=== PATIENT | female | born 2000 | race Caucasian/White ===

== ENCOUNTER 2020-05-20 21:36 | Emergency (ER) | payer OTHER ==
[~2020-05-20] VITALS: Ht 157.5 cm; Wt 47.6 kg
[~2020-05-20 21:36] MED LIST: ACETAMINOPHEN325 M1 PO; BUPROPION HCL75 MG PO; CLONAZEPAM0.5 MG PO; HYDROXYZINE HCL25 MG PO; IBUPROFEN400 MG PO; METOCLOPRAMIDE10 MG PO; ONDANSETRON ODT4 MG PO; PROAIR HFA8.5 GM INH; SERTRALINE HCL100 MG PO; SERTRALINE HCL50 MG PO; TRAZODONE HCL100 MG PO; XULANE PATCH1 EACH TD; ZANTAC150 MG; ZOFRAN4 MG PO; ZOLOFT50 MG PO
--- OUTSIDE RECORDS SUMMARY | 2020-05-20 21:40 | XMS ---
PreManage Notification: TERESA OLIVER Security Map And Chart Mounter Events No recent Security Events currently on file CRITERIA MET - [facility] Guidelines CARE PROVIDERS [facility]Formerly [facility] Current PHONE: Unknown Guidelines Source: [facility] [place] Guidelines Date: 01/18/2020 Care Coordination: Currently engaged in individual therapy with [facility].\T\nbsp; Please contact [facility] with mental health concerns.\T\nbsp; To/[place]: [phone].\T\nbsp; [facility] Crisis: [phone]. E.D. VISIT COUNT (12 MO.) 3 [facility] T[facility] NOTE: Visits indicate total known visits. ED/UCC VISIT TRACKING (12 MO.) 05/20/2020 21:37 [facility] TYPE: Emergency COMPLAINT: - ALLERGIC REACTION [facility]2020 [facility] DIAGNOSES: - Unspecified ovarian cyst, unspecified side - Abdominal Pain - ovarian pain 02[facility]17[facility]2020 [facility] DIAGNOSES: - SOB, Cough - Fever (9 Weeks To 74 Years) - Unspecified asthma with (acute) exacerbation - Cough 01/29/2020 19:26 [facility] [place] BUI TYPE: Urgent Care DIAGNOSES: - Acute bronchitis, unspecified - Cough - Cough - Shortness of Breath - Fever - Mild persistent asthma, uncomplicated 01/17/2020 08:15 [facility] Lucrecia BUI TYPE: Emergency DIAGNOSES: - Kidney pain - Tubulo-interstitial nephritis, not specified as acute or 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
[2020-05-20] MEDS ORDERED: NORG-EE 0.18-01 EACH PO (21:56)
== END 2020-05-20 23:50 | disposition home or self-care (01) ==
LOC: ED 21:36
DX: F32.9 Major depressive disorder, single episode, unspecified (principal); F41.9 Anxiety disorder, unspecified; Z91.09 Other allergy status, other than to drugs and biological substances; Z88.8 Allergy status to other drugs, medicaments and biological substances; Z91.02 Food additives allergy status; Z88.0 Allergy status to penicillin; Z88.2 Allergy status to sulfonamides; Z88.6 Allergy status to analgesic agent; Z79.899 Other long term (current) drug therapy
CPT/HCPCS: 96374; 96375; 99283-25; J0171; J1200; J2930; J7030

== ENCOUNTER 2020-08-25 23:16 | Emergency (ER) | payer OTHER ==
[~2020-08-25] VITALS: Ht 157.5 cm; Wt 45.4 kg
[~2020-08-25 23:16] MED LIST changes: +NORG-EE 0.18-01 EACH PO
--- OUTSIDE RECORDS SUMMARY | 2020-08-25 23:18 | XMS ---
PreManage Notification: TERESA OLIVER Security Manager Flight Events No recent Security Events currently on file CRITERIA MET - [facility] Guidelines [facility] Current PHONE: Unknown Guidelines Source: [facility] [place] Guidelines Date: 01/18/2020 Care Coordination: Currently engaged in individual therapy with [facility].\T\nbsp; Please contact [facility] with mental health concerns.\T\nbsp; To/[place]: .\T\nbsp; [facility] Crisis: [phone]. [facility].D. [facility]12 MO.) [facility] NOTE: Visits indicate total known visits. ED/UCC VISIT TRACKING (12 MO.) 08/25/2020 23:16 [facility] [place] TYPE: Emergency COMPLAINT: - CHEST PAIN 05/20/2020 21:37 [facility] [place] TYPE: Emergency COMPLAINT: - ALLERGIC REACTION DIAGNOSES: - Anxiety disorder, unspecified - Other terminal clerk (current) drug therapy - Allergy status to sulfonamides status - Major depressive disorder, single episode, unspecified - Food additives allergy status - Other adverse food reactions, not elsewhere classified, initi - Allergy status to analgesic agent status - Allergy status to penicillin - Other allergy status, other than to drugs and biological subs - Allergy status to other drugs, medicaments and biological sub 04/05/2020 13:51 [facility] [place] TYPE: Emergency DIAGNOSES: - Unspecified ovarian cyst, unspecified side - Abdominal Pain - ovarian pain 02/17/2020 14:16 [facility] [place] TYPE: Emergency DIAGNOSES: - SOB, Cough - Fever (9 Weeks To 74 Years) - Unspecified asthma with (acute) exacerbation - Cough 01/29/2020 19:26 [facility] [place] TYPE: Urgent Care DIAGNOSES: - Acute bronchitis, unspecified - Cough - Cough - Shortness of Breath - Fever - Mild persistent asthma, uncomplicated [facility]17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
[2020-08-25] MEDS ORDERED: BACLOFEN10 MG PO (23:34)
[2020-08-25] MEDS ORDERED: ESCITALOPRAM OX10 MG PO (23:35)
[2020-08-25] MEDS ORDERED: EPINEPHRIN0.3 MG/0.3 IM (23:35)
--- NOTE | 2020-08-26 14:00 | EKG ---
[facility] [address] [place], [place] [address] Signed Normal sinus rhythm Low voltage QRS Septal infarct , age undetermined Abnormal ECG No previous ECGs available Confirmed by GIBRAN MURDOCK DO ([id number]) on 08/26/2020 1:59:53 PM Electronically Signed By: GIBRAN MURDOCK DO 08/26/20 1400 PATIENT NAME: TERESA OLIVER Electrocardiogram DATE OF : [birth year] PHYSICIAN: GIBRAN MURDOCK DO REPORT #: [id number] REPORT IS CONFIDENTIAL AND NOT TO BE RELEASED WITHOUT AUTHORIZATION
== END 2020-08-26 01:09 | disposition home or self-care (01) ==
LOC: ED 23:16
DX: R00.2 Palpitations (principal); F32.9 Major depressive disorder, single episode, unspecified; J45.909 Unspecified asthma, uncomplicated; Z88.8 Allergy status to other drugs, medicaments and biological substances; Z88.2 Allergy status to sulfonamides; Z91.018 Allergy to other foods; Z88.1 Allergy status to other antibiotic agents; Z88.0 Allergy status to penicillin; Z79.899 Other long term (current) drug therapy
CPT/HCPCS: 71045; 80053; 83735; 84484; 84703; 85025; 93005; 93010; 99285-25

== ENCOUNTER 2020-09-05 12:19 | Emergency (ER) | payer OTHER ==
[~2020-09-05] VITALS: Ht 157.5 cm; Wt 45.4 kg
--- OUTSIDE RECORDS SUMMARY | ~2020-09-05 | XMS | Encounter Summary ---
Demographics + + + | Address | [address] [facility] | | | [place] [address] | + + + | Home Phone | | + + + | Preferred Language | Unknown | + + + | Marital Status | Single | + + + | Hinduism Affiliation | 1059 | + + + | Race | Unknown | + + + | Ethnic Group | Not or | + + + Author + + + | Author | [facility] | | | and [place] | + + + | Organization | [facility] | | | and [place] | + + + | Address | Unknown | + + + | Phone | Unavailable | + + + Support + + + + + | Name | Relationship | Address | Phone | + + + + + | Jesu De La Cruz | ECON | [address] | | | | | [place] [address] | | + + + + + | Concha Paulino | ECON | [address] | | | | | [place] [address] | | + + + + + Care Team Providers + +------+ + | Care Transition Rn Name | Role | Phone | + +------+ + | No, Physician | PCP | Unavailable | + +------+ + Reason for Visit +--------+ + | Reason | Comments | +--------+ + | Other | Room 1: rash over the last couple months that pops up in verious | | | parts of the body, starts out itchy and the becomes scaley. 3 wks | | | ago started developing joint paint, mostly middle joints in | | | fingers | +--------+ + Encounter Details +--------+---------+ + + + | Date | Type | Department | Care Team | Description | +--------+---------+ + + + | 12/17/ | Office | [facility] | Deborah Knutson, | Arthralgia, | | 2018 | Visit | CARE [address] | Need updated | unspecified joint | | | | [place] | address | (Primary Dx) | | | | [address] | | | | | | [phone] | | | +--------+---------+ + + + Social History + +-------+ +--------+------+ | Tobacco Use | Types | Packs/Day | Years | Date | | | | | Used | | + +-------+ +--------+------+ | Former Smoker | | | | | + +-------+ +--------+------+ + +---+---+---+ | Smokeless Tobacco: | | | | | Never Used | | | | + +---+---+---+ + + | Comments: Second hand smoke | + + + + +---------+ + | Alcohol Use | Drinks/Week | oz/Week | Comments | + + +---------+ + | No | 0 Standard drinks | 0.0 | | | | or equivalent | | | + + +---------+ + + + + | Sex Assigned at | Date Recorded | | | | + + + | Female | | + + + documented as of this encounter Last Filed Vital Signs + + + + + | Vital Sign | Reading | Time Taken | Comments | + + + + + | Blood Pressure | 107/66 | 12/17/2017 5:24 PM | | | | | PST | | + + + + + | Pulse | 87 | 12/17/2017 5:24 PM | | | | | PST | | + + + + + | Temperature | 37.1 C (98.7 F) | 12/17/2017 5:24 PM | | | | | PST | | + + + + + | Respiratory Rate | 16 | 12/17/2017 5:24 PM | | | | | PST | | + + + + + | Oxygen Saturation | 99% | 12/17/2017 5:24 PM | | | | | PST | | + + + + + | Inhaled Oxygen | - | - | | | Concentration | | | | + + + + + | Weight | 49.8 kg (109 lb 12.6 | 12/17/2017 5:24 PM | | | | oz) | PST | | + + + + + | Height | 157.5 cm (5' 2") | 12/17/2017 5:24 PM | | | | | PST | | + + + + + | Body Mass Index | 20.08 | 12/17/2017 5:24 PM | | | | | PST | | + + + + + documented in this encounter Functional Status + + + + | Functional Status | Response | Date of Assessment | + + + + | Are you deaf or do you have serious | No | 09/20/2017 | | difficulty hearing? | | | + + + + | Are you blind or do you have serious | No | 09/20/2017 | | difficulty seeing, even when wearing | | | | glasses? | | | + + + + | Do you have serious difficulty walking or | No | 09/20/2017 | | climbing stairs? (5 years old or older) | | | + + + + | Do you have difficulty dressing or bathing? | No | 09/20/2017 | | (5 years old or older) | | | + + + + | Because of a physical, mental, or emotional | No | 09/20/2017 | | condition, do you have difficulty doing | | | | errands alone such as visiting a doctor's | | | | office or shopping? [15 years old or | | | | older)] | | | + + + + + + + + | Cognitive Status | Response | Date of Assessment | + + + + | Because of a physical, mental, or emotional | No | 09/20/2017 | | condition, do you have serious difficulty | | | | concentrating, remembering, or making | | | | decisions? (5 years old or older) | | | + + + + documented as of this encounter Patient Instructions Patient Instructions Deborah Knutson MD - 12/17/2017 5:00 PM PST We will contact you with your test results in a few days. Make a f/u appt with your primary care provider. Arthralgia Arthralgia is the term for pain in or around the joint. It is a symptom, not a disease. Thi s pain may involve one or more joints. In some cases, the pain moves from joint to joint. There are many causes for joint pain. These include: Injury Osteoarthritis (wearing out of the joint surface) Gout (inflammation of the joint due to crystals in the joint fluid) Infection inside the joint Bursitis(inflammation of the fluid-filled sacs around the joint) Autoimmune disorders such as rheumatoid arthritis or lupus Tendonitis (inflammation of chords that attach muscle to bone) Home care Rest the involved joint(s) until your symptoms improve. You may be prescribed pain medicine. If none is prescribed, you may use acetaminophen or ibuprofen to control pain and inflammation. Follow-up care Follow up with your healthcare provider or as advised. When to seek medical advice Contact your healthcare provider right away if any of the following occurs: Pain,swelling, or redness ofjoint increases Pain worsens or recurs after a period of improvement Pain moves to other joints You cannot bear weight on the affected joint You cannot move the affected joint Joint appears deformed New rash appears Fever of100.4F (38C)or higher, or as directed by your healthcare provider Date Last Reviewed: 01/23/[id number] [employer]. [address] [place] [address]. All [facility] ts reserved. This information is not intended as a substitute for professional medical care. Always follow your healthcare professional's instructions. documented in this encounter Progress Notes Delfina Murphy, Recovery Specialist - 12/17/2017 5:00 PM PSTVenipuncture to patients lef t AC with 23 gauge butterfly needle. One purple, two gold and one green top were drawn. Jenifer ent tolerated well. Verified name and date of of patient before provider orders were carried out. Deborah Garner MD - 12/17/2017 5:00 PM PSTFormatting of this note might be different from daniel raya original. Subjective: Chief Complaint: Other (Room 1: rash over the last couple months that pops up in verious pa rts of the body, starts out itchy and the becomes scaley. 3 wks ago started developing joint paint, mostly middle joints in fingers) History of Present Illness: Renny is a 17 y.o. female who comes in complaining of itchy rash 2 months. Cats and dogs s italo ones for long time. Recently joints stiff and swelling sonia in mornings. Hands and knee s. Toes sonia 1st 3. No travel. No tick bite. No similar rash or joint pain. No fever. No recent illness. No other complaints. Patient's medications, allergies, past medical, surgical, social and family histories were reviewed and updated as appropriate. Scoliosis No rheum fam hx PGM arthritis Father colon ca 42 y.o. Mother emphysema, anxiety depression bipolar No surg. All see aboe ROS: see HPI Review of Systems Constitutional: Positive for malaise/fatigue. Negative for chills, diaphoresis, fever and w eight loss. HENT: Positive for sore throat. Negative for congestion, ear discharge, ear pain, hearing l oss, nosebleeds, sinus pain and tinnitus. Eyes: Negative. Negative for blurred vision. Respiratory: Positive for cough and sputum production. Negative for hemoptysis, shortness o f breath, wheezing and stridor. Cardiovascular: Positive for chest pain and palpitations. Negative for orthopnea, claudicat ion, leg swelling and PND. Gastrointestinal: Positive for constipation. Genitourinary: Negative. Musculoskeletal: Positive for back pain and joint pain. Negative for falls, myalgias and ne ck pain. Skin: Positive for itching and rash. Neurological: Positive for weakness. Negative for dizziness, tingling, tremors, sensory river nge, speech change, focal weakness, seizures, loss of consciousness and headaches. Endo/Heme/Allergies: Negative. Psychiatric/Behavioral: Positive for depression. Negative for hallucinations, memory loss, substance abuse and suicidal ideas. The patient is nervous/anxious. The patient does not hav e insomnia. productive thick clear sputum Second hand smoke. Objective: BP 107/66 | Pulse 87 | Temp 37.1 C (98.7 F) (Temporal) | Resp 16 | Ht 1.575 m (5' 2 ") | Wt 49.8 kg (109 lb 12.6 oz) | LMP 11/25/2017 | SpO2 99% | ? No | BMI 20.08 kg/m General Appearance: Alert, cooperative, no distress, appears stated age Acne on face Head normocephalic atraumatic Pupils equal round reactive to light and accommodation extraocular movements intact Face muscle strong and symmetric Ears nose and throat are clear. No petechiae on the palate No cervical lymphadenopathy Heart regular rate and rhythm no murmur Lungs clear to auscultation bilaterally Abdomen positive bowel sounds soft nontender nondistended no hepatosplenomegaly Extremities no clubbing cyanosis or edema. No swelling in the joints no redness or rash on the hands or feet. The rash that she has is 6-8 mm nummular patches very minimally scaly. She has them on the trunk and the proximal extremities. She has a patch on the left antecubital area but not o n the right. Labs today: Recent Results (from the past 24 hour(s)) CBC with Differential Result Value Ref Range WBC 7.4 4.0 - 11.0 K/uL RBC 4.94 3.70 - 5.20 M/uL Hgb 13.8 11.5 - 16.0 g/dL Hct 42.4 34.0 - 47.0 % MCV 85.8 83.0 - 101.0 fL MCH 28.0 28.0 - 35.0 pg MCHC 32.6 32.0 - 36.0 g/dL RDW-CV 15.1 (H) <15.0 % Platelet Count 349 140 - 440 K/uL MPV 7.8 fL % Neutrophils 59.0 45.0 - 82.0 % % Lymphocytes 20.1 20.0 - 45.0 % % Monocytes 13.0 (H) 4.0 - 12.0 % % Eosinophils 7.2 (H) 0.0 - 5.0 % % Basophils 0.7 0.0 - 1.0 % Absolute Neutrophils 4.40 1.80 - 8.50 K/uL Absolute Lymphocytes 1.50 0.60 - 3.20 K/uL Absolute Monocytes 1.00 0.00 - 1.00 K/uL Absolute Eosinophils 0.50 (H) 0.00 - 0.40 K/uL Absolute Basophils 0.00 0.00 - 0.10 K/uL Sedimentation Rate Result Value Ref Range ESR 7 <20 mm/hr C-Reactive Protein Result Value Ref Range CRP 0.91 <8.00 mg/L Comprehensive Metabolic Panel Result Value Ref Range NA 139 136 - 149 mmol/L K 3.8 3.5 - 5.1 mmol/L CL 103 98 - 109 mmol/L CO2 25 24 - 31 mmol/L ANION GAP 11 3 - 16 mmol/L GLUCOSE 87 70 - 109 mg/dL BUN 9 7 - 18 mg/dL Creatinine, Serum/Plasma 0.71 0.60 - 1.30 mg/dL eGFR if not >60 >=60 mL/min/1.73m2 CALCIUM 9.7 8.3 - 10.5 mg/dL ALBUMIN 4.0 3.2 - 5.0 g/dL BILIRUBIN TOTAL 0.5 0.1 - 1.5 mg/dL Total protein 7.5 6.0 - 7.8 g/dL AST 29 10 - 42 U/L ALT 53 (H) 6 - 45 U/L ALK PHOS 75 40 - 110 U/L GLOBULIN 3.5 2.1 - 3.8 g/dL Albumin/Globulin ratio 1.1 0.8 - 2.0 BUN/CREA 12.7 The flat plate x-ray of the hands are within normal limits Assessment and Plans: 1. Arthralgia, unspecified joint CBC with Differential Sedimentation Rate C-Reactive Protein Rheumatoid Factor, Quant SAPPHIRE Qual, EIA, Reflex Comprehensive Metabolic Panel XR Joint Survey AP 2 + Joints 1 Vw CANCELED: XR Hand Left 3 + Vw I will call her with the rest of her lab results and she will make a follow-up appointment with her primary care provider. If she gets a fever or feels acutely ill she needs to come back immediately. This note was dictated using interspireSubmit voice recognition software. Occasional wrong- word or s ound-alike substitutions may have occurred due to the inherent limitations of voice recognit ion software. Please read the chart carefully and recognize, using context, where these subs titutions have occurred. documented in this en counter Plan of Treatment +--------+ + + + + | Date | Type | Specialty | Care Team | Description | +--------+ + + + + | 09/07/ | Office | Cardiology | McdonaldTawana | | | 2019 | Visit | | GLEN Morales [address] | | | | | | [address] | | | | | | [place] [address] | | | | | | [phone] | | | | | | | | +--------+ + + + + | 09/22/ | Office | Physical Medicine | Gonzalo Merchant, | | | 2019 | Visit | and Rehabilitation | [address] | | | | | | [place] | | | | | | [address] | | | | | | | | +--------+ + + + + | 09/29/ | Virtual | Pain Medicine | Peggy Arreola | | | 2019 | Office | | [address] | | | | Visit | | [address] | | | | | | [place] | | | | | | [place] [address] | | | | | | [phone] | | | | | | | | +--------+ + + + + | 01/24/ | Office | Family Medicine | Kurt Campbell, | | | 2020 | Visit | | DO [address] | | | | | | [place] | | | | | | [address] | | | | | | | | +--------+ + + + + documented as of this encounter Procedures + +--------+ + + + | Procedure Name | Priori | Date/Time | Associated Diagnosis | Comments | | | ty | | | | + +--------+ + + + | XR JOINT SURVEY AP 2 | STAT | 12/17/2017 | Arthralgia, | Results for this | | + JOINTS | | 6:37 PM | unspecified joint | procedure are in the | | | | PST | | results section. | + +--------+ + + + | SAPPHIRE MORINEIA | Routin | 12/17/2017 | Arthralgia, | Results for this | | | e | 6:18 PM | unspecified joint | procedure are in the | | | | PST | | results section. | + +--------+ + + + | SEDIMENTATION RATE | STAT | 12/17/2017 | Arthralgia, | Results for this | | | | 6:18 PM | unspecified joint | procedure are in the | | | | PST | | results section. | + +--------+ + + + | CBC WITH | STAT | 12/17/2017 | Arthralgia, | Results for this | | DIFFERENTIAL | | 6:18 PM | unspecified joint | procedure are in the | | | | PST | | results section. | + +--------+ + + + | RHEUMATOID FACTOR, | STAT | 12/17/2017 | Arthralgia, | Results for this | | QUANT | | 6:18 PM | unspecified joint | procedure are in the | | | | PST | | results section. | + +--------+ + + + | C-REACTIVE PROTEIN | STAT | 12/17/2017 | Arthralgia, | Results for this | | | | 6:18 PM | unspecified joint | procedure are in the | | | | PST | | results section. | + +--------+ + + + | COMPREHENSIVE | STAT | 12/17/2017 | Arthralgia, | Results for this | | METABOLIC PANEL | | 6:18 PM | unspecified joint | procedure are in the | | | | PST | | results section. | + +--------+ + + + documented in this encounter Results XR Joint Survey AP 2 + Joints 1 Vw (12/17/2017 6:37 PM PST) + + | Specimen | + + | | + + + + + | Narrative | Performed At | + + + | CLINICAL INFORMATION: joint stiffness and swelling. | [facility] | | COMPARISON: None available. FINDINGS: AP view both hands. | [facility] | | Bones: No fracture or dislocation. No periostitis or erosion. | MED[facility]ENTER | | Joints: Joint spaces are preserved and subchondral surfaces are | - IMAGING | | smooth. Soft tissue: No swelling or abnormal calcification. | | | IMPRESSION - Normal AP radiographs of the hands. Dictated and | | | Signed by: Kanu Sanchez MD Electronically signed: 12/17/2017 | | | 7:06 PM | | + + + + + | Procedure Note | + + | Arnaldo Dunn Results In - 12/17/2017 7:09 PM PST | | CLINICAL INFORMATION: joint stiffness and swelling. | | | | COMPARISON: None available. | | | | FINDINGS: | | AP view both hands. | | | | Bones: No fracture or dislocation. No periostitis or erosion. | | | | Joints: Joint spaces are preserved and subchondral surfaces are smooth. | | | | Soft tissue: No swelling or abnormal calcification. | | | | IMPRESSION - Normal AP radiographs of the hands. | | | | Dictated and Signed by: Kanu Sanchez MD | | Electronically signed: 12/17/2017 7:06 PM | + + + + + + + | Performing | Address | City/State/Zipcode | Phone Number | | Organization | | | | + + + + + | [facility] | [address] | [place], [place] | [phone] | | [facility] | | [address] | | | - IMAGING | | | | + + + + + Comprehensive Metabolic Panel (12/17/2017 6:18 PM PST) + + + + + + | Component | Value | Ref Range | Performed | Pathologist | | | | | At | Signature | + + + + + + | Na | 139 | 136 - 149 | [facility] | | | | | mmol/L | [facility] | | | | | | [facility] | | | | | | CENTER - | | | | | | LABORATORY | | + + + + + + | K | 3.8 | 3.5 - 5.1 | [facility] | | | | | mmol/L | [facility] | | | | | | [facility] | | | | | | CENTER - | | | | | | LABORATORY | | + + + + + + | Cl | 103 | 98 - 109 mmol/L | [facility] | | | | | | [facility] | | | | | | [facility] | | | | | | CENTER - | | | | | | LABORATORY | | + + + + + + | CO2 | 25 | 24 - 31 mmol/L | [facility] | | | | | | [facility] | | | | | | [facility] | | | | | | C[facility] - | | | | | | LABORATORY | | + + + + + + | Anion Gap | 11 | 3 - 16 mmol/L | [facility] | | | | | | [facility] | | | | | | [facility] | | | | | | CENTER - | | | | | | LABORATORY | | + + + + + + | Glucose | 87 | 70 - 109 mg/dL | [facility] | | | | | | [facility] | | | | | | MEDICAL | | | | | | CENTER - | | | | | | LABORATORY | | + + + + + + | BUN | 9 | 7 - 18 mg/dL | [facility] | | | | | | [facility] | | | | | | [facility] | | | | | | CENTER - | | | | | | LABORATORY | | + + + + + + | Creatinine | 0.71 | 0.60 - 1.30 | [facility] | | | | | mg/dL | [facility] | | | | | | MEDICAL | | | | | | CENTER - | | | | | | LABORATORY | | + + + + + + | eGFR, | >60Comment: GLOMERULAR | >=60 | [facility] | | | non- | FILTRATION | mL/min/1.73m2 | [facility] | | | [place] | RATE,ESTIMATED | | MEDICAL | | | | mL/min/1.36h4Whwz than | | CENTER - | | | | 60 Chronic kidney | | LABORATORY | | | | disease,if found over a | | | | | | 3-month period.Less than | | | | | | 15 Kidney failureFor | | | | | | | | | | | | Americans,multiply the | | | | | | calculated GFR by 1.21. | | | | | | | | | | + + + + + + | Calcium | 9.7 | 8.3 - 10.5 | [facility] | | | | | mg/dL | [facility] | | | | | | MEDICAL | | | | | | CENTER - | | | | | | LABORATORY | | + + + + + + | Albumin | 4.0 | 3.2 - 5.0 g/dL | [facility] | | | | | [facility] | | | | | | [facility] - | | | | | | LABORATORY | | + + + + + + | Bilirubin | 0.5 | 0.1 - 1.5 mg/dL | [facility] | | | Total | | | [facility] | | | | | | MEDICAL | | | | | | CENTER - | | | | | | LABORATORY | | + + + + + + | Total | 7.5 | 6.0 - 7.8 g/dL | [facility] | | | Protein | | | [facility] | | | | | | MEDICAL | | | | | | CENTER - | | | | | | LABORATORY | | + + + + + + | AST | 29 | 10 - 42 U/L | [facility] | | | | | | [facility] | | | | | | MEDICAL | | | | | | CENTER - | | | | | | LABORATORY | | + + + + + + | ALT | 53 (H) | 6 - 45 U/L | [facility] | | | | | | [facility] | | | | | | MEDICAL | | | | | | CENTER - | | | | | | LABORATORY | | + + + + + + | Alkaline | 75 | 40 - 110 U/L | [facility] | | | Phosphatase | | | [facility] | | | | | | MEDICAL | | | | | | CENTER - | | | | | | LABORATORY | | + + + + + + | Globulin | 3.5 | 2.1 - 3.8 g/dL | [facility] | | | | | | [facility] | | | | | | MEDICAL | | | | | | CENTER - | | | | | | LABORATORY | | + + + + + + | Albumin/Angelica | 1.1 | 0.8 - 2.0 | [facility] | | | bulin Ratio | | | [facility] | | | | | | MEDICAL | | | | | | CENTER - | | | | | | LABORATORY | | + + + + + + | BUN/Creatin | 12.7 | | [facility] | | | ine Ratio | | | [facility] | | | | | | MEDICAL | | | | | | CENTER - | | | | | | LABORATORY | | + + + + + + + + | Specimen | + + | Blood | + + + + + + + | Performing | Address | City/State/Zipcode | Phone Number | | Organization | | | | + + + + + | [facility] | [address] | [place], [place] | [phone] | | [facility] | | [address] | | | - LABORATORY | | | | + + + + + CLAY Villalpando Reflex (12/17/2017 6:18 PM PST) + + + + + + | Component | Value | Ref Range | Performed | Pathologist | | | | | At | Signature | + + + + + + | SAPPHIRE Screen, | Negative | Negative | [facility] | | | Qual | | | [facility] | | | | | | - [facility] | | + + + + + + + + | Specimen | + + | Blood | + + + + + | Narrative | Performed At | + + + | Performed at: 01 - [facility] [place] [address], | REFERENCE LAB | | [place], [place] [id number] Cut Off Operator Scorer: Eros Godinez MD, Phone: | [facility] | | [phone] | | + + + + + + + + | Performing | Address | City/State/Zipcode | Phone Number | | Organization | | | | + + + + + | [facility] | [address] | [place], [place] | [phone] | | [facility] | [place] | [address] | | + + + + + Rheumatoid Factor, Quant (12/17/2017 6:18 PM PST) + +-------+ + + + | Component | Value | Ref Range | Performed | Pathologist | | | | | At | Signature | + +-------+ + + + | RHEUMATOID | <10.0 | 0.0 - 13.9 | [facility] | | | FACTOR | | IU/mL | [facility] | | | | | | - [facility] | | + +-------+ + + + + + | Specimen | + + | Blood | + + + + + | Narrative | Performed At | + + + | Performed at: 01 - [facility] [place] [address], | REFERENCE LAB | | [place], [place] [id number] Cut Off Operator Scorer: Eros Godinez MD, Phone: | [facility] | | [phone] | | + + + + + + + + | Performing | Address | City/State/Zipcode | Phone Number | | Organization | | | | + + + + + | [facility] | [address] | [place], [place] | [phone] | | [facility] | [facility] | [address] | | + + + + + C-Reactive Protein (12/17/2017 6:18 PM PST) + +-------+ + + + | Component | Value | Ref Range | Performed | Pathologist | | | | | At | Signature | + +-------+ + + + | CRP | 0.91 | <8.00 mg/L | [facility] | | | | | | [facility] | | | | | | [facility] | | | | | | CENTER - | | | | | | LABORATORY | | + +-------+ + + + + + | Specimen | + + | Blood | + + + + + + + | Performing | Address | City/State/Zipcode | Phone Number | | Organization | | | | + + + + + | [facility] | [address] | [place] | [phone] | | [facility] | | [address] | | | - LABORATORY | | | | + + + + + Sedimentation Rate (12/17/2017 6:18 PM PST) + +-------+ + + + | Component | Value | Ref Range | Performed | Pathologist | | | | | At | Signature | + +-------+ + + + | Erythrocyte | 7 | <20 mm/hr | [facility] | | | | | | [facility] | | | Sedimentati | | | MEDICAL | | | on Rate | | | CENTER - | | | | | | LABORATORY | | + +-------+ + + + + + | Specimen | + + | Blood | + + + + + + + | Performing | Address | City/State/Zipcode | Phone Number | | Organization | | | | + + + + + | [facility] | [address] | [place] | [phone] | | [facility] | | [address] | | | - LABORATORY | | | | + + + + + CBC with Differential (12/17/2017 6:18 PM PST) + + + + + + | Component | Value | Ref Range | Performed | Pathologist | | | | | At | Signature | + + + + + + | White Blood | 7.4 | 4.0 - 11.0 K/uL | [facility] | | | Cells | | | [facility] | | | | | | MEDICAL | | | | | | CENTER - | | | | | | LABORATORY | | + + + + + + | Red Blood | 4.94 | 3.70 - 5.20 | [facility] | | | Cells | | M/uL | [facility] | | | | | | MEDICAL | | | | | | CENTER - | | | | | | LABORATORY | | + + + + + + | Hemoglobin | 13.8 | 11.5 - 16.0 | [facility] | | | | | g/dL | [facility] | | | | | | MEDICAL | | | | | | CENTER - | | | | | | LABORATORY | | + + + + + + | Hematocrit | 42.4 | 34.0 - 47.0 % | [facility] | | | | | | [facility] | | | | | | MEDICAL | | | | | | CENTER - | | | | | | LABORATORY | | + + + + + + | MCV | 85.8 | 83.0 - 101.0 fL | [facility] | | | | | | [facility] | | | | | | MEDICAL | | | | | | CENTER - | | | | | | LABORATORY | | + + + + + + | MCH | 28.0 | 28.0 - 35.0 pg | [facility] | | | | | | [facility] | | | | | | MEDICAL | | | | | | CENTER - | | | | | | LABORATORY | | + + + + + + | MCHC | 32.6 | 32.0 - 36.0 | [facility] | | | | | g/dL | [facility] | | | | | | MEDICAL | | | | | | CENTER - | | | | | | LABORATORY | | + + + + + + | RDW-CV | 15.1 (H) | <15.0 % | [facility] | | | | | | [facility] | | | | | | MEDICAL | | | | | | CENTER - | | | | | | LABORATORY | | + + + + + + | Platelet | 349 | 140 - 440 K/uL | [facility] | | | Count | | | [facility] | | | | | | MEDICAL | | | | | | CENTER - | | | | | | LABORATORY | | + + + + + + | MPV | 7.8 | fL | [facility] | | | | | | [facility] | | | | | | MEDICAL | | | | | | CENTER - | | | | | | LABORATORY | | + + + + + + | % | 59.0 | 45.0 - 82.0 % | [facility] | | | Neutrophils | | | [facility] | | | | | | MEDICAL | | | | | | CENTER - | | | | | | LABORATORY | | + + + + + + | % | 20.1 | 20.0 - 45.0 % | [facility] | | | Lymphocytes | | | [facility] | [facility] | [facility] | | | | [facility] - | | | | | | LABORATORY | | + + + + + + | % Monocytes | 13.0 (H) | 4.0 - 12.0 % | [facility] | | | | | | [facility] | [facility] | | | | | | [facility] - | | | | | | LABORATORY | | + + + + + + | % | 7.2 (H) | 0.0 - 5.0 % | [facility] | | | Eosinophils | | | [facility] | | [facility] | | [facility] | | | | | | [facility] - | | | | | | LABORATORY | | + + + + + + | % Basophils | 0.7 | 0.0 - 1.0 % | [facility] | | | | | | [facility] | [facility] | | | | | [facility] - | | | | | | LABORATORY | | + + + + + + | Absolute | 4.40 | 1.80 - 8.50 | [facility] | | | Neutrophils | | K/uL | [facility] | [facility] | | | | | | [facility] - | | | | | | LABORATORY | | + + + + + + | Absolute | 1.50 | 0.60 - 3.20 | [facility] | | | Lymphocytes | | K/uL | [facility] | [facility] | [facility] | | | | | | [facility] - | | | | | | LABORATORY | | + + + + + + | Absolute | 1.00 | 0.00 - 1.00 | [facility] | | | Monocytes | | K/uL | [facility] | [facility] | [facility] | | | | | | [facility] - | | | | | | LABORATORY | | + + + + + + | Absolute | 0.50 (H) | 0.00 - 0.40 | [facility] | | | Eosinophils | | K/uL | [facility] | | [facility] | [facility] | | | | | | [facility] - | | | | | | LABORATORY | | + + + + + + | Absolute | 0.00 | 0.00 - 0.10 | [facility] | | | Basophils | | K/uL | [facility] | | [facility] | [facility] | | | | | | [facility] - | | | | | | LABORATORY | | + + + + + + + + | Specimen | + + | Blood | + + + + + + + | Performing | Address | City/State/Zipcode | Phone Number | | Organization | | | | + + + + + | [facility] | [address] | [place] | [phone] | | [facility] | | [address] | | | - LABORATORY | | | | + + + + + documented in this encounter Visit Diagnoses + + | Diagnosis | + + | Arthralgia, unspecified joint - Primary | + + documented in this encounter
--- OUTSIDE RECORDS SUMMARY | ~2020-09-05 | XMS | Encounter Summary ---
Demographics + + + | Address | [address] | | | [place] [address] | + + + | Home Phone | | + + + | Preferred Language | Unknown | + + + | Marital Status | Single | + + + | Restorationism Affiliation | 1059 | + + + | Race | Unknown | + + + | Ethnic Group | Not or | + + + Author + + + | Author | [facility] | | | and [place] | + + + | Organization | [facility] | | [...] | | | | | [place] [address] | | + + + + + | Concha Paulino | ECON | [address] | | | | | [place] [address] | | + + + + + Care Team Providers + +------+ + | Care Crane Manager Name | Role | Phone | + +------+ + PCP | Unavailable | + +------+ + Encounter Details +--------+ + + + + | Date | Type | Department | Care Team | Description | +--------+ + + + + | 08/07/ | Abstract | [facility] | [facility] | | | 2011 | | Conversion Location | SR | | | | | [address] | | | | | | [place], [place] | | | | | | [address] | | | | | | [phone] | | | +--------+ + + + + Social History + +-------+ +--------+------+ | Tobacco Use | Types | Packs/Day | Years | Date | | | | | Used | | + +-------+ +--------+------+ | Never Assessed | | | | | + +-------+ +--------+------+ + + + | Sex Assigned at | Date Recorded | | | | + + + | Female | | + + + documented as of this encounter Last Filed Vital Signs + + + + + | Vital Sign | Reading | Time Taken | Comments | + + + + + | Blood Pressure | - | - | | + + + + + | Pulse | - | - | | + + + + + | Temperature | - | - | | + + + + + | Respiratory Rate | - | - | | + + + + + | Oxygen Saturation | - | - | | + + + + + | Inhaled Oxygen | - | - | | | Concentration | | | | + + + + + | Weight | 43.7 kg (96 lb 6.4 | 03/08/2011 12:00 AM | | | | oz) | PDT | | + + + + + | Height | - | - | | + + + + + | Body Mass Index | - | - | | + + + + + documented in this encounter Plan of Treatment +--------+ + + + + | Date | Type | Specialty | Care Team | Description | +--------+ + + + + | 09/07/ | Office | Cardiology | Tawana Mcdonald | | | 2019 | Visit | | [address] | | | | | | [address] | | | | | | [place] [address] | | | | | | [phone] | | | | | | | | +--------+ + + + + | 09/22/ | Office | Physical Medicine | Gonzalo Merchant, | | | 2019 | Visit | and Rehabilitation | MD [address] | | | | | | [place] | | | | | | [id number] | | | | | | | | +--------+ + + + + | 09/29/ | Virtual | Pain Medicine | Peggy Arreola | | | 2019 | Office | | [address] | | | | Visit | | [place] [address] | | | | | | [place] | | | | | | [place] [address] | | | | | | [phone] | | | | | | | | +--------+ + + + + | 01/24/ | Office | Family Medicine | Kurt Campbell, | | | 2020 | Visit | | DO Evon [address] | | | | | | [place] | | | | | | [id number] | | | | | | | | +--------+ + + + + documented as of this encounter Visit Diagnoses Not on filedocumented in this encounter"
--- OUTSIDE RECORDS SUMMARY | ~2020-09-05 | XMS | Encounter Summary ---
Demographics + + + | Address | [address] | | | [place] [address] | + + + | Home Phone | | + + + | Preferred Language | Unknown | + + + | Marital Status | Single | + + + | Adventism Affiliation | 1059 | + + + | Race | Unknown | + + + | Ethnic Group | Not or | + + + Author + + + | Author | [facility] | | | and [place] | + + + | Organization | [facility] | | | and [...] [address] | | | | | [place] [address] | | + + + + + | Concha Paulino | ECON | [address] | | | | | [place] [address] | | + + + + + Care Team Providers + +------+ + | Care Editorial Specialist Name | Role | Phone | + +------+ + | Leonid Osorio MD | PCP | | + +------+ + Reason for Visit + + + | Reason | Comments | + + + | Cough | | + + + | Shortness of Breath | | + + + Encounter Details +--------+ + + + + | Date | Type | Department | Care Team | Description | +--------+ + + + + | 03/22/ | Emergency | [facility] | Kurt Robles MD | Exacerbation of | | 2017 | | [facility] | [address] | asthma, unspecified | | | | CENTER [address] | [place] [address] | asthma severity, | | | | [place] | [address] | unspecified whether | | | | [address] | | persistent (Primary | | | | [phone] | | Dx); Upper | | | | | | respiratory tract | | | | | | infection, | | | | | | unspecified type | +--------+ + + + + Social [...] | + +---+---+---+ + + | Comments: vaping right now | + + + + +---------+ + [...] + + + | Blood Pressure | 130/87 | 03/22/2018 12:44 PM | | | | | PDT | | + + + + + | Pulse | 108 | 03/22/2018 12:44 PM | | | | | PDT | | + + + + + | Temperature | 36.7 C (98.1 F) | 03/22/2018 12:21 PM | | | | | PDT | | + + + + + | Respiratory Rate | 16 | 03/22/2018 12:43 PM | | | | | PDT | | + + + + + | Oxygen Saturation | 96% | 03/22/2018 12:44 PM | | | | | PDT | | + + + + + | Inhaled Oxygen | - | - | | | Concentration | | | | + + + + + | Weight | 45.4 kg (100 lb) | 03/22/2018 12:21 PM | | | | | PDT | | + + + + + | Height | 157.5 cm (5' 2") | 03/22/2018 12:21 PM | | | | | PDT | | + + + + + | Body Mass Index | 18.29 | 03/22/2018 12:21 PM | | | | | PDT | | + + + [...] + + documented as of this encounter Discharge Instructions Instructions Kurt Robles MD - 03/22/2018Steroid as prescribed Continue your inhaler asthma medication as needed Return for worsening symptoms, other new complaints documented in this encounter Medications at Time of Discharge + + + +---------+ + + | Medication | Sig | Dispensed | Refills | Start | End Date | | | | | | Date | | + + + +---------+ + + | albuterol 90 | Inhale 2 puffs into | | 0 | | | | mcg/puff inhaler | the lungs every 6 | | | | 8 | | | hours as needed for | | | | | | | Wheezing. | | | | | + + + +---------+ + + | diphenhydrAMINE | Take 25 mg by mouth | | 0 | | | | (BENADRYL) 25 mg | every 6 hours as | | | | 0 | | tablet | needed for Itching. | | | | | + + + +---------+ + + | EPINEPHrine | Inject 0.3 mLs into | 1 each | 0 | 02/15/20 | | | auto-injector 0.3 | the muscle as needed | | | 18 | 9 | | mg/0.3 mL injection | for Anaphylaxis. | | | | | + + + +---------+ + + | hydrOXYzine | Take 25 mg by mouth | | 0 | | | | (ATARAX) 50 MG | as needed. | | | | 9 | | tablet | | | | | | + + + +---------+ + + | predniSONE | Take 2 tablets by | 8 | 0 | 03/22/20 | | | (DELTASONE) 20 mg | mouth Daily for 4 | tablet | | 18 | 8 | | tablet | days. | | | | | + + + +---------+ + + | sertraline | Take 1 tablet by | 30 | 5 | 09/25/20 | | | (ZOLOFT) 25 mg | mouth Daily. | tablet | | 17 | 9 | | tablet | | | | | | + + + +---------+ + + documented as of this encounter Kurt Burgos MD - 03/22/2018 12:36 PM PDT Emergency Department Encounter NotE CHIEF COMPLAINT Cough and shortness of breath HPI Renny Saravia is a 18 y.o. female who presents to the Emergency Department with his tory of cough and shortness of breath is been ongoing for approximately a month. She been d iagnosed with a pneumonia at the end of January treated with 2 courses of antibiotics as well as steroids. She has a history of asthma been using a nebulizer as well as her inhaler at h ome. She has not had continued fevers. She has had continued cough and continued dyspnea. She has some dyspnea on exertion as well. No chest pain. No pleuritic pain. No hemoptysi s. No leg pain or swelling. PAST MEDICAL & SURGICAL HISTORY Past Medical History: Diagnosis Date Asthma Depression Depression Hypotension Kidney cysts right Migraine Past Surgical History: Procedure Laterality Date DENTAL SURGERY SOCIAL HISTORY Social History Social History Marital status: Single Spouse name: N/A Number of children: N/A Years of education: N/A Social History Main Topics Smoking status: Former Smoker Smokeless tobacco: Never Used Comment: vaping right now Alcohol use No Drug use: No Sexual activity: Yes Partners: Male control/ protection: Yes Other Topics Concern None Social History Narrative Lives with bio mom and m-grandmother CURRENT MEDICATIONS Previous Medications ALBUTEROL 90 MCG/PUFF INHALER Inhale 2 puffs into the lungs every 6 hours as needed for Wheezing. DIPHENHYDRAMINE (BENADRYL) 25 MG TABLET Take 25 mg by mouth every 6 hours as needed for Itching. EPINEPHRINE AUTO-INJECTOR 0.3 MG/0.3 ML INJECTION Inject 0.3 mLs into the muscle as nee ded for Anaphylaxis. HYDROXYZINE (ATARAX) 50 MG TABLET Take 25 mg by mouth as needed. SERTRALINE (ZOLOFT) 25 MG TABLET Take 1 tablet by mouth Daily. ALLERGIES Allergies Allergen Reactions Rey Flavor Hives Nystatin Swelling Omeprazole Shortness Of Breath Penicillins Hives and Nausea And Vomiting Sulfa Antibiotics Shortness Of Breath Venlafaxine Anaphylaxis Aspirin Other (See Comments) fever Fish Oil Whooping cough injection/ extreme reaction Nitrofuran Derivatives Nausea And Vomiting Penicillins REVIEW OF SYSTEMS As in history of present illness. A 10 system of review was otherwise negative. PHYSICAL EXAM VITAL SIGNS: (first vital signs):Temp: 36.7 C (98.1 F) Pulse: 114 Resp: 16 SpO2: 100 % BP: 127/66 General: Alert, appears fatigued, non toxic HEENT: Normocephalic, atraumatic, OP clear, EOMI Neck: supple, full range of motion, no tracheal deviation Cardiovascular: Tachycardic rate and rhythm, no murmurs, rubs or gallops Pulmonary: Wheezes in both lung henderson, good aeration, she sounds dyspneic when speaking to her Abdominal: Soft, non tender, no rebound or guarding Musculoskeletal: normal ROM, no edema Neurologic: Alert, no cranial nerve deficits, no focal deficits Skin: warm and dry IMAGING STUDIES X-ray chest without acute ASSESSMENT & ED COURSE Patient here with asthma exacerbation. She treated with a DuoNeb. Given her recent pneumo darien we did do an x-ray that does not reveal acute infiltrate. We'll go and treat with a cou rse of prednisone. She is to continue her inhalers. Do not think she needs recurrent antib iotics at this time. She is given return precautions. DISPOSITION Discharge FINAL IMPRESSION Asthma exacerbation URI Kurt Robles MD 03/22/18 [address] Studen t CANTEEN MANAGER - 03/22/2018 12:20 PM PDTPt complains that she has been sick x 1 month with this produc tive cough and shortness of breath. Has been treated with 2 rounds of prednisone and 2 diffe rent abx, inhaler and duoneb, albuterol documented in this encounter Plan of Treatment +--------+ + + + + | Date | Type | Specialty | Care Team | Description | +--------+ + + + + | 09/07/ | Office | Cardiology | Tawana Mcdonald | | | 2019 | Visit | | GLEN [address] | | | | | [address] | | | | | | [place] [address] | | | | | | [phone] | | | | | | | | +--------+ + + + + | 09/22/ | Office | Physical Medicine | Gonzalo Merchant, | | | 2019 | Visit | and Rehabilitation | [address] | | | | | | [place] | | | | | | [address] | | | | | | | | +--------+ + + + + | 09/29/ | Virtual | Pain Medicine | Peggy Arreola | | | 2019 | Office | | [address] | | | | Visit | | [place] | | | | | | [place], | | | | | | [place] [address] | | | | | | [phone] | | | | | | | | +--------+ + + + + | 01/24/ | Office | Family Medicine | Kurt Campbell, | | | 2020 | Visit | | DO [address] | | | | | | [place] | | | | | | [address] | | | | | | | | +--------+ + + + + + +------+--------+ + + | Name | Type | Priori | Associated Diagnoses | Date/Time | | | | ty | | | + +------+--------+ + + | ED INFORMATION | FRANDY | Routin | | 03/22/2018 12:13 PM | | EXCHANGE | | e | | PDT | + +------+--------+ + + documented as of this encounter Procedures + +--------+ + + + | Procedure Name | Priori | Date/Time | Associated Diagnosis | Comments | | | ty | | | | + +--------+ + + + | XR CHEST AP PORTABLE | STAT | 03/22/2018 | | Results for this | | | | 1:40 PM | | procedure are in the | | | | PDT | | results section. | + +--------+ + + + | ED INFORMATION | Routin | 03/22/2018 | | | | EXCHANGE | e | 12:13 PM | | | | | | PDT | | | + +--------+ + + + +---+--------+ | | | | | Proced | | | ure | | | Note - | | | Joel, | | | Lab In | | | | | | Hlseve | | | n - | | | 04/28/ | | | 2018 | | | 12:14 | | | PM PDT | | | | | | Format | | | ting | | | of | | | this | | | note | | | might | | | be | | | differ | | | ent | | | from | | | the | | | origin | | | al.[email or web address] | | | E?NOTI | | | FICATI | | | ON?04[birth year] | | | [birth year]/201 | | | 8 | | | 12:10? | | | HUDDLE | | | SON, | | | RENNY | | | M?MRN: | | | | | | [id number] | | | [id number] | | | his | | | patien | | | t has | | | regist | | | ered | | | at the | | | | | | Provid | | | ence | | | [facility] | | | [facility] | | | | | | Emerge | | | ncy | | | Depart | | | ment | | | For | | | more | | | inform | | | ation | | | visit: | | | | | | https: | | | //secu | | | [email or web address] | | | ecarep | | | [email or web address] | | | m/kati | | | ent/ba | | | [id number] | | | -[id number] | | | [id number] | | | [id number] | | | [id number] | | | [id number] | | | Securi | | | ty | | | Events | | | No | | | recent | | | | | | Securi | | | ty | | | Events | | | | | | curren | | | tly on | | | | | | fileED | | | Care | | | Guidel | | | inesTh | | | ere | | | are | | | curren | | | tly no | | | ED | | | Care | | | Guidel | | | cricket | | | in | | | FRANDY | | | for | | | this | | | patien | | | t. | | | Please | | | check | | | your | | | facili | | | ty's | | | medica | | | l | | | record | | | s | | | system | | | .Recen | | | t | | | Emerge | | | ncy | | | Depart | | | ment | | | Visit | | | Summar | | | yAdmit | | | Date | | | Facili | | | ty | | | City | | | State | | | Type | | | Major | | | Type | | | Diagno | | | ses or | | | Chief | | | | | | Compla | | | int | | | Apr | | | 28, | | | 2018 | | | Provid | | | ence | | | [facility] [place] | | | [place] | | | Emerge | | | ncy | | | Emerge | | | ncy | | | SOB, | | | Cough | | | Mar | | | 31, | | | 2018 | | | Provid | | | ence | | | [facility] | [facility] | [place] | | | [place] | | | Emerge | | | ncy | | | Emerge | | | ncy | | | poss | | | pneumo | | | darien | | | | | | Medica | | | tion | | | Refill | | | | | | Elevat | | | ed | | | blood- | | | pressu | | | re | | | readin | | | g, | | | withou | | | t | | | diagno | | | sis of | | | | | | hypert | | | ension | | | | | | Lobar | | | pneumo | | | darien, | | | unspec | | | ified | | | organi | | | sm | | | Mar | | | 23, | | | 2018 | | | Provid | | | ence | | | [facility] | [place] | | | [place] | | | Emerge | | | ncy | | | Emerge | | | ncy | | | Cough | | | | | | Other | | | specif | | | ied | | | respir | | | atory | | | disord | | | ers | | | Lobar | | | | | | pneumo | | | darien, | | | unspec | | | ified | | | organi | | | sm | | | Mar | | | 20, | | | 2018 | | | Provid | | | ence | | | [facility] | [facility] | [place] | | | [place] | | | Emerge | | | ncy | | | Emerge | | | ncy | | | | | | shortn | | | ess of | | | | | | breath | | | | | | Modera | | | te | | | persis | | | tent | | | asthma | | | with | | | (acute | | | ) | | | exacer | | | bation | | | Feb | | | 4, | | | 2018 | | | [facility] | | | [facility]ce | [facility] [place] | | | [place] | | | Emerge | | | ncy | | | Emerge | | | ncy | | | | | | Irregu | | | lar | | | Heart | | | Beat | | | | | | Palpit | | | ations | | | E.D. | | | Visit | | | Count | | | (12 | | | mo.)Fa | | | cility | | | | | | Visits | | | Low | | | Acuity | | | | | | Provid | | | ence | | | [facility] | | [facility] | Med[facility] | | | l | | | Center | | | 1 0 | | | Provid | | | ence | | | [facility] | | | [facility] | [facility] | | | l | | | Center | | | 7 0 | | | [place] [facility] [place] [facility] | | [facility] | | | [facility] | | | [facility] | | | al 3 0 | | | Total | | | 11 0 | | | Note: | | | Visits | | | | | | indica | | | te | | | total | | | known | | | visits | | | . | | | Medica | | | id Low | | | | | | Acuity | | | Dx | | | are | | | the | | | number | | | of | | | primar | | | y | | | diagno | | | ses on | | | the | | | Medica | | | id's | | | Low | | | Acuity | | | dx | | | list. | | | | | | Recent | | | | | | Inpati | | | ent | | | Visit | | | [place] | | | yNo | | | record | | | ed | | | inpati | | | ent | | | visits | | | . PDMP | | | | | | Report | | | PDMP | | | query | | | found | | | no | | | report | | | .Care | | | Provid | | | ersPro | | | vider | | | PRC | | | Type | | | Phone | | | Fax | | | Servic | | | e | | | Dates | | | Tomeka | | | | | | Fatimah | | | | | | Fabina | | | | | | Montag | | | hi | | | Primar | | | y Care | | | | | | Curren | | | t | | | Criter | | | ia met | | | 4 | | | visits | | | in | | | 60Know | | | n | | | Aliase | | | sNo | | | known | | | aliase | | | s. The | | | above | | | | | | inform | | | ation | | | is | | | provid | | | ed for | | | the | | | sole | | | purpos | | | e of | | | patien | | | t | | | treatm | | | ent. | | | Use of | | | this | | | inform | | | ation | | | beyond | | | the | | | terms | | | of | | | Data | | | Sharin | | | g | | | Memora | | | ndum | | | of | | | Unders | | | tandin | | | g and | | | Licens | | | e | | | Agreem | | | ent is | | | | | | prohib | | | ited. | | | In | | | certai | | | n | | | cases | | | not | | | all | | | visits | | | may | | | be | | | repres | | | ented. | | | | | | Consul | | | t the | | | aforem | | | ention | | | ed | | | facili | | | ties | | | for | | | additi | | | onal | | | inform | | | ation. | | | ? | | | 2018 | | | [employer]le[employer] | | | tive | | | Medica | | | l | | | [employer] | | | logies | | | , [employer] | | | - | | | [place] | | | [place] | | | [place], | | | [place] - | | | [email or web address] | | | ollect | | | ivemed | | | icalte | | | [email or web address] | | | | +---+--------+ documented in this encounter Results XR Chest AP Portable (03/22/2018 1:40 PM PDT) + + | Specimen | + + | | + + + + + | Narrative | Performed At | + + + | CLINICAL INFORMATION: COUGH SHORTNESS OF BREATH. COMPARISON: | [facility] | | 02/22/2018. FINDINGS: Portable frontal chest radiograph | | | Lungs: No focal airspace disease, pleural effusion, or pneumothorax. | | | Heart/mediastinum: Cardiac silhouette is of normal size. Central | | | pulmonary vasculature has a normal appearance. Bones: No acute | | | osseous abnormality appreciated. Sigmoid curvature of the spine. | | | IMPRESSION - No acute disease. Dictated and Signed by: Kanu | | | MD Daniel Electronically signed: 03/22/2018 2:13 PM | | + + + + + | Procedure Note | + + | Joel, Rad Results In - 03/22/2018 2:16 PM PDT | | CLINICAL INFORMATION: COUGH | | SHORTNESS OF BREATH. | | | | COMPARISON: 02/22/2018. | | | | FINDINGS: | | Portable frontal chest radiograph | | | | Lungs: No focal airspace disease, pleural effusion, or pneumothorax. | | | | Heart/mediastinum: Cardiac silhouette is of normal size. Central pulmonary | | vasculature has a normal appearance. | | | | Bones: No acute osseous abnormality appreciated. Sigmoid curvature of the | | spine. | | | | IMPRESSION - No acute disease. | | | | Dictated and Signed by: Kanu Sanchez MD | | Electronically signed: 03/22/2018 2:13 PM | + + + +---------+ + + | Performing | Address | City/State/Zipcode | Phone Number | | Organization | | | | + +---------+ + + | [facility] | | | | + +---------+ + + documented in this encounter Visit Diagnoses + + | Diagnosis | + + | Exacerbation of asthma, unspecified asthma severity, unspecified whether persistent - | | Primary | + + | Upper respiratory tract infection, unspecified type | + + documented in this encounter Administered Medications + +--------+ +-------+------+------+ | Medication Order | MAR | Action | Dose | Rate | Site | | | Action | Date | | | | + +--------+ +-------+------+------+ | albuterol-ipratropium (DUONEB) | Given | 03/22/20 | 3 mLs | | | | 2.5-0.5 mg/3 mL nebulizer | | 18 12:40 | | | | | solution 3 mL 3 mL, | | PM PDT | | | | | Nebulization, RT Once, Sat | | | | | | | 03/22/18 at 1240, For 1 dose | | | | | | + +--------+ +-------+------+------+ +---+---+ | | | +---+---+ + +-------+ +-------+---+---+ | predniSONE (DELTASONE) tablet | Given | 03/22/20 | 40 mg | | | | 40 mg 40 mg, Oral, ONCE, Sat | | 18 12:55 | | | | | 03/22/18 at 1240, For 1 dose | | PM PDT | | | | + +-------+ +-------+---+---+ +---+---+ | | | +---+---+ documented in this encounter
--- OUTSIDE RECORDS SUMMARY | ~2020-09-05 | XMS | Encounter Summary ---
Demographics + + + | Address | [address] [facility] | | | [place] [address] | + + + | Home Phone | | + + + | Preferred Language | Unknown | + + + | Marital Status | Single | + + + | Moravian Affiliation | 1059 | + + + | Race | Unknown | + + + | Ethnic Group | Not or | + + + Author + + + | Author | [facility] | | | and [place] | + + + | Organization | [facility] | | | [...] | | | | | [place] [address] | | + + + + + | Concha Paulino | ECON | [address] | | | | | [place] [address] | | + + + + + Care Team Providers + +------+ + | Care Medical Voucher Clerk Name | Role | Phone | + +------+ + | Kurt Campbell DO | PCP | | + +------+ + Reason for Visit +---------+ + | Reason | Comments | +---------+ + | Anxiety | | +---------+ + Encounter Details +--------+---------+ + + + | Date | Type | Department | Care Team | Description | +--------+---------+ + + + | 06/22/ | Office | [facility] | Kurt Campbell, | Depression, | | 2019 | Visit | [facility] | DO [address] | unspecified | | | | [address] | [place] | depression type | | | | [place] | [address] | (Primary Dx); | | | | [address] | | Anxiety | | | | [phone] | | | +--------+---------+ + + + Social History + +-------+ +--------+ + | Tobacco Use | Types | Packs/Day | Years | Date | | | | | Used | | + +-------+ +--------+ + | Former Smoker | | 0.5 | 6 | Quit: 2017 | + +-------+ +--------+ + + +---+---+---+ | Smokeless Tobacco: | | | | | Current User | | | | + +---+---+---+ + + | Comments: vaping right now 3 mg nicotine occasionally | + + + + +---------+ + | Alcohol Use | Drinks/Week | oz/Week | Comments | + + +---------+ + | Not Currently | 5 Glasses of wine | 5.0 | | + + +---------+ + + + + | Sex Assigned at | Date Recorded | | | | + + + | Female | 03/08/2019 7:36 PM PDT | + + + documented as of this encounter Last Filed Vital Signs + +---------+ + + | Vital Sign | Reading | Time Taken | Comments | + +---------+ + + | Blood Pressure | 106/72 | 06/22/2020 10:17 AM | | | | | PDT | | + +---------+ + + | Pulse | 94 | 06/22/2020 10:17 AM | | | | | PDT | | + +---------+ + + | Temperature | - | - | | + +---------+ + + | Respiratory Rate | - | - | | + +---------+ + + | Oxygen Saturation | 98% | 06/22/2020 10:17 AM | | | | | PDT | | + +---------+ + + | Inhaled Oxygen | - | - | | | Concentration | | | | + +---------+ + + | Weight | - | - | | + +---------+ + + | Height | - | - | | + +---------+ + + | Body Mass Index | - | - | | + +---------+ + + documented in this encounter Functional [...] of this encounter Patient Instructions Patient Instructions Miya Jolly, Monogram Technician - 06/22/2020 10:30 AM LIBIAFormmilo boucher of this note might be different from the original. What Can Cause Depression? Depression is a real, treatable illness. Certain factors can trigger it. Below are some com mon known causes. Any of these factors, or a combination of them, can make depression more l ikely. Sometimes depression occurs for no one clear reason. But no matter what the cause, de pression can be treated. Loss or stress Depression can occur in children and adults, but it often starts in adulthood. Normal grief over a , breakup, or other loss may become depression. Life stresses such as physical abuse, job loss, or sudden change in finances can also trigger depression. In some cases, ye ars go by before the depression sets in. Family history The tendency to develop depression seems to run in families. If one or more of your close r elatives (parents, grandparents, or siblings) have had an episode of depression, you may be more likely to develop the illness, too. Drugs or alcohol Drugs and alcohol can upset the chemical balance in the brain. This can lead to an episode of depression. Some depressed people turn to drugs or alcohol to numb the pain. But in the l alan run, doing so just makes depression worse. Medicines Depression can be a side effect of some medicines for high blood pressure, cancer, pain, an d other health problems. So tell your doctor about how you are feeling and discuss the role your medicines may play in your symptoms. But never stop taking one without your doctor s OK. Physical illness Being sick can make anyone feel frustrated and sad. But some health problems may cause actu al changes in your brain that lead to depression. Other health problems such as an underacti ve thyroid may be mistaken for depression. Hormones Hormones carry messages in the bloodstream. They may affect brain chemicals, leading to dep ression. Women may get depressed when their hormone levels change quickly, such as just befo re their period, after giving , or during menopause. Buzz Referrals last reviewed this educational content on 07/26/201919999054-1336 [facility]. [address] [place] [address], [place] [address]. All righ ts reserved. This information is not intended as a substitute for professional medical care. Always follow your healthcare professional's instructions. Treating Anxiety Disorders with Therapy If you have an anxiety disorder, you don t have to suffer anymore. Treatment is available . Therapy (also called counseling) is often a helpful treatment for anxiety disorders. With therapy, a specially trained professional (therapist) helps you face and learn to manage you r anxiety. Therapy can be short-term or long-term depending on your needs. In some cases, me dicine may also be prescribed with therapy. It may take time before you notice how much ther apy is helping, but stick with it. With therapy, you can feel better. Cognitive behavioral therapy (CBT) Cognitive behavioral therapy (CBT) teaches you to manage anxiety. It does this by helping y ou understand how you think and act when you re anxious. Research has shown CBT to be a ve ry effective treatment for anxiety disorders. How CBT is run is almost like a class. It invo lves homework and activities to build skills that teach you to cope with anxiety step by sejal p. It can be done in a group or one-on-one, and often takes place for a set number of sessio ns. CBT has two main parts: Cognitive therapyhelps you identify the negative, irrational thoughts that occur with your anxiety. You ll learn to replace these with more positive, realistic thoughts. Behavioral therapyhelps you change how you react to anxiety. You ll learn coping ski lls and methods for relaxing to help you better deal with anxiety. Other forms of therapy Other therapy methods may work better for you than CBT. Or, you may move from CBT to anothe r form of therapy as your treatment needs change. This may mean meeting with a therapist by yourself or in a group. Therapy can also help you work through problems in your life, such a s drug or alcohol dependence, that may be making your anxiety worse. Getting better takes time Therapy will help you feel better and teach you skills to help manage anxiety adjunct faculty for medical terminology. Bu t change doesn t happen right away. It takes a commitment from you. And treatment only wor ks if you learn to face the causes of your anxiety. So, you might feel worse before you feel better. This can sometimes make it hard to stick with it. But remember: Therapy is a very e ffective treatment. The results will be well worth it. Helping yourself If anxiety is wearing you down, here are some things you can do to cope: Check with your doctor and rule out any physical problems that may be causing the anxiet y symptoms. If an anxiety disorder is diagnosed, seek mental healthcare. This is an illness and it c an respond to treatment. Most types of anxiety disorders will respond to talk therapy and me dicine. Educate yourself about anxiety disorders. Keep track of helpful online resources and guerra ks you can use during stressful periods. Try stress management techniques such as meditation. Consider online or in-person support groups. Don t fight your feelings. Anxiety feeds itself. The more you worry about it, the wors e it gets. Instead, try to identify what might have triggered your anxiety. Then try to put this threat in perspective. Keep in mind that you can t control everything about a situation. Change what you can and let the rest take its course. Exercise it s a great way to relieve tension and help your body feel relaxed. Examine your life for stress, and try to find ways to reduce it. Avoid caffeine and nicotine, which can make anxiety symptoms worse. Fight the temptation to turn to alcohol or unprescribed drugs for relief. They only make things worse in the long run. Buzz Referrals last reviewed this educational content on 11/25/201619990084-2027 [facility]. [address] [place] [address], [place] [address]. All righ ts reserved. This information is not intended as a substitute for professional medical care. Always follow your healthcare professional's instructions. documented in this encounter Progress Notes Kurt Campbell, - 06/22/2020 10:30 AM PDTFormatting of this note might be different fro m the original. Subjective: Renny Saravia is a 20 y.o. female patient of Kurt Campbell DO. Chief Complaint: Anxiety HPI Depression/Anxiety: Patient is here for follow-up of Depression and anxiety. Started on Prozac 20 mg daily at last visit. Patient is tolerating well, reports some insom darien. Mild improvement with moods. Continues to take Wellbutrin 150 mg daily in addition to. Genesight results to review. Symptoms are improving Sleep Disturbance: Yes, troubles falling asleep. Are you currently in counseling: no, [facility] PHQ9 SC[facility] Office Visit from 06/22/2020 in [facility] Office Visit from 2019 in [facility] Office Visit from 08/13/2019 in [facility] Office Visit from 04/01/2019 in [facility] PHQ-9 Total Score (Patient Health Questionnaire) 10 17 6 16 ANXIETY/STRESS SCORE Office Visit from 06/22/2020 in [facility] Office Visit from 2019 in [facility] Office Visit from 08/13/2019 in [facility] Office Visit from 04/01/2019 in [facility] MARIE-7 Score (General Anxiety Disorder) 12 19 11 21 PREVENTIVE CARE/PRIOR VISITS 1. Any recommendations from Health Maintenance: No Preventative Services TOPIC LAST DONE NEXT DUE Hepatitis C Screening 03/02/2019 Vaccine: Influenza 12/03/2013 07/26/2020 Cervical Cancer Screening (Pap) 04/25/2020 04/25/2021 Well Child Check 2002 Vaccine: Dtap/Tdap/Td 07/25/2010 2010 Vaccine: Pneumococcal 19-64 2005 2. Any immunizations necessary: yes Immunization History Administered Date(s) Administered DT (PED) 1999, 1999, 06/28/2000, 06/15/2004 DTP (PED) 1999 HEP A, 2 DOSE (PED/ADOL) 01/31/2001, 08/04/2001 HIB (PRP-T), 4 DOSE (PED) 1999, 1999, 1999, 06/28/2000 HPV, QUADRIVALENT, 3 DOSE (ADOL/ADULT) 08/05/2014, 11/08/2014, 04/12/2015 Hep B (PED/ADOL) 3 DOSE 1999, 1999, 1999 INFLUENZA TRIV W/PRES(PED/ADOL/ADULT),MULTIDOSE 09/14/2009, 10/02/2010, 12/03/2013 INFLUENZA, B4Y2-30, UNSPECIFIED 12/28/2009 INFLUENZA, UNSPECIFIED FORMULATION 09/14/2009, 10/02/2010, 12/03/2013 IPV, 4 DOSE (PED/ADULT) 1999, 1999, 06/28/2000, 01/29/2003 MENINGOCOCCAL CONJUGATE,MENACTRA (PED/ADOL/ADULT) 07/25/2010, 07/25/2015 MMR, 2 DOSE (PED/ADULT) 06/28/2000, 01/29/2003 PNEUMOCOCCAL PCV7 (PED) 01/25/2001 TD PF (5 LF TETANUS) (ADOL/ADULT) 07/25/2010 VARICELLA, 2 DOSE (VARIVAX) 06/28/2000, 02/23/2008 Allergies Allergen Reactions Rey Flavor Hives Effexor [Venlafaxine] Anaphylaxis Nystatin Swelling Omeprazole Shortness Of Breath Penicillins Hives and Nausea And Vomiting Sulfa Antibiotics Shortness Of Breath Aspirin Other (See Comments) fever Fish Oil Unknown Whooping cough injection/ extreme reaction Macrobid [Nitrofuran Derivatives] Nausea And Vomiting Penicillins Unknown Medications: She has a current medication list which includes the following prescription(s): acetaminoph en, albuterol, albuterol, bupropion, cholecalciferol, cyclobenzaprine, diphenhydramine, epin ephrine auto-injector, escitalopram, flovent hfa, fluoxetine, fluticasone, melatonin, and no rgestimate-ethinyl estradiol. Past Medical History She has a past medical history of Abdominal pain, Adverse food reaction, Allergic rhinitis, Anaphylaxis, Anemia, Anxiety, Arthralgia, Asthma, Blood in stool, Chest pain, Depression, E nvironmental allergies, History of pneumonia, Hypotension, Kidney cysts, Migraine, OCD (obse ssive compulsive disorder), Oppositional defiant disorder, and Substance abuse (HCC). Past Surgical History She has a past surgical history that includes Dental surgery; Colonoscopy; Upper gastrointe stinal endoscopy; and Colonoscopy (N/A, 05/27/2019). Family History: Her family history includes Alcohol abuse in her maternal grandfather; Arthritis in her mat ernal grandfather, maternal grandmother, and paternal grandmother; Asthma in her father and mother; Bipolar disorder in her mother; Breast cancer in her paternal grandmother; COPD in h er maternal grandmother, mother, and paternal grandfather; Cancer in her maternal aunt, mate rnal grandfather, and paternal grandfather; Cardiomyopathy in an other family member; Colon cancer (age of onset: 42) in her father; Depression in her father, maternal grandmother, and mother; Diabetes in her paternal grandmother; Early in her sister; Emphysema in her m other; Heart defect in her maternal grandmother; Heart disease in her maternal grandmother; Heart surgery in her maternal grandmother; High blood pressure in her maternal grandmother a nd mother; High cholesterol in her maternal grandmother and mother; Kidney disease in her mo ther; Mental illness in her father and mother; Miscarriages / stillbirths in her maternal gr andmother; Other (see comment) in her father; Other (see comment) (age of onset: 47) in her maternal grandfather; Pulmonary embolism in her maternal grandmother; Stroke in her maternal grandmother. Social History: Social History Socioeconomic History Marital status: Single Spouse name: Not on file Number of children: Not on file Years of education: Not on file Highest education level: Not on file Tobacco Use Smoking status: Former Smoker Packs/day: 0.50 Years: 6.00 Pack years: 3.00 Quit date: 2016 Years since quittin.5 Smokeless tobacco: Current User Tobacco comment: vaping right now 3 mg nicotine occasionally Substance and Sexual Activity Alcohol use: Not Currently Alcohol/week: 5.0 standard drinks Types: 5 Glasses of wine per week Drug use: Not Currently Types: Marijuana Comment: CBD oil as needed Sexual activity: Yes Partners: Male control/protection: Yes Social History Narrative Lives with bio mom and m-grandmother Review of Systems Constitutional: Negative. Respiratory: Negative. Cardiovascular: Negative. Psychiatric/Behavioral: Positive for dysphoric mood and sleep disturbance. The patient is n ervous/anxious. Objective: Vitals: 06/22/20 1017 BP: 106/72 Pulse: 94 SpO2: 98% Physical Exam Constitutional: She is oriented to person, place, and time. She appears well-developed and well-nourished. No distress. Appropriately dressed and groomed HENT: Head: Normocephalic and atraumatic. Eyes: Conjunctivae are normal. Musculoskeletal: General: No edema. Neurological: She is alert and oriented to person, place, and time. Skin: Skin is warm and dry. Psychiatric: She has a normal mood and affect. Her behavior is normal. Nursing note and vitals reviewed. Ortho Exam Results for orders placed or performed in visit on 06/16/20 ECG 12 lead Result Value Ref Range VENTRICULAR RATE EKG 86 BPM ATRIAL RATE 86 BPM P-R INTERVAL 154 ms QRS DURATION 88 ms Q-T INTERVAL 366 ms Q-T INTERVAL (CORRECTED) 437 ms P WAVE AXIS 79 degrees QRS AXIS 63 degrees T AXIS 64 degrees INTERPRETATION TEXT Normal sinus rhythm with sinus arrhythmia Normal ECG When compared with ECG of 12-MAR-2019 11:15, No significant change was found Confirmed by ELIO YANES MD ([id number]) on 06/17/2020 1:23:30 PM Assessment and Plans: 1. Depression, unspecified depression type escitalopram (LEXAPRO) 10 mg tablet 2. Anxiety escitalopram (LEXAPRO) 10 mg tablet Reviewed genesight results with patient. Prozac was recently started and she has noticed a mild improvement with depression but there are other options from genesight results that hav e potential to cause less side effects and further improvement. Lexapro has been well tolerated from family members and this medication is on her list as t olerated. Will discontinue Prozac and trial Lexapro 10 mg daily. Medication risks and benefits were reviewed in detail today with the patient who expresses understanding. Pt will call or return with problems or side effects. Return in about 4 weeks (around 07/20/2020) for depression/anxiety - medication. Care instructions and warning signs were discussed. Medications per orders. Side effects discussed. Labs and investigations per orders STEFF Shetty, charles acting as a scribe on behalf of, and in the presence of Kurt bee DO. Electronically signed by: Miya Jolly, Monogram Technician 06/22/2020 10:09 AM PDT I have reviewed and edited this note: Kurt Campbell DO 06/23/20 I, Kurt Campbell DO , personally performed the services described in this documentation, as scribed in my presence by Miya Jolly and it is both accurate and complete. Electronical ly signed by Kurt Campbell DO on 06/23/2020 at 6:26 PM PDT . This note is dictated using [employer] voice recognition software. This note was dictated but not proofread. It may contain some grammatical errors. documented in this en counter Plan of Treatment +--------+ + + + + | Date | Type | Specialty | Care Team | Description | +--------+ + + + + | 09/07/ | Office | Cardiology | Tawana Mcdonald | | 2019 | Visit | | [place] [address] | | | | | | [address] | | | | | | [place] [address] | | | | | | [phone] | | | | | | | | +--------+ + + + + | 09/22/ | Office | Physical Medicine | Gonzalo Merchant, | | | 2019 | Visit | and Rehabilitation | MD [address]ane [address] | | | | | | [place] | | | | | | [address] | | | | | | | | +--------+ + + + + | 09/29/ | Virtual | Pain Medicine | Peggy Arreola | | 2019 | Office | | [address] | | | | Visit | | [place] | | | | | | [place] | | | | | | [place] [address] | | | | | | [phone] | | | | | | | | +--------+ + + + + | 01/24/ | Office | Family Medicine | Kurt Campbell, | | | 2020 | Visit | | DO [address] | | | | | | [place] | | | | | | [address] | | | | | | | | +--------+ + + + + documented as of this encounter Procedures + +--------+ + + + | Procedure Name | Priori | Date/Time | Associated Diagnosis | Comments | | | ty | | | | + +--------+ + + + | LABS - EXTERNAL SCAN | | 06/06/2020 | | Results for this | | | | 12:00 AM | | procedure are in the | | | | PDT | | results section. | + +--------+ + + + documented in this encounter Results LABS - EXTERNAL SCAN (06/06/2020 12:00 AM PDT) + + + | Narrative | Performed At | + + + | Ordered by an | | | unspecified provider. | | + + + documented in this encounter Visit Diagnoses + + | Diagnosis | + + | Depression, unspecified depression type - Primary | + + | Anxiety Anxiety state, unspecified | + + documented in this encounter"
--- OUTSIDE RECORDS SUMMARY | ~2020-09-05 | XMS | Encounter Summary ---
Demographics + + + | Address | [address] | | | [place] [address] | + + + | Home Phone | | + + + | Preferred Language | Unknown | + + + | Marital Status | Single | + + + | Temple Affiliation | 1059 | + + + | Race | Unknown | + + + | Ethnic Group | Not or | + + + Author + + + | Author | [facility] | | | and [place] | + + + | Organization | [facility] | | | [...] | | | | | [place] [address] | | + + + + + | Concha Paulino | ECON | [address] | | | | | [place] [address] | | + + + + + Care Team Providers + +------+ + | Care Casting Assistant Name | Role | Phone | + +------+ + | Leonid Osorio MD | PCP | | + +------+ + Reason for Visit +---------+--------+ + | Reason | Onset | Comments | | | Date | | +---------+--------+ + | Results | 08/13/ | | | | 2015 | | +---------+--------+ + Encounter Details +--------+ + + + + | Date | Type | Department | Care Team | Description | +--------+ + + + + | 08/13/ | Telephone | [facility] | Riky Saldaña | Results | | 2015 | | 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 [address] | | | | Disease [address] | | | | [address] | [place] | | | | | [place] | [address] | | | | | [address] | [phone] | | | | | [phone] | | | +--------+ + + + + Social History + +-------+ +--------+------+ | Tobacco Use | Types | Packs/Day | Years | Date | | | | | Used | | + +-------+ +--------+------+ | Passive Smoke | | | | | | Exposure - Never | | | | | | Smoker | | | | | + +-------+ +--------+------+ + +---+---+---+ | Smokeless Tobacco: | | | | | Never Used | | | | + +---+---+---+ + + +---------+ + | Alcohol Use [...] + + documented as of this encounter Miscellaneous Notes Telephone Encounter - Meena Martinez LPN - 08/13/2016 3:51 PM PDT Grandmother inf ormed that monitor reviewed and all recordings normal even during unspecified symptom and to F/U as needed and to maintain excellent hydration, grandmother verbalizes understands instr uctions elepho ne Encounter - Meena Martinez LPN - 08/13/2016 3:50 PM PDT----- Message from Bruno Saldaña MD sent at 08/13/2016 8:28 PDT ----- Event monitor results [facility] Staff-- Please call the patient/parent. The event monitor recordings were all completely n ormal, including during the 1 unspecified symptom. Please followup as needed, and continue to take measures to maintain excellent hydration at all times, thanks!!-- Daksha stevens signed by Meena Martinez LPN at 08/13/2016 3:50 PM PDTdocumented in this encounte r Plan of Treatment +--------+ + + + + | Date | Type | Specialty | Care Team | Description | +--------+ + + + + | 09/07/ | Office | Cardiology | Tawana Mcdonald | | | 2019 | Visit | | GLEN [place]ales [address] | | | | | | [address] | | | | | | [place] [address] | | | | | | [phone] | | | | | | | | +--------+ + + + + | 09/22/ | Office | Physical Medicine | Gonzalo Merchant, | | | 2019 | Visit | and Rehabilitation | [address] | | | | | | [place] | | | | | | [address] | | | | | | | | +--------+ + + + + | 09/29/ | Virtual | Pain Medicine | Peggy Arreola | | 2019 | Office | | [address] | | | | Visit | | [address] | | | | | | [place], | | | | | | [place] [address] | | | | | | [phone] | | | | | | | | +--------+ + + + + | 01/24/ | Office | Family Medicine | Kurt Campbell, | | | 2020 | Visit | | DO [address] | | | | | | [place] | | | | | | [address] | | | | | | | | +--------+ + + + + documented as of this encounter Visit Diagnoses Not on filedocumented in this encounter"
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
--- OUTSIDE RECORDS SUMMARY | ~2020-09-05 | XMS | Encounter Summary ---
Demographics + + + | Address | [address] | | | [place] [address] | + + + | Home Phone | | + + + | Preferred Language | Unknown | + + + | Marital Status | Single | + + + | Yazidi Affiliation | 1059 | + + + | Race | Unknown | + + + | Ethnic Group | Not or | + + + Author + + + | Author | [facility] | | | and [place] | + + + | Organization | [facility] | | | and [...] | | | | | [place] [address] | | + + + + + | Concha Paulino | ECON | [address] | | | | | [place] [address] | | + + + + + Care Team Providers + +------+ + | Care Sap Senior Developer Name | Role | Phone | + +------+ + PCP | Unavailable | + +------+ + Encounter Details +--------+ + + + + | Date | Type | Department | Care Team | Description | +--------+ + + + + | 11/25/ | Hospital | [facility] | Eros Swift | | | 2005 | Encounter | MED CTR EMERGENCY | MD Ivan [address] | | | | | [place] | [address] [facility] | | | | | [place], [place] | [place] [address] | | | | | [address] | [phone] | | | | | [phone] | | | +--------+ + + + [...] + + documented as of this encounter Plan of Treatment +--------+ + + + + | Date | Type | Specialty | Care Team | Description | +--------+ + + + + | 09/07/ | Office | Cardiology | Tawana Mcdonald | | | 2019 | Visit | | [address] | | | | | | [place] | | | | | | [place] [address] | | | | | | [phone] | | | | | | | | +--------+ + + + + | 09/22/ | Office | Physical Medicine | Gonzalo Merchant, | | | 2019 | Visit | and Rehabilitation | MD [address] | | | | | | [place] | | | | | | [id number] | | | | | | | | +--------+ + + + + | 09/29/ | Virtual | Pain Medicine | Peggy Arreola | | | 2019 | Office | | [address] | | | | Visit | | [place] | | | | | | [place] | | | | | | [place] [address] | | | | | | [phone] | | | | | | | | +--------+ + + + + | 01/24/ | Office | Family Medicine | Kurt Campbell, | | | 2020 | Visit | | DO [address] | | | | | | [place] | | | | | | [id number] | | | | | | | | +--------+ + + + + documented as of this encounter Visit Diagnoses Not on filedocumented in this encounter"
--- OUTSIDE RECORDS SUMMARY | ~2020-09-05 | XMS | Encounter Summary ---
Demographics + + + | Address | [address] | | | [place] [address] | + + + | Home Phone | | + + + | Preferred Language | Unknown | + + + | Marital Status | Single | + + + | Church Affiliation | 1059 | + + + | Race | Unknown | + + + | Ethnic Group | Not or | + + + Author + + + | Author | [facility] | | | and [place] | + + + | Organization | [facility] | | | [...] | | | | | [place] [address] | | + + + + + | Concha Paulino | ECON | [address] | | | | | [place] [address] | | + + + + + Care Team Providers + +------+ + | Care Blasting Worker Name | Role | Phone | + +------+ + | Leonid Osorio MD | PCP | | + +------+ + Encounter Details +--------+ + + + + | Date | Type | Department | Care Team | Description | +--------+ + + + + | 05/06/ | Emergency | [facility] | Max Guerrero | Left eye pain | | 2015 | | MEDICAL CENTER | MD [address] | | | | | EM[facility]Y CENTER | [place] | | | | | [address] | [place] [address] | | | | | [place], [place] | [phone] | | | | | [address] | | | | | | [phone] | | | +--------+ + + + [...] + + documented as of this encounter Medications at Time of Discharge + + + +---------+ + + | Medication | Sig | Dispensed | Refills | Start | End Date | | | | | | Date | | + + + +---------+ + + | buPROPion | Take 75 mg by mouth | | 0 | | | | (WELLBUTRIN) 75 mg | Daily. | | | | 7 | | tablet | | | | | | + + + +---------+ + + | diphenhydrAMINE | Take 25 mg by mouth | | 0 | | | | (BENADRYL) 25 mg | every 6 hours as | | | | 0 | | tablet | needed for Itching. | | | | | + + + +---------+ + + | fluticasone | 1 spray by Nasal | | 0 | | | | (FLONASE) 50 | route Daily. | | | | 8 | | mcg/nasal spray | | | | | | + + + +---------+ + + | fluticasone | 2 sprays by Nasal | | 0 | | | | (VERAMYST) 27.5 | route Daily. | | | | 5 | | MCG/SPRAY nasal | | | | | | | spray | | | | | | + + + +---------+ + + | ibuprofen (ADVIL, | Take 200 mg by mouth | | 0 | | | | MOTRIN) 200 mg | every 6 hours as | | | | 7 | | tablet | needed. | | | | | + + + +---------+ + + | meclizine | Take 1 tablet by | 15 | 0 | 04/07/20 | | | (ANTIVERT) 25 mg | mouth 3 times daily | tablet | | 15 | 7 | | tabletIndications: | as needed. | | | | | | Labyrinthitis, left | | | | | | + + + +---------+ + + | MELATONIN | 3 mg by Does not | | 0 | | | | | apply route. | | | | 5 | + + + +---------+ + + | montelukast | Take 5 mg by mouth | | 0 | | | | (SINGULAIR) 5 mg | nightly. | | | | 7 | | chewable tablet | | | | | | + + + +---------+ + + | Norgestim-Eth | Take 1 tablet by | | 0 | | | | Estrad Triphasic | mouth Daily. | | | | 5 | | (ORTHO TRI-CYCLEN LO | | | | | | | PO) | | | | | | + + + +---------+ + + | Progesterone | Take 5 mg by mouth. | | 0 | | | | Micronized | | | | | 5 | | (PROGESTERONE PO) | | | | | | + + + +---------+ + + | sertraline | Take 50 mg by mouth | | 0 | | | | (ZOLOFT) 25 mg | Daily. | | | | 5 | | tablet | | | | | | + + + +---------+ + + documented as of this encounter ED Notes Max Guerrero MD - 05/06/2015 10:29 PM PDT ED Provider Notes by Max Guerrero MD at 05/06/152228 Author: Max Guerrero MD Service: Emergency Department Author Type: Physician Filed: 05/08/15 0359 Date of Service: 05/06/152228 Status: Signed Contract Law Specialist: Max Guerrero MD (Physician) [facility] Department of Emergency Medicine 10:29 PM History of Present Illness Patient Identification Renny Saravia is a 15 y.o. female. Patient information was obtained from patient. History/Exam limitations: none. Patient presented to the Emergency Department by: Car Chief Complaint Chief Complaint Patient presents with Eye Pain pain to left eye. onset 2 days ago. The patient complains of L eye pain. Onset of symptoms was 2 days ago, with a constant cour se since that time. The symptoms are described to be moderate. Pt is visiting from [place]. She states she was putting on eye liner a couple days ago and noticed soreness in the eye th at has progressively gotten worse. Pt states she saw her optomotrist 1 week ago in regards t o pain in the R eye, and had some blurred vision that has improved. She was given steroid dr kim, and had an MRI of the eyes. She states that the MRI was inconclusive secondary to her b races interfering with the clarity. Pt states that the steroid drops have improved her sx. Denies vision changes, fever, HOPE, or any other sx at this time. [phone] H/o scoliosis, migraines History reviewed. No pertinent past medical history. History reviewed. No pertinent past surgical history. Prior to Admission medications Not on File Allergies Allergen Reactions Omeprazole Anaphylaxis Aspirin Other (See Comments) Pt stated, "Really high fever" Penicillins Nausea and Vomiting and Rash Sulfa Antibiotics Rash History Social History Marital Status: Single Spouse Name: N/A Number of Children: N/A Years of Education: N/A Occupational History Not on file. Social History Main Topics Smoking status: Never Smoker Smokeless tobacco: Not on file Alcohol Use: No Drug Use: No Sexual Activity: Not on file Other Topics Concern Not on file Social History Narrative No narrative on file History reviewed. No pertinent family history. Review of Systems Constitutional: No fever Eyes: Yes L eye pain ENT: No blindness, no rhinitis, no sore throat Cardiovascular: No chest pain Respiratory: No shortness of breath, cough Gastrointestinal: No abdominal pain, N/V/D, black or bloody stools Genitourinary: No dysuria, hematuria Musculoskeletal: No acute physical injury. Skin: No laceration or rash Neuro and psych: No head injury, seizure, headache Endocrine/Heme/Lymph: No easy bruising or bleeding. Physical Exam BP 127/74 | Pulse 82 | Temp(Src) 98.2 F (36.8 C) (Temporal) | Resp 16 | Wt 51.7 kg (113 lb 15.7 oz) | SpO2 98% Vital Sign interpretation: WNL Pulse Oximetry interpretation: normal General: Alert, in no apparent distress Eyes: Non-icteric ENT: Normal external exam-PERRLA< EOMI Neck: Supple Cardiovascular: Warm and well perfused Respiratory: No respiratory distress Abdomen: Non distended. Extremities: [place] Back: Normal ROM Skin: Color normal Warm and dry No rash Neuro: Alert, no AMS No gross motor/sensory deficits -cranial nerves 2-12 intact Medical Decision Making and Emergency Department Course ED Department Course Pt presents to the ED with complaints of L eye pain. She has recently been started on eye d rop steroids for pain in the R eye. Consider herpes, iritis, conjunctivitis, vs other. 10:38 PM Slit lamp exam. No abrasion, otherwise normal. 10:49 PM [address] case with Dr. Tyson Cabrera, opthalmologist (colleague cotton feeder for Dr. Raines) - He recommends starting her on abx, and to start the already prescribed steroids i n L eye. Dr. Raines will be available to take her call tomorrow. I have updated the pt of all clinical impressions and results from today's encounter. No ma saurav abnormalities have been detected today but sometimes the situation changes and problems not evident now may be evident later. Do not hesitate to return to the ED for re-evaluation if your symptoms worsen or you develop new symptoms. Otherwise follow up with your PCP as d iscussed. All questions have been answered and addressed. Pt is stable and ready for d/c chad e. Records Reviewed Old medical records. Nursing notes. Laboratory Evaluation Results None I personally reviewed the lab results and they have been posted to the chart. Pertinent po sitive and negative findings have been addressed appropriately. Radiology and EKG Evaluation Imaging Results None ED Diagnosis Final diagnosis Left eye pain Disposition: ED Disposition Discharge Condition at discharge: Stable Follow-up Information Follow up With Details Comments Contact [facility] Emergency Department If symptoms worsen [address] [facility] [address] [address] Lamonte Raines Call tomorrow [phone] Manny Gregory MD opthalmologist [address] [facility] [address] Leonid Osorio MD Discharge Medications: Discharge Medication List as of 05/06/2015 11:21 PM START taking these medications Details erythromycin (ROMYCIN) ophthalmic ointment Apply to eye 2 (two) times daily. 0.5 inch, Sta rting 05/06/2015, Until 05/10/15, Print HYDROcodone-acetaminophen (NORCO) 5-325 MG per tablet Take 1 tablet by mouth every 4 (four) hours as needed for Pain., Starting 05/06/2015, Until 6/22/15, Print Procedures Additional Documentation Procedures Attending Note: Documentation assistance provided by Killian Reed (Scribe). Information recorded by the scribe has been reviewed and validated by me. Omari lima with its contents. MD Max Meade MD 05/08/15 0359 documented in thi s encounter Plan of Treatment +--------+ + + + + | Date | Type | Specialty | Care Team | Description | +--------+ + + + + | 09/07/ | Office | Cardiology | Tawana Mcdonald | | | 2019 | Visit | | [address] | | | | | | [address] | | | | | | [place] [address] | | | | | | [phone] | | | | | | | | +--------+ + + + + | 09/22/ | Office | Physical Medicine | Gonzalo Merchant, | | | 2019 | Visit | and Rehabilitation | MD [address] | | | | | | [place] | | | | | | [id number] | | | | | | | | +--------+ + + + + | 09/29/ | Virtual | Pain Medicine | Peggy Arreola | | | 2019 | Office | | [address] | | | | Visit | | [place] | | | | | | [place] [address] [place] | | | | | | [place] [address] | | | | | | [phone] | | | | | | | | +--------+ + + + + | 01/24/ | Office | Family Medicine | Kurt Campbell, | | | 2020 | Visit | | DO [address] | | | | | | [place] | | | | | | [id number] | | | | | | | | +--------+ + + + + documented as of this encounter Visit Diagnoses + + | Diagnosis | + + | Left eye pain Pain in or around eye | + + documented in this encounter
--- OUTSIDE RECORDS SUMMARY | ~2020-09-05 | XMS | Encounter Summary ---
Demographics + + + | Address | [address] | | | [place] [address] | + + + | Home Phone | | + + + | Preferred Language | Unknown | + + + | Marital Status | Single | + + + | Pentecostalism Affiliation | 1059 | + + + | Race | Unknown | + + + | Ethnic Group | Not or | + + + Author + + + | Author | [facility] | | | and [place] | + + + | Organization | [facility] | | [...] | | | | | [place] [address] | | + + + + + | Conhca Paulino | ECON | [address] | | | | | [place] [address] | | + + + + + Care Team Providers + +------+ + | Care Strategic Advisor Name | Role | Phone | + +------+ + | Kurt Campbell DO | PCP | | + +------+ + Reason for Visit + + + | Reason | Comments | + + + | Procedure | | + + + Evaluate & Treat (Routine) +--------+ + + + + + | Status | Reason | Specialty | Diagnoses / | Referred By | Referred To | | | | | Procedures | Contact | Contact | +--------+ + + + + + | Closed | Specialty | Physical | Diagnoses | Mayur, | Gonzalo Merchant | | | Services | Medicine and | Trigger | Gonzalo eWir MD | Raul Weir MD [address] | | | Required | Rehabilitatio | point of | [address] | | | | n | thoracic | [address] | [place], | | | | | region | [place], | [place] [address] | | | | | Adolescent | [place] [address] | Phone: | | | | | idiopathic | Phone: | [phone] | | | | | scoliosis of | [phone] | Fax: | | | | | | Fax: | [phone] | | | | | thoracolumba | [phone] | | | | | | r region | | | | | | | Focal | | | | | | | dystonia | | | | | | | Procedures | | | | | | | OK INJECT | | | | | | | TRIGGER | | | | | | | POINT, 3+ | | | | | | | MUSCLES [place] | | | | | | | LIDOCAINE | | | | | | | INJECTION, | | | | | | | 10 MG DOS | | | | | | | 10/20/19 | | | | | | | Trigger | | | | | | | point | | | | | | | injections | | | +--------+ + + + + + Encounter Details +--------+ + + + + | Date | Type | Department | Care Team | Description | +--------+ + + + + | 11/13/ | Procedure | [facility] | Gonzalo Merchant, | Trigger point of | | 2019 | visit | PHYSIATRY [address] | MD [address] | thoracic region | | | | [address] | [place] | (Primary Dx); | | | | [place] | [address] | Adolescent | | | | [address] | | idiopathic scoliosis | | | | [phone] | | of thoracolumbar | | | | | | region; Focal | | | | | | dystonia | +--------+ + + + + Social [...] +---------+ + + | Blood Pressure | 110/80 | 11/13/2019 12:16 PM | | | | | PST | | + +---------+ + + | Pulse | - | - | | + +---------+ + + | Temperature | - | - | | + +---------+ + + | Respiratory Rate | - | - | | + +---------+ + + | Oxygen Saturation | - [...] of this encounter Patient Instructions Patient Instructions Gonzalo Merchant MD - 11/13/2019 11:20 AM PSTIf you develop any signs of infection (e.g. Fever, chills, redness, warmth, drainage) seek emergent medical attention and inform the clinic. Feel free to use ice, massage, and stretch after your injections to day. Please avoid direct heat, over the injections site, for 3 days following injection. documented in this encounter Progress Notes Gonzalo Merchant MD - 11/13/2019 11:20 AM PSTFormatting of this note might be different fro m the original. Diagnosis: 1. Trigger point of thoracic region 2. Adolescent idiopathic scoliosis of thoracolumbar region 3. Focal dystonia Procedure: Thoracic paraspinal muscle trigger point injections Procedure Detail: Informed consent was obtained. Risk, benefits, and alternative treatmen ts were reviewed. Risks reviewed included but not limited to: bruising, bleeding, infection , damage to adjacent structures, pneumothorax, disability and . The risk of skin disco loration from steroid injection was reviewed. The potential risk of pneumothorax, need for hospitalization, ventilation, and emergent medical care was reviewed. Once informed consent was obtained two 5 ml syringes was/were prepared. Each syringe conta ined 1 ml of DepoMedrol 20 mg/ml, and 4 ml of lidocaine 1%. Each syringe had a total medica tion volume of 5 ml. The trigger points were identified anatomically, with palpation, and reproduction of pain. The skin over each of the trigger points was cleaned with an alcohol swab prior to injectio n. A 25 gauge 1-1/2 inch needle was used for all trigger point injections. The medication was injected evenly between 6 separate trigger points. At each trigger point, once medicat ion was injected, the needle was redirected in a ray-like fashion radiating out from the guy tral insertion point of the needle. The muscles injected today include: Right rhomboid, ri ght lower trapezius, and right levator scapulae muscles. Renny Saravia was discharged from the clinic with the instructions; avoid the use o f heat for the next 3 days. The use of ice and massage is ok. The patient was instructed t hat should they have any alarming signs or symptoms that they should seek emergent medical c are as well as inform me in the clinic. Thank you for allowing me to be involved in the care of your patient. If you have any ques tions regarding the care of your patient please don't hesitate to call. Gonzalo Merchant MD (Jr.) documented in this en counter Plan of [...] | | | | | | [place] [address] | | | | | | [phone] | | | | | | | | +--------+ + + + + | 09/22/ | Office | Physical Medicine | Gonzalo Merchant, | | | 2019 | Visit | and Rehabilitation | [address] | | | | | | [place] | | | | | | [address] | | | | | | | | +--------+ + + + + | 09/29/ | Virtual | Pain Medicine | Peggy Arreola | | 2019 | Office | | [address] | | | | Visit | | [address] [address] | | | | | | [place], | | | | | | [place] [address] | | | | | | [phone] | | | | | | | | +--------+ + + + + | 01/24/ | Office | Family Medicine | Kurt Campbell, | | | 2020 | Visit | | DO [address] | | | | | | [place] | | | | | | [address] | | | | | | | | +--------+ + + + + documented as of this encounter Visit Diagnoses + + | Diagnosis | + + | Trigger point of thoracic region - Primary Backache, unspecified | + + | Adolescent idiopathic scoliosis of thoracolumbar region Scoliosis (and | | kyphoscoliosis), idiopathic | + + | 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 | + + documented in this encounter Administered Medications + + + +-------+------+ + | Medication Order | MAR | Action | Dose | Rate | Site | | | Action | Date | | | | + + + +-------+------+ + | lidocaine 1% injection 8 mL 8 | Given by | 11/13/20 | 8 mLs | | Other | | mL, Intramuscular, ONCE, Fri | Other | 19 12:30 | | | (Comment | | 11/13/19 at 1245, For 1 dose | | PM PST | | | ) | + + + +-------+------+ + +---+---+ | | | +---+---+ + + + +-------+---+ + | methylPREDNISolone acetate | Given by | 11/13/20 | 40 mg | | Other | | (DEPO-MEDROL) 20 mg/mL injection | Other | 19 12:31 | | | (Comment | | 40 mg 40 mg, Intramuscular, | | PM PST | | | ) | | ONCE, 11/13/19 at 1245, For 1 | | | | | | | dose, Not for IV use., | | | | | | + + + +-------+---+ + +---+---+ | | | +---+---+ documented in this encounter"
--- OUTSIDE RECORDS SUMMARY | ~2020-09-05 | XMS | Encounter Summary ---
Demographics + + + | Address | [address] | | | [place] [address] | + + + | Home Phone | | + + + | Preferred Language | Unknown | + + + | Marital Status | Single | + + + | Taoism Affiliation | 1059 | + + + | Race | Unknown | + + + | Ethnic Group | Not or | + + + Author + + + | Author | [facility] | | | and [place] | + + + | Organization | [facility] | | | and [...] | | | | | [place] [address] | | + + + + + | Concha Paulino | ECON | [address] | | | | | [place] [address] | | + + + + + Care Team Providers + +------+ + | Care Dull Coat Mill Operator Name | Role | Phone | + +------+ + | Kurt Campbell DO | PCP | | + +------+ + Reason for Visit + +--------+ + | Reason | Onset | Comments | | | Date | | + +--------+ + | Referral (Follow up) | 12/10/ | | | | 2020 | | + +--------+ + Encounter Details +--------+ + + + + | Date | Type | Department | Care Team | Description | +--------+ + + + + | 12/10/ | Telephone | [facility] | Kurt Campbell, | Referral (Follow up) | | 2019 | | MEDIC[facility] | DO [address] | | | | | [address] | [place] | | | | | [place] | [address] | | | | | [address] | | | | | | [phone] | | | +--------+ + + + [...] + + documented as of this encounter Functional Status + + + [...] this encounter Miscellaneous Notes Telephone Encounter - Miya Jolly, Appli[place] - 12/10/2019 4:46 PM PSTSee ot er encounter elephone Encounter - Miya Jolly, [place]li[place] - 12/10/2019 4:45 PM PST- ---- Message from Rama Castañeda sent at 12/10/2019 2:45 PM PST ----- Regarding: [facility] - NEW CARDIOLOGY REFERRAL NEEDED This is an established Dr. Coronel cardiology patient that has a follow-up appointment sched uled on 12-17-19 and needs a new cardiology referral. Please have your provider create a new order for a cardiology referral using the following diagnosis: I47.1 - R00.0 - R00.2 Thank you. Nicole mented in this encounter Plan of Treatment +--------+ + + + + | Date | Type | Specialty | Care Team | Description | +--------+ + + + + | 09/07/ | Office | Cardiology | Tawana Mcdonald | | | 2019 | Visit | | [address] | | | | | | [place] | | | | | | [place] [address] | | | | | | [phone] | | | | | | | | +--------+ + + + + | 09/22/ | Office | Physical Medicine | Gonzalo Merchant, | | 2019 | Visit | and Rehabilitation | MD [address] | | | | | | [place] | | | | | | [address] | | | | | | | | +--------+ + + + + | 09/29/ | Virtual | Pain Medicine | Peggy Arreola | | | 2019 | Office | | [address] | | | | Visit | | [address] [address] | | | | | | [place], | | | | | | [place] [address] | | | | | | [phone] | | | | | | | | +--------+ + + + + | 01/24/ | Office | Family Medicine | Kurt Campbell, | | | 2020 | Visit | | DO [address] | | | | | | [place] | | | | | | [id number] | | | | | | | | +--------+ + + + + documented as of this encounter Visit Diagnoses Not on filedocumented in this encounter"
--- OUTSIDE RECORDS SUMMARY | ~2020-09-05 | XMS | Encounter Summary ---
Demographics + + + | Address | [address] [facility] [address] [facility] | | | [place] [address] | + + + | Home Phone | | + + + | Preferred Language | Unknown | + + + | Marital Status | Single | + + + | Spiritism Affiliation | [id number] | + + + | Race | Unknown | + + + | Ethnic Group | Not or | + + + Author + + + | Author | [facility] | | | and [place] | + + + | Organization | [facility] | | | and [...] | | | | | [place] [address] | | + + + + + | Concha Zeeshanletty | ECON | [address] | | | | | [place] [address] | | + + + + + Care Team Providers + +------+ + | Care Vp Packaging Name | Role | Phone | + +------+ + | Kurt Campbell DO | PCP | | + +------+ + Reason for Referral Diagnostic/Screening (Routine) +--------+--------+ + + + + | Status | Reason | Specialty | Diagnoses / | Referred By | Referred To | | | | | Procedures | Contact | Contact | +--------+--------+ + + + + | Closed | | Radiology | Diagnoses | Maxood, | [facility] | | | | | SVT | Haresh | [address] | | | | | (supraventri | MD William | [place], | | | | | cular | [address] | [place] | | | | | tachycardia) | [place] | [address] | | | | | (HCC) | [place], [place] | Phone: | | | | | Procedures | [id number] | [phone] | | | | | ECHO | Phone: | Fax: | | | | | [facility] [place] | [phone] | [phone] | | | | | ECHO HEART | Fax: | | | | | | [place] | [phone] | | | | | | MPLETE, W/O | | | | | | | DOPPLER | | | +--------+--------+ + + + + Reason for Visit Diagnostic/Screening (Routine) +--------+--------+ + + + + | Status | Reason | Specialty | Diagnoses / | Referred By | Referred To | | | | | Procedures | Contact | Contact | +--------+--------+ + + + + | Closed | | Radiology | Diagnoses | Maxood, | [facility] | | | | | SVT | Hraesh | [address] | | | | | (supraventri | MD William | [place], | | | | | cular | [address] | [place] | | | | | tachycardia) | [place] | [address] | | | | | (HCC) | [place], [place] | Phone: | | | | | Procedures | [id number] | [phone] | | | | | ECHO | Phone: | Fax: | | | | | [facility] [place] | [phone] | [phone] | | | | | ECHO HEART | Fax: | | | | | | [place] | [phone] | | | | | | MPLETE, W/O | | | | | | | DOPPLER | | | +--------+--------+ + + + + Encounter Details +--------+ + + + + | Date | Type | Department | Care Team | Description | +--------+ + + + + | 04/14/ | Hospital | [facility] | Haresh Coronel | SVT | | 2019 | Encounter | [facility] ECHO [address] | MD William [address] | (supraventricular | | | | [address] [place] | [address] [place] | tachycardia) (HCC) | | | | [place] [address] | [place] [address] | | | | | [phone] | [phone] | | | | | | | [...] Comments: vaping right now 3 mg nicotine daily | + + + + +---------+ + [...] + + + +---------+ + + | acetaminophen | Take 650 mg by mouth | | 0 | | | | (TYLENOL) 325 mg | every 4 hours as | | | | | | tablet | needed for Pain. | | | | | + + + +---------+ + + | albuterol (PROAIR | Inhale 2 puffs into | 18 g | 0 | 03/02/20 | | | HFA) 90 mcg/puff | the lungs every 6 | | | 19 | 9 | | inhalerIndications: | hours as needed for | | | | | | Mild persistent | Wheezing or | | | | | | asthma without | Shortness of Breath. | | | | | | complication | | | | | | + + + +---------+ + + | albuterol 2.5 mg/3 | Take 3 mLs by | 60 vial | 0 | 03/02/20 | | | mL nebulizer | nebulization every 4 | | | 19 | 0 | | solutionIndications: | hours as needed for | | | | | | Mild persistent | Wheezing or | | | | | | asthma without | Shortness of Breath. | | | | | | complication | | | | | | + [...] EPINEPHrine | Inject 0.3 mLs into | 2 each | 1 | 03/02/20 | | | auto-injector 0.3 | the muscle as needed | | | 19 | 0 | | mg/0.3 mL | for Anaphylaxis. | | | | | | injectionIndications | | | | | | | : Allergic reaction | | | | | | | to drug, subsequent | | | | | | | encounter | | | | | | + + + +---------+ + + | FLOVENT HFA 44 | Inhale 2 puffs into | 3 | 3 | 03/02/20 | | | MCG/ACT | the lungs Daily. | Inhaler | | 19 | 9 | | inhalerIndications: | | | | | | | Mild intermittent | | | | | | | asthma without | | | | | | | complication | | | | | | + + + +---------+ + + | ibuprofen (ADVIL, | Take 400 mg by mouth | | 0 | | | | MOTRIN) 200 mg | every 6 hours as | | | | 9 | | tablet | needed for Pain. | | | | | + + + +---------+ + + | MISC NATURAL | Take by mouth. | | 0 | | | | PRODUCTS PO | Parris's Mints. | | | | 0 | | | Natural CBD 5-10 mg | | | | | | | as needed for | | | | | | | headaches | | | | | + + + +---------+ + + | ondansetron | as needed. | | 0 | 04/08/20 | | | (KANDIS SULLIVAN) 4 mg | | | | 19 | 0 | | disintegrating | | | | | | | tablet | | | | | | + + + +---------+ + + | Pyridoxine HCl | Take 25 mg by mouth | | 0 | 04/08/20 | | | (VITAMIN B-6) 25 MG | every 8 hours. | | | 19 | 9 | | tablet | | | | | | + + + +---------+ + + | sertraline | Take 1 tablet by | 30 | 2 | 04/01/20 | | | (ZOLOFT) 50 mg | mouth Daily. | tablet | | 19 | 9 | | tabletIndications: | | | | | | | Depression, | | | | | | | unspecified | | | | | | | depression type, | | | | | | | Anxiety | | | | | | + + + +---------+ + + | traZODone | Take 50 mg by mouth | | 0 | 03/30/20 | | | (DESYREL) 50 mg | as needed. | | | 19 | 0 | | tablet | | | | [...] | | | | | | [place] [address] | | | | | | [phone] | | | | | | | | +--------+ + + + + | 09/22/ | Office | Physical Medicine | Gonzalo Merchant, | | | 2019 | Visit | and Rehabilitation | MD [address] | | | | | | [place], [place] | | | | | | [address] | | | | | | | | +--------+ + + + + | 09/29/ | Virtual | Pain Medicine | Peggy Arreola | | 2019 | Office | | [address] | | | | Visit | | [place] | | | | | | [place], | | | | | | [place] [address] | | | | | | [phone] | | | | | | | | +--------+ + + + + | 01/24/ | Office | Family Medicine | Kurt Campbell [place], | | | 2020 | Visit | | DO [address] | | | | | | [place] | | | | | | [address] | | | | | | | | +--------+ + + + + documented as of this encounter Procedures + +--------+ + + + | Procedure Name | Priori | Date/Time | Associated Diagnosis | Comments | | | ty | | | | + +--------+ + + + | ECHO COMPLETE | Routin | 04/14/2019 | SVT | Results for this | | | e | 1:54 PM | (supraventricular | procedure are in the | | | | PDT | tachycardia) ([facility]) | results section. | + +--------+ + + + documented in this encounter Results ECHO Complete (04/14/2019 1:54 PM PDT) + +--------+ + + + | Component | Value | Ref Range | Performed | Pathologist | | | | | At | Signature | + +--------+ + + + | Patient | 103 | | [facility] | | | Weight | | | | | | (lbs) | | | | | + +--------+ + + + | Patient | 5'3" | | [facility] | | | Height | | | | | + +--------+ + + + | LVIDd | 4.71 | cm | [facility] | | + +--------+ + + + | FS | 41 | % | [facility] | | + +--------+ + + + | LA volume | 20.06 | mL | [facility] | | + +--------+ + + + | Ascending | 2.55 | cm | [facility] | | | aorta | | | | | + +--------+ + + + | Aortic arch | 2.48 | cm | [facility] | | + +--------+ + + + | AV mean | 2.72 | mmHg | [facility] | | | gradient | | | | | + +--------+ + + + | MV Area by | 2.98 | cm2 | [facility] | | | P 1/2 | | | | | | method | | | | | + +--------+ + + + | IVRT | 103.6 | msec | [facility] | | + +--------+ + + + | LVOT peak | 86.53 | cm/s | [facility] | | | navin | | | | | + +--------+ + + + | LVOT peak | 16.31 | cm | [facility] | | | VTI | | | | | + +--------+ + + + | AV peak navin | 114 | cm/s | [facility] | | + +--------+ + + + | AV VTI | 17.97 | cm | [facility] | | + +--------+ + + + | AV peak | 5.2 | mmHg | [facility] | | | gradient | | | | | + +--------+ + + + | MV Pressure | 73.91 | msec | [facility] | | | 1/2 time | | | | | + +--------+ + + + | LA Volume | 14 | mL/m2 | [facility] | | | Index | | | | | + +--------+ + + + | AV LVOT | 3 | mmHg | [facility] | | | Peak | | | | | | Gradient | | | | | + +--------+ + + + | AV LVOT | 1.82 | mmHg | [facility] | | | Mean | | | | | | Gradient | | | | | + +--------+ + + + | TR Peak | 12 | mmHg | [facility] | | | Gradient | | | | | + +--------+ + + + | TR Velocity | 173.07 | cm | [facility] | | + +--------+ + + + | LV | 7.05 | cm | [facility] | | | Diastolic | | | | | | Length 4C | | | | | + +--------+ + + + | LV Systolic | 15.34 | cm2 | [facility] | | | Area PSAX | | | | | + +--------+ + + + | LV | 70 | % | [facility] | | | Miranda's | | | | | | Biplane EF | | | | | + +--------+ + + + | AV | 78.73 | msec | [facility] | | | Acceleratio | | | | | | n Time | | | | | + +--------+ + + + | LV ED | 61.85 | ml | [facility] | | | Volume | | | | | | (Miranda's) | | | | | + +--------+ + + + | LV ED | 42 | ml/m2 | [facility] | | | Volume | | | | | | Index | | | | | + +--------+ + + + | LV ES | 28.97 | ml | [facility] | | | Volume | | | | | + +--------+ + + + | LVOT Mean | 64.51 | cm/s | [facility] | | | Velocity | | | | | + +--------+ + + + | MV A' | 6.94 | cm/s | [facility] | | | Lateral | | | | | | Velocity | | | | | + +--------+ + + + | MV E' | 14.86 | cm/s | [facility] | | | Lateral | | | | | | Velocity | | | | | + +--------+ + + + | MV A' | 10.07 | cm/s | [facility] | | | Septal | | | | | | Velocity | | | | | + +--------+ + + + | MV E' | 11.54 | cm/s | [facility] | | | Septal | | | | | | Velocity | | | | | + +--------+ + + + | MV | 187.22 | cm/s2 | [facility] | | | Deceleratio | | | | | | n Price | | | | | + +--------+ + + + | MV | 254.87 | msec | [facility] | | | Deceleratio | | | | | | n Time | | | | | + +--------+ + + + | MV E/A | 0.84 | | [facility] | | | Ratio | | | | | + +--------+ + + + | MV Peak | 57.49 | cm/s | [facility] | | | A-Wave | | | | | + +--------+ + + + | MV Peak | 48.11 | cm/s | [facility] | | | E-Wave | | | | | + +--------+ + + + | AV Mean | 78.83 | cm/s | [facility] | | | Velocity | | | | | + +--------+ + + + | LA/Aorta | 0.88 | | [facility] | | | Ratio | | | | | + +--------+ + + + | LA Area | 9.72 | cm2 | [facility] | | + +--------+ + + + | LA Systolic | 6.05 | mmHg | [facility] | | | Pressure | | | | | + +--------+ + + + | MV E/E | 4.17 | | [facility] | | | SEPTAL | | | | | + +--------+ + + + | MV E/E | 3.24 | | [facility] | | | LATERAL | | | | | + +--------+ + + + | LA Major | 0.1797 | cm | [facility] | | + +--------+ + + + | LV ES | 20 | ml/m2 | [facility] | | | Volume | | | | | | Index | | | | | + +--------+ + + + | LV Area | 22.77 | cm2 | [facility] | | | Diastolic | | | | | + +--------+ + + + | Aortic Root | 2.66 | cm | [facility] | | | Diameter | | | | | + +--------+ + + + | IVS | 0.58 | cm | [facility] | | | Diastolic | | | | | | Thickness | | | | | | MM | | | | | + +--------+ + + + | LVPW | 0.58 | cm | [facility] | | | Diastolic | | | | | | Thickness | | | | | | MM | | | | | + +--------+ + + + | IVS | 0.95 | cm | [facility] | | | Systolic | | | | | | Thickness | | | | | | MM | | | | | + +--------+ + + + | LV Systolic | 2.77 | cm | [facility] | | | Diameter | | | | | | MM | | | | | + +--------+ + + + | LVPW | 1.39 | cm | [facility] | | | Systolic | | | | | | Thickness | | | | | | MM | | | | | + +--------+ + + + | AV Cusp | 2.02 | cm | [facility] | | | Seperation | | | | | | MM | | | | | + +--------+ + + + | LA Systolic | 2.34 | cm | [facility] | | | Diameter | | | | | | MM | | | | | + +--------+ + + + | TAPSE | 2.0 | cm | [facility] | | + +--------+ + + + | LVEF-TTE | 70 | | [facility] | | | TRANSTHORAC | | | | | | IC ECHO | | | | | + +--------+ + + + + + | Specimen | + + | | + + + + --+ | Narrative | Performed At | + + --+ | Transthoracic | [facility] | | Echocardiography Report (TTE) Demographics Patient Name MELODY | | | RENNY Room Number ASHLY Patient Number | | | [id number] Date of Study 04/14/2019 Visit | | | Number [id number] | | | Referring Physician WILLIAM CORONEL MD Number Date of | | | 2000 [employer] App[employer] NORY FERMIN | | | Age 19 year(s) Interpreting | | | WILLIAM CORONEL MD | | | Hall Director Gender Female Nurse | | | Stress 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 Procedure | | | dateDate: 04/14/2019Start: 12:58 PM Technical Quality: Adequate | | | visualizationStudy Location: Echo Lab Patient Status: RoutineHeight: | | | 63 inchesWeight: 103 poundsBSA: 1.46 m^2BMI: 18.25 kg/m^2Rhythm: | | | Normal Sinus RhythmHR: 67 bpm ConclusionsSummaryLeft ventricle is | | | normal in size and function. Ejection fraction isestimated at | | | 65-70%.Diastolic parameters are within normal limits.Structurally | | | normal tricuspid valve with trace insufficiency and peakvelocity | | | consistent with normal pulmonary pressures. | | | Signature | | | | | | PM | | | -------- FindingsMitral ValveStructurally normal mitral valve without | | | significant stenosis orregurgitation.Aortic ValveAortic valve is | | | trileaflet without significant stenosis or regurgitation.Tricuspid | | | ValveStructurally normal tricuspid valve with trace insufficiency and | | | peakvelocity consistent with normal pulmonary pressures.Pulmonic | | | ValveNormal pulmonic valve structure and function. Normal pulmonary | | | valve andRVOT flow by color and Doppler flow imaging.Left AtriumNormal | | | size left atrium.Left VentricleLeft ventricle is normal in size and | | | function. Ejection fraction isestimated at 65-70%.Diastolic parameters | | | are within normal limits.Right AtriumNormal right atrial size.Right | | | VentricleNormal right ventricular size.Right ventricle global systolic | | | function is normal.TAPSE = 2 cm.Pericardial EffusionNo evidence of | | | pericardial effusion.Pleural EffusionNo evidence of pleural | | | effusion.MiscellaneousAortic root is normal.IVC is normal. Valves | | | Mitral Valve Peak E-Wave: 48.11 cm/s Peak A-Wave: 57.49 cm/s Tissue | | | Doppler Septal e' Velocity: 11.54 cm/s Lateral e' Velocity: | | | 14.86 cm/s Septal E/e' Ratio: Lateral E/e' | | | Ratio:3.24 Aortic Valve Peak Velocity: 114 cm/s | | | Mean Gradient: 2.72 mmHg Peak Gradient: 5.2 mmHg Tricuspid Valve | | | TR Velocity: 173.07 cm/s LVOT Peak Velocity: 86.53 cm/s Structures | | | Left Atrium LA A/P Dimension: 2.34 cm LA | | | Area: 9.72 cm^2 LA/Aorta:0.88 | | | LA Volume: 20.06 ml LA Vol/BSA Index: 14 mL/m^2 LA Major:0.1797 | | | Left Ventricle Diastolic Dimension: 4.71 cm Systolic | | | Dimension: 2.77 cm Septum Diastolic: 0.58 cm PW Diastolic: 0.58 cm EF | | | [id number]% EF Calculated: 70% Miscellaneous Aorta Aortic Root: | | | 2.66 cm Ascending Aorta: 2.55 cm | | | | | |Findings | | |Mitral Valve | | |Structurally normal mitral valve without significant stenosis or | | |regurgitation. | | |Aortic Valve | | |Aortic valve is trileaflet without significant stenosis or regurgitation. | | |Tricuspid Valve | | |Structurally normal tricuspid valve with trace insufficiency and peak | | |velocity consistent with normal pulmonary pressures. | | |Pulmonic Valve | | |Normal pulmonic valve structure and function. Normal pulmonary valve and | | |RVOT flow by color and Doppler flow imaging. | | |Left Atrium | | |Normal size left atrium. | | |Left Ventricle | | |Left ventricle is normal in size and function. Ejection fraction is | | |estimated at 65-70%. | | |Diastolic parameters are within normal limits. | | |Right Atrium | | |Normal right atrial size. | | |Right Ventricle | | |Normal right ventricular size. | | |Right ventricle global systolic function is normal. | | |TAPSE = 2 cm. | | |Pericardial Effusion | | |No evidence of pericardial effusion. | | |Pleural Effusion | | |No evidence of pleural effusion. | | |Miscellaneous | | |Aortic root is normal. | | |IVC is normal. | | | | | |Valves | | | | | | Mitral Valve | | | | | | Peak E-Wave: 48.11 cm/s | | | Peak A-Wave: 57.49 cm/s | | | | | | Tissue Doppler | | | | | | Septal e' Velocity: 11.54 cm/s Lateral e' Velocity: 14.86 cm/s | | | Septal E/e' Ratio: Lateral E/e' Ratio:3.24 | | | | | | Aortic Valve | | | | | | Peak Velocity: 114 cm/s Mean Gradient: 2.72 mmHg | | | Peak Gradient: 5.2 mmHg | | | | | | Tricuspid Valve | | | | | | TR Velocity: 173.07 cm/s | | | | | | LVOT | | | | | | Peak Velocity: 86.53 cm/s | | | | | |Structures | | | | | | Left Atrium | | | | | | LA A/P Dimension: 2.34 cm LA Area: 9.72 cm^2 | | | LA/Aorta:0.88 LA Volume: 20.06 ml | | | LA Vol/BSA Index: 14 mL/m^2 | | | LA Major:0.1797 | | | | | | Left Ventricle | | | | | | Diastolic Dimension: 4.71 cm Systolic Dimension: 2.77 cm | | | Septum Diastolic: 0.58 cm | | | PW Diastolic: 0.58 cm | | | EF Ouzqfcyuv95% | | | EF Calculated: 70% | | | | | | Miscellaneous | | | | | | Aorta | | | | | | Aortic Root: 2.66 cm | | | Ascending Aorta: 2.55 cm | | | | | + + --+ + + | Procedure Note | + + | Shaun, Rad Results In - 04/14/2019 5:56 PM PDT Transthoracic Echocardiography Report | | (TTE) Demographics Patient Name MELODY MOORE Room Number ASHLY | | Patient Number [id number] Date of Study 04/14/2019 Visit Number | | [id number] Referring Physician WILLIAM CORONEL MD | | Number 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 Ejection fraction isestimated at | | 65-70%.Diastolic parameters are within normal limits.Structurally normal tricuspid valve | | with trace insufficiency and peakvelocity consistent with normal pulmonary | | pressures.Signature | | ------- | | 05:55 | | PM FindingsMi | | tral ValveStructurally normal mitral valve without significant stenosis | | orregurgitation.Aortic ValveAortic valve is trileaflet without significant stenosis or | | regurgitation.Tricuspid ValveStructurally normal tricuspid valve with trace | | insufficiency and peakvelocity consistent with normal pulmonary pressures.Pulmonic | | ValveNormal pulmonic valve structure and function. Normal pulmonary valve andRVOT flow | | by color and Doppler flow imaging.Left AtriumNormal size left atrium.Left VentricleLeft | | ventricle is normal in size and function. Ejection fraction isestimated at | | 65-70%.Diastolic parameters are within normal limits.Right AtriumNormal right atrial | | size.Right VentricleNormal right ventricular size.Right ventricle global systolic | | function is normal.TAPSE = 2 cm.Pericardial EffusionNo evidence of pericardial | | effusion.Pleural EffusionNo evidence of pleural effusion.MiscellaneousAortic root is | | normal.IVC is normal.Valves Mitral Valve Peak E-Wave: 48.11 cm/s Peak A-Wave: 57.49 cm/s | | Tissue Doppler Septal e' Velocity: 11.54 cm/s Lateral e' Velocity: 14.86 cm/s | | Septal E/e' Ratio: Lateral E/e' Ratio:3.24 Aortic Valve Peak Velocity: | | 114 cm/s Mean Gradient: 2.72 mmHg Peak Gradient: 5.2 mmHg Tricuspid Valve TR | | Velocity: 173.07 cm/s LVOT Peak Velocity: 86.53 cm/sStructures Left Atrium LA A/P | | Dimension: 2.34 cm LA Area: 9.72 cm^2 LA/Aorta:0.88 | | LA Volume: 20.06 ml LA Vol/BSA Index: 14 mL/m^2 LA Major:0.1797 Left Ventricle | | Diastolic Dimension: 4.71 cm Systolic Dimension: 2.77 cm Septum Diastolic: 0.58 | | cm PW Diastolic: 0.58 cm EF Leewfuzhk80% EF Calculated: 70% Miscellaneous Aorta Aortic | | Root: 2.66 cm Ascending Aorta: 2.55 cm | |Summary | |Left ventricle is normal in size and function. Ejection fraction is | |estimated at 65-70%. | |Diastolic parameters are within normal limits. | |Structurally normal tricuspid valve with trace insufficiency and peak | |velocity consistent with normal pulmonary pressures. | | | |Signature | | | | Electronically signed by WILLIAM CORONEL MD(Interpreting physician) on | | 04/14/2019 05:55 PM | | | | | |Findings | |Mitral Valve | |Structurally normal mitral valve without significant stenosis or | |regurgitation. | |Aortic Valve | |Aortic valve is trileaflet without significant stenosis or regurgitation. | |Tricuspid Valve | |Structurally normal tricuspid valve with trace insufficiency and peak | |velocity consistent with normal pulmonary pressures. | |Pulmonic Valve | |Normal pulmonic valve structure and function. Normal pulmonary valve and | |RVOT flow by color and Doppler flow imaging. | |Left Atrium | |Normal size left atrium. | |Left Ventricle | |Left ventricle is normal in size and function. Ejection fraction is | |estimated at 65-70%. | |Diastolic parameters are within normal limits. | |Right Atrium | |Normal right atrial size. | |Right Ventricle | |Normal right ventricular size. | |Right ventricle global systolic function is normal. | |TAPSE = 2 cm. | |Pericardial Effusion | |No evidence of pericardial effusion. | |Pleural Effusion | |No evidence of pleural effusion. | |Miscellaneous | |Aortic root is normal. | |IVC is normal. | | | |Valves | | | | Mitral Valve | | | | Peak E-Wave: 48.11 cm/s | | Peak A-Wave: 57.49 cm/s | | | | Tissue Doppler | | | | Septal e' Velocity: 11.54 cm/s Lateral e' Velocity: 14.86 cm/s | | Septal E/e' Ratio: Lateral E/e' Ratio:3.24 | | | | Aortic Valve | | | | Peak Velocity: 114 cm/s Mean Gradient: 2.72 mmHg | | Peak Gradient: 5.2 mmHg | | | | Tricuspid Valve | | | | TR Velocity: 173.07 cm/s | | | | LVOT | | | | Peak Velocity: 86.53 cm/s | | | |Structures | | | | Left Atrium | | | | LA A/P Dimension: 2.34 cm LA Area: 9.72 cm^2 | | LA/Aorta:0.88 LA Volume: 20.06 ml | | LA Vol/BSA Index: 14 mL/m^2 | | LA Major:0.1797 | | | | Left Ventricle | | | | Diastolic Dimension: 4.71 cm Systolic Dimension: 2.77 cm | | Septum Diastolic: 0.58 cm | | PW Diastolic: 0.58 cm | | EF Jzcyqpivy56% | | EF Calculated: 70% | | | | Miscellaneous | | | | Aorta | | | | Aortic Root: 2.66 cm | | Ascending Aorta: 2.55 cm | + + + +---------+ + + | Performing | Address | City/State/Zipcode | Phone Number | | Organization | | | | + +---------+ + + | [facility] | | | | + +---------+ + + documented in this encounter Visit Diagnoses + + | Diagnosis | + + | SVT (supraventricular tachycardia) (HCC) Other specified cardiac dysrhythmias | + + documented in this encounter
--- OUTSIDE RECORDS SUMMARY | ~2020-09-05 | XMS | Encounter Summary ---
Demographics + + + | Address | [address] | | | [place] [address] | + + + | Home Phone [...] Author + + + | Author | Merged With [facility] | | | and [place] | + + + | Organization | Merged With [facility] | | | [...] | | | | | [place] [address] | | + + + + + | Concha Paulino | ECON | [address] | | | | | [place] [address] | | + + + + + Care Team Providers + +------+ + | Care Relay Adjuster Name | Role | Phone | + +------+ + | Kurt Campbell DO | PCP | | + +------+ + Reason for Visit + + + | Reason | Comments | + + + | Anxiety | | + + + | Depression | | + + + Encounter Details +--------+---------+ + + + | Date | Type | Department | Care Team | Description | +--------+---------+ + + + | 06/22/ | Office | [facility] | Rocio Maldonado, | Depression, | | 2020 | Visit | [facility] | PharmD [address] | unspecified | | | | [address] | [facility], | depression type | | | | [place], [place] | [place] [address] | (Primary Dx); | | | | [address] | [phone] | Anxiety | | | | [phone] | | | +--------+---------+ + + + [...] + + documented as of this encounter Progress Notes Rocio Maldonado PharmD - 06/22/2020 9:45 AM PDTFormatting of this note might be different f rom the original. [facility] Services Visit Genesight Testing Review Provider: Rocio Maldonado PharmD Visit Date: 06/22/2020 Patient: Renny Wadejuan manuel : 2000 CSN: [id number] OBJECTIVE LABORATORY FINDINGS Lab Results Component Value Date CREA 0.76 04/05/2020 BUN 8 (L) 04/05/2020 NA 140 04/05/2020 K 3.5 04/05/2020 CL 107 04/05/2020 CO2 28 04/05/2020 SUBJECTIVE Chief Complaint: I had the pleasure of seeing your patient, Renny Saravia, in the [facility] to review recent GenesStorie lab results. History of Present Illness: Renny Saravia is a 20 y.o. female who returns to [facility] to review their genesight test results and discuss further treatmen t options. Patient has tried and failed: sertraline, Effexor Patient is currently taking fluoxetine 20 mg daily, bupropion 150 mg daily. She was taking trazodone as needed for sleep, but has not taken this in over a month. Past Family and Social History (PFSH): Renny reports that she quit smoking about 3 years ago. She has a 3.00 pack-year smoking hi story. She uses smokeless tobacco. She reports previous alcohol use of about 5.[address] inks of alcohol per week. She reports previous drug use. Drug: Marijuana. Outpatient Medications acetaminophen (TYLENOL) 325 mg tablet Take 650 mg by mouth every 4 hours as needed for Loy n. albuterol (PROAIR HFA) 90 mcg/puff inhaler Inhale 2 puffs into the lungs every 6 hours as needed for Wheezing or Shortness of Breath. albuterol 2.5 mg/3 mL nebulizer solution Take 3 mLs by nebulization every 4 hours as neede d for Wheezing or Shortness of Breath. buPROPion (WELLBUTRIN XL) 300 mg 24 hr tablet Take 1 tablet by mouth Daily. cyclobenzaprine (FLEXERIL) 10 mg tablet Take 1 tablet by mouth 3 times daily as needed for Muscle spasms. diphenhydrAMINE (BENADRYL) 25 mg tablet Take 25 mg by mouth every 6 hours as needed for It angelito. EPINEPHrine auto-injector 0.3 mg/0.3 mL injection Inject 0.3 mLs into the muscle as needed for Anaphylaxis. FLOVENT HFA 44 MCG/ACT inhaler Inhale 2 puffs into the lungs Daily. FLUoxetine (PROZAC) 20 mg capsule Take 1 capsule by mouth Daily. fluticasone (FLONASE) 50 mcg/nasal spray 2 sprays by Nasal route Daily. Loratadine (CLARITIN) 10 MG CAPS Take 1 capsule by mouth as needed. meclizine (ANTIVERT) 25 mg tablet take 1 to 2 tablets by mouth if needed for VERTIGO MISC NATURAL PRODUCTS PO Take by mouth. Parris's Mints. Natural CBD 5-10 mg as needed for h eadaches norgestimate-ethinyl estradiol (ORTHO TRI-CYCLEN LO) 0.18/0.215/0.25 mg-25 mcg TABS ondansetron (ZOFRAN ODT) 4 mg disintegrating tablet Take 1 tablet by mouth every 6 hours a s needed for Nausea. raNITIdine (ZANTAC) 150 MG capsule Take 1 capsule by mouth 2 times daily. traZODone (DESYREL) 50 mg tablet Take 50 mg by mouth as needed. Patient Active Problem List Diagnosis CONTUSION OF TOE Migraine Adolescent idiopathic scoliosis of thoracolumbar region Palpitation Second hand smoke exposure Family history of colon cancer in father Depression Mild intermittent asthma Scoliosis of thoracic spine Pityriasis rosea Abdominal pain Adverse food reaction Allergic rhinitis Anaphylaxis Blood in stool History of pneumonia Chest pain Tachycardia OCD (obsessive compulsive disorder) and not yet delivered in first trimester SVT (supraventricular tachycardia) Special screening for malignant neoplasms, colon Family hx of colon cancer Anxiety PHQ9 SCORE Office Visit from 06/01/2020 in [facility] Office Visit from 2018 in [facility] Office Visit from 04/01/2019 in [facility] Office Visit from 03/02/2019 in [facility] PHQ-9 Total Score (Patient Health Questionnaire) 17 6 16 19 ANXIETY/STRESS SCORE Office Visit from 06/01/2020 in [facility] Office Visit from 2018 in [facility] Office Visit from 04/01/2019 in [facility] Office Visit from 03/02/2019 in [facility] MARIE-7 Score (General Anxiety Disorder) 19 11 21 20 ASSESSMENT Renny is a 20 y.o. y/o, female. They were referred to me for [facility] test results review and education. Discussed patient's current medications. When she started taking fluoxetine, the first few days she couldn't sleep. She was taking f luoxetine 20 mg nightly, but has since switched to morning dosing. Now says her insomnia is "here and there." States her appetite has noticably decreased since starting fluoxetine. She will get the sha kes as if she needs to eat but not be interested in eating, or nothing sounds good. Renny's Genesight results indicate: Fluoxetine is listed as having significant Gene-drug interactions. Patient's metabolism may lead to higher than normal serum concentrations, and use of fluoxetine may increase risk fo r side effects. Renny should have normal response and sensitivity to SSRI medication therapy. Majority of her pharmacokinetic genes were shown to have normal metabolism, except for CYP2 C9, which has poor metabolic function; and [id number], which has intermediate (reduced) functio n. Patient was shown to have significantly reduced folic acid conversion. This has been associ ated with significantly reduced folic acid metabolism, significantly decreased serum folate levels, and significantly increased homocysteine levels. PLAN Genesight test results reviewed with patient today in detail. Based on discussion with kati ent and given results, I recommend switching from fluoxetine to escitalopram 20 mg 10-20 mg daily. 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 Thank you for the opportunity to participate in the care of this patient. Rocio Maldonado, MalikaD Referring/Supervising Provider: Kurt Campbell DO Spent 30 minutes in [id number] time with patient, with greater than 50% of time spent in counseling and discussion of the above mentioned problems and education. documented in this encounter Plan of Treatment [...] | | | | | [place] [address] | | | | | | [phone] | | | | | | | | +--------+ + + + + | 09/22/ | Office | Physical Medicine | Gonzalo Merchant, | | | 2019 | Visit | and Rehabilitation | MD [address] | | | | | | [place] | | | | | | [address] | | | | | | | | +--------+ + + + + | 09/29/ | Virtual | Pain Medicine | Peggy Arreola | | | 2019 | Office | | [address] | | | | Visit | | [place] | | | | | | [place], | | | | | | [place] [address] | | | | | | [phone] | | | | | | | | +--------+ + + + + | 01/24/ | Office | Family Medicine | Kurt Campbell, | | | 2020 | Visit | | [address] | | | | | | [place] | | | | | | [address] | | | | | | | | +--------+ + + + + documented as of this encounter Visit Diagnoses + + | Diagnosis | + + | Depression, unspecified depression type - Primary | + + | Anxiety Anxiety state, unspecified | + + documented in this encounter
--- OUTSIDE RECORDS SUMMARY | ~2020-09-05 | XMS | Encounter Summary ---
Demographics + + + | Address | [address] | | | [place] [address] | + + + | Home Phone | | + + + | Preferred Language | Unknown | + + + | Marital Status | Single | + + + | Jainism Affiliation | 1059 | + + + | Race | Unknown | + + + | Ethnic Group | Not or | + + + Author + + + | Author | [facility] | | | and [place] | + + + | Organization | [facility] | | | [...] | | | | | [place] [address] | | + + + + + | Concha Paulino | ECON | [address] | | | | | [place] [address] | | + + + + + Care Team Providers + +------+ + | Care Bias Binding Folder Name | Role | Phone | + +------+ + | Tomeka Gomez | PCP | | | Fabian DO | | | + +------+ + Encounter Details +--------+ + + + + | Date | Type | Department | Care Team | Description | +--------+ + + + + | 08/23/ | Hospital | [facility] | Tomeka Gomez | Uterine size-date | | 2017 | Encounter | [address] | Fatimah Peralta DO | discrepancy in | | | | [place], [place] | [address] | trimester | | | | [address] | [place], [place] | | | | | [phone] | [address] | | | | | | | [...] at Time of Discharge + + + +---------+--------+ + | Medication | Sig | Dispensed | Refills | Start | End Date | | | | | | Date | | + + + +---------+--------+ + | diphenhydrAMINE | Take 25 mg by mouth | | 0 | | | | (BENADRYL) 25 mg | every 6 hours as | | | | 0 | | tablet | needed for Itching. | | | | | + + + +---------+--------+ + | fluticasone | 1 spray by Nasal | | 0 | | | | (FLONASE) 50 | route Daily. | | | | 8 | | mcg/nasal spray | | | | | | + + + +---------+--------+ + | hydrOXYzine | Take 25 mg by mouth | | 0 | | | | (ATARAX) 50 MG | as needed. | | | | 9 | | tablet | | | | | | + + + +---------+--------+ + | ibuprofen (ADVIL, | Take 200 mg by mouth | | 0 | | | | MOTRIN) 200 mg | every 6 hours as | | | | 7 | | tablet | needed. | | | | | + + + +---------+--------+ + | 27-0.8 mg | Take 2 tablets by | | 0 | | | | multivitamin tablet | mouth Daily. | | | | 8 | | | Gummies. | | | | | + + + +---------+--------+ + | sertraline | Take 25 mg by mouth | | 0 | | | | (ZOLOFT) 50 mg | Daily. | | | | 8 | | tablet | | | | | | + + + +---------+--------+ + documented as of this encounter Plan [...] | | | | | [place] [address] | | | | | | [phone] | | | | | | | | +--------+ + + + + | 09/22/ | Office | Physical Medicine | Gonzalo Merchant, | | | 2019 | Visit | and Rehabilitation | MD [address] | | | | | | [place] | | | | | | [address] | | | | | | | | +--------+ + + + + | 09/29/ | Virtual | Pain Medicine | Peggy Arreola | | | 2019 | Office | | [address] | | | | Visit | | [place] | | | | | | [place], | | | | | | [place] [address] | | | | | | [phone] | | | | | | | | +--------+ + + + + | 01/24/ | Office | Family Medicine | Kurt Campbell, | | | 2020 | Visit | | DO [address] | | | | | | [place] | | | | | | [address] | | | | | | | | +--------+ + + + + documented as of this encounter Procedures + +--------+ + + + | Procedure Name | Priori | Date/Time | Associated Diagnosis | Comments | | | ty | | | | + +--------+ + + + | US OB FOLLOW UP | Routin | 08/23/2017 | Uterine size-date | Results for this | | TRANSABDOMINAL | e | 8:40 AM | discrepancy in third | procedure are in the | | | | PDT | trimester | results section. | + +--------+ + + + documented in this encounter Results US OB Follow Up Transabdominal (08/23/2017 8:40 AM PDT) + + | Specimen | + + | | + + + + ---+ | Narrative | Performed A t | + + ---+ | EXAM: US OB | [facility] | | FOLLOW UP TRANSABDOMINAL and 08/23/2017 8:40 AM HISTORY: US OB Follow | | | Up Transabdominal. COMPARISON: June 03, 2017 FINDINGS: BPD: 8.32 | | | cm: 33 weeks 3 daysHC: 29.77 cm: 33 weeks 0 daysAC: 27.12 cm: 31 | | | weeks 1 dayFL: 5.91 cm: 30 weeks 6 daysEFW: 1768 g, corresponding to | | | the 12.5 percentile based on ultrasound. Cephalic index: 80.99(normal | | | range 70.0-86.0)HC/AC ratio: 1.10 (0.96-1.14) Composite estimated | | | gestational age by U/S equals 32 weeks 1 day, correlatingwell with LMP | | | dating of 32 weeks 4 days heart rate: 155 bpm. The cervix is | | | not well seen. The placenta is anterior. The fetus is in cephalic | | | presentation. Amniotic fluid index = 13.01 cm (median = 14.4 cm at 32 | | | weeks). Active motion is seen. IMPRESSION - There is a single | | | live intrauterine gestation. There is good correlation between | | | clinical and sonographic dating. Estimated weight falls near the | | | 12th percentile. Dictated and Signed by: Von Talley MD | | | Electronically signed: 08/23/2017 10:37 AM | | | | | |Composite estimated gestational age by U/S equals 32 weeks 1 day, correlating | | |well with LMP dating of 32 weeks 4 days | | | | | | heart rate: 155 bpm. | | | | | |The cervix is not well seen. | | | | | |The placenta is anterior. | | | | | |The fetus is in cephalic presentation. | | | | | |Amniotic fluid index = 13.01 cm (median = 14.4 cm at 32 weeks). | | | | | |Active motion is seen. | | | | | |IMPRESSION - | | | | | |There is a single live intrauterine gestation. | | | | | |There is good correlation between clinical and sonographic dating. | | | | | |Estimated weight falls near the 12th percentile. | | | | | |Dictated and Signed by: Von Talley MD | | | Electronically signed: 08/23/2017 10:37 AM | | | | | + + ---+ + + | Procedure Note | + + | Shaun, Rad Results In - 08/23/2017 10:40 AM PDT EXAM: US OB FOLLOW UP TRANSABDOMINAL | | and 08/23/2017 8:40 AMHISTORY: US OB Follow Up Transabdominal. COMPARISON: June 03 | | 2016FINDINGS:BPD: 8.32 cm: 33 weeks 3 daysHC: 29.77 cm: 33 weeks 0 daysAC: 27.12 cm: 31 | | weeks 1 dayFL: 5.91 cm: 30 weeks 6 daysEFW: 1768 g, corresponding to the 12.5 percentile | | based on ultrasound.Cephalic index: 80.99(normal range 70.0-86.0)HC/AC ratio: 1.10 | | (0.96-1.14)Composite estimated gestational age by U/S equals 32 weeks 1 day, | | correlatingwell with LMP dating of 32 weeks 4 daysFetal heart rate: 155 bpm.The cervix | | is not well seen.The placenta is anterior. The fetus is in cephalic presentation. | | Amniotic fluid index = 13.01 cm (median = 14.4 cm at 32 weeks).Active motion is | | seen.IMPRESSION -There is a single live intrauterine gestation.There is good correlation | | between clinical and sonographic dating.Estimated weight falls near the 12th | | percentile.Dictated and Signed by: Von Talley MD Electronically signed: 08/23/2017 | | 10:37 AM | | | |Cephalic index: 80.99(normal range 70.0-86.0) | |HC/AC ratio: 1.10 (0.96-1.14) | | | |Composite estimated gestational age by U/S equals 32 weeks 1 day, correlating | |well with LMP dating of 32 weeks 4 days | | | | heart rate: 155 bpm. | | | |The cervix is not well seen. | | | |The placenta is anterior. | | | |The fetus is in cephalic presentation. | | | |Amniotic fluid index = 13.01 cm (median = 14.4 cm at 32 weeks). | | | |Active motion is seen. | | | |IMPRESSION - | | | |There is a single live intrauterine gestation. | | | |There is good correlation between clinical and sonographic dating. | | | |Estimated weight falls near the 12th percentile. | | | |Dictated and Signed by: Von Talley MD | | Electronically signed: 08/23/2017 10:37 AM | + + + +---------+ + + | Performing | Address | City/State/Zipcode | Phone Number | | Organization | | | | + +---------+ + + | [facility] | | | | + +---------+ + + documented in this encounter Visit Diagnoses + + | Diagnosis | + + | Uterine size-date discrepancy in third trimester Uterine size date discrepancy, | | antepartum condition or complication | + + documented in this encounter"
--- OUTSIDE RECORDS SUMMARY | ~2020-09-05 | XMS | Encounter Summary ---
Demographics + + + | Address | [address] | | | [place] [address] | + + + | Home Phone | | + + + | Preferred Language | Unknown | + + + | Marital Status | Single | + + + | Sabianist Affiliation | 1059 | + + + | Race | Unknown | + + + | Ethnic Group | Not or | + + + Author + + + | Author | [facility] | | | and [place] | + + + | Organization | [facility] | | | [...] | | | | | [place] [address] | | + + + + + | Concha Paulino | ECON | [address] | | | | | [place] [address] | | + + + + + Care Team Providers + +------+ + | Care Finance Clerk Name | Role | Phone | + +------+ + | Leonid Osorio MD | PCP | | + +------+ + Encounter Details +--------+ + + + + | Date | Type | Department | Care Team | Description | +--------+ + + + + | 01/14/ | Imaging | [facility] | Deborah Knutson, | | | 2018 | Exam | [address] | MD Need updated | | | | | [address] | address | | | | | [place] [address] | | | | | | [phone] | | | +--------+ + + + [...] [address] | | | | | | [place] | | | | | | [place] [address] | | | | | | [phone] | | | | | | | | +--------+ + + + + | 09/22/ | Office | Physical Medicine | Gonzalo Merchant, | | | 2019 | Visit | and Rehabilitation | MD [address]ane [address] | | | | | | [place] | | | | | | [address] | | | | | | | | +--------+ + + + + | 09/29/ | Virtual | Pain Medicine | Peggy Arreola | | | 2019 | Office | | [address] | | | | Visit | | [place] | | | | | | [place] | | | | | | [place] [address] | | | | | | [phone] | | | | | | | | +--------+ + + + + | 01/24/ | Office | Family Medicine | Kurt Campbell, | | | 2020 | Visit | | DO [address] | | | | | | [place] | | | | | | [address] | | | | | | | [...] + documented in this encounter Visit Diagnoses Not on filedocumented in this encounter"
--- OUTSIDE RECORDS SUMMARY | ~2020-09-05 | XMS | Encounter Summary ---
Demographics + + + | Address | [address] | | | [place] [address] | + + + | Home Phone | | + + + | Preferred Language | Unknown | + + + | Marital Status | Single | + + + | Anglican Affiliation | 1059 | + + + | Race | Unknown | + + + | Ethnic Group | Not or | + + + Author + + + | Author | [facility] | | | and [place] | + + + | Organization | [facility] | | [...] | | | | | [place] [address] | | + + + + + | Concha Paulino | ECON | [address] | | | | | [place] [address] | | + + + + + Care Team Providers + +------+ + | Care Glass Sander Belt Name | Role | Phone | + +------+ + | Chance Easley MD | PCP | | + +------+ + Reason for Visit +---------+--------+ + | Reason | Onset | Comments | | | Date | | +---------+--------+ + | Results | 11/09/ | | | | 2013 | | +---------+--------+ + Encounter Details +--------+ + + + + | Date | Type | Department | Care Team | Description | +--------+ + + + + | 11/09/ | Telephone | [facility] | Gonzalo Merchant, | Results | | 2013 | | PHYSIATRY [address] | MD [address] | | | | | [address] | [place] | | | | | [place] | [address] | | | | | [address] | | | | | | [phone] | | | +--------+ + + + + Social History + +-------+ +--------+------+ | Tobacco Use | Types | Packs/Day | Years | Date | | | | | Used | | + +-------+ +--------+------+ | Never Smoker | | | | | + +-------+ +--------+------+ + +---+---+---+ | Smokeless Tobacco: | | | | | Never Used | | | | + +---+---+---+ + + +---------+ + | Alcohol Use | Drinks/Week | oz/Week | Comments | + + +---------+ + | No | | | | + + +---------+ + + + + | Sex Assigned at | Date Recorded | | | | + + + | Female | | + + + documented as of this encounter Miscellaneous Notes Telephone Encounter - Jaqui Dee RN - 11/09/2014 2:07 PM PSTPatient called to be gi tim results, spoke with mother. Confirmed appointment. elephone Encounter - Jaqui Dee RN - 11/09/2014 2 :06 PM PSTMessage copied by JAQUI DEE on SatNov 09, 2014 1406 ------ Message from: GONZALO MERCHANT Created: SatNov 08, 2014 8800 Jaqui, Please let Renny Saravia's parents know that her scoliosis x-rays demonstrate curvature of 18 degrees. No brace required at this time. We will continue to monitor the s coliosis overtime. Thank you, Gonzalo Merchant MD () ----- Message ----- From: Rad Results In Shaun Sent: 11/08/2014 16:44 To: Gonzalo Merchant MD documented in t his encounter Plan of Treatment +--------+ + + + + | Date | Type | Specialty | Care Team | Description | +--------+ + + + + | 09/07/ | Office | Cardiology | Tawana Mcdonald | | | 2020 | Visit | | GLEN Morales [address] | | | | | | [address] [address] | | | | | | [place] [address] | | | | | | [phone] | | | | | | | | +--------+ + + + + | 09/22/ | Office | Physical Medicine | Gonzalo Merchant, | | | 2019 | Visit | and Rehabilitation | MD [address]ane [address] | | | | | | [place] | | | | | | [address] | | | | | | | | +--------+ + + + + | 09/29/ | Virtual | Pain Medicine | Peggy Arreola | | 2019 | Office | | [address] | | | | Visit | | [address] [address] | | | | | | [place], | | | | | | [place] [address] | | | | | | [phone] | | | | | | | | +--------+ + + + + | 01/24/ | Office | Family Medicine | Kurt Campbell, | | | 2020 | Visit | | [address] | | | | | | [place] | | | | | | [address] | | | | | | | | +--------+ + + + + documented as of this encounter Visit Diagnoses Not on filedocumented in this encounter"
--- OUTSIDE RECORDS SUMMARY | ~2020-09-05 | XMS | Encounter Summary ---
Demographics + + + | Address | [address] [facility] [facility] | | | [place] [address] | + + + | Home Phone | | + + + | Preferred Language | Unknown | + + + | Marital Status | Single | + + + | Jain Affiliation | [id number] | + + + | Race | Unknown | + + + | Ethnic Group | Not or | + + + Author + + + | Author | [facility] | | | and [place] | + + + | Organization | [facility] | | | [...] | | | | | [place] [address] | | + + + + + | Concha Paulino | ECON | [address] | | | | | [place] [address] | | + + + + + Care Team Providers + +------+ + | Care Whiteprinting Machine Operator Name | Role | Phone | + +------+ + | Tomeka Gomez | PCP | | | Fabian DO | | | + +------+ + Reason for Visit + + + | Reason | Comments | + + + | Abdominal Pain | | + + + Encounter Details +--------+ + + + + | Date | Type | Department | Care Team | Description | +--------+ + + + + | 05/23/ | Emergency | [facility] | Jonas Dee, | Lower abdominal pain | | 2017 | | [facility] | MD [address] | (Primary Dx); | | | | CENTER [address] | [facility] [place] | Second trimester | | | | [place], [place] | [place] [address] | ; Urinary | | | | [address] | [phone] | tract infection | | | | [phone] | | without hematuria, | | | | | | site unspecified | +--------+ + + + + Social [...] + + + | Blood Pressure | 111/64 | 05/23/2017 8:11 PM | | | | | PDT | | + + + + + | Pulse | 102 | 05/23/2017 8:11 PM | | | | | PDT | | + + + + + | Temperature | 37.2 C (98.9 F) | 05/23/2017 8:11 PM | | | | | PDT | | + + + + + | Respiratory Rate | 16 | 05/23/2017 8:11 PM | | | | | PDT | | + + + + + | Oxygen Saturation | 95% | 05/23/2017 8:11 PM | | | | | PDT | | + + + + + | Inhaled Oxygen | - | - | | | Concentration | | | | + + + + + | Weight | 47.6 kg (105 lb) | 05/23/2017 8:11 PM | | | | | PDT | | + + + + + | Height | 157.5 cm (5' 2") | 05/23/2017 8:11 PM | | | | | PDT | | + + + + + | Body Mass Index | 19.2 | 05/23/2017 8:11 PM | | | | | PDT | | + + + + + documented in this encounter Discharge Instructions Instructions Jonas Dee MD - 05/23/2017Take the medication as prescribed Stay hydrated Follow-up with your OB doctor Tylenol for pain Return if worse AttachmentsThe following attachments cannot be sent through Care Everywhere.BLADDER INFECTI ON, FEMALE (ADULT) (BANGLADESHI): YOUR SECOND TRIMESTER CHANGES (BANGLADESHI)documented in this encounter Medications at Time of Discharge + + + +---------+ + + | Medication | Sig | Dispensed | Refills | Start | End Date | | | | | | Date | | + + + +---------+ + + | cephalexin | Take 1 capsule by | 28 | 0 | 05/23/20 | | | (KEFLEX) 500 mg | mouth 4 times daily | capsule | | 17 | 7 | | capsule | for 7 days. | | | | | + [...] + + + +---------+ + + | 27-0.8 mg | Take 2 tablets by | | 0 | | | | multivitamin tablet | mouth Daily. | | | | 8 | | | Gummies. | | | | | + + + +---------+ + + | sertraline | Take 25 mg by mouth | | 0 | | | | (ZOLOFT) 50 mg | Daily. | | | | 8 | | tablet | | | | | | + + + +---------+ + + documented as of this encounter Procedure Notes Jonas Dee MD - 05/23/2017 9:20 PM PDTAssociated Order(s): US OB LIMITED 1 OR MORE FETUSUS - OB Date/Time: 05/23/2017 21:20 Performed by: JONAS DEE Authorized by: JONAS DEE Consent: Verbal consent obtained. Risks and benefits: risks, benefits and alternatives were discussed Consent given by: patient Patient understanding: patient states understanding of the procedure being performed Patient consent: the patient's understanding of the procedure matches consent given Patient identity confirmed: arm band and verbally with patient Time out: Immediately prior to procedure a "time out" was called to verify the correct kati ent, procedure, equipment, network support administrator and site/side marked as required. Local anesthesia used: no Anesthesia: Local anesthesia used: no Sedation: Patient sedated: no Patient tolerance: Patient tolerated the procedure well with no immediate complications Comments: Quick look bedside ultrasound with transabdominal probe shows a living IUP that i s with a good heartbeat of 140. The fetus is active. There is a good amount of amniotic fl uid. documented in this encounter ED Notes Jonas Dee MD - 05/23/2017 9:18 PM PDTFormatting of this note might be different f rom the original. [facility] Saravia Emergency Department Encounter Note [address] [place] [id number] PCP:Tomeka Gomez DO [phone] CHIEF COMPLAINT Chief Complaint Patient presents with Abdominal Pain HPI Renny Saravia is a 17 y.o. female who presents to the emergency department with lef t lower quadrant abdominal pain. This patient was driving today. She states she drives mindy lly close to the steering well. Her hand slipped off to strain well and struck her lower ab domen. Since that time she's been having some pain in the left lower quadrant. Assisted du ll constant discomfort. A little bit of cramping. No vaginal bleeding. She urinates frequ ently. No fever. No other injuries. She is concerned because she is and came to the ER. She does not appear in any distress. PAST MEDICAL HISTORY Past Medical History: Diagnosis Date Asthma Depression Depression Hypotension Kidney cysts right Migraine SURGICAL HISTORY Past Surgical History: Procedure Laterality Date DENTAL SURGERY CURRENT MEDICATIONS Discharge Medication List as of 05/23/2017 21:58 CONTINUE these medications which have NOT CHANGED Details diphenhydrAMINE (BENADRYL) 25 mg tablet Take 25 mg by mouth every 6 hours as needed for Itc sonia.Historical Med fluticasone (FLONASE) 50 mcg/nasal spray 1 spray by Nasal route Daily.Historical Med hydrOXYzine (ATARAX) 50 MG tablet Take 25 mg by mouth as needed.Historical Med ibuprofen (ADVIL, MOTRIN) 200 mg tablet Take 200 mg by mouth every 6 hours as needed.Histor ical Med 27-0.8 mg multivitamin tablet Take 2 tablets by mouth Daily. Gummies.Historical Me d sertraline (ZOLOFT) 50 mg tablet Take 25 mg by mouth Daily.Historical Med ALLERGIES Allergies Allergen Reactions Rey Flavor Hives Nystatin Swelling Omeprazole Shortness Of Breath Penicillins Hives and Nausea And Vomiting Sulfa Antibiotics Shortness Of Breath Venlafaxine Anaphylaxis Aspirin Other (See Comments) fever Fish Oil Whooping cough injection/ extreme reaction Nitrofuran Derivatives Nausea And Vomiting Penicillins FAMILY HISTORY Family History Problem Relation Age of Onset High blood pressure Mother Asthma Mother Other (see comment) Mother emphysema Mental illness Mother bipolar Mental illness Father depression Colon cancer Father 42 Other (see comment) Father angina Other (see comment) Maternal Grandfather 47 alcoholism/rheumatic fever High blood pressure Maternal Grandmother Heart surgery Maternal Grandmother 4x bypass Other (see comment) Maternal Grandmother pulmonary embolism Heart defect Maternal Grandmother hole in heart Cardiomyopathy Other m-ggm Other (see comment) Maternal Aunt ablation Other (see comment) Other ablation Other (see comment) Other ablation Collagen disease Neg Hx Congenital Heart Disease Neg Hx Deafness Neg Hx Heart Transplant Neg Hx High cholesterol Neg Hx Marfan syndrome Neg Hx Premature CHD Neg Hx Seizures Neg Hx Sudden Neg Hx SOCIAL HISTORY Social History Social History Marital status: Single Spouse name: N/A Number of children: N/A Years of education: N/A Social History Main Topics Smoking status: Passive Smoke Exposure - Never Smoker Smokeless tobacco: Never Used Alcohol use No Drug use: No Sexual activity: Yes Partners: Male control/ protection: Yes Other Topics Concern None Social History Narrative Lives with bio mom and m-grandmother REVIEW OF SYSTEMS All systems reviewed and found negative except what is in the HPI PHYSICAL EXAM VITAL SIGNS: BP 111/64 | Pulse 102 | Temp 37.2 C (98.9 F) (Oral) | Resp 16 | Ht 1. 575 m (5' 2") | Wt 47.6 kg (105 lb) | LMP 01/07/2017 | SpO2 95% | BMI 19.20 kg/m Constitutional: Well developed, Well nourished, No acute distress, Non-toxic appearance. HENT: Normocephalic, Atraumatic, Bilateral external ears normal, Mucous membranes are mois t, Nasal mucosa is normal. Oropharynx is clear. Eyes: Conjunctiva normal, No discharge. Palpebral conjunctiva are pink. Neck: Normal range of motion, No tenderness, Supple, No stridor. Respiratory: Clear to auscultation bilaterally, No respiratory distress, No wheezing Cardiovascular: Normal heart rate, Normal rhythm, No murmurs appreciated. GI: Soft, Non tenderness, No peritoneal signs, gravid consistent with approximately 20 wee ks Extremities: Warm and well perfused, no edema, no joint swelling or deformity. Good ROM. Back: No CVAT, No tenderness of the thoracic or lumbar spine. Skin: Warm, Dry, No erythema, No induration, No rash. Neurologic: Alert & oriented x 3, No focal motor or sensory deficits. Speech is clear. G ait is normal. RADIOLOGY Quick look bedside ultrasound by myself shows a living IUP with a heart beat of approximate ly 140. There is a good amount of amniotic fluid. The fetus is active. ED COURSE & MEDICAL DECISION MAKING Pertinent Labs & Imaging studies reviewed. (See chart for details) The patient was seen and examined shortly after arriving in the emergency department. Hist ory and physical were obtained, vital signs were noted. Very minor trauma to the lower abdo men. The baby is doing well. Urinalysis was obtained. No bleeding. Vital signs are good. Urinalysis is grossly abnormal. Likely is contaminated. Given the fact though that she i s she will be treated with Keflex. Increase fluids. Follow up with OB. FINAL IMPRESSION 1. Lower abdominal pain 2. Second trimester 3. Urinary tract infection without hematuria, site unspecified PLAN Follow-up Information Schedule an appointment as soon as possible for a visit with Tomeka J. Montagnino, DO. Specialty: Obstetrics and Gynecology Contact information: [address] [facility] [id number] Discharge Medication List as of 05/23/2017 21:58 START taking these medications Details cephalexin (KEFLEX) 500 mg capsule Take 1 capsule by mouth 4 times daily for 7 days.Disp-28 capsule, R-0, Print Jonas Dee MD 05/24/17 0610 documented in this encounter Miscellaneous Notes ED Triage Notes - Lubna Chavez RN - 05/23/2017 8:10 PM PDTPatient reports she wa s driving today and that her hand slipped and hit her abdomen. Pt states her lower abdomen is now "sore" with 2/10 pain. Also reports some minor pelvic pain. Pt reports she is 18 we eks . doc umented in this encounter Plan of Treatment +--------+ + + + + | Date | Type | Specialty | Care Team | Description | +--------+ + + + + | 09/07/ | Office | Cardiology | Tawana Mcdonald | | | 2020 | Visit | | GLEN Morales [address] | | | | | | [address] [facility] | | | | | | [place] [address] | | | | | | [phone] | | | | | | | | +--------+ + + + + | 09/22/ | Office | Physical Medicine | Gonzalo Merchant, | | | 2019 | Visit | and Rehabilitation | MD Dane Johnson | | | | | | [place] | | | | | | [address] | | | | | | | | +--------+ + + + + | 09/29/ | Virtual | Pain Medicine | Peggy Arreola | | | 2019 | Office | | [address] | | | | Visit | | [address] | | | | | | [place], | | | | | | [place] [address] | | | | | | [phone] | | | | | | | | +--------+ + + + + | 01/24/ | Office | Family Medicine | Kurt Campbell, | | | 2020 | Visit | | [address] | | | | | | [place] | | | | | | [address] | | | | | | | | +--------+ + + + + + +---------+--------+ + + | Name | Type | Priori | Associated Diagnoses | Date/Time | | | | ty | | | + +---------+--------+ + + | ED INFORMATION | FRANDY | Routin | | 05/23/2017 8:11 PM | | EXCHANGE | | e | | PDT | + +---------+--------+ + + | US POC Abdomen | Imaging | STAT | | 05/23/2017 9:11 PM | | | | | | PDT | + +---------+--------+ + + + +---------+--------+ + + | Name | Type | Priori | Associated Diagnoses | Order Schedule | | | | ty | | | + +---------+--------+ + + | US POC Abdomen | Imaging | STAT | | One time imaging One | | | | | | time imaging for 1 | | | | | | Occurrences starting | | | | | | 05/23/2017 until | | | | | | 05/23/2017 | + +---------+--------+ + + documented as of this encounter Procedures + +--------+ + + + | Procedure Name | Priori | Date/Time | Associated Diagnosis | Comments | | | ty | | | | + +--------+ + + + | URINALYSIS WITH | STAT | 05/23/2017 | | Results for this | | MICROSCOPIC WITH | | 9:36 PM | | procedure are in the | | CULTURE IF INDICATED | | PDT | | results section. | + +--------+ + + + | CULTURE, URINE | STAT | 05/23/2017 | | Results for this | | | | 9:36 PM | | procedure are in the | | | | PDT | | results section. | + +--------+ + + + | US OB LIMITED 1 OR | Routin | 05/23/2017 | | Results for this | | MORE FETUS | e | 9:21 PM | | procedure are in the | | | | PDT | | results section. | + +--------+ + + + | ED INFORMATION | Routin | 05/23/2017 | | | | EXCHANGE | e | 8:11 PM | | | | | | PDT | | | + +--------+ + + + +---+--------+ | | | | | Proced | | | ure | | | Note - | | | Joel, | | | Lab In | | | | | | Hlseve | | | n - | | | 05/23/ | | | 2016 | | | 8:12 | | | PM PDT | | [...] | | | FICATI | | | ON?/ | | | | | | 7 | | | 20:06? | | | HUDDLE | | | SON, | | | RENNY | | | M?MRN: | | | | | | [id number] | | | [id number] | | | his | | | [...] | | | 6979 | | | ED | | | [...] | | | int | | | Mario Alberto | | | 29, | | | 2017 | | | Provid | | | ence | | | [facility] | [place] | | | [place] | | | Emerge | | | ncy | | | Emerge | | | ncy | | | 19 | | | weeks | | | preg/A | | | bd | | | injury | | | Mario Alberto | | | 16, | | | 2017 | | | [place] | | Genera | | | [facility] H. | | | [place] | | | [place] | | | Emerge | | | ncy | | | Emerge | | | ncy | | | Chief | | | Compla | | | int: | | | SOB | | | May | | | 29, | | | 2017 | | | Provid | | | ence | | | [facility] | | | [facility] | | [place] | | | [place] | | | Emerge | | | ncy | | | Emerge | | | ncy | | | | | | abdomi | | | nal | | | pain | | | | | | Abdomi | | | nal | | | Pain | | | (Pregn | | | ant) | | | | | | Pelvic | | | and | | | perine | | | al | | | pain | | | | | | Other | | | specif | | | ied | | | pregna | | | ncy | | | relate | | | d | | | condit | | | ions, | | | unspec | | | ified | | | trimes | | | ter | | | May | | | 18, | | | 2017 | | | [place] | | Gen[place] | | | [facility] [place] | | | [place] | | | Emerge | | | ncy | | | Emerge | | | ncy | | | Chief | | | Compla | | | int: | | | VOMITI | | | NG | | | May | | | 10, | | | 2017 | | | Provid | | | ence | | | [facility] | | | [facility] | [place] | | | Emerge | | | ncy | | | Emerge | | | ncy | | | Back | | | Pain | | | | | | Right | | | lower | | | quadra | | | nt | | | pain | | | Low | | | back | | | pain | | | 12 | | | weeks | | | gestat | | | ion of | | | | | | pregna | | | ncy | | | Other | | | | | | specif | | | ied | | | pregna | | | ncy | | | relate | | | d | | | condit | | | ions, | | | first | | | trimes | | | ter | | | Other | | | | | | specif | | | ied | | | diseas | | | es and | | | | | | condit | | | ions | | | compli | | | cating | | | | | | pregna | | | ncy, | | | childb | | | irth | | | and | | | the | | | puerpe | | | rium | | | May 6, | | | 2017 | | | [place] | | Genera | | | [facility] [place] | | | [place] | | | Emerge | | | ncy | | | Emerge | | | ncy | | | Chief | | | Compla | | | int: | | | DIARRH | | | EA | | | Apr | | | 23, | | | 2017 | | | [place] | | Genera | | | [facility] [place] | | | [place] | | | Emerge | | | ncy | | | Emerge | | | ncy | | | Chief | | | Compla | | | int: | | | DIZZIN | | | ESS, | | | HEADAC | | | HE | | | Apr 2, | | | 2017 | | | [place] | | | Genera | | | l H. | | | [place] | | | Emerge | | | ncy | | | Emerge | | | ncy | | | Chief | | | Compla | | | int: | | | COUGH | | | E.D. | | | [...] | | | Center | | | 3 0 | | | [place] | | | Genera | | | l | | | Hospit | | | al 10 | | | 0 | | | Total | | | 13 0 | | | Note: | | [...] | | | . | | | [place] | | | gton | | | PDMP | | | Report | | | [...] Fatimah | | | | | | Fabian | | | | | | Montag [...] | | | ? | | | 2017 | | | Collec | | | tive | | | Medica | | | l | | | Techno | | | logies | | | , Inc[employer] | | | - | | | [place] | | | [place] | | | [facility], | | | [place] - | | | [email or web address] | | | ollect | | | ivemed | | | icalte | | | [email or web address] | | | | +---+--------+ documented in this encounter Results Culture, Urine (05/23/2017 9:36 PM PDT) + + + + + + | Component | Value | Ref Range | Performed | Pathologist | | | | | At | Signature | + + + + + + | Culture | No Growth | | [facility] | | | | | [facility] | | | | [facility] | | | | | [facility] - | | | | | | LABORATORY | | + + + + + + + + | Specimen | + + | Urine - Urine | | specimen obtained by | | clean catch | | procedure (specimen) | + + + + + + + | Performing | Address | City/State/Zipcode | Phone Number | | Organization | | | | + + + + + | [facility] | [address] | [place] | [phone] | | [facility] | | [address] | | | - LABORATORY | | | | + + + + + Urinalysis with Microscopic with Culture if Indicated (05/23/2017 9:36 PM PDT) + + + + + + | Component | Value | Ref Range | Performed | Pathologist | | | | | At | Signature | + + + + + + | Color, | Yellow | Light Yellow, | [facility] | | | Urine | | Yellow, Straw | [facility] | | | | | | [facility] | | | | | | C[facility] - | | | | | | LABORATORY | | + + + + + + | Clarity, | Hazy (A) | Clear | [facility] | | | Urine | | | [facility] | | | | | | [facility] | | | | | | CENTER - | | | | | | LABORATORY | | + + + + + + | pH, Urine | 7.0 | 5.0 - 8.0 | [facility] | | | | | | [facility] | | | | | | [facility] | | | | | | CENTER - | | | | | | LABORATORY | | + + + + + + | Specific | 1.008 | 1.001 - 1.030 | [facility] | | | [place], | | | [facility] | | | Urine | | | MEDICAL | | | | | | CENTER - | | | | | | LABORATORY | | + + + + + + | Protein, | Negative | Negative | [facility] | | | Urine | | | [facility] | | | | | | MEDICAL | | | | | | CENTER - | | | | | | LABORATORY | | + + + + + + | Blood, | Negative | Negative | [facility] | | | Urine | | | [facility] | | | | | | [facility]ICAL | | | | | | CENTER - | | | | | | LABORATORY | | + + + + + + | Glucose, | Negative | Negative | [facility] | | | Urine | | | [facility] | | | | | | MEDICAL | | | | | | CENTER - | | | | | | LABORATORY | | + + + + + + | Ketones, | Negative | Negative | [facility] | | | Urine | | | [facility] | | | | | | [facility]ICAL | | | | | | CENTER - | | | | | | LABORATORY | | + + + + + + | Bilirubin, | Negative | Negative | [facility] | | | Urine | | | [facility] | | | | | | MEDICAL | | | | | | CENTER - | | | | | | LABORATORY | | + + + + + + | Nitrite, | Negative | Negative | [facility] | | | Urine | | | [facility] | | | | | | [facility]ICAL | | | | | | CENTER - | | | | | | LABORATORY | | + + + + + + | Leukocyte | Large (A) | Negative | [facility] | | | Esterase, | | | [facility] | | | Urine | | | MEDICAL | | | | | | CENTER - | | | | | | LABORATORY | | + + + + + + | Urobilinoge | Negative | 0.2 mg/dL, 1.0 | [facility] | | | n, Urine | | mg/dL, Negative | [facility] | | | | | | MEDICAL | | | | | | CENTER - | | | | | | LABORATORY | | + + + + + + | White Blood | 25-50 (A) | 0 - 2 /HPF | [facility] | | | Cells, | | | [facility] | | | Urine | | | MEDICAL | | | | | | CENTER - | | | | | | LABORATORY | | + + + + + + | Red Blood | 5-10 (A) | 0 - 2 /HPF | [facility] | | | Cells, | | | [facility] | | | Urine | | | MEDICAL | | | | | | CENTER - | | | | | | LABORATORY | | + + + + + + | Squamous | 50-100 (A) | 0 - 2 /LPF | [facility] | | | Epithelial | | | [facility] | | | Cells, | | | MEDICAL | | | Urine | | | CENTER - | | | | | | LABORATORY | | + + + + + + | Bacteria, | 1+ (A) | Negative /HPF | [facility] | | | Urine | | | [facility] | | | | | | MEDICAL | | | | | | CENTER - | | | | | | LABORATORY | | + + + + + + | Mucus, | Present (A) | Negative /LPF | [facility] | | | Urine | | | [facility] | | | | | | MEDICAL | | | | | | CENTER - | | | | | | LABORATORY | | + + + + + + | Amorphous | Few (A) | None Seen /HPF | [facility] | | | Crystals, | | | [facility] | | | Urine | | | MEDICAL | | | | | | CENTER - | | | | | | LABORATORY | | + + + + + + | Urine | Urine Culture Set Up | | [facility] | | | Comment | | | [facility] | | | | | | MEDICAL | | | | | | CENTER - | | | | | | LABORATORY | | + + + + + + + + | Specimen | + + | Urine - Urine | | specimen obtained by | | clean catch | | procedure (specimen) | + + + + + + + | Performing | Address | City/State/Zipcode | Phone Number | | Organization | | | | + + + + + | [facility] | [address] | [place] | [phone] | | [facility] | | [address] | | | - LABORATORY | | | | + + + + + US OB Limited 1 or More Fetus (05/23/2017 9:21 PM PDT) + + + | Narrative | Performed At | + + + | Jonas Dee MD 05/23/2017 21:21 US - OB Date/Time: | [facility] | | 05/23/2017 21:20 Performed by: JONAS DEE Authorized by: | | | JONAS DEE Consent: Verbal consent obtained. Risks and | | | benefits: risks, benefits and alternatives were discussed Consent | | | given by: patient Patient understanding: patient states understanding | | | of the procedure being performed Patient consent: the patient's | | | understanding of the procedure matches consent given Patient | | | identity confirmed: arm band and verbally with patient Time out: | | | Immediately prior to procedure a "time out" was called to verify the | | | correct patient, procedure, equipment, network support administrator and site/side | | | marked as required. Local anesthesia used: no Anesthesia: Local | | | anesthesia used: no Sedation: Patient sedated: no Patient | | | tolerance: Patient tolerated the procedure well with no immediate | | | complications Comments: Quick look bedside ultrasound with | | | transabdominal probe shows a living IUP that is with a good | | | heartbeat of 140. The fetus is active. There is a good amount of | | | amniotic fluid. | | + + + + +---------+ + + | Performing | Address | City/State/Zipcode | Phone Number | | Organization | | | | + +---------+ + + | [facility] | | | | + +---------+ + + documented in this encounter Visit Diagnoses + + | Diagnosis | + + | Lower abdominal pain - Primary Abdominal pain, other specified site | + + | Second trimester | + + | Urinary tract infection without hematuria, site unspecified | + + documented in this encounter Administered Medications + + + +--------+------+------+ | Medication Order | MAR | Action | Dose | Rate | Site | | | Action | Date | | | | + + + +--------+------+------+ | cephalexin (KEFLEX) capsule (ED | Dispense | 05/23/20 | 250 mg | | | | prepack) 250 mg 250 mg, Oral, | to Home | 17 10:02 | | | | | ONCE, [facility] 05/23/17 at 2155, For 1 | | PM PDT | | | | | dose, Take 2 capsule(s) by mouth | | | | | | | every 6 hours Dispense for home | | | | | | | use., Indications: UTI - LOWER | | | | | | + + + +--------+------+------+ +---+---+ | | | +---+---+ documented in this encounter
--- OUTSIDE RECORDS SUMMARY | ~2020-09-05 | XMS | Encounter Summary ---
Demographics + + + | Address | [address] | | | [place] [address] | + + + | Home Phone | | + + + | Preferred Language | Unknown | + + + | Marital Status | Single | + + + | Baptist Affiliation | 1059 | + + + | Race | Unknown | + + + | Ethnic Group | Not or | + + + Author + + + | Author | [facility] | | | and [place] | + + + | Organization | [facility] | | | and [...] | | | | | [place] [address] | | + + + + + | Concha Paulino | ECON | [address] | | | | | [place] [address] | | + + + + + Care Team Providers + +------+ + | Care Targeting Acquisition Officer Name | Role | Phone | + +------+ + | Kurt Campbell DO | PCP | | + +------+ + Reason for Visit +---------+--------+ + | Reason | Onset | Comments | | | Date | | +---------+--------+ + | Results | 06/05/ | | | | 2019 | | +---------+--------+ + Encounter Details +--------+ + + + + | Date | Type | Department | Care Team | Description | +--------+ + + + + | 04/29/ | Telephone | [facility] | Kurt Campbell, | Results | 2019 | | [place]IC[place] | DO [address] | | | | | [address] | [place] | | | | | [place] | [address] | | | | | [address] | | | | | | [phone] | | | +--------+ + + + [...] this encounter Miscellaneous Notes Telephone Encounter - Lindsey Gonzalez Extracting Machine Operator - 04/29/2020 4:38 PM PDTProvided results to patient, she will corn picker the Vitamin D elephone Encounter - Lindsey Gonzalez Medical As sistant - 04/29/2020 4:37 PM PDT----- Message from Kurt Campbell DO sent at 04/29/2020 4:3 6 PM PDT ----- CBC without anemia. Her white blood cell count is normal Mild eosinophil percent increase which can be attributed to allergies Normal thyroid level Normal iron levels Normal B12 level Low vitamin D. Recommend vitamin D supplement of 2000 international units dailyElectronica lly signed by Jones Duque Assistant at 04/29/2020 4:37 PM PDTdocumented in this encounter Plan of Treatment +--------+ + + + + | Date | Type | Specialty | Care Team | Description | +--------+ + + + + | 09/07/ | Office | Cardiology | Tawana Mcdonald | | | 2019 | Visit | | [address] | | | | | | [place] [address] | | | | | | [place] [address] | | | | | | [phone] | | | | | | | | +--------+ + + + + | 09/22/ | Office | Physical Medicine | Gonzalo Merchant, | | | 2019 | Visit | and Rehabilitation | MD [address] | | | | | | [place] | | | | | | [address] | | | | | | | | +--------+ + + + + | 09/29/ | Virtual | Pain Medicine | Peggy Arreola | | | 2019 | Office | | [address] | | | | Visit | | [address] | | | | | | [place] | | | | | | [place] [address] | | | | | | [phone] | | | | | | | | +--------+ + + + + | 01/24/ | Office | Family Medicine | Kurt Campbell, | | | 2020 | Visit | | DO [address] | | | | | | [place] | | | | | | [address] | | | | | | | | +--------+ + + + + documented as of this encounter Visit Diagnoses Not on filedocumented in this encounter"
--- OUTSIDE RECORDS SUMMARY | ~2020-09-05 | XMS | Encounter Summary ---
Demographics + + + | Address | [address] | | | [place] [address] | + + + | Home Phone [...] Author + + + | Author | [facility] | | | and [place] | + + + | Organization | [facility] | | | [...] | | | | | [place] [address] | | + + + + + | Concha Paulino | ECON | [address] | | | | | [place] [address] | | + + + + + Care Team Providers + +------+ + | Care Detail Technician Name | Role | Phone | + +------+ + | Chance Easley MD | PCP | | + +------+ + Reason for Visit + +--------+ + | Reason | Onset | Comments | | | Date | | + +--------+ + | Imaging Only | 10/27/ | | | | 2013 | | + +--------+ + Encounter Details +--------+ + + + + | Date | Type | Department | Care Team | Description | +--------+ + + + + | 10/27/ | Telephone | [facility] | Gonzalo Merchant, | Imaging Only | | 2013 | | PHYSIATRY [address] | MD [address] | | | | | [address] | [place] | | | | | [place] | [id number] | | | | | [address] | | | | | | [phone] | | | +--------+ + + + [...] Telephone Encounter - Jaqui Dee RN - 10/27/2014 11:46 AM PSTNew order elephone Encounter - Maite Dee RN - 10/27/2014 11:10 AM PSTMessage copied by JAQUI DEE on SatOct 27, 2014 1110 ------ Message from: ALEXSANDRA COLLIER Created: SatOct 20, 2014 0758 Kimberly owusu ----- Message ----- From: Jaqui Dee RN Sent: 10/19/2014 16:35 To: Alexsandra Collier Yes,ill reorder it in the am. ----- Message ----- From: Alexsandra Collier Sent: 10/19/2014 13:15 To: Jaqui Dee RN The order from 06/2013 has . Can a new one be entered? documented in t his encounter Plan of [...] | | | | | [place] [address] | | | | | | [phone] | | | | | | | | +--------+ + + + + | 09/22/ | Office | Physical Medicine | Gonzalo Merchant, | | | 2019 | Visit | and Rehabilitation | MD [address] | | | | | | [place] | | | | | | [address] | | | | | | | | +--------+ + + + + | 09/29/ | Virtual | Pain Medicine | Peggy Arreola | | | 2019 | Office | | [address] | | | | Visit | | [place] | | | | | | [place], | | | | | | [place] [address] | | | | | | [phone] | | | | | | | | +--------+ + + + + | 01/24/ | Office | Family Medicine | Kurt Campbell, | | | 2020 | Visit | | DO [address] | | | | | | [place] | | | | | | [address] | | | | | | | | +--------+ + + + + documented as of this encounter Results XR Scoliosis Standing (11/08/2014 3:32 PM PST) + + | Specimen | + + | | + + + + + | Narrative | Performed At | + + + | XR THORACOLUMBAR STANDING FOR SCOLIOSIS 11/08/2014 3:32 PM | [facility] | | HISTORY: scoliosis. COMPARISON: None. FINDINGS: There is | LAB | | moderate S-shaped scoliosis of the thoracolumbar spine. The greatest | | | curvature is present between T9 and L4 with the Broussard angle measured at | | | 18 degrees. Bone mineralization is normal. There is an umbilical | | | ring. IMPRESSION - Moderate S-shaped scoliosis. Dictated and | | | Signed by: Blaise Crawford MD Electronically signed: 11/08/2014 4:40 | | | PM | | + + + + + | Procedure Note | + + | Shaun, Rad Results In - 11/08/2014 4:44 PM PST XR THORACOLUMBAR STANDING FOR SCOLIOSIS | | 11/08/2014 3:32 PMHISTORY: scoliosis.COMPARISON: None.FINDINGS:There is moderate | | S-shaped scoliosis of the thoracolumbar spine. The greatestcurvature is present between | | T9 and L4 with the Broussard angle measured at 18degrees. Bone mineralization is normal. | | There is an umbilical ring.IMPRESSION -Moderate S-shaped scoliosis.Dictated and Signed | | by: Blaise Crawford MD Electronically signed: 11/08/2014 4:40 PM | |FINDINGS: | |There is moderate S-shaped scoliosis of the thoracolumbar spine. The greatest | |curvature is present between T9 and L4 with the Broussard angle measured at 18 | |degrees. Bone mineralization is normal. There is an umbilical ring. | | | |IMPRESSION - | |Moderate S-shaped scoliosis. | | | |Dictated and Signed by: Blaise Crawford MD | | Electronically signed: 11/08/2014 4:40 PM | + + + +---------+ + + | Performing | Address | City/State/Zipcode | Phone Number | | Organization | | | | + +---------+ + + | [facility] | | | [phone] | + +---------+ + + | [facility] | | | [phone] | + +---------+ + + documented in this encounter Visit Diagnoses + + | Diagnosis | + + | Adolescent idiopathic scoliosis of thoracolumbar region - Primary Scoliosis (and | | kyphoscoliosis), idiopathic | + + documented in this encounter"
--- OUTSIDE RECORDS SUMMARY | ~2020-09-05 | XMS | Encounter Summary ---
Demographics + + + | Address | [address] | | | [place] [address] | + + + | Home Phone [...] Author + + + | Author | [facility] | | | and [place] | + + + | Organization | [facility] | | [...] | | | | | [place] [address] | | + + + + + | Concha Paulino | ECON | [address] | | | | | [place] [address] | | + + + + + Care Team Providers + +------+ + | Care Nut Grader Name | Role | Phone | + +------+ + PCP | Unavailable | + +------+ + Encounter Details +--------+ + + + + | Date | Type | Department | Care Team | Description | +--------+ + + + + | 03/15/ | Hospital | [facility] | | | | 2005 - | Encounter | [facility] | | | | [facility] [address] | | | | 03/16/ | | [place] | | | | 2005 | | [address] | | | | | | [phone] | | | +--------+ + + + [...] | | | | | [place] [address] | | | | | | [phone] | | | | | | | | +--------+ + + + + | 09/22/ | Office | Physical Medicine | Gonzalo Merchant, | | | 2019 | Visit | and Rehabilitation | MD [address] | | | | | | [place] | | | | | | [id number] | | | | | | | | +--------+ + + + + | 09/29/ | Virtual | Pain Medicine | Peggy Arreola | | | 2019 | Office | | [address] | | | | Visit | | [place] | | | | | | [place], | | | | | | [place] [address] | | | | | | [phone] | | | | | | | | +--------+ + + + + | 01/24/ | Office | Family Medicine | Kurt Campbell, | | | 2020 | Visit | | DO [address] | | | | | | [place] | | | | | | [address] | | | | | | | | +--------+ + + + + documented as of this encounter Visit Diagnoses Not on filedocumented in this encounter"
--- OUTSIDE RECORDS SUMMARY | ~2020-09-05 | XMS | Encounter Summary ---
Demographics + + + | Address | [address] [facility] [facility] [address] [facility] [facility] | | | [place] [address] | + + + | Home Phone | | + + + | Preferred Language | Unknown | + + + | Marital Status | Single | + + + | Anabaptism Affiliation | 1059 | + + + | Race | Unknown | + + + | Ethnic Group | Not or | + + + Author + + + | Author | [facility] | | | and [place] | + + + | Organization | [facility] | | | and [...] | | | | | [place] [address] | | + + + + + | Concha Paulino | ECON | [address] | | | | | [place] [address] | | + + + + + Care Team Providers + +------+ + | Care Hydraulic Hammer Operator Name | Role | Phone | + +------+ + | Chance Easley MD | PCP | | + +------+ + Encounter Details +--------+---------+ + + + | Date | Type | Department | Care Team | Description | +--------+---------+ + + + | 11/11/ | Office | [facility] [place] | Gonzalo Merchant, | Adolescent | | 2013 | Visit | PHYSIATRY [address] | MD [address] | idiopathic scoliosis | | | | [address] | [place] | of thoracolumbar | | | | [place] | [address] | region (Primary Dx) | | | | [address] | | | | | | [phone] | | | +--------+---------+ + + + [...] + + + | Blood Pressure | 108/72 | 11/11/2014 1:17 PM | | | | | PST | | + + + + + | Pulse | 87 | 11/11/2014 1:17 PM | | | | | PST | | + + + + + | Temperature | - | - | | + + + + + | Respiratory Rate | 18 | 11/11/2014 1:17 PM | | | | | PST | | + + + + + | Oxygen Saturation | - | - | | + + + + + | Inhaled Oxygen | - | - | | | Concentration | | | | + + + + + | Weight | 48.1 kg (106 lb) | 11/11/2014 1:17 PM | | | | | PST | | + + + + + | Height | 157.5 cm (5' 2") | 11/11/2014 1:17 PM | | | | | PST | | + + + + + | Body Mass Index | 19.39 | 11/11/2014 1:17 PM | | | | | PST | | + + + + + documented in this encounter Patient Instructions Patient Instructions Gonzalo Merchant MD - 11/11/2014 1:45 PM PSTContinue the exercises fo r your back as outlined by physical therapy. Make sure to put your backpack over both shoulders, not just one. Repeat scoliosis x-ray of your back around 11/08/2015. Return to the clinic on one year after repeating your x-rays. documented in this encounter Progress Notes Gonzalo Merchant MD - 11/11/2014 1:49 PM PSTThis office note has been dictated. Job ID# [id number] signed by Gonzalo Merchant MD at 11/11/2014 2:52 PM Gonzalo Vazquez MD - 11/11/2014 12:00 AM PST [facility] [address] [place] [address] FAX: [phone] OFFICE VISIT PRIMARY CARE PROVIDER: Chance Easley MD. DATE OF SERVICE: 11/11/2014 PATIENT IDENTIFICATION: A 14-year-old female with thoracolumbar scoliosis. HISTORY OF PRESENT ILLNESS: Ms. Saravia was last seen by me June 2013. At that time, it was noted that she had idiopathic scoliosis of the thoracolumbar spine. It was 18 degrees. She was asked to repeat x-rays of the spine to evaluate for any progress in her scoliosis. She has previously been asked to participate in physical therapy. She was given exercises to prevent progression of scoliosis and stabilize spine. She continues to do those exercise s. She had recent repeat x-ray. She returns to clinic today to review the results of x-ray and discuss management of her scoliosis. Ms. Saravia denies pain. She denies any neurologic symptoms. She denies numbness, paresth esia or weakness. She indicates that she has had minimal growth within the last year. She b elieves that she may have stopped growing. Her mother reports that the mother stopped growi ng at age 12. Renny indicates that she has a very heavy book bag. She questions whether or not it is safe to use a backpack. She was advised that she can use a backpack so long as sh e uses both shoulder straps not just one. She denies any difficulties breathing. ALLERGIES 1. ROCHE FLAVOR. 2. NYSTATIN. 3. OMEPRAZOLE. 4. PENICILLIN. 5. SULFA ANTIBIOTICS. 6. ASPIRIN. CURRENT MEDICATIONS 1. Melatonin at bedtime. 2. Progesterone 5 mg daily. 3. Zoloft 25 mg 2 tablets daily. REVIEW OF SYSTEMS: Ms. Saravia denies nausea, vomiting, diarrhea, constipation, fever, c hills, shortness of breath, or chest pain. Denies skin breakdown or rash. All other review o f systems negative. PHYSICAL EXAMINATION VITAL SIGNS: Heart rate 87, respiratory rate 18, blood pressure 108/72, weight 106 pounds, height 5 feet 2 inches. GENERAL: No acute distress. A 0/10 pain. Alert and oriented to person, place, time and sit uation. Accompanied by mother and grandmother. HEENT: Extraocular muscles intact. Sclerae clear. NECK: Normal range of motion. Axial loading test negative. BACK: Slight asymmetry. Seated straight leg raise negative. Kanu's test negative. EXTREMITIES: Exam reveals no clubbing , cyanosis or edema. NEUROLOGICAL: Exam demonstrates normal strength, sensation, and reflex es in all 4 extremities. Gait normal. BACK: Examination demonstrates a scoliotic curvature. On visual examination, scoliosis is m ild. [place] of scoliosis appears to be in the lower thoracic, upper lumbar region. IMPRESSION: ADOLESCENT IDIOPATHIC SCOLIOSIS OF THE THORACOLUMBAR SPINE, ICD-9 737.30. PLAN: Ms. Fengs scoliosis x-ray was personally reviewed by me and reviewed in detail with her and her family today, x-rays from November 08, 2014. This demonstrates a scoliotic curvature of 18 degrees. The scoliosis is unchanged when compared to x-ray of June 22 3. Scoliosis appears to be dextroscoliosis centered at T8-9 and levoscoliosis centered at L 2. Ms. Holden scoliosis is stable over the last lakz-mru-i-half. No changes in degree. Tanja raya has no pain. Neurologically stable. She reports very little growth at this time. We discu ssed that she may experience some growth through her late teens and up to the age 21 at the latest. We discussed that when she quits growing, the likelihood of scoliosis progressing is minimal. She is encouraged to continue exercise program as outlined by previous physical therapy. She is encouraged to use her backpack on both shoulders, not just one shoulder. Malika raya discussed that she should repeat an x-ray in one year's time once again to monitor and ma nage her scoliosis for any progression. We discussed that if her scoliosis progresses beyon d 20 degrees, we may consider bracing during growth years. We discussed that since her grow th is slowing that the likelihood of scoliosis progressing to a need for surgical interven tion such as 40 degrees or more is unlikely. Thank you for allowing me to be involved in the care of your patient. If you have any quest ions regarding the care of Ms Saravia, please do not hesitate to call. Gonzalo Merchant Jr, MD GEM / AF JOB #: [id number] cc: Chance Easley MD documented in this encounter Plan of Treatment [...] | | | | | [place] [address] | | | | | | [phone] | | | | | | | | +--------+ + + + + | 09/22/ | Office | Physical Medicine | Gonzalo Merchant, | | | 2019 | Visit | and Rehabilitation | MD [address] | | | | | | [place] | | | | | | [address] | | | | | | | | +--------+ + + + + | 09/29/ | Virtual | Pain Medicine | Peggy Arreola | | | 2019 | Office | | [address] | | | | Visit | | [place] | | | | | | [place], | | | | | | [place] [address] | | | | | | [phone] | | | | | | | | +--------+ + + + + | 01/24/ | Office | Family Medicine | Kurt Campbell, | | | 2020 | Visit | | DO [address] | | | | | | [place] | | | | | | [address] | | | | | | | | +--------+ + + + + documented as of this encounter Visit Diagnoses + + | Diagnosis | + + | Adolescent idiopathic scoliosis of thoracolumbar region - Primary Scoliosis (and | | kyphoscoliosis), idiopathic | + + documented in this encounter
--- OUTSIDE RECORDS SUMMARY | ~2020-09-05 | XMS | Encounter Summary ---
Demographics + + + | Address | [address] | | | [place] [address] | + + + | Home Phone | | + + + | Preferred Language | Unknown | + + + | Marital Status | Single | + + + | Alevism Affiliation | 1059 | + + + | Race | Unknown | + + + | Ethnic Group | Not or | + + + Author + + + | Author | [facility] | | | and [place] | + + + | Organization | [facility] | | | and [...] | | | | | [place] [address] | | + + + + + | Concha Zeeshanletty | ECON | [address] | | | | | [place] [address] | | + + + + + Care Team Providers + +------+ + | Care Security Representative Name | Role | Phone | + +------+ + | Kurt Campbell DO | PCP | | + +------+ + Reason for Referral Evaluate & Treat (Routine) + + + + + + + | Status | Reason | Specialty | Diagnoses / | Referred By | Referred To | | | | | Procedures | Contact | Contact | + + + + + + + | Authorized | Specialty | Physical | Diagnoses | [facility], [facility] | | | Services | Medicine and | Trigger | Kurt High DO | Physiatry | | | Required | Rehabilitatio | point of | [address] | | | [address] | thoracic | [address] [place] [address] | | | | | region | [place] | [place], | | | | | | [address] | [place] [address] | | | | | | Phone: | Phone: | | | | | | [phone] | [phone] | | | | | | Fax: | Fax: | | | | | | [phone] | [phone] | + + + + + + + Reason for Visit + +--------+ + | Reason | Onset | Comments | | | Date | | + +--------+ + | Referral (Follow up) | 07/14/ | | | | 2019 | | + +--------+ + Encounter Details +--------+ + + + + | Date | Type | Department | Care Team | Description | +--------+ + + + + | 07/14/ | Telephone | [facility] | Kurt Campbell, | Referral (Follow up) | | 2019 | | MEDICINE [place] | DO [address] | | | | | [address] | [place] | | | | | [place] | [address] | | | | | [address] | | | | | | [phone] | | | +--------+ + + + [...] this encounter Miscellaneous Notes Telephone Encounter - Valerie Tan LPN - 07/14/2020 4:15 PM PDTReceived a referral carroll hinson request for patient to have an appointment on 07/18/2020 Upon review of the chart, patient has an appointment DR. Merchant Referral done docume ntbatool in this encounter Plan of Treatment +--------+ + + + + | Date | Type | Specialty | Care Team | Description | +--------+ + + + + | 09/07/ | Office | Cardiology | M[place] | | | 2019 | Visit | | GLEN [address] | | | | | | [address] | | | | | | [place] [address] | | | | | | [phone] | | | | | | | | +--------+ + + + + | 09/22/ | Office | Physical Medicine | Gonzalo Merchant, | | | 2019 | Visit | and Rehabilitation | MD [address] | | | | | | [place] | | | | | | [address] | | | | | | | | +--------+ + + + + | 09/29/ | Virtual | Pain Medicine | Peggy Arreola | | | 2019 | Office | | [address] | | | | Visit | | [place] | | | | | | [place], | | | | | | [place] [address] | | | | | | [phone] | | | | | | | | +--------+ + + + + | 01/24/ | Office | Family Medicine | Kurt Campbell, | | | 2020 | Visit | | DO [address] | | | | | | [place] | | | | | | [address] | | | | | | | | +--------+ + + + + + + +--------+ + + | Name | Type | Priori | Associated Diagnoses | Order Schedule | | | | ty | | | + + +--------+ + + | * PMRachel BUI | Outpatient | Routin | Trigger point of | Ordered: 07/14/2020 | | Physiatry - AMB | Referral | e | thoracic region | | | Referral | | | | | + + +--------+ + + documented as of this encounter Visit Diagnoses + + | Diagnosis | + + | Trigger point of thoracic region - Primary Backache, unspecified | + + documented in this encounter"
--- OUTSIDE RECORDS SUMMARY | ~2020-09-05 | XMS | Encounter Summary ---
Demographics + + + | Address | [address] [facility] | | | [place] [address] | + + + | Home Phone | | + + + | Preferred Language | Unknown | + + + | Marital Status | Single | + + + | Gnosticist Affiliation | 1059 | + + + | Race | Unknown | + + + | Ethnic Group | Not or | + + + Author + + + | Author | [facility] | | | and [place] | + + + | Organization | [facility] | | | [...] | | | | | [place] [address] | | + + + + + | Concha Paulino | ECON | [address] | | | | | [place] [address] | | + + + + + Care Team Providers + +------+ + | Care Bartender Helper Name | Role | Phone | + +------+ + | Leonid Osorio MD | PCP | | + +------+ + Reason for Visit +---------+--------+ + | Reason | Onset | Comments | | | Date | | +---------+--------+ + | Results | 09/13/ | | | | 2014 | | +---------+--------+ + Encounter Details +--------+ + + + + | Date | Type | Department | Care Team | Description | +--------+ + + + + | 09/13/ | Telephone | [facility] | Nathaly Monahan | Results | | 2014 | | for Congenital Heart | A, RN | | | | | Disease [address] | | | | [address] | | | | | | [place] | | | | | | [address] | | | | | | [phone] | | | +--------+ + + + [...] this encounter Miscellaneous Notes Telephone Encounter - Nathaly Monahan RN - 09/13/2015 3:57 PM PDTSpoke with patient's mother and conveyed normal findings. Instructed to f/u on 09/21/[address] Hinson. She verbal izes understanding. TTelephone Encounter - Nathaly Monahan RN - 09/13/2015 10:57 AM PDT----- Message from Yaneli Saldaña MD sent at 09/13/2015 10:47 PDT ----- Please call the patient/parent. The event monitor recordings were all completely normal, i ncluding during any documented symptoms. Please followup as per Dr. Wilson on 09/21/[address] Brooklyn Hinson, thanks!!-- ChrisElectronically signed by Nathaly Monahan RN at 1 10:57 AM PDTdocumented in this encounter Plan of Treatment [...] | | | | | [place] [address] | | | | | | [phone] | | | | | | | | +--------+ + + + + | 09/22/ | Office | Physical Medicine | Gonzalo Merchant, | | | 2019 | Visit | and Rehabilitation | [address] | | | | | | [place] | | | | | | [address] | | | | | | | | +--------+ + + + + | 09/29/ | Virtual | Pain Medicine | Peggy Arreola | | 2019 | Office | | [address] | | | | Visit | | [place] | | | | | | [place], | | | | | | [place] [address] | | | | | | [phone] | | | | | | | | +--------+ + + + + | 01/24/ | Office | Family Medicine | Kurt Campbell, | | | 2020 | Visit | | DO [address] | | | | | | [place] | | | | | | [address] | | | | | | | | +--------+ + + + + documented as of this encounter Visit Diagnoses Not on filedocumented in this encounter"
--- OUTSIDE RECORDS SUMMARY | ~2020-09-05 | XMS | Encounter Summary ---
Demographics + + + | Address | [address] [facility] [facility] | | | [place] [address] | + + + | Home Phone [...] | | | | | [place] [address] | | + + + + + | Concha Paulino | ECON | [address] | | | | | [place] [address] | | + + + + + Care Team Providers + +------+ + | Care Aircraft Cylinder Mechanic Name | Role | Phone | + +------+ + PCP | Unavailable | + +------+ + Encounter Details +--------+ + + + + | Date | Type | Department | Care Team | Description | +--------+ + + + + | 05/30/ | Hospital | [facility] | | | | 2006 | Encounter | [facility] [address] | | | | | | [place] | | | | | | [address] | | | | | | [phone] | | | +--------+ + + + [...] [place] | | | | | | [place] [address] | | | | | | [phone] | | | | | | | | +--------+ + + + + | 09/22/ | Office | Physical Medicine | Gonzalo Merchant, | | | 2019 | Visit | and Rehabilitation | MD [address] | | | | | | [place] | | | | | | [id number] | | | | | | | | +--------+ + + + + | 09/29/ | Virtual | Pain Medicine | Peggy Arreola | | | 2019 | Office | | [address] | | | | Visit | | [address] | | | | | | [place] | | | | | | [place] [address] | | | | | | [phone] | | | | | | | | +--------+ + + + + | 01/24/ | Office | Family Medicine | Kurt Campbell, | | | 2020 | Visit | | DO Evon CARDOZO | | | | | | [place] | | | | | | [phone] | | | | | | | | +--------+ + + + + documented as of this encounter Visit Diagnoses Not on filedocumented in this encounter"
--- OUTSIDE RECORDS SUMMARY | ~2020-09-05 | XMS | Encounter Summary ---
Demographics + + + | Address | [address] [facility] | | | [place] [address] | + + + | Home Phone | | + + + | Preferred Language | Unknown | + + + | Marital Status | Single | + + + | Amish Affiliation | [id number] | + + + | Race | Unknown | + + + | Ethnic Group | Not or | + + + Author + + + | Author | [facility] | | | and [place] | + + + | Organization | [facility] | | | and [...] | | | | | [place] [address] | | + + + + + | Concha Paulino | ECON | [address] | | | | | [place] [address] | | + + + + + Care Team Providers + +------+ + | Care Expediter Service Order Name | Role | Phone | + +------+ + | Tomeka Gomez | PCP | | | Fabian DO | | | + +------+ + Reason for Visit + + + | Reason | Comments | + + + | Abdominal Pain | | | () | | + + + Encounter Details +--------+ + + + + | Date | Type | Department | Care Team | Description | +--------+ + + + + | 04/22/ | Emergency | [facility] | Tam Denney, | Pelvic pain in | | 2016 | | [facility] | MD [address] | (Primary | | | | CENTER [address] | [place] | Dx) | | | | [place] | [id number] | | | | | [address] | | | | | | [phone] | | | +--------+ + + + [...] + + + | Blood Pressure | 120/84 | 04/22/2017 5:43 AM | | | | | PDT | | + + + + + | Pulse | 86 | 04/22/2017 5:43 AM | | | | | PDT | | + + + + + | Temperature | 37 C (98.6 F) | 04/22/2017 5:43 AM | | | | | PDT | | + + + + + | Respiratory Rate | 18 | 04/22/2017 5:43 AM | | | | | PDT | | + + + + + | Oxygen Saturation | 99% | 04/22/2017 5:43 AM | | | | | PDT | | + + + + + | Inhaled Oxygen | - | - | | | Concentration | | | | + + + + + | Weight | 48.1 kg (106 lb) | 04/22/2017 5:43 AM | | | | | PDT | | + + + + + | Height | 157.5 cm (5' 2") | 04/22/2017 5:43 AM | | | | | PDT | | + + + + + | Body Mass Index | 19.39 | 04/22/2017 5:43 AM | | | | | PDT | | + + + + + documented in this encounter Discharge Instructions AttachmentsThe following attachments cannot be sent through Care Everywhere.PELVIC PAIN IN : UNCLEAR (2-3 TRIMESTER) ([place]IZ[place])documented in this encounter Medications at Time of Discharge + + + +---------+ + + | Medication | Sig | Dispensed | Refills | Start | End Date | | | | | | Date | | + + + +---------+ + + | azithromycin | 2 tablets orally on | 6 | 0 | 02/14/20 | | | (ZITHROMAX) 250 mg | the first day, then | tablet | | 17 | 7 | | tabletIndications: | one tablet orally | | | | | | Pharyngitis, | daily for 4 more | | | | | | unspecified | days | | | | | | etiology, Bronchitis | | | | | | + [...] + documented as of this encounter ED Tam Donato MD - 04/22/2017 5:50 AM PDTFormatting of this note might be different fr om the original. [facility] Emergency Department Encounter Note [address] [place] [address] PCP:Tomeka Gomez DO [phone] CHIEF COMPLAINT: Chief Complaint Patient presents with Abdominal Pain () ED Room: ED10/ED10 ED Triage Notes Yazan Martines RN 04/22/2017 5:43 Pt reports generalized abdominal pain beginning this AM. 15 weeks HPI R[facility]avia is a 17 y.o. female who presents to the Emergency Department with low er abdominal cramping pain that now radiates up into the epigastric region. Patient has had 24 hours of diarrhea and feels like the pain is cramping and is aching. No associated feve rs and no vomiting. 15 weeks at this time and has had issues with mild dysuria rec ently PAST MEDICAL & SURGICAL HISTORY Past Medical History: Diagnosis Date Asthma Depression Depression Hypotension Kidney cysts right Migraine Past Surgical History: Procedure Laterality Date DENTAL SURGERY CURRENT MEDICATIONS Previous Medications AZITHROMYCIN (ZITHROMAX) 250 MG TABLET 2 tablets orally on the first day, then one tabl et orally daily for 4 more days DIPHENHYDRAMINE (BENADRYL) 25 MG TABLET Take 25 mg by mouth every 6 hours as needed for Itching. FLUTICASONE (FLONASE) 50 MCG/NASAL SPRAY 1 spray by Nasal route Daily. HYDROXYZINE (ATARAX) 50 MG TABLET Take 25 mg by mouth as needed. IBUPROFEN (ADVIL, MOTRIN) 200 MG TABLET Take 200 mg by mouth every 6 hours as needed. 27-0.8 MG MULTIVITAMIN TABLET Take 2 tablets by mouth Daily. Gummies. SERTRALINE (ZOLOFT) 50 MG TABLET Take 25 mg by mouth Daily. ALLERGIES Allergies Allergen Reactions Rey Flavor Hives Nystatin Swelling Omeprazole Shortness Of Breath Penicillins Hives and Nausea And Vomiting Sulfa Antibiotics Shortness Of Breath Venlafaxine Anaphylaxis Aspirin Other (See Comments) fever Fish Oil Whooping cough injection/ extreme reaction Nitrofuran Derivatives Nausea And Vomiting Penicillins FAMILY AND SOCIAL HISTORY Family History Problem Relation Age of [...] Hx Seizures Neg Hx Sudden Neg Hx Social History Social History Marital status: Single [...] bio mom and m-grandmother REVIEW OF SYSTEMS Review of Systems Constitutional: Negative for chills and fever. Cardiovascular: Negative for chest pain. Gastrointestinal: Positive for abdominal pain and diarrhea. Genitourinary: Positive for dysuria and urgency. As in history of present illness. A 10 system review was otherwise negative. PHYSICAL EXAM VITAL SIGNS: (first vital signs):Temp: 37 C (98.6 F) Pulse: 86 Resp: 18 SpO2: 99 % BP: 120/84 Body mass index is 19.39 kg/m. Constitutional: female patient, No acute distress. Pleasant. Alert and appropriate. HEENT: Atraumatic, PERRL, Oropharynx benign. Neck: Supple with full range of motion. No JVD, lymphadenopathy, or meningismus. Respiratory: Good air movement bilaterally. No wheezes, No, rales. Cardiovascular: Normal S1 S2. No rubs or murmurs Abdomen: Soft, nontender. No rebound, guarding, or masses. Bowel tones normal. No pulsa tile masses Back: No CVA tenderness. No midline thoracic or lumbar spinal tenderness. Extremities: Nontender. No edema, no calf asymmetry. Present distal pulses. Skin: Warm, Dry, No rashes. Capillary refill is brisk <3 seconds and shows good perfusion . Neurologic: Alert & oriented. Cranial nerves II-XII intact. Gait and speech are normal. No focal deficits. Psychiatric: Normal mood, affect and judgement. No evidence of suicidal or homicidal idea tion LABS Results for orders placed or performed during the hospital encounter of 04/22/17 CBC w/ Auto Differential Result Value Ref Range WBC 11.5 (H) 4.0 - 11.0 K/uL RBC 4.13 3.70 - 5.20 M/uL Hgb 12.6 11.5 - 16.0 g/dL Hct 36.7 34.0 - 47.0 % MCV 89.0 83.0 - 101.0 fL MCH 30.5 28.0 - 35.0 pg MCHC 34.3 32.0 - 36.0 g/dL RDW-CV 12.9 <15.0 % Platelet Count 302 140 - 440 K/uL MPV 7.6 fL % Neutrophils 61.6 45.0 - 82.0 % % Lymphocytes 22.9 20.0 - 45.0 % % Monocytes 7.9 4.0 - 12.0 % % Eosinophils 6.4 (H) 0.0 - 5.0 % % Basophils 1.2 (H) 0.0 - 1.0 % Absolute Neutrophils 7.10 1.80 - 8.50 K/uL Absolute Lymphocytes 2.60 0.60 - 3.20 K/uL Absolute Monocytes 0.90 0.00 - 1.00 K/uL Absolute Eosinophils 0.70 (H) 0.00 - 0.40 K/uL Absolute Basophils 0.10 0.00 - 0.10 K/uL Comprehensive Metabolic Panel Result Value Ref Range NA 140 136 - 149 mmol/L K 3.7 3.5 - 5.1 mmol/L CL 103 98 - 109 mmol/L CO2 22 (L) 24 - 31 mmol/L ANION GAP 15 3 - 16 mmol/L GLUCOSE 88 70 - 109 mg/dL BUN 6 (L) 7 - 18 mg/dL Creatinine, Serum/Plasma 0.46 (L) 0.60 - 1.30 mg/dL eGFR if not >60 >=60 mL/min/1.73m2 CALCIUM 8.3 8.3 - 10.5 mg/dL ALBUMIN 3.2 3.2 - 5.0 g/dL BILIRUBIN TOTAL 0.4 0.1 - 1.5 mg/dL Total protein 6.2 6.0 - 7.8 g/dL AST 21 10 - 42 U/L ALT 22 6 - 45 U/L ALK PHOS 46 40 - 110 U/L GLOBULIN 3.0 2.1 - 3.8 g/dL Albumin/Globulin ratio 1.1 0.8 - 2.0 BUN/CREA 13.0 Urinalysis with Microscopic with Culture if Indicated Result Value Ref Range COLOR Straw Light Yellow, Yellow, Straw CLARITY Clear Clear PH UA 6.0 5.0 - 8.0 Specific Jones 1.005 1.001 - 1.030 PROTEIN UA Negative Negative BLOOD UA Negative Negative GLUCOSE UA Negative Negative KETONES UA Negative Negative BILIRUBIN UA Negative Negative NITRITE UA Negative Negative LEUKOCYTES ESTERASE UA Negative Negative UROBILINOGEN UA Negative 0.2 mg/dL, 1.0 mg/dL, Negative WBC UA 0-2 0 - 2 /HPF RBC UA 0-2 0 - 2 /HPF SQUAMOUS EPITHELIAL UA 2-5 (A) 0 - 2 /LPF BACTERIA UA Negative Negative /HPF MUCUS UA Present (A) Negative /LPF Extra Gold Top Tube Result Value Ref Range EGDT Done IMAGING STUDIES (X-Rays interpreted by ED Physician) Recent imaging: No results found for this or any previous visit (from the past 360 hour(s)). ED COURSE & MEDICAL DECISION MAKING Pertinent Labs & Imaging studies were reviewed along with EMS notes and alf record s if applicable. (See chart for details) Medications and Allergy list reviewed. Nurses note and old records were reviewed ER course 5:50 - Patient care initiated. After introducing myself to the patient, I performed a care ful history and physical examination. Patient with abdominal cramping and . She is worried she may have an ovarian cyst . This is certainly possible. Also she may have a UTI or a complication of 08:15. Ultrasound is normal. No signs of structural abnormalities of the uterus or develo ping . is progressing as would be expected. We will discharge home and have her FU with the coil shaper Last Set of Vital Signs: Temp: 37 C (98.6 F) Pulse: 86 Resp: 18 SpO2: 99 % BP: 120/84 FINAL IMPRESSION 1. Pelvic pain in Disposition: Discharge home Condition: Stable Discharge References/Attachments PELVIC PAIN IN : UNCLEAR (2-3 TRIMESTER) ([place]) Portions of this chart may have been created with Platter voice recognition software. Occasi onal wrong-word or sound-alike substitutions may have occurred due to the inherent gonsalez itations of voice recognition software. Please read the chart carefully and recognize, using context, where these substitutions have occurred. Tam Denney MD 04/22/17 0826 documented in this e ncounter Miscellaneous Notes ED Triage Notes - Yazan Martines, NENA - 04/22/2017 5:43 AM PDTPt reports generalized ab dominal pain beginning this AM. 15 weeks documented in this encounter Plan of Treatment [...] | | | | | [place] [address] | | | | | | [phone] | | | | | | | | +--------+ + + + + | 09/22/ | Office | Physical Medicine | Gonzalo Merchant, | | 2019 | Visit | and Rehabilitation | MD [address] | | | | | | [place] | | | | | | [address] | | | | | | | | +--------+ + + + + | 09/29/ | Virtual | Pain Medicine | Peggy Arreola | | | 2019 | Office | | [address] | | | | Visit | | [address] | | | | | | [place] | | | | | | [place] [address] | | | | | | [phone] | | | | | | | | +--------+ + + + + | 01/24/ | Office | Family Medicine | Kurt Campbell, | | | 2020 | Visit | | DO [address] | | | | | | [place] | | | | | | [address] | | | | | | | | +--------+ + + + + + +------+--------+ + + | Name | Type | Priori | Associated Diagnoses | Date/Time | | | | ty | | | + +------+--------+ + + | ED INFORMATION | FRANDY | Routin | | 04/22/2017 5:43 AM | | EXCHANGE | | e | | PDT | + +------+--------+ + + documented as of this encounter Procedures + +--------+ + + + | Procedure Name | Priori | Date/Time | Associated Diagnosis | Comments | | | ty | | | | + +--------+ + + + | US OB 14 + WEEKS W | STAT | 04/22/2017 | | Results for this | | TRANSVAGINAL | | 8:30 AM | | procedure are in the | | | | PDT | | results section. | + +--------+ + + + | URINALYSIS WITH | STAT | 04/22/2017 | | Results for this | | MICROSCOPIC WITH | | 6:32 AM | | procedure are in the | | CULTURE IF INDICATED | | PDT | | results section. | + +--------+ + + + | CBC W/AUTO | STAT | 04/22/2017 | | Results for this | | DIFFERENTIAL | | 6:10 AM | | procedure are in the | | | | PDT | | results section. | + +--------+ + + + | EXTRA GOLD TOP TUBE | Routin | 04/22/2017 | | Results for this | | | e | 6:10 AM | | procedure are in the | | | | PDT | | results section. | + +--------+ + + + | COMPREHENSIVE | STAT | 04/22/2017 | | Results for this | | METABOLIC PANEL | | 6:10 AM | | procedure are in the | | | | PDT | | results section. | + +--------+ + + + | ED INFORMATION | Routin | 04/22/2017 | | | | EXCHANGE | e | 5:43 AM | | | | | | PDT | | | + +--------+ + + + documented in this encounter Results US OB 14 + Weeks W Transvaginal (04/22/2017 8:30 AM PDT) + + | Specimen | + + | | + + + + + | Narrative | Performed At | + + + | US OB 14 + WEEKS W TRANSVAGINAL 04/22/2017 7:53 AM HISTORY: | [facility] | | ABDOMINAL PAIN (). COMPARISON: None. PROTOCOL: Guajardo | | | scale and Doppler images of the fetus with transabdominal imaging. | | | FINDINGS: The LMP is unknown. Based on a prior ultrasound, the | | | estimated gestational age is 15 weeks 0 days. Estimated delivery date | | | is 10/14/2017. BPD: 2.6 cm, 14 weeks 5 days FL: 1.5 cm, 14 weeks | | | 4 days HC: 9.8 cm, 14 weeks 5 days AC: 8.1 cm, 14 weeks 4 days | | | OFD: 3.6 cm Cephalic index: 73 (normal range 70.0-86.0) EFW: 99 g, | | | LMP percentile 11% HC/AC ratio: 1.2 heart rate: 165 bpm, with | | | a normal cardiac rhythm. A single gestation is seen. The cervix is | | | closed, measuring 2.5 cm in length, which is shortened. Placenta | | | previa is absent. position: Cephalic Placental position: | | | Anterior, no evidence for abruption. Amniotic fluid: Normal | | | Anatomy: The stomach and bladder are normal. Choroid plexus is | | | normal. Estimated gestational age by ultrasound: 14 weeks 5 days. | | | IMPRESSION - Single live fetus, growth concordant with dates. No | | | evidence for placental abruption. Cervical length measuring 2.5 | | | cm, which is shortened and places the patient at risk for cervical | | | incompetence. CLERK ENTRY LEVEL follow-up is recommended with continued imaging | | | follow-up. Dictated and Signed by: Blaise Crawford MD | | | Electronically signed: 04/22/2017 1:12 PM | | + + + + + | Procedure Note | + + | Shaun, Rad Results In - 04/22/2017 1:15 PM PDT US OB 14 + WEEKS W TRANSVAGINAL | | 04/22/2017 7:53 AM HISTORY: ABDOMINAL PAIN ().COMPARISON: None.PROTOCOL: Guajardo | | scale and Doppler images of the fetus with transabdominalimaging.FINDINGS:The LMP is | | unknown. Based on a prior ultrasound, the estimated gestational ageis 15 weeks 0 days. | | Estimated delivery date is 10/14/2017.BPD: 2.6 cm, 14 weeks 5 daysFL: 1.5 cm, 14 weeks 4 | | daysHC: 9.8 cm, 14 weeks 5 daysAC: 8.1 cm, 14 weeks 4 daysOFD: 3.6 cmCephalic index: 73 | | (normal range 70.0-86.0)EFW: 99 g, LMP percentile 11%HC/AC ratio: 1.2Fetal heart rate: | | 165 bpm, with a normal cardiac rhythm.A single gestation is seen.The cervix is closed, | | measuring 2.5 cm in length, which is shortened. Placenta previa is absent. | | position: CephalicPlacental position: Anterior, no evidence for abruption.Amniotic | | fluid: NormalFetal Anatomy:The stomach and bladder are normal.Choroid plexus is | | normal.Estimated gestational age by ultrasound: 14 weeks 5 days.IMPRESSION -Single live | | fetus, growth concordant with dates.No evidence for placental abruption.Cervical length | | measuring 2.5 cm, which is shortened and places the patient atrisk for cervical | | incompetence. CLERK ENTRY LEVEL follow-up is recommended with continuedimaging follow-up.Dictated | | and Signed by: Blaise Crawford MD Electronically signed: 04/22/2017 1:12 PM | |AC: 8.1 cm, 14 weeks 4 days | |OFD: 3.6 cm | |Cephalic index: 73 (normal range 70.0-86.0) | |EFW: 99 g, LMP percentile 11% | |HC/AC ratio: 1.2 | | heart rate: 165 bpm, with a normal cardiac rhythm. | |A single gestation is seen. | |The cervix is closed, measuring 2.5 cm in length, which is shortened. | |Placenta previa is absent. | | | | position: Cephalic | |Placental position: Anterior, no evidence for abruption. | |Amniotic fluid: Normal | | | | Anatomy: | |The stomach and bladder are normal. | |Choroid plexus is normal. | |Estimated gestational age by ultrasound: 14 weeks 5 days. | | | |IMPRESSION - | |Single live fetus, growth concordant with dates. | | | |No evidence for placental abruption. | | | |Cervical length measuring 2.5 cm, which is shortened and places the patient at | |risk for cervical incompetence. CLERK ENTRY LEVEL follow-up is recommended with continued | |imaging follow-up. | | | |Dictated and Signed by: Blaise Crawford MD | | Electronically signed: 04/22/2017 1:12 PM | + + + +---------+ + + | Performing | Address | City/State/Zipcode | Phone Number | | Organization | | | | + +---------+ + + | [facility] | | | | + +---------+ + + Urinalysis with Microscopic with Culture if Indicated (04/22/2017 6:32 AM PDT) + + + + + + | Component | Value | Ref Range | Performed | Pathologist | | | | | At | Signature | + + + + + + | Color, | Straw | Light Yellow, | [facility] | | | Urine | | Yellow, Straw | [facility] | | | | | | [facility] | | | | | | [facility] - | | | | | | LABORATORY | | + + + + + + | Clarity, | Clear | Clear | [facility] | | | Urine | | | [facility] | | | | | | [facility] | | | | | | [facility] - | | | | | | LABORATORY | | + + + + + + | pH, Urine | 6.0 | 5.0 - 8.0 | [facility] | | | | | | [facility] | | | | | | [facility] | | | | | | [facility] - | | | | | | LABORATORY | | + + + + + + | Specific | 1.005 | 1.001 - 1.030 | [facility] | | | Jones, | | | [facility] | | | Urine | | | MEDICAL | | | | | | CENTER - | | | | | | LABORATORY | | + + + + + + | Protein, | Negative | Negative | [facility] | | | Urine | | | [facility] | | | | | | MEDICAL | | | | | | CENTER - | | | | | | LABORATORY | | + + + + + + | Blood, | Negative | Negative | [facility] | | | Urine | | | [facility] | | | | | | MEDICAL | | | | | | CENTER - | | | | | | LABORATORY | | + + + + + + | Glucose, | Negative | Negative | [facility] | | | Urine | | | [facility] | | | | | | [facility] | | | | | | CENTER - | | | | | | LABORATORY | | + + + + + + | Ketones, | Negative | Negative | [facility] | | | Urine | | | [facility] | | | | | | [facility] | | | | | | [facility]ENTER - | | | | | | LABORATORY | | + + + + + + | Bilirubin, | Negative | Negative | [facility] | | | Urine | | | [facility] | | | | | | [facility]ICAL | | | | | | CENTER - | | | | | | LABORATORY | | + + + + + + | Nitrite, | Negative | Negative | [facility] | | | Urine | | | [facility] | | | | | | [facility] | | | | | | CENTER - | | | | | | LABORATORY | | + + + + + + | Leukocyte | Negative | Negative | [facility] | | | Esterase, | | | [facility] | | | Urine | | | MEDICAL | | | | | | CENTER - | | | | | | LABORATORY | | + + + + + + | Urobilinoge | Negative | 0.2 mg/dL, 1.0 | [facility] | | | n, Urine | | mg/dL, Negative | [facility] | | | | | | MEDICAL | | | | | | CENTER - | | | | | | LABORATORY | | + + + + + + | White Blood | 0-2 | 0 - 2 /HPF | [facility] | | | Cells, | | | [facility] | | | Urine | | | MEDICAL | | | | | | CENTER - | | | | | | LABORATORY | | + + + + + + | Red Blood | 0-2 | 0 - 2 /HPF | [facility] | | | Cells, | | | [facility] | | | Urine | | | MEDICAL | | | | | | CENTER - | | | | | | LABORATORY | | + + + + + + | Squamous | 2-5 (A) | 0 - 2 /LPF | [facility] | | | Epithelial | | | [facility] | | | Cells, | | | MEDICAL | | | Urine | | | CENTER - | | | | | | LABORATORY | | + + + + + + | Bacteria, | Negative | Negative /HPF | [facility] | | | Urine | | | [facility] | | | | | | MEDICAL | | | | | | CENTER - | | | | | | LABORATORY | | + + + + + + | Mucus, | Present (A) | Negative /LPF | [facility] | | | Urine | | | [facility] | | [...] ST. | [address] | [place] | [phone] | | [facility] | | [address] | | | - LABORATORY | | | | + + + + + Extra Gold Top Tube (04/22/2017 6:10 AM PDT) + +-------+ + + + | Component | Value | Ref Range | Performed | Pathologist | | | | | At | Signature | + +-------+ + + + | Extra Gold | Done | | [facility] | | | Top Tube | | | [facility] | | [...] [address] | [place] | [phone] | | [facility] | | [address] | | | - LABORATORY | | | | + + + + + Comprehensive Metabolic Panel (04/22/2017 6:10 AM PDT) + + + + + + | Component | Value | Ref Range | Performed | Pathologist | | | | | At | Signature | + + + + + + | Na | 140 | 136 - 149 | [facility] | | | | | mmol/L | [facility] | | | | | | MEDICAL | | | | | | CENTER - | | | | | | LABORATORY | | + + + + + + | K | 3.7 | 3.5 - 5.1 | [facility] | [...] + + + + | CO2 | 22 (L) | 24 - 31 mmol/L | [facility] | | | | | | [facility] | [facility] | [facility] | | | | | | CENTER - | | | | | | LABORATORY | | + + + + + + | Anion Gap | 15 | 3 - 16 mmol/L | [facility] | | | | | | [facility] | | | | | | MEDICAL | | | | | | CENTER - | | | | | | LABORATORY | | + + + + + + | Glucose | 88 | 70 - 109 mg/dL | [facility] | | | | | | [facility] | | | | | | [facility]ICAL | | | | | | CENTER - | | | | | | LABORATORY | | + + + + + + | BUN | 6 (L) | 7 - 18 mg/dL | [facility] | | [facility] | | | | | | [facility] | | | | | | CENTER - | | | | | | LABORATORY | | + + + + + + | Creatinine | 0.46 (L) | 0.60 - 1.30 | [facility] | | | | | mg/dL | [facility] | | | | | | MEDICAL | | | | | | CENTER - | | | | | | LABORATORY | | + + + + + + | eGFR, | >60Comment: GLOMERULAR | >=60 | [facility] | | | non- | FILTRATION | mL/min/1.73m2 | [facility] | | | [place] | RATE,ESTIMATED | | MEDICAL | | | | mL/min/1.77p0Xlkr than | | CENTER - | | [...] + + + + | Calcium | 8.3 | 8.3 - 10.5 | [facility] | | | | | mg/dL | [facility] | | | | | | MEDICAL | | | | | | CENTER - | | | | | | LABORATORY | | + + + + + + | Albumin | 3.2 | 3.2 - 5.0 g/dL | [facility] | | | | | | [facility] | | | | | | MEDICAL | | | | | | CENTER - | | | | | | LABORATORY | | + + + + + + | Bilirubin | 0.4 | 0.1 - 1.5 mg/dL | [facility] | | | Total | | | [facility] | | | | | | MEDICAL | | | | | | CENTER - | | | | | | LABORATORY | | + + + + + + | Total | 6.2 | 6.0 - 7.8 g/dL | [facility] | | | Protein | | | [facility] | | | | | | MEDICAL | | | | | | CENTER - | | | | | | LABORATORY | | + + + + + + | AST | 21 | 10 - 42 U/L | [facility] | | | | | | [facility] | | | | | | MEDICAL | | | | | | CENTER - | | | | | | LABORATORY | | + + + + + + | ALT | 22 | 6 - 45 U/L | [facility] | | | | | | [facility] | | | | | | MEDICAL | | | | | | CENTER - | | | | | | LABORATORY | | + + + + + + | Alkaline | 46 | 40 - 110 U/L | [facility] | | | Phosphatase | | | [facility] | | | | | | MEDICAL | | | | | | CENTER - | | | | | | LABORATORY | | + + + + + + | Globulin | 3.0 | 2.1 - 3.8 g/dL | [facility] [...] + + + + | BUN/Creatin | 13.0 | | [facility] | | | ine [...] [address] | [place] | [phone] | | [facility] | | [address] | | | - LABORATORY | | | | + + + + + CBC w/ Auto Differential (04/22/2017 6:10 AM PDT) + + + + + + | Component | Value | Ref Range | Performed | Pathologist | | | | | At | Signature | + + + + + + | White Blood | 11.5 (H) | 4.0 - 11.0 K/uL | [facility] | | | Cells | | | [facility] | | | | | | MEDICAL | | | | | | CENTER - | | | | | | LABORATORY | | + + + + + + | Red Blood | 4.13 | 3.70 - 5.20 | [facility] | | | Cells | | M/uL | [facility] | | | | | | MEDICAL | | | | | | CENTER - | | | | | | LABORATORY | | + + + + + + | Hemoglobin | 12.6 | 11.5 - 16.0 | [facility] | | | | | g/dL | [facility] | | | | | | MEDICAL | | | | | | CENTER - | | | | | | LABORATORY | | + + + + + + | Hematocrit | 36.7 | 34.0 - 47.0 % | [facility] | | | | | | [facility] | | | | | | MEDICAL | | | | | | CENTER - | | | | | | LABORATORY | | + + + + + + | MCV | 89.0 | 83.0 - 101.0 fL | [facility] | | | | | | [facility] | | | | | | MEDICAL | | | | | | CENTER - | | | | | | LABORATORY | | + + + + + + | MCH | 30.5 | 28.0 - 35.0 pg | [facility] | | | | | | [facility] | | | | | | [facility] | | | | | | CENTER - | | | | | | LABORATORY | | + + + + + + | MCHC | 34.3 | 32.0 - 36.0 | [facility] | | | | | g/dL | [facility] | | | | | | MEDICAL | | | | | | CENTER - | | | | | | LABORATORY | | + + + + + + | RDW-CV | 12.9 | <15.0 % | [facility] | | | | | | [facility] | | | | | | [facility] | | | | | | [facility] - | | | | | | LABORATORY | | + + + + + + | Platelet | 302 | 140 - 440 K/uL | [facility] | | | Count | | | [facility] | | | | | | [facility] | | | | | | [facility] - | | | | | | LABORATORY | | + + + + + + | MPV | 7.6 | fL | [facility] | | | | | | [facility] | | | | | | [facility] | | | | | | [facility] - | | | | | | LABORATORY | | + + + + + + | % | 61.6 | 45.0 - 82.0 % | [facility] | | | Neutrophils | | | [facility] | | | | [facility] | [facility] - | | | | | | LABORATORY | | + + + + + + | % | 22.9 | 20.0 - 45.0 % | [facility] | | | Lymphocytes | | | [facility] | [facility] | [facility] | | | | | | [facility] - | | | | | | LABORATORY | | + + + + + + | % Monocytes | 7.9 | 4.0 - 12.0 % | [facility] | | | | | | [facility] | | [facility] | | | | | | [facility] - | | | | | | LABORATORY | | + + + + + + | % | 6.4 (H) | 0.0 - 5.0 % | [facility] | | | Eosinophils | | | [facility] | [facility] | | | | | | CENTER - | | | | | | LABORATORY | | + + + + + + | % Basophils | 1.2 (H) | 0.0 - 1.0 % | [facility] | | | | | | [facility] | [facility] | | | | | | [facility] - | | | | | | LABORATORY | | + + + + + + | Absolute | 7.10 | 1.80 - 8.50 | [facility] | | | Neutrophils | | K/uL | [facility] | [facility] | [facility] | | | | | | CENTER - | | | | | | LABORATORY | | + + + + + + | Absolute | 2.60 | 0.60 - 3.20 | [facility] | | | Lymphocytes | | K/uL | [facility] | | | | | | [facility] | | | | | | CENTER - | | | | | | LABORATORY | | + + + + + + | Absolute | 0.90 | 0.00 - 1.00 | [facility] | | | Monocytes | | K/uL | [facility] | | | | [facility] | [facility] | | | | | | [facility]ENTER - | | | | | | LABORATORY | | + + + + + + | Absolute | 0.70 (H) | 0.00 - 0.40 | [facility] | | | Eosinophils | | K/uL | [facility] | [facility] | | | | | | [facility] - | | | | | | LABORATORY | | + + + + + + | Absolute | 0.10 | 0.00 - 0.10 | [facility] | | | Basophils | | K/uL | [facility] | | | | [...] ST. | [address] | [place] | [phone] | | [facility] | | [address] | | | - LABORATORY | | | | + + + + + documented in this encounter Visit Diagnoses + + | Diagnosis | + + | Pelvic pain in - Primary Other specified complication of , | | unspecified as to episode of care | + + documented in this encounter
--- OUTSIDE RECORDS SUMMARY | ~2020-09-05 | XMS | Encounter Summary ---
Demographics + + + | Address | [address] | | | [place] [address] | + + + | Home Phone | | + + + | Preferred Language | Unknown | + + + | Marital Status | Single | + + + | Latter-Day Affiliation | 1059 | + + + | Race | Unknown | + + + | Ethnic Group | Not or | + + + Author + + + | Author | [facility] | | | and [place] | + + + | Organization | [facility] | | | and [place] | + + + | Address | Unknown | + + + | Phone | Unavailable | + + + Support + + + + + | Name | Relationship | Address | Phone | + + + + + | Michael De La Cruz | ECON | [address] | | | | | [place] [address] | | + + + + + | Concha Paulino | ECON | [address] | | | | | [place] [address] | | + + + + + Care Team Providers + +------+ + | Care Crane Man Name | Role | Phone | + +------+ + | No, Physician | PCP | Unavailable | + +------+ + Encounter Details +--------+ + + + + | Date | Type | Department | Care Team | Description | +--------+ + + + + | 09/20/ | Hospital | [facility] | Tomeka Gomez | | | 2017 - | Encounter | [facility] | Fatimah Peralta DO | | | | | DELIVERY IP [address] | [address] | | | 09/21/ | | [place], | [place], [place] | | | 2016 | | [place] [address] | [address] | | | | | [phone] | | | +--------+ + + + [...] + + + | Blood Pressure | 112/73 | 09/21/2017 7:50 AM | | | | | PDT | | + + + + + | Pulse | 90 | 09/21/2017 7:50 AM | | | | | PDT | | + + + + + | Temperature | 36.8 C (98.2 F) | 09/21/2017 7:50 AM | | | | | PDT | | + + + + + | Respiratory Rate | 16 | 09/21/2017 7:50 AM | | | | | PDT | | + + + + + | Oxygen Saturation | 96% | 09/21/2017 7:50 AM | | | | | PDT | | + + + + + | Inhaled Oxygen | - | - | | | Concentration | | | | + + + + + | Weight | - | [...] as of this encounter Discharge Instructions Instructions Charla Kulkarni RN - 09/21/2017Discharge Education for the Undelivered Jenifer ent You can use the following list as a guide to help you know when to call your provider or re turn to the hospital. Labor Contractions (labor pains) every 5 minutes or less, lasting 60 seconds or more Contractions become stronger Bag of pineda broken or leaking fluid from the vagina Labor (more than 3 weeks before your due date) Contractions (labor pains) that occur more than 4 times per hour (every 15 minutes), la sting 30 seconds or more, for 2 hours Backache or pelvic pressure Bag of pineda broken or leaking fluid from the vagina Movement Counting Starting at 7 months (28 weeks) Decreased (less than 10 movements in 2 hours) Other Reasons to Call Constant headache Changes in vision Sudden increase in swelling, especially rapid weight gain chiefly in your face and/ or hands Constant abdominal (belly) pain Bright red vaginal bleeding or passing enough clots to need a pad Temperature over 100.4 (38 C) documented in this encounter Medications at Time [...] + + + +---------+ + + | docusate sodium | Take 200 mg by mouth | 60 | 1 | 09/25/20 | | | (COLACE) 100 MG | nightly. | capsule | | 17 | 8 | | capsule | | | | | | + + + +---------+ + + | ferrous sulfate | Take 325 mg by mouth | | 0 | | | | 325 mg tablet | daily (with | | | | 8 | | | breakfast). | | | | | + + [...] + + +---------+ + + | ibuprofen | Take 1 tablet by | 40 | 0 | 09/25/20 | | | (ADVIL,MOTRIN) 600 | mouth every 6 hours | tablet | | 17 | 8 | | MG tablet | as needed for Pain. | | | | [...] documented as of this encounter Progress Notes Adalberto Monsalve MD - 09/21/2017 7:49 AM PDT Labor & Delivery Triage Note Renny Saravia is a 17 y.o. at 36w5d Reason for evaluation: contractions, observed overnight Subjective: Patient reports that contractions have subsided, still has the occasional contraction but n ot as frequent or painful as before. No other complaints currently. Was able to sleep through the night. Objective Vitals: 09/21/17 0701 BP: Pulse: Resp: 16 Temp: General: no acute distress Abdomen: gravid non-tender FHR Assessment Baseline: 125-130 Variability: moderate Accels: present Decels: absent CAT: 1 Plain View: 1 in 10 minutes irregular VAGINAL Exam On arrival patient was 3cm/70% and -2 Patient made interval change to 4 cm dilation but has stabilized since last exam. Cervical exam unchanged overnight. BSUS Vertex, anterior/right placenta, MVP 4 cm Assessment: 17 y.o. 36w5d Late contractions with small cervical change, however now stable at 4 cm without ch madison overnight Contractions have subsided. Reassuring status Plan: DC home Strict labor precautions given Follow up in in clinic as previously scheduled Electronically Signed by: Adalberto Monsalve MD 09/21/2017 7:49 Adalberto Perdue MD - 09/20/2017 11:29 PM PDTFormatting of this note might be differe nt from the original. Labor & Delivery Triage Note Renny Saravia is a 17 y.o. at 36w4d Reason for evaluation: contractions Subjective: Patient presents due to contractions. Contractions are reported as mild to moderate pain. Patient reports active movements. Denies leaking or bleeding. Denies headache, visual changes, epigastric pain or excessive swelling. Objective Vitals: 09/20/171999 BP: 125/81 Pulse: 94 Resp: 18 Temp: General: no acute distress Abdomen: gravid non-tender FHR Assessment Baseline: 135 Variability: moderate Accels: present Decels: absent CAT: 1 Plain View: 1-3 in 10 minutes irregular VAGINAL Exam On arrival patient was 3cm/70% and -2 Patient made interval change to 4 cm dilation but has stabilized since last exam. Assessment: 17 y.o. 36w4d Late contractions with small cervical change, currently stable. Reassuring status Plan: Will observe overnight for labor Continue with hydration Continue monitoring Electronically Signed by: Adalberto Monsalve MD 09/20/2017 23:29 lanquita Singh RN - 09/20/2017 4:21 PM PDTPt talking through UC's. SVE, no change from AM offic e check. called. Requests to observe pt x 1 more hour then recheck. documented in this e ncounter Miscellaneous Notes OB Triage Notes - Charla Kulkarni RN - 09/21/2017 7:45 AM Kellie Monsalve at bedside. Patie nt reports UCs have stopped. Discharge precautions gone over with patient. SL removed intact . Then home with SO. Plan of Thang Smith RN - 09/21/2017 7:10 AM PDTReport given to Charla Dumont RN . Care endorsed. l an of Thang Smith RN - 09/21/2017 6:05 AM PDTProblem: Patient Care Overview (Adult) Goal: Care Team Goals & Evaluation PROBLEM-RELATED GOALS: Pt's pain will be at tolerable level per pt by 09/21/17. Pt will remain until term gestation. Pt will remain free from falls throughout hospital stay. Pt will remain free from infection throughout hospital stay. STRATEGY TO ACHIEVE GOALS: VS will be monitored per protocol. Pt will remain hydrated with fluids PO/IV as ordered. Pa in will be assessed with appropriate pain scale, and managed with prn pain meds and non-phar macological techniques. FHT will be monitored as ordered. Non-slip socks will be given and safety instructions aki l be given to prevent falls. Belongings and call light will remain in reach. RESTRAINT-RELATED GOALS: STRATEGIES TO ACHIEVE RESTRAINT GOALS: Outcome: Improving Goal Evaluation: VSS. FHT category 1 throughout the shift. UCs have spaced out. Pt does not appear to be i n labor at this time as there as been no cervical change. Pt is now resting comfortably. lan of Thang Perez RN - 09/21/2017 5:45 AM PDTPt has been sleeping the last half of the adriana ft, comfortably as her UCs have spaced out and are mild. Cat. 1 strip maintained. Occ MHR r egistering on strip d/t maternal position changes. No cervical change noted during shift. Spotting has reduced and is scant to light. VSS. Pt has remained on PO hydration. SL intac t. Will consult with MD about possible discharge as labor has been ruled out. lan of Thang Smith RN - 09/20/2017 10:25 PM PDTPt requesting to ambulate. EFM/TOCO removed. FHT were reac tive no decels noted. Irregular contractions. Pt breathing through pain. No meds at this michael e per pt. Note that occasional MHR (90-100) registering on strip as pt intermittently sitti ng up in high fowlers. lan of Thang Smith RN - 09/20/2017 8:03 PM PDTPt requesting to ambulat e off monitors. EFM/TOCO removed. IV bolus complete. IV saline locked. Ok by Dr Monsalve.Elec tronically signed by Thang Vyas RN at 09/20/2017 8:03 PM PDTPlan of Thang Smalls RN - 09/20/2017 7:10 PM PDTReport received from Annalisa BARRETT. Care assumed.El ectronically signed by Thang Vyas RN at 09/20/2017 7:37 PM PDTPlan of Khai Agarwal RN - 09/20/2017 3:09 PM PDTTo room 364, eFM and TOCO placed. Pt states she thompson s been feeling some cramping this afternoon starting around 14:00 pm. Denies any vaginal bl eeding or leakage of fluid. 3:1 1 PM PDTdocumented in this encounter Plan of [...] [place] | | | | | | [place] [address] | | | | | | [phone] | | | | | | | | +--------+ + + + + | 09/22/ | Office | Physical Medicine | Gonzalo Merchant | | | 2019 | Visit | and Rehabilitation | [address] | | | | | | [place], [place] | | | | | | [address] | | | | | | | | +--------+ + + + + | 09/29/ | Virtual | Pain Medicine | Peggy Arreola | | | 2019 | Office | | [address] | | | | Visit | | [place] | | | | | | [place], | | | | | | [place] [address] | | | | | | [phone] | | | | | | | | +--------+ + + + + | 01/24/ | Office | Family Medicine | Kurt Campbell, | | | 2020 | Visit | | DO [address] | | | | | | [place] | | | | | | [address] | | | | | | | | +--------+ + + + + documented as of this encounter Procedures + +--------+ + + + | Procedure Name | Priori | Date/Time | Associated Diagnosis | Comments | | | ty | | | | + +--------+ + + + | CBC WITH | Routin | 09/20/2017 | | Results for this | | DIFFERENTIAL | e | 5:57 PM | | procedure are in the | | | | PDT | | results section. | + +--------+ + + + | TYPE AND SCREEN | Routin | 09/20/2017 | | Results for this | | | e | 5:57 PM | | procedure are in the | | | | PDT | | results section. | + +--------+ + + + | C. TRACHOMATIS AND | Routin | 03/11/2017 | | Results for this | | N. GONORRHOEAE AND | e | | | procedure are in the | | T. VAGINALIS, NAAT | | | | results section. | + +--------+ + + + | C. TRACHOMATIS AND | Routin | 03/11/2017 | | Results for this | | N. GONORRHOEAE, NAAT | e | | | procedure are in the | | | | | | results section. | + +--------+ + + + | ABO RH | Routin | 03/11/2017 | | Results for this | | | e | | | procedure are in the | | | | | | results section. | + +--------+ + + + | RUBELLA AB, IGG | Routin | 03/11/2017 | | Results for this | | | e | | | procedure are in the | | | | | | results section. | + +--------+ + + + | RAPID PLASMA REAGIN, | Routin | 03/11/2017 | | Results for this | | QUAL | e | | | procedure are in the | | | | | | results section. | + +--------+ + + + | HIV 1 AND 2 AB, | Routin | 03/11/2017 | | Results for this | | REFLEX | e | | | procedure are in the | | | | | | results section. | + +--------+ + + + | HEPATITIS B SURFACE | Routin | 03/11/2017 | | Results for this | | AG | e | | | procedure are in the | | | | | | results section. | + +--------+ + + + | ANTIBODY SCREEN | Routin | 03/11/2017 | | Results for this | | | e | | | procedure are in the | | | | | | results section. | + +--------+ + + + documented in this encounter Results Type and Screen (09/20/2017 5:57 PM PDT) + + + + + + | Component | Value | Ref Range | Performed | Pathologist | | | | | At | Signature | + + + + + + | ABO | A | | [facility] | | | | | | [facility] | | | | | | [facility] | | | | | | [place] - | | | | | | BLOOD BANK | | + + + + + + | Rh Type | Positive | | [facility] | | | | | | [facility] | [facility] | [facility] | | | | | | [facility] - | | | | | | BLOOD BANK | | + + + + + + | Antibody | Negative | | [facility] | | | Screen | | | [facility] | | | | | | [facility] | | | | | | CENTER - | | | | | | BLOOD BANK | | + + + + + + + + | Specimen | + + | Blood | + + + + + + + | Performing | Address | City/State/Zipcode | Phone Number | | Organization | | | | + + + + + | [facility] | [address] | [place] | | | [facility] | | [address] | | | - BLOOD BANK | | | | + + + + + CBC with Differential (09/20/2017 5:57 PM PDT) + + + + + + | Component | Value | Ref Range | Performed | Pathologist | | | | | At | Signature | + + + + + + | White Blood | 17.1 (H) | 4.0 - 11.0 K/uL | [facility] | | | Cells | | | [facility] | [facility] | | [facility] | | | | | | [facility] - | | | | | | LABORATORY | | + + + + + + | Red Blood | 3.89 | 3.70 - 5.20 | [facility] | | | Cells | | M/uL | [facility] | | | | | | [facility] | | | | | | CENTER - | | | | | | LABORATORY | | + + + + + + | Hemoglobin | 11.3 (L) | 11.5 - 16.0 | [facility] | | | | | g/dL | [facility] | | | | | | [facility] | | | | | | CENTER - | | | | | | LABORATORY | | + + + + + + | Hematocrit | 33.3 (L) | 34.0 - 47.0 % | [facility] | | | | | | [facility] | | | [facility] | | [facility] | | | | | | CENTER - | | | | | | LABORATORY | | + + + + + + | MCV | 85.6 | 83.0 - 101.0 fL | [facility] | | | | | | [facility] | | [facility] | | [facility] | | | | | | C[facility] - | | | | | | LABORATORY | | + + + + + + | MCH | 29.0 | 28.0 - 35.0 pg | [facility] | | | | | | [facility] | [facility] | [facility] | | | | | | CENTER - | | | | | | LABORATORY | | + + + + + + | MCHC | 33.8 | 32.0 - 36.0 | [facility] | | | | | g/dL | [facility] | | | | | | [facility] | | | | | | CENTER - | | | | | | LABORATORY | | + + + + + + | RDW-CV | 15.5 (H) | <15.0 % | [facility] | | | | | | [facility] | [facility] | [facility] | | | | | | CENTER - | | | | | | LABORATORY | | + + + + + + | Platelet | 288 | 140 - 440 K/uL | [facility] | | | Count | | | [facility] | | | | | | [facility] | | | | | | CENTER - | | | | | | LABORATORY | | + + + + + + | MPV | 8.1 | fL | [facility] | | | | | | [facility] | [facility] | [facility] | | | | | | CENTER - | | | | | | LABORATORY | | + + + + + + | % | 80.0 | 45.0 - 82.0 % | [facility] | | | Neutrophils | | | [facility] | | | | | | [facility] | | | | | | CENTER - | | | | | | LABORATORY | | + + + + + + | % | 9.4 (L) | 20.0 - 45.0 % | [facility] | | | Lymphocytes | | | [facility] | | | | | | [facility] | | | | | | CENTER - | | | | | | LABORATORY | | + + + + + + | % Monocytes | 9.2 | 4.0 - 12.0 % | [facility] | | | | | | [facility] | | | | | | [facility] | | | | | | [facility] - | | | | | | LABORATORY | | + + + + + + | % | 1.0 | 0.0 - 5.0 % | [facility] | | | Eosinophils | | | [facility] | | | | | | [facility] | | | | | | CENTER - | | | | | | LABORATORY | | + + + + + + | % Basophils | 0.4 | 0.0 - 1.0 % | [facility] | | | | | | [facility] | | | | | | [facility] | | | | | | CENTER - | | | | | | LABORATORY | | + + + + + + | Absolute | 13.70 (H) | 1.80 - 8.50 | [facility] | | | Neutrophils | | K/uL | [facility] | | | | | | [facility] | | | | | | CENTER - | | | | | | LABORATORY | | + + + + + + | Absolute | 1.60 | 0.60 - 3.20 | [facility] | | | Lymphocytes | | K/uL | [facility] | | | | | | [facility] | | | | | | CENTER - | | | | | | LABORATORY | | + + + + + + | Absolute | 1.60 (H) | 0.00 - 1.00 | [facility] | | | Monocytes | | K/uL | [facility] | | | | | | [facility] | | | | | | CENTER - | | | | | | LABORATORY | | + + + + + + | Absolute | 0.20 | 0.00 - 0.40 | [facility] | | | Eosinophils | | K/uL | [facility] | | | | | | [facility]ICAL | | | | | | CENTER - | | | | | | LABORATORY | | + + + + + + | Absolute | 0.10 | 0.00 - 0.10 | [facility] | [...] + | [facility] | [address] | [place] | [phone] | | [facility] | | [address] | | | - LABORATORY | | | | + + + + + Rubella Ab, IgG (03/11/2017) + +--------+ + + + | Component | Value | Ref Range | Performed | Pathologist | | | | | At | Signature | + +--------+ + + + | Rubella, | Immune | | | | | External | | | | | + +--------+ + + + + + | Specimen | + + | Blood | + + Rapid Plasma Reagin, Qual (03/11/2017) + + + + + + | Component | Value | Ref Range | Performed | Pathologist | | | | | At | Signature | + + + + + + | RPR, | Non-Reactive | Non-Reactive | | | | External | | | | | + + + + + + + + | Specimen | + + | Blood | + + HIV 1 and 2 Ab, Reflex (03/11/2017) + + + + + + | Component | Value | Ref Range | Performed | Pathologist | | | | | At | Signature | + + + + + + | HIV, | Non-Reactive | Non-Reactive | | | | External | | | | | + + + + + + + + | Specimen | + + | Blood | + + Hepatitis B Surface Ag (03/11/2017) + + + + + + | Component | Value | Ref Range | Performed | Pathologist | | | | | At | Signature | + + + + + + | HBsAg, | Non-Reactive | Non-Reactive | | | | External | | | | | + + + + + + + + | Specimen | + + | Blood | + + C. trachomatis and N. gonorrhoeae, NAAT (03/11/2017) + + + + + + | Component | Value | Ref Range | Performed | Pathologist | | | | | At | Signature | + + + + + + | Chlamydia, | Negative | Negative | | | | External | | | | | + + + + + + ABO Rh (03/11/2017) + + + + + + | Component | Value | Ref Range | Performed | Pathologist | | | | | At | Signature | + + + + + + | ABORH | A Positive | | | | | EXTERNAL | | | | | + + + + + + + + | Specimen | + + | Blood | + + C. TRACHOMATIS AND N. GONORRHOEAE AND T. VAGINALIS, NAAT (03/11/2017) + + + + + + | Component | Value | Ref Range | Performed | Pathologist | | | | | At | Signature | + + + + + + | GC External | Negative | Negative | | | + + + + + + + + | Specimen | + + | Genital | + + Antibody Screen (03/11/2017) + + + + + + | Component | Value | Ref Range | Performed | Pathologist | | | | | At | Signature | + + + + + + | Antibody | Negative | Negative | | | | Screen, | | | | | | External | | | | | + + + + + + + + | Specimen | + + | Blood | + + documented in this encounter Visit Diagnoses Not on filedocumented in this encounter Administered Medications + +---------+ +--------+-------+------+ | Medication Order | MAR | Action | Dose | Rate | Site | | | Action | Date | | | | + +---------+ +--------+-------+------+ | lactated ringers (LR) bolus | New Bag | 09/20/20 | 1,000 | 500 | | | 1,000 mL 1,000 mL, Intravenous, | | 17 6:04 | mLs | mL/hr | | | Administer over 2 Hours, ONCE, | | PM PDT | | | | | 09/20/17 at 1830, For 1 dose | | | | | | + +---------+ +--------+-------+------+ +---+---+ | | | +---+---+ documented in this encounter"
--- OUTSIDE RECORDS SUMMARY | ~2020-09-05 | XMS | Encounter Summary ---
Demographics + + + | Address | [address] | | | [place] [address] | + + + | Home Phone [...] | | | | | [place] [address] | | + + + + + | Concha Paulino | ECON | [address] | | | | | [place] [address] | | + + + + + Care Team Providers + +------+ + | Care Dobie Man Name | Role | Phone | [...] + + | 10/27/ | Telephone | [facility] | Gonzalo Merchant, | Imaging Only | | 2013 | | PHYSIATRY [address] | MD [address] | | | | | [address] | [place] | | | | | [place] | [id number] | | | | | [address] | | | | | | [phone] | | | +--------+ + + + [...] this encounter Miscellaneous Notes Telephone Encounter - Angelia Dee RN - 10/27/2014 11:10 AM PSTNew order placed.Electr onically signed by Angelia Dee RN at 10/27/2014 11:10 AM PSTdocumented in this encounte r Plan of Treatment [...] | | | | | [place] [address] | | | | | | [phone] | | | | | | | | +--------+ + + + + | 09/22/ | Office | Physical Medicine | Gonzalo Merchant, | | | 2019 | Visit | and Rehabilitation | MD [address]ane [address] | | | | | | [place] | | | | | | [address] | | | | | | | | +--------+ + + + + | 09/29/ | Virtual | Pain Medicine | ElbaPachecoPeggy | | | 2019 | Office | | [address] | | | | Visit | | [place] | | | | | | [place] | | | | | | [place] [address] | | | | | | [phone] | | | | | | | [...]
--- OUTSIDE RECORDS SUMMARY | ~2020-09-05 | XMS | Encounter Summary ---
Demographics + + + | Address | [address] | | | [place] [address] | + + + | Home Phone | | + + + | Preferred Language | Unknown | + + + | Marital Status | Single | + + + | Anabaptist Affiliation | 1059 | + + + | Race | Unknown | + + + | Ethnic Group | Not or | + + + Author + + + | Author | [facility] | | | and [place] | + + + | Organization | [facility] | | [...] | | | | | [place] [address] | | + + + + + | Concha Paulino | ECON | [address] | | | | | [place] [address] | | + + + + + Care Team Providers + +------+ + | Care Development Representative Name | Role | Phone | + +------+ + | Chance Easley MD | PCP | | + +------+ + Encounter Details +--------+ + + + + | Date | Type | Department | Care Team | Description | +--------+ + + + + | 03/09/ | Abstract | [facility] [place] | Sravanthi Mcgee, | | | 2012 | | PHYSIATRY [address] | RN | | | | | [address] | | | | | | [place] | | | | | | [address] | | | | | | [phone] | | | +--------+ + + + [...] | | | | | [place] [address] | | | | | | [phone] | | | | | | | | +--------+ + + + + | 09/22/ | Office | Physical Medicine | Gonzalo Merchant, | | | 2019 | Visit | and Rehabilitation | [address] | | | | | | [place] | | | | | | [address] | | | | | | | | +--------+ + + + + | 09/29/ | Virtual | Pain Medicine | Peggy Arreola | | | 2019 | Office | | [address] | | | | Visit | | [place] | | | | | | [place], | | | | | | [place] [address] | | | | | | [phone] | | | | | | | | +--------+ + + + + | 01/24/ | Office | Family Medicine | Kurt Campbell, | | | 2020 | Visit | | DO [address] | | | | | | [place] | | | | | | [address] | | | | | | | | +--------+ + + + + documented as of this encounter Visit Diagnoses Not on filedocumented in this encounter"
--- OUTSIDE RECORDS SUMMARY | ~2020-09-05 | XMS | Encounter Summary ---
Demographics + + + | Address | [address] [facility] | | | [place] [address] | + + + | Home Phone | | + + + | Preferred Language | Unknown | + + + | Marital Status | Single | + + + | Buddhism Affiliation | 1059 | + + + | Race | Unknown | + + + | Ethnic Group | Not or | + + + Author + + + | Author | [facility] | | | and [place] | + + + | Organization | [facility] | | [...] | | | | | [place] [address] | | + + + + + | Concha Paulino | ECON | [address] | | | | | [place] [address] | | + + + + + Care Team Providers + +------+ + | Care Spot Facer Name | Role | Phone | + [...] | +--------+ + + + + | 02/13/ | Emergency | [facility] | Casimiro Pimentel, | Vaginal bleeding in | | 2019 | | [facility] | MD [address] | , first | | | | CENTER [address] | [place] | trimester (Primary | | | | [place], [place] | [address] | Dx); Elevated blood | | | | [phone] | | pressure reading | | | | [phone] | | | +--------+ + + + [...] + + + | Blood Pressure | 104/68 | 02/13/2019 9:47 PM | | | | | PDT | | + + + + + | Pulse | 84 | 02/13/2019 9:47 PM | | | | | PDT | | + + + + + | Temperature | 36.9 C (98.5 F) | 02/13/2019 7:33 PM | | | | | PDT | | + + + + + | Respiratory Rate | 16 | 02/13/2019 9:47 PM | | | | | PDT | | + + + + + | Oxygen Saturation | 99% | 02/13/2019 9:47 PM | | | | | PDT | | + + + + + | Inhaled Oxygen | - | - | | | Concentration | | | | + + + + + | Weight | 47.6 kg (105 lb) | 02/13/2019 7:33 PM | | | | | PDT | | + + + + + | Height | 157.5 cm (5' 2") | 02/13/2019 7:33 PM | | | | | PDT | | + + + + + | Body Mass Index | 19.2 | 02/13/2019 7:33 PM | | | | | PDT [...] as of this encounter Discharge Instructions Instructions Casimiro Pimentel MD - 02/13/2019Please return in 72 hours for recheck of you r quantitative HCG to determine if increasing or remaining the same. Please return immediate ly for increased pain, increased vaginal bleeding or you have any new concerns. Your Blood type is A+ Your quantitative HCG level is 15 mIU/ml AttachmentsThe following attachments cannot be sent through Care Everywhere., Blee ding During Early (German)documented in this encounter Medications at Time of [...] into | 18 g | 0 | 07/02/20 | | | HFA) 90 mcg/puff | the lungs every 6 | | | 18 | 9 | | inhalerIndications: | hours [...] by | 60 vial | 0 | 11/28/19 | | | mL nebulizer | nebulization every 4 | | | 19 | 9 | | solutionIndications: | hours as needed [...] + + | FLOVENT HFA 44 | | | 0 | 11/24/20 | | | MCG/ACT inhaler | | | | 18 | 9 | + + + +---------+ + + | ibuprofen (ADVIL, | Take 400 mg by mouth | | 0 | | | | MOTRIN) 200 mg | every 6 hours as | | | | 9 | | tablet | needed for Pain. | | | | | + + + +---------+ + + | 27-0.8 mg | Take 1 tablet by | | 0 | | | | multivitamin tablet | mouth Daily. | | | | 9 | + + + +---------+ + + | sertraline | Take 1 tablet by | 30 | 5 | 09/25/20 | | | (ZOLOFT) 25 mg | mouth Daily. | tablet | | 17 | 9 | | tablet | | | | | | + + + +---------+ + + | terbinafine | Take 1 tablet by | 14 | 0 | 02/05/20 | | | (LAMISIL) 250 MG | mouth Daily for 14 | tablet | | 19 | 9 | | tabletIndications: | days. | | | | | | Tinea corporis | | | | | | + + + +---------+ + + documented as of this encounter ED Notes Casimiro Pimentel MD - 02/13/2019 7:53 PM PDTFormatting of this note might be different f rom the original. [facility] Renny Saravia Emergency Department Encounter Note [address] [place] [id number] PCP:Leonid Osorio MD [phone] CHIEF COMPLAINT: Chief Complaint Patient presents with Abdominal Pain () ED Room: ED17/ED17 HPI Renny Saravia is a 19 y.o. female who presents to the Emergency Department recent positiv e with pelvic cramping and vaginal bleeding. No near syncope no falls no injuries. with SAB or TABs. Recently found out that she is . [place] with the last several days. She is taking gnjo-mto-luvqypw urine test. She is not in extremities. She de nies any dizziness no falls no recent injuries. Otherwise no acute distress. She is having s ome mild pelvic discomfort but not cramping severe pain no chest pain or shortness of breath . PAST MEDICAL & SURGICAL HISTORY Past Medical History: Diagnosis Date Asthma Depression Depression Hypotension Kidney cysts right Migraine Past Surgical History: Procedure Laterality Date DENTAL SURGERY CURRENT MEDICATIONS Discharge Medication List as of 02/13/2019 21:44 CONTINUE these medications which have NOT CHANGED Details acetaminophen (TYLENOL) 325 mg tablet Take 650 mg by mouth every 4 hours as needed for Pain .Historical Med albuterol (PROAIR HFA) 90 mcg/puff inhaler Inhale 2 puffs into the lungs every 6 hours as n eeded for Wheezing or Shortness of Breath.Disp-18 g, R-0, Normal albuterol 2.5 mg/3 mL nebulizer solution Take 3 mLs by nebulization every 4 hours as needed for Wheezing or Shortness of Breath.Disp-60 vial, R-0, Normal diphenhydrAMINE (BENADRYL) 25 mg tablet Take 25 mg by mouth every 6 hours as needed for Itc sonia.Historical Med EPINEPHrine auto-injector 0.3 mg/0.3 mL injection Inject 0.3 mLs into the muscle as needed for Anaphylaxis.Disp-1 each, R-0, Print FLOVENT HFA 44 MCG/ACT inhaler R-0, MARC, Historical Med ibuprofen (ADVIL, MOTRIN) 200 mg tablet Take 400 mg by mouth every 6 hours as needed for Pa in.Historical Med 27-0.8 mg multivitamin tablet Take 1 tablet by mouth Daily.Historical Med sertraline (ZOLOFT) 25 mg tablet Take 1 tablet by mouth Daily.Disp-30 tablet, R-5, Print terbinafine (LAMISIL) 250 MG tablet Take 1 tablet by mouth Daily for 14 days.Disp-14 tablet , R-0, Normal ALLERGIES Allergies Allergen Reactions Rey Flavor Hives [...] Other ablation Collagen disease Neg Hx Congenital heart disease Neg Hx Deafness Neg Hx Heart transplant Neg Hx High cholesterol Neg Hx Marfan [...] bio mom and m-grandmother REVIEW OF SYSTEMS As in history of present illness. A 10 system review was otherwise negative. PHYSICAL EXAM VITAL SIGNS: (first vital signs):Temp: 36.9 C (98.5 F) Pulse: 108 Resp: 16 SpO2: 98 % B P: 140/76 Body mass index is 19.2 kg/m. General: Alert, no active distress and not requiring any emergent interventions Eyes: Normal inspection, pupils equal and round, non-icteric sclera ENT: Ears normal Nose normal Pharynx normal Neck: Normal inspection Supple Full ROM Cardiovascular: Normal rate and rhythm, no extra sounds No murmurs rubs or gallops Focal PMI Respiratory: No respiratory distress or wheezing Normal excursion No retractions Abdomen: Soft, non-tender, non-distended Normal active bowel sounds Back: Normal inspection Without tenderness or deformity Skin: Color normal Warm and dry Extremities: [place] with equal pulses in the upper and lower extremities bilaterally Neuro: No gross motor/sensory deficit GCS 15 No cerebellar deficits Alert and oriented to person, place, time and situation. EKG LABS Results for orders placed or performed during the hospital encounter of 02/13/19 Culture, Urine Result Value Ref Range Culture >100,000 CFU/ml Mixed Gram Positive Raissa CBC w/ Auto Differential Result Value Ref Range WBC 9.2 4.0 - 11.0 K/uL RBC 4.51 3.70 - 5.20 M/uL Hemoglobin 13.6 11.5 - 16.0 g/dL Hematocrit 40.4 34.0 - 47.0 % MCV 89.6 83.0 - 101.0 fL MCH 30.2 28.0 - 35.0 pg MCHC 33.7 32.0 - 36.0 g/dL RDW-CV 11.9 <15.0 % RDW-SD 38.6 35.1 - 46.3 fL Platelet Count 359 140 - 440 K/uL MPV 9.6 6.5 - 12.4 fL % Neutrophils 61.7 45.0 - 82.0 % % Lymphocytes 25.9 20.0 - 45.0 % % Monocytes 7.1 4.0 - 12.0 % % Eosinophils 4.7 0.0 - 5.0 % % Basophils 0.5 0.0 - 1.0 % % Immature Granulocytes 0.1 0.0 - 0.4 % Absolute Neutrophils 5.64 1.80 - 8.50 K/uL Absolute Lymphocytes 2.37 0.60 - 3.20 K/uL Absolute Monocytes 0.65 0.00 - 1.00 K/uL Absolute Eosinophils 0.43 (H) 0.00 - 0.40 K/uL Absolute Basophils 0.05 0.00 - 0.10 K/uL Absolute Immature Granulocytes 0.01 0.00 - 0.03 K/uL % nRBC 0 0 - 2 per 100 WBC's Absolute nRBC 0.00 0.00 - 0.01 K/uL Comprehensive Metabolic Panel Result Value Ref Range Na 140 136 - 145 mmol/L K 3.5 3.4 - 5.1 mmol/L Cl 109 (H) 98 - 107 mmol/L CO2 26 20 - 31 mmol/L Anion Gap 5 3 - 16 mmol/L Glucose 93 60 - 106 mg/dL BUN 9 9 - 23 mg/dL Creatinine 0.70 0.55 - 1.02 mg/dL eGFR if not >60 >=60 mL/min/1.73m2 Ca 9.3 8.7 - 10.4 mg/dL Albumin 4.3 3.2 - 4.8 g/dL Bilirubin Total 0.5 0.3 - 1.2 mg/dL Total Protein 5.8 5.7 - 8.2 g/dL AST 16 0 - 34 U/L ALT 15 10 - 49 U/L Alkaline Phosphatase 64 46 - 116 U/L Globulin 1.5 (L) 2.1 - 3.8 g/dL Albumin/Globulin Ratio 2.9 (H) 0.8 - 1.9 BUN/Creatinine Ratio 12.9 HCG, Serum, Quant Result Value Ref Range hCG Quant, Serum 15 (H) 2 - 4 mIU/mL Urinalysis with Microscopic with Culture if Indicated Result Value Ref Range Color Red (A) Light Yellow, Yellow, Straw Clarity Cloudy (A) Clear pH, Urine 7.0 5.0 - 8.0 Specific [place] 1.020 1.001 - 1.030 Protein, Urine 100 mg/dL (A) Negative Blood, Urine Large (A) Negative Glucose, Urine Negative Negative Ketones, Urine Negative Negative Bilirubin, Urine Negative Negative Nitrite, Urine Negative Negative Leukocyte Esterase, Urine Moderate (A) Negative Urobilinogen, Urine Negative 0.2 mg/dL, 1.0 mg/dL, Negative WBC UA >100 (A) 0 - 2 /HPF WBC CLUMPS UA Few (A) None Seen /HPF RBC UA >100 (A) 0 - 2 /HPF SQUAMOUS EPITHELIAL UA >100 (A) 0 - 2 /LPF BACTERIA UA 1+ (A) Negative /HPF MUCUS UA Present (A) Negative /LPF URINE COMMENT Urine Culture Set Up IMAGING STUIDES (X-Rays interpreted by ED Physician) No results found for this or any previous visit (from the past 360 hour(s)). ED COURSE & MEDICAL DECISION MAKING Pertinent Labs & Imaging studies were reviewed along with EMS notes and skilled nursing record s if applicable. (See chart for details) Medications and Allergy list reviewed. Nurses note and old records were reviewed 19:54 The patient was seen and examined, with positive test here with onset of bl eeding n cramping. She will require laboratory analysis and quantitative hCG. Based on the r esults of the hCG will likely require ultrasound of greater than 600. She also require ectop ic precautions if her quantitative hCG is greater than 10. Respiratory zone is most likely g reater than 2000. At present I will wait to see what the results of the laboratory analysis. I have discussed my clinical impression and treatment plan with the pt. I have also recomme nded ectopic precautions to return to the Emergency Department and 72-96 hours for recheck o f her quantitative hCG and potentially ultrasound at that point time. She understands that s he will return immediately should she have any increased pain, new concerns, or feel like he r bleeding is getting worse. She does not require RhoGAM We have specifically discussed the signs and symptoms that would constitute the need for an immediate return to the ED, the imp ortance of continued outpatient f/u and the importance of compliance with the d/c instructio ns. I have answered any questions that the pt has to the best of my ability. Based upon the pt s history, physical exam, ED course, and diagnostic studies, I feel that there is no cu rrent emergent medical condition that warrants admission, transfer, or further ED treatment at this time. Last Set of Vital Signs: Temp: 36.9 C (98.5 F) Pulse: 84 Resp: 16 SpO2: 99 % BP: 104/68 Medications - No data to display Vitals: 02/13/19 1933 02/13/19 2147 BP: 140/76 104/68 Pulse: 108 84 Resp: 16 16 Temp: 36.9 C (98.5 F) TempSrc: Tympanic SpO2: 98% 99% Weight: 47.6 kg (105 lb) Height: 1.575 m (5' 2") FINAL IMPRESSION ICD-10-CM ICD-9-CM 1. Vaginal bleeding in , first trimester O20.9 640.93 2. Elevated blood pressure reading R03.0 796.2 Follow-up Information Leonid Osorio MD. Specialty: Pediatrics Why: Please call today to arrange follow-up in the next 7-10 days Contact information: [address] [facility] [address] [facility]. Specialty: Emergency Medicine Why: Please return in 72 hours repeat of your quantitative HCG with our facility or with y our International Bank Manager. Contact information[facility] [address] [facility] [address] Discharge Medication List as of 02/13/2019 21:44 Casimiro Pimentel. This document has been prepared with a voice recognition system. The possibility of "sound alike" laboratory animal facility supervisor errors, addition and/or deletions may occur. If there is any question p lease contact the author of the document. Casimiro Pimentel MD 02/15/19 132[address] R N - 02/13/2019 7:31 PM PDTPatient reports RLQ abdominal pain and vaginal spotting. Positive home test one week ago. LMP 01/09/19Electronically signed by NENA Trammell 02/13/2019 7:33 PM PDTdocumented in this encounter Plan of Treatment +--------+ + + + + | Date | Type | Specialty | Care Team | Description | +--------+ + + + + | 09/07/ | Office | Cardiology | Tawana Mcdonald | | | 2019 | Visit | | [address] | | | | | | [address] [facility] | | | | | | [place] [address] | | | | | | [phone] | | | | | | | | +--------+ + + + + | 09/22/ | Office | Physical Medicine | Gonzalo Merchant, | | | 2019 | Visit | and Rehabilitation | [address] | | | | | | [place] | | | | | | [id number] | | | | | | | | +--------+ + + + + | 09/29/ | Virtual | Pain Medicine | Peggy Arreola | | | 2019 | Office | | [address] | | | | Visit | | [address] | | | | | | [place], | | | | | | [place] [address] | | | | | | [phone] | | | | | | | | +--------+ + + + + | 01/24/ | Office | Family Medicine | Kurt Campbell, | | | 2020 | Visit | | DO [address] | | | | | | [place] | | | | | | [address] | | | | | | | | +--------+ + + + + documented as of this encounter Procedures + +--------+ + + + | Procedure Name | Priori | Date/Time | Associated Diagnosis | Comments | | | ty | | | | + +--------+ + + + | URINALYSIS WITH | STAT | 02/13/2019 | | Results for this | | MICROSCOPIC WITH | | 8:29 PM | | procedure are in the | | CULTURE IF INDICATED | | PDT | | results section. | + +--------+ + + + | CULTURE, URINE | STAT | 02/13/2019 | | Results for this | | | | 8:29 PM | | procedure are in the | | | | PDT | | results section. | + +--------+ + + + | CBC W/AUTO | STAT | 02/13/2019 | | Results for this | | DIFFERENTIAL | | 8:24 PM | | procedure are in the | | | | PDT | | results section. | + +--------+ + + + | HCG, SERUM, QUANT | STAT | 02/13/2019 | | Results for this | | | | 8:24 PM | | procedure are in the | | | | PDT | | results section. | + +--------+ + + + | COMPREHENSIVE | STAT | 02/13/2019 | | Results for this | | METABOLIC PANEL | | 8:24 PM | | procedure are in the | | | | PDT | | results section. | + +--------+ + + + documented in this encounter Results Culture, Urine (02/13/2019 8:29 PM PDT) + + + + + + | Component | Value | Ref Range | Performed | Pathologist | | | | | At | Signature | + + + + + + | Culture | >100,000 CFU/ml Mixed | | [facility] | | | | Gram Positive | | [facility] | | | | FloraComment: Suggests | | MEDICAL | | | | contamination with | | CENTER - | | | | urogenital or skin | | LABORATORY | | | | raissa.No further work-up | | | | | | to follow. | | | | + + + [...] | + + + + + | [facility] | [address] | [place] | [phone] | | [facility] | | [address] | | | - LABORATORY | | | | + + + + + Urinalysis with Microscopic with Culture if Indicated (02/13/2019 8:29 PM PDT) + + + + + + | Component | Value | Ref Range | Performed | Pathologist | | | | | At | Signature | + + + + + + | Color, | Red (A) | Light Yellow, | [facility] | | | Urine | | Yellow, Straw | [facility] | | | | | | MEDICAL | | | | | | CENTER - | | | | | | LABORATORY | | + + + + + + | Clarity, | Cloudy (A) | Clear | [facility] | | [...] + + + + | Specific | 1.020 | 1.001 - 1.030 | [facility] | | | [place], | | | [facility] | | | Urine | | | MEDICAL | | | | | | CENTER - | | | | | | LABORATORY | | + + + + + + | Protein, | 100 mg/dL (A) | Negative | [facility] | | | Urine | | | [facility] | | | | | | MEDICAL | | | | | | CENTER - | | | | | | LABORATORY | | + + + + + + | Blood, | Large (A) | Negative | [facility] [...] + + + + | Leukocyte | Moderate (A) | Negative | [facility] | | [...] + + + | White Blood | >100 (A) | 0 - 2 /HPF | [facility] | | | Cells, | | | [facility] | | | Urine | | | MEDICAL | | | | | | CENTER - | | | | | | LABORATORY | | + + + + + + | White Blood | Few (A) | None Seen /HPF | [facility] | | | Cell | | | [facility] | | | Clumps, | | | MEDICAL | | | Urine | | | CENTER - | | | | | | LABORATORY | | + + + + + + | Red Blood | >100 (A) | 0 - 2 /HPF | [facility] | | | Cells, | | | [facility] | | | Urine | | | MEDICAL | | | | | | CENTER - | | | | | | LABORATORY | | + + + + + + | Squamous | >100 (A) | 0 - 2 /LPF | [...] | Urine Culture Set Up | | [facility] | | | Comment | | | [facility] | | [...] + | [facility] | [address] | [place] | [phone] | | [facility] | | [address] | | | - LABORATORY | | | | + + + + + HCG, Serum, Quant (02/13/2019 8:24 PM PDT) + +--------+ + + + | Component | Value | Ref Range | Performed | Pathologist | | | | | At | Signature | + +--------+ + + + | hCG Quant, | 15 (H) | 2 - 4 mIU/mL | [facility] | | | Serum | | [facility] | | | | | [facility]ICAL | | | | | | CENTER - | | | | | | LABORATORY | | + +--------+ + + + + + | Specimen | + + | Blood | + + + + + + + | Performing | Address | City/State/Zipcode | Phone Number | | Organization | | | | + + + + + | [facility] | [address] | [place] | [phone] | | [facility] | | [address] | | | - LABORATORY | | | | + + + + + Comprehensive Metabolic Panel (02/13/2019 8:24 PM PDT) + +---------+ + + + | Component | Value | Ref Range | Performed | Pathologist | | | | | At | Signature | + +---------+ + + + | Na | 140 | 136 - 145 | [facility] | | | | | mmol/L | [facility] | | | | | | MEDICAL | | | | | | CENTER - | | | | | | LABORATORY | | + +---------+ + + + | K | 3.5 | 3.4 - 5.1 | [facility] | | | | | mmol/L | [facility] | | | | | | MEDICAL | | | | | | CENTER - | | | | | | LABORATORY | | + +---------+ + + + | Cl | 109 (H) | 98 - 107 mmol/L | [facility] | | | | | | [facility] | | | | | | MEDICAL | | | | | | CENTER - | | | | | | LABORATORY | | + +---------+ + + + | CO2 | 26 | 20 - 31 mmol/L | [facility] | | | | | | [facility] | | | | | | MEDICAL | | | | | | CENTER - | | | | | | LABORATORY | | + +---------+ + + + | Anion Gap | 5 | 3 - 16 mmol/L | [facility] | | | | | | [facility] | | | | | | MEDICAL | | | | | | CENTER - | | | | | | LABORATORY | | + +---------+ + + + | Glucose | 93 | 60 - 106 mg/dL | [facility] | | | | | | [facility] | | | | | | MEDICAL | | | | | | CENTER - | | | | | | LABORATORY | | + +---------+ + + + | BUN | 9 | 9 - 23 mg/dL | [facility] | | | | | | [facility] | | | | | | MEDICAL | | | | | | CENTER - | | | | | | LABORATORY | | + +---------+ + + + | Creatinine | 0.70 | 0.55 - 1.02 | [facility] | | | | | mg/dL | [facility] | | | | | | MEDICAL | | | | | | CENTER - | | | | | | LABORATORY | | + +---------+ + + + | eGFR, | >60 | >=60 | [facility] | | | non- | | mL/min/1.73m2 | [facility] | | | [place] | | | MEDICAL | | | | | | CENTER - | | | | | | LABORATORY | | + +---------+ + + + | Calcium | 9.3 | 8.7 - 10.4 | [facility] | | | | | mg/dL | [facility] | | | | | | MEDICAL | | | | | | CENTER - | | | | | | LABORATORY | | + +---------+ + + + | Albumin | 4.3 | 3.2 - 4.8 g/dL | [facility] | | | | | | [facility] | | | | | | MEDICAL | | | | | | CENTER - | | | | | | LABORATORY | | + +---------+ + + + | Bilirubin | 0.5 | 0.3 - 1.2 mg/dL | [facility] | | | Total | | | [facility] | | | | | | MEDICAL | | | | | | CENTER - | | | | | | LABORATORY | | + +---------+ + + + | Total | 5.8 | 5.7 - 8.2 g/dL | [facility] | | | Protein | | | [facility] | | | | | | MEDICAL | | | | | | CENTER - | | | | | | LABORATORY | | + +---------+ + + + | AST | 16 | 0 - 34 U/L | [facility] | | | | | | [facility] | | | | | | MEDICAL | | | | | | CENTER - | | | | | | LABORATORY | | + +---------+ + + + | ALT | 15 | 10 - 49 U/L | [facility] | | | | | | [facility] | | | | | | MEDICAL | | | | | | CENTER - | | | | | | LABORATORY | | + +---------+ + + + | Alkaline | 64 | 46 - 116 U/L | [facility] | | | Phosphatase | | | [facility] | | | | | | MEDICAL | | | | | | CENTER - | | | | | | LABORATORY | | + +---------+ + + + | Globulin | 1.5 (L) | 2.1 - 3.8 g/dL | [facility] | | | | | | [facility] | | | | | | MEDICAL | | | | | | CENTER - | | | | | | LABORATORY | | + +---------+ + + + | Albumin/Angelica | 2.9 (H) | 0.8 - 1.9 | [facility] | | | bulin Ratio | | | [facility] | | | | | | MEDICAL | | | | | | CENTER - | | | | | | LABORATORY | | + +---------+ + + + | BUN/Creatin | 12.9 | | [facility] | | | ine Ratio | | | [facility] | | | | | | MEDICAL | | | | | | CENTER - | | | | | | LABORATORY | | + +---------+ + + + + + | Specimen | + + | Blood | + + + + + + + | Performing | Address | City/State/Zipcode | Phone Number | | Organization | | | | + + + + + | [facility] | [address] | [place] | [phone] | | [facility] | | [address] | | | - LABORATORY | | | | + + + + + CBC w/ Auto Differential (02/13/2019 8:24 PM PDT) + + + + + + | Component | Value | Ref Range | Performed | Pathologist | | | | | At | Signature | + + + + + + | White Blood | 9.2 | 4.0 - 11.0 K/uL | [facility] | | | Cells | | | [facility] | | | | | | MEDICAL | | | | | | CENTER - | | | | | | LABORATORY | | + + + + + + | Red Blood | 4.51 | 3.70 - 5.20 | [facility] | | | Cells | | M/uL | [facility] | | | | | | MEDICAL | | | | | | CENTER - | | | | | | LABORATORY | | + + + + + + | Hemoglobin | 13.6 | 11.5 - 16.0 | [facility] | | | | | g/dL | [facility] | | | | | | MEDICAL | | | | | | CENTER - | | | | | | LABORATORY | | + + + + + + | Hematocrit | 40.4 | 34.0 - 47.0 % | [facility] | | | | | | [facility] | | | | | | MEDICAL | | | | | | CENTER - | | | | | | LABORATORY | | + + + + + + | MCV | 89.6 | 83.0 - 101.0 fL | [facility] | | | | | | [facility] | | | | | | MEDICAL | | | | | | CENTER - | | | | | | LABORATORY | | + + + + + + | MCH | 30.2 | 28.0 - 35.0 pg | [facility] | | | | | | [facility] | | | | | | MEDICAL | | | | | | CENTER - | | | | | | LABORATORY | | + + + + + + | MCHC | 33.7 | 32.0 - 36.0 | [facility] | | | | | g/dL | [facility] | | | | | | MEDICAL | | | | | | CENTER - | | | | | | LABORATORY | | + + + + + + | RDW-CV | 11.9 | <15.0 % | [facility] | | | | | | [facility] | | | | | | MEDICAL | | | | | | CENTER - | | | | | | LABORATORY | | + + + + + + | RDW-SD | 38.6 | 35.1 - 46.3 fL | [facility] | | | | | | [facility] | | | | | | MEDICAL | | | | | | CENTER - | | | | | | LABORATORY | | + + + + + + | Platelet | 359 | 140 - 440 K/uL | [facility] | | | Count | | | [facility] | | | | | | MEDICAL | | | | | | CENTER - | | | | | | LABORATORY | | + + + + + + | MPV | 9.6 | 6.5 - 12.4 fL | [facility] | | | | | | [facility] | | | | | | MEDICAL | | | | | | CENTER - | | | | | | LABORATORY | | + + + + + + | % | 61.7 | 45.0 - 82.0 % | [facility] | | | Neutrophils | | | [facility] | | | | | | MEDICAL | | | | | | CENTER - | | | | | | LABORATORY | | + + + + + + | % | 25.9 | 20.0 - 45.0 % | [facility] | | | Lymphocytes | | | [facility] | | | | | | MEDICAL | | | | | | CENTER - | | | | | | LABORATORY | | + + + + + + | % Monocytes | 7.1 | 4.0 - 12.0 % | [facility] | | | | | | [facility] | | | | | | MEDICAL | | | | | | CENTER - | | | | | | LABORATORY | | + + + + + + | % | 4.7 | 0.0 - 5.0 % | [facility] | | | Eosinophils | | | [facility] | | | | | | MEDICAL | | | | | | CENTER - | | | | | | LABORATORY | | + + + + + + | % Basophils | 0.5 | 0.0 - 1.0 % | [facility] | | | | | | [facility] | | | | | | MEDICAL | | | | | | CENTER - | | | | | | LABORATORY | | + + + + + + | % Immature | 0.1Comment: For | 0.0 - 0.4 % | [facility] | | | Granulocyte | patients, use the | | [facility] | | | s | special reference ranges | | MEDICAL | | | | listed below. | | CENTER - | | | | | | LABORATORY | | + + + + + + | Absolute | 5.64 | 1.80 - 8.50 | [facility] | | | Neutrophils | | K/uL | [facility] | | | | | | MEDICAL | | | | | | CENTER - | | | | | | LABORATORY | | + + + + + + | Absolute | 2.37 | 0.60 - 3.20 | [facility] | | | Lymphocytes | | K/uL | [facility] | | | | | | MEDICAL | | | | | | CENTER - | | | | | | LABORATORY | | + + + + + + | Absolute | 0.65 | 0.00 - 1.00 | [facility] | | | Monocytes | | K/uL | [facility] | | | | | | MEDICAL | | | | | | CENTER - | | | | | | LABORATORY | | + + + + + + | Absolute | 0.43 (H) | 0.00 - 0.40 | [facility] | | | Eosinophils | | K/uL | [facility] | | | | | | MEDICAL | | | | | | CENTER - | | | | | | LABORATORY | | + + + + + + | Absolute | 0.05 | 0.00 - 0.10 | [facility] | | | Basophils | | K/uL | [facility] | | | | | | MEDICAL | | | | | | CENTER - | | | | | | LABORATORY | | + + + + + + | Absolute | 0.01Comment: For | 0.00 - 0.03 | [facility] | | | Immature | patients, use | K/uL | [facility] | | | Granulocyte | the special reference | | MEDICAL | | | s | ranges listed below. | | CENTER - | | | | | | LABORATORY | | + + + + + + | % nRBC | 0 | 0 - 2 per 100 | [facility] | | | | | WBC's | [facility] | | | | | | MEDICAL | | | | | | CENTER - | | | | | | LABORATORY | | + + + + + + | Absolute | 0.00 | 0.00 - 0.01 | [facility] | | | nRBC | | K/uL | [facility] | | | | | | MEDICAL | | | | | | CENTER - | | | | | | LABORATORY | | + + + + + + + + | Specimen | + + | Blood | + + + + + | Narrative | Performed At | + + + | IMMATURE GRANULOCYTES - For patients, use the following | [facility] | | reference ranges: Trim. Absolute (K/uL) Percentage (%) | [facility] | | 1st 0.003-0.091 K/uL 0.0-0.9% 2nd 0.007-0.247 K/uL | [facility] | | 0.1-2.0% 3rd 0.018-0.456 K/uL 0.1-2.0% | - LABORATORY | + + + + + + + + | Performing | Address | City/State/Zipcode | Phone Number | | Organization | | | | + + + + + | [facility] | [address] | [place], [place] | [phone] | | [facility] | | [address] | | | - LABORATORY | | | | + + + + + documented in this encounter Visit Diagnoses + + | Diagnosis | + + | Vaginal bleeding in , first trimester - Primary | + + | Elevated blood pressure reading Elevated blood pressure reading without diagnosis of | | hypertension | + + documented in this encounter
--- OUTSIDE RECORDS SUMMARY | ~2020-09-05 | XMS | Encounter Summary ---
Demographics + + + | Address | [address] | | | [place] [address] | + + + | Home Phone | | + + + | Preferred Language | Unknown | + + + | Marital Status | Single | + + + | Holiness Affiliation | 1059 | + + + | Race | Unknown | + + + | Ethnic Group | Not or | + + + Author + + + | Author | [facility] | | | and [place] | + + + | Organization | [facility] | | | and [...] | | | | | [place] [address] | | + + + + + | Concha Paulino | ECON | [address] | | | | | [place] [address] | | + + + + + Care Team Providers + +------+ + | Care Raking Machine Operator Name | Role | Phone | + +------+ + | Tomeka Gomez | PCP | | | Fabian DO | | | + +------+ + Encounter Details +--------+ + + + + | Date | Type | Department | Care Team | Description | +--------+ + + + + | 08/29/ | Hospital | [facility] | QasimalmasTomeka mckay | | | 2017 | Encounter | [facility] | Fatimah Peralta DO | | | | | [address] | [address] | | | | | [place] | [place] | | | | | [address] | [address] | | | | | [phone] | | | +--------+ + + + [...] + + + | Blood Pressure | 123/66 | 08/29/2017 5:50 PM | | | | | PDT | | + + + + + | Pulse | 105 | 08/29/2017 5:50 PM | | | | | PDT | | + + + + + | Temperature | 36.8 C (98.2 F) | 08/29/2017 5:50 PM | | | | | PDT | | + + + + + | Respiratory Rate | 18 | 08/29/2017 5:50 PM | | | | | PDT | | + + + + + | Oxygen Saturation | 97% | 08/29/2017 5:50 PM | | | | | PDT [...] documented in this encounter Discharge Instructions Instructions Yolande Conner RN - 08/29/2017Discharge Education for the Undelivered Patient You can use the following list as [...] +---------+--------+ + documented as of this encounter Progress Notes Adalberto Monsalve MD - 08/29/2017 6:19 PM PDT Labor & Delivery Triage Note Renny Saravia is a 17 y.o. at 33w3d Reason for evaluation: small gush of fluid like discharge with blood tinged streaking. And occasional abdominal cramping. Subjective: Patient reports active fetus, no regular contractions just these mild infrequent contractio ns like pains. Stated a sound of fluid like discharge after using restroom, no persistent leaking. Did not e mild blood tinged discharge but no heavy or persistent bleeding. Denies symptoms of vagina l infection, UTI, recent intercourse, or drug use. Objective Vitals: 08/29/17 1750 BP: 123/66 Pulse: 105 Resp: 18 Temp: 36.8 C (98.2 F) General: no acute distress Abdomen: gravid non-tender FHR Assessment FHT: Baseline: 150-180s Variability: moderate Accels: present Decels: absent, there are some baseline changes but no obvious decelerations Reactive overall. BSUS: Vertex, anterior placenta, adequate fluid with 4.5 cm DVP. Active fetus BPP noted to be 8/8 even on brief evaluation with breathing noted. [place]: no significant uterine activity noted, Patient denies current cramping pain Ua: contaminated catch Amnisure: negative SVE: closed, soft, posterior Assessment: 17 y.o. 33w3d No evidence of ruptured membranes or labor at this time Symptoms are minimal, and patient is currently without significant complaint. Reassuring status overall Plan: Will monitor fetus longer due to current mild tachycardia, when normal baseline returns and remains CAT1 will DC home with labor precautions Follow up in clinic as scheduled Electronically Signed by: Adalberto Monsalve MD 08/29/2017 18:19 documen kira in this encounter Miscellaneous Notes Plan of Yolande Alvarado RN - 08/29/2017 7:46 PM PDTPatient given discharge instruct ions and AVS, patient verbalizes understanding of discharge instructions. Electronically sig marcial by Yolande Conner RN at 08/29/2017 7:46 PM PDTPlan of Khai Agarwal RN - 03/2017 6:09 PM PDTamnisure obtained and sent to lab. No fluid visible[facility] Plan of Khai Agarwal RN - 08/29/2017 5:55 PM PDTTo room 351, EFM and TOCO place d, urine sample obtained, to lab. Pt states she has had intermittant cramping throughout th e day, also feels she may be leaking fluid.Electronically signed by Khai Joya RN at 1 5:57 PM PDTdocumented in this encounter Plan of Treatment +--------+ + + + + | Date | Type | Specialty | Care Team | Description | +--------+ + + + + | 09/07/ | Office | Cardiology | Rosalia Mcdonaldcy | | | 2019 | Visit | | GLEN Morales [address] | | | | | | [address] | | | | | | [place] [address] | | | | | | [phone] | | | | | | | | +--------+ + + + + | 09/22/ | Office | Physical Medicine | Gonzalo Merchant, | | | 2019 | Visit | and Rehabilitation | MD [address] | | | | | | [place] | | | | | | [address] | | | | | | | | +--------+ + + + + | 09/29/ | Virtual | Pain Medicine | Peggy Arreola | | | 2019 | Office | | [address] | | | | Visit | | [place] | | | | | | [place], | | | | | | [place] [address] | | | | | | [phone] | | | | | | | | +--------+ + + + + | 01/24/ | Office | Family Medicine | Kurt Campbell, | | | 2020 | Visit | | DO [address] | | | | | | [place] | | | | | | [address] | | | | | | | | +--------+ + + + + documented as of this encounter Procedures + +--------+ + + + | Procedure Name | Priori | Date/Time | Associated Diagnosis | Comments | | | ty | | | | + +--------+ + + + | RUPTURE OF MEMBRANES | Routin | 08/29/2017 | | Results for this | | | e | 6:04 PM | | procedure are in the | | | | PDT | | results section. | + +--------+ + + + | URINALYSIS WITH | Routin | 08/29/2017 | | Results for this | | MICROSCOPIC | e | 5:50 PM | | procedure are in the | | | | PDT | | results section. | + +--------+ + + + documented in this encounter Results Rupture of Membranes (08/29/2017 6:04 PM PDT) + + + + + + | Component | Value | Ref Range | Performed | Pathologist | | | | | At | Signature | + + + + + + | Rupture of | Negative | Negative | [facility] | | | | | | 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 | [address] | [place] | [phone] | | [facility] | | [address] | | | - LABORATORY | | | | + + + + + Urinalysis With Microscopic (08/29/2017 5:50 PM PDT) + + + + + [...] + + + + | Specific | 1.014 | 1.001 - 1.030 | [facility] | | | [place], | | | [facility] | | [...] | | Urine | | | [facility] | | | | | | MEDICAL | | | | | | CENTER - | | | | | | LABORATORY | | + + + + + + | Glucose, | 50 mg/dL (A) | Negative | [facility] | [...] + + + | White Blood | 15-25 (A) | 0 - 2 /HPF | [facility] | | | Cells, | | | [facility] | | | Urine | | | MEDICAL | | | | | | CENTER - | | | | | | LABORATORY | | + + + + + + | Red Blood | 2-5 (A) | 0 - 2 /HPF | [...] | | Crystals, | | | [facility] | | | Urine | | | MEDICAL | | | | | | CENTER - | | | | | | LABORATORY | | + + + + + + + + | Specimen | + + | Urine | + + + + + | Narrative | Performed At | + + + | Urine culture not ordered. | [facility] | | [facility] | | | [facility] | | | - LABORATORY | + + + + + + + + | Performing | Address | City/State/Zipcode | Phone Number | | Organization | | | | + + + + + | [facility] | [address] | [place] | [phone] | | [facility] | | [address] | | | - LABORATORY | | | | + + + + + documented in this encounter Visit Diagnoses Not on filedocumented in this encounter"
--- OUTSIDE RECORDS SUMMARY | ~2020-09-05 | XMS | Encounter Summary ---
Demographics + + + | Address | [address] | | | [place] [address] | + + + | Home Phone | | + + + | Preferred Language | Unknown | + + + | Marital Status | Single | + + + | Mandaeism Affiliation | 1059 | + + + | Race | Unknown | + + + | Ethnic Group | Not or | + + + Author + + + | Author | [facility] | | | and [place] | + + + | Organization | [facility] | | [...] | | | | | [place] [address] | | + + + + + | Concha Zeeshanletty | ECON | [address] | | | | | [place] [address] | | + + + + + Care Team Providers + +------+ + | Care Distribution Estimator Name | Role | Phone | + +------+ + | uKrt Campbell DO | PCP | | + +------+ + Reason for Referral Evaluate & Treat (Routine) + + + + + + + | Status | Reason | Specialty | Diagnoses / | Referred By | Referred To | | | | | Procedures | Contact | Contact | + + + + + + + | Authorized | Specialty | Cardiology | Diagnoses | V[place], | [facility] | | | Services | | Paroxysmal | Kurt Lennox, DO | Cardiology | | | Required | | supraventric | [address] | [address] | | | | | [address] | [address] [place] | [place], | | | | | tachycardia | [place], [place] | [place] | | | | | ([facility]) | [address] | [address] | | | | | Tachycardia, | Phone: | Phone: | | | | | unspecified | [phone] | [phone] | | | | | | Fax: | Fax: | | | | | Palpitations | [phone] | [phone] | | | | | Procedures | | | | | | | [facility] - [facility] | | | | | | | PT, LAST | | | | | | | SEEN 05-18-19 | | | + + + + [...] + + | 12/10/ | Telephone | [facility] | Kurt Campbell, | Referral (Follow up) | | 2019 | | [facility] [place] | DO [address] | | | | | [address] | [place] | | | | | [place] | [address] | | | | | [address] | | | | | | [phone] | | | +--------+ + + + [...] Telephone Encounter - Valerie Tan LPN - 12/10/2019 4:44 PM PSTReceived referral foll ow up request for patient to see DR. Coronel on 12/17/2019 Referral done eleph one Encounter - Valerie Tan LPN - 12/10/2019 4:44 PM PST----- Message from Rama lemon sent at 12/10/2019 2:45 PM PST ----- Regarding: [facility] - NEW CARDIOLOGY REFERRAL NEEDED This is an established Dr. Coronel cardiology patient that has a follow-up appointment sched [facility] on 12-17-19 and needs a new cardiology referral. Please have your provider create a new order for a cardiology referral using the following diagnosis: I47.1 - R00.0 - R00.2 Thank you. documented in this encounter Plan of Treatment +--------+ + + + + | Date | Type | Specialty | Care Team | Description | +--------+ + + + + | 09/07/ | Office | Cardiology | Tawana Mcdonald | | 2019 | Visit | | GL[address] | | | | | | [place] | | | | | | [place] [address] | | | | | | [phone] | | | | | | | | +--------+ + + + + | 09/22/ | Office | Physical Medicine | Gonzalo Merchant, | | 2019 | Visit | and Rehabilitation | MD [address] | | | | | | [place] | | | | | | [address] | | | | | | | | +--------+ + + + + | 09/29/ | Virtual | Pain Medicine | Peggy Arreola | | | 2019 | Office | | [address] | | | | Visit | | [place] | | | | | | [place] | | | | | | [place] [address] | | | | | | [phone] | | | | | | | | +--------+ + + + + | 01/24/ | Office | Family Medicine | Kurt Campbell, | | | 2020 | Visit | | DO [address] | | | | | | [place] | | | | | | [address] | | | | | | | | +--------+ + + + + + + +--------+ + + | Name | Type | Priori | Associated Diagnoses | Order Schedule | | | | ty | | | + + +--------+ + + | * [facility] | Outpatient | Routin | Paroxysmal | Ordered: 12/10/2019 | | Cardiology - AMB | Referral | e | supraventricular | | | Referral | | | tachycardia (HCC) | | | | | | Tachycardia, | | | | | | unspecified | | | | | | Palpitations | | + + +--------+ + + documented as of this encounter Visit Diagnoses + + | Diagnosis | + + | Paroxysmal supraventricular tachycardia (HCC) - Primary Paroxysmal supraventricular | | tachycardia | + + | Tachycardia, unspecified | + + | Palpitations | + + documented in this encounter"
--- OUTSIDE RECORDS SUMMARY | ~2020-09-05 | XMS | Encounter Summary ---
Demographics + + + | Address | [address] | | | [place] [address] | + + + | Home Phone | | + + + | Preferred Language | Unknown | + + + | Marital Status | Single | + + + | Yarsani Affiliation | 1059 | + + + [...] | | | | | [place] [address] | | + + + + + | Concha Paulino | ECON | [address] | | | | | [place] [address] | | + + + + + Care Team Providers + +------+ + | Care Crew Boat Operator Name | Role | Phone | + +------+ + | Kurt Campbell DO | PCP | | + +------+ + Reason for Visit + + + | Reason | Comments | + + + | Procedure | | + + + Encounter Details +--------+ + + + + | Date | Type | Department | Care Team | Description | +--------+ + + + + | 02/24/ | Procedure | [facility] [place] | Gonzalo Merchant, | Trigger point of | | 2020 | visit | PHYSIATRY [address] | MD [address] | thoracic region | | | | [address] | [place] | (Primary Dx) | | | | [place] | [address] | | | | | [address] | | | | | | [phone] | | | +--------+ + + + [...] + + + | Blood Pressure | 105/72 | 02/25/2020 4:15 PM | | | | | PDT | | + + + + + | Pulse | 86 | 02/25/2020 4:15 PM | | | | | PDT [...] + + + + | Weight | 48.5 kg (107 lb) | 02/25/2020 4:15 PM | | | | | PDT | | + + + + + | Height | 157.5 cm (5' 2") | 02/25/2020 4:15 PM | | | | | PDT | | + + + + + | Body Mass Index | 19.57 | 02/25/2020 4:15 PM | | | | | PDT [...] Instructions Patient Instructions Gonzalo Merchant MD - 02/25/2020 3:50 PM PDTIf you develop any signs of infection (e.g. Fever, chills, redness, warmth, drainage) seek emergent medical attention and inform the clinic. Feel free to use ice, massage, and stretch after your injections to day. Please avoid direct heat, over the injections site, for 3 days following injection. documented in this encounter Progress Notes Gonzalo Merchant MD - 02/25/2020 3:50 PM PDTFormatting of this note might be different fro m the original. Diagnosis: 1. Trigger point of thoracic region Procedure: Thoracic paraspinal muscle trigger point injections Procedure Detail: Informed consent was obtained. Risk, benefits, and alternative treatmen ts were reviewed. Risks reviewed included but not limited to: bruising, bleeding, infection , damage to adjacent structures, disability and . The risk of skin discoloration from steroid injection was reviewed. The risk of pneumothorax, need for hospitalization, ventila tion, and emergent medical care was reviewed. Once informed consent was obtained two 5 ml syringes was/were prepared. Each syringe conta ined 1 ml of DepoMedrol 20 mg/ml, 2 ml of lidocaine 1% and 2 ml of 0.5% ropivacaine. Each s yringe had a total medication volume of 5 ml. The trigger points were identified anatomically, with palpation, and reproduction of pain. The skin over each of the trigger points was cleaned with an alcohol swab prior to injectio n. A 25 gauge 1-1/2 inch needle was used for all trigger point injections. The medication was injected evenly between 6 separate trigger points. 2.5 ml of medication from the second syringe was not needed, and unavoidably wasted. At each trigger point, once medication wa s injected, the needle was redirected in a ray-like fashion radiating out from the central i nsertion point of the needle. The muscles injected today include: left rhomboid, right rho mboid, right trapezius, and right erector spinae muscles. Renny Saravia was discharged from the [...] | | | | | | [place] [address] | | | | | | [phone] | | | | | | | | +--------+ + + + + | 09/22/ | Office | Physical Medicine | Gonzalo Merchant, | | | 2019 | Visit | and Rehabilitation | [address] | | | | | | [place] | | | | | | [address] | | | | | | | | +--------+ + + + + | 09/29/ | Virtual | Pain Medicine | Peggy Arreola | | | 2019 | Office | | [address] | | | | Visit | | [place] | | | | | | [place], | | | | | | [place] [address] | | | | | | [phone] | | | | | | | | +--------+ + + + + | 01/24/ | Office | Family Medicine | Kurt Campbell, | | | 2020 | Visit | | DO [address] | | | | | | [place] | | | | | | [address] | | | | | | | [...] 8 mL 8 | Given by | 02/25/20 | 8 mLs | | Other | | mL, Intramuscular, ONCE, Amrita | Other | 20 4:48 | | | (Comment | | 02/25/20 at 1700, For 1 dose | | PM PDT | | | ) | + + + +-------+------+ + +---+---+ | | | +---+---+ + + + +-------+---+ + | methylPREDNISolone acetate | Given by | 02/25/20 | 40 mg | | Other | | (DEPO-MEDROL) 20 mg/mL injection | Other | 20 4:49 | | | (Comment | | 40 mg 40 mg, Intramuscular, | | PM PDT | | | ) | | ONCE, Amrita 02/25/20 at 1700, For 1 | | | | | | | dose, Not for IV use., | | | | | | + + + +-------+---+ + +---+---+ | | | +---+---+ documented in this encounter
--- OUTSIDE RECORDS SUMMARY | ~2020-09-05 | XMS | Encounter Summary ---
Demographics + + + | Address | [address] [facility] [facility] | | | [place] [address] | + + + | Home Phone | | + + + | Preferred Language | Unknown | + + + | Marital Status | Single | + + + | Mosque Affiliation | [id number] | + + + | Race | Unknown | + + + | Ethnic Group | Not or | + + + Author + + + | Author | [facility] | | | and [place] | + + + | Organization | [facility] | | | and [...] | | | | | [place] [address] | | + + + + + | Concha Paulino | ECON | [address] | | | | | [place] [address] | | + + + + + Care Team Providers + +------+ + | Care Commodity Supervisor Name | Role | Phone | + +------+ + | Kurt Campbell DO | PCP | | + +------+ + Reason for Visit + + + | Reason | Comments | + + + | Follow-up | monthly follow up | + + + | Rash | rash has improved. | + + + | Anxiety | anxiety and depression is still there but has improved since the | | | last visit | + + + | Depression | | + + + Encounter Details +--------+---------+ + + + | Date | Type | Department | Care Team | Description | +--------+---------+ + + + | 04/01/ | Office | [facility] | Kurt Campbell, | Anxiety (Primary | | 2019 | Visit | [facility] [place] | DO [address] | Dx); Depression, | | | | [address] | [place] | unspecified | | | | [place] | [address] | depression type; | | | | [address] | | Pityriasis rosea; | | | | [phone] | | and not yet | | | | | | delivered in first | | | | | | trimester | +--------+---------+ + + + Social History [...] + + + | Blood Pressure | 108/70 | 04/01/2019 2:38 PM | | | | | PDT | | + + + + + | Pulse | 83 | 04/01/2019 2:38 PM | | | | | PDT | | + + + + + | Temperature | 37.2 C (99 F) | 04/01/2019 2:38 PM | | | | | PDT | | + + + + + | Respiratory Rate | 16 | 04/01/2019 2:38 PM | | | | | PDT | | + + + + + | Oxygen Saturation | 98% | 04/01/2019 2:38 PM | | | | | PDT | | + + + + + | Inhaled Oxygen | - | - | | | Concentration | | | | + + + + + | Weight | 47.1 kg (103 lb 13.4 | 04/01/2019 2:38 PM | | | | oz) | PDT | | + + + + + | Height | - | - | | + + + + + | Body Mass Index | 18.39 | 03/12/2019 11:11 AM | | | | | PDT [...] documented as of this encounter Progress Notes Kurt Campbell DO - 04/01/2019 2:30 PM PDTFormatting of this note might be different fro m the original. Subjective: Renny Saravia is a 19 y.o. female patient of Kurt Campbell DO. Chief Complaint: Follow-up (monthly follow up); Rash (rash has improved.); Anxiety (anxiety and depression is still there but has improved since the last visit); and Depression HPI Pt is here for f/u of depression and anxiety. Depression is improved. Not as "gallagher" and sad. Pt denies suicidal thought . Anxiety is the bigger problem now. Panic attacks in the night. Pt worries about her body. Worries about her HR. Know that some fears are irrational but it causes stress and worry anyway. Has always had health related anxiety. Worse since her grandmother . She has a supportive boyfriend. Ok relationship with her family. Was given a Rx for Trazodone. Patient's rash from pityriasis rosea has almost completely resolved with only minimal resid ual redness on her trunk. No itching and no new lesions. Patient recently found out she was . She has had serial serum hCGs which have been increasing. Her REMOTE CONTROL ASSEMBLER is Dr. Monsalve. She has not had an initial OB visit yet. She has needed antidepressant medication with her last as well. She was on Zolof t throughout her last at a low dose. She is aware of the risks of antidepressant medications during but was also aware that she does not do well without them. Allergies Allergen Reactions Rey Flavor Hives Effexor [Venlafaxine] Anaphylaxis Nystatin Swelling Omeprazole Shortness Of Breath Penicillins Hives and Nausea And Vomiting Sulfa Antibiotics Shortness Of Breath Aspirin Other (See Comments) fever Fish Oil Unknown Whooping cough injection/ extreme reaction Macrobid [Nitrofuran Derivatives] Nausea And Vomiting Penicillins Medications: She has a current medication list which includes the following prescription(s): acetaminoph en, albuterol, albuterol, diphenhydramine, epinephrine auto-injector, flovent hfa, ibuprofen , misc natural products, sertraline, and trazodone. Past Medical History She has a past [...] surgical history that includes Dental surgery; Colonoscopy; and Upper gastro intestinal endoscopy. Family History: Her family history includes Alcohol abuse in her maternal grandfather; Arthritis in her mat ernal grandfather, maternal grandmother, and paternal grandmother; Asthma in her father and mother; Bipolar disorder in her mother; COPD in her maternal grandmother, mother, and patern al grandfather; Cancer in her father, maternal grandfather, paternal grandfather, and patern al grandmother; Cardiomyopathy in an other family member; Colon cancer (age of onset: 42) in her father; Depression in her father, maternal grandmother, and mother; Diabetes in her pat ernal grandmother; Early in her sister; Emphysema in her mother; Heart defect in her m aternal grandmother; Heart disease in her maternal grandmother; Heart surgery in her materna l grandmother; High blood pressure in her maternal grandmother and mother; High cholesterol in her maternal grandmother and mother; Kidney disease in her mother; Mental illness in her father and mother; Miscarriages / stillbirths in her maternal grandmother; Other (see commen t) in her father and maternal aunt; Other (see comment) (age of onset: 47) in her maternal g randfather; Pulmonary embolism in her maternal grandmother; Stroke in her maternal grandmoth er. Social History: Social History Socioeconomic History Marital status: Single Spouse name: Not on file Number of children: Not on file Years of education: Not on file Highest education level: Not on file Tobacco Use Smoking status: Former Smoker Packs/day: 0.50 Years: 6.00 Pack years: 3.00 Last attempt to quit: 2017 Years since quittin.3 Smokeless tobacco: Current User Tobacco comment: vaping right now 3 mg nicotine daily Substance and Sexual Activity Alcohol use: Not Currently Alcohol/week: 3.0 oz Types: 5 Glasses of wine per week Drug use: No Sexual activity: Yes Partners: Male control/protection: Yes Social History Narrative Lives with bio mom and m-grandmother Review of Systems Constitutional: Positive for fatigue. Negative for activity change, appetite change, chills , diaphoresis, fever and unexpected weight change. Respiratory: Negative. Negative for cough, shortness of breath and wheezing. Cardiovascular: Positive for palpitations. Negative for chest pain and leg swelling. Gastrointestinal: Positive for nausea. Skin: Positive for rash (resolving.). Neurological: Negative. Psychiatric/Behavioral: Positive for dysphoric mood. Negative for agitation, self-injury, s leep disturbance and suicidal ideas. The patient is nervous/anxious. Objective: Vitals: 04/01/19 1438 BP: 108/70 Pulse: 83 Resp: 16 Temp: 37.2 C (99 F) TempSrc: Temporal SpO2: 98% Weight: 47.1 kg (103 lb 13.4 oz) Physical Exam Constitutional: She is oriented to person, place, and time. She appears well-developed and well-nourished. No distress. HENT: Head: Normocephalic and atraumatic. Eyes: Conjunctivae are normal. Right eye exhibits no discharge. Left eye exhibits no discha rge. Neck: Neck supple. No JVD present. Cardiovascular: Normal rate, regular rhythm and normal heart sounds. No murmur heard. Pulmonary/Chest: Effort normal and breath sounds normal. No respiratory distress. She has n o wheezes. She has no rales. Lymphadenopathy: She has no cervical adenopathy. Neurological: She is alert and oriented to person, place, and time. Skin: Skin is warm and dry. Rash (only mild residual rash present on trunk) noted. She is n ot diaphoretic. Psychiatric: She has a normal mood and affect. Her behavior is normal. Nursing note and vitals reviewed. Ortho Exam Results for orders placed or performed in visit on 03/12/19 ECG 12 lead Result Value Ref Range VENTRICULAR RATE EKG 70 BPM ATRIAL RATE 70 BPM P-R INTERVAL 148 ms QRS DURATION 84 ms Q-T INTERVAL 384 ms Q-T INTERVAL (CORRECTED) 414 ms P WAVE AXIS 6 degrees QRS AXIS 58 degrees T AXIS 54 degrees INTERPRETATION TEXT Normal sinus rhythm Low voltage QRS Borderline ECG When compared with ECG of 14-FEB-2018 19:26, Vent. rate has decreased BY 80 BPM Nonspecific T wave abnormality no longer evident in Lateral leads Confirmed by ELIO YANES MD ([id number]) on 03/13/2019 2:02:37 PM Assessment and Plans: 1. Anxiety sertraline (ZOLOFT) 50 mg tablet 2. Depression, unspecified depression type sertraline (ZOLOFT) 50 mg tablet 3. Pityriasis rosea 4. and not yet delivered in first trimester 1. Anxiety Patient continues to struggle with anxiety especially. We discussed that for her anxiety i ncreasing the Zoloft 200 mg would likely be beneficial. She is established with [facility] in [place] for mental health as well. They did not adjust her dose. At the end of the appointment she let me know that she is now . She showed me posi tive blood hCG test done by her REMOTE CONTROL ASSEMBLER Dr. Monsalve. The patient has struggled with mood during pregnancies in the past. She was on sertraline at a low dose throughout her last . At this time she feels like she needs some support with this medication. She is aware of p otential risks in although I think that Zoloft is 1 of the safest medications to c onsider if needed during . I will hold off on increasing her dose but discussed th is with Dr. Monsalve. - sertraline (ZOLOFT) 50 mg tablet; Take 1 tablet by mouth Daily. Dispense: 30 tablet; Ref ill: 2 2. Depression, unspecified depression type No suicidal thoughts. Improvement in depression compared to last visit. - sertraline (ZOLOFT) 50 mg tablet; Take 1 tablet by mouth Daily. Dispense: 30 tablet; Ref ill: 2 3. Pityriasis rosea Almost completely resolved No scribe was used for this visit Care instructions and warning signs were discussed. Medications per orders. Side effects discussed. Labs and investigations per orders. This note is dictated using [employer] voice recognition software. This note was dictated but not proofread. It may contain some grammatical errors. documented in this encounter Plan of Treatment [...] | | | | | [place] [address] | | | | | | [phone] | | | | | | | | +--------+ + + + + | 09/22/ | Office | Physical Medicine | Gonzalo Merchant, | | | 2019 | Visit | and Rehabilitation | [address] | | | | | | [place] | | | | | | [address] | | | | | | | | +--------+ + + + + | 09/29/ | Virtual | Pain Medicine | Peggy Arreola | | | 2019 | Office | | [address] | | | | Visit | | [place] | | | | | | [place], | | | | | | [place] [address] | | | | | | [phone] | | | | | | | | +--------+ + + + + | 01/24/ | Office | Family Medicine | Kurt Campbell, | | | 2020 | Visit | | [address] | | | | | | [place] | | | | | | [address] | | | | | | | | +--------+ + + + + documented as of this encounter Visit Diagnoses + + | Diagnosis | + + | Anxiety - Primary Anxiety state, unspecified | + + | Depression, unspecified depression type | + + | Pityriasis rosea | + + | and not yet delivered in first trimester | + + documented in this encounter
--- OUTSIDE RECORDS SUMMARY | ~2020-09-05 | XMS | Encounter Summary ---
Demographics + + + | Address | [address] [facility] | | | [place] [address] | + + + | Home Phone [...] + + + | Author | [facility] | | | and [place] | + + + | Organization | [facility] | | [...] | | | | | [place] [address] | | + + + + + | Concha Zeeshanletty | ECON | [address] | | | | | [place] [address] | | + + + + + Care Team Providers + +------+ + | Care Cell Tester Name | Role | Phone | + [...] + + | Authorized | Specialty | Psychiatry | Diagnoses | [facility], | [employer] | | | Services | | Chronic | Kurt High DO | HELPING | | | Required | | fatigue | [address] | [address] | | | | | syndrome | [address] [place] | [place] | | | | | Anxiety | [place] | [address] | | | | | Panic | [address] | [place], | | | | | attacks | Phone: | [place] [address] | | | | | | [phone] | Phone: | | | | | | Fax: | [phone] | | | | | | [phone] | Fax: | | | | | | | [phone] | + + + + + + + Reason for Visit +---------+--------+ + | Reason | Onset | Comments | | | Date | | +---------+--------+ + | Fatigue | 08/18/ | | | | 2019 | | +---------+--------+ + Encounter Details +--------+ + + + + | Date | Type | Department | Care Team | Description | +--------+ + + + + | 08/18/ | Telephone | [facility] | Kurt Campbell, | Fatigue | | 2020 | | [facility]IC[facility] [place] | DO [address] | | | | | [address] | [place], [place] | | | | | [place], [place] | [address] | | | | | [address] | | | | | | [phone] | | | +--------+ + + + [...] encounter Miscellaneous Notes Telephone Encounter - Lindsey Gonzalez, Home Health Care Case Manager - 08/19/2020 10:11 AM PDTProvided information to patient, she will make contact elephone Encounter - Kurt Campbell DO - 0 9:48 AM PDTReferral placed to [facility] usually requires the patient to make contact and do the intake on their own. Please give her the phone number for comprehensive mental health. Typically they will have her come in the morning for an intake and then schedule her with a provider after that.Elec tronically signed by Kurt Campbell DO at 08/19/2020 9:49 AM PDTTelephone Encounter - Felisa Steel RN - 08/19/2020 9:17 AM PDTPatient returns call. Relayed Dr Campbell's message to patient. She agrees to a referral to psychiatry. Reviewed the referral process with patient. elephone Encounter - Lindsey Gonzalez, Home Health Care Case Manager - 07/27 4:50 PM PDTAttempted to reach patient, left VM to return our call Electronically sig marcial by Lindsey Gonzalez, Home Health Care Case Manager at 08/18/2020 4:50 PM PDTTelephone Encounter - Kurt Pulliam DO - 08/18/2020 1:10 PM PDTI don't think your fatigue symptoms fit with narco lepsy. Since we have not found a cause for her fatigue the next step could be to have her see raimundo oconnor for evaluation for chronic fatigue syndrome. I will place a referral if she would like to proceed. elephone Encounter - Steph Leavitt RN - 08/18/2020 10:43 AM PDTPatient wrote in via My Chart: I was just wondering, with the symptoms of my fatigue being so persistent over the years an d other symptoms, could there be a chance that it's narcolepsy? I know it's probably not, bu t truly I am just getting frustrated with myself for being so tired all of the time and look ing for something. Thank you! documented in this encounter Plan of Treatment [...] | | | | | | [place] [address] | | | | | | [phone] | | | | | | | | +--------+ + + + + | 09/22/ | Office | Physical Medicine | Gonzalo Merchant, | | | 2019 | Visit | and Rehabilitation | [address] | | | | | | [place] | | | | | | [address] | | | | | | | | +--------+ + + + + | 09/29/ | Virtual | Pain Medicine | Peggy Arreola | | 2019 | Office | | [address] | | | | Visit | | [place] | | | | | | [place], | | | | | | [place] [address] | | | | | | [phone] | | | | | | | | +--------+ + + + + | 01/24/ | Office | Family Medicine | Kurt Campbell, | | | 2020 | Visit | | DO [address] | | | | | | [place] | | | | | | [address] | | | | | | | | +--------+ + + + + + + +--------+ + + | Name | Type | Priori | Associated Diagnoses | Order Schedule | | | | ty | | | + + +--------+ + + | Ambulatory referral | Outpatient | Routin | Chronic fatigue | Ordered: 08/19/2020 | | to Psychiatry | Referral | e | syndrome Anxiety | | | | | | Panic attacks | | + + +--------+ + + documented as of this encounter Visit Diagnoses + + | Diagnosis | + + | Chronic fatigue syndrome - Primary | + + | Anxiety Anxiety state, unspecified | + + | Panic attacks Panic disorder without agoraphobia | + + documented in this encounter"
--- OUTSIDE RECORDS SUMMARY | ~2020-09-05 | XMS | Encounter Summary ---
Demographics + + + | Address | [address] [facility] [address] [facility] | | | [place] [address] | + + + | Home Phone [...] | | | | | [place] [address] | | + + + + + | Concha Paulino | ECON | [address] | | | | | [place] [address] | | + + + + + Care Team Providers + +------+ + | Care Assembler [employer] Name | Role | Phone | + +------+ + | Leonid Osorio MD | PCP | | + +------+ + Encounter Details +--------+ + + + + | Date | Type | Department | Care Team | Description | +--------+ + + + + | 07/22/ | Documentati | [facility] | Nigel Wilson | | | 2015 | on | for Congenital Heart | MD [place] [address] | | | | Disease [address] | | | | [address] | [place] [address] | | | | | [place] | [phone] | | | | | [address] | | | | | | [phone] | | | +--------+ + + + [...] | | | | | [place] [address] | | | | | | [phone] | | | | | | | | +--------+ + + + + | 09/22/ | Office | Physical Medicine | Gonzalo Merchant, | | | 2019 | Visit | and Rehabilitation | MD [address] | | | | | | [place] | | | | | | [id number] | | | | | | | | +--------+ + + + + | 09/29/ | Virtual | Pain Medicine | Peggy Arreola | | 2019 | Office | | [address] | | | | Visit | | [place] | | | | | | [place], | | | | | | [place] [address] | | | | | | [phone] | | | | | | | | +--------+ + + + + | 01/24/ | Office | Family Medicine | Kurt Campbell, | | | 2020 | Visit | | DO [address] | | | | | | [place] | | | | | | [address] | | | | | | | | +--------+ + + + + documented as of this encounter Visit Diagnoses Not on filedocumented in this encounter"
--- OUTSIDE RECORDS SUMMARY | ~2020-09-05 | XMS | Encounter Summary ---
Demographics + + + | Address | [address] [facility] | | | [place] [address] | + + + | Home Phone | | + + + | Preferred Language | Unknown | + + + | Marital Status | Single | + + + | Mu-Ism Affiliation | 1059 | + + + | Race | Unknown | + + + | Ethnic Group | Not or | + + + Author + + + | Author | [facility] | | | and [place] | + + + | Organization | [facility] | | | [...] | | | | | [place] [address] | | + + + + + | Concha Paulino | ECON | [address] | | | | | [place] [address] | | + + + + + Care Team Providers + +------+ + | Care Business Planner Name | Role | Phone | + +------+ + | Kurt Campbell DO | PCP | | + +------+ + Reason for Visit Auth/Cert +--------+--------+ + + + + | Status | Reason | Specialty | Diagnoses / | Referred By | Referred To | | | | | Procedures | Contact | Contact | +--------+--------+ + + + + | | | | Diagnoses | | Nuria, | | | | | Special | | Kanu David, | | | | | screening | | MD [address] | | | | | for | | [address] | | | | | malignant | | [place], | | | | | neoplasms, | | [place] [address] | | | | | colon | | Phone: | | | | | Family hx of | | [phone] | | | | | colon | | Fax: | | | | | cancer | | [phone] | | | | | Procedures | | | | | | | [place] | | | | | | | COLONOSCOPY | | | | | | | FLX DX | | | | | | | W/COLLJ SPEC | | | | | | | WHEN PFRMD | | | | | | | [place] | | | | | | | COLONOSCOPY | | | | | | | W/BIOPSY | | | | | | | SINGLE/MULTI | | | | | | | PLE [place] | | | | | | | COLSC FLX | | | | | | | W/RMVL OF | | | | | | | TUMOR POLYP | | | | | | | LESION SNARE | | | | | | | TQ | | | | | | | COLONOSCOPY | | | +--------+--------+ + + + + Encounter Details +--------+ + + + + | Date | Type | Department | Care Team | Description | +--------+ + + + + | 05/27/ | Hospital | [facility] | Kanu Quiñones | Special screening | | 2019 | Encounter | [facility] | MD Charles [address] | for malignant | | | | [address] | [address] [place] | neoplasms, colon; | | | | [place], [place] | [place] [address] | Family hx of colon | | | | [address] | [phone] | cancer | | | | [phone] | | | +--------+ + + + [...] + + + | Blood Pressure | 116/75 | 05/27/2019 10:15 AM | | | | | PDT | | + + + + + | Pulse | 84 | 05/27/2019 10:15 AM | | | | | PDT | | + + + + + | Temperature | 36.7 C (98.1 F) | 05/27/2019 7:49 AM | | | | | PDT | | + + + + + | Respiratory Rate | 18 | 05/27/2019 9:52 AM | | | | | PDT | | + + + + + | Oxygen Saturation | 99% | 05/27/2019 10:15 AM | | | | | PDT | | + + + + + | Inhaled Oxygen | - | - | | | Concentration | | | | + + + + + | Weight | 48.8 kg (107 lb 9.4 | 05/27/2019 7:49 AM | | | | oz) | PDT | | + + + + + | Height | 160 cm (5' 3") | 05/27/2019 7:49 AM | | | | | PDT | | + + + + + | Body Mass Index | 19.06 | 05/27/2019 7:49 AM | | | | | PDT [...] as of this encounter Discharge Instructions Instructions Jacqueline Mann RN - 05/27/2019 Recovery After Procedural Sedation (Adult) You have been given medicine by vein to make you sleep during your procedure. This may have included both a pain medicine and sleeping medicine. Most of the effects have worn off. But you may still have some drowsiness for the next 6 to 8 hours. Home care Follow these guidelines when you get home: For the next 8 hours, you should be watched by a responsible adult. This person should m cindi sure your condition is not getting worse. Don't drink any alcoholfor the next [address], operate dangerous machinery,make important business or personal decisions , or sign legal documentsduring the next 24 hours. Note: Your healthcare provider may tell you not to take any medicine by mouth for pain or s leep in the next 4 hours. These medicines may react with the medicines you were given in the hospital. This could cause a much stronger response than usual. Follow-up care Follow up with your healthcare provider if you are not alert and back to your usual level o f activity within 12 hours. When to seek medical advice Call your healthcare provider right away if any of these occur: Drowsiness gets worse Weakness or dizziness gets worse Repeated vomiting You can't be awakened Date Last Reviewed: 09/11/201619997893-[address] [employer] [place] [address], [place] [address]. All righ ts reserved. This information is not intended as a substitute for professional medical care. Always follow your healthcare professional's instructions. Colonoscopy A camera attached to a flexible tube with a viewing lens is used to take video pictures. Colonoscopyis a test to view the inside of your lower digestive tract (colon and rectum). Sometimes it can show the last part of the small intestine (ileum).During the test, smal l pieces of tissue may be removed for testing. This is called a biopsy. Small growths, such as polyps, may also be removed. Why is colonoscopy done? The test is done to help look for colon cancer. And it can help find the source of abdomina l pain,bleeding,and changes in bowel habits. It may be needed once a year, depending on factors such as your: Age Health history Family health history Symptoms Results from any prior colonoscopy Risks and possible complications These include: Bleeding A puncture or tear in the colon Risks of anesthesia A cancer lesion not being seen Getting ready To prepare for the test: Talk with your healthcare provider about the risks of the test (see below). Also ask you r healthcare provider about alternatives to the test. Tell your healthcare provider about any medicines you take. Alsotell him or her about any health conditions you may have. Make sure your rectum and colon are empty for the test. Follow the diet and bowel prep i nstructions exactly. If you don t, the test may need to be rescheduled. Plan for a friend or family member to drive you home after the test. Colonoscopy provides an inside view of the entire colon. You may discuss the results with your doctor right away or at a future visit. During the test The test is usually done in the hospital on an outpatient basis. This means you go home the same day. The procedure takes about 30minutes. During that time: You are given relaxing (sedating) medicine through an IV line.You may be drowsy, or fu lly asleep. The healthcare provider will first give you a physical exam to check for anal andrecta l problems. Then the anus is lubricated and the scope inserted. If you are awake, you may have a feeling similar to needing to have a bowelmovement. Y ou may also feel pressure as air is pumped into the colon. It Ariela to pass gas during the procedure. Biopsy, polyp removal, or other treatments may be done during the test. After the test You may have gas right after the test. It can help to try to pass it to help prevent later bloating. Your healthcare provider may discuss the results with you right away. Or you may n eed to schedule a follow-up visit to talk about the results. After the test, you can go back to your normal eating andother activities. You may be tired from the sedation and need to rest for a few hours. Date Last Reviewed: 09/25/[id number] [facility]. [address] [place] [address]. All righ ts reserved. This information is not intended as a substitute for professional medical care. Always follow your healthcare professional's instructions. documented in this encounter Medications at Time [...] puffs into | 3 | 3 | 05/14/20 | | | MCG/ACT | the lungs Daily. | Inhaler | | 19 | | | inhalerIndications: | | | | | | | Mild intermittent | | | | | | | asthma without | | | | | | | complication | | | | | | + + + +---------+ + + | albuterol (PROAIR | Inhale 2 puffs into | 18 g | 0 | 05/14/20 | | | HFA) 90 mcg/puff | [...] +---------+ + + | buPROPion | Take 150 mg by mouth | | 0 | 05/08/20 | | | (WELLBUTRIN XL) 150 | Daily. | | | 19 | 9 | | mg 24 hr tablet | | | | | | [...] + + + +---------+ + + | | Place 1 each | | 0 | | | | etonogestrel-ethinyl | vaginally See Admin | | | | 9 | | estradiol | Instructions. Insert | | | | | | (NUVARING) | vaginally and leave | | | | | | 0.12-0.015 MG/24HR | in place for 3 | | | | | | vaginal ring | consecutive weeks, | | | | | | | then remove for 1 | | | | | | | week. | | | | | + + + +---------+ + + | ibuprofen (ADVIL, | Take 400 mg by mouth | | 0 | | | | MOTRIN) 200 mg | every 6 hours as | | | | 9 | | tablet | needed for Pain. | | | | | + + + +---------+ + + | Loratadine | Take 1 capsule by | | 0 | | | | (CLARITIN) 10 MG | mouth as needed. | | | | 0 | | CAPS | | | | | | + [...] | 0 | 04/08/20 | | | (ZOFRAN ODT) 4 mg | | | | 19 [...] + + documented as of this encounter H&P Notes Kanu Quiñones MD - 05/27/2019 9:24 AM PDT PRE-ENDOSCOPY HISTORY AND PRE-SEDATION ASSESSMENT PATIENT NAME: Renny Saravia : 2000 TODAY'S DATE: 05/27/2019 PLANNED PROCEDURE: colonoscopy PERTINENT HISTORY/INDICATION FOR PROCEDURE: Renny Saravia is a 19 y.o. female who is undergoing endoscopy for CRC screening and polyp surveillance, multiple family members wi th CRC. Pt had polyps on colonoscopy 3 yrs ago. PAST HISTORY: Past Medical History: Diagnosis Date Abdominal pain Adverse food reaction Allergic rhinitis Anaphylaxis Anemia Anxiety Arthralgia Asthma Blood in stool Chest pain Depression Environmental allergies History of pneumonia Hypotension Kidney cysts right Migraine OCD (obsessive compulsive disorder) Oppositional defiant disorder Substance abuse (HCC) PROBLEM LIST: Patient Active Problem List Diagnosis CONTUSION OF [...] neoplasms, colon Family hx of colon cancer PAST SURGICAL HISTORY Past Surgical History: Procedure Laterality Date COLONOSCOPY age 16 annual screening potentially recommended (cousin with early colon cancer. cousin ag ed 26, father aged 42) DENTAL SURGERY UPPER GASTROINTESTINAL ENDOSCOPY HOME MEDS: No current facility-administered medications on file prior to encounter. Current Outpatient Medications on File Prior to Encounter Medication Sig Dispense Refill acetaminophen (TYLENOL) 325 mg tablet Take 650 mg by mouth every 4 hours as needed for Pain. albuterol (PROAIR HFA) 90 mcg/puff inhaler Inhale 2 puffs into the lungs every 6 hours as needed for Wheezing or Shortness of Breath. 18 g 0 albuterol 2.5 mg/3 mL nebulizer solution Take 3 mLs by nebulization every 4 hours as ne eded for Wheezing or Shortness of Breath. 60 vial 0 buPROPion (WELLBUTRIN XL) 150 mg 24 hr tablet Take 150 mg by mouth Daily. 0 diphenhydrAMINE (BENADRYL) 25 mg tablet Take 25 mg by mouth every 6 hours as needed for Itching. EPINEPHrine auto-injector 0.3 mg/0.3 mL injection Inject 0.3 mLs into the muscle as nee ded for Anaphylaxis. 2 each 1 etonogestrel-ethinyl estradiol (NUVARING) 0.12-0.015 MG/24HR vaginal ring Place 1 each vaginally See Admin Instructions. Insert vaginally and leave in place for 3 consecutive week s, then remove for 1 week. FLOVENT HFA 44 MCG/ACT inhaler Inhale 2 puffs into the lungs Daily. 3 Inhaler 3 ibuprofen (ADVIL, MOTRIN) 200 mg tablet Take 400 mg by mouth every 6 hours as needed fo r Pain. Loratadine (CLARITIN) 10 MG CAPS Take 1 capsule by mouth as needed. MISC NATURAL PRODUCTS PO Take by mouth. Parris's Mints. Natural CBD 5-10 mg as needed fo r headaches ondansetron (ZOFRAN ODT) 4 mg disintegrating tablet as needed. 0 traZODone (DESYREL) 50 mg tablet Take 50 mg by mouth as needed. 0 ALLERGIES Allergies Allergen Reactions Rey Flavor Hives Effexor [Venlafaxine] Anaphylaxis Nystatin Swelling Omeprazole Shortness Of Breath Penicillins Hives and Nausea And Vomiting Sulfa Antibiotics Shortness Of Breath Aspirin Other (See Comments) fever Fish Oil Unknown Whooping cough injection/ extreme reaction Macrobid [Nitrofuran Derivatives] Nausea And Vomiting Penicillins Mallampati Class 2 (upper half of tonsil fossa) [place] [employer] of Anesthesia Grade:ASA 2 - A patient with mild systemic disease Sedation Plan:Moderate sedation EXAMINATION: BP 121/82 | Pulse 88 | Temp 36.7 C (98.1 F) (Temporal) | Resp 14 | Ht 1.6 m (5' 3") | Wt 48.8 kg (107 lb 9.4 oz) | SpO2 99% | ? No | BMI 19.06 kg/m General: Alert and oriented Throat: Normal Lungs: Clear Heart: Regular rate and rhythm with out significant murmur Abdomen: flat, normal bowel sounds. Soft, nontender 1. Available medical records have been reviewed. 2. Medication list reviewed. IMPRESSION: Patient appropriate for endoscopy. PLAN: 1. Proceed with procedure as stated above with moderate sedation/analgesia 2. Procedure, indications, risks and alternatives explained to patient/family and they agre ed to proceed and consent was signed. 3. Patient will be reevaluated immediately (1-2 minutes) before sedation administration and approved for the plan as stated above. Electronically Signed by: Kanu Quiñones MD 05/27/2019 [facility] VERIFICATION OF CONSENT (PARQ) The patient was counseled regarding the procedure, its indications, risks, potential compli cations and alternatives. Any questions were answered. Consent was obtained. Kanu Quiñones MD, 05/27/2019 9:24 [facility] Portions of this chart may have been created with [employer] voice recognition software. Occasi onal wrong-word or sound-alike substitutions may have occurred due to the inherent gonsalez itations of voice recognition software. Please read the chart carefully and recognize, using context, where these substitutions have occurred documented in thi s encounter Miscellaneous Notes D-C Instructions Provation - Kanu Quiñones MD - 05/27/2019 9:17 AM PDTDischarge Ins tructions for Colonoscopy Exams Patient: Renny Saravia : 2000 Acct: [id number] Exam Date: Monday, May 27, 2019 Doctor: KANU QUIÑONES MD You have had an examination of the gastrointestinal tract. The chances of difficulty following this procedure are minimal. The following instructions will assist you in your recovery. ACTIVITIES: Rest quietly until sedation wears off. DO NOT drive a motor vehicle or operate machinery for 24 hours after sedation. Be cautious making critical decisions for 24 hours after sedation. DIET: If throat has been sprayed, do not eat or drink for 1 hour after. Start with a swallow of tap water, if you experience any lack of sensation in your throat, wait another 30 - 60 minutes and start with water again. Once swallowing has returned to normal you may resume your usual diet unless otherwise instructed by your physician. DISCOMFORT: If you had a bowel exam, you may have some abdominal discomfort from the air put into your bowel during the exam. Moving about will help you pass this air. Sometimes the medications given to you during the exam can aggravate the veins. The chemical irritation can cause inflammation or pain along the arm with redness, swelling and warmth. This does not mean there is an infection. You can treat the affected area by applying warm,wet compresses (towels) 4 times a day for 20 minutes at a time until inflammation is resolved. REPORT TO YOUR DOCTOR: Unusual abdominal pain Chest pain or unusual shortness of breath Shoulder pain Nausea, vomiting Fever over 100 degrees, chills Signs of rectal bleeding (red or black stools) Any concern you have resulting from procedure You may reach your physician at . If unable to reach your physician, call [facility] Emergency Department at Ext. [phone] Your doctor recommends these additional instructions: Resume your regular diet. Your physician has recommended a repeat colonoscopy in five years for surveillance. The findings and recommendations have been discussed with you. These instructions have been explained to the patient and/or escort. A copy has been given to the patient/escort. Nurse Signature Patient Signature Escort Signature Date KANU QUIÑONES MD 05/27/2019 9:56:23 AM This report has been signed electronically. documented in this encounter Plan of Treatment [...] | | | | | [place] [address] | | | | | | [phone] | | | | | | | | +--------+ + + + + | 09/22/ | Office | Physical Medicine | Gonzalo Merchant, | | | 2019 | Visit | and Rehabilitation | MD Dane Johnson | | | | | | [place] | | | | | | [id number] | | | | | | | | +--------+ + + + + | 09/29/ | Virtual | Pain Medicine | Peggy Arreola | | | 2019 | Office | | [address] | | | | Visit | | [address] | | | | | | [place], | | | | | | [place] [address] | | | | | | [phone] | | | | | | | | +--------+ + + + + | 01/24/ | Office | Family Medicine | Kurt Campbell, | | | 2020 | Visit | | DO [address] | | | | | | [place] | | | | | | [address] | | | | | | | | +--------+ + + + + documented as of this encounter Procedures + +--------+ + + + | Procedure Name | Priori | Date/Time | Associated Diagnosis | Comments | | | ty | | | | + +--------+ + + + | DIAGNOSTIC REPORT - | | 06/02/2019 | | Results for this | | EXTERNAL SCAN | | 12:00 AM | | procedure are in the | | | | PDT | | results section. | + +--------+ + + + | COLONOSCOPY | | 05/27/2019 | Special screening | | | | | 9:24 AM | for malignant | | | | | PDT | neoplasms, colon | | | | | | Family hx of colon | | | | | | cancer | | + +--------+ + + + | COLONOSCOPY | Routin | 05/27/2019 | | Results for this | | | e | 9:17 AM | | procedure are in the | | | | PDT | | results section. | + +--------+ + + + | PATHOLOGY - EXTERNAL | | 02/24/2016 | | Results for this | | SCAN | | 12:00 AM | | procedure are in the | | | | PDT | | results section. | + +--------+ + + + | DIAGNOSTIC REPORT - | | 02/24/2016 | | Results for this | | EXTERNAL SCAN | | 12:00 AM | | procedure are in the | | | | PDT | | results section. | + +--------+ + + + documented in this encounter Results DIAGNOSTIC REPORT - EXTERNAL SCAN (06/02/2019 12:00 AM PDT) + + + | Narrative | Performed At | + + + | Ordered by an | | | unspecified provider. | | + + + COLONOSCOPY (05/27/2019 9:17 AM PDT) + + | Specimen | + + | | + + + + -+ | Narrative | Performed At | + + -+ | | [facility] | | GastroenterologyPatient Name: Renny SaraviaProluciana Date: 05/27/2019 | [facility] | | 9:17 AMMRN: [id number] #: [id number] of : | | | 2000Admit Type: AmbulatoryAge: 19Room: Endo Room 2Gender: | | | FemaleNote Status: FinalizedAttending MD: KANU QUIÑONES , | | | MDProcedure: ColonoscopyIndications: High risk | | | colon cancer surveillance: Personal history of | | | colonic polyps, Family history of colon cancer in a | | | first-degree relative, Family history of colon cancer | | | in multiple second-degree | | | relativesProviders: KANU QUIÑONES MD, Alisha | | | NENA Beltran, Laurie Hamm RN, | | | Norma Adame, TechnicianReferring MD: Kurt Campbell, DO | | | (Referring MD)Medicines: Fentanyl 200 micrograms IV, | | | Midazolam 8 mg IVComplications: No immediate | | | complications.Procedure: Pre-Anesthesia Assessment: - | | | Prior to the procedure, a History and Physical was performed, and | | | patient medications and allergies were reviewed. The patient is | | | competent. The risks and benefits of the procedure and the | | | sedation options and risks were discussed with the patient. All | | | questions were answered and informed consent was obtained. | | | Patient identification and proposed procedure were verified by | | | the physician and the nurse in the pre-procedure area in the | | | procedure room. Mental Status Examination: alert and oriented. | | | Airway Examination: Mallampati Class II (the uvula but not | | | tonsillar pillars visualized). Respiratory Examination: clear to | | | auscultation. CV Examination: normal. Prophylactic Antibiotics: The | | | patient does not require prophylactic antibiotics. Prior | | | Anticoagulants: The patient has taken no previous anticoagulant | | | or antiplatelet agents. ASA Grade Assessment: II - A patient | | | with mild systemic disease. After reviewing the risks and | | | benefits, the patient was deemed in satisfactory condition to | | | undergo the procedure. The anesthesia plan was to use monitored | | | anesthesia care (MAC). Immediately prior to administration of | | | medications, the patient was re-assessed for adequacy to receive | | | sedatives. The heart rate, respiratory rate, oxygen saturations, | | | blood pressure, adequacy of pulmonary ventilation, and response | | | to care were monitored throughout the procedure. The physical | | | status of the patient was re-assessed after the procedure. | | | After I obtained informed consent, the scope was passed under | | | direct vision. Throughout the procedure, the patient's blood | | | pressure, pulse, and oxygen saturations were monitored | | | continuously. The Colonoscope was introduced through the anus | | | and advanced to the terminal ileum. The colonoscopy was | | | performed without difficulty. The patient tolerated the | | | procedure well. The quality of the bowel preparation was evaluated | | | using the BBPS ([place] Bowel Preparation Scale) with scores of: | | | Right Colon = 3, Transverse Colon = 3 and Left Colon = 3 | | | (entire mucosa seen well with no residual staining, small | | | fragments of stool or opaque liquid). The total BBPS score | | | equals 9.Findings: The perianal and digital rectal examinations | | | were normal. The terminal ileum appeared normal. The | | | rectum, sigmoid colon, descending colon, transverse colon, ascending | | | colon and cecum appeared normal. The retroflexed view of | | | the distal rectum and anal verge was normal and showed no anal | | | or rectal abnormalities.Moderate Sedation: Moderate (conscious) | | | sedation was administered by the endoscopy nurse and supervised | | | by the endoscopist. The patient's oxygen saturation, heart | | | rate, blood pressure and response to care were monitored. Total | | | physician intraservice time was 32 minutes.Impression: - The | | | examined portion of the ileum was normal. - The rectum, sigmoid | | | colon, descending colon, transverse colon, ascending colon and | | | cecum are normal. - The distal rectum and anal verge are normal | | | on retroflexion view. - No specimens collected.Recommendation: | | | - The patient will be observed post-procedure, until all | | | discharge criteria are met. - Resume regular diet. | | | - Repeat colonoscopy in 5 years for surveillance. - The findings | | | and recommendations were discussed with the patient.KANU DAVID | | | MD NURIA05/27/2019 9:56:23 AMThis report has been signed | | | electronically.Number of Addenda: 0Note Initiated On: 05/27/2019 9:17 | | | AMScope Withdrawal Time: 0 hours 9 minutes 28 seconds Scope In: | | | 9:40:15 AMScope Out: 9:52:[address] [facility] | | | [place], [address] [place] [address] | | |Recommendation: | | | - The patient will be observed post-procedure, until all discharge | | | criteria are met. | | | - Resume regular diet. | | | - Repeat colonoscopy in 5 years for surveillance. | | | - The findings and recommendations were discussed with the patient. | | |KANU QUIÑONES MD | | |05/27/2019 9:56:23 AM | | |This report has been signed electronically. | | |Number of Addenda: 0 | | |Note Initiated On: 05/27/2019 9:17 AM | | |Scope Withdrawal Time: 0 hours 9 minutes 28 seconds | | |Scope In: 9:40:15 AM | | |Scope Out: 9:52:27 AM | | | [facility], [address] [facility], [place], [place] | | | [address] | | + + -+ + +---------+ + + | Performing | Address | City/State/Zipcode | Phone Number | | Organization | | | | + +---------+ + + | [facility] | | | | + +---------+ + + DIAGNOSTIC REPORT - EXTERNAL SCAN (02/24/2016 12:00 AM PDT) + + + | Narrative | Performed At | + + + | Ordered by an | | | unspecified provider. | | + + + PATHOLOGY - EXTERNAL SCAN (02/24/2016 12:00 AM PDT) + + + | Narrative | Performed At | + + + | Ordered by an | | | unspecified provider. | | + + + documented in this encounter Visit Diagnoses + + | Diagnosis | + + | Special screening for malignant neoplasms, colon | + + | Family hx of colon cancer Family history of malignant neoplasm of gastrointestinal | | tract | + + documented in this encounter Admitting Diagnoses + + | Diagnosis | + + | Special screening for malignant neoplasms, colon | + + | Family hx of colon cancer Family history of malignant neoplasm of gastrointestinal | | tract | + + documented in this encounter Administered Medications + +--------+ +--------+------+------+ | Medication Order | MAR | Action | Dose | Rate | Site | | | Action | Date | | | | + +--------+ +--------+------+------+ | fentaNYL (PF) injection PRN, | Given | 05/27/20 | 25 mcg | | | | Starting 05/27/19 at 0929 | | 19 9:44 | | | | | | | AM PDT | | | | + +--------+ +--------+------+------+ +-------+ +--------+---+---+ | Given | 05/27/20 | 25 mcg | | | | | 19 9:37 | | | | | | AM PDT | | | | +-------+ +--------+---+---+ | Given | 05/27/20 | 25 mcg | | | | | 19 9:35 | | | | | | AM PDT | | | | +-------+ +--------+---+---+ +---+---+ | | | +---+---+ + +---------+ +--------+-------+---+ | lactated ringers (LR) infusion | New Bag | 05/27/20 | 1,000 | 100 | | | at 100 mL/hr, Intravenous, | | 19 8:22 | mLs | mL/hr | | | CONTINUOUS, Starting Sat05/27/19 | | AM PDT | | | | | at 0845, Pre-op | | | | | | + +---------+ +--------+-------+---+ +---+---+ | | | +---+---+ + +-------+ +------+---+---+ | midazolam (VERSED) 1 mg/mL | Given | 05/27/20 | 1 mg | | | | injection PRN, Starting Sat | | 19 9:44 | | | | | 05/27/19 at 0935 | | AM PDT | | | | + +-------+ +------+---+---+ +-------+ +------+---+---+ | Given | 05/27/20 | 1 mg | | | | | 19 9:38 | | | | | | AM PDT | | | | +-------+ +------+---+---+ | Given | 05/27/20 | 1 mg | | | | | 19 9:35 | | | | | | AM PDT | | | | +-------+ +------+---+---+ +---+---+ | | | +---+---+ + +-------+ +------+---+---+ | midazolam (VERSED) 5 mg/mL | Given | 05/27/20 | 2 mg | | | | injection PRN, Starting Wed | | 19 9:31 | | | | | 05/27/19 at 0927 | | AM PDT | | | | + +-------+ +------+---+---+ +-------+ +------+---+---+ | Given | 05/27/20 | 3 mg | | | | | 19 9:27 | | | | | | AM PDT | | | | +-------+ +------+---+---+ +---+---+ | | | +---+---+ documented in this encounter
--- OUTSIDE RECORDS SUMMARY | ~2020-09-05 | XMS | Encounter Summary ---
Demographics + + + | Address | [address] | | | [place] [address] | + + + | Home Phone | | + + + | Preferred Language | Unknown | + + + | Marital Status | Single | + + + | Religion Affiliation | 1059 | + + + [...] | | | | | [place] [address] | | + + + + + | Concha Paulino | ECON | [address] | | | | | [place] [address] | | + + + + + Care Team Providers + +------+ + | Care Wildlife Protector Name | Role | Phone | + +------+ + | Leonid Osorio MD | PCP | | + +------+ + Reason for Visit +---------+--------+ + | Reason | Onset | Comments | | | Date | | +---------+--------+ + | Results | 11/21/ | | | | 2017 | | +---------+--------+ + Encounter Details +--------+ + + + + | Date | Type | Department | Care Team | Description | +--------+ + + + + | 11/21/ | Telephone | [facility] | Dede | Humza | | 2018 | | CARE [address] | Michael Soto MD | | | | | [place] | [address] | | | | | [address] | [place] | | | | | [phone] | [address] | | | | | | | [...] this encounter Miscellaneous Notes Telephone Encounter - Jenn Krishnamurthy Cert MA - 11/21/2018 3:42 PM PSTCalled pt and mom and notified them of note. Pt had no questions. elephone Encounanu r Jenn Turner Cert MA - 11/21/2018 3:41 PM PST----- Message from Michael burns MD sent at 11/21/2018 8:12 PST ----- The labs are all normal and reassuring. Please call patient as a courtesy. [email or web address] y signed by Gregg Couch MA at 11/21/2018 3:41 PM PSTdocumented in this encounter Plan of Treatment +--------+ [...] | | | | | | [place] [address] | | | | | | [phone] | | | | | | | | +--------+ + + + + | 09/22/ | Office | Physical Medicine | Gonzalo Merchant, | | | 2019 | Visit | and Rehabilitation | [address] | | | | | | [place] | | | | | | [address] | | | | | | | | +--------+ + + + + | 09/29/ | Virtual | Pain Medicine | Peggy Arreola | | | 2019 | Office | | [address] | | | | Visit | | [address] | | | | | | [place], | | | | | | [place] [address] | | | | | | [phone] | | | | | | | | +--------+ + + + + | 01/24/ | Office | Family Medicine | Kurt Campbell, | | | 2020 | Visit | | DO [address] | | | | | | [place] | | | | | | [address] | | | | | | | | +--------+ + + + + documented as of this encounter Visit Diagnoses Not on filedocumented in this encounter"
--- OUTSIDE RECORDS SUMMARY | ~2020-09-05 | XMS | Encounter Summary ---
Demographics + + + | Address | [address] | | | [place] [address] | + + + | Home Phone | | + + + | Preferred Language | Unknown | + + + | Marital Status | Single | + + + | Zoroastrian Affiliation | 1059 | + + + | Race | Unknown | + + + | Ethnic Group | Not or | + + + Author + + + | Author | [facility] | | | and [place] | + + + | Organization | [facility] | | | and [...] | | | | | [place] [address] | | + + + + + | Concha Paulino | ECON | [address] | | | | | [place] [address] | | + + + + + Care Team Providers + +------+ + | Care Latex Dipper Name | Role | Phone | + +------+ + PCP | Unavailable | + +------+ + Encounter Details +--------+ + + + + | Date | Type | Department | Care Team | Description | +--------+ + + + + | 05/27/ | Hospital | [facility] | | | | 2003 | Encounter | [facility] | | | | | | CENTER [address] | | | | | | [place] | | | | | | [address] | | | | | | [phone] | | | +--------+ + + + [...] | | | | | [place] [address] | | | | | | [phone] | | | | | | | | +--------+ + + + + | 09/22/ | Office | Physical Medicine | Gonzalo Merchant, | | | 2019 | Visit | and Rehabilitation | MD [address] | | | | | | [place] | | | | | | [address] | | | | | | | | +--------+ + + + + | 09/29/ | Virtual | Pain Medicine | Peggy Arreola | | | 2019 | Office | | [address] | | | | Visit | | [address] [address] | | | | | | [place] | | | | | | [place] [address] | | | | | | [phone] | | | | | | | | +--------+ + + + + | 01/24/ | Office | Family Medicine | Kurt Campbell, | | | 2020 | Visit | | DO [address] | | | | | | [place] | | | | | | [phone] | | | | | | | | +--------+ + + + + documented as of this encounter Visit Diagnoses Not on filedocumented in this encounter"
--- OUTSIDE RECORDS SUMMARY | ~2020-09-05 | XMS | Encounter Summary ---
Demographics + + + | Address | [address] | | | [place] [address] | + + + | Home Phone | | + + + | Preferred Language | Unknown | + + + | Marital Status | Single | + + + | Christian Affiliation | 1059 | + + + | Race | Unknown | + + + | Ethnic Group | Not or | + + + Author + + + | Author | [facility] | | | and [place] | + + + | Organization | [facility] | | | [...] | | | | | [place] [address] | | + + + + + | Concha Paulino | ECON | [address] | | | | | [place] [address] | | + + + + + Care Team Providers + +------+ + | Care Plastic Mixer Name | Role | Phone | + +------+ + PCP | Unavailable | + +------+ + Encounter Details +--------+ + + + + | Date | Type | Department | Care Team | Description | +--------+ + + + + | 08/09/ | Hospital | [facility] | | | | 2007 | Encounter | [facility] | | | | | | CENTER [address] | | | | | | [place] | | | | | | [address] | | | | | | [phone] | | | +--------+ + + + [...] | | | | | [place] [address] | | | | | | [phone] | | | | | | | | +--------+ + + + + | 09/22/ | Office | Physical Medicine | Gonzalo Merchant, | | | 2019 | Visit | and Rehabilitation | MD [address] | | | | | | [place] | | | | | | [address] | | | | | | | | +--------+ + + + + | 09/29/ | Virtual | Pain Medicine | Peggy Arreola | | | 2019 | Office | | [address] | | | | Visit | | [place] [address] | | | | | | [place] | | | | | | [place] [address] | | | | | | [phone] | | | | | | | | +--------+ + + + + | 01/24/ | Office | Family Medicine | Kurt Campbell, | | | 2020 | Visit | | DO [address]on [address] | | | | | | [place] | | | | | | [phone] | | | | | | | | +--------+ + + + + documented as of this encounter Visit Diagnoses Not on filedocumented in this encounter"
--- OUTSIDE RECORDS SUMMARY | ~2020-09-05 | XMS | Encounter Summary ---
Demographics + + + | Address | [address] [facility] [address] [facility] | | | [place] [address] | + + + | Home Phone | | + + + | Preferred Language | Unknown | + + + | Marital Status | Single | + + + | Mormon Affiliation | 1059 | + + + | Race | Unknown | + + + | Ethnic Group | Not or | + + + Author + + + | Author | [facility] | | | and [place] | + + + | Organization | [facility] | | | [...] | | | | | [place] [address] | | + + + + + | Concha Zeeshanletty | ECON | [address] | | | | | [place] [address] | | + + + + + Care Team Providers + +------+ + | Care Technical Agronomist Name | Role | Phone | + +------+ + | Kurt Campbell DO | PCP | | + +------+ + Reason for Visit Evaluate & Treat (Routine) + + + [...] | Services | | Paroxysmal | Kurt High DO | Cardiology | | | Required | | supraventric | [address] | [address] | | | | | ular | [address] [place] | [place], | | | | | tachycardia | [place], [place] | [place] | | | | | ([facility]) | [address] | [address] | | | | | Tachycardia, | Phone: | Phone: | | | | | unspecified | [phone] | [phone] | | | | | | Fax: | Fax: | | | | | Palpitations | [phone] | [phone] | | | | | Procedures | | | | | | | [facility] | | | | | | | PT, LAST | | | | | | | SEEN 05-18-19 | | | + + + + + + + Encounter Details +--------+---------+ + + + | Date | Type | Department | Care Team | Description | +--------+---------+ + + + | 12/17/ | Office | [facility] | Mcdonald Tawana | Palpitation (Primary | | 2020 | Visit | CARDIOLOGY [address] | [address] | Dx); Chest pain, | | | | [address] [place], | [address] [place] | unspecified type; | | | | [place] [id number] | [place] [address] | Tachycardia; SVT | | | | [phone] | [phone] | (supraventricular | | | | | | tachycardia) (HCC); | | | | | | Anemia, unspecified | | | | | | type | +--------+---------+ + + + Social History [...] + + + | Blood Pressure | 98/52 | 12/17/2019 1:00 PM | | | | | PST | | + + + + + | Pulse | 60 | 12/17/2019 1:00 PM | | | | | PST | | + + + + + | Temperature | - | - | | + + + + + | Respiratory Rate | 14 | 12/17/2019 1:00 PM | | | | | PST | | + + + + + | Oxygen Saturation | - | - | | + + + + + | Inhaled Oxygen | - | - | | | Concentration | | | | + + + + + | Weight | 45.8 kg (101 lb) | 12/17/2019 1:00 PM | | | | | PST | | + + + + + | Height | 160 cm (5' 3") | 12/17/2019 1:00 PM | | | | | PST | | + + + + + | Body Mass Index | 17.89 | 12/17/2019 1:00 PM | | | | | PST [...] of this encounter Patient Instructions Patient Instructions Tawana Mcdonald PA-C - 12/17/2019 1:00 PM PST1. You need to stop your caffeine and nicotine usage. 2. Start an exercise program,150 min per week of vigorous activity 3. Consider blue light therapy 4. Consider cognitive behavioral therapyElectronically signed by GLEN Sullivan t 12/17/2019 1:50 PM PST documented in this encounter Progress Notes Tawana Mcdonald PA-C - 12/17/2019 1:00 PM PSTFormatting of this note might be differen t from the original. PATIENT NAME: Renny Saravia : 2000: AGE: 19 y.o. REFERRED BY: Haresh Coronel MD PRIMARY CARE: Kurt Campbell DO CARDIOLOGY OFFICE VISIT Date of Service: 12/17/19 HISTORY OF PRESENT ILLNESS: Renyn Saravia is a 19 y.o. female with a history of anxiety, tobacco use, palpitati ons and tachycardia. She is being seen today for a follow-up visit. She presents alone tokings clark. Previously she had presented with her mother Concha. Since our initial consultation, patient underwent ambulatory monitoring as detailed below a s well as an echocardiogram. She continues to experience occasional episodes of anxiety, wh ich she believes is associated with sudden bouts of rapid heart rate. She also occasionally experiences with her episodes of palpitations which consist of sudden onset and offset, ass ociated with positional change at times as well as stress. She continues to use a vaping pen with low dose nicotine states that in the past she had be en smoking cigarettes. She has been working the [employer] shift from 11p until 8-10 am and has recently increased her caffeine intake due to this. She has poor sleep habits, and shoaibte n does not sleep adequate amounts. She is moderately active, but does not have a regular ex ercise program. She admits to uncontrolled anxiety She lives with her mother. She has not had leg swelling. She is able to sleep laying down at night without any sympto ms of shortness of breath. Pertinent historical clinical information: She was initially referred for further evaluation given long-standing history of episodic p alpitations and tachycardia. Patient states that she believes her symptoms date back to age 11 and describes very clearly episodic sensation of heart racing with sudden onset and sudd en termination without clear association with various factors. She believes that they have increased in frequency. She also believes that when she had presented to her local emergenc y department, workup was not thyroid enough. She definitely experiences some discomfort dur ing times of heart racing, but denies any associated severe lightheadedness or any history o f syncope. She is otherwise moderately active and denies any exertional symptoms or chest d iscomfort. She does describe ongoing history of anxiety/depression and believes that it is partially related/worsened by these episodes of palpitations. She denies use of any recreational drugs, energy drinks, or excess caffeine/stimulants. Of note, patient's mother states that she had another child, the patient's sibling, who d at age 9 and this may have been secondary to an undiagnosed cardiovascular etiology. Post mortem workup apparently was carried out at [facility]; no records are available for review. Patient gave to a child approximately 1-1/2 years ago and states that she experienced one episode of palpitations during but otherwise delivery was uneventful and her child is doing well. MEDICAL, SURGICAL, AND PERSONAL HISTORY Past Medical History: Diagnosis Date Abdominal pain Adverse food reaction Allergic rhinitis Anaphylaxis Anemia Anxiety Arthralgia Asthma Blood in stool Chest pain Depression Environmental allergies History of pneumonia Hypotension Kidney cysts right Migraine OCD (obsessive compulsive disorder) Oppositional defiant disorder Substance abuse (HCC) Past Surgical History: Procedure Laterality Date COLONOSCOPY age 16 annual screening potentially recommended (cousin with early colon cancer. cousin ag ed 26, father aged 42) COLONOSCOPY N/A 05/27/2019 Procedure: COLONOSCOPY; Surgeon: Kanu Kidd MD; Location: [facility] MEDICAL PROCEDURE UNIT DENTAL SURGERY UPPER GASTROINTESTINAL ENDOSCOPY Family History Problem Relation Age of Onset High blood pressure Mother Asthma Mother Emphysema Mother Bipolar disorder Mother COPD Mother Depression Mother High cholesterol Mother Kidney disease Mother Mental illness Mother Colon cancer Father 42 Other (see comment) Father angina Depression Father Asthma Father Mental illness Father Alcohol abuse Maternal Grandfather Other (see comment) Maternal Grandfather 47 rheumatic fever Arthritis Maternal Grandfather Cancer Maternal Grandfather High blood pressure Maternal Grandmother Heart surgery Maternal Grandmother 4x bypass Heart defect Maternal Grandmother hole in heart Pulmonary embolism Maternal Grandmother Arthritis Maternal Grandmother COPD Maternal Grandmother Depression Maternal Grandmother Heart disease Maternal Grandmother High cholesterol Maternal Grandmother Miscarriages / stillbirths Maternal Grandmother Stroke Maternal Grandmother Cardiomyopathy Other maternal great grandmother Cancer Maternal Aunt Early Sister Arthritis Paternal Grandmother Diabetes Paternal Grandmother Breast cancer Paternal Grandmother COPD Paternal Grandfather Cancer Paternal Grandfather Collagen disease Neg Hx Congenital heart disease Neg Hx Deafness Neg Hx Heart transplant Neg Hx Marfan syndrome Neg Hx Premature CHD Neg Hx Seizures Neg Hx Sudden Neg Hx Family Status Relation Name Status Mother Alive Father Perfecto MGF Milton [employer] Other (Not Specified) Jl Thornton (Not Specified) Sister Alisha Son Alive PGM Flor Alive PGF E.B. Alive Neg Hx (Not Specified) Social History Socioeconomic History Marital status: Single Spouse name: Not on file Number of children: Not on file Years of education: Not on file Highest education level: Not on file Tobacco Use Smoking status: Former Smoker Packs/day: 0.50 Years: 6.00 Pack years: 3.00 Last attempt to quit: 2017 Years since quittin.0 Smokeless tobacco: Current User Tobacco comment: vaping right now 3 mg nicotine occasionally Substance and Sexual Activity Alcohol use: Not Currently Alcohol/week: 5.0 standard drinks Types: 5 Glasses of wine per week Drug use: Not Currently Types: Marijuana Comment: CBD oil as needed Sexual activity: Yes Partners: Male control/protection: Yes Social History Narrative Lives with bio mom and m-grandmother CURRENT MEDICATIONS Current Outpatient Medications Medication Sig Dispense Refill acetaminophen (TYLENOL) 325 [...] XL) 150 mg 24 hr tablet Take 1 tablet by mouth Daily. 30 tablet 0 dicyclomine (BENTYL) 10 mg capsule Take 1 capsule by mouth every 6 hours as needed. 30 capsule 0 diphenhydrAMINE (BENADRYL) 25 mg tablet Take 25 mg by mouth every 6 hours as needed for Itching. EPINEPHrine auto-injector 0.3 mg/0.3 mL injection Inject 0.3 mLs into the muscle as nee ded for Anaphylaxis. 2 each 1 FLOVENT HFA 44 MCG/ACT inhaler Inhale 2 puffs into the lungs Daily. 3 Inhaler 3 Loratadine (CLARITIN) 10 MG CAPS Take 1 capsule by mouth as needed. LORazepam (ATIVAN) 0.5 mg tablet Take 0.5-1 tablets by mouth every 6 hours as needed fo r Anxiety (flying). 8 tablet 0 meclizine (ANTIVERT) 25 mg tablet take 1 to 2 tablets by mouth if needed for VERTIGO 0 MISC NATURAL PRODUCTS PO Take by mouth. Parris's Mints. Natural CBD 5-10 mg as needed fo r headaches ondansetron (ZOFRAN ODT) 4 mg disintegrating tablet as needed. 0 raNITIdine (ZANTAC) 150 MG capsule Take 1 capsule by mouth 2 times daily. 60 capsule 1 traZODone (DESYREL) 50 mg tablet Take 50 mg by mouth as needed. 0 No current facility-administered medications for this visit. ALLERGIES Allergies Allergen Reactions Rey Flavor Hives Effexor [Venlafaxine] Anaphylaxis Nystatin Swelling Omeprazole Shortness Of Breath Penicillins Hives and Nausea And Vomiting Sulfa Antibiotics Shortness Of Breath Aspirin Other (See Comments) fever Fish Oil Unknown Whooping cough injection/ extreme reaction Macrobid [Nitrofuran Derivatives] Nausea And Vomiting Penicillins Unknown ROS I have reviewed the Review of Systems form dated today and scanned into the media tab. OBJECTIVE: PHYSICAL EXAM There were no vitals taken for this visit. Physical Exam Constitutional: She is oriented to person, place, and time. She appears well-developed and well-nourished. She does not appear ill. No distress. HENT: Head: Normocephalic and atraumatic. Cardiovascular: Normal rate, regular rhythm, S1 normal, S2 normal, normal heart sounds and intact distal pulses. Exam reveals no gallop and no friction rub. No murmur heard. Pulses: Carotid pulses are 2+ on the right side and 2+ on the left side. Radial pulses are 2+ on the right side and 2+ on the left side. Posterior tibial pulses are 2+ on the right side and 2+ on the left side. Pulmonary/Chest: Effort normal and breath sounds normal. No respiratory distress. She has n o wheezes. She has no rales. Abdominal: Soft. Musculoskeletal: General: No edema. Neurological: She is alert and oriented to person, place, and time. Skin: Skin is warm and dry. No erythema. Vitals reviewed. ECG: None today Previously Reviewed by me notable for normal sinus rhythm, heart rate 70. LAB RESULTS: LIPID No results found for: CHOL, TRIG, HDL, LDL, CHOLHDL, LDLEX, HDLEX, TRIGEX, CHOLEX CHEMISTRY Lab Results Component Value Date GLU 93 02/13/2019 NA 140 02/13/2019 K 3.5 02/13/2019 CL 109 (H) 02/13/2019 CO2 26 02/13/2019 CALCIUM 9.3 02/13/2019 ALKPHOS 64 02/13/2019 AST 16 02/13/2019 ALT 15 02/13/2019 BILITOT 0.5 02/13/2019 CREA 0.70 02/13/2019 BUN 9 02/13/2019 EGFR Cannot calculate. 12/29/2017 HEMATOLOGY Lab Results Component Value Date WBC 8.3 05/02/2019 HGB 11.0 (L) 05/02/2019 HCT 33.5 (L) 05/02/2019 PLT 311 05/02/2019 I, previously, reviewed records from PCP for office visit on 11/11/18. 4 week event monitor July 2016 Normal event monitor. Manny Saldaña MD 4 week event monitor August 2015 Normal event monitor documenting normal heart rhythm duri ng symptoms. Manny Saldaña MD 4 week event monitor March 2019 shows baseline transmission was notable for sinus rhythm with heart rate in the 80s. Patient subsequently transmitted one episode corresponding to sympto ms of palpitations at rest which corresponded to underlying sinus rhythm with a 4-5 beat run of PACs. Another transmitted episode corresponded to sinus tachycardia with heart rate 137 without associated symptoms mentioned. Echocardiogram March 2019 shows left ventricle is normal in size and function. Ejection fract ion is estimated at 65-70%. Diastolic parameters are within normal limits. Structurally norm al tricuspid valve with trace insufficiency and peak velocity consistent with normal pulmona ry pressures. ASSESSMENT: 1. Palpitations - patient is a rather sharp and effective historian, clearly describing sy mptoms consistent with PSVT, apparently becoming more frequent in the recent past, without c lear correlation to various potential contributing factors. On occasion, she has not been a ble to effectively self terminate some episodes, in spite of using various maneuvers. She h as previously presented to her local emergency department on a few occasions, and believes t hat they have typically spontaneously terminated and did not require pharmacologic or electr ical cardioversion. Patient does experience discomfort during these episodes but denies ass ociated severe lightheadedness or syncope. She has had reduced severity of these episodes m ore recently, with self termination for all episodes with frequency 1-2x per month. Her recent ambulatory monitor was notable for a brief run of 5 beats of supraventricular ec topy, as well as transient sinus tachycardia which patient believes is correlating to an anx iety episode. For now we will continue with conservative measures including behavioral marco a fication, minimizing use of stimulants, and review of strategies for tachycardia termination . In the future, she may very well benefit from future referral to electrophysiology for co nsideration of ablation, but ideally we will attempt to better define the exact dysrhythmia. We once again discussed potential use of smart phone technology - use of the [employer] sujatha -s o that the patient may possibly assist in diagnosis of her dysrhythmia if ambulatory monitor ing fails to further elucidate this. She has yet to acquire this. Patient's echocardiogram was normal. In the meanwhile of encouraged her to indulge in good hydration and stress management. 2. Tobacco cessation -this was once again discussed at length with the patient today (> 5 minutes) - I have advised the patient to switch to vaping nicotine free products or disconti nuation completely. PLAN: 1. No further cardiovascular diagnostics. 2. Nicotine and caffine cessation. 3. Improved activity level with a goal of 150 min per week, hydration, and stress manageme nt. Could consider CBT 4. Magnesium supplement may help with ectopy 5. Follow-up visit in 6 months or sooner if indicated. Greater than 40 minutes were spent with this patient, > 50% of the time devoted to explaini ng their current diagnosis and treatment plan, and in coordination of care. Portions of this report were transcribed using voice recognition software. Every effort wa s made to ensure accuracy; however, inadvertent computerized sociology research assistant errors may be pre sent. Electronically signed by: Tawana Mcdonald PA-C 12/17/2019 documented in th is encounter Plan of Treatment +--------+ + + + + | Date | Type | Specialty | Care Team | Description | +--------+ + + + + | 09/07/ | Office | Cardiology | Tawana Mcdonald | | 2019 | Visit | | GLEN [address] | | | | | | [address] | | | | | | [place] [address] | | | | | | [phone] | | | | | | | | +--------+ + + + + | 09/22/ | Office | Physical Medicine | Gonzalo Merchant, | | | 2019 | Visit | and Rehabilitation | [address] | | | | | | [place] | | | | | | [address] | | | | | | | | +--------+ + + + + | 09/29/ | Virtual | Pain Medicine | Peggy Arreola | | | 2019 | Office | | [address] | | | | Visit | | [address] | | | | | | [place], | | | | | | [place] [address] | | | | | | [phone] | | | | | | | | +--------+ + + + + | 01/24/ | Office | Family Medicine | Kurt Campbell, | | | 2020 | Visit | | DO [address] | | | | | | [place] | | | | | | [address] | | | | | | | | +--------+ + + + + documented as of this encounter Results CBC no Differential (12/17/2019 2:08 PM PST) + +-------+ + + + | Component | Value | Ref Range | Performed | Pathologist | | | | | At | Signature | + +-------+ + + + | White Blood | 10.4 | 4.0 - 11.0 K/uL | [facility] | | | Cells | | | [facility] | | | | | | [facility] | | | | | [facility] - | | | | | | LABORATORY | | + +-------+ + + + | Red Blood | 4.69 | 3.70 - 5.20 | [facility] | | | Cells | | M/uL | [facility] | | | | | | [facility] | | | | | | [facility] - | | | | | | LABORATORY | | + +-------+ + + + | Hemoglobin | 14.1 | 11.5 - 16.0 | [facility] | | | | | g/dL | [facility] | | | | | | [facility] | | | | | | [facility] - | | | | | | LABORATORY | | + +-------+ + + + | Hematocrit | 41.3 | 34.0 - 47.0 % | [facility] | | | | | | [facility] | | | | | | [facility] | | | | | | [facility] - | | | | | | LABORATORY | | + +-------+ + + + | MCV | 88.1 | 83.0 - 101.0 fL | [facility] | | | | | | [facility] | | | | | | [facility] | | | | | | [facility] - | | | | | | LABORATORY | | + +-------+ + + + | MCH | 30.1 | 28.0 - 35.0 pg | [facility] | | | | | | [facility] | | | | | | [facility] | | | | | | [facility] - | | | | | | LABORATORY | | + +-------+ + + + | MCHC | 34.1 | 32.0 - 36.0 | [facility] | | | | | g/dL | [facility] | | | | | | [facility] | | | | | | [facility] - | | | | | | LABORATORY | | + +-------+ + + + | RDW-CV | 13.3 | <15.0 % | [facility] | | | | | | [facility] | | | | | | [facility] | | | | | | [facility] - | | | | | | LABORATORY | | + +-------+ + + + | RDW-SD | 42.6 | 35.1 - 46.3 fL | [facility] | | | | | | [facility] | | | | | | [facility] | | | | | | [facility] - | | | | | | LABORATORY | | + +-------+ + + + | Platelet | 406 | 140 - 440 K/uL | [facility] | | | Count | | | [facility] | | | | | | [facility] | | | | | | [facility]ENTER - | | | | | | LABORATORY | | + +-------+ + + + | MPV | 9.5 | 6.5 - 12.4 fL | [facility] | | | | | | [facility] | | | | | | [facility] | | | | | | [facility] - | | | | | | LABORATORY | | + +-------+ + + + | % nRBC | 0 | 0 - 2 per 100 | [facility] | | | | | WBCs | [facility] | | | | | | [facility] | | | | | | [facility] - | | | | | | LABORATORY | | + +-------+ + + + | Absolute | 0.00 [...] + | [facility] | [address] | [place] | [phone] | | [facility] | | [address] | | | - LABORATORY | | | | + + + + + TSH (12/17/2019 2:08 PM PST) + +-------+ + + + | Component | Value | Ref Range | Performed | Pathologist | | | | | At | Signature | + +-------+ + + + | TSH | 1.60 | 0.55 - 4.78 | [facility] | | | | | uIU/mL | [facility] | | | | [...] + | [facility] | [address] | [place] | [phone] | | [facility] | | [address] | | | - LABORATORY | | | | + + + + + documented in this encounter Visit Diagnoses + + | Diagnosis | + + | Palpitation - Primary Palpitations | + + | Chest pain, unspecified type | + + | Tachycardia Tachycardia, unspecified | + + | SVT (supraventricular tachycardia) (HCC) Other specified cardiac dysrhythmias | + + | Anemia, unspecified type | + + documented in this encounter
--- OUTSIDE RECORDS SUMMARY | ~2020-09-05 | XMS | Encounter Summary ---
Demographics + + + | Address | [address] | | | [place] [address] | + + + | Home Phone [...] | | | | | [place] [address] | | + + + + + | Concha Paulino | ECON | [address] | | | | | [place] [address] | | + + + + + Care Team Providers + +------+ + | Care Flatwork Assembler Name | Role | Phone | + +------+ + | No, Physician | PCP | Unavailable | + +------+ + Encounter Details +--------+ + + + + | Date | Type | Department | Care Team | Description | +--------+ + + + + | 12/17/ | Hospital | [facility] | Deborah Knutson, | | | 2018 | Encounter | [facility] | Need updated | | | | | [address] | address | | | | | [place] | | | | | | [address] | | | | | | [phone] | | | +--------+ + + + [...] by mouth | | 0 | | 02/04/201 | | 325 mg tablet | daily [...] | | | | | [place] [address] | | | | | | [phone] | | | | | | | | +--------+ + + + + | 09/22/ | Office | Physical Medicine | Gonzalo Merchant, | | | 2019 | Visit | and Rehabilitation | [address] | | | | | | [place] | | | | | | [address] | | | | | | | | +--------+ + + + + | 09/29/ | Virtual | Pain Medicine | Peggy Arreola | | | 2019 | Office | | [address] | | | | Visit | | [address] [address] | | | | | | [place], | | | | | | [place] [address] | | | | | | [phone] | | | | | | | | +--------+ + + + + | 01/24/ | Office | Family Medicine | Kurt Campbell, | | | 2020 | Visit | | DO [address] | | | | | | [place] | | | | | | [address] | | | | | | | [...] available. FINDINGS: AP view both hands. | [facility] | | Bones: No fracture or dislocation. [...] + | Shaun, Rad Results In - 12/17/2017 7:09 PM PST [...] + | [facility] | [address] | [place] | [phone] | | [facility] | | [address] | | | - IMAGING | | | | + + + + + documented in this encounter Visit Diagnoses Not on filedocumented in this encounter"
--- OUTSIDE RECORDS SUMMARY | ~2020-09-05 | XMS | Encounter Summary ---
Demographics + + + | Address | [address] | | | [place] [address] | + + + | Home Phone | | + + + | Preferred Language | Unknown | + + + | Marital Status | Single | + + + | Mandaen Affiliation | 1059 | + + + | Race | Unknown | + + + | Ethnic Group | Not or | + + + Author + + + | Author | [facility] | | | and [place] | + + + | Organization | [facility] | | | [...] | | | | | [place] [address] | | + + + + + | Concha Paulino | ECON | [address] | | | | | [place] [address] | | + + + + + Care Team Providers + +------+ + | Care Weight And Test Bar Clerk Name | Role | Phone | + +------+ + | Leonid Osorio MD | PCP | | + +------+ + Reason for Visit + + + | Reason | Comments | + + + | Nasal Congestion | Rm 3; x 1 day, sinus headache, generalized aches PT. IS | + + + | Cough | productive, yellow sputum | + + + Encounter Details +--------+---------+ + + + | Date | Type | Department | Care Team | Description | +--------+---------+ + + + | 02/13/ | Office | [facility] | Herbie Peterson | Cough (Primary Dx); | | 2017 | Visit | CARE [address] | Juan R Crow MD | Pharyngitis, | | | | [place] | [address] | unspecified | | | | [address] | [facility] [place] | etiology; Bronchitis | | | | [phone] | [address] | | | | | | | | +--------+---------+ + + + [...] + + + | Blood Pressure | 111/76 | 02/13/2017 6:43 PM | | | | | PDT | | + + + + + | Pulse | 128 | 02/13/2017 6:43 PM | | | | | PDT | | + + + + + | Temperature | 37.7 C (99.9 F) | 02/13/2017 6:43 PM | | | | | PDT | | + + + + + | Respiratory Rate | 12 | 02/13/2017 6:43 PM | | | | | PDT | | + + + + + | Oxygen Saturation | 98% | 02/13/2017 6:43 PM | | | | | PDT | | + + + + + | Inhaled Oxygen | - | - | | | Concentration | | | | + + + + + | Weight | 49.1 kg (108 lb 3.2 | 02/13/2017 6:43 PM | | | | oz) | PDT | | + + + + + | Height | 157.5 cm (5' 2") | 02/13/2017 6:43 PM | | | | | PDT | | + + + + + | Body Mass Index | 19.79 | 02/13/2017 6:43 PM | | | | | PDT | | + + + + + documented in this encounter Patient Instructions Patient Instructions Herbie Peterson Jr., MD - 02/13/2017 7:30 PM PDT Follow-up with your doctor or the clinic if not improving in 5 days. Take medication as directed Increase fluid intake Recheck sooner, in the clinic, with your doctor or in the ER, if your symptoms worsen or ne w problems develop 7: 30 PM PDT documented in this encounter Progress Notes Herbie Peterson Jr., MD - 02/13/2017 8:35 PM PDTDevcarter Saravia Chief Complaint: Body aches, sore throat, yellow rhinorrhea and cough productive of yellow phlegm HPI: Patient is 5-1/2 weeks . She presents with flulike symptoms. She has had so re throat, yellow-green rhinorrhea and is coughing up some yellow phlegm. She has not had a ny GI symptoms Past medical history, past surgical history, medication reviewed. Physical Exam: No acute distress, alert and oriented, non-toxic in appearance BP 111/76 mmHg | Pulse 128 | Temp(Src) 37.7 C (99.9 F) (Temporal) | Resp 12 | Ht 1.575 m (5' 2") | Wt 49.079 kg (108 lb 3.2 oz) | BMI 19.78 kg/m2 | SpO2 98% Nose: Yellow rhinorrhea with some sinus tenderness Ears: TM's not inflamed Throat: erythema, no exudate Neck: Supple, no stridor, no adenopathy Chest: No rales, no rhonchi, no wheezes, good breath sounds bilaterally, no respiratory di stress Heart: Regular rhythm, no murmur, no gallop, no rub Flu test: Negative Diagnosis: Bronchitis, pharyngitis Plan: Zithromax Follow-up with your doctor or the clinic if not improving in 5 days. Take medication as directed Increase fluid intake Recheck sooner, in the clinic, with your doctor or in the ER, if your symptoms worsen or ne w problems develop This note dictated with Charissa and was not proofread. document ed in this encounter Plan of Treatment +--------+ [...] | | | | | [place] [address] | | | | | | [phone] | | | | | | | | +--------+ + + + + | 09/22/ | Office | Physical Medicine | Gonzalo Merchant, | | | 2019 | Visit | and Rehabilitation | MD [address] | | | | | | [place] | | | | | | [id number] | | | | | | | | +--------+ + + + + | 09/29/ | Virtual | Pain Medicine | Peggy Arreola | | 2019 | Office | | [address] | | | | Visit | | [place] | | | | | | [address] [place], | | | | | | [place] [address] | | | | | | [phone] | | | | | | | | +--------+ + + + + | 01/24/ | Office | Family Medicine | Kurt Campbell, | | | 2020 | Visit | | DO [address] | | | | | | [place] | | | | | | [address] | | | | | | | | +--------+ + + + + documented as of this encounter Procedures + +--------+ + + + | Procedure Name | Priori | Date/Time | Associated Diagnosis | Comments | | | ty | | | | + +--------+ + + + | POCT INFLUENZA A/B | Routin | 02/13/2017 | Cough | Results for this | | NAAT | e | 7:31 PM | Pharyngitis, | procedure are in the | | | | PDT | unspecified etiology | results section. | + +--------+ + + + documented in this encounter Results POCT Influenza A/B NAAT (02/13/2017 7:31 PM PDT) + + + + + + | Component | Value | Ref Range | Performed | Pathologist | | | | | At | Signature | + + + + + + | Influenza A | Negative | Negative | | | | NAAT, POC | | | | | + + + + + + | Influenza B | Negative | Negative | | | | NAAT, POC | | | | | + + + + + + | Internal QC | Acceptable | Acceptable | | | + + + + + + + + | Specimen | + + | | + + documented in this encounter Visit Diagnoses + + | Diagnosis | + + | Cough - Primary | + + | Pharyngitis, unspecified etiology | + + | Bronchitis Bronchitis, not specified as acute or chronic | + + documented in this encounter
--- OUTSIDE RECORDS SUMMARY | ~2020-09-05 | XMS | Encounter Summary ---
Demographics + + + | Address | [address] | | | [place] [address] | + + + | Home Phone | | + + + | Preferred Language | Unknown | + + + | Marital Status | Single | + + + | Roman Catholic Affiliation | 1059 | + + + | Race | Unknown | + + + | Ethnic Group | Not or | + + + Author + + + | Author | [facility] | | | and [place] | + + + | Organization | [facility] | | | and [...] | | | | | [place] [address] | | + + + + + | Concha Paulino | ECON | [address] | | | | | [place] [address] | | + + + + + Care Team Providers + +------+ + | Care Information Security Engineer Name | Role | Phone | + +------+ + | Chance Easley MD | PCP | | + +------+ + Reason for Visit + + + | Reason | Comments | + + + | Skin Problem | nose. RM3 | + + + Encounter Details +--------+---------+ + + + | Date | Type | Department | Care Team | Description | +--------+---------+ + + + | 10/02/ | Office | [facility] | Raghav Pak MD | Cellulitis of nose | | 2014 | Visit | CARE [address] | [address] | (Primary Dx) | | | | [place] | [place] | | | | | [address] | [address] | | | | | [phone] | | | +--------+---------+ + + + [...] + + + | Blood Pressure | 100/50 | 10/02/2014 12:01 PM | | | | | PST | | + + + + + | Pulse | 78 | 10/02/2014 12:01 PM | | | | | PST | | + + + + + | Temperature | 37.1 C (98.7 F) | 10/02/2014 12:01 PM | | | | | PST | | + + + + + | Respiratory Rate | 18 | 10/02/2014 12:01 PM | | | | | PST | | + + + + + | Oxygen Saturation | 100% | 10/02/2014 12:01 PM | | | | | PST | | + + + + + | Inhaled Oxygen | - | - | | | Concentration | | | | + + + + + | Weight | 48.1 kg (106 lb) | 10/02/2014 12:01 PM | | | | | PST | | + + + + + | Height | 158.8 cm (5' 2.5") | 10/02/2014 12:01 PM | | | | | PST | | + + + + + | Body Mass Index | 19.08 | 10/02/2014 12:01 PM | | | | | PST | | + + + + + documented in this encounter Patient Instructions Patient Instructions Raghav Pak MD - 10/02/2014 12:30 PM PSTAPPLY OINTMENT TO PIERCING AREA TWICE DAILY TRY TO AVOID EXCESS MOVEMENT AND IRRITATION OF THE PIERCING -- DON'T PLAY WITH IT !!!Elec tronically signed by Raghav Pak MD at 10/02/2014 12:31 PM PST documented in this encounter Progress Notes Raghav Pak MD - 10/02/2014 12:24 PM PST Subjective: Patient ID: Renny Saravia is a 14 y.o. female. She had a nasal septal piercing wit h insertion of a metal horseshoe placed about one month ago. It is in a position where it i s slightly irritated to her, and she has some crusting near the sites of mucosal penetration . Not a lot of pain or swelling. HPI Patient's medications, allergies, past medical, surgical, social and family histories were reviewed and updated as appropriate. Review of Systems Negative otherwise Objective: Physical Exam Constitutional: She appears well-developed and well-nourished. No distress. HENT: Nose: Assessment: Minimally infected nasal itching Plan: Bactroban ointment is prescribed for twice daily application to the area, followup when nec essary poor progress or significant swelling or pain. documented in this enc ounter Plan of Treatment +--------+ + + + + | Date | Type | Specialty | Care Team | Description | +--------+ + + + + | 09/07/ | Office | Cardiology | Rosalia Mcdonaldcy | | | 2019 | Visit | | [address] | | | | | | [address] [place] | | | | | | [place] [address] | | | | | | [phone] | | | | | | | | +--------+ + + + + | 09/22/ | Office | Physical Medicine | Gonzalo Merchant, | | | 2019 | Visit | and Rehabilitation | [address] | | | | | | [place] | | | | | | [address] | | | | | | | | +--------+ + + + + | 09/29/ | Virtual | Pain Medicine | Peggy Arreola | | 2019 | Office | | [address] | | | | Visit | | [place] | | | | | | [place], | | | | | | [place] [address] | | | | | | [phone] | | | | | | | | +--------+ + + + + | 01/24/ | Office | Family Medicine | Kurt Campbell, | | | 2020 | Visit | | DO [address] | | | | | | [place] | | | | | | [address] | | | | | | | | +--------+ + + + + documented as of this encounter Visit Diagnoses + + | Diagnosis | + + | Cellulitis of nose - Primary Other diseases of nasal cavity and sinuses | + + documented in this encounter
--- OUTSIDE RECORDS SUMMARY | ~2020-09-05 | XMS | Encounter Summary ---
Demographics + + + | Address | [address] | | | [place] [address] | + + + | Home Phone [...] + | Author | [facility] | | | and [place] | + + + | Organization | [facility] | | | [...] | | | | | [place] [address] | | + + + + + | Concha Zeeshanletty | ECON | [address] | | | | | [place] [address] | | + + + + + Care Team Providers + +------+ + | Care Treasury Analyst Name | Role | Phone | + +------+ + | Kurt Campbell DO | PCP | | + +------+ + Reason for Referral Evaluate & Treat (Routine) +--------+ + + + + + | Status | Reason | Specialty | Diagnoses / | Referred By | Referred To | | | | | Procedures | Contact | Contact | +--------+ + + + + + | Denied | Specialty | Physical | Diagnoses | Mayur, | Gonzalo Merchant | | | Services | Medicine and | Trigger | Gonzalo Weir MD | Raul Weir MD [address] | | | Required | Rehabilitatio | point of | [address] | | | | n | thoracic | [address] | [place], | | | | | region | [place], | [place] [address] | | | | | Adolescent | [place] [address] | Phone: | | | | | idiopathic | Phone: | [phone] | | | | | scoliosis of | [phone] | Fax: | | | | | | Fax: | [phone] | | | | | thoracolumba | [phone] | | | | | | r region | | | | | | | Focal | | | | | | | dystonia | | | | | | | Procedures | | | | | | | VT INJECT | | | | | | | TRIGGER | | | | | | | POINT, 3+ | | | | | | | MUSCLES | | | | | | | 02/21- | | | | | | | EOCCO> DOS | | | | | | | 02/25/20 | | | | | | | Trigger | | | | | | | points | | | +--------+ + + + + + Reason for Visit + + + | Reason | Comments | + + + | Back Pain | thoracic | + + + Evaluate & Treat (Routine) +--------+ + + + + + | Status | Reason | Specialty | Diagnoses / | Referred By | Referred To | | | | | Procedures | Contact | Contact | +--------+ + + + + + | Closed | Specialty | Physical | Diagnoses | Adrian, | Gonzalo Merchant | | | Services | Medicine and | Chronic | Kurt High DO | Raul Weir MD [address] | | | Required | Rehabilitatio | midline | [address] | | | | n | thoracic | [address] [place] | [place], | | | | | back pain | [place] | [place] [address] | | | | | Scoliosis of | [address] | Phone: | | | | | thoracic | Phone: | [phone] | | | | | spine, | [phone] | Fax: | | | | | unspecified | Fax: | [phone] | | | | | scoliosis | [phone] | | | | | | type | | | +--------+ + + + + + Encounter Details +--------+---------+ + + + | Date | Type | Department | Care Team | Description | +--------+---------+ + + + | 01/27/ | Office | [facility] | Gonzalo Merchant, | Trigger point of | | 2020 | Visit | PHYSIATRY [address] | MD [address] | thoracic region | | | | [address] | [place] | (Primary Dx); | | | | [place] | [address] | Adolescent | | | | [address] | | idiopathic scoliosis | | | | [phone] | | of thoracolumbar | | | | | | region; Focal | | | | | | dystonia | +--------+---------+ + + + Social History [...] of this encounter Patient Instructions Patient Instructions Janee Rivera, Au Pair - 01/28/2020 11:30 AM PSTReturn to clinic for repeat trigger point injections. documented in this encounter Progress Notes Gonzalo Merchant MD - 01/28/2020 11:30 AM PSTFormatting of this note might be different fro m the original. Gonzalo Merchant MD [address] [facility] [address] [place] [address] FAX: PHYSICAL MEDICINE AND REHABILITATION H&P CHIEF COMPLAINT: Chief Complaint Patient presents with Back Pain thoracic HISTORY OF PRESENT ILLNESS: Renny Saravia is a 20 y.o. female being seen today in follow-up for complaints of t horacic back pain. Renny Saravia was last seen on 11/13/19 for trigger point in [facility]. She reports that the treatment was effective. Overall Renny Saravia reports that her symptoms are improved. Renny Saravia rates the pain as mild. Renny Saravia does describe and episode of numbness of the right hand intermittently. She does report weakness of the right hand. Renny Saravia reports significant improvement in thoracic back pain following esvin er point injections. Renny Saravia's medications, allergies, past medical, surgical, social and family h istories were reviewed and updated as appropriate. CURRENT MEDICATIONS: Current Outpatient Medications Medication Sig Dispense Refill [...] tablet by mouth Daily. 30 tablet 0 cyclobenzaprine (FLEXERIL) 10 mg tablet Take 1 tablet by mouth 3 times daily as needed for Muscle spasms. 21 tablet 0 dicyclomine (BENTYL) 10 mg capsule [...] Take 1 tablet by mouth every 6 hour s as needed for Nausea. 15 tablet 0 ondansetron (ZOFRAN ODT) 4 mg disintegrating tablet as needed. 0 raNITIdine (ZANTAC) 150 MG capsule Take 1 capsule by mouth 2 times daily. 60 capsule 1 traZODone (DESYREL) 50 mg tablet Take 50 mg by mouth as needed. 0 No current facility-administered medications for this visit. ALLERGIES: Allergies Allergen Reactions Rey Flavor Hives Effexor [Venlafaxine] Anaphylaxis Nystatin Swelling Omeprazole Shortness Of Breath Penicillins Hives and Nausea And Vomiting Sulfa Antibiotics Shortness Of Breath Aspirin Other (See Comments) fever Fish Oil Unknown Whooping cough injection/ extreme reaction Macrobid [Nitrofuran Derivatives] Nausea And Vomiting Penicillins Unknown REVIEW OF SYSTEMS: ROS GENERALLY: No fever, no night sweats, no anemia, no fatigue, no recent profound weight ch anges. EYES: No eye problems, no use of corrective lenses, no eye injury, no double vision, no bl indness. EARS, NOSE, AND THROAT: No changes in taste or smell, no hearing difficulty, no ringing in the ears, no ear drainage, no dizziness, no voice changes, no difficulty swallowing, no sig nificant snoring, no sleep apnea, no sinus problems, no major dental work. NEUROLOGICALLY:The patient has no numbness/pain of arms, no numbness/pain of legs, no awake with numbness/pain, no weakness, no muscle aching, no coordination difficulty, no change in walk, no head injury, no neck injury, no back injury, no pain in neck, no pain in back, no stroke, no fainting spells, no loss of consciousness, no tremor/shaking, no seizures, no hea daches, no migraine, no memory loss, no speech difficulty, no confusion and no numbness of f nanda. PSYCHIATRIC: No depression, no sleep disorders, no anxiety, no bipolar disorder, no psycho tic episodes. CARDIOVASCULAR: No heart attacks, no heart murmur, no heart fluttering, no chest pain, no ankle swelling. LUNG DISEASE: No shortness of breath, no cough, no tuberculosis, no bloody cough, no asth ma, no emphysema/COPD. GASTROINTESTINAL: No bowel disease, no nausea or vomiting, no rectal bleeding, no constipa tion, no stool incontinence, no liver disease, no gallbladder disease, no abdominal pain, no ulcers. KIDNEY DISEASE: No urinary frequency, no painful or difficult urination, no incontinence. ENDOCRINE: No diabetes, no thyroid disease, no osteopenia or osteoporosis, no breast drain age. SKIN: No breast lumps, no skin changes, no rashes, no itches. HEMATOLOGIC/LYMPHATIC: No enlarged lymph nodes, no easy or unusual bleeding, no personal h istory of cancer. RHEUMATOLOGIC: No joint arthritis, no rheumatoid arthritis. PHYSICAL EXAMINATION: GENERAL: The patient is well developed and well nourished. HEENT: Normocephalic and atraumatic. Normal sclerae without icterus. NECK (ANTERIOR): There is no apparent cervical lymphadenopathy or thyromegaly. PULMONARY: The patient is in no acute respiratory distress with unlabored respirations. CARDIOVASCULAR: Regular rate and rhythm. ABDOMEN: Non-distended. SKIN: Limited skin exam shows no significant rashes or lesions. NEUROLOGIC: The patient is awake, alert, and oriented. She follows simple and complex commands. Her speech is fluent. She comprehends speech well. She has no apparent deficits with short or mannequin molder memory. The cranial nerves appear grossly intact. MUSCULOSKELETAL : Palpable trigger points with reproduction of back pain over thoracic para spinal muscles. DATABASE: No new imaging is available for review. ASSESSMENT: 1. Trigger point of thoracic region 2. Adolescent idiopathic scoliosis of thoracolumbar region 3. Focal dystonia PLAN: 1. Renny Saravia presents to clinic today to review trigger point injections. Overa ll Renny Saravia had excellentresponse to trigger point injections. She denies karen e effects to injections. With plans to anticipate repeating trigger points Renny gordon should return to clinic as scheduled for repeat injections in hopes of providing contin ued relief as symptoms are returning. Renny Saravia was advised to continue with at home exercises as outlined by physica l therapy, indefinitely. 2. Renny Saravia presents to clinic today with fever and cough. Renny Wade son was advised to continue with instructions as provided by Kurt Campbell DO on 01/27/2020 for evaluation of "flu like symptoms". Renny Saravia was advised to inform and stay away from potentially spreading symptoms to others. Renny Saravia should not return to clinic until she is symptom free before repeat trigger point injections. She was advise d that if her symptoms became more severe, or if she had breathing difficulties that she manuel uld seek care at ER or urgent care. I spent 15 minutes in visit with Renny Saravia today with the majority of time spen t counselling the patient on her diagnosis, options for her care, and coordinating her care. I, Gonzalo Merchant MD personally performed the services described in this documentation, as scribed by in my presence, STEFF Wisdom and are both accurate and complete. Gonzalo Merchant MD - 01/28/2020 documented in this en counter Plan of [...] | | | | | | [place] [address] | | | | | | [phone] | | | | | | | | +--------+ + + + + | 09/22/ | Office | Physical Medicine | Gonzalo Merchant, | | | 2019 | Visit | and Rehabilitation | MD [address] | | | | | | [place] | | | | | | [address] | | | | | | | | +--------+ + + + + | 09/29/ | Virtual | Pain Medicine | Peggy Arreola | | 2019 | Office | | [address] | | | | Visit | | [place] | | | | | | [place], | | | | | | [place] [address] | | | | | | [phone] | | | | | | | | +--------+ + + + + | 01/24/ | Office | Family Medicine | Kurt Campbell, | | | 2020 | Visit | | DO [address] | | | | | | [place] | | | | | | [address] | | | | | | | | +--------+ + + + + + + +--------+ + + | Name | Type | Priori | Associated Diagnoses | Order Schedule | | | | ty | | | + + +--------+ + + | * [facility] | Outpatient | Routin | Trigger point of | Ordered: 01/28/2020 | | Physiatry - AMB | Referral | e | thoracic region | | | Referral | | | Adolescent | | | | | | idiopathic scoliosis | | | | | | of thoracolumbar | | | | | | region Focal | | | | | | dystonia | | + + +--------+ + + [...]
--- OUTSIDE RECORDS SUMMARY | ~2020-09-05 | XMS | Encounter Summary ---
Demographics + + + | Address | [address] | | | [place] [address] | + + + | Home Phone [...] | | | | | [place] [address] | | + + + + + | Concha Paulino | ECON | [address] | | | | | [place] [address] | | + + + + + Care Team Providers + +------+ + | Care Print Graphic Designer Name | Role | Phone | + +------+ + | Leonid Osorio MD | PCP | | + +------+ + Encounter Details +--------+ + + + + | Date | Type | Department | Care Team | Description | +--------+ + + + + | 07/04/ | Documentati | [facility] | Anabella Swift, | | | 2015 | on | for Congenital Heart | Technologist | | | | | Disease [address] | | | | [address] | | | | | | [place] | | | | | | [address] | | | | | | [phone] | | | +--------+ + + + [...] documented as of this encounter Progress Notes Anabella Swift Technologist - 08/07/2016 1:44 PM PDTSpectocor event monitor end of study report docum ented in this encounter Procedure Notes Manny Saldaña MD - 08/07/2016 1:45 PM PDTAssociated Order(s): EVENT MONITOR 4 WEEKProcedure(s): EVENT MONITOR 4 WEEKPre-Procedure Diagnose(s): Palpitation08/13/2016 Leonid Osorio MD Renny Saravia ( 2000) , underwent ambulatory event monitoring beginning on . Findings are detailed below. 1. The patient wore a Spectocor monitor. 2. Number of recorded symptomatic events: 1. 3. Symptoms during recordings: not specified. 4. Activities during recordings: not specified. 5. Heart rate range: HR min: 53. HR mean: 92. HR max: 158. 6. Rhythm data: sinus rhythm and mild sinus tachycardia during unspecified symptom. Recor ded ectopy includes no significant ectopy. 7. Duration of monitorin days. IMPRESSION: Normal event monitor RECOMMENDATIONS: 1. I will forward a copy of this report to Dr. Quinones for his review. 2. Reassurance will be provided. 3. Follow-up as needed. Manny Saldaña MD [facility] Congenital Heart Disease Pediatric Cardiology documente d in this encounter Plan of Treatment +--------+ [...] [place] | | | | | | [place] [address] | | | | | | [phone] | | | | | | | | +--------+ + + + + | 09/22/ | Office | Physical Medicine | Gonzalo Merchant, | | | 2019 | Visit | and Rehabilitation | [address] | | | | | | [place] | | | | | | [address] | | | | | | | | +--------+ + + + + | 09/29/ | Virtual | Pain Medicine | Peggy Arreola | | | 2019 | Office | | [address] | | | | Visit | | [place] | | | | | | [place], | | | | | | [place] [address] | | | | | | [phone] | | | | | | | | +--------+ + + + + | 01/24/ | Office | Family Medicine | Kurt Campbell, | | | 2020 | Visit | | DO [address] | | | | | | [place] | | | | | | [address] | | | | | | | | +--------+ + + + + documented as of this encounter Procedures + +--------+ + + + | Procedure Name | Priori | Date/Time | Associated Diagnosis | Comments | | | ty | | | | + +--------+ + + + | EVENT MONITOR 4 WEEK | Routin | 08/13/2016 | Palpitation | Results for this | | | e | 8:27 AM | | procedure are in the | | | | PDT | | results section. | + +--------+ + + + documented in this encounter Results Event monitor - 4 week (08/13/2016 8:27 AM PDT) + + + | Narrative | Performed At | + + + | Manny | | | Reg Saldaña MD 08/13/2016 8: Leonid Soto | | | MD Jo Renny Saravia ( 2000) , underwent ambulatory | | | event monitoring beginning on 07/04/16. Findings are detailed below. | | | 1. The patient wore a Spectocor monitor.2. Number of recorded | | | symptomatic events: 1.3. Symptoms during recordings: not specified. | | | 4. Activities during recordings: not specified.5. Heart rate | | | range: HR min: 53. HR mean: 92. HR max: 158.6. Rhythm data: | | | sinus rhythm and mild sinus tachycardia during unspecified symptom. | | | Recorded ectopy includes no significant ectopy.7. Duration of | | | monitorin days. IMPRESSION: Normal event monitor | | | RECOMMENDATIONS: 1. I will forward a copy of this report to | | | Joni for his review.2. Reassurance will be provided.3. Follow-up | | | as needed. Manny Saldaña, [facility] | | | Congenital Heart DiseasePediatric Cardiology | | |6. Rhythm data: sinus rhythm and mild sinus tachycardia during | | |unspecified symptom. Recorded ectopy includes no significant | | |ectopy. | | |7. Duration of monitorin days. | | | | | |IMPRESSION: | | |Normal event monitor | | | | | |RECOMMENDATIONS: | | |1. I will forward a copy of this report to Dr. Quinones for his | | |review. | | |2. Reassurance will be provided. | | |3. Follow-up as needed. | | | | | | | | | | | |Manny Saldaña MD | | |[facility] | | |Pediatric Cardiology | | | | | + + + documented in this encounter Visit Diagnoses + + | Diagnosis | + + | Palpitation Palpitations | + + documented in this encounter"
--- OUTSIDE RECORDS SUMMARY | ~2020-09-05 | XMS | Encounter Summary ---
Demographics + + + | Address | [address] [facility] [address] [facility] | | | [place] [address] | + + + | Home Phone | | + + + | Preferred Language | Unknown | + + + | Marital Status | Single | + + + | Restorationist Affiliation | [phone] | + + + [...] | | | | | [place] [address] | | + + + + + | Concha Zeeshanletty | ECON | [address] | | | | | [place] [address] | | + + + + + Care Team Providers + +------+ + | Care Banquet Supervisor Name | Role | Phone | [...] | SVT | Haresh | [address] | | | | | (supraventri | MD William | [place], | | | | | cular | [address] | [place] | | | | | tachycardia) | [place] | [address] | | | | | (HCC) | [place], [place] | Phone: | | | | | Procedures | [address] | [phone] | | | | | ECHO | Phone: | Fax: | | | | | Complete [place] | [phone] | [phone] | | | | | ECHO HEART | Fax: | | | | | | [place] | [phone] | | | | | | MPLETE, W/O | | | | | | | DOPPLER | | | +--------+--------+ + + + + Reason for Visit + + + | Reason | Comments | + + + | New Patient | | + + + | Tachycardia | | + + + Evaluate & Treat (Routine) +--------+--------+ + + + + | Status | Reason | Specialty | Diagnoses / | Referred By | Referred To | | | | | Procedures | Contact | Contact | +--------+--------+ + + + + | Closed | | Cardiology | Diagnoses | Jo | Pmromán Hassan | | | | | Tachycardia | MD Leonid | Cardiology | | | | | Procedures | [address] | [address] | | | | | SENIOR INFORMATION SYSTEMS ARCHITECT | [place] | [place], | | | | | | [place] | [place] | | | | | | [address] | [address] | | | | | | Phone: | Phone: | | | | | | [phone] | [phone] | | | | | | Fax: | Fax: | | | | | | [phone] | [phone] | +--------+--------+ + + + + Encounter Details +--------+---------+ + + + | Date | Type | Department | Care Team | Description | +--------+---------+ + + + | 03/12/ | Office | [facility] | Haresh Coronel | Palpitation (Primary | | 2019 | Visit | CARDIOLOGY [address] | MD William [address] | Dx); Chest pain, | | | | [address] [place], | [address] [place] | unspecified type; | | | | [place] [address] | [place] [address] | Tachycardia; SVT | | | | [phone] | [phone] | (supraventricular | | | | | | tachycardia) (HCC) | +--------+---------+ + + + Social History [...] + + + | Blood Pressure | 102/58 | 03/12/2019 11:11 AM | | | | | PDT | | + + + + + | Pulse | 70 | 03/12/2019 11:11 AM | | | | | PDT | | + + + + + | Temperature | - | - | | + + + + + | Respiratory Rate | 14 | 03/12/2019 11:11 AM | | | | | PDT | | + + + + + | Oxygen Saturation | - | - | | + + + + + | Inhaled Oxygen | - | - | | | Concentration | | | | + + + + + | Weight | 47.6 kg (105 lb) | 03/12/2019 11:11 AM | | | | | PDT | | + + + + + | Height | 160 cm (5' 3") | 03/12/2019 11:11 AM | | | | | PDT | | + + + + + | Body Mass Index | 18.6 | 03/12/2019 11:11 AM | | | [...] of this encounter Patient Instructions Patient Instructions Martine Killian RN - 03/12/2019 11:30 AM PDT Echo: Date: Check-In Time: Where to Check In: [facility]/Event Monitor: 4 weeks Date: Check-In Time: Where to Check In: Follow up appointment: 1-2 months Provider: Nael Coronel MD Date: Check-In Time: documented in this encounter Progress Notes Haresh Coronel MD - 03/12/2019 11:30 AM PDTFormatting of this note might be differe nt from the original. PATIENT NAME: Renny Saravia : 2000: AGE: 19 y.o. REFERRED BY: Leonid Osorio PRIMARY CARE: Kurt Campbell DO CARDIOLOGY OFFICE VISIT Date of Service: 03/12/19 HISTORY OF PRESENT ILLNESS: Renny Saravia is a 19 y.o. female with a history of palpitations and tachycardia. She is being seen today for further consultation. She presents with her mother Concha. She is referred by Leonid Osorio for further evaluation given long-standing history of episod ic palpitations and tachycardia. Patient states that she believes her symptoms date back to age 11 and describes very clearly episodic sensation of heart racing with sudden onset and sudden termination without clear association with various factors. She believes that they h ave increased in frequency. She also believes that when she had presented to her local [facility] department, workup was not thyroid enough. She definitely experiences some discomfort during times of heart racing, but denies any associated severe lightheadedness or any histo ry of syncope. She is otherwise moderately active and denies any exertional symptoms or iwona st discomfort. She does describe ongoing history of anxiety/depression [...] mortem workup apparently was carried out at [facility]; no records are available for review. Patient [...] aged 42) DENTAL SURGERY UPPER GASTROINTESTINAL ENDOSCOPY Family History Problem Relation Age of Onset High blood pressure Mother Asthma Mother Emphysema Mother Bipolar disorder Mother COPD Mother Depression Mother High cholesterol Mother Kidney disease Mother Mental illness Mother Colon cancer Father 42 Other (see comment) Father angina Depression Father depression Asthma Father Mental illness Father Cancer Father colon Alcohol abuse Maternal Grandfather Other (see comment) [...] Maternal Grandmother Stroke Maternal Grandmother Cardiomyopathy Other m-ggm Other (see comment) Maternal Aunt Cancer Early Sister Arthritis Paternal Grandmother Diabetes Paternal Grandmother Cancer Paternal Grandmother breast COPD Paternal Grandfather Cancer Paternal Grandfather Collagen [...] Pack years: 3.00 Last attempt to quit: 2016 Years since quittin.2 Smokeless tobacco: Current User Tobacco comment: vaping [...] or Shortness of Breath. 60 vial 0 diphenhydrAMINE (BENADRYL) 25 mg tablet Take [...] 6 hours as needed fo r Pain. MISC NATURAL PRODUCTS PO Take by mouth. Parris's Mints. Natural CBD 5-10 mg as needed fo r headaches sertraline (ZOLOFT) 50 mg tablet Take 1 tablet by mouth Daily. 30 tablet 2 No current facility-administered medications for this visit. ALLERGIES Allergies Allergen Reactions Rey Flavor Hives Effexor [Venlafaxine] Anaphylaxis Nystatin Swelling Omeprazole Shortness Of Breath Penicillins Hives and Nausea And Vomiting Sulfa Antibiotics Shortness Of Breath Aspirin Other (See Comments) fever Fish Oil Whooping cough injection/ extreme reaction Macrobid [Nitrofuran Derivatives] Nausea And Vomiting Penicillins ROS I have reviewed the Review of Systems form dated today and scanned into the media tab. OBJECTIVE: PHYSICAL EXAM BP 102/58 | Pulse 70 | Resp 14 | Ht 1.6 m (5' 3") | Wt 47.6 kg (105 lb) | BMI 18.60 kg /m Physical Exam Constitutional: She is oriented to person, place, and time. She appears well-developed and well-nourished. HENT: Head: Normocephalic. Eyes: No scleral icterus. Neck: Normal carotid pulses and no JVD present. Carotid bruit is not present. Cardiovascular: Normal rate, regular rhythm, S1 normal, S2 normal, normal heart sounds, int act distal pulses and normal pulses. PMI is not displaced. Exam reveals no gallop and no mid systolic click. No murmur heard. Pulses: Carotid pulses are 2+ on the right side, and 2+ on the left side. Radial pulses are 2+ on the right side, and 2+ on the left side. Dorsalis pedis pulses are 2+ on the right side, and 2+ on the left side. Pulmonary/Chest: Effort normal and breath sounds normal. No accessory muscle usage. No resp iratory distress. She has no wheezes. She has no rhonchi. She has no rales. Abdominal: Soft. Normal aorta and bowel sounds are normal. She exhibits no abdominal bruit. There is no hepatosplenomegaly. There is no tenderness. Musculoskeletal: She exhibits no edema. Neurological: She is alert and oriented to person, place, and time. Gait normal. Skin: Skin is warm and dry. No cyanosis. Nails show no clubbing. Psychiatric: She has a normal mood and affect. Her mood appears not anxious. She does not e xhibit a depressed mood. Vitals reviewed. ECG: Reviewed by me today notable for normal sinus rhythm, heart rate [...] HEMATOLOGY Lab Results Component Value Date WBC 9.2 02/13/2019 HGB 13.6 02/13/2019 HCT 40.4 02/13/2019 PLT 359 02/13/2019 I reviewed records from PCP for office visit on 11/11/18. Cardiovascular diagnostic testing reviewed by me with the patient today: 4 week event monitor July 2016 Normal event monitor. Manny Saldaña MD 4 week event monitor August 2015 Normal event monitor documenting normal heart rhythm duri ng symptoms. Manny Saldaña MD ASSESSMENT: 1. Palpitations -patient is a rather sharp and effective historian, clearly describing sym ptoms consistent with PSVT, apparently becoming more frequent in the recent past, without cl ear correlation to various potential contributing factors. She has not been able to effecti vely self terminates in spite of using various maneuvers. She has presented to her local em ergency department on a few occasions, and believes that they have typically spontaneously t erminated and did not require pharmacologic or electrical cardioversion. Patient does exper ience discomfort during these episodes but denies associated severe lightheadedness or synco pe. She may very well benefit from future referral to electrophysiology for consideration o f ablation, but ideally we will attempt to better define the exact dysrhythmia. I will have her undergo repeat 4-week event monitor. We also discussed potential use of smart phone te chnology - use of the [employer] sujatha -so that the patient may possibly assist in diagnosis of he r dysrhythmia if ambulatory monitoring fails to further elucidate this. Also given possible history of sudden in her sibling at age 9, I will have her underg o an echocardiogram to rule out significant structural heart disease. Patient has no histor y of syncope/presyncope. In the meanwhile of encouraged her to indulge in good hydration and stress management. PLAN: 1. 4-week event monitor. 2. Echocardiogram. 3. Improved activity level, hydration, and stress management. 4. No empiric medical therapy at this point. 5. Follow-up visit in a few weeks. I spent 60 minutes face to face with the patient, with over 50% spent in counseling and/or coordination of care regarding patient's history of palpitations and suggestions for further workup and management. Portions of this report were transcribed using voice recognition software. Every effort wa s made to ensure accuracy; however, inadvertent computerized manager concrete errors may be pre sent. Electronically signed by: Keri Coronel MD PhD FACC 03/12/2019 documented in t his encounter Plan of [...] | | | | | [place] [address] | | | | | | [phone] | | | | | | | | +--------+ + + + + | 09/22/ | Office | Physical Medicine | Gonzalo Merchant, | | | 2019 | Visit | and Rehabilitation | MD Dane Johnson | | | | | | [place] | | | | | | [id number] | | | | | | | | +--------+ + + + + | 09/29/ | Virtual | Pain Medicine | Peggy Arreola | | | 2019 | Office | | [address] | | | | Visit | | [place] | | | | | | [place], | | | | | | [place] [address] | | | | | | [phone] | | | | | | | | +--------+ + + + + | 01/24/ | Office | Family Medicine | Kurt Campbell, | | | 2020 | Visit | | DO [address] | | | | | | [place] | | | | | | [address] | | | | | | | | +--------+ + + + + documented as of this encounter Procedures + +--------+ + + + | Procedure Name | Priori | Date/Time | Associated Diagnosis | Comments | | | ty | | | | + +--------+ + + + | ECG 12 LEAD | Routin | 03/12/2019 | Palpitation Chest | Results for this | | | e | 11:15 AM | pain, unspecified | procedure are in the | | | | PDT | type Tachycardia | results section. | + +--------+ + [...] | | | | | | n [place] | | | | | + +--------+ [...] Number ASHLY Patient Number | | | [id number] Date of Study 04/14/2019 Visit | | | Number [id number] | | | Referring Physician WILLIAM CORONEL MD Number Date of | | | 2000 [employer] [address]ERMIN | | | Age 19 year(s) Interpreting | | | WILLIAM CORONEL MD | | | Automotive Porter Gender Female Nurse | | | Stress Pbx Inspector | | | Procedure Type of Study [...] Diastolic: 0.58 cm EF | | | Sfcpbywsr62% EF Calculated: 70% Miscellaneous Aorta Aortic Root: [...] Diastolic: 0.58 cm | | | EF Pzzmdmebl43% | | | EF Calculated: 70% | [...] Room Number ASHLY | | Patient Number [id number] Date of Study 04/14/2019 Visit Number | | [id number] Referring Physician WILLIAM CORONEL MD | | Number Date of 2000 Tea Bl[employer] NORY FERMIN Age | | 19 year(s) Interpreting WILLIAM CORONEL MD | | Automotive Porter Gender Female Nurse | | Stress TechnicianProcedureType [...] | cm PW Diastolic: 0.58 cm EF Xqfybxrtx74% EF Calculated: 70% Miscellaneous Aorta Aortic | [...] PW Diastolic: 0.58 cm | | EF Ztjipaxid72% | | EF Calculated: 70% | | | | Miscellaneous | | | | Aorta | | | | Aortic Root: 2.66 cm | | Ascending Aorta: 2.55 cm | + + + +---------+ + + | Performing | Address | City[facility]State[facility] | Phone Number | | Organization | | | | + +---------+ + + | [facility] | | | | + +---------+ + + Event monitor - 4 week (04/02/2019 4:20 PM PDT) + + + | Narrative | Performed At | + + + | Haresh William Coronel MD 04/02/2019 16:23 PATIENT | [facility] | | NAME: Renny Saravia : 2000: AGE: 19 | | | y.o. PRIMARY CARE: Kurt Sullivan | | | DO ALTON Campbell SUPERVISOR PHOSPHORIC ACID: Keri Coronel MD 2-WEEK | | | [employer] EVENT MONITOR REPORT DATE: 03/13/2019 | | | FINDINGS: Baseline transmission was notable for sinus | | | rhythm with heart rate in the 80s. Patient subsequently | | | transmitted one episode corresponding to symptoms of palpitations at | | | rest which corresponded to underlying sinus rhythm with a 4-5 beat | | | run of PACs. Another transmitted episode corresponded to sinus | | | tachycardia with heart rate 137 without associated symptoms | | | mentioned. Signed by: Keri Coronel MD PhD [facility] | | | 04/02/2019, 16:21 | | + + + + +---------+ + + | Performing | Address | City/State/Zipcode | Phone Number | | Organization | | | | + +---------+ + + | [facility] | | | | + +---------+ + + ECG 12 lead (03/12/2019 11:15 AM PDT) + + + + + + | Component | Value | Ref Range | Performed | Pathologist | | | | | At | Signature | + + + + + + | VENTRICULAR | 70 | BPM | [facility] | | | RATE EKG | | | | | + + + + + + | ATRIAL RATE | 70 | BPM | [facility] | | + + + + + + | P-R | 148 | ms | [facility] | | | INTERVAL | | | | | + + + + + + | QRS | 84 | ms | [facility] | | | DURATION | | | | | + + + + + + | Q-T | 384 | ms | [facility] | | | INTERVAL | | | | | + + + + + + | Q-T | 414 | ms | [facility] | | | INTERVAL | | | | | | (CORRECTED) | | | | | + + + + + + | P WAVE AXIS | 6 | degrees | [facility] | | + + + + + + | QRS AXIS | 58 | degrees | [facility] | | + + + + + + | T AXIS | 54 | degrees | [facility] | | + + + + + + | INTERPRETAT | Normal sinus rhythmLow | | [facility] | | | ION TEXT | voltage QRSBorderline | | | | | | ECGWhen compared with | | | | | | ECG of 14-FEB-2018 | | | | | | 19:26,Vent. rate has | | | | | | decreased BY 80 | | | | | | BPMNonspecific T wave | | | | | | abnormality no longer | | | | | | evident in Lateral | | | | | | leadsConfirmed by FARZANA | | | | | | WILLIAM MARCUS ([id number]) on | | | | | | 03/13/2019 2:02:37 PM | | | | + + + + + + + + | Specimen | + + | | + + + + + | Narrative | Performed At | + + + | | | + + + + +---------+ + + | Performing | Address | City/State/Zipcode | Phone Number | | Organization | | | | + +---------+ + + | [facility] | | | | + +---------+ + [...]
--- OUTSIDE RECORDS SUMMARY | ~2020-09-05 | XMS | Encounter Summary ---
Demographics + + + | Address | [address] | | | [place] [address] | + + + | Home Phone [...] Author + + + | Author | [facility] | | | and [place] | + + + | Organization | [facility] | | | [...] | | | | | [place] [address] | | + + + + + | Concha Paulino | ECON | [address] | | | | | [place] [address] | | + + + + + Care Team Providers + +------+ + | Care Coastal/Harbor Defense Officer Name | Role | Phone | + +------+ + | Leonid Osorio MD | PCP | | + +------+ + Reason for Visit +--------+ + | Reason | Comments | +--------+ + | Asthma | | +--------+ + Encounter Details +--------+ + + + + | Date | Type | Department | Care Team | Description | +--------+ + + + + | 07/02/ | Clinical | [facility] | Serjio Clark | Asthma, unspecified | | 2018 | Support | CARE [address] | MD Leela [address] | asthma severity, | | | | [place] | [place] | unspecified whether | | | | [address] | [address] | complicated, | | | | [phone] | | unspecified whether | | | | | | persistent (Primary | | | | | | Dx) | +--------+ + + + + Social [...] documented as of this encounter Progress Notes Christine Yeh RN - 07/02/2018 5:15 PM PDTPatient to be seen in per Dr. Knutson. Christine Yeh documented in this en counter Plan of [...] | | | | | [place] [address] | | | | | | [phone] | | | | | | | | +--------+ + + + + | 09/22/ | Office | Physical Medicine | Gonzalo Merchant, | | | 2019 | Visit | and Rehabilitation | [address] | | | | | | [place] | | | | | | [address] | | | | | | | | +--------+ + + + + | 09/29/ | Virtual | Pain Medicine | Peggy Arreola | | | 2019 | Office | | [address] | | | | Visit | | [place] | | | | | | [place] | | | | | | [place] [address] | | | | | | [phone] | | | | | | | | +--------+ + + + + | 01/24/ | Office | Family Medicine | Kurt Campbell, | | | 2020 | Visit | | [address] | | | | | | [place] | | | | | | [address] | | | | | | | | +--------+ + + + + documented as of this encounter Visit Diagnoses + + | Diagnosis | + + | Asthma, unspecified asthma severity, unspecified whether complicated, unspecified | | whether persistent - Primary | + + documented in this encounter"
--- OUTSIDE RECORDS SUMMARY | ~2020-09-05 | XMS | Encounter Summary ---
Demographics + + + | Address | [address] | | | [place] [address] | + + + | Home Phone [...] Author + + + | Author | Located Within [facility] | | | and [place] | + + + | Organization | Located Within [facility] | | [...] | | | | | [place] [address] | | + + + + + | Concha Paulino | ECON | [address] | | | | | [place] [address] | | + + + + + Care Team Providers + +------+ + | Care Follow Up Clerk Name | Role | Phone | + +------+ + | Leonid Osorio MD | PCP | | + +------+ + Reason for Visit + + + | Reason | Comments | + + + | Knee Pain | Room 6 1 week of left knee pain. States is swollen. No known | | | injury. | + + + Encounter Details +--------+---------+ + + + | Date | Type | Department | Care Team | Description | +--------+---------+ + + + | 11/19/ | Office | [facility] | [facility] | Arthralgia of left | | 2018 | Visit | CARE [address] | Michael Soto MD | knee (Primary Dx) | | | | [place] | [address] | | | | | [address] | [place] | | | | | [phone] | [address] | | | | | [...] + + + | Blood Pressure | 116/83 | 11/19/2018 11:28 AM | | | | | PST | | + + + + + | Pulse | 104 | 11/19/2018 11:28 AM | | | | | PST | | + + + + + | Temperature | 37.5 C (99.5 F) | 11/19/2018 11:28 AM | | | | | PST | | + + + + + | Respiratory Rate | 16 | 11/19/2018 11:28 AM | | | | | PST | | + + + + + | Oxygen Saturation | 95% | 11/19/2018 11:28 AM | | | | | PST | | + + + + + | Inhaled Oxygen | - | - | | | Concentration | | | | + + + + + | Weight | 48.4 kg (106 lb 11.2 | 11/19/2018 11:28 AM | | | | oz) | PST | | + + + + + | Height | 157.5 cm (5' 2") | 11/19/2018 11:28 AM | | | | | PST | | + + + + + | Body Mass Index | 19.52 | 11/19/2018 11:28 AM | | | | | PST | [...] of this encounter Patient Instructions Patient Instructions Michael Aguayo MD - 11/19/2018 11:15 AM PST Arthralgia Arthralgia is the term for pain [...] by your healthcare provider Date Last Reviewed: 01/23/201719999817-3829 [employer]. [address] [place] [address]. All rig ts reserved. This information is not intended as a substitute for professional medical care. Always follow your healthcare professional's instructions. I WOULD TRY ZOSTRIX (CHILE PEPPER CREAM), OR ARNICA ( HERBAL) OR TIGER BALM (CHINES E BUT READ THE INGREDIENTS TO MAKE SURE NO ASPIRIN COMPOUNDS), documented in this encounter Progress Notes Delfina Murphy, Customer Support Engineer - 11/19/2018 11:15 AM PSTVenipuncture to patients rig ht AC with 21 gauge butterfly needle. One purple, one green and one gold top were drawn. Pat ient tolerated well. Verified name and date of of patient before provider orders were carried out. Michael Lazar MD - 11/19/2018 11:15 AM PSTFormatting of this note might be differ ent from the original. Subjective: Chief Complaint: Knee Pain (Room 6 1 week of left knee pain. States is swollen. No known i jose d.) Renny is a 18 y.o. female who comes in complaining of left knee pain 6 days. HPI this young woman presents with left knee pain and stiffness and swelling 6 days. She denies any recent injury. She reports she has had cycles of arthralgia in the winter for s everal years now. Last year is worse on the right knee this year it's worse on the left. S he has slight symptoms on the right and in the hands. There is no fever chills sweats unexp lained weight loss. There is no redness or heat. There is prominent a.m. stiffness of the left knee but this lasts for about 15 minutes only before works itself. It is however painf ul to bear weight. She reports she has "psoriasis" with patches of red bumpy skin show up a nd leave without treatment. There is a positive family history of rheumatoid arthritis on h er mother's side with a cousin great and great-grandmother for sure with this disease Patient's medications, allergies, past medical, surgical, social and family histories were reviewed and updated as appropriate. ROS She has not had a facial rash. She had some pain in the right rib cage yesterday that came on suddenly but also left within hours. It did cause some splinting of the breath but she has no cough or sputum production. 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 No | BMI 19.52 kg/m Physical Exam Nontoxic adolescent woman. Vital signs as above. Skin no malar rash. There is no classic psoriatic plaque. There is a few nonspecific red areas on the shoulders and upper arms Lungs clear without rub Heart RRR no MRG Orthopedic the left knee is slightly stiffened is painful to full range of motion but is no t red swollen or hot. She has no effusion on examination. The ligaments are all stable alt benja there is tenderness over the lateral joint line. Tim's is negative Right knee is normal. Hands and wrists elbows shoulders are normal. Pulses are normal at the radius and feet. Fingers and toes are cool to touch without cyano sis or clubbing or edema Recent Results (from the past 24 hour(s)) Comprehensive Metabolic Panel Result Value Ref Range Na 138 136 - 145 mmol/L K 3.8 3.5 - 5.1 mmol/L Cl 104 98 - 107 mmol/L CO2 26 21 - 32 mmol/L Anion Gap 8 2 - 16 mmol/L Glucose 96 74 - 106 mg/dL BUN 11 7 - 18 mg/dL Creatinine 0.73 0.55 - 1.02 mg/dL eGFR if not >60 >=60 mL/min/1.73m2 Ca 9.2 8.5 - 10.1 mg/dL Albumin 4.2 3.4 - 5.0 g/dL Bilirubin Total 0.4 0.2 - 1.0 mg/dL Total Protein 8.4 (H) 6.4 - 8.2 g/dL AST 17 15 - 37 U/L ALT 23 14 - 59 U/L Alkaline Phosphatase 85 74 - 255 U/L Globulin 4.2 (H) 2.1 - 3.8 g/dL Albumin/Globulin Ratio 1.0 0.8 - 2.0 BUN/Creatinine Ratio 15.1 C-Reactive Protein Result Value Ref Range C-Reactive Protein <2.0 0.0 - 9.0 mg/L CBC with Differential Result Value Ref Range WBC 8.6 4.0 - 11.0 K/uL RBC 4.92 3.70 - 5.20 M/uL Hgb 14.8 11.5 - 16.0 g/dL Hct 43.9 34.0 - 47.0 % MCV 89.2 83.0 - 101.0 fL MCH 30.1 28.0 - 35.0 pg MCHC 33.7 32.0 - 36.0 g/dL RDW-CV 11.6 <15.0 % RDW-SD 38.3 35.1 - 46.3 fL Platelet Count 410 140 - 440 K/uL MPV 9.3 6.5 - 12.4 fL % Neutrophils 56.3 45.0 - 82.0 % % Lymphocytes 29.5 20.0 - 45.0 % % Monocytes 6.6 4.0 - 12.0 % % Eosinophils 7.0 (H) 0.0 - 5.0 % % Basophils 0.5 0.0 - 1.0 % % Immature granulocytes 0.1 0.0 - 0.4 % Absolute Neutrophils 4.85 1.80 - 8.50 K/uL Absolute Lymphocytes 2.54 0.60 - 3.20 K/uL Absolute Monocytes 0.57 0.00 - 1.00 K/uL Absolute Eosinophils 0.60 (H) 0.00 - 0.40 K/uL Absolute Basophils 0.04 0.00 - 0.10 K/uL Absolute Imm. Granulocytes 0.01 0.00 - 0.03 K/uL Assessment and Plans: 1. Arthralgia of left knee Differential is extensive. No relevant previous data available for review. I see minimal change on the knee to suggest benefit from an x-ray at this moment.- We did send labs today to screen for autoimmune disease. We did talk a little bit about pa rvo infection that can cause some nasty arthralgias. She has had no recent cold. The last one was at least 2 months ago. Topical relief measures are reviewed and a VS printed. Jenifer ent agrees to plan and will need to see her PCP for further workup if need be Comprehensive Metabolic Panel - C-Reactive Protein - CBC with Differential - Sedimentation Rate - Rheumatoid Factor, Quant This note was dictated using [employer] voice recognition software. Occasional wrong- word or s ound-alike substitutions may have occurred due to the inherent limitations of voice recognit ion software. Please read the chart carefully and recognize, using context, where these subs titutions have occurred. documented in this encounter Plan of Treatment [...] [place] | | | | | | [place] [address] | | | | | | [phone] | | | | | | | | +--------+ + + + + | 09/22/ | Office | Physical Medicine | Gonzalo Merchant | | | 2019 | Visit | and Rehabilitation | [address] | | | | | | [place], [place] | | | | | | [address] | | | | | | | | +--------+ + + + + | 09/29/ | Virtual | Pain Medicine | Peggy Arreola | | 2019 | Office | | [address] | | | | Visit | | [place] | | | | | | [place] | | | | | | [place] [address] | | | | | | [phone] | | | | | | | | +--------+ + + + + | 01/24/ | Office | Family Medicine | Kurt Campbell, | | | 2020 | Visit | | DO [address] | | | | | | [place] | | | | | | [address] | | | | | | | | +--------+ + + + + documented as of this encounter Procedures + +--------+ + + + | Procedure Name | Priori | Date/Time | Associated Diagnosis | Comments | | | ty | | | | + +--------+ + + + | SEDIMENTATION RATE | STAT | 11/19/2018 | Arthralgia of left | Results for this | | | | 12:24 PM | knee | procedure are in the | | | | PST | | results section. | + +--------+ + + + | CBC WITH | STAT | 11/19/2018 | Arthralgia of left | Results for this | | DIFFERENTIAL | | 12:24 PM | knee | procedure are in the | | | | PST | | results section. | + +--------+ + + + | RHEUMATOID FACTOR, | STAT | 11/19/2018 | Arthralgia of left | Results for this | | QUANT | | 12:24 PM | knee | procedure are in the | | | | PST | | results section. | + +--------+ + + + | C-REACTIVE PROTEIN | STAT | 11/19/2018 | Arthralgia of left | Results for this | | | | 12:24 PM | knee | procedure are in the | | | | PST | | results section. | + +--------+ + + + | COMPREHENSIVE | STAT | 11/19/2018 | Arthralgia of left | Results for this | | METABOLIC PANEL | | 12:24 PM | knee | procedure are in the | | | | PST | | results section. | + +--------+ + + + documented in this encounter Results Rheumatoid Factor, Quant (11/19/2018 12:24 PM PST) + +-------+ + + + [...] + + | Performed at: 01 - [facility] [address], | REFERENCE LAB | | [place], [place] [id number] Welder Fitter Helper: Eros Godinez MD, Phone: | YIMI - BESS | | [phone] | | + + + + + + + + | Performing | Address | City/State/Zipcode | Phone Number | | Organization | | | | + + + + + | REFERENCE LAB | [address] | [place], [place] | [phone] | | [facility] | [facility] | [address] | | + + + + + Sedimentation Rate (11/19/2018 12:24 PM PST) + +-------+ + + + | Component | Value | Ref Range | Performed | Pathologist | | | | | At | Signature | + +-------+ + + + | Erythrocyte | 8 | <20 mm/hr | [facility] | | | | | | [facility] | | | [facility] | | | [facility] | | | on Rate | | | [facility] | | | | | | LAB[facility]ATORY | | + +-------+ + + + + + | Specimen | + + | Blood | + + + + + + + | Performing | Address | City/State/Zipcode | Phone Number | | Organization | | | | + + + + + | [facility] | [address] | [place] | [phone] | | [facility] | | [address] | | | [facility] | | | | + + + + + CBC with Differential (11/19/2018 12:24 PM PST) + + + + + + | Component | Value | Ref Range | Performed | Pathologist | | | | | At | Signature | + + + + + + | White Blood | 8.6 | 4.0 - 11.0 K/uL | [facility] | | | Cells | | | [facility] | | | | | | [facility] | | | | | | [facility] | | | | | | [facility] | | + + + + + + | Red Blood | 4.92 | 3.70 - 5.20 | [facility] | | | Cells | | M/uL | [facility] | | | | | | [facility] | | | | | | [facility] | | | | | | [facility] | | + + + + + + | Hemoglobin | 14.8 | 11.5 - 16.0 | [facility] | | | | | g/dL | [facility] | | | | | | [facility] | | | | | | [facility] | | | | | | [facility] | | + + + + + + | Hematocrit | 43.9 | 34.0 - 47.0 % | [facility] | | | | | | [facility] | | | | | | [facility] | | | | | | [facility] | | | | | | [facility] | | + + + + + + | MCV | 89.2 | 83.0 - 101.0 fL | [facility] | | | | | | [facility] | | | | | | [facility] | | | | | | [facility] | | | | | | [facility] | | + + + + + + | MCH | 30.1 | 28.0 - 35.0 pg | [facility] | | | | | | [facility] | | | | | | [facility] | | | | | | [facility] | | | | | | [facility] | | + + + + + + | MCHC | 33.7 | 32.0 - 36.0 | [facility] | | | | | g/dL | [facility] | | | | | | [facility] | | | | | | [facility] | | | | | | [facility] | | + + + + + + | RDW-CV | 11.6 | <15.0 % | [facility] | | | | | | [facility] | | | | | | [facility] | | | | | | [facility] | | | | | | [facility] | | + + + + + + | RDW-SD | 38.3 | 35.1 - 46.3 fL | [facility] | | | | | | [facility] | | | | | | [facility] | | | | | | [facility] | | | | | | [facility] | | + + + + + + | Platelet | 410 | 140 - 440 K/uL | [facility] | | | Count | | | [facility] | | | | | | [facility] | | | | | | [facility] | | | | | | [facility] | | + + + + + + | MPV | 9.3 | 6.5 - 12.4 fL | [facility] | | | | | | [facility] | | | | | | [facility] | | | | | | [facility] | | | | | | [facility] | | + + + + + + | % | 56.3 | 45.0 - 82.0 % | [facility] | | | Neutrophils | | | [facility] | | | | | | [facility] | | | | | | [facility] | | | | | | [facility] | | + + + + + + | % | 29.5 | 20.0 - 45.0 % | [facility] | | | Lymphocytes | | | [facility] | | | | | | [facility] | | | | | | [facility] | | | | | | [facility] | | + + + + + + | % Monocytes | 6.6 | 4.0 - 12.0 % | [facility] | | | | | | [facility] | | | | | | [facility] | | | | | | [facility] | | | | | | [facility] | | + + + + + + | % | 7.0 (H) | 0.0 - 5.0 % | [facility] | | | Eosinophils | | | [facility] | | | | | | [facility] | | | | | | [facility] | | | | | | [facility] | | + + + + + + | % Basophils | 0.5 | 0.0 - 1.0 % | [facility] | | | | | | [facility] | | | | | | [facility] | | | | | | [facility] | | | | | | [facility] | | + + + + + + | % Immature | 0.1Comment: For | 0.0 - 0.4 % | [facility] | | | Granulocyte | patients, use the | | [facility] | | | s | special reference ranges | | [facility] | | | | listed below. | | [facility] | | | | | | [facility] | | + + + + + + | Absolute | 4.85 | 1.80 - 8.50 | [facility] | | | Neutrophils | | K/uL | [facility] | | | | | | [facility] | | | | | | [facility] | | | | | | [facility] | | + + + + + + | Absolute | 2.54 | 0.60 - 3.20 | [facility] | | | Lymphocytes | | K/uL | [facility] | | | | | | [facility] | | | | | | [facility] | | | | | | [facility] | | + + + + + + | Absolute | 0.57 | 0.00 - 1.00 | [facility] | | | Monocytes | | K/uL | [facility] | | | | | | [facility] | | | | | | [facility] | | | | | | [facility] | | + + + + + + | Absolute | 0.60 (H) | 0.00 - 0.40 | [facility] | | | Eosinophils | | K/uL | [facility] | | | | | | [facility] | | | | | | [facility] | | | | | | [facility] | | + + + + + + | Absolute | 0.04 | 0.00 - 0.10 | [facility] | | | Basophils | | K/uL | [facility] | | | | | | [facility] | | | | | | [facility] | | | | | | [facility] | | + + + + + + | Absolute | 0.01Comment: For | 0.00 - 0.03 | [facility] | | | Immature | patients, use | K/uL | [facility] | | | Granulocyte | the special reference | | MEDICAL | | | s | ranges listed below. | | [facility] | | | | | | LAB[facility]ATORY | | + + + + + + + + | Specimen | + + | Blood | + + + + + | Narrative | Performed At | + + + | IMMATURE GRANULOCYTES - For patients, use the following | [facility] | | reference ranges: Trim. Absolute (K/uL) Percentage (%) | [facility] | | 1st 0.003-0.091 K/uL 0.0-0.9% 2nd 0.007-0.247 K/uL | [facility] | | 0.1-2.0% [facility] 0.018-0.456 K/uL 0.1-2.0% | LABORATORY | + + + + + + + + | Performing | Address | City/State/Zipcode | Phone Number | | Organization | | | | + + + + + | [facility] | [address] | [place] | [phone] | | [facility] | | [address] | | | [facility] | | | | + + + + + C-Reactive Protein (11/19/2018 12:24 PM PST) + +-------+ + + + | Component | Value | Ref Range | Performed | Pathologist | | | | | At | Signature | + +-------+ + + + | C-Reactive | <2.0 | 0.0 - 9.0 mg/L | [facility] | | | Protein | | | [facility] | | | | | | [facility] | | | | | | [facility] | | | | | | [facility] | | + +-------+ + + + + + | Specimen | + + | Blood | + + + + + + + | Performing | Address | City/State/Zipcode | Phone Number | | Organization | | | | + + + + + | [facility] | [address] | [place] | [phone] | | [facility] | | [address] | | | [facility] | | | | + + + + + Comprehensive Metabolic Panel (11/19/2018 12:24 PM PST) + + + + + + | Component | Value | Ref Range | Performed | Pathologist | | | | | At | Signature | + + + + + + | Na | 138 | 136 - 145 | [facility] | | | | | mmol/L | [facility] | | | | | | [facility] | | | | | | [facility] | | | | | | [facility] | | + + + + + + | K | 3.8 | 3.5 - 5.1 | [facility] | | | | | mmol/L | [facility] | | | | | | [facility] | | | | | | [facility] | | | | | | LAB[facility] | | + + + + + + | Cl | 104 | 98 - 107 mmol/L | [facility] | | | | | | [facility] | | | | | | [facility] | | | | | | [facility] | | | | | | [facility] | | + + + + + + | CO2 | 26 | 21 - 32 mmol/L | [facility] | | | | | | [facility] | | | | | | [facility] | | | | | | [facility] | | | | | | [facility] | | + + + + + + | Anion Gap | 8 | 2 - 16 mmol/L | [facility] | | | | | | [facility] | | | | | | [facility] | | | | | | [facility] | | | | | | [facility] | | + + + + + + | Glucose | 96 | 74 - 106 mg/dL | [facility] | | | | | | [facility] | | | | | | [facility] | | | | | | [facility] | | | | | | [facility] | | + + + + + + | BUN | 11 | 7 - 18 mg/dL | [facility] | | | | | | [facility] | | | | | | [facility] | | | | | | [facility] | | | | | | [facility] | | + + + + + + | Creatinine | 0.73 | 0.55 - 1.02 | [facility] | | | | | mg/dL | [facility] | | | | | | [facility] | | | | | | [facility] | | | | | | LAB[facility] | | + + + + + + | eGFR, | >60Comment: GLOMERULAR | >=60 | [facility] | | | non- | FILTRATION | mL/min/1.73m2 | [facility] | | | Kitt[place] | RATE,ESTIMATED | | MEDICAL | | | | mL/min/1.94u5Pica than | | [facility]ARK | | | | 60 Chronic kidney [...] + + + + | Calcium | 9.2 | 8.5 - 10.1 | [facility] | | | | | mg/dL | [facility] | | | | | | [facility] | | | | | | [facility] | | | | | | [facility] | | + + + + + + | Albumin | 4.2 | 3.4 - 5.0 g/dL | [facility] | | | | | | [facility] | | | | | | [facility] | | | | | | [facility] | | | | | | [facility] | | + + + + + + | Bilirubin | 0.4 | 0.2 - 1.0 mg/dL | [facility] | | | Total | | | [facility] | | | | | | [facility] | | | | | | [facility] | | | | | | LAB[facility] | | + + + + + + | Total | 8.4 (H) | 6.4 - 8.2 g/dL | [facility] | | | Protein | | | [facility] | | | | | | [facility] | | | | | | [facility] | | | | | | [facility] | | + + + + + + | AST | 17 | 15 - 37 U/L | [facility] | | | | | | [facility] | | | | | | [facility] | | | | | | [facility] | | | | | | [facility] | | + + + + + + | ALT | 23 | 14 - 59 U/L | [facility] | | | | | | [facility] | | | | | | [facility] | | | | | | [facility] | | | | | | LAB[facility]ATORY | | + + + + + + | Alkaline | 85 | 74 - 255 U/L | [facility] | | | Phosphatase | | | [facility] | | | | | | [facility] | | | | | | [facility] | | | | | | LAB[facility]ATORY | | + + + + + + | Globulin | 4.2 (H) | 2.1 - 3.8 g/dL | [facility] | | | | | | [facility] | | | | | | [facility] | | | | | | [facility] | | | | | | [facility] | | + + + + + + | Albumin/Angelica | 1.0 | 0.8 - 2.0 | [facility] | | | bulin Ratio | | | [facility] | | | | | | [facility] | | | | | | [facility] | | | | | | LAB[facility] | | + + + + + + | BUN/Creatin | 15.1 | | [facility] | | | ine Ratio | | | [facility] | | | | | | [facility] | | | | | | [facility] | | | | | | LAB[facility]ORY | | + + + + + + + + | Specimen | + + | Blood | + + + + + + + | Performing | Address | City/State/Zipcode | Phone Number | | Organization | | | | + + + + + | [facility] | [address] | [place] | [phone] | | [facility] | | [address] | | | [facility] | | | | + + + + + documented in this encounter Visit Diagnoses + + | Diagnosis | + + | Arthralgia of left knee - Primary | + + documented in this encounter
--- OUTSIDE RECORDS SUMMARY | ~2020-09-05 | XMS | Encounter Summary ---
Demographics + + + | Address | [address] | | | [place] [address] | + + + | Home Phone [...] | | | | | [place] [address] | | + + + + + | Concha Paulino | ECON | [address] | | | | | [place] [address] | | + + + + + Care Team Providers + +------+ + | Care Retail Project Merchandiser Name | Role | Phone | + +------+ + | Tomeka Gomez | PCP | | | Fabian DO | | | + +------+ + Reason for Visit + + + | Reason | Comments | + + + | Back Pain | | + + + Encounter Details +--------+ + + + + | Date | Type | Department | Care Team | Description | +--------+ + + + + | 07/10/ | Hospital | [facility] | Tomeka Gomez | | | 2017 | Encounter | [facility] | Fatimah Peralta DO | | | | | [address] | [address] | | | | | [place] | [place] | | | | | [address] | [address] | | | | | [phone] | | | +--------+ + + + [...] + + + | Blood Pressure | 106/67 | 07/10/2017 10:41 PM | | | | | PDT | | + + + + + | Pulse | 81 | 07/10/2017 10:41 PM | | | | | PDT | | + + + + + | Temperature | 37.1 C (98.8 F) | 07/10/2017 10:41 PM | | | | | PDT | | + + + + + | Respiratory Rate | 18 | 07/10/2017 10:41 PM | | | | | PDT [...] documented in this encounter Discharge Instructions Instructions Naomi Solorio RN - 07/10/2017Discharge Education for the Undelivered Patient You can [...] +---------+--------+ + documented as of this encounter Miscellaneous Notes OB Triage Notes - Naomi Solorio RN - 07/10/2017 11:20 PM PDTUA negative; pt report s hardly any back discomfort at all now. No uc's palpated. PT to home with discharge instr uctions. B Triag e Notes - Naomi Solorio, NENA - 07/10/2017 10:50 PM PDTDrJosé Ortiz here on unit. Told Of pt here, 145 baseline, 26 3/7 days. No UC's palpated with back pain. Has had very few episodes since pt arrived of back pain. Dr. orderd UA; B Triage Notes - Naomi Solorio RN - 07/10/2017 10:00 PM PDTPt arrives to unit reporting Intermittent lower back pain; unsure if she has contractions with the pain. To room 351 for evaluation. documented in this encounter Plan of Treatment [...] | | | | | [place] [address] | | | | | | [phone] | | | | | | | | +--------+ + + + + | 09/22/ | Office | Physical Medicine | Gonzalo Merchant, | | | 2019 | Visit | and Rehabilitation | MD [address] | | | | | | [place] | | | | | | [address] | | | | | | | | +--------+ + + + + | 09/29/ | Virtual | Pain Medicine | Peggy Arreola | | | 2019 | Office | | [address] | | | | Visit | | [place] | | | | | | [place] | | | | | | [place] [address] | | | | | | [phone] | | | | | | | | +--------+ + + + + | 01/24/ | Office | Family Medicine | Kurt Campbell, | | | 2020 | Visit | | DO [address] | | | | | | [place] | | | | | | [address] | | | | | | | | +--------+ + + + + documented as of this encounter Procedures + +--------+ + + + | Procedure Name | Priori | Date/Time | Associated Diagnosis | Comments | | | ty | | | | + +--------+ + + + | URINALYSIS WITH | Routin | 07/10/2017 | | Results for this | | MICROSCOPIC | e | 10:57 PM | | procedure are in the | | | | PDT | | results section. | + +--------+ + + + documented in this encounter Results Urinalysis With Microscopic (07/10/2017 10:57 PM PDT) + + + + + [...] - 1.030 | [facility] | | | [place], | | | [facility] | | [...] | | Urine | | | [facility] | | [...] | | | Urine | | | [facility] | | [...] + + + + | Leukocyte | Small (A) | Negative | [facility] | | [...] + + + + | Squamous | 5-10 (A) | 0 - 2 /LPF | [...] | Present (A) | Negative /LPF | [facility] | | | Urine | | | [...] [address] | [place] | [phone] | | [facility] | | [id number] | | | - LABORATORY | | | | + + + + + documented in this encounter Visit Diagnoses Not on filedocumented in this encounter"
--- OUTSIDE RECORDS SUMMARY | ~2020-09-05 | XMS | Encounter Summary ---
Demographics + + + | Address | [address] | | | [place] [address] | + + + | Home Phone | | + + + | Preferred Language | Unknown | + + + | Marital Status | Single | + + + | Taoist Affiliation | 1059 | + + + | Race | Unknown | + + + | Ethnic Group | Not or | + + + Author + + + | Author | [facility] | | | and [place] | + + + | Organization | [facility] | | [...] | | | | | [place] [address] | | + + + + + | Concha Paulino | ECON | [address] | | | | | [place] [address] | | + + + + + Care Team Providers + +------+ + | Care Crisis Specialist Name | Role | Phone | + +------+ + | Kurt Campbell DO | PCP | | + +------+ + Encounter Details +--------+ + + + + | Date | Type | Department | Care Team | Description | +--------+ + + + + | 03/02/ | Abstract | [facility] | Provider, | | | 2019 | | [facility] | MD [address] | | | | | [address] | [place] [address]ozo. | | | | | [place] | [place] [address] | | | | | [address] | | | | | | [phone] | | | +--------+ + + + [...] Comments | + + +---------+ + | Yes | 5 Glasses of wine | 5.0 | | | | 0 Standard drinks | | | | | or equivalent | [...] | | | | | [place] [address] | | | | | | [phone] | | | | | | | | +--------+ + + + + | 09/22/ | Office | Physical Medicine | Gonzalo Merchant, | | | 2019 | Visit | and Rehabilitation | MD [address] | | | | | | [place] | | | | | | [address] | | | | | | | | +--------+ + + + + | 09/29/ | Virtual | Pain Medicine | Peggy Arreola | | | 2019 | Office | | [address] | | | | Visit | | [address] | | | | | | [place] | | | | | | [place] [address] | | | | | | [phone] | | | | | | | | +--------+ + + + + | 01/24/ | Office | Family Medicine | Kurt Campbell, | | | 2020 | Visit | | DO [address] | | | | | | [place] | | | | | | [address] | | | | | | | | +--------+ + + + + documented as of this encounter Visit Diagnoses Not on filedocumented in this encounter"
--- OUTSIDE RECORDS SUMMARY | ~2020-09-05 | XMS | Encounter Summary ---
Demographics + + + | Address | [address] | | | [place] [address] | + + + | Home Phone [...] + + + | Author | [facility] | | | and [place] | + + + | Organization | [facility] | | | [...] | | | | | [place] [address] | | + + + + + | Concha Paulino | ECON | [address] | | | | | [place] [address] | | + + + + + Care Team Providers + +------+ + | Care Steam Room Attendant Name | Role | Phone | + +------+ + PCP | Unavailable | + +------+ + Encounter Details +--------+ + + + + | Date | Type | Department | Care Team | Description | +--------+ + + + + | 03/15/ | Hospital | [facility] | Alexsander Sharma DDS | [facility] | | 2004 | Encounter [facility] | [address] | | | | | OUTPATIENT | [address] [place], [place] | | | | | PROCEDURES [address] | | | | | [address] | | | | | | [place], [place] | | | | | | [address] | | | | | | [phone] | | | +--------+ + + + [...] | | | | | [place] [address] | | | | | | [phone] | | | | | | | | +--------+ + + + + | 09/22/ | Office | Physical Medicine | Gonzalo Merchant, | | | 2019 | Visit | and Rehabilitation | MD [address] | | | | | | [place] | | | | | | [address] | | | | | | | | +--------+ + + + + | 09/29/ | Virtual | Pain Medicine | Peggy Arreola | | | 2019 | Office | | [address] | | | | Visit | | [place] | | | | | | [place], | | | | | | [place] [address] | | | | | | [phone] | | | | | | | | +--------+ + + + + | 01/24/ | Office | Family Medicine | Kurt Campbell, | | | 2020 | Visit | | DO [address] | | | | | | [place] | | | | | | [address] | | | | | | | | +--------+ + + + + documented as of this encounter Visit Diagnoses + + | Diagnosis | + + | Unspecified dental caries | + + documented in this encounter"
--- OUTSIDE RECORDS SUMMARY | ~2020-09-05 | XMS | Encounter Summary ---
Demographics + + + | Address | [address] | | | [place] [address] | + + + | Home Phone | | + + + | Preferred Language | Unknown | + + + | Marital Status | Single | + + + | Caodaism Affiliation | 1059 | + + + [...] | | | | | [place] [address] | | + + + + + | Concha Paulino | ECON | [address] | | | | | [place] [address] | | + + + + + Care Team Providers + +------+ + | Care Waterside Worker Name | Role | Phone | + +------+ + | Kurt Campbell DO | PCP | | + +------+ + Reason for Visit + + + | Reason | Comments | + + + | Depression | | + + + | Anxiety | | + + + Encounter Details +--------+---------+ + + + | Date | Type | Department | Care Team | Description | +--------+---------+ + + + | 07/27/ | Office | [facility] | Kurt Campbell, | Immunity status | | 2020 | Visit | [facility] | DO [address] | testing (Primary | | | | [address] | [place], [place] | Dx); Depression, | | | | [place], [place] | [address] | unspecified | | | | [address] | | depression type; | | | | [phone] | | Anxiety; Allergic | | | | | | reaction to drug, | | | | | | subsequent encounter | +--------+---------+ + + + Social History [...] + + + | Blood Pressure | 120/70 | 07/27/2020 2:58 PM | | | | | PDT | | + + + + + | Pulse | 117 | 07/27/2020 2:58 PM | | | | | PDT | | + + + + + | Temperature | - | - | | + + + + + | Respiratory Rate | - | - | | + + + + + | Oxygen Saturation | 98% | 07/27/2020 2:58 PM | | | | | PDT | | + + + + + | Inhaled Oxygen | - | - | | | Concentration | | | | + + + + + | Weight | 45.3 kg (99 lb 13.9 | 07/27/2020 2:58 PM | | | | oz) | PDT | | + + + + + | Height | - | - | | + + + + + | Body Mass Index | 18.27 | 07/18/2020 10:46 AM | | | | | PDT [...] encounter Progress Notes Kurt Campbell DO - 07/27/2020 2:45 PM PDTFormatting of this note might be different fro m the original. Subjective: Renny Saravia is a 20 y.o. female patient of Kurt Campbell DO. Chief Complaint: Depression and Anxiety HPI Depression/Anxiety: Patient is here for follow-up of Depression and anxiety. Started on Lexapro 10 mg daily. Denies side effects, she is tolerating well. Moods seem to be improving. Symptoms are improving Sleep Disturbance: Yes troubles falling and staying asleep Are you currently in counseling: no PHQ9 SCORE Office Visit from 07/27/2020 in [facility] Office Visit from 2019 in [facility] Office Visit from 06/01/2020 in [facility] Office Visit from 08/13/2019 in [facility] PHQ-9 Total Score (Patient Health Questionnaire) 10 10 17 6 ANXIETY/STRESS SCORE Office Visit from 07/27/2020 in [facility] Office Visit from 2019 in [facility] Office Visit from 06/01/2020 in [facility] Office Visit from 08/13/2019 in [facility] MARIE-7 Score (General Anxiety Disorder) 6 12 19 11 Fatigue Onset about 2-3 months ago. 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 Patient reports that she typically has low blood pressure and is wondering if this can cont ribute. Eye pain Right eye. Started this morning and pain is intermittent. This has happened in the past and it happened for a few days. Pain is aggravated by movement with her eye. PREVENTIVE CARE/PRIOR VISITS 1. Any recommendations from Health Maintenance: No Preventative Services TOPIC LAST DONE NEXT DUE Hepatitis C Screening 03/02/2019 Medication Management 04/05/2020 04/05/2021 Med Mgmt: Bun 04/05/2020 04/05/2021 Med Mgmt: Cr 04/05/2020 04/05/2021 Vaccine: Influenza 12/03/2013 07/26/2020 Cervical Cancer Screening (Pap) 04/25/2020 04/25/2021 Well Child Check 2002 Vaccine: Dtap/Tdap/Td 07/25/2010 2010 Vaccine: Pneumococcal 19-64 2005 2. Any immunizations necessary: Immunization History Administered Date(s) Administered DT (PED) 1999, 1999, 06/28/2000, 06/15/2004 DTP (PED) 1999 HEP A, 2 DOSE (PED/ADOL) 01/31/2001, 08/04/2001 HIB (PRP-T), 4 DOSE (PED) 1999, 1999, 1999, 06/28/2000 HPV, QUADRIVALENT, 3 DOSE (ADOL/ADULT) 08/05/2014, 11/08/2014, 04/12/2015 Hep B (PED/ADOL) 3 DOSE 1999, 1999, 1999 INFLUENZA TRIV W/PRES(PED/ADOL/ADULT),MULTIDOSE 09/14/2009, 10/02/2010, 12/03/2013 INFLUENZA, [id number], UNSPECIFIED 12/28/2009 INFLUENZA, UNSPECIFIED FORMULATION 09/14/2009, 10/02/2010, [...] reaction Macrobid [Nitrofuran Derivatives] Nausea And Vomiting Medications: She has a current medication list which includes the following prescription(s): acetaminoph en, albuterol, albuterol, baclofen, bupropion, cholecalciferol, epinephrine auto-injector, e scitalopram, flovent hfa, fluticasone, hydrocodone-acetaminophen, ibuprofen, l-methylfolate, and melatonin. Past Medical History She has a past [...] Dental surgery; Colonoscopy; Upper gastrointe stinal endoscopy; Colonoscopy (N/A, 05/27/2019); and labia plasty (06/14/2020). Family History: Her family history includes Alcohol [...] years: 3.00 Quit date: 2016 Years since quittin.6 Smokeless tobacco: Never Used Tobacco comment: vaping right now 3 mg nicotine occasionally Substance and Sexual Activity Alcohol use: Not Currently Alcohol/week: 5.0 standard drinks Types: 5 Glasses of wine per week Drug use: Not Currently Types: Marijuana Comment: CBD oil as needed Sexual activity: Yes Partners: Male control/protection: Yes Social History Narrative Lives with bio mom and m-grandmother Review of Systems Constitutional: Negative for fever. Eyes: Negative for visual disturbance. Respiratory: Negative for chest tightness, shortness of breath and wheezing. Cardiovascular: Positive for palpitations. Negative for chest pain. Neurological: Positive for dizziness. Negative for light-headedness. Objective: Vitals: 07/27/20 1458 BP: 120/70 Pulse: 117 SpO2: 98% Weight: 45.3 kg (99 lb 13.9 oz) Physical Exam Constitutional: She is oriented to person, place, and time. She appears well-developed and well-nourished. No distress. Appropriately dressed and groomed HENT: Head: Normocephalic and atraumatic. Eyes: Conjunctivae are normal. Right eye exhibits no discharge. Left eye exhibits no discha rge. Neck: Neck supple. No thyromegaly present. Cardiovascular: Normal rate, regular rhythm and normal heart sounds. No murmur heard. Pulmonary/Chest: Effort normal and breath sounds normal. No respiratory distress. She has n o wheezes. She has no rales. Abdominal: Soft. Bowel sounds are normal. She exhibits no distension and no mass. There is no abdominal tenderness. There is no rebound and no guarding. Musculoskeletal: General: No edema. Lymphadenopathy: She has no cervical adenopathy. Neurological: She is alert and oriented to person, place, and time. Coordination normal. Skin: Skin is warm and dry. She is not diaphoretic. Psychiatric: She has a normal mood [...] was found Confirmed by ELIO YANES MD ([id number]) on 06/17/2020 1:23:30 PM Assessment and Plans: 1. Immunity status testing Hepatitis B Surface Ab 2. Depression, unspecified depression type escitalopram (LEXAPRO) 10 mg tablet 3. Anxiety escitalopram (LEXAPRO) 10 mg tablet 4. Allergic reaction to drug, subsequent encounter EPINEPHrine auto-injector 0.3 mg/0.3 mL injection 1. Depression, unspecified depression type Depression improving. She is tolerating Lexapro. She is happy with the results. Feels cl ose to her goal. No changes to her Lexapro today. Refilled. Follow-up in 6 months - escitalopram (LEXAPRO) 10 mg tablet; Take 1 tablet by mouth Daily. Dispense: 90 tablet; Refill: 1 2. Anxiety Anxiety is improving. - escitalopram (LEXAPRO) 10 mg tablet; Take 1 tablet by mouth Daily. Dispense: 90 tablet; Refill: 1 3. Allergic reaction to drug, subsequent encounter Allergic reaction in the past. Refilled EpiPen. - EPINEPHrine auto-injector 0.3 mg/0.3 mL injection; Inject 0.3 mLs into the muscle as need ed for Anaphylaxis. Dispense: 2 each; Refill: 1 4. Immunity status testing Patient is finished her second hep B series. Check titers - Hepatitis B Surface Ab; Future 5. Fatigue Fatigue continues to be a problem. She is sleeping an adequate amount but she continues to do shift work at night. Depression is improving. Treatment of fatigue. Discussed different, likely multifactorial etiologies. Will run tests as ordered. Discussed healthy, balanced eating, exercise regimen, good sleep hygiene and re ducing stress where possible. Labs reviewed Care instructions and warning signs were discussed. Medications per orders. Side effects discussed. Labs and investigations per orders I STEFF Palmer, am acting as a scribe on behalf of, and in the presence of Kurt bee DO. Electronically signed by: Miya Jolly [employer]sembl[employer] 07/27/2020 2:54 PM PDT I have reviewed and edited this note: Kurt Campbell DO 07/28/20 I, Kurt Campbell DO , personally performed the services described in this documentation, as scribed in my presence by Miya Jolly and it is both accurate and complete. Electronical ly signed by Kurt Campbell DO on 07/28/2020 at 7:58 AM PDT . This note is dictated using appweevr voice recognition software. This note was dictated [...] | | | | | [place] [address] | | | | | | [phone] | | | | | | | | +--------+ + + + + | 09/22/ | Office | Physical Medicine | Gonzalo Merchant, | | 2019 | Visit | and Rehabilitation | MD [address]ane [address] | | | | | | [place] | | | | | | [id number] | | | | | | | | +--------+ + + + + | 09/29/ | Virtual | Pain Medicine | Peggy Arreola | | 2019 | Office | | [address] | | | | Visit | | [place] | | | | | | [place], | | | | | | [place] [address] | | | | | | [phone] | | | | | | | | +--------+ + + + + | 01/24/ | Office | Family Medicine | Kurt Campbell, | | | 2020 | Visit | | DO [address] | | | | | | [place] | | | | | | [address] | | | | | | | | +--------+ + + + + documented as of this encounter Results Hepatitis B Surface Ab (07/27/2020 3:49 PM PDT) + + + + + + | Component | Value | Ref Range | Performed | Pathologist | | | | | At | Signature | + + + + + + | Hepatitis B | ReactiveComment: | | REFERENCE | | | Surface | Non | | LAB [facility] | | | Antibody | Reactive: Inconsistent | | - BKR | | | Qual | with immunity, | | | | | | | | | | | | less than 10 | | | | | | mIU/mL | | | | | | Reactive: | | | | | | Consistent with | | | | | | immunity, | | | | | | | | | | | | greater than 9.9 | | | | | | mIU/mL | | | | + + + + + + + + | Specimen | + + | Blood | + + + + + | Narrative | Performed At | + + + | Performed at: [address] [facility] [address], | REFERENCE LAB | | [place], [place] [id number] Straight Line Edger: Eros Godinez MD, Phone: | [facility] | | [phone] | | + + + + + + + + | Performing | Address | City/State/Zipcode | Phone Number | | Organization | | | | + + + + + | [facility] | [address] | [place], [place] | [phone] | | [facility] | [facility] | [address] | | + + + + + documented in this encounter Visit Diagnoses + + | Diagnosis | + + | Immunity status testing - Primary Antibody response examination | + + | Depression, unspecified depression type | + + | Anxiety Anxiety state, unspecified | + + | Allergic reaction to drug, subsequent encounter | + + documented in this encounter"
--- OUTSIDE RECORDS SUMMARY | ~2020-09-05 | XMS | Encounter Summary ---
Demographics + + + | Address | [address] | | | [place] [address] | + + + | Home Phone | | + + + | Preferred Language | Unknown | + + + | Marital Status | Single | + + + | Mormonism Affiliation | 1059 | + + + | Race | Unknown | + + + | Ethnic Group | Not or | + + + Author + + + | Author | [facility] | | | and [place] | + + + | Organization | [facility] | | | [...] | | | | | [place] [address] | | + + + + + | Concha Paulino | ECON | [address] | | | | | [place] [address] | | + + + + + Care Team Providers + +------+ + | Care Acute Care Certified Nursing Assistant Name | Role | Phone | + +------+ + | Kurt Campbell DO | PCP | | + +------+ + Reason for Visit + +--------+ + | Reason | Onset | Comments | | | Date | | + +--------+ + | Social Work Consult | 01/27/ | | | | 2020 | | + +--------+ + Encounter Details +--------+ + + + + | Date | Type | Department | Care Team | Description | +--------+ + + + + | 01/27/ | Telephone | [facility] | Fany Bello, | Social Work Consult | | 2019 | | [facility] [place] | GREETING CARD EDITOR | | | | | [address] | | | | | | [place] | | | | | | [address] | | | | | | [phone] | | | +--------+ + + + [...] this encounter Miscellaneous Notes Telephone Encounter - Fany Bello MSW - 01/28/2020 5:10 PM Kal RECIO contacted michael donovan for wellness check following her appointment. She stated that she still has a 100 degree temperature but feels "a bit better". She has been following precautions and self-isolating . Renny stated that she has not engaged with the community and will continue to self-isolate until she no longer has a fever. She has received communications about the virus and voice d understanding of the precautions. This SW gave information about [employer] website for additiona l information. She is keeping in contact with friends via text messaging. She would apprec iate a follow-up call tomorrow. documented in this encounter Plan of Treatment [...] | | | | | [place] [address] | | | | | | [phone] | | | | | | | | +--------+ + + + + | 09/22/ | Office | Physical Medicine | Gonzalo Merchant, | | | 2019 | Visit | and Rehabilitation | MD [address]ane [address] | | | | | | [place] | | | | | | [id number] | | | | | | | | +--------+ + + + + | 09/29/ | Virtual | Pain Medicine | Peggy Arreola | | | 2019 | Office | | [address] | | | | Visit | | [place] | | | | | | [place] | | | | | | [place] [address] | | | | | | [phone] | | | | | | | | +--------+ + + + + | 01/24/ | Office | Family Medicine | Kurt Campbell, | | | 2020 | Visit | | DO [address] | | | | | | [place] | | | | | | [address] | | | | | | | | +--------+ + + + + documented as of this encounter Visit Diagnoses Not on filedocumented in this encounter
--- OUTSIDE RECORDS SUMMARY | ~2020-09-05 | XMS | Encounter Summary ---
Demographics + + + | Address | [address] | | | [place] [address] | + + + | Home Phone | | + + + | Preferred Language | Unknown | + + + | Marital Status | Single | + + + | Yazdanism Affiliation | [id number] | + + + | Race | Unknown | + + + | Ethnic Group | Not or | + + + Author + + + | Author | [facility] | | | and [place] | + + + | Organization | [facility] | | | [...] | | | | | [place] [address] | | + + + + + | Concha Paulino | ECON | [address] | | | | | [place] [address] | | + + + + + Care Team Providers + +------+ + | Care Asset Protection Professional Name | Role | Phone | + +------+ + | Kurt Campbell DO | PCP | | + +------+ + Reason for Visit +---------+ + | Reason | Comments | +---------+ + | Fatigue | | +---------+ + Encounter Details +--------+---------+ + + + | Date | Type | Department | Care Team | Description | +--------+---------+ + + + | 04/29/ | Office | [facility] | Kurt Campbell, | Fatigue, unspecified | | 2020 | Visit | [facility] [place] | DO [address] | type (Primary Dx); | | | | [address] | [place] | Depression, | | | | [place] | [address] | unspecified | | | | [address] | | depression type; | | | | [phone] | | Anxiety; Seasonal | | | | | | allergies | +--------+---------+ + + + Social History [...] + + + | Blood Pressure | 126/76 | 04/29/2020 11:21 AM | | | | | PDT | | + + + + + | Pulse | 120 | 04/29/2020 11:21 AM | | | | | PDT | | + + + + + | Temperature | - | - | | + + + + + | Respiratory Rate | - | - | | + + + + + | Oxygen Saturation | 99% | 04/29/2020 11:21 AM | | | | | PDT | | + + + + + | Inhaled Oxygen | - | - | | | Concentration | | | | + + + + + | Weight | 50.9 kg (112 lb 3.4 | 04/29/2020 11:21 AM | | | | oz) | PDT | | + + + + + | Height | - | - | | + + + + + | Body Mass Index | 20.52 | 02/25/2020 4:15 PM | | | [...] encounter Progress Notes Kurt Campbell DO - 04/29/2020 11:15 AM PDTFormatting of this note might be different fro m the original. Subjective: Renny Saravia is a 20 y.o. female patient of Kurt Campbell DO. Chief Complaint: Fatigue HPI Fatigue Increasing symptoms for about the past 2 months, patient complains of fatigue. Patient feel s like she is not receiving adequate amounts of sleep. On average is sleeping about 8-9 hour s a night. States that about once a week she will get ill. Symptoms will last for about 1-3 days. Comp lains of sinus pressure, sob, low-grade fevers, nausea, nasal congestion. She is taking Zyrtec daily, Benadryl prn. She is concerned that her WBC's are elevated and contributing in any way to abnormal sympto ms. Depression/Anxiety: Patient is here for follow-up of Depression and anxiety. She has had increased stress in her life. Feels sadness frequently. Her appetite is very poor. Symptoms are worsening Are you currently in counseling: no PHQ9 SCORE Office Visit from 08/13/2019 in [facility] Office Visit from 2018 in [facility] Office Visit from 03[facility]02/2019 in [facility] PHQ-9 Total Score (Patient Health Questionnaire) 6 16 19 ANXIETY/STRESS SCORE Office Visit from 08/13/2019 in [facility] Office Visit from 2018 in [facility] Office Visit from 03/02/2019 in [facility] MARIE-7 Score (General Anxiety Disorder) 11 21 20 PREVENTIVE CARE/PRIOR VISITS 1. Any recommendations from Health Maintenance: No Preventative Services TOPIC LAST DONE NEXT DUE Vaccine: Influenza 12/03/2013 07/26/2020 Cervical Cancer Screening (Pap) 01/24/2020 Well Child Check 2002 Vaccine: Dtap/Tdap/Td 07/25/2010 2010 Vaccine: Pneumococcal 19-64 2005 2. Any immunizations necessary: no Immunization History Administered Date(s) Administered DT (PED) 1999, 1999, 06/28/2000, 06/15/2004 DTP (PED) 1999 HEP A, 2 DOSE (PED/ADOL) 01/31/2001, 08/04/2001 HIB (PRP-T), 4 DOSE (PED) 1999, 1999, 1999, 06/28/2000 HPV, QUADRIVALENT, 3 DOSE (ADOL/ADULT) 08/05/2014, 11/08/2014, 04/12/2015 Hep B (PED/ADOL) 3 DOSE 1999, 1999, 1999 INFLUENZA TRIV W/PRES(PED/ADOL/ADULT),MULTIDOSE 09/14/2009, 10/02/2010, 12/03/2013 INFLUENZA, [id number], UNSPECIFIED 12/28/2009 INFLUENZA, UNSPECIFIED FORMULATION 09/14/2009, 10/02/2010, [...] following prescription(s): acetaminoph en, albuterol, albuterol, bupropion, cyclobenzaprine, diphenhydramine, epinephrine auto-inje ctor, flovent hfa, fluticasone, loratadine, lorazepam, meclizine, misc natural products, nor gestimate-ethinyl estradiol, ondansetron, ranitidine, and trazodone. Past Medical History She has [...] Last attempt to quit: 2016 Years since quittin.4 Smokeless tobacco: Current User Tobacco comment: vaping [...] m-grandmother Review of Systems Constitutional: Positive for fatigue and fever. HENT: Positive for congestion and sinus pressure. Respiratory: Positive for shortness of breath. Gastrointestinal: Positive for nausea. Allergic/Immunologic: Positive for environmental allergies. Objective: Vitals: 04/29/20 1121 BP: 126/76 Pulse: 120 SpO2: 99% Weight: 50.9 kg (112 lb 3.4 oz) Physical Exam Constitutional: She is oriented to person, place, and time. She appears well-developed and well-nourished. No distress. HENT: Head: Normocephalic and atraumatic. Right Ear: Tympanic membrane, external ear and ear canal normal. No drainage or tenderness. Tympanic membrane is not injected, not erythematous and not bulging. Left Ear: Tympanic membrane, external ear and ear canal normal. No drainage or tenderness. Tympanic membrane is not injected and not erythematous. Tympanic membrane mobility is normal . Nose: Rhinorrhea present. No sinus tenderness. No epistaxis. Mouth/Throat: Uvula is midline, oropharynx is clear and moist and mucous membranes are norm al. No oral lesions. No oropharyngeal exudate, posterior oropharyngeal edema, posterior orop haryngeal erythema or tonsillar abscesses. Eyes: Pupils are equal, round, and reactive to light. Conjunctivae are normal. Right eye ex hibits no discharge. Left eye exhibits no discharge. No scleral icterus. Neck: Normal range of motion. Neck supple. No JVD present. No thyromegaly present. Cardiovascular: Normal rate, regular rhythm and normal heart sounds. Exam reveals no gallop and no friction rub. No murmur heard. Pulmonary/Chest: Effort normal and breath sounds normal. No accessory muscle usage or strid or. No tachypnea. No respiratory distress. She has no wheezes. She has no rales. She exhibit s no tenderness. Abdominal: Soft. Bowel sounds are normal. She exhibits no distension and no mass. There is abdominal tenderness in the right lower quadrant. There is no rebound and no guarding. Musculoskeletal: General: No edema. Lymphadenopathy: She has no cervical adenopathy. Neurological: She is alert and oriented to person, place, and time. Coordination normal. Skin: Skin is warm and dry. No rash noted. She is not diaphoretic. Psychiatric: She has a normal mood and affect. Her behavior is normal. Nursing note and vitals reviewed. Ortho Exam Results for orders placed or performed during the hospital encounter of 04/05/20 Urinalysis with Microscopic with Culture if Indicated Result Value Ref Range Color, Urine Straw Light Yellow, Yellow, Straw Clarity Clear Clear pH, Urine 8.0 5.0 - 8.0 Specific Kersey, Urine 1.009 1.001 - 1.030 Protein, Urine Negative Negative Blood, Urine Large (A) Negative Glucose, Urine Negative Negative Ketones, Urine Negative Negative Bilirubin, Urine Negative Negative Nitrite, Urine Negative Negative Leukocyte Esterase, Urine Negative Negative Urobilinogen, Urine Negative 0.2 mg/dL, 1.0 mg/dL, Negative White Blood Cells, Urine 0-2 0 - 2 /HPF Red Blood Cells, Urine 0-2 0 - 2 /HPF Squamous Epithelial Cells, Urine 25-50 (A) 0 - 2 /LPF Bacteria, Urine Negative Negative /HPF Mucus, Urine Present (A) Negative /LPF Urine Comment Urine Culture Not Indicated CBC with Differential Result Value Ref Range WBC 13.5 (H) 4.0 - 11.0 K/uL RBC 4.47 3.70 - 5.20 M/uL Hemoglobin 13.9 11.5 - 16.0 g/dL Hematocrit 41.1 34.0 - 47.0 % MCV 91.9 83.0 - 101.0 fL MCH 31.1 28.0 - 35.0 pg MCHC 33.8 32.0 - 36.0 g/dL RDW-CV 12.5 <15.0 % RDW-SD 42.1 35.1 - 46.3 fL Platelet Count 334 140 - 440 K/uL MPV 9.2 6.5 - 12.4 fL % Neutrophils 67.8 45.0 - 82.0 % % Lymphocytes 21.5 20.0 - 45.0 % % Monocytes 7.5 4.0 - 12.0 % % Eosinophils 2.5 0.0 - 5.0 % % Basophils 0.5 0.0 - 1.0 % % Immature Granulocytes 0.2 0.0 - 0.4 % Absolute Neutrophils 9.16 (H) 1.80 - 8.50 K/uL Absolute Lymphocytes 2.90 0.60 - 3.20 K/uL Absolute Monocytes 1.01 (H) 0.00 - 1.00 K/uL Absolute Eosinophils 0.34 0.00 - 0.40 K/uL Absolute Basophils 0.07 0.00 - 0.10 K/uL Absolute Immature Granulocytes 0.03 0.00 - 0.03 K/uL % nRBC 0 0 - 2 per 100 WBCs Absolute nRBC 0.00 0.00 - 0.01 K/uL Comprehensive Metabolic Panel Result Value Ref Range Na 140 136 - 145 mmol/L K 3.5 3.4 - 5.1 mmol/L Cl 107 98 - 107 mmol/L CO2 28 20 - 31 mmol/L Anion Gap 5 3 - 16 mmol/L Glucose 90 60 - 106 mg/dL BUN 8 (L) 9 - 23 mg/dL Creatinine 0.76 0.55 - 1.02 mg/dL eGFR if not >60 >=60 mL/min/1.73m2 Calcium 9.6 8.7 - 10.4 mg/dL Albumin 4.4 3.2 - 4.8 g/dL Bilirubin Total 0.7 0.3 - 1.2 mg/dL Total Protein 6.9 5.7 - 8.2 g/dL AST 18 0 - 34 U/L ALT 21 10 - 49 U/L Alkaline Phosphatase 63 46 - 116 U/L Globulin 2.5 2.1 - 3.8 g/dL Albumin/Globulin Ratio 1.8 0.8 - 1.9 BUN/Creatinine Ratio 10.5 Lipase Result Value Ref Range Lipase 47 12 - 53 U/L POCT Test, Urine, QUAL Result Value Ref Range Test, Urine, POC Negative Negative Internal QC Acceptable Acceptable Specific Kersey, POC Lot Number [id number] Expiration Date 2020-11-27 Assessment and Plans: 1. Fatigue, unspecified type Vitamin D, Deficiency Screen (25-Hydroxy) TSH CBC with Differential Vitamin B-12 Cytomegalovirus Ab, IgG and IgM Danyell-Farooq Virus Panel Iron, Total 2. Depression, unspecified depression type buPROPion (WELLBUTRIN XL) 300 mg 24 hr tablet 3. Anxiety buPROPion (WELLBUTRIN XL) 300 mg 24 hr tablet 4. Seasonal allergies fluticasone (FLONASE) 50 mcg/nasal spray 1. Fatigue, unspecified type Treatment of fatigue. Discussed different, likely multifactorial etiologies. Will run tests as ordered. Discussed healthy, balanced eating, exercise regimen, good sleep hygiene and re ducing stress where possible. Encouraged a consistent nighttime routine. Increase exercise and activity levels within maggie ly routine. WBC mildly elevated, reassurance that this is not dangerous as there can be varying explana tions for reactive elevations. 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 2. Depression, unspecified depression type 3. Anxiety Mood can impact energy levels. Will need to consider that stress has potential to cause a p hysical impact on her body. Room for improvement with medication, increase Wellbutrin to 300 mg daily. - Anxiety and depression scores reviewed with patient - Take medications as directed and call or return if you experience side effects - Counseling advised for depression that is not under good control or if new emotional stre ssors develop - return if symptoms worsen or if you are having thoughts of self harm - Use your social support network to help you as needed - Work into your schedule activities that are stress relieving and improve your emotional w ell being. - buPROPion (WELLBUTRIN XL) 300 mg 24 hr tablet; Take 1 tablet by mouth Daily. Dispense: 9 0 tablet; Refill: 1 4. Seasonal allergies Will be mindful of allergy symptoms contributing. Add Flonase daily. - fluticasone (FLONASE) 50 mcg/nasal spray; 2 sprays by Nasal route Daily. Dispense: 16 g; Refill: 12 25 minute visit > 50% counseling regarding the listed conditions, options for treatment, a nd possible risks. Return in about 4 weeks (around 05/27/2020) for moods - medication. Care instructions and warning signs were discussed. Medications per orders. Side effects discussed. Labs and investigations per orders I STEFF Palmer, am acting as a scribe on behalf of, and in the presence of Kurt bee DO. Electronically signed by: Miya Jolly, Manager Pulmonary 04/29/2020 11:21 AM I have reviewed and edited this note: Kurt Campbell DO 04/30/20 I, Kurt Campbell DO , personally performed the services described in this documentation, as scribed in my presence by Miya Jolly and it is both accurate and complete. Electronical ly signed by Kurt Campbell DO on 04/30/2020 at 11:06 PM . This note is dictated using [employer] voice recognition software. This note was dictated [...] | | | | | [place] [address] | | | | | | [phone] | | | | | | | | +--------+ + + + + | 09/22/ | Office | Physical Medicine | Gonzalo Merchant, | | | 2019 | Visit | and Rehabilitation | [address] | | | | | | [place] | | | | | | [address] | | | | | | | | +--------+ + + + + | 09/29/ | Virtual | Pain Medicine | Peggy Arreola | | | 2019 | Office | | [address] | | | | Visit | | [place] | | | | | | [place] | | | | | | [place] [address] | | | | | | [phone] | | | | | | | | +--------+ + + + + | 01/24/ | Office | Family Medicine | Kurt Campbell, | | | 2020 | Visit | | DO [address] | | | | | | [place] | | | | | | [address] | | | | | | | | +--------+ + + + + documented as of this encounter Results Iron, Total (04/29/2020 12:14 PM PDT) + +-------+ + + + | Component | Value | Ref Range | Performed | Pathologist | | | | | At | Signature | + +-------+ + + + | Iron | 62 | 50 - 170 ug/dL | [facility] | | | | | [...] + + + | [facility] | [address] | [place] | [phone] | | [facility] | | [address] | | | [facility] | | | | + + + + + Danyell-Farooq Virus Panel (04/29/2020 12:14 PM PDT) + + + + + + | Component | Value | Ref Range | Performed | Pathologist | | | | | At | Signature | + + + + + + | EBV Ab IgM | <36.0Comment: | 0.0 - 35.9 U/mL | [facility] | | | to Capsid | | | LAB [facility] | | | | Negative | | - [facility] | | | | <36.0 | | | | | | | | | | | | | | | | | | Equivocal 36.0 - 43.9 | | | | | | | | | | | | | | | | | | Positive | | | | | | >43.9 | | | | + + + + + + | EBV Ab IgG | 161.0 (H)Comment: | 0.0 - 17.9 U/mL | [facility] | | | to Capsid | | | LAB [facility] | | | | | | - [facility] | | | | Negative | | | | | | <18.0 | | | | | | | | | | | | Equivocal 18.0 | | | | | | - 21.9 | | | | | | | | | | | | Positive | | | | | | >21.9 | | | | + + + + + + | EBV Ab IgG | <18.0Comment: | 0.0 - 17.9 U/mL | [facility] | | | to Nuclear | | | LAB [facility] | | | Antigen | Negative | | - [facility] | | | | <18.0 | | | | | | | | | | | | | | | | | | Equivocal 18.0 - 21.9 | | | | | | | | | | | | | | | | | | Positive | | | | | | >21.9 | | | | + + + + + + | Interpretat | CommentComment: | | [facility] | | | ion: | EBV | | LAB [facility] | | | | Interpretation ChartKey: | | - [facility]KR | | | | Antibody Present + | | | | | | Antibody Absent | | | | | | -Interpretation | | | | | | VCA-IgM | | | | | | VCA-IgG EBNA-IgGNo | | | | | | previous infection/ | | | | | | - - | | | | | | | | | | | | -SusceptiblePrimary | | | | | | infection (new | | | | | | + + | | | | | | -or recent)Past | | | | | | Infection | | | | | | +or- + | | | | | | +See comment | | | | | | below* | | | | | | + - | | | | | | -*Results indicate | | | | | | infection with EBV at | | | | | | some time however cannot | | | | | | predict the timing of | | | | | | the infection since | | | | | | antibodies to EBNA | | | | | | usually develop after | | | | | | primary infection or, | | | | | | alternatively, | | | | | | approximately 5-10% of | | | | | | patients with EBV never | | | | | | develop antibodies to | | | | | | EBNA. | | | | + + + + + + + + | Specimen | + + | Blood | + + + + + | Narrative | Performed At | + + + | Performed at: [address] [facility] [address], | REFERENCE LAB | | [place], [place] [id number] Admitting Coordinator: Eros Godinez MD, Phone: | [facility] | | [phone] | | + + + + + + + + | Performing | Address | City/State/Zipcode | Phone Number | | Organization | | | | + + + + + | REFERENCE LAB | [address] | [place], [place] | [phone] | | [facility] | [facility] | [address] | | + + + + + Cytomegalovirus Ab, IgG and IgM (04/29/2020 12:14 PM PDT) + + + + + + | Component | Value | Ref Range | Performed | Pathologist | | | | | At | Signature | + + + + + + | CMV IgG | <0.60Comment: | 0.00 - 0.59 | [facility] | | | | | U/mL | LAB [facility] | | | | Negative | | - [facility]KR | | | | <0.60 | | | | | | | | | | | | Equivocal | | | | | | 0.60 - 0.69 | | | | | | | | | | | | Positive | | | | | | >0.69 | | | | + + + + + + | CMV IgM | <30.0Comment: | 0.0 - 29.9 | [facility] | | | | | AU/mL | [facility] | | | | Negative | | - BKR | | | | <30.0 | | | | | | | | | | | | | | | | | | Equivocal 30.0 - | | | | | | 34.9 | | | | | | | | | | | | Positive | | | | | | >34.9A positive | | | | | | result is generally | | | | | | indicative of | | | | | | acuteinfection, | | | | | | reactivation or | | | | | | persistent IgM | | | | | | production. | | | | + + + + + + + + | Specimen | + + | Blood | + + + + + | Narrative | Performed At | + + + | Performed at: [address] - [facility] [address], | REFERENCE LAB | | [place], [place] [id number] Admitting Coordinator: Eros Godinez MD, Phone: | [facility] | | [phone] | | + + + + + + + + | Performing | Address | City/State/Zipcode | Phone Number | | Organization | | | | + + + + + | REFERENCE LAB | [address] | [place], [place] | [phone] | | [facility] | [facility] | [address] | | + + + + + Vitamin B-12 (04/29/2020 12:14 PM PDT) + + + + + + | Component | Value | Ref Range | Performed | Pathologist | | | | | At | Signature | + + + + + + | VITAMIN | 541Comment: DEFICIENT: | 156 - 672 pg/mL | [facility] | | | B-12 | <145 | | [facility] | | | | pg/mLINDETERMINATE: | | MEDICAL | | | | 145-180 pg/mL | | CENTER - | | | | | | LABORATORY | | + + + + + + + + | Specimen | + + | Blood | + + + + + + + | Performing | Address | City/State/Zipcode | Phone Number | | Organization | | | | + + + + + | [facility] | [address] | [place] | [phone] | | [facility] | | [address] | | | - LABORATORY | | | | + + + + + CBC with Differential (04/29/2020 12:14 PM PDT) + + + + + + | Component | Value | Ref Range | Performed | Pathologist | | | | | At | Signature | + + + + + + | White Blood | 8.3 | 4.0 - 11.0 K/uL | [facility] | | | Cells | | | [facility] | | | | | | [facility] | | | | | [facility] | | | | | | [facility] | | + + + + + + | Red Blood | 4.25 | 3.70 - 5.20 | [facility] | | | Cells | | M/uL | [facility] | | | | | | [facility] | | | | | | [facility] | | | | | | [facility] | | + + + + + + | Hemoglobin | 13.5 | 11.5 - 16.0 | [facility] | | | | | g/dL | [facility] | | | | | | [facility] | | | | | | [facility] | | | | | | [facility] | | + + + + + + | Hematocrit | 38.8 | 34.0 - 47.0 % | [facility] | | | | | | [facility] | | | | | | [facility] | | | | | | [facility] | | | | | | [facility] | | + + + + + + | MCV | 91.3 | 83.0 - 101.0 fL | [facility] | | | | | | [facility] | | | | | | [facility] | | | | | | [facility] | | | | | | [facility] | | + + + + + + | MCH | 31.8 | 28.0 - 35.0 pg | [facility] | | | | | | [facility] | | | | | | [facility] | | | | | | [facility] | | | | | | [facility] | | + + + + + + | MCHC | 34.8 | 32.0 - 36.0 | [facility] | | | | | g/dL | [facility] | | | | | | [facility] | | | | | | [facility] | | | | | | [facility] | | + + + + + + | RDW-CV | 12.0 | <15.0 % | [facility] | | | | | | [facility] | | | | | [facility] | | | | | | [facility] | | | | | | [facility] | | + + + + + + | RDW-SD | 40.4 | 35.1 - 46.3 fL | [facility] | | | | | | [facility] | | | | | [facility] | | | | | | [facility] | | | | | | [facility] | | + + + + + + | Platelet | 369 | 140 - 440 K/uL | [facility] | | | Count | | | [facility] | | | | | | [facility] | | | | | | [facility] | | | | | | [facility] | | + + + + + + | MPV | 9.7 | 6.5 - 12.4 fL | [facility] | | | | | | [facility] | | | | | [facility] | | | | | | [facility] | | | | | | [facility] | | + + + + + + | % | 55.9 | 45.0 - 82.0 % | [facility] | | | Neutrophils | | | [facility] | | | | | | [facility] | | | | | | [facility] | | | | | | [facility] | | + + + + + + | % | 28.4 | 20.0 - 45.0 % | [facility] | | | Lymphocytes | | | [facility] | | | | | | [facility] | | | | | | [facility] | | | | | | [facility] | | + + + + + + | % Monocytes | 9.5 | 4.0 - 12.0 % | [facility] | | | | | | [facility] | | | | | [facility] | | | | | | [facility] | | | | | | [facility] | | + + + + + + | % | 5.6 (H) | 0.0 - 5.0 % | [...] + + + + | Absolute | 4.62 | 1.80 - 8.50 | [facility] | | | Neutrophils | | K/uL | [facility] | | | | | | [facility] | | | | | | [facility] | | | | | | [facility] | | + + + + + + | Absolute | 2.34 | 0.60 - 3.20 | [facility] | | | Lymphocytes | | K/uL | [facility] | | | | | | [facility] | | | | | | [facility] | | | | | | [facility] | | + + + + + + | Absolute | 0.78 | 0.00 - 1.00 | [facility] | | | Monocytes | | K/uL | [facility] | | | | | [facility] | | | | | | [facility] | | | | | | [facility] | | + + + + + + | Absolute | 0.46 (H) | 0.00 - 0.40 | [facility] [...] K/uL | [facility] | | 0.1-2.0% 3rd 0.018-0.456 K/uL 0.1-2.0% | LABORATORY | + + + + + + + + | Performing | Address | City/State/Zipcode | Phone Number | | Organization | | | | + + + + + | [facility] | [address] | [place] | [phone] | | [facility] | | [address] | | | [facility] | | | | + + + + + TSH (04/29/2020 12:14 PM PDT) + +-------+ + + + | Component | Value | Ref Range | Performed | Pathologist | | | | | At | Signature | + +-------+ + + + | TSH | 1.29 | 0.36 - 3.74 | [facility] | | | | | uIU/mL | [facility] | | | | | [...] + + + | [facility] | [address] | [place] | [phone] | | [facility] | | [address] | | | [facility] | | | | + + + + + Vitamin D, Deficiency Screen (25-Hydroxy) (04/29/2020 12:14 PM PDT) + +--------+ + + + | Component | Value | Ref Range | Performed | Pathologist | | | | | At | Signature | + +--------+ + + + | Vitamin D, | 22 (L) | 30 - 100 ng/mL | [facility] | | | 25 Hydroxy | | | [facility] | | [...] ST[facility] | [address] | [place] | [phone] | | [facility] | | [address] | | | - LABORATORY | | | | + + + + + documented in this encounter Visit Diagnoses + + | Diagnosis | + + | Fatigue, unspecified type - Primary | + + | Depression, unspecified depression type | + + | Anxiety Anxiety state, unspecified | + + | Seasonal allergies Allergic rhinitis, cause unspecified | + + documented in this encounter"
--- OUTSIDE RECORDS SUMMARY | ~2020-09-05 | XMS | Encounter Summary ---
Demographics + + + | Address | [address] [facility] | | | [place] [address] | + + + | Home Phone | | + + + | Preferred Language | Unknown | + + + | Marital Status | Single | + + + | Shinto Affiliation | [id number] | + + + | Race | Unknown | + + + | Ethnic Group | Not or | + + + Author + + + | Author | [facility] | | | and [place] | + + + | Organization | [facility] | | [...] | | | | | [place] [address] | | + + + + + | Concha Paulino | ECON | [address] | | | | | [place] [address] | | + + + + + Care Team Providers + +------+ + | Care Environmental Health Technician Name | Role | Phone | + +------+ + | Kurt Campbell DO | PCP | | + +------+ + Reason for Visit + + + | Reason | Comments | + + + | Follow-up | | + + + Evaluate & Treat (Routine) +--------+--------+ + + + + | Status | Reason | Specialty | Diagnoses / | Referred By | Referred To | | | | | Procedures | Contact | Contact | +--------+--------+ + + + + | Closed | | Cardiology | Diagnoses | Jo, | [facility] | | | | | Tachycardia | MD Leonid | Cardiology | | | | | Procedures | [address] | [address] | | | | | [place] [place] | [place] | [place], | | | | | | [place] | [place] | | | | | | [address] | [address] | | | | | | Phone: | Phone: | | | | | | [phone] | [phone] | | | | | | Fax: | Fax: | | | | | | [phone] | [phone] | +--------+--------+ + + + + Encounter Details +--------+---------+ + + + | Date | Type | Department | Care Team | Description | +--------+---------+ + + + | 05/18/ | Office | [facility] | Haresh Coronel | Palpitation (Primary | | 2019 | Visit | CARDIOLOGY [address] | MD William [address] | Dx); Chest pain, | | | | [address] [place], | [address] [place] | unspecified type; | | | | [place] [address] | [place] [address] | Tachycardia; SVT | | | | [phone] | [phone] | (supraventricular | | | | | | tachycardia) ([facility]); | | | | | | Tobacco use disorder | +--------+---------+ + + + Social History [...] + + + | Blood Pressure | 96/68 | 05/18/2019 12:58 PM | | | | | PDT | | + + + + + | Pulse | 88 | 05/18/2019 12:58 PM | | | | | PDT | | + + + + + | Temperature | - | - | | + + + + + | Respiratory Rate | 18 | 05/18/2019 12:58 PM | | | | | PDT | | + + + + + | Oxygen Saturation | - | - | | + + + + + | Inhaled Oxygen | - | - | | | Concentration | | | | + + + + + | Weight | 47.4 kg (104 lb 8 | 05/18/2019 12:58 PM | | | | oz) | PDT | | + + + + + | Height | 160 cm (5' 3") | 05/18/2019 12:58 PM | | | | | PDT | | + + + + + | Body Mass Index | 18.51 | 05/18/2019 12:58 PM | | | | | PDT [...] documented as of this encounter Progress Notes Haresh Coronel MD - 05/18/2019 1:30 PM PDTFormatting of this note might be differe nt from the original. PATIENT NAME: Renny Saravia : 2000: AGE: 19 y.o. REFERRED BY: Haresh Coronel PRIMARY CARE: Kurt Campbell DO CARDIOLOGY OFFICE VISIT Date of Service: 05/18/19 HISTORY OF PRESENT ILLNESS: Renny Saravia is a 19 y.o. female with a history of anxiety, tobacco use, palpitati ons and tachycardia. She is being seen today for a follow-up visit. She presents alone to [facility]. Previously she had presented with her mother Concha. Since our initial consultation , patient underwent ambulatory monitoring as detailed below as well as an echocardiogram. S he continues to experience occasional episodes of anxiety, which she believes is associated with sudden bouts of rapid heart rate. She also occasionally experiences with her episodes of palpitations which consist of sudden onset and offset, associated with positional change at times as well as stress. She uses a vaping pen and states that in the past she had been smoking cigarettes. She lilibeth es with her parents who also smoke. Pertinent historical clinical information: She was initially [...] mortem workup apparently was carried out at [facility]; no records are available for review. [...] Father depression Asthma Father Mental illness Father Alcohol abuse [...] Last attempt to quit: 2017 Years since quittin.4 Smokeless tobacco: Current User [...] 4 mg disintegrating tablet as needed. 0 ondansetron (ZOFRAN) 4 mg tablet Take 1 tablet by mouth See Admin Instructions. If naus ea with prep. Stop prep, take 1 tab by mouth,wait 30 min, restart prep may repeat 2 tablet 0 Pyridoxine HCl (VITAMIN B-6) 25 MG tablet Take 25 mg by mouth every 8 hours. 0 traZODone (DESYREL) 50 mg tablet Take [...] the media tab. OBJECTIVE: PHYSICAL EXAM BP 96/68 | Pulse 88 | Resp 18 | Ht 1.6 m (5' 3") | Wt 47.4 kg (104 lb 8 oz) | BMI 18.5 1 kg/m Physical Exam Constitutional: She appears well-developed and well-nourished. She does not appear ill. No distress. Cardiovascular: Normal rate, regular rhythm, S1 normal, S2 normal, normal heart sounds and intact distal pulses. Pulses: Carotid pulses are 2+ on the right side, and 2+ on the left side. Radial pulses are 2+ on the right side, and 2+ on the left side. Dorsalis pedis pulses are 2+ on the right side, and 2+ on the left side. Pulmonary/Chest: Effort normal and breath sounds normal. Musculoskeletal: She exhibits no edema. Vitals reviewed. ECG: Reviewed by me notable for normal sinus [...] rhythm duri ng symptoms. Manny Saldaña MD Cardiovascular diagnostic testing interpreted and reviewed by me with the patient today: 4 week event monitor March 2019 shows [...] denies ass ociated severe lightheadedness or syncope. Her recent ambulatory monitor was notable for [...] smart phone technology - use of the [employer] sujatha -s o that the patient may possibly assist in diagnosis of her dysrhythmia if ambulatory monitor ing fails to further elucidate this. Patient's echocardiogram was normal. In the meanwhile of encouraged her to indulge in good hydration and stress management. 2. Tobacco cessation -this was discussed at length with the patient today (> 5 minutes) - I have advised the patient to switch to vaping nicotine free products if possible. PLAN: 1. No further cardiovascular diagnostics. 2. Tobacco cessation. 3. Improved activity level, hydration, and stress management. 4. No empiric medical therapy at this point. 5. Follow-up visit in 6 months or sooner if indicated. No other Portions of this report were transcribed using voice recognition software. Every effort wa s made to ensure accuracy; however, inadvertent computerized industrial security analyst errors may be pre sent. Electronically signed by: Keri Coronel MD PhD FACC 05/18/2019 documented in t his encounter Plan of Treatment +--------+ + + + + | Date | Type | Specialty | Care Team | Description | +--------+ + + + + | 09/07/ | Office | Cardiology | Tawana Mcdonald | | | 2019 | Visit | | [address] | | | | | | [address] [facility] | | | | | | [place] [address] | | | | | | [phone] | | | | | | | | +--------+ + + + + | 09/22/ | Office | Physical Medicine | Gonzalo Merchant, | | | 2019 | Visit | and Rehabilitation | [address] | | | | | | [place] | | | | | | [id number] | | | | | | | | +--------+ + + + + | 09/29/ | Virtual | Pain Medicine | Peggy Arreola | | | 2019 | Office | | [address] | | | | Visit | | [place] | | | | | | [place], | | | | | | [place] [address] | | | | | | [phone] | | | | | | | | +--------+ + + + + | 01/24/ | Office | Family Medicine | Kurt Campbell, | | | 2020 | Visit | | DO [address] | | | | | | [place] | | | | | | [id number] | | | | | | | | +--------+ + + + + documented as of this encounter Visit Diagnoses + + | Diagnosis | + + | Palpitation - Primary Palpitations | + + | Chest pain, unspecified type | + + | Tachycardia Tachycardia, unspecified | + + | SVT (supraventricular tachycardia) (HCC) Other specified cardiac dysrhythmias | + + | Tobacco use disorder | + + documented in this encounter
--- OUTSIDE RECORDS SUMMARY | ~2020-09-05 | XMS | Encounter Summary ---
Demographics + + + | Address | [address] | | | [place] [address] | + + + | Home Phone [...] | | | | | [place] [address] | | + + + + + | Concha Zeeshanletty | ECON | [address] | | | | | [place] [address] | | + + + + + Care Team Providers + +------+ + | Care Client Development Director Name | Role | Phone | + +------+ + | Chance Easley MD | PCP | | + +------+ + Reason for Referral Physical Medicine (Routine) +--------+ + + + + + | Status | Reason | Specialty | Diagnoses / | Referred By | Referred To | | | | | Procedures | Contact | Contact | +--------+ + + + + + | Closed | Specialty | Physical | Diagnoses | Merchant, | | | | Services | Therapy | Adolescent | Gonzalo Weir MD | | | | Required | | idiopathic | [address] | | | | | | scoliosis of | [address] | | | | | | | [place], | | | | | | thoracolumb[place] | [place] [address] | | | | | | r region | Phone: | | | | | | Thoracalgia | [phone] | | | | | | Lumbalgia | Fax: | | | | | | | [phone] | | +--------+ + + + + + Reason for Visit + + + | Reason | Comments | + + + | Back Pain | upper/low | + + + | Numbness | bilateral legs/ bilateral arms | + + + Evaluate & Treat (Routine) +--------+--------+ + + + + | Status | Reason | Specialty | Diagnoses / | Referred By | Referred To | | | | | Procedures | Contact | Contact | +--------+--------+ + + + + | Closed | | Physical | Diagnoses | Kaushal, | Gonzalo Merchant | | | | Medicine and | Low back | Chance Juares MD | Raul Weir MD [address] | | | | Rehabilitatio | pain | [address] | | | | n | | [address] | [place], | | | | | | [place], | [place] [address] | | | | | | [place] [address] | Phone: | | | | | | Phone: | [phone] | | | | | | [phone] | Fax: | | | | | | Fax: | [phone] | | | | | | [phone] | | +--------+--------+ + + + + Encounter Details +--------+---------+ + + + | Date | Type | Department | Care Team | Description | +--------+---------+ + + + | 03/09/ | Office | [facility] PHYSICAL | Gonzalo Merchant, | Adolescent | | 2012 | Visit | MEDICINE | MD [address] | idiopathic scoliosis | | | | REHABILITATION [address] | [place] | of thoracolumbar | | | | [address] | [address] | region (Primary Dx); | | | | [place] | | Thoracalgia; | | | | [address] | | Lumbalgia | | | | [phone] | | | +--------+---------+ + + + [...] + | Blood Pressure | 108/70 | 03/09/2013 1:18 PM | | | | | PDT | | + + + + + | Pulse | 84 | 03/09/2013 1:18 PM | | | | | PDT | | + + + + + | Temperature | - | - | | + + + + + | Respiratory Rate | 12 | 03/09/2013 1:18 PM | | | | | PDT | | + + + + + | Oxygen Saturation | - | - | | + + + + + | Inhaled Oxygen | - | - | | | Concentration | | | | + + + + + | Weight | 49.3 kg (108 lb 9.6 | 03/09/2013 1:18 PM | | | | oz) | PDT | | + + + + + | Height | 157.5 cm (5' 2") | 03/09/2013 1:18 PM | | | | | PDT | | + + + + + | Body Mass Index | 19.86 | 03/09/2013 1:18 PM | | | | | PDT | | + + + + + documented in this encounter Patient Instructions Patient Instructions Gonzalo Merchant MD - 03/09/2013 2:00 PM PDTPhysical therapy has been prescribed. Please participate in physical therapy. If you have not be contacted for an a ppointment with physical therapy within one week, please contact the clinic. Once you have completed physical therapy please continue the home exercise program as outline by physical therapy, indefinitely. X-rays have been requested. Please go to the x-ray department a few hours prior to your psychiatric hospital appointment to complete these x-rays. The results of your x-rays will be reviewed at you r next appointment. documented in this encounter Progress Notes Gonzalo Merchant MD - 03/09/2013 2:06 PM PDTThis office note has been dictated. Job ID# [id number] signed by Gonzalo Merchant MD at 03/09/2013 3:23 PM PDTSravanthi Rankin RN - 03/09/2013 1:28 PM PDTUpper back/low back x 5 months. Bilateral LE/UE numbness x 2 months. onzalo Merchant MD - 03/09/2013 12:00 AM PDT PHYSICAL MEDICINE AND REHAB [facility] [place] [address] FAX: [phone] OFFICE VISIT PHYSICAL MEDICINE REHABILITATION CONSULT CONSULT REQUESTED BY: Chance Easley MD and Ming Gandara MD DATE OF SERVICE: 03/09/2013 PATIENT IDENTIFICATION: A 13-year-old female with scoliosis discovered on x-ray with repor kira mid and low back pain. HISTORY OF PRESENT ILLNESS: Ms. Oliver indicates that she was first found to have scolio sis of the spine when having x-rays for stomach issues. She has had some complaints of stom ach pain. They have been working up her stomach pain. Abdominal x-rays revealed some scolio tic curvature. Subsequent followup x-rays demonstrated her scoliosis. Since the discovery o f scoliosis she has been reporting mid back pain and low back pain. Family reports that she has been using her scoliosis and pain as a reason not to go to school. Apparently her atte ndance at school was hit and miss even prior to diagnosing her scoliosis. Ms. Oliver ind icates that her current pain level is a 3/10 on a numerical pain scale. She states the pain is constant in timing, dull in quality. She is unaware of any specific thing that exacerba piero her pain. She states that her pain is reduced by lying down and staying in bed. She den ies any pain radiating from the neck into the arm. She denies any pain radiating from the b ack into the legs. She denies any numbness, paresthesia or weakness in the 4 extremities at this time. She does report a feeling as if her hips are uneven. She indicates that she fin ds herself posturing her back curving to one side when she sits. Mother and grandmother are concerned about the high heeled shoes that she wears. They are concerned about her lapsed attendance in school. She was having school attendance issues for sometime now. ALLERGIES: 1. ROCHE FLAVORING. 2,. NYSTATIN. 3. OMEPRAZOLE. 4. PENICILLIN. 5. SULFA ANTIBIOTICS. 6. ASPIRIN. PAST MEDICAL HISTORY: Ms. Oliver does not have any diagnosed medical conditions. She sanchez s have stomach upset, dyspepsia which is currently being worked up. PAST SURGICAL HISTORY: Ms. Oliver has not had any surgeries in the past. FAMILY MEDICAL HISTORY: Father at age 41 from colorectal cancer. Mother is aliv e at age 52 with history of emphysema. Diabetes runs in the family. SOCIAL MEDICAL HISTORY: Ms. Oliver is in 8th grade. She has been having school attendanc e issues. Growing up she had a normal and growth pattern. She met her developmental milestones early. Through her juvenile years she was doing well in school. Recently, within the last few years, she has had some attendance issues. She does not smoke, use drugs or d rink alcohol. REVIEW OF SYSTEMS Ms. Oliver denies nausea, vomiting, diarrhea, constipation, fever, chills, shortness of breath, chest pain, skin breakdown, rash, incontinence of bowel or bladder, saddle anesthes ia, lymph gland swelling, or unexplained weight loss. All other review of systems negative. PHYSICAL EXAMINATION VITAL SIGNS: Heart rate 84, respiratory rate 12, blood pressure 108/70, weight 108 pounds, height 5 foot 2 inches. GENERAL: In no acute distress. Alert and oriented to person, place, time and situation, diana ng down on the exam table upon me entering the room. Sat on the edge of the exam table thro ughout history and exam. Did demonstrate asymmetric posturing of her back and spine as she sat on the exam table throughout the history and exam. HEENT: Extraocular muscles intact. Pupils equally reactive to light and accommodation. Scle jimmie clear. NECK: Normal range of motion. Axial loading test negative. Spurling's test negative. There is slight asymmetry with right shoulder sitting slightly superior to that of left shoulder approximately half an inch. HEART: Regular rate and rhythm. No murmurs, no gallops. LUNGS: Clear to auscultation bilaterally. No wheezing, no crackles. ABDOMEN: Nontender, no ndistended. Positive for bowel sounds. BACK: Is slightly asymmetric. There is S-shaped scol iosis of the spine. There is also some rotational scoliosis. Thoracic rib cage on the right is slightly posterior to that of the left. There is asymmetry between the superior iliac c rest bilaterally. Right superior iliac crest sits approximately half an inch to an inch hig her than that of the left. EXTREMITIES: Exam reveals no clubbing, cyanosis or edema in all 4 extremities. With her lying on the exam table, pressure was applied at both ankles, exten ding them from the back. With pelvis in proper alignment, there did not appear to be any si gnificant leg length discrepancy. Leg length was within half an inch of each other, slightl y less, probably closer to 1/4 inch in leg length discrepancy which is well within normal r [place]. Kanu's test was negative bilaterally. Seated straight leg raise test negative. NE UROLOGICAL: Exam demonstrates normal strength in major muscle groups of all 4 extremities. Intact sensation in all 4 extremities. Normal reflexes in all 4 extremities. Coordination i ntact. Gait normal. DATABASE: X-rays from November 05, 2012, imaging personally reviewed by me. This imaging d emonstrates thoracolumbar scoliosis with a curvature of approximately 15 degrees. IMPRESSION 1. ADOLESCENT IDIOPATHIC SCOLIOSIS OF THE THORACOLUMBAR SPINE- 15 DEGREES ON 11/05/2012, D-9 737.30. 2. THORACALGIA, ICD-9 786.50. 3. LUMBALGIA, ICD-9 724.2. PLAN: Ms. Oliver's most recent x-rays demonstrate a scoliosis of less than 20 degrees. Treatment for her scoliotic curvature in the adolescent stage generally requires rehabilitat gerber program and observation at less than 20 degrees. For those individuals that progress to the range of 20-40 degrees of scoliosis bracing is recommended. Bracing is worn 23 hours a day until spinal growth is completed. Once again, her current curvature is less than 20 de grees, bracing is not recommended at this point. With that said, it would be important for us to continue monitoring her scoliosis. She is only 4 months out from the last x-ray and I anticipate repeating x-ray in [address] will have a x-ray 6 months from her l ast x- ray. If scoliosis is progressive and she is at 20 degrees or greater, will recommend a TLSO bracing at that point. If her scoliosis remains stable, we will continue to observe and monitor every 6 months to begin with and then maybe potentially once per year if she c ontinues to be nonprogressive. As an adolescent with idiopathic scoliosis she does have hig h risk for progression of her scoliosis. In that vein, in order to potentially reduce risk of scoliosis, therapy program is recommen ded. Therapy goals would be to strengthen the left upper extremity, do core stabilization e xercises, work on postural improvement, all with the hopes of improving and reducing her sc oliosis. With Ms. Oliver I would monitor her closely. I do have some concerns about her pain com plaints. I think that there is potential that there may be some secondary gain issues at [facility]. She has been reporting pain preventing her from participating in school. Simply telling her parents that her back hurts too much for her to go to school. She and her family is in formed today that her scoliosis should not prevent her from participating in didactic activ ities and that her mid and low back pain should not prevent her from going to school at any point at this time. Greater than 45 minutes was spent [id number] today with Ms. Oliver, over half of which was spent formulating and discussing her medical treatment plan. Thank you for allowing me to be involved in the care of your patient. If you have any quest ions regarding the care of Ms. Oliver please do not hesitate to call. Gonzalo Merchant Jr, MD GEM / PAP JOB #: [id number] cc: MD Ming Gordon MD documented in this encounter Miscellaneous Notes Miscellaneous - ONBASE SCAN [facility] - 03/09/2013 12:00 AM PDT iscellaneous - ONBASE SCAN [facility] - 03/04/2013 12:00 AM PDTEle ctronically signed by Ifeoma Jones at 03/27/2013 11:43 AM PDTdocumented in this encounter Plan of [...] [address] | | | | | | [place] [address] | | | | | | [phone] | | | | | | | | +--------+ + + + + | 09/22/ | Office | Physical Medicine | Gonzalo Merchant, | | | 2019 | Visit | and Rehabilitation | [address] | | | | | | [place] | | | | | | [address] | | | | | | | | +--------+ + + + + | 09/29/ | Virtual | Pain Medicine | Peggy Arreola | | 2019 | Office | | [address] | | | | Visit | | [place] | | | | | | [place] | | | | | | [place] [address] | | | | | | [phone] | | | | | | | | +--------+ + + + + | 01/24/ | Office | Family Medicine | Kurt Campbell, | | | 2020 | Visit | | [address] | | | | | | [place] | | | | | | [address] | | | | | | | | +--------+ + + + + + + +--------+ + + | Name | Type | Priori | Associated Diagnoses | Order Schedule | | | | ty | | | + + +--------+ + + | Ambulatory referral | Outpatient | Routin | Adolescent | Ordered: 03/09/2013 | | to Physical Therapy | Referral | e | idiopathic scoliosis | | | | | | of thoracolumbar | | | | | | region Thoracalgia | | | | | | Lumbalgia | | + + +--------+ + + documented as of this encounter Results XR Scoliosis Standing (06/22/2013 4:27 PM PDT) + + | Specimen | + + | | + + + + + | Narrative | Performed At | + + + | [facility] | [place] | | Department [address] [place] [address] | [facility] | | [ rep ct [address]] [ rep ct [facility] | | st zip] Signed | - IMAGING | | | | | Patient Name: RENNY OLIVER | | | Physician: CLOTILDE : 2000 Age: 13 Sex: F Unit | | | #: [id number] Exam Date: 06/22/13 Location: | | | [facility] Report #: [id number] Page: | | | %(RAD)RES..mtdd.print.filter("pg") of %(RAD) | | | RES..mtdd.print.filter("tpg") | | | | | | Accession Number: [id number] | | | SINGLE VIEW SCOLIOSIS STUDY, 06/22/2013 CLINICAL HISTORY: | | | IDIOPATHIC THORACOLUMBAR SCOLIOSIS. COMPARISON: None | | | available. FINDINGS: A single AP upright view of the | | | thoracolumbar spine is provided. There is s-shaped thoracolumbar | | | scoliosis. Approximately 8 degrees of dextroscoliosis is centered at | | | T8-9, and approximately 18 degrees of levoscoliosis is centered at | | | L2. Vertebral height appears grossly maintained, and no convincing | | | vertebral anomaly is visible on the AP image provided. Imaged thoracic | | | cage and intrathoracic and intraabdominal structures are | | | unremarkable. IMPRESSION: 1. S-SHAPED THORACOLUMBAR | | | SCOLIOSIS DESCRIBED. Dictated Date/Time: 06/22/2013 | | | 16:27 Transcribed Date/Time: 06/22/2013 20:25 | | | Die Fitter: <<Signature on File>> | | | | | | Oz Cedillo [id number] <Electronically signed by Oz Delong | | | [place] MARCUS> Oz Cedillo MD 06/22/13 888 | | | Die Fitter: [employer] [id number] | | | Gonzalo Merchant Jr, MD | | + + + + + + + + | Performing | Address | City/State/Zipcode | Phone Number | | Organization | | | | + + + + + | [facility] | [address] | [place] | [phone] | | [facility] | | [address] | | | - IMAGING | | | | + + + + + documented in this encounter Visit Diagnoses + + | Diagnosis | + + | Adolescent idiopathic scoliosis of thoracolumbar region - Primary Scoliosis (and | | kyphoscoliosis), idiopathic | + + | Thoracalgia Chest pain, unspecified | + + | Lumbalgia Lumbago | + + documented in this encounter
--- OUTSIDE RECORDS SUMMARY | ~2020-09-05 | XMS | Encounter Summary ---
Demographics + + + | Address | [address] | | | [place] [address] | + + + | Home Phone [...] | | | | | [place] [address] | | + + + + + | Concha Paulino | ECON | [address] | | | | | [place] [address] | | + + + + + Care Team Providers + +------+ + | Care District Plant Engineer Name | Role | Phone | + +------+ + | No, Physician | PCP | Unavailable | + +------+ + Encounter Details +--------+ + + + + | Date | Type | Department | Care Team | Description | +--------+ + + + + | 10/04/ | Hospital | [facility] | Tomeka Gomez | | | 2017 | Encounter | MED CTR OB | Fatimah Peralta DO | | | | | PROCEDURES [address] | | | | | [place], | [place], [place] | | | | | [place] [address] | [id number] | | | | | [phone] | | | +--------+ + + + [...] | | | | | [place] [address] | | | | | | [phone] | | | | | | | | +--------+ + + + + | 09/22/ | Office | Physical Medicine | Gonzalo Merchant, | | | 2019 | Visit | and Rehabilitation | MD [address] | | | | | | [place] | | | | | | [id number] | | | | | | | | +--------+ + + + + | 09/29/ | Virtual | Pain Medicine | Peggy Arreola | | | 2019 | Office | | [address] | | | | Visit | | [address] | | | | | | [place], | | | | | | [place] [address] | | | | | | [phone] | | | | | | | | +--------+ + + + + | 01/24/ | Office | Family Medicine | Kurt Campbell, | | | 2020 | Visit | | DO [address] | | | | | | [place] | | | | | | [id number] | | | | | | | | +--------+ + + + + documented as of this encounter Visit Diagnoses Not on filedocumented in this encounter"
--- OUTSIDE RECORDS SUMMARY | ~2020-09-05 | XMS | Encounter Summary ---
Demographics + + + | Address | [address] | | | [place] [address] | + + + | Home Phone | | + + + | Preferred Language | Unknown | + + + | Marital Status | Single | + + + | Gnosticism Affiliation | 1059 | + + + | Race | Unknown | + + + | Ethnic Group | Not or | + + + Author + + + | Author | [facility] | | | and [place] | + + + | Organization | [facility] | | | [...] | | | | | [place] [address] | | + + + + + | Concha Paulino | ECON | [address] | | | | | [place] [address] | | + + + + + Care Team Providers + +------+ + | Care Incendiary Powder Mixer Name | Role | Phone | + +------+ + PCP | Unavailable | + +------+ + Encounter Details +--------+ + + + + | Date | Type | Department | Care Team | Description | +--------+ + + + + | 07/31/ | Hospital | [facility] | Anisa Hobson | | | 2007 | Encounter | MED CTR EMERGENCY | MD [address] | | | | | [place] [address] | [facility], | | | | | [place], [place] | [place] [address] | | | | | [address] | [phone] | | | | | [phone] | | | +--------+ + + + [...] | | | | | [place] [address] | | | | | | [phone] | | | | | | | | +--------+ + + + + | 09/22/ | Office | Physical Medicine | Gonzalo Merchant, | | | 2019 | Visit | and Rehabilitation | [address] | | | | | | [place] | | | | | | [address] | | | | | | | | +--------+ + + + + | 09/29/ | Virtual | Pain Medicine | Peggy Arreola | | | 2019 | Office | | [address] | | | | Visit | | [address] [address] | | | | | | [place] | | | | | | [place] [address] | | | | | | [phone] | | | | | | | | +--------+ + + + + | 01/24/ | Office | Family Medicine | Kurt Campbell, | | | 2020 | Visit | | DO [address] | | | | | | [place] | | | | | | [phone] | | | | | | | | +--------+ + + + + documented as of this encounter Visit Diagnoses Not on filedocumented in this encounter"
--- OUTSIDE RECORDS SUMMARY | ~2020-09-05 | XMS | Encounter Summary ---
Demographics + + + | Address | [address] | | | [place] [address] | + + + | Home Phone | | + + + | Preferred Language | Unknown | + + + | Marital Status | Single | + + + | Hoahaoism Affiliation | 1059 | + + + [...] | | | | | [place] [address] | | + + + + + | Concha Paulino | ECON | [address] | | | | | [place] [address] | | + + + + + Care Team Providers + +------+ + | Care Machine Captain Name | Role | Phone | + +------+ + | Kurt Campbell DO | PCP | | + +------+ + Reason for Visit + +--------+ + | Reason | Onset | Comments | | | Date | | + +--------+ + | ED Follow-up | 01/22/ | | | | 2019 | | + +--------+ + Encounter Details +--------+ + + + + | Date | Type | Department | Care Team | Description | +--------+ + + + + | 01/22/ | Telephone | [facility] | Kurt Campbell, | ED Follow-up | | 2019 | | MEDICINE [address] | DO [address] | | | | | [address] [place], | [place] | | | | | [place] [address] | [phone] | | | | | [phone] | | | +--------+ + + + [...] this encounter Miscellaneous Notes Telephone Encounter - Chandni Smith RN - 01/22/2020 6:54 PM PST [facility] ED follow up call Admission Date: 01/17/20 Discharge Date: 01/17/20 Discharge Disposition: Home or Self Care Principle Discharge Diagnosis: FINAL IMPRESSION 1. Pyelonephritis Acute If unable to reach letter sent (if appropriate): Mychart Any medications ordered this visit: YES New Prescriptions CEFDINIR (OMNICEF) 300 MG CAPSULE Take 1 capsule by mouth 2 times daily. CYCLOBENZAPRINE (FLEXERIL) 10 MG TABLET Take 1 tablet by mouth 3 times daily as neede d for Muscle spasms. ONDANSETRON (ZOFRAN ODT) 4 MG DISINTEGRATING TABLET Take 1 tablet by mouth every 6 ho urs as needed for Nausea. Specialty referral: No Referral in place: No Has this patient been seen in the ED 5 or more times in the last 6 months: NO Need case management to prevent more ED visits: NO Follow up needed: As needed Future Appts: Future Appointments Date Time Provider Department [place] 03/16/2020 10:10 AM Gonzalo Merchant MD [facility] 06/16/2020 11:00 AM Tawana Mcdonald PA-C [facility] Discharge Instructions For severe worsening symptoms, fever flank pain or nausea vomiting. Please follow-up with your primary care physician. Please follow-up with your primary care physician if symptoms worsen. documented in this e ncounter Plan of Treatment +--------+ + + + + | Date | Type | Specialty | Care Team | Description | +--------+ + + + + | 09/07/ | Office | Cardiology | Tawana Mcdonald | | 2019 | Visit | | GLEN Morales [address] | | | | | | [address] | | | | | | [place] [address] | | | | | | [phone] | | | | | | | | +--------+ + + + + | 09/22/ | Office | Physical Medicine | Gonzalo Merchant, | | | 2019 | Visit | and Rehabilitation | MD [address]ane [address] | | | | | | [place] | | | | | | [address] | | | | | | | | +--------+ + + + + | 09/29/ | Virtual | Pain Medicine | Peggy Arreola | | 2019 | Office | | [address] | | | | Visit | | [address] [address] | | | | | | [place] | | | | | | [place] [address] | | | | | | [phone] | | | | | | | | +--------+ + + + + | 01/24/ | Office | Family Medicine | Kurt Campbell, | | | 2020 | Visit | | DO [address]on [address] | | | | | | [place] | | | | | | [address] | | | | | | | | +--------+ + + + + documented as of this encounter Visit Diagnoses Not on filedocumented in this encounter"
--- OUTSIDE RECORDS SUMMARY | ~2020-09-05 | XMS | Encounter Summary ---
Demographics + + + | Address | [address] [facility] [facility] | | | [place] [address] | + + + | Home Phone [...] Author + + + | Author | [facility] | | | and [place] | + + + | Organization | [facility] | | | [...] | | | | | [place] [address] | | + + + + + | Concha Paulino | ECON | [address] | | | | | [place] [address] | | + + + + + Care Team Providers + +------+ + | Care Database Report Writer Name | Role | Phone | + [...] + + + | | | | | | | +--------+--------+ + + + + Encounter Details +--------+ + + + + | Date | Type | Department | Care Team | Description | +--------+ + + + + | 09/23/ | Anesthesia | [facility] | Milton Baeza | | | 2017 | Event | [facility] LAB[facility] AND | MD Janak [address] | | | | | DEL[address] | [address] [address] | | | | | [place], | [place] [address] | | | | | [place] [address] | [phone] | | | | | [phone] | | | +--------+ + + + + Anesthesia Record + + + + + | Procedure Name | Responsible | Anesthesia Start | Anesthesia Stop Time | | | Anesthesiologist | Time | | + + + + + | NEURAXIAL LABOR | Milton Briceno | 09/23/17 1107 | 09/23/17 1357 | | ANALGESIA/ANESTHESIA | MD Felisha | | | + + + + + +----+---+ + + | Da | T | Event | Comment | | te | i | | | | | m | | | | | e | | | +----+---+ + + | 10 | 1 | | | | /3 | 1 | | | | 0/ | 0 | | | | 20 | 7 | | | | 17 | | | | +----+---+ + + | | 1 | An Start | Reassessment prior to anesthesia induction/procedure. | | | 1 | | | | | 0 | | | | | 7 | | | +----+---+ + + | | 1 | Pre-Procedu | | | | 1 | ral Timeout | | | | 0 | Completed | | | | 9 | | | +----+---+ + + | | 1 | Test Dose | | | | 1 | | | | | 1 | | | | | 9 | | | +----+---+ + + | | 1 | Epidural | | | | 1 | Infusion | | | | 2 | Started | | | | 4 | | | +----+---+ + + | | 1 | Epi/spinal | | | | 1 | Stop | | | | 2 | | | | | 5 | | | +----+---+ + + | | 1 | Out of [place] | | | | 1 | Device Stop | | | | 3 | | | | | 9 | | | +----+---+ + + | | 1 | Baby Deliv | | | | 3 | | | | | 5 | | | | | 7 | | | +----+---+ + + | | 1 | An Stop | Patient handed off to recovery nurse. | | | 5 | | | | | 7 | | | +----+---+ + + +------+ | Meds | +------+ + +---------+ | Name | Total | + +---------+ | lidocaine 1.5% + epi 1:200k | 5 mL | | (Epidural) | | + +---------+ | fentaNYL | 100 mcg | + +---------+ | bupivacaine 0.25% (Epidural) | 7 mL | + +---------+ | fentaNYL 2 mcg/mL + bupivacaine | 35.7 mL | | 0.125% in saline (PF) | | + +---------+ + + | No agents on file. | + + + + | No blood administrations on file. | + + +--------+ + + + | Type | Details | Placement | Removal | +--------+ + + + | Periph | 09/23/17; 0350; Left; Distal; | 09/23/17 0350 by | 09/24/172054 by | | monica | Hand; [id number] catheter | Loreta Davidson, | Alexei Head, | | IV | system; 18 gauge; Hematology, | RN | RN | | | Blood Bank; 0; tolerated well, | | | | | appears comfortable; 09/24/17; | | | | | 2055 | | | +--------+ + + + | Epidur | 09/23/17; 1054; no longer | 09/23/17 1054 by | 09/24/17 1500 by | | al/Spi | indicated; Lumbar Epidural, | Milton Briceno | Cindi Arredondo RN | | nal | removed by previous shift; | MD Felisha | | | | 09/24/17; 1500 | | | +--------+ + + + documented in this encounter Social History + +-------+ +--------+------+ | Tobacco [...] +---------+ + + | Blood Pressure | 116/89 | 09/23/2017 11:39 AM | | | | | PDT | | + +---------+ + + | Pulse | - | - | | + +---------+ + + | Temperature | - | - | | + +---------+ + + | Respiratory Rate | - | - | | + +---------+ + + | Oxygen Saturation | 95% | 09/23/2017 11:36 AM | | | | | PDT [...] + + documented as of this encounter [place] Notes Anesthesia Postprocedure Evaluation - Milton Baeza MD - 09/23/2017 7:29 PM PDTFo rmatting of this note might be different from the original. ANESTHESIA POSTANESTHESIA EVALUATION Renny Saravia 17 y.o. female 2000 [id number] Patient doing well s/p vaginal delivery. No anesthesia concerns. Procedure(s) NEURAXIAL LABOR ANALGESIA/ANESTHESIA Cooperates? Yes Mental Status Performs simple tasks. Respiratory Satisfactory - Airway patent (self maintained). Cardiovascular Satisfactory - Blood pressure and heart rate acceptable Temperature Satisfactory Pain Satisfactory N/V Control Satisfactory Hydration Satisfactory - No signs of dehydration Complications None apparent Vitals: 09/23/17 1530 09/23/17 1600 09/23/17 1700 BP: 122/73 123/73 121/74 Pulse: 82 75 86 Temp: 37.1 C (98.8 F) Resp: 16 SpO2: Electronically signed by Milton Baeza MD 09/23/2017 19:29 [facility] a t 09/23/2017 7:29 PM PDTAnesthesia Procedure Notes - Milton Baeza MD - 09/23/2017 11:28 AM PDTAssociated Order(s): ANE EPIDURAL NOTENeuraxial Procedure Note Procedure: epidural catheter placement Provider requested procedure: Dr. Gomez Indication: labor analgesia Preprocedure check: patient identified, procedure and rescue equipment checked, preevaluati on including airway assessment complete, risks/benefits discussed, consent obtained, timeout performed, reassessment prior to procedure and monitors applied Patient position: sitting Preparation: chlorhexidine/isopropyl alcohol, drape, 1% lidocaine infiltration, Local anesthetic infiltration volume: 3 mL Procedure level: L3-4 Approach: midline Needle: Tuohy Needle size: 17 g Needle length: 9 cm Loss of resistance to: saline with air bubble Medication administered through: catheter and incremental injection Negative findings: no blood aspirated, no CSF and no paresthesia Test dose response: negative Attempts: 1 Ease of procedure: easy Dressing: transparent dressing, catheter securement device and tape Performing provider: MILTON BAEZA Assisted by: TASHI BOOTHE Comments: Patient seen on Labor and Delivery, consent obtained and signed. Cap, mask, sterile gloves, and sterile technique used for epidural procedure. Patient positioned in the sitting position with assistance of RN. Landmarks identified, ch loroprep administered to the skin and allowed to dry prior to application of sterile drape. Local anesthetic was administered at the skin. Tuohy needle introduced into the skin until ligament was engaged. Using BARBRA technique, the epidural space was encountered on the first a ttempt. Easy catheter thread. Catheter secured at the skin after confirming negative test dose. Procedure well tolerated by patient, conversant throughout. Family in the room for procedur e. No significant scoliosis on palpation. Please see anesthesia record or flowsheet for vital sign documentation and see anesthesia r ecord or MAR for all medication documentation. Electronically Signed by: Milton Baeza MD ESig date/time: 7 11:28 nesthesia Prep rocedure Evaluation - Felisha, Milton Briceno MD - 09/23/2017 10:54 AM PDT ANESTHESIA PREANESTHESIA EVALUATION Renny Saravia 17 y.o. female 2000 [id number] Procedure(s): NEURAXIAL LABOR ANALGESIA/ANESTHESIA Medical history, anesthesia, medications, allergy, NPO status verified histories reviewed. Labs reviewed. Review of Systems / Med History Anesthesia History No anesthesia complications. (-) PONV, difficult intubation, malignant hyperthermia Cardiovascular Negative except where noted below. , Exercise tolerance >4 METS Pulmonary Negative except where noted below. (+) asthma Neurology Negative except where noted below. (+) headaches, scoliosis Psychology (+) depression Renal Negative except where noted below.@Lab Results Component Value Date CREA 0.46 (L) 04/22/2017 BUN 6 (L) 04/22/2017 NA 140 04/22/2017 K 3.7 04/22/2017 CL 103 04/22/2017 CO2 22 (L) 04/22/2017 . Gastrointestinal/Hepatic Negative except where noted below. Endocrine Negative except where noted below. Obstetrics Term - labor epidural desired. (-) gestational diabetes, pre-eclampsia, eclampsia, gestational hypertension Other @Lab Results Component Value Date WBC 17.2 (H) 09/23/2017 HGB 11.1 (L) 09/23/2017 HCT 32.8 (L) 09/23/2017 MCV 84.9 09/23/2017 PLT 287 09/23/2017 . (+) anemia(-) thrombocytopenia Physical Exam Airway MP II, TM >3 FB, Neck: full ROM, Jaw protrusion normal. Dental Grossly normal except w here noted below.; (+) Age appropriate dentition. CV cardiovascular normal Rhythm regular. Rate normal. Pulm Clear to auscultation bilaterally. Neuro Grossly normal. Anesthesia Plan ASA 2 Type: Epidural (Labor Epidural). Induction: Local anesthesia. Potential problems: None anticipated. Monitors: Standard ASA monitors. Consent statement:Anesthetic plan, alternatives, risks and benefits discussed with patient (significant other present for discussion). Risks discussed included (but were not limited to): backache, drug reaction, nausea, pain ( Discussed risks/benefits of epidural including infection, bleeding, inadequate relief, one-s ided block, and possible nerve damage.), dural tap, post dural puncture headache. Consenting person understands and agrees to proceed. PARQ. All questions answered prior to procedure. . Electronically Signed by: Milton Baeza MD ESig date/time: 09/23/2017 17:40 documented in t his encounter Plan of Treatment +--------+ + + + + | Date | Type | Specialty | Care Team | Description | +--------+ + + + + | 09/07/ | Office | Cardiology | Tawana Mcdonald | | | 2019 | Visit | | GLEN Morales [address] | | | | | | [address] | | | | | | [place] [address] | | | | | | [phone] | | | | | | | | +--------+ + + + + | 09/22/ | Office | Physical Medicine | Gonzalo Merchant, | | | 2019 | Visit | and Rehabilitation | [address] | | | | | | [place] | | | | | | [address] | | | | | | | | +--------+ + + + + | 09/29/ | Virtual | Pain Medicine | Peggy Arreola | | | 2019 | Office | | [address] | | | | Visit | | [place] | | | | | | [place], | | | | | | [place] [address] | | | | | | [phone] | | | | | | | | +--------+ + + + + | 01/24/ | Office | Family Medicine | Kurt Campbell, | | | 2020 | Visit | | DO [address] | | | | | | [place] | | | | | | [address] | | | | | | | | +--------+ + + + + documented as of this encounter Procedures + +--------+ + + + | Procedure Name | Priori | Date/Time | Associated Diagnosis | Comments | | | ty | | | | + +--------+ + + + | ANE EPIDURAL NOTE | Routin | 09/23/2017 | | Results for this | | | e | 11:28 AM | | procedure are in the | | | | PDT | | results section. | + +--------+ + + + documented in this encounter Results Anesthesia Epidural Note (09/23/2017 11:28 AM PDT) + + + | Narrative | Performed At | + + + | Milton Baeza MD 09/23/2017 11:29 Neuraxial Procedure | | | Note Procedure: epidural catheter placement Provider requested | | | procedure: Dr. Gomez Indication: labor analgesia Preprocedure | | | check: patient identified, procedure and rescue equipment checked, | | | preevaluation including airway assessment complete, risks/benefits | | | discussed, consent obtained, timeout performed, reassessment prior | | | to procedure and monitors applied Patient position: sitting | | | Preparation: chlorhexidine/isopropyl alcohol, drape, 1% lidocaine | | | infiltration, Local anesthetic infiltration volume: 3 mL Procedure | | | level: L3-4 Approach: midline Needle: Tuohy Needle size: 17 g | | | Needle length: 9 cm Loss of resistance to: saline with air bubble | | | Medication administered through: catheter and incremental injection | | | Negative findings: no blood aspirated, no CSF and no paresthesia Test | | | dose response: negative Attempts: 1 Ease of procedure: easy | | | Dressing: transparent dressing, catheter securement device and tape | | | Performing provider: MILTON BAEZA Assisted by: TASHI BOOTHE | | | ZAINAB Comments: Patient seen on Labor and Delivery, consent | | | obtained and signed. Cap, mask, sterile gloves, and sterile | | | technique used for epidural procedure. Patient positioned in the | | | sitting position with assistance of RN. Landmarks identified, | | | chloroprep administered to the skin and allowed to dry prior to | | | application of sterile drape. Local anesthetic was administered at | | | the skin. Tuohy needle introduced into the skin until ligament was | | | engaged. Using BARBRA technique, the epidural space was encountered on | | | the first attempt. Easy catheter thread. Catheter secured at the | | | skin after confirming negative test dose. Procedure well | | | tolerated by patient, conversant throughout. Family in the room for | | | procedure. No significant scoliosis on palpation. | | | Please see anesthesia record or flowsheet for vital sign documentation | | | and see anesthesia record or MAR for all medication documentation. | | | Electronically Signed by: Milton Baeza MD | | | ESig date/time: 09/23/2017 11:28 | | + + + + + | Procedure Note | + + | Milton Baeza MD - 09/23/2017 11:28 AM PDT Neuraxial Procedure | | NoteProcedure: epidural catheter placementProvider requested procedure: DrJosé | | MontagninoIndication: labor analgesiaPreprocedure check: patient identified, procedure | | and rescue equipment checked, preevaluation including airway assessment complete, | | risks/benefits discussed, consent obtained, timeout performed, reassessment prior to | | procedure and monitors appliedPatient position: sittingPreparation: | | chlorhexidine/isopropyl alcohol, drape, 1% lidocaine infiltration,Local anesthetic | | infiltration volume: 3 mLProcedure level: L3-4Approach: midlineNeedle: TuohyNeedle size: | | 17 gNeedle length: 9 cmLoss of resistance to: saline with air bubbleMedication | | administered through: catheter and incremental injectionNegative findings: no blood | | aspirated, no CSF and no paresthesiaTest dose response: negativeAttempts: 1Ease of | | procedure: easyDressing: transparent dressing, catheter securement device and | | tapePerforming provider: MILTON BAEZAAssisted by: TASHI BOOTHE | | STANLEYComments: Patient seen on Labor and Delivery, consent obtained and signed. Cap, | | mask, sterile gloves, and sterile technique used for epidural procedure.Patient | | positioned in the sitting position with assistance of RN. Landmarks identified, | | chloroprep administered to the skin and allowed to dry prior to application of sterile | | drape. Local anesthetic was administered at the skin. Tuohy needle introduced into the | | skin until ligament was engaged. Using BARBRA technique, the epidural space was encountered | | on the first attempt.Easy catheter thread. Catheter secured at the skin after | | confirming negative test dose.Procedure well tolerated by patient, conversant | | throughout. Family in the room for procedure.No significant scoliosis on | | palpation.Please see anesthesia record or flowsheet for vital sign documentation and see | | anesthesia record or MAR for all medication documentation. Electronically Signed by: | | Milton Baeza MD ESig date/time: 09/23/2017 11:28 | |Cap, mask, sterile gloves, and sterile technique used for epidural procedure. | | | |Patient positioned in the sitting position with assistance of RN. Landmarks identified, ch loroprep administered to the skin and allowed to dry prior to application of sterile drape. Local anesthetic was | |administered at the skin. Tuohy needle introduced into the skin until ligament was engaged. Using BARBRA technique, the epidural space was encountered on the first attempt. | | | |Easy catheter thread. Catheter secured at the skin after confirming negative test dose. | | | |Procedure well tolerated by patient, conversant throughout. Family in the room for florinda raya. | | | |No significant scoliosis on palpation. | | | | | | | | | |Please see anesthesia record or flowsheet for vital sign documentation and see anesthesia r ecord or RADU for all medication documentation. | | | |Electronically Signed by: MD Javier Dasg date/time: 7 11:28 | + + documented in this encounter Visit Diagnoses Not on filedocumented in this encounter Administered Medications + +--------+ +-------+------+------+ | Medication Order | MAR | Action | Dose | Rate | Site | | | Action | Date | | | | + +--------+ +-------+------+------+ | bupivacaine (PF) (MARCAINE) | Given | 09/23/20 | 4 mLs | | | | 0.25% injection EPIDURAL, PRN, | | 17 11:23 | | | | | Starting 09/23/17 at 1122, | | AM PDT | | | | | Anesthesia Intra-op | | | | | | + +--------+ +-------+------+------+ +-------+ +-------+---+---+ | Given | 09/23/20 | 3 mLs | | | | | 17 11:22 | | | | | | AM PDT | | | | +-------+ +-------+---+---+ +---+---+ | | | +---+---+ + +-------+ +--------+---+---+ | fentaNYL (PF) injection | Given | 09/23/20 | 50 mcg | | | | EPIDURAL, PRN, Pain, Starting Mon | | 17 11:24 | | | | | 09/23/17 at 1124, Anesthesia | | AM PDT | | | | | Intra-op | | | | | | + +-------+ +--------+---+---+ +-------+ +--------+---+---+ | Given | 09/23/20 | 50 mcg | | | | | 17 11:22 | | | | | | AM PDT | | | | +-------+ +--------+---+---+ +---+---+ | | | +---+---+ + +---------+ + + +---+ | fentaNYL 2 mcg/mL + bupivacaine | New Bag | 09/23/20 | 14 mL/hr | 14 mL/hr | | | 0.125% in saline (PF) at 14 | | 17 11:24 | | | | | mL/hr, EPIDURAL, CONTINUOUS, | | AM PDT | | | | | Starting 09/23/17 at 1115, | | | | | | | Post-op/Phase II, | | | | | | | Patient-controlled Bolus Dose | | | | | | | (mL): 5, Lockout Interval (min): | | | | | | | 15 | | | | | | + +---------+ + + +---+ +---+---+ | | | +---+---+ + +-------+ +-------+---+---+ | lidocaine 1.5%-EPINEPHrine | Given | 09/23/20 | 2 mLs | | | | 1:200,000 (PF) injection | | 17 11:21 | | | | | EPIDURAL, PRN, Starting Mon | | AM PDT | | | | | 09/23/17 at 1124, Anesthesia | | | | | | | Intra-op | | | | | | + +-------+ +-------+---+---+ +-------+ +-------+---+---+ | Given | 09/23/20 | 3 mLs | | | | | 17 11:19 | | | | | | AM PDT | | | | +-------+ +-------+---+---+ +---+---+ | | | +---+---+ documented in this encounter"
--- OUTSIDE RECORDS SUMMARY | ~2020-09-05 | XMS | Encounter Summary ---
Demographics + + + | Address | [address] | | | [place] [address] | + + + | Home Phone [...] Author + + + | Author | [facility] | | | and [place] | + + + | Organization | [facility] | | [...] | | | | | [place] [address] | | + + + + + | Concha Paulino | ECON | [address] | | | | | [place] [address] | | + + + + + Care Team Providers + +------+ + | Care Vegetable Washer Name | Role | Phone | + +------+ + | Leonid Osorio MD | PCP | | + +------+ + Reason for Visit +---------+--------+ + | Reason | Onset | Comments | | | Date | | +---------+--------+ + | Testing | 07/03/ | | | | 2015 | | +---------+--------+ + Encounter Details +--------+ + + + + | Date | Type | Department | Care Team | Description | +--------+ + + + + | 07/03/ | Telephone | [facility] | Lee Ann Sanon | Testing | | 2015 | | for Congenital Heart | P, | | | | | Disease [address] | Electrocardiology | | | | | [address] | Tech | | | | | [place], [place] | | | | | | [address] | | | | | | [phone] | | | +--------+ + + + [...] this encounter Miscellaneous Notes Telephone Encounter - Lee Ann Sanon, Electrocardiology Tech - 07/03/2016 2:42 PM PD TMom called very concerned that her daughter received the incorrect monitor from [employer]. I explained due to her Ins, an event monitor is what was sent to them. She was very upset because the last time the monitor couldn't get a cell signal to download. I explained that the monitor would still record the events and then download once they were in cell range. S he will go ahead and try it. I asked mom to please call us and let us know if she continues to have problems and we can have [employer] reach out to them for assistance. Mom agreed wi th the plan. 16 2:47 PM PDTdocumented in this encounter Plan of [...] | | | | | [place] [address] | | | | | | [phone] | | | | | | | | +--------+ + + + + | 09/22/ | Office | Physical Medicine | Gonzalo Merchant, | | | 2019 | Visit | and Rehabilitation | [address] | | | | | | [place] | | | | | | [address] | | | | | | | | +--------+ + + + + | 09/29/ | Virtual | Pain Medicine | Peggy Arreola | | | 2019 | Office | | [address] | | | | Visit | | [place] | | | | | | [address] [place], | | | | | | [place] [address] | | | | | | [phone] | | | | | | | | +--------+ + + + + | 01/24/ | Office | Family Medicine | Kurt Campbell, | | | 2020 | Visit | | [address] | | | | | | [place] | | | | | | [address] | | | | | | | | +--------+ + + + + documented as of this encounter Visit Diagnoses Not on filedocumented in this encounter"
--- OUTSIDE RECORDS SUMMARY | ~2020-09-05 | XMS | Encounter Summary ---
Demographics + + + | Address | [address] | | | [place] [address] | + + + | Home Phone | | + + + | Preferred Language | Unknown | + + + | Marital Status | Single | + + + | Latter Day Affiliation | 1059 | + + + | Race | Unknown | + + + | Ethnic Group | Not or | + + + Author + + + | Author | [facility] | | | and [place] | + + + | Organization | [facility] | | | and [...] | | | | | [place] [address] | | + + + + + | Concha Paulino | ECON | [address] | | | | | [place] [address] | | + + + + + Care Team Providers + +------+ + | Care Otolaryngologist Name | Role | Phone | + +------+ + | Leonid Osorio MD | PCP | | + +------+ + Encounter Details +--------+ + + + + | Date | Type | Department | Care Team | Description | +--------+ + + + + | 08/10/ | Documentati | [facility] | Lee Ann Sanon | | | 2014 | on | for Congenital Heart | P, | | | | | Disease [address] | Electrocardiology | | | | | [address] | Tech | | | | | [place] | | | | | | [address] | | | | | | [phone] | | | +--------+ + + + [...] documented as of this encounter Progress Notes Lee Ann Sanon, Electrocardiology Tech - 09/12/2015 1:24 PM PDTFinal Spectocor event monitor report.Electronically signed by Lee Ann Sanon Electrocardiology Tech at 08/25 1:24 PM PDTdocumented in this encounter Procedure Manny Mckeon MD - 09/12/2015 1:22 PM PDTAssociated Order(s): EVENT MONITOR 4 WEEKProcedure(s): EVENT MONITOR 4 WEEKPre-Procedure Diagnose(s): Tgeyuykhryv78/20/2015 Leonid Osorio MD Renny Saravia ( 2000) , underwent ambulatory event monitoring beginning on 0 08/10/2015. Findings are detailed below. 1. The patient wore a Spectocor monitor. 2. Number of recorded symptomatic events: 5. 3. Symptoms during recordings: shortness of breath, palpitations and chest discomfort. 4. Activities during recordings: not specified. 5. Heart rate range: HR min: 50. HR mean: 81. HR max: 158. 6. Rhythm data: sinus rhythm and mild sinus tachycardia during symptoms. Recorded ectopy includes no significant ectopy. 7. Duration of monitorin days. IMPRESSION: Normal event monitor documenting normal heart rhythm during symptoms. RECOMMENDATIONS: 1. Follow-up as scheduled with Dr. Hinson on 09/21/2015. Manny Saldaña MD [facility] Congenital Heart Disease Pediatric Cardiology documente d [...] | | | | | [place] [address] | | | | | | [phone] | | | | | | | | +--------+ + + + + | 09/22/ | Office | Physical Medicine | Gonzalo Merchant, | | | 2019 | Visit | and Rehabilitation | [address] | | | | | | [place] | | | | | | [address] | | | | | | | | +--------+ + + + + | 09/29/ | Virtual | Pain Medicine | Peggy Arreola | | | 2019 | Office | | [address] | | | | Visit | | [place] | | | | | | [place], | | | | | | [place] [address] | | | | | | [phone] | | | | | | | | +--------+ + + + + | 01/24/ | Office | Family Medicine | Kurt Campbell, | | | 2020 | Visit | | [address] | | | | | | [place] | | | | | | [address] | | | | | | | | +--------+ + + + + documented as of this encounter Procedures + +--------+ + + + | Procedure Name | Priori | Date/Time | Associated Diagnosis | Comments | | | ty | | | | + +--------+ + + + | EVENT MONITOR 4 WEEK | Routin | 09/13/2015 | Tachycardia | Results for this | | | e | 10:47 AM | | procedure are in the | | | | PDT | | results section. | + +--------+ + + + documented in this encounter Results EVENT MONITOR 4 WEEK (09/13/2015 10:47 AM PDT) + + + | Narrative | Performed At | + + + | Manny | | | Reg Saldaña MD 09/13/2015 10:4709/13/2015 Leonid Soto | | | MD Jo Renny Saravia ( 2000) , underwent ambulatory | | | event monitoring beginning on 08/10/2015. Findings are detailed | | | below. 1. The patient wore a Spectocor monitor.2. Number of | | | recorded symptomatic events: 5.3. Symptoms during recordings: | | | shortness of breath, palpitations and chest discomfort.4. Activities | | | during recordings: not specified.5. Heart rate range: HR min: 50. | | | HR mean: 81. HR max: 158.6. Rhythm data: sinus rhythm and mild | | | sinus tachycardia during symptoms. Recorded ectopy includes no | | | significant ectopy.7. Duration of monitorin days. IMPRESSION: | | | Normal event monitor documenting normal heart rhythm during | | | symptoms. RECOMMENDATIONS: 1. Follow-up as scheduled with Dr. Hinson | | | on 09/21/2015. Manny Saldaña, [facility] | | | Congenital Heart DiseasePediatric Cardiology | | |5. Heart rate range: HR min: 50. HR mean: 81. HR max: 158. | | |6. Rhythm data: sinus rhythm and mild sinus tachycardia during | | |symptoms. Recorded ectopy includes no significant ectopy. | | |7. Duration of monitorin days. | | | | | |IMPRESSION: | | |Normal event monitor documenting normal heart rhythm during | | |symptoms. | | | | | | | | |RECOMMENDATIONS: | | |1. Follow-up as scheduled with Dr. Hinson on 09/21/2015. | | | | | | | | | | | |Manny Saldaña MD | | |[facility]ital [facility] | | |Pediatric Cardiology | | | | | | | | + + + documented in this encounter Visit Diagnoses + + | Diagnosis | + + | Tachycardia Tachycardia, unspecified | + + documented in this encounter"
--- OUTSIDE RECORDS SUMMARY | ~2020-09-05 | XMS | Encounter Summary ---
Demographics + + + | Address | [address] [facility] [address] | | | [place] [address] | + + + | Home Phone | | + + + | Preferred Language | Unknown | + + + | Marital Status | Single | + + + | Zoroastrianism Affiliation | 1059 | + + + | Race | Unknown | + + + | Ethnic Group | Not or | + + + Author + + + | Author | [facility] | | | and [place] | + + + | Organization | [facility] | | | [...] | | | | | [place] [address] | | + + + + + | Concha Paulino | ECON | [address] | | | | | [place] [address] | | + + + + + Care Team Providers + +------+ + | Care Real Estate Valuer Name | Role | Phone | + [...] Description | +--------+---------+ + + + | 08/13/ | Office | [facility] | Kurt Campbell, | Gastritis, presence | | 2019 | Visit | [facility] [place] | DO [address] | of bleeding | | | | [address] | [place] | unspecified, | | | | [place] | [address] | unspecified | | | | [address] | | chronicity, | | | | [phone] | | unspecified | | | | | | gastritis type | | | | | | (Primary Dx); Stress | +--------+---------+ + + + Social History [...] + + + | Blood Pressure | 102/64 | 08/13/2019 7:44 AM | | | | | PDT | | + + + + + | Pulse | 99 | 08/13/2019 7:44 AM | | | | | PDT | | + + + + + | Temperature | 37 C (98.6 F) | 08/13/2019 7:44 AM | | | | | PDT | | + + + + + | Respiratory Rate | 16 | 08/13/2019 7:44 AM | | | | | PDT | | + + + + + | Oxygen Saturation | 100% | 08/13/2019 7:44 AM | | | | | PDT | | + + + + + | Inhaled Oxygen | - | - | | | Concentration | | | | + + + + + | Weight | 49.8 kg (109 lb 12.6 | 08/13/2019 7:44 AM | | | | oz) | PDT | | + + + + + | Height | 160 cm (5' 3") | 08/13/2019 7:44 AM | | | | | PDT | | + + + + + | Body Mass Index | 19.45 | 08/13/2019 7:44 AM | | | | | PDT [...] of this encounter Patient Instructions Patient Instructions Lindsey Chamberlain, Bucket Wash Operator - 08/13/2019 7:45 AM PDT Epigastric Pain (Uncertain Cause) Epigastric pain is pain in the upper abdomen. It can be a sign of disease. Common causes in clude: Acid reflux (stomach acid flowing up into the esophagus) Gastritis (irritation of the stomach lining) Most often this is from aspirin or NSAID me dicines such as ibuprofen, bacteria called H. pylori, or frequent alcohol use. Peptic ulcer disease Inflammation of the pancreas Gallstone Infection in the gallbladder Pain may be dull or burning. It may spread upward to the chest or to the back. There may be other symptoms such as belching, bloating, cramps or hunger pains. There may be weight loss or poor appetite, nausea or vomiting. Since the cause of your pain is not certain yet,you may need more tests. Sometimes the doct or will treat you for the most likely condition to see if there is improvement before doing more tests. Home care Medicines Antacids help neutralize the normal acids in your stomach.If you don t like the liquid , you can try a chewable one. You may find one works better than another for you. Overuse ca n cause diarrhea or constipation. Acid blockers (H2 blockers) decrease acid production. Examples are cimetidine, famotidin e, and ranitidine. Acid inhibitors (PPIs) decrease acid production in a different way than the blockers. Yo u may find they work better, but can take a little longer to take effect. Examples are ome prazole, lansoprazole, pantoprazole, rabeprazole, and esomeprazole. Many of these are availa ble [id number] or available as generics. Take an antacid 30 to 60minutes after eating and at bedtime, but not at the same time as an acid radha. Try not to take NSAIDs such as ibuprofen. Aspirin may also cause problems, but if taking it for your heart or other medical reasons, talk to your doctor before stopping it; you don 't want to cause a worse problem, like a heart attack or stroke. Diet If certain foods seem to cause your pain, try not to eat them. Certain foods can worsen symptoms of gastritis. Limit or avoid fatty, fried, and spicy foods, as well as coffee, luis eduardo olate, mint, and foods with high acid content such as tomatoes and citrus fruit and juices ( orange, grapefruit, lemon). Eat slowly and chew food well before swallowing. Symptoms of gastritis can be worsened b y certain foods. Don't drink alcohol. It can irritate the stomach. Don't consume caffeine, or use tobacco. These can delay healingand worsen your problem . Try eating smaller meals with snacks in between. Keep an empty stomach for 2 to 3 hours before lying down. Prop the head of the bed up if you have overnight symptoms. This helps acid clear from y our esophagus. Follow-up care Follow up with your healthcare provider or as advised. When to seek medical advice Call your healthcare provider right away if any of the following occur: Stomach pain worsens or moves to the right lower part of the abdomen Chest pain appears, or if it worsens or spreads to the chest, back, neck, shoulder, or a rm Frequent vomiting (can t keep down liquids) Blood in the stool or vomit (red or black color) Feeling weak or dizzy, fainting, or having trouble breathing Fever of 100.4F (38C) or higher, or as directed by your healthcare provider Abdominal swelling Date Last Reviewed: 01/23/201819990083-1050 [employer]. [address] [place] [address]. All righ ts reserved. This information is not intended as a substitute for professional medical care. Always follow your healthcare professional's instructions. documented in this encounter Progress Notes Kurt Campbell DO - 08/13/2019 7:45 AM PDTFormatting of this note might be different fro m the original. Subjective: Renny Saravia is a 19 y.o. female patient of Kurt Campbell DO. Chief Complaint: Abdominal Pain Abdominal Pain This is a new problem. The current episode started 1 to 4 weeks ago. The onset quality is g radual. The problem occurs daily. The problem has been gradually worsening. The pain is loca kira in the epigastric region. The pain is at a severity of 7/10. The pain is moderate. The q uality of the pain is aching and burning. The abdominal pain radiates to the LUQ and RUQ. As sociated symptoms include belching and flatus. Pertinent negatives include no fever, frequen cy, nausea or vomiting. Exacerbated by: Stress. The pain is relieved by eating and certain p ositions. She has tried antacids for the symptoms. The treatment provided no relief. Started around August 03 after she was evicted from her home. Denies; radiation into th roat and chest. Uses the position when the pain is worsening. When this began the pain was constant and has gradually became less through out the day. PREVENTIVE CARE/PRIOR VISITS Health Maintenance Preventative Services TOPIC LAST DONE NEXT DUE Vaccine: Influenza 12/03/2013 07/26/2019 Well Child Check 2002 Vaccine: Dtap/Tdap/Td 07/25/2010 07/26/2010 Vaccine: Pneumococcal 19-64 (Ppsv23 Only) Medium Risk 2018 2.Immunizations Immunization History Administered Date(s) Administered DT (PED) 1999, 1999, 06/28/2000, 06/15/2004 DTP (PED) 1999 HEP A, 2 DOSE (PED/ADOL) 01/31/2001, 08/04/2001 HIB (PRP-T), 4 DOSE (PED) 1999, 1999, 1999, 06/28/2000 HPV, QUADRIVALENT, 3 DOSE (ADOL/ADULT) 08/05/2014, 11/08/2014, 04/12/2015 Hep B (PED/ADOL) 3 DOSE 1999, 1999, 1999 INFLUENZA TRIV W/PRES(PED/ADOL/ADULT),MULTIDOSE 09/14/2009, 10/02/2010, 12/03/2013 INFLUENZA, F3C0-12, UNSPECIFIED 12/28/2009 INFLUENZA, UNSPECIFIED FORMULATION 09/14/2009, 10/02/2010, [...] following prescription(s): acetaminoph en, albuterol, albuterol, bupropion, dicyclomine, diphenhydramine, epinephrine auto-injector , flovent hfa, loratadine, lorazepam, misc natural products, ondansetron, ranitidine, and tr azodone. Past Medical History She has a past [...] Last attempt to quit: 2017 Years since quittin.7 Smokeless tobacco: Current User Tobacco comment: vaping [...] Review of Systems Constitutional: Negative for fever. Gastrointestinal: Positive for abdominal pain and flatus. Negative for nausea and vomiting. Genitourinary: Negative for frequency. Objective: Vitals: 08/13/19 0744 BP: 102/64 Pulse: 99 Resp: 16 Temp: 37 C (98.6 F) TempSrc: Temporal SpO2: 100% Weight: 49.8 kg (109 lb 12.6 oz) Height: 1.6 m (5' 3") Physical Exam Constitutional: She is oriented to [...] distension and no mass. There is no tenderness. There is no rebound and no guarding. Musculoskeletal: She exhibits no edema. Lymphadenopathy: She has no cervical adenopathy. Neurological: She is alert and oriented to person, place, and time. Coordination normal. Skin: Skin is warm and dry. She is not diaphoretic. Psychiatric: She has a normal mood and affect. Her behavior is normal. Nursing note and vitals reviewed. Ortho Exam Results for orders placed or performed during the hospital encounter of 05/01/19 CBC with Differential Result Value Ref Range WBC 8.3 4.0 - 11.0 K/uL RBC 3.65 (L) 3.70 - 5.20 M/uL Hemoglobin 11.0 (L) 11.5 - 16.0 g/dL Hematocrit 33.5 (L) 34.0 - 47.0 % MCV 91.8 83.0 - 101.0 fL MCH 30.1 28.0 - 35.0 pg MCHC 32.8 32.0 - 36.0 g/dL RDW-CV 12.7 <15.0 % RDW-SD 41.5 35.1 - 46.3 fL Platelet Count 311 140 - 440 K/uL MPV 9.1 6.5 - 12.4 fL % Neutrophils 42.7 (L) 45.0 - 82.0 % % Lymphocytes 34.8 20.0 - 45.0 % % Monocytes 11.0 4.0 - 12.0 % % Eosinophils 10.1 (H) 0.0 - 5.0 % % Basophils 1.0 0.0 - 1.0 % % Immature Granulocytes 0.4 0.0 - 0.4 % Absolute Neutrophils 3.56 1.80 - 8.50 K/uL Absolute Lymphocytes 2.89 0.60 - 3.20 K/uL Absolute Monocytes 0.91 0.00 - 1.00 K/uL Absolute Eosinophils 0.84 (H) 0.00 - 0.40 K/uL Absolute Basophils 0.08 0.00 - 0.10 K/uL Absolute Immature Granulocytes 0.03 0.00 - 0.03 K/uL % nRBC 0 0 - 2 per 100 WBCs Absolute nRBC 0.00 0.00 - 0.01 K/uL Extra Green Top Tube Result Value Ref Range Extra Green Top Tube Done Extra Blue Top Tube Result Value Ref Range Extra Blue Top Tube Done Extra Gold Top Tube Result Value Ref Range Extra Gold Top Tube Done Extra Green Top Tube Result Value Ref Range Extra Green Top Tube Done Extra Green Top Tube Result Value Ref Range Extra Green Top Tube Done Type and Screen Result Value Ref Range ABO A Rh Type Positive Antibody Screen Negative Assessment and Plans: 1. Gastritis, presence of bleeding unspecified, unspecified chronicity, unspecified gastrit is type raNITIdine (ZANTAC) 150 MG capsule dicyclomine (BENTYL) 10 mg capsule DISCONTINUED: dicyclomine (BENTYL) 10 mg capsule 2. Stress 1. Gastritis 2. Stress 3. IBS I have concerns of gastritis, I would like to begin with treating her with an antacid such as protonics or Zantac. Today we will begin Zantac and if symptoms don't improve we will mov e to protonics. Advised patient I will prescribe bentyl to help alleviate IBS symptoms that may arise. Provided patient information with foods to stay away from while this issue improv es. Care instructions and warning signs were discussed. Medications per orders. Side effects discussed. Labs and investigations per orders I STEFF Dudley, am acting as a scribe on behalf of, and in the presence of Kurt frederick DO. Electronically signed by: Lindsey Chamberlain Bucket Wash Operator 08/13/2019 7:44 I have reviewed and edited this note: Kurt Campbell DO 08/13/19 I, Kurt Campbell DO , personally performed the services described in this documentation, as scribed in my presence by Lindsey ARTIS and it is both accurate and complete. Electron ically signed by Kurt Campbell DO on 08/13/2019 at 8:22 . This note is dictated using [employer] voice recognition software. This note was dictated [...] | | | | | | [place] [address] | | | | | | [phone] | | | | | | | | +--------+ + + + + | 09/22/ | Office | Physical Medicine | Gonzalo Merchant | | | 2019 | Visit | and Rehabilitation | [address] | | | | | | [place] | | | | | | [address] | | | | | | | | +--------+ + + + + | 09/29/ | Virtual | Pain Medicine | Peggy Arreola | | 2019 | Office | | [address] | | | | Visit | | [place] | | | | | | [place], | | | | | | [place] [address] | | | | | | [phone] | | | | | | | | +--------+ + + + + | 01/24/ | Office | Family Medicine | Kurt Campbell, | | | 2020 | Visit | | DO [address] | | | | | | [place] | | | | | | [address] | | | | | | | | +--------+ + + + + documented as of this encounter Procedures + +--------+ + + + | Procedure Name | Priori | Date/Time | Associated Diagnosis | Comments | | | ty | | | | + +--------+ + + + | PATHOLOGY - EXTERNAL | | 04/28/2020 | | Results for this | | SCAN | | 12:00 AM | | procedure are in the | | | | PDT | | results section. | + +--------+ + + + documented in this encounter Results PATHOLOGY - EXTERNAL SCAN (04/28/2020 12:00 AM PDT) + + + | Narrative | Performed At | + + + | Ordered by an | | | unspecified provider. | | + + + documented in this encounter Visit Diagnoses + + | Diagnosis | + + | Gastritis, presence of bleeding unspecified, unspecified chronicity, unspecified | | gastritis type - Primary | + + | Stress Other psychological or physical stress, not elsewhere classified | + + documented in this encounter
--- OUTSIDE RECORDS SUMMARY | ~2020-09-05 | XMS | Encounter Summary ---
Demographics + + + | Address | [address] | | | [place] [address] | + + + | Home Phone | | + + + | Preferred Language | Unknown | + + + | Marital Status | Single | + + + | Bahai Affiliation | 1059 | + + + [...] | | | | | [place] [address] | | + + + + + | Concha Paulino | ECON | [address] | | | | | [place] [address] | | + + + + + Care Team Providers + +------+ + | Care It Administrator Name | Role | Phone | + +------+ + | Kurt Campbell DO | PCP | | + +------+ + Reason for Visit +---------+--------+ + | Reason | Onset | Comments | | | Date | | +---------+--------+ + | Results | 06/09/ | | | | 2020 | | +---------+--------+ + Encounter Details +--------+ + + + + | Date | Type | Department | Care Team | Description | +--------+ + + + + | 05/03/ | Telephone | [facility] | Kurt Campbell, | Results | | 2019 | | MEDICINE [place] | DO [address] | | | | | [address] | [place] | | | | | [place] | [address] | | | | | [address] | | | | | | [phone] | | | +--------+ + + + [...] this encounter Miscellaneous Notes Telephone Encounter - Steph Leavitt RN - 05/03/2020 4:01 PM PDTPatient returns phone ca ll. Relayed results to patient. She verbalized understanding. elephone Encounter - Lindsey Gonzalez Medical Assistan t - 05/03/2020 3:42 PM PDTCalled patient to provide result notes, LVM to return our call. I f patient calls back please provide her both provider notes. elephone Encounter - Lindsey Gonzalez Bet Taker - 05/03/2020 3:42 PM PDT----- Message from SINDI Olmedo sent at 2:06 PM PDT ----- Please contact patient/guardian about message below: Danyell-Farooq virus panel shows prior mononucleosis infection at some point in the past. The test cannot predict the timing of this infection. documented in this encounter Plan of Treatment +--------+ + + + + | Date | Type | Specialty | Care Team | Description | +--------+ + + + + | 09/07/ | Office | Cardiology | Tawana Mcdonald | | 2019 | Visit | | [address] | | | | | | [place] | | | | | | [place] [address] | | | | | | [phone] | | | | | | | | +--------+ + + + + | 09/22/ | Office | Physical Medicine | Gonzalo Merchant, | | 2019 | Visit | and Rehabilitation | MD [address] | | | | | | [place] | | | | | | [address] | | | | | | | | +--------+ + + + + | 09/29/ | Virtual | Pain Medicine | Pacheco Arreolaelle | | | 2019 | Office | | [address] | | | | Visit | | [place] | | | | | | [place] | | | | | | [place] [address] | | | | | | [phone] | | | | | | | | +--------+ + + + + | 01/24/ | Office | Family Medicine | Kurt Campbell, | | | 2020 | Visit | | [address] | | | | | | [place] | | | | | | [id number] | | | | | | | | +--------+ + + + + documented as of this encounter Visit Diagnoses Not on filedocumented in this encounter"
--- OUTSIDE RECORDS SUMMARY | ~2020-09-05 | XMS | Encounter Summary ---
Demographics + + + | Address | [address] | | | [place] [address] | + + + | Home Phone [...] | | | | | [place] [address] | | + + + + + | Concha Paulino | ECON | [address] | | | | | [place] [address] | | + + + + + Care Team Providers + +------+ + | Care Furniture Mover Helper Name | Role | Phone | + +------+ + PCP | Unavailable | + +------+ + Encounter Details +--------+ + + + + | Date | Type | Department | Care Team | Description | +--------+ + + + + | 02/06/ | Hospital | [facility] | Eros Swift | | | 2008 | Encounter | MED [facility] EMER[facility]Y | MD Ivan [address] | | | | [place] [address] | [facility] | | | | | [place], [place] | [place] [address] | | | | | [address] | [phone] | | | | | [phone] | | | +--------+ + + + [...] | | | | | [place] [address] | | | | | | [phone] | | | | | | | | +--------+ + + + + | 09/22/ | Office | Physical Medicine | Gonzalo Merchant, | | | 2019 | Visit | and Rehabilitation | MD [address] | | | | | | [place] | | | | | | [id number] | | | | | | | | +--------+ + + + + | 09/29/ | Virtual | Pain Medicine | Peggy Arreola | | | 2019 | Office | | [address] | | | | Visit | | [place] | | | | | | [place] | | | | | | [place] [address] | | | | | | [phone] | | | | | | | | +--------+ + + + + | 01/24/ | Office | Family Medicine | Kurt Campbell, | | | 2020 | Visit | | DO [address] | | | | | | [place] | | | | | | [id number] | | | | | | | | +--------+ + + + + documented as of this encounter Visit Diagnoses Not on filedocumented in this encounter"
--- OUTSIDE RECORDS SUMMARY | ~2020-09-05 | XMS | Encounter Summary ---
Demographics + + + | Address | [address] [facility] | | | [place] [address] | + + + | Home Phone | | + + + | Preferred Language | Unknown | + + + | Marital Status | Single | + + + | Congregation Affiliation | 1059 | + + + | Race | Unknown | + + + | Ethnic Group | Not or | + + + Author + + + | Author | [facility] | | | and [place] | + + + | Organization | [facility] | | | and [...] | | | | | [place] [address] | | + + + + + | Concha Paulino | ECON | [address] | | | | | [place] [address] | | + + + + + Care Team Providers + +------+ + | Care Family Court Justice Name | Role | Phone | + +------+ + | Leonid Osorio MD | PCP | | + +------+ + Encounter Details +--------+ + + + + | Date | Type | Department | Care Team | Description | +--------+ + + + + | 06/28/ | Documentati | [facility] | Anabella Swift, | | | 2015 | on | for Congenital Heart | Technologist | | | | | Disease [address] | | | | | [address] | | | | | | [place] | | | | | | [address] | | | | | | [phone] | | | +--------+ + + + [...] as of this encounter Progress Notes Anabella Swift, Technologist - 06/28/2016 4:07 PM PDTSpectocor event monitor orderedElect ronically signed by Anabella Swift Technologist at 06/28/2016 5:12 PM PDTdocumented in thi s encounter Plan of Treatment [...] | | | | | [place] [address] | | | | | | [phone] | | | | | | | | +--------+ + + + + | 09/22/ | Office | Physical Medicine | Gonzalo Merchant | | | 2019 | Visit | and Rehabilitation | MD Dane Johnson | | | | | | [place] | | | | | | [address] | | | | | | | | +--------+ + + + + | 09/29/ | Virtual | Pain Medicine | Peggy Arreola | | | 2019 | Office | | [address] | | | | Visit | | [address] | | | | | | [place] | | | | | | [place] [address] | | | | | | [phone] | | | | | | | | +--------+ + + + + | 01/24/ | Office | Family Medicine | Kurt Campbell, | | | 2020 | Visit | | DO [address] | | | | | | [place] | | | | | | [address] | | | | | | | | +--------+ + + + + documented as of this encounter Visit Diagnoses Not on filedocumented in this encounter"
--- OUTSIDE RECORDS SUMMARY | ~2020-09-05 | XMS | Encounter Summary ---
Demographics + + + | Address | [address] [facility] | | | [place] [address] | + + + | Home Phone | | + + + | Preferred Language | Unknown | + + + | Marital Status | Single | + + + | Buddhist Affiliation | 1059 | + + + [...] | | | | | [place] [address] | | + + + + + | Concha Paulino | ECON | [address] | | | | | [place] [address] | | + + + + + Care Team Providers + +------+ + | Care Satellite Installer Name | Role | Phone | + +------+ + | Kurt Campbell DO | PCP | | + +------+ + Reason for Visit + +--------+ + | Reason | Onset | Comments | | | Date | | + +--------+ + | Allergies | 10/20/ | | | | 2018 | | + +--------+ + Encounter Details +--------+ + + + + | Date | Type | Department | Care Team | Description | +--------+ + + + + | 10/20/ | Telephone | [facility] | Kurt Campbell, | Allergies | | 2019 | | MEDICINE [place] | DO [address] | | | | | [address] | [place] | | | | | [place] | [address] | | | | | [address] | | | | | | [phone] | | | +--------+ + + + [...] this encounter Miscellaneous Notes Telephone Encounter - Alisha Mo RN - 10/21/2019 2:17 PM PSTMychart message has b een sent to patient with this information. elephone Encounter - Kurt Campbell DO - 10/20/2019 5:34 PM PSTB lood tests for allergies are historically very inaccurate. Allergy testing can be done through Dr. merchant's office or an agriculture professor. The patient would like to pursue allergy testing options for her hives then we can do a ref erral to Dr. merchant's office. elephone Encounter - Felisa Samuels RN - 10/20/2019 8:18 AM PSTReceived My Chart message from patient: Hi! I was wondering if it would be possible for me to get allergy testing done at some poin t in the near future. I just had a hive outbreak about a week ago that lasted for a few days and I have no idea what could have triggered it, and the urgent care doctor said that it mi ght be a good idea to have the allergy testing done. Thank you! Do you want a referral pended to Dr Merchant or do you want to see her? documented in this encounter Plan of Treatment +--------+ + + + + | Date | Type | Specialty | Care Team | Description | +--------+ + + + + | 09/07/ | Office | Cardiology | Tawana Mcdonald | | 2019 | Visit | | [address] | | | | | | [place] | | | | | | [place] [address] | | | | | | [phone] | | | | | | | | +--------+ + + + + | 09/22/ | Office | Physical Medicine | Gonzalo Merchant, | | | 2019 | Visit | and Rehabilitation | MD Dane Johnson | | | | | | [place] | | | | | | [address] | | | | | | | | +--------+ + + + + | 09/29/ | Virtual | Pain Medicine | Peggy Arreola | | | 2019 | Office | | [address] | | | | Visit | | [place] | | | | | | [place] | | | | | | [place] [address] | | | | | | [phone] | | | | | | | | +--------+ + + + + | 01/24/ | Office | Family Medicine | Kurt Campbell, | | | 2020 | Visit | | DO [address] | | | | | | [place] | | | | | | [id number] | | | | | | | | +--------+ + + + + documented as of this encounter Visit Diagnoses Not on filedocumented in this encounter"
--- OUTSIDE RECORDS SUMMARY | ~2020-09-05 | XMS | Encounter Summary ---
Demographics + + + | Address | [address] [facility] | | | [place] [address] | + + + | Home Phone [...] + + + | Author | [facility] | | | and [place] | + + + | Organization | [facility] | | [...] | | | | | [place] [address] | | + + + + + | Concha Paulino | ECON | [address] | | | | | [place] [address] | | + + + + + Care Team Providers + +------+ + | Care Carpet Binder Name | Role | Phone | + +------+ + | Tomeka Gomez | PCP | | | Fabian DO | | | + +------+ + Encounter Details +--------+ + + + + | Date | Type | Department | Care Team | Description | +--------+ + + + + | 05/23/ | Hospital | [facility] | Serjio Dee, | | | 2017 | Encounter | MED CTR POC | MD [address] | | | | | ULTRASOUND [address] | [facility] [place] | | | | | [place], | [place] [address] | | | | | [place] [address] | [phone] | | | | | [phone] | | | +--------+ + + + [...] | | | | | [place] [address] | | | | | | [phone] | | | | | | | | +--------+ + + + + | 09/22/ | Office | Physical Medicine | Gonzalo Merchant, | | | 2019 | Visit | and Rehabilitation | MD [address]ane Johnson | | | | | | [place] | | | | | | [address] | | | | | | | | +--------+ + + + + | 09/29/ | Virtual | Pain Medicine | Peggy Arreola | | 2019 | Office | | [address] | | | | Visit | | [place] | | | | | | [place], | | | | | | [place] [address] | | | | | | [phone] | | | | | | | | +--------+ + + + + | 01/24/ | Office | Family Medicine | Kurt Campbell, | | | 2020 | Visit | | DO [address] | | | | | | [place] | | | | | | [address] | | | | | | | [...] | PDT | + +---------+--------+ + + documented as of this encounter Visit Diagnoses Not on filedocumented in this encounter"
--- OUTSIDE RECORDS SUMMARY | ~2020-09-05 | XMS | Encounter Summary ---
Demographics + + + | Address | [address] [facility] | | | [place] [address] | + + + | Home Phone [...] | | | | | [place] [address] | | + + + + + | Concha Zeeshanletty | ECON | [address] | | | | | [place] [address] | | + + + + + Care Team Providers + +------+ + | Care Rn Neurology Name | Role | Phone | + [...] + + | Authorized | Specialty | Pain Medicine | Diagnoses | Vawter, | Mode Nsc | | | Services | | Trigger | Krut High DO | Dolorology | | | Required | | point of | [address] | | | | | thoracic | [place] | DR [address]LE[address] | | | | | region | [place] | [address] | | | | | Chronic | [address] | [address] | | | | | midline | Phone: | Phone: | | | | | thoracic | [phone] | [phone] | | | | | back pain | Fax: | Fax: | | | | | Scoliosis of | [phone] | [phone] | | | | | thoracic | | | | | | | spine, | | | | | | | unspecified | | | | | | | scoliosis | | | | | | | type | | | + + + + + + + Encounter Details +--------+ + + + + | Date | Type | Department | Care Team | Description | +--------+ + + + + | 08/14/ | Orders Only | [facility] | Kurt Campbell, | Trigger point of | | 2019 | | [facility] | DO [address] | thoracic region | | | | [address] | [place] | (Primary Dx); | | | | [place] | [address] | Chronic midline | | | | [address] | | thoracic back pain; | | | | [phone] | | Scoliosis of | | | | | | thoracic spine, | | | | | | unspecified | | | | | | scoliosis type | +--------+ + + + + [...] | | | | | [place] [address] | | | | | | [phone] | | | | | | | | +--------+ + + + + | 09/22/ | Office | Physical Medicine | Gonzalo Merchant, | | | 2019 | Visit | and Rehabilitation | [address] | | | | | | [place] | | | | | | [address] | | | | | | | | +--------+ + + + + | 09/29/ | Virtual | Pain Medicine | Peggy Arreola | | | 2019 | Office | | [address] | | | | Visit | | [place] | | | | | | [place], | | | | | | [place] [address] | | | | | | [phone] | | | | | | | | +--------+ + + + + | 01/24/ | Office | Family Medicine | Kurt Campbell, | | | 2020 | Visit | | DO [address] | | | | | | [place] | | | | | | [address] | | | | | | | | +--------+ + + + + + + +--------+ + + | Name | Type | Priori | Associated Diagnoses | Order Schedule | | | | ty | | | + + +--------+ + + | [facility] | Outpatient | Routin | Trigger point of | Ordered: 08/14/2020 | | Management - AMB | Referral | e | thoracic region | | | Referral | | | Chronic midline | | | | | | thoracic back pain | | | | | | Scoliosis of | | | | | | thoracic spine, | | | | | | unspecified | | | | | | scoliosis type | | + + +--------+ + + documented as of this encounter Visit Diagnoses + + | Diagnosis | + + | Trigger point of thoracic region - Primary Backache, unspecified | + + | Chronic midline thoracic back pain | + + | Scoliosis of thoracic spine, unspecified scoliosis type | + + documented in this encounter"
--- OUTSIDE RECORDS SUMMARY | ~2020-09-05 | XMS | Encounter Summary ---
Demographics + + + | Address | [address] [facility] | | | [place] [address] | + + + | Home Phone [...] Author + + + | Author | [facility] | | | and [place] | + + + | Organization | [facility] | | [...] | | | | | [place] [address] | | + + + + + | Concha Paulino | ECON | [address] | | | | | [place] [address] | | + + + + + Care Team Providers + +------+ + | Care Nutrition Assistant Name | Role | Phone | + +------+ + | Kurt Campbell DO | PCP | | + +------+ + Reason for Visit + + + | Reason | Comments | + + + | Follow-up | | + + + | Palpitations | | + + + | Tachycardia | | + + + | Chest Pain | | + + + Evaluate & Treat (Routine) + + + [...] | [address] | [address] | | | | | ular | [address] [place] | [place], | | | | | tachycardia | [place] | [place] | | | | | ([facility]) | [address] | [address] | | | | | Tachycardia, | Phone: | Phone: | | | | | unspecified | [phone] | [phone] | | | | | | Fax: | Fax: | | | | | Palpitations | [phone] | [phone] | | | | | Procedures | [...] Description | +--------+---------+ + + + | 06/16/ | Office | [facility] | Tawana Mcdonald | Palpitation (Primary | | 2020 | Visit | CARDIOLOGY [address] | [place] [address] | Dx); Chest pain, | | | | [place], | [address] [place] | unspecified type; | | | | [place] [address] | [place] [address] | Tachycardia; SVT | | | | [phone] | [phone] | (supraventricular | | | | | | tachycardia) ([facility]) | +--------+---------+ + + + Social History [...] + + + | Blood Pressure | 100/72 | 06/16/2020 10:39 AM | | | | | PDT | | + + + + + | Pulse | 86 | 06/16/2020 10:39 AM | | | | | PDT | | + + + + + | Temperature | - | - | | + + + + + | Respiratory Rate | 12 | 06/16/2020 10:39 AM | | | | | PDT | | + + + + + | Oxygen Saturation | - | - | | + + + + + | Inhaled Oxygen | - | - | | | Concentration | | | | + + + + + | Weight | 48.1 kg (106 lb 0.7 | 06/16/2020 10:39 AM | | | | oz) | PDT | | + + + + + | Height | 157.5 cm (5' 2") | 06/16/2020 10:39 AM | | | | | PDT | | + + + + + | Body Mass Index | 19.4 | 06/16/2020 10:39 AM | | | | | PDT [...] documented as of this encounter Progress Notes Tawana Mcdonald PA-C - 06/16/2020 11:15 AM PDTFormatting of this note might be differen t from the original. PATIENT NAME: Renny Saravia : 2000: AGE: 20 y.o. REFERRED BY: Kurt Campbell DO PRIMARY CARE: Kurt Campbell DO CARDIOLOGY OFFICE VISIT Date of Service: 06/16/20 HISTORY OF PRESENT ILLNESS: Renny Saravia is a 20 y.o. female with a history of anxiety, tobacco use, palpitati ons and tachycardia. She is being seen today for a follow-up visit. She presents with her boyfriend:Mor. Previously she had presented with her mother Concha. Since last visit, she has had occasional palpitations described as a flip flop in her chest lasting for only a few seconds. She denies any sustained tachycardia or concerning palpita tions. She admits to drinking 2-3 red bull drinks per day, and has limited to no water inta ke. She does not have a regular exercise program. She has been working nights for 9 months with poor sleep. She has had a poor energy level. She tries to stay active. She enjoys taking naps in her spare time. She has random chest pain that comes on for no reason and last about 2-10 minut es . She has shortness of breath with exertion, but she relates it to having asthma. She has not had any lightheadedness or dizziness. She has palpitaions with being tired and anxi ety. She has not had leg swelling. She is able to sleep laying down at night without any s ymptoms of shortness of breath. She does not have a CPAP machine. Pertinent historical clinical information: She was initially [...] mortem workup apparently was carried out at [facility]; no records are available for review. [...] Procedure: COLONOSCOPY; Surgeon: Kanu Kidd MD; Location: [facility] MEDICAL PROCEDURE UNIT DENTAL SURGERY [...] Breath. 60 vial 0 buPROPion (WELLBUTRIN XL) 300 mg 24 hr tablet Take 1 tablet by mouth Daily. (Patient ta calvin differently: Take 150 mg by mouth Daily .) 90 tablet 1 cyclobenzaprine (FLEXERIL) 10 mg tablet Take 1 tablet by mouth 3 times daily as needed for Muscle spasms. 21 tablet 0 diphenhydrAMINE (BENADRYL) 25 mg tablet Take 25 mg by mouth every 6 hours as needed for Itching. EPINEPHrine auto-injector 0.3 mg/0.3 mL injection Inject 0.3 mLs into the muscle as nee ded for Anaphylaxis. 2 each 1 FLOVENT HFA 44 MCG/ACT inhaler Inhale 2 puffs into the lungs Daily. 3 Inhaler 3 FLUoxetine (PROZAC) 20 mg capsule Take 1 capsule by mouth Daily. 30 capsule 1 fluticasone (FLONASE) 50 mcg/nasal spray 2 sprays by Nasal route Daily. 16 g 12 Loratadine (CLARITIN) 10 MG CAPS Take 1 capsule by mouth as needed. meclizine (ANTIVERT) 25 mg tablet take 1 to 2 tablets by mouth if needed for VERTIGO 0 MISC NATURAL PRODUCTS PO Take by mouth. Parris's Mints. Natural CBD 5-10 mg as needed fo r headaches norgestimate-ethinyl estradiol (ORTHO TRI-CYCLEN LO) 0.18/0.215/0.25 mg-25 mcg TABS ondansetron (ZOFRAN ODT) 4 mg disintegrating tablet Take 1 tablet by mouth every 6 hour s as needed for Nausea. 15 tablet 0 raNITIdine (ZANTAC) 150 MG capsule Take [...] the media tab. OBJECTIVE: PHYSICAL EXAM BP 100/72 | Pulse 86 | Resp 12 | Ht 1.575 m (5' 2") | Wt 48.1 kg (106 lb 0.7 oz) | BMI 19.40 kg/m Physical Exam Constitutional: She is oriented to person, place, and time. She appears well-developed and well-nourished. She does not appear ill. No distress. HENT: Head: Normocephalic and atraumatic. Eyes: EOM are normal. No scleral icterus. Neck: No JVD present. Cardiovascular: Normal rate, regular rhythm, S1 [...] Skin is warm and dry. No erythema. Psychiatric: She has a normal mood and affect. Her behavior is normal. Vitals reviewed. ECG: Normal Sinus rhythm with sinus arrhythmia, HR 86. Normal ECG. Previously notable for normal sinus rhythm, heart rate 70. LAB RESULTS: LIPID No results found for: CHOL, TRIG, HDL, LDL, CHOLHDL, LDLEX, HDLEX, TRIGEX, CHOLEX CHEMISTRY Lab Results Component Value Date GLU 90 04/05/2020 NA 140 04/05/2020 K 3.5 04/05/2020 CL 107 04/05/2020 CO2 28 04/05/2020 CALCIUM 9.6 04/05/2020 ALKPHOS 63 04/05/2020 AST 18 04/05/2020 ALT 21 04/05/2020 BILITOT 0.7 04/05/2020 CREA 0.76 04/05/2020 BUN 8 (L) 04/05/2020 EGFR Cannot calculate. 12/29/2017 HEMATOLOGY Lab Results Component Value Date WBC 8.3 04/29/2020 HGB 13.5 04/29/2020 HCT 38.8 04/29/2020 PLT 369 04/29/2020 I, previously, reviewed records from PCP for [...] rather sharp and effective historian, clearly describing pr evious symptoms consistent with PSVT without clear correlation to various potential contribu ting factors. On occasion, she has not been able to effectively self terminate some episode s, in spite of using various maneuvers. She has previously presented to her local emergency department on a few occasions, and believes that they have typically spontaneously terminat ed and did not require pharmacologic or electrical cardioversion. Patient does experience d iscomfort during these episodes but denies associated severe lightheadedness or syncope. Sh elver had previously had reduced severity of these episodes more recently, with self termination for all episodes with frequency 1-2x per month. Her recent ambulatory monitor was notable for a brief run of 5 beats of supraventricular ec topy, as well as transient sinus tachycardia which patient believes is correlating to an anx iety episode. She denies recurrence in the past 6 months. For now we will continue with co nservative measures including behavioral modification, minimizing use of stimulants, and rev iew of strategies for tachycardia termination. In the future, she may very well benefit fro m future referral to electrophysiology for consideration of ablation, but ideally we will at tempt to better define the exact dysrhythmia. We previously discussed potential use of [employer] phone technology - use of the [employer] sujatha -so that the patient may possibly assist in diagn osis of her dysrhythmia if ambulatory monitoring fails to further elucidate this. Patient's echocardiogram was normal. In the meanwhile of encouraged her to indulge in good hydration and stress management, avoi ding stimulants. 2. Tobacco cessation -this was previously discussed at length with the patient - I have pr eviously advised the patient to switch to vaping nicotine free products or discontinuation c ompletely. PLAN: 1. No further cardiovascular diagnostics. 2. Nicotine and caffine cessation. 3. Optimize hydration 4. Start a regular exercise program 5. May follow up in 1 yr, sooner if clinically indicated Portions of this report were transcribed using voice recognition software. Every effort wa s made to ensure accuracy; however, inadvertent computerized front desk representative errors may be pre sent. Electronically signed by: Tawana Mcdonald PA-C 06/16/2020 documented in th is encounter Plan of [...] | | | | | [place] [address] | | | | | | [phone] | | | | | | | | +--------+ + + + + | 09/22/ | Office | Physical Medicine | Gonzalo Merchant, | | | 2019 | Visit | and Rehabilitation | MD [address] | | | | | | [place] | | | | | | [address] | | | | | | | | +--------+ + + + + | 09/29/ | Virtual | Pain Medicine | Peggy Arreola | | | 2019 | Office | | [address] | | | | Visit | | [place] | | | | | | [place], | | | | | | [place] [address] | | | | | | [phone] | | | | | | | | +--------+ + + + + | 01/24/ | Office | Family Medicine | Kurt Campbell, | | | 2020 | Visit | | DO [address] | | | | | | [place] | | | | | | [address] | | | | | | | | +--------+ + + + + documented as of this encounter Procedures + +--------+ + + + | Procedure Name | Priori | Date/Time | Associated Diagnosis | Comments | | | ty | | | | + +--------+ + + + | ECG 12 LEAD | Routin | 06/16/2020 | Palpitation Chest | Results for this | | | e | 10:42 AM | pain, unspecified | procedure are in the | | | | PDT | type | results section. | + +--------+ + + + documented in this encounter Results ECG 12 lead (06/16/2020 10:42 AM PDT) + + + + + + | Component | Value | Ref Range | Performed | Pathologist | | | | | At | Signature | + + + + + + | VENTRICULAR | 86 | BPM | [facility] | | | RATE EKG | | | | | + + + + + + | ATRIAL RATE | 86 | BPM | [facility] | | + + + + + + | P-R | 154 | ms | [facility] | | | INTERVAL | | | | | + + + + + + | QRS | 88 | ms | [facility] | | | DURATION | | | | | + + + + + + | Q-T | 366 | ms | [facility] | | | INTERVAL | | | | | + + + + + + | Q-T | 437 | ms | [facility] | | | INTERVAL | | | | | | (CORRECTED) | | | | | + + + + + + | P WAVE AXIS | 79 | degrees | [facility] | | + + + + + + | QRS AXIS | 63 | degrees | [facility] | | + + + + + + | T AXIS | 64 | degrees | [facility] | | + + + + + + | INTERPRETAT | Normal sinus rhythm with | | [facility] | | | ION TEXT | sinus arrhythmiaNormal | | | | | | ECGWhen compared with | | | | | | ECG of 12-MAR-2019 | | | | | | 11:15,No significant | | | | | | change was | | | | | | foundConfirmed by FARZANA | | | | | | ELIO MARCUS ([id number]) on | | | | | | 06/17/2020 1:23:30 PM | | | | + + + + + + + + | Specimen | + + | | + + + +---------+ + [...]
--- OUTSIDE RECORDS SUMMARY | ~2020-09-05 | XMS | Encounter Summary ---
Demographics + + + | Address | [address] | | | [place] [address] | + + + | Home Phone [...] Author + + + | Author | [facility] | | | and [place] | + + + | Organization | [facility] | | [...] | | | | | [place] [address] | | + + + + + | Concha Paulino | ECON | [address] | | | | | [place] [address] | | + + + + + Care Team Providers + +------+ + | Care Lamp Shade Joiner Name | Role | Phone | + +------+ + | Ishan Campbell DO | PCP | | + +------+ + Reason for Visit + + + | Reason | Comments | + + + | Abdominal Pain | | + + + Encounter Details +--------+ + + + + | Date | Type | Department | Care Team | Description | +--------+ + + + + | 04/05/ | Emergency | [facility] | Lexa Alston MD | Cyst of ovary, | | 2020 | | [facility] | [address] | unspecified | | | | CENTER [address] | [place] | laterality (Primary | | | | [place] | [address] | Dx) | | | | [address] | | | | | | [phone] | | | +--------+ + + + [...] + + + | Blood Pressure | 118/76 | 04/05/2020 3:56 PM | | | | | PDT | | + + + + + | Pulse | 78 | 04/05/2020 3:56 PM | | | | | PDT | | + + + + + | Temperature | 36.6 C (97.8 F) | 04/05/2020 2:09 PM | | | | | PDT | | + + + + + | Respiratory Rate | 16 | 04/05/2020 3:56 PM | | | | | PDT | | + + + + + | Oxygen Saturation | 98% | 04/05/2020 3:56 PM | | | | | PDT [...] as of this encounter Discharge Instructions Instructions Lexa Alston MD - 04/05/2020Return for any worsening symptoms, fevers, chills , nausea, vomiting. Follow-up with Dr. Monsalve. AttachmentsThe following attachments cannot be sent through Care Everywhere.Cysts, Ovarian (Icelandic)documented in this encounter Medications at Time of [...] into | 18 g | 0 | 03/08/20 | | | HFA) 90 mcg/puff | the lungs every 6 | | | 20 | | | inhalerIndications: | hours as needed [...] by | 60 vial | 0 | 03/08/20 | | | mL nebulizer | nebulization every 4 | | | 20 | | | solutionIndications: | hours as needed [...] +---------+ + + | buPROPion | Take 1 tablet by | 30 | 0 | 06/18/20 | | | (WELLBUTRIN XL) 150 | mouth Daily. | tablet | | 19 | 0 | | mg 24 hr | | | | | | | tabletIndications: | | | | | | | Depression, | | | | | | | unspecified | | | | | | | depression type, | | | | | | | Anxiety, Panic | | | | | | | attack | | | | | | + + + +---------+ + + | cyclobenzaprine | Take 1 tablet by | 21 | 0 | 01/17/20 | | | (FLEXERIL) 10 mg | mouth 3 times daily | tablet | | 20 | 0 | | tablet | as needed for Muscle | | | | | | | spasms. | | | | | + + + +---------+ + + | dicyclomine | Take 1 capsule by | 30 | 0 | 08/13/20 | | | (BENTYL) 10 mg | mouth every 6 hours | capsule | | 19 | 0 | | capsuleIndications: | as needed. | | | | | | Gastritis, presence | | | | | | | of bleeding | | | | | | | unspecified, | | | | | | | unspecified | | | | | | | chronicity, | | | | | | | unspecified | | | | | | | gastritis type | | | | | | + [...] + + + +---------+ + + | LORazepam (ATIVAN) | Take 0.5-1 tablets | 8 | 0 | 06/18/20 | | | 0.5 mg | by mouth every 6 | tablet | | 19 | 0 | | tabletIndications: | hours as needed for | | | | | | Anxiety, Panic | Anxiety (flying). | | | | | | attack | | | | | | + + + +---------+ + + | meclizine | take 1 to 2 tablets | | 0 | 09/28/20 | | | (ANTIVERT) 25 mg | by mouth if needed | | | 19 | 0 | | tablet | for VERTIGO | | | | | + + [...] + +---------+ + + | ondansetron | Take 1 tablet by | 15 | 0 | 01/17/20 | | | (ZOFRAN ODT) 4 mg | mouth every 6 hours | tablet | | 20 | 0 | | disintegrating | as needed for | | | | | | tablet | Nausea. | | | | | + + + +---------+ + + | ondansetron | as needed. | | 0 | 04/08/20 | | | (ZOFRAN ODT) 4 mg | | | | 19 | 0 | | disintegrating | | | | | | | tablet | | | | | | + + + +---------+ + + | raNITIdine | Take 1 capsule by | 60 | 1 | 08/13/20 | | | (ZANTAC) 150 MG | mouth 2 times daily. | capsule | | 19 | 0 | | capsuleIndications: | | | | | | | Gastritis, presence | | | | | | | of bleeding | | | | | | | unspecified, | | | | | | | unspecified | | | | | | | chronicity, | | | | | | | unspecified | | | | | | | gastritis type | | | | | | + + + +---------+ + + | traZODone | Take 50 mg by mouth | | 0 | 03/30/20 | | | (DESYREL) 50 mg | as needed. | | | 19 | 0 | | tablet | | | | | | + + + +---------+ + + documented as of this encounter ED Notes Lexa Alston MD - 04/05/2020 2:11 PM PDTFormatting of this note might be different from t he original. [facility] Emergency Department Encounter Note [address] [place] [address] PCP:Ishan Campbell DO x2500 CHIEF COMPLAINT: Chief Complaint Patient presents with Abdominal Pain ED Room: ED17/ED17 HPI Renny Saravia is a 20 y.o. female who presents to the Emergency Department with right low er quadrant pain. Patient has a history of ovarian cyst. She denies any fevers or chills. No nausea or vomiting. No diarrhea or constipation. Does not remember when her LMP was an d she is on oral contraception and is sexually active. Denies any vaginal bleeding or disch arge. Denies hematuria. 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 albuterol (PROAIR HFA) 90 mcg/puff inhaler Inhale 2 puffs into the lungs every 6 hours as needed for Wheezing or Shortness of Breath. albuterol 2.5 mg/3 mL nebulizer solution Take 3 mLs by nebulization every 4 hours as ne eded for Wheezing or Shortness of Breath. buPROPion (WELLBUTRIN XL) 150 mg 24 hr tablet Take 1 tablet by mouth Daily. cyclobenzaprine (FLEXERIL) 10 mg tablet Take 1 tablet by mouth 3 times daily as needed for Muscle spasms. dicyclomine (BENTYL) 10 mg capsule Take 1 capsule by mouth every 6 hours as needed. diphenhydrAMINE (BENADRYL) 25 mg tablet Take 25 mg by mouth every 6 hours as needed for Itching. EPINEPHrine auto-injector 0.3 mg/0.3 mL injection Inject 0.3 mLs into the muscle as nee ded for Anaphylaxis. FLOVENT HFA 44 MCG/ACT inhaler Inhale 2 puffs into the lungs Daily. Loratadine (CLARITIN) 10 MG CAPS Take 1 capsule by mouth as needed. LORazepam (ATIVAN) 0.5 mg tablet Take 0.5-1 tablets by mouth every 6 hours as needed fo r Anxiety (flying). meclizine (ANTIVERT) 25 mg tablet take 1 to 2 tablets by mouth if needed for VERTIGO MISC NATURAL PRODUCTS PO Take by mouth. Parris's Mints. Natural CBD 5-10 mg as needed fo r headaches ondansetron (ZOFRAN ODT) 4 mg disintegrating tablet Take 1 tablet by mouth every 6 hour s as needed for Nausea. ondansetron (ZOFRAN ODT) 4 mg disintegrating tablet as needed. raNITIdine (ZANTAC) 150 MG capsule Take 1 capsule by mouth 2 times daily. traZODone (DESYREL) 50 mg tablet Take 50 mg by mouth as needed. ALLERGIES Allergies Allergen Reactions Rey Flavor Hives Effexor [Venlafaxine] Anaphylaxis Nystatin Swelling Omeprazole Shortness Of Breath Penicillins Hives and Nausea And Vomiting Sulfa Antibiotics Shortness Of Breath Aspirin Other (See Comments) fever Fish Oil Unknown Whooping cough injection/ extreme reaction Macrobid [Nitrofuran Derivatives] Nausea And Vomiting Penicillins Unknown FAMILY AND SOCIAL HISTORY Family History Problem [...] Neg Hx Sudden Neg Hx Social History Socioeconomic History Marital status: Single [...] PHYSICAL EXAM VITAL SIGNS: (first vital signs):Temp: 36.6 C (97.8 F) Pulse: 103 Resp: 16 SpO2: 100 % BP: 128/74 There is no height or weight on file to calculate BMI. Constitutional: female patient, HEENT: Atraumatic, PERRL, Oropharynx benign. Neck: Supple with full range of motion. Respiratory: Good air movement bilaterally. Cardiovascular: Normal S1 S2 Abdomen: Tenderness in the right lower quadrant with rebound, no peritoneal signs, no CVA t enderness Extremities: Nontender Skin: Warm, Dry, No rashes Neurologic: Alert & oriented. No focal deficits., Speech normal, gait not tested Psychiatric: Normal mood, affect and judgement. EKG 12-lead EKG shows LABS Results for orders placed or performed during the hospital encounter of 04/05/20 Urinalysis with Microscopic with Culture if Indicated Result Value Ref Range Color, Urine Straw Light Yellow, Yellow, Straw Clarity Clear Clear pH, Urine 8.0 5.0 - 8.0 Specific Parks, Urine 1.009 1.001 - 1.030 Protein, Urine [...] Negative Negative Internal QC Acceptable Acceptable Specific Parks, POC Lot Number [id number] Expiration Date 2020-11-27 IMAGING STUDIES (X-Rays interpreted by ED Physician) EXAM: CT ABDOMEN PELVIS W CONTRAST dated 04/05/2020 3:30 PM HISTORY:RLQ abdominal pain, appendicitis suspected (Age > 14y) ABDOMINAL PAIN Comparison: CT renal stone 01/17/2020 TECHNIQUE: Imaging is performed from the lung bases through the pubic symphysis following the uneventful intravenous administration of 85 mL Omnipaque 350. Automated exposure control, Adjustment of mA and/or kV according to patient size, and use of iterative reconstruction technique are applied to this exam. DOSE: DLP 94.61 mGy-cm FINDINGS: LUNG BASES: The lung bases are clear. There is no visible pleural effusion or pneumothorax. There is no significant pericardial thickening. LIVER: The liver is unremarkable in attenuation and enhancement. There are no focal liver lesions. GALLBLADDER: The gallbladder is not distended. There are no calcified gallstones. No visible biliary ductal dilatation. SPLEEN: The spleen is unremarkable. There is no splenomegaly. PANCREAS: The pancreas is unremarkable. The pancreatic duct is not dilated. ADRENALS: No adrenal enlargement. No adrenal masses. KIDNEYS: The kidneys are symmetrically enhancing. There are no focal renal lesions. There is no nephrolithiasis. There is no obstructive uropathy. BOWEL: The gastrointestinal tract is unremarkable. There is no evidence for gastrointestinal tract obstruction. There is no evidence for appendicitis. There is no significant diverticular disease. VASCULATURE AND LYMPH NODES: There is no aneurysmal dilatation of the abdominal aorta. There is no pelvic or abdominal lymphadenopathy. BLADDER: The bladder is unremarkable. UTERUS AND ADNEXA:The uterus is unremarkable there is a 2.7 cm probable prominent right ovarian follicle. BONES: There are no acute osseous abnormalities. There are no suspicious lytic or blastic bone lesions. Levoconvex scoliosis. OTHER: There is no free fluid. There is no free air. IMPRESSION: No CT evidence for an acute abdominal or pelvic process. Specifically, no evidence for appendicitis. No gastrointestinal tract obstruction or perforation. No urolithiasis or evidence of an obstructive uropathy. Probable prominent right ovarian follicle. Dictated and Signed by: Von Talley MD Electronically signed: 04/05/2020 4:17 PM ED COURSE & MEDICAL DECISION MAKING Pertinent Labs & Imaging studies were reviewed along with EMS notes and jail record s if applicable. (See chart for details) Medications and Allergy list reviewed. Nurses note and old records were reviewed The patient was seen and examined, 20-year-old female presents with right-sided abdominal pain. She has pain in the right low er quadrant. She does have a history of right ovarian cyst but given rebound and leukocytos is I went ahead and got a CT scan to rule out appendicitis. She has a 2.7 cm dominant folli lino. I think this is likely the source of her pain. She has follow-up with Dr. Monsalve of necology. She is asked to return for any worsening symptoms. Explained the findings to the patient. Last Set of Vital Signs: Temp: 36.6 C (97.8 F) Pulse: 78 Resp: 16 SpO2: 98 % BP: 118/76 FINAL IMPRESSION ICD-10-CM ICD-9-CM 1. Cyst of ovary, unspecified lateralityAcute N83.209 620.2 Follow-up Information Schedule an appointment as soon as possible for a visit with Ishan Campbell DO. Specialty: Family Medicine Contact information: [address] [place] [address] [facility]. Specialty: Emergency Medicine Why: If symptoms worsen Contact information: [address] [place] [address] Lexa Alston MD 04/05/20 2563 cAyde Sidhu RN - 04/05/2020 2:10 PM PDTPt c/o RT lower abdominal pain, hx of RT sided ovarian cysts. Pain x 1.5 weeks, states pain is slightly higher than her usual cysts. documented in this encounter Plan of Treatment +--------+ + + + + | Date | Type | Specialty | Care Team | Description | +--------+ + + + + | 09/07/ | Office | Cardiology | Tawana Mcdonald | | 2019 | Visit | | GLEN Morales [address] | | | | | | [address] | | | | | | [place] [address] | | | | | | [phone] | | | | | | | | +--------+ + + + + | 09/22/ | Office | Physical Medicine | Gonzalo Merchant, | | | 2019 | Visit | and Rehabilitation | MD [address]ane [address] | | | | | | [place] | | | | | | [address] | | | | | | | | +--------+ + + + + | 09/29/ | Virtual | Pain Medicine | Peggy Arreola | | | 2019 | Office | | [address] | | | | Visit | | [address] | | | | | | [place] | | | | | | [place] [address] | | | | | | [phone] | | | | | | | | +--------+ + + + + | 01/24/ | Office | Family Medicine | Ishan Campbell, | | | 2020 | Visit | | DO [address] | | | | | | [place] | | | | | | [address] | | | | | | | | +--------+ + + + + + +------+--------+ + + | Name | Type | Priori | Associated Diagnoses | Date/Time | | | | ty | | | + +------+--------+ + + | ED INFORMATION | FRANDY | Routin | | 04/05/2020 1:52 PM | | EXCHANGE | | e | | PDT | + +------+--------+ + + documented as of this encounter Procedures + +--------+ + + + | Procedure Name | Priori | Date/Time | Associated Diagnosis | Comments | | | ty | | | | + +--------+ + + + | CT ABDOMEN PELVIS W | STAT | 04/05/2020 | | Results for this | | CONTRAST | | 3:39 PM | | procedure are in the | | | | PDT | | results section. | + +--------+ + + + | CBC WITH | STAT | 04/05/2020 | | Results for this | | DIFFERENTIAL | | 2:43 PM | | procedure are in the | | | | PDT | | results section. | + +--------+ + + + | LIPASE | STAT | 04/05/2020 | | Results for this | | | | 2:43 PM | | procedure are in the | | | | PDT | | results section. | + +--------+ + + + | COMPREHENSIVE | STAT | 04/05/2020 | | Results for this | | METABOLIC PANEL | | 2:43 PM | | procedure are in the | | | | PDT | | results section. | + +--------+ + + + | URINALYSIS WITH | STAT | 04/05/2020 | | Results for this | | MICROSCOPIC WITH | | 2:19 PM | | procedure are in the | | CULTURE IF INDICATED | | PDT | | results section. | + +--------+ + + + | POCT TEST, | STAT | 04/05/2020 | | Results for this | | URINE, QUAL | | 2:15 PM | | procedure are in the | | | | PDT | | results section. | + +--------+ + + + | ED INFORMATION | Routin | 04/05/2020 | | | | EXCHANGE | e | 1:52 PM | | | | | | PDT | | | + +--------+ + + + +---+--------+ | | | | | Proced | | | ure | | | Note - | | | Shaun, | | | Lab In | | | | | | Hlseve | | | n - | | | 05/12/ | | | 2020 | | | 1:53 | | | PM PDT | | | | | | Format | | | ting | | | of | | | this | | | note | | | might | | | be | | | differ | | | ent | | | from | | | the | | | origin | | | al.COL | | | LECTIV | | | E?NOTI | | | FICATI | | | ON?05/ | | | 12/202 | | | 0 | | | 13:51? | | | HUDDLE | | | SON, | | | RENNY | | | M?MRN: | | | | | | [id number] | | | [id number] | | | riteri | | | a Met | | | Care | | | Guidel | | | inesSe | | | curity | | | and | | | Safety | | | No | | | recent | | | | | | Securi | | | ty | | | Events | | | | | | curren | | | tly on | | | | | | fileED | | | Care | | | Guidel | | | cricket | | | from | | | [place] | | | ys - | | | [place] | | | laLast | | | | | | Update | | | d: | | | 2/24/2 | | | 0 | | | 10:32 | | | AM | | | Care | | | Coordi | | | nation | | | :Curre | | | ntly | | | engage | | | d in | | | indivi | | | dual | | | therap | | | y with | | | | | | [place] | | | ys.? | | | Please | | | | | | contac | | | t | | | [place] | | | ys | | | with | | | mental | | | | | | health | | | | | | concer | | | ns.? | | | [place] | | | ton/Mi | | | lton | | | [place] | | | ter: | | | [phone] | | | .? | | | [place] | | | ys | | | Crisis | | | : | | | [phone] | | | [phone] | | [phone] | | | hese | | | are | | | guidel | | | cricket | | | and | | | the | | | provid | | | er | | | should | | | | | | exerci | | | se | | | clinic | | | al | | | judgme | | | nt | | | when | | | provid | | | ing | | | care.F | | | lags | | | [place] | | | ED | | | Dispar | | | ity | | | Measur | | | e - | | | [place] | | | has | | | develo | | | ped a | | | flag | | | ([place] | | | n ED | | | Dispar | | | ity | | | Measur | | | e) to | | | help | | | suppor | | | t | | | Medica | | | id | | | member | | | s with | | | | | | mental | | | | | | illnes | | | s. | | | [place] | | | | | | Health | | | | | | Author | | | ity | | | uses | | | claims | | | data | | | with a | | | | | | 36-mon | | | th | | | george | | | g look | | | back | | | period | | | to | | | identi | | | fy | | | member | | | s who | | | have | | | had | | | two or | | | more | | | diagno | | | ses of | | | | | | mental | | | | | | illnes | | | s | | | (does | | | not | | | need | | | to be | | | primar | | | y) in | | | any | | | settin | | | g | | | (e.g. | | | ED, | | | Inpati | | | ent, | | | primar | | | y | | | care). | | | | | | Flagge | | | d | | | member | | | s are | | | includ | | | ed in | | | the ED | | | | | | Dispar | | | ity | | | Measur | | | e | | | denomi | | | nator | | | popula | | | tion. | | | Flags | | | are | | | update | | | d | | | weekly | | | . / | | | Attrib | | | uted | | | By: | | | [place] | | | | | | Health | | | | | | Author | | | ity | | | (OHA) | | | / | | | Attrib | | | uted | | | On: | | | 01/14/ | | | 2020 | | | Prescr | | | iption | | | Drug | | | Report | | | (12 | | | Mo.)PD | | | MP | | | query | | | found | | | no | | | report | | | .E.D. | | | Visit | | | [...] | | | Center | | | 4 0 | | | Total | | | 4 0 | | | Note: | | [...] Recent | | | | | | Emerge | | | ncy | | | Depart | | | ment | | | Visit | | | [facility] | | | yDate | | | Facili | | | ty | | | City | | | State | | | Type | | | Diagno | | | ses or | | | Chief | | | | | | Compla | | | int | | | May | | | 12, | | | 2020 | | | Provid | | | ence | | | [facility] | [place] | | | [place] | | | Emerge | | | ncy | | | | | | ovaria | | | n pain | | | Mar | | | 25, | | | 2020 | | | Provid | | | ence | | | [facility] | [place] | | | [place] | | | Emerge | | | ncy | | | SOB, | | | Cough | | | | | | Fever | | | (9 | | | Weeks | | | To 73 | | | Years) | | | | | | Cough | | | | | | Unspec | | | ified | | | asthma | | | with | | | (acute | | | ) | | | exacer | | | bation | | | Mar | | | 6, | | | 2020 | | | [facility] | | | [place] | | | Urgent | | | Care | | | [place] | | | [place] | | | Urgent | | | Care | | | | | | Cough | | | | | | Shortn | | | ess of | | | | | | Breath | | | | | | Fever | | | | | | Mild | | | persis | | | tent | | | asthma | | | , | | | uncomp | | | licate | | | d | | | Acute | | | bronch | | | itis, | | | unspec | | | ified | | | Feb | | | 23, | | | 2020 | | | Provid | | | ence | | | [facility] | [place] 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 | | [facility] | [place] | | | [place] | | | Emerge | | | ncy | | | | | | Vagina | | | l | | | Bleedi | | | ng | | | Post-o | | | p | | | Proble | | | m | | | Postpr | | | ocedur | | | al | | | hemorr | | | manny | | | of a | | | genito | | | urinar | | | y | | | system | | | organ | | | or | | | Recent | | | | | | Inpati | | | ent | | | Visit | | | [facility] | | | yNo | | | record | | | ed | | | inpati | | | ent | | | visits | | | . Care | | | | | | TeamPr | | | ovider | | | | | | Specia | | | lty | | | Phone | | | Fax | | | Servic | | | e | | | Dates | | | VAWTER | | | , | | | ISHAN | | | , D. | | | O. | | | Family | | | | | | Medici | | | ne | | | Curren | | | t | | | Collec | | | tive | | | Portal | | | This | | | patien | | | [...] | | | https: | | | //prov | | | .colle | | | ctivem | | | edical | | | .com/n | | | otify/ | | | [email or web address] | | | [email or web address] | | | [id number] | | | [email or web address] | | | [email or web address] | | | [phone] | | | | | | PLEASE | | | NOTE: | | | 1. | | | Any | | | care | | | recomm | | | endati | | | ons | | | and | | | other | | | clinic | | | al | | | inform | | | ation | | | are | | | provid | | | ed as | | | guidel | | | cricket | | | or for | | | | | | histor | | | ical | | | purpos | | | es | | | only, | | | and | | | provid | | | ers | | | should | | | | | | exerci | | | se | | | their | | | own | | | clinic | | | al | | | judgme | | | nt | | | when | | | provid | | | ing | | | care. | | | 2. | | | You | | | may | | | only | | | use | | | this | | | inform | | | ation | | | for | | | purpos | | | es of | | | treatm | | | ent, | | | paymen | | | t or | | | health | | | care | | | operat | | | ions | | | activi | | | ties, | | | and | | | subjec | | | t to | | | the | | | limita | | | tions | | | of | | | applic | | | able | | | Collec | | | tive | | | Polici | | | es. | | | 3. | | | You | | | should | | | | | | consul | | | t | | | direct | | | ly | | | with | | | the | | | organi | | | zation | | | that | | | provid | | | ed a | | | care | | | guidel | | | ine or | | | other | | | | | | clinic | | | al | | | histor | | | y with | | | any | | | questi | | | ons | | | about | | | additi | | | onal | | | inform | | | ation | | | or | | | accura | | | cy or | | | comple | | | teness | | | of | | | inform | | | ation | | | provid | | | ed.? | | | 2019 | | | Collec | | | tive | | | Medica | | | l | | | Techno | | | logies | | | , Inc[employer] | | | - | | | [email or web address] | | | llecti | | | vemedi | | | [email or web address] | | | m | +---+--------+ documented in this encounter Results CT Abdomen Pelvis w Contrast (04/05/2020 3:39 PM PDT) + + | Specimen | + + | | + + + + + | Impressions | Performed At | + + + | No CT evidence for an acute abdominal or pelvic process. | [facility] | | Specifically, no evidence for appendicitis. No gastrointestinal | | | tract obstruction or perforation. No urolithiasis or evidence of | | | an obstructive uropathy. Probable prominent right ovarian | | | follicle. Dictated and Signed by: Von Talley MD | | | Electronically signed: 04/05/2020 4:17 PM | | + + + + + + | Narrative | Performed At | + + + | EXAM: CT ABDOMEN PELVIS W CONTRAST dated 04/05/2020 3:30 PM | [facility] | | HISTORY:RLQ abdominal pain, appendicitis suspected (Age > 14y) | | | ABDOMINAL PAIN Comparison: CT renal stone 01/17/2020 TECHNIQUE: | | | Imaging is performed from the lung bases through the pubic symphysis | | | following the uneventful intravenous administration of 85 mL | | | Omnipaque 350. Automated exposure control, Adjustment of mA and/or | | | kV according to patient size, and use of iterative reconstruction | | | technique are applied to this exam. DOSE: DLP 94.61 mGy-cm | | | FINDINGS: LUNG BASES: The lung bases are clear. There is no | | | visible pleural effusion or pneumothorax. There is no significant | | | pericardial thickening. LIVER: The liver is unremarkable in | | | attenuation and enhancement. There are no focal liver lesions. | | | GALLBLADDER: The gallbladder is not distended. There are no | | | calcified gallstones. No visible biliary ductal dilatation. | | | SPLEEN: The spleen is unremarkable. There is no splenomegaly. | | | PANCREAS: The pancreas is unremarkable. The pancreatic duct is not | | | dilated. ADRENALS: No adrenal enlargement. No adrenal masses. | | | KIDNEYS: The kidneys are symmetrically enhancing. There are no | | | focal renal lesions. There is no nephrolithiasis. There is no | | | obstructive uropathy. BOWEL: The gastrointestinal tract is | | | unremarkable. There is no evidence for gastrointestinal tract | | | obstruction. There is no evidence for appendicitis. There is no | | | significant diverticular disease. VASCULATURE AND LYMPH NODES: | | | There is no aneurysmal dilatation of the abdominal aorta. There | | | is no pelvic or abdominal lymphadenopathy. BLADDER: The bladder is | | | unremarkable. UTERUS AND ADNEXA:The uterus is unremarkable there | | | is a 2.7 cm probable prominent right ovarian follicle. BONES: | | | There are no acute osseous abnormalities. There are no suspicious | | | lytic or blastic bone lesions. Levoconvex scoliosis. OTHER: | | | There is no free fluid. There is no free air. | | + + + + + | Procedure Note | + + | Shaun, Rad Results In - 04/05/2020 4:20 PM PDT EXAM: CT ABDOMEN PELVIS W CONTRAST | | dated 04/05/2020 3:30 PMHISTORY:RLQ abdominal pain, appendicitis suspected (Age > | | 13y)ABDOMINAL PAINComparison: CT renal stone 01/17/2020TECHNIQUE: Imaging is performed | | from the lung bases through the pubic symphysisfollowing the uneventful intravenous | | administration of 85 mL Omnipaque 350. Automated exposure control, Adjustment of mA | | and/or kV according to patientsize, and use of iterative reconstruction technique are | | applied to this exam.DOSE: DLP 94.61 mGy-cmFINDINGS: LUNG BASES: The lung bases are | | clear. There is no visible pleural effusion orpneumothorax. There is no significant | | pericardial thickening.LIVER: The liver is unremarkable in attenuation and enhancement. | | There are nofocal liver lesions.GALLBLADDER: The gallbladder is not distended. There | | are no calcifiedgallstones. No visible biliary ductal dilatation.SPLEEN: The spleen is | | unremarkable. There is no splenomegaly.PANCREAS: The pancreas is unremarkable. The | | pancreatic duct is not dilated.ADRENALS: No adrenal enlargement. No adrenal | | masses.KIDNEYS: The kidneys are symmetrically enhancing. There are no focal | | renallesions. There is no nephrolithiasis. There is no obstructive uropathy.BOWEL: The | | gastrointestinal tract is unremarkable. There is no evidence forgastrointestinal tract | | obstruction. There is no evidence for appendicitis. There is no significant | | diverticular disease.VASCULATURE AND LYMPH NODES: There is no aneurysmal dilatation of | | the abdominalaorta. There is no pelvic or abdominal lymphadenopathy.BLADDER: The | | bladder is unremarkable.UTERUS AND ADNEXA:The uterus is unremarkable there is a 2.7 cm | | probableprominent right ovarian follicle.BONES: There are no acute osseous | | abnormalities. There are no suspicious lyticor blastic bone lesions. Levoconvex | | scoliosis.OTHER: There is no free fluid. There is no free air.IMPRESSION: No CT | | evidence for an acute abdominal or pelvic process.Specifically, no evidence for | | appendicitis.No gastrointestinal tract obstruction or perforation.No urolithiasis or | | evidence of an obstructive uropathy.Probable prominent right ovarian follicle.Dictated | | and Signed by: Von Talley MD Electronically signed: 04/05/2020 4:17 PM | |PANCREAS: The pancreas is unremarkable. The pancreatic duct is not dilated. | | | |ADRENALS: No adrenal enlargement. No adrenal masses. | | | |KIDNEYS: The kidneys are symmetrically enhancing. There are no focal renal | |lesions. There is no nephrolithiasis. There is no obstructive uropathy. | | | |BOWEL: The gastrointestinal tract is unremarkable. There is no evidence for | |gastrointestinal tract obstruction. There is no evidence for appendicitis. | |There is no significant diverticular disease. | | | |VASCULATURE AND LYMPH NODES: There is no aneurysmal dilatation of the abdominal | |aorta. There is no pelvic or abdominal lymphadenopathy. | | | |BLADDER: The bladder is unremarkable. | | | |UTERUS AND ADNEXA:The uterus is unremarkable there is a 2.7 cm probable | |prominent right ovarian follicle. | | | |BONES: There are no acute osseous abnormalities. There are no suspicious lytic | |or blastic bone lesions. Levoconvex scoliosis. | | | |OTHER: There is no free fluid. There is no free air. | | | |IMPRESSION: | | | |No CT evidence for an acute abdominal or pelvic process. | | | |Specifically, no evidence for appendicitis. | | | |No gastrointestinal tract obstruction or perforation. | | | |No urolithiasis or evidence of an obstructive uropathy. | | | |Probable prominent right ovarian follicle. | | | | | |Dictated and Signed by: Von Talley MD | | Electronically signed: 04/05/2020 4:17 PM | + + + +---------+ + + | Performing | Address | City/State/Zipcode | Phone Number | | Organization | | | | + +---------+ + + | [facility] | | | | + +---------+ + + Lipase (04/05/2020 2:43 PM PDT) + + + + + + | Component | Value | Ref Range | Performed | Pathologist | | | | | At | Signature | + + + + + + | Lipase | 47Comment: New method in | 12 - 53 U/L | [facility] | | | | use as of January 21 | | [facility] | | | | 2019. Check reference | | MEDICAL | | | | range for changes.Some | | CENTER - | | | | analytes show | | LABORATORY | | | | significant variation | | | | | | from the previous | | | | | | method.It may be | | | | | | necessary to set a new | | | | | | baseline for this | | | | | | analyte. | | | | + + + + + + + + | Specimen | + + | Blood | + + + + + + + | Performing | Address | City/State/Zipcode | Phone Number | | Organization | | | | + + + + + | [facility] | [address] | [place] | [phone] | | [facility] | | [id number] | | | - LABORATORY | | | | + + + + + Comprehensive Metabolic Panel (04/05/2020 2:43 PM PDT) + + + + + + | Component | Value | Ref Range | Performed | Pathologist | | | | | At | Signature | + + + + + + | Na | 140 | 136 - 145 | [facility] | | | | | mmol/L | [facility] | | | | | | MEDICAL | | | | | | CENTER - | | | | | | LABORATORY | | + + + + + + | K | 3.5 | 3.4 - 5.1 | [facility] | | | | | mmol/L | [facility] | | | | | | MEDICAL | | | | | | CENTER - | | | | | | LABORATORY | | + + + + + + | Cl | 107 | 98 - 107 mmol/L | [facility] | | | | | | [facility] | | | | | | MEDICAL | | | | | | CENTER - | | | | | | LABORATORY | | + + + + + + | CO2 | 28 | 20 - 31 mmol/L | [facility] [...] + + + + | Glucose | 90 | 60 - 106 mg/dL | [facility] | | | | | | [facility] | | | | | | MEDICAL | | | | | | CENTER - | | | | | | LABORATORY | | + + + + + + | BUN | 8 (L) | 9 - 23 mg/dL | [facility] | | | | | | [facility] | | | | | | MEDICAL | | | | | | CENTER - | | | | | | LABORATORY | | + + + + + + | Creatinine | 0.76 | 0.55 - 1.02 | [facility] | | | | | mg/dL | [facility] | | | | | | MEDICAL | | | | | | CENTER - | | | | | | LABORATORY | | + + + + + + | eGFR, | >60Comment: GLOMERULAR | >=60 | [facility] | | | non- | FILTRATION | mL/min/1.73m2 | [facility] | | | [place] | RATE,ESTIMATED | | MEDICAL | | | | mL/min/1.84c5Ivnd than | | CENTER - | | [...] + + + + | Calcium | 9.6 | 8.7 - 10.4 | [facility] | | | | | mg/dL | [facility] | | | | | | MEDICAL | | | | | | CENTER - | | | | | | LABORATORY | | + + + + + + | Albumin | 4.4 | 3.2 - 4.8 g/dL | [facility] | | | | | | [facility] | | | | | | MEDICAL | | | | | | CENTER - | | | | | | LABORATORY | | + + + + + + | Bilirubin | 0.7 | 0.3 - 1.2 mg/dL | [facility] | | | Total | | | [facility] | | | | | | MEDICAL | | | | | | CENTER - | | | | | | LABORATORY | | + + + + + + | Total | 6.9 | 5.7 - 8.2 g/dL | [facility] | | | Protein | | | [facility] | | | | | | MEDICAL | | | | | | CENTER - | | | | | | LABORATORY | | + + + + + + | AST | 18 | 0 - 34 U/L | [facility] | | | | | | [facility] | | | | | | MEDICAL | | | | | | CENTER - | | | | | | LABORATORY | | + + + + + + | ALT | 21 | 10 - 49 U/L | [facility] | | | | | | [facility] | | | | | | MEDICAL | | | | | | CENTER - | | | | | | LABORATORY | | + + + + + + | Alkaline | 63 | 46 - 116 U/L | [facility] | | | Phosphatase | | | [facility] | | | | | | MEDICAL | | | | | | CENTER - | | | | | | LABORATORY | | + + + + + + | Globulin | 2.5 | 2.1 - 3.8 g/dL | [facility] | | | | | | [facility] | | | | | | MEDICAL | | | | | | CENTER - | | | | | | LABORATORY | | + + + + + + | Albumin/Angelica | 1.8 | 0.8 - 1.9 | [facility] | | | bulin Ratio | | | [facility] | | | | | | MEDICAL | | | | | | CENTER - | | | | | | LABORATORY | | + + + + + + | BUN/Creatin | 10.5 | | [facility] | | | ine Ratio | | | [facility] | | [...] + | [facility] | [address] | [place] | [phone] | | [facility] | | [id number] | | | - LABORATORY | | | | + + + + + CBC with Differential (04/05/2020 2:43 PM PDT) + + + + + + | Component | Value | Ref Range | Performed | Pathologist | | | | | At | Signature | + + + + + + | White Blood | 13.5 (H) | 4.0 - 11.0 K/uL | [facility] | | | Cells | | | [facility] | | | | | | MEDICAL | | | | | | CENTER - | | | | | | LABORATORY | | + + + + + + | Red Blood | 4.47 | 3.70 - 5.20 | [facility] | | | Cells | | M/uL | [facility] | | | | | | MEDICAL | | | | | | CENTER - | | | | | | LABORATORY | | + + + + + + | Hemoglobin | 13.9 | 11.5 - 16.0 | [facility] | | | | | g/dL | [facility] | | | | | | MEDICAL | | | | | | CENTER - | | | | | | LABORATORY | | + + + + + + | Hematocrit | 41.1 | 34.0 - 47.0 % | [facility] | | | | | | [facility] | | | | | | MEDICAL | | | | | | CENTER - | | | | | | LABORATORY | | + + + + + + | MCV | 91.9 | 83.0 - 101.0 fL | [facility] | | | | | | [facility] | | | | | | MEDICAL | | | | | | CENTER - | | | | | | LABORATORY | | + + + + + + | MCH | 31.1 | 28.0 - 35.0 pg | [facility] | | | | | | [facility] | | | | | | MEDICAL | | | | | | CENTER - | | | | | | LABORATORY | | + + + + + + | MCHC | 33.8 | 32.0 - 36.0 | [facility] | | | | | g/dL | [facility] | | | | | | MEDICAL | | | | | | CENTER - | | | | | | LABORATORY | | + + + + + + | RDW-CV | 12.5 | <15.0 % | [facility] | | | | | | [facility] | | | | | | MEDICAL | | | | | | CENTER - | | | | | | LABORATORY | | + + + + + + | RDW-SD | 42.1 | 35.1 - 46.3 fL | [facility] | | | | | | [facility] | | | | | | MEDICAL | | | | | | CENTER - | | | | | | LABORATORY | | + + + + + + | Platelet | 334 | 140 - 440 K/uL | [facility] | | | Count | | | [facility] | | | | | | MEDICAL | | | | | | CENTER - | | | | | | LABORATORY | | + + + + + + | MPV | 9.2 | 6.5 - 12.4 fL | [facility] | | | | | | [facility] | | | | | | MEDICAL | | | | | | CENTER - | | | | | | LABORATORY | | + + + + + + | % | 67.8 | 45.0 - 82.0 % | [facility] | | | Neutrophils | | | [facility] | | | | | | MEDICAL | | | | | | CENTER - | | | | | | LABORATORY | | + + + + + + | % | 21.5 | 20.0 - 45.0 % | [facility] | | | Lymphocytes | | | [facility] | | | | | | MEDICAL | | | | | | CENTER - | | | | | | LABORATORY | | + + + + + + | % Monocytes | 7.5 | 4.0 - 12.0 % | [facility] | | | | | | [facility] | | | | | | MEDICAL | | | | | | CENTER - | | | | | | LABORATORY | | + + + + + + | % | 2.5 | 0.0 - 5.0 % | [facility] | | | Eosinophils | | | [facility] | | [...] + + + | % Immature | 0.2Comment: For | 0.0 - 0.4 % | [facility] | | | Granulocyte | patients, use the | | [facility] | | | s | special reference ranges | | MEDICAL | | | | listed below. | | CENTER - | | | | | | LABORATORY | | + + + + + + | Absolute | 9.16 (H) | 1.80 - 8.50 | [facility] | | | Neutrophils | | K/uL | [facility] | | | | | | MEDICAL | | | | | | CENTER - | | | | | | LABORATORY | | + + + + + + | Absolute | 2.90 | 0.60 - 3.20 | [facility] | | | Lymphocytes | | K/uL | [facility] | | | | | | MEDICAL | | | | | | CENTER - | | | | | | LABORATORY | | + + + + + + | Absolute | 1.01 (H) | 0.00 - 1.00 | [facility] | | | Monocytes | | K/uL | [facility] | | | | | | MEDICAL | | | | | | CENTER - | | | | | | LABORATORY | | + + + + + + | Absolute | 0.34 | 0.00 - 0.40 | [facility] | | | Eosinophils | | K/uL | [facility] | | | | | | MEDICAL | | | | | | CENTER - | | | | | | LABORATORY | | + + + + + + | Absolute | 0.07 | 0.00 - 0.10 | [facility] | | | Basophils | | K/uL | [facility] | | | | | | MEDICAL | | | | | | CENTER - | | | | | | LABORATORY | | + + + + + + | Absolute | 0.03Comment: For | 0.00 - 0.03 | [facility] | | | Immature | patients, use | K/uL | [facility] | | | Granulocyte | the special reference | | MEDICAL | | | s | ranges listed below. | | CENTER - | | | | | | LABORATORY | | + + + + + + | % nRBC | 0 | 0 - 2 per 100 | [facility] | | | | | WBCs | [facility] | | | | | | MEDICAL | | | | | | CENTER - | | | | | | LABORATORY | | + + + + + + | Absolute | 0.00 | 0.00 - 0.01 | [facility] | | | nRBC | | K/uL | [facility] | [...] ranges: Trim. Absolute (K/uL) Percentage (%) | [facility] | | 1st 0.003-0.091 K/uL 0.0-0.9% 2nd 0.007-0.247 K/uL | [facility] | | 0.1-2.0% 3rd 0.018-0.456 K/uL 0.1-2.0% | - LABORATORY | + + + + + + + + | Performing | Address | City/State/Zipcode | Phone Number | | Organization | | | | + + + + + | [facility] | [address] | [place] | [phone] | | [facility] | | [address] | | | - LABORATORY | | | | + + + + + Urinalysis with Microscopic with Culture if Indicated (04/05/2020 2:19 PM PDT) + + + + + [...] + + + | pH, Urine | 8.0 | 5.0 - 8.0 | [facility] | | | | | | [facility] | | | | | | MEDICAL | | | | | | CENTER - | | | | | | LABORATORY | | + + + + + + | Specific | 1.009 | 1.001 - 1.030 | [facility] | | | Parks, | | | [facility] | | [...] + + + + | Squamous | 25-50 (A) | 0 - 2 /LPF | [...] + + | Urine | Urine Culture Not | | [facility] | | | Comment | Indicated | | [facility] | | | [...] + | [facility] | [address] | [place] | [phone] | | [facility] | | [address] | | | - LABORATORY | | | | + + + + + POCT Test, Urine, QUAL (04/05/2020 2:15 PM PDT) + + + + + + | Component | Value | Ref Range | Performed | Pathologist | | | | | At | Signature | + + + + + + | | Negative | Negative | | | | Test, | | | | | | Urine, POC | | | | | + + + + + + | Internal QC | Acceptable | Acceptable | | | + + + + + + | Specific | | | | | | Parks, | | | | | | POC | | | | | + + + + + + | Lot Number | [id number] | | | | + + + + + + | Expiration | 2020-11-27 | | | | | Date | | | | | + + + + + + + + | Specimen | + + | Urine | + + documented in this encounter Visit Diagnoses + + | Diagnosis | + + | Cyst of ovary, unspecified laterality - Primary | + + documented in this encounter Administered Medications + +--------+ +--------+------+------+ | Medication Order | MAR | Action | Dose | Rate | Site | | | Action | Date | | | | + +--------+ +--------+------+------+ | iohexol (OMNIPAQUE 350) 350 | Given | 04/05/20 | 85 mLs | | | | mg/mL injection 85 mL 85 mL, | | 20 3:38 | | | | | Intravenous, ONCE PRN, Other, for | | PM PDT | | | | | imaging CT study, Starting Tue | | | | | | | 04/05/20 at 1539, For 1 dose, | | | | | | | Radiology | | | | | | + +--------+ +--------+------+------+ +---+---+ | | | +---+---+ documented in this encounter"
--- OUTSIDE RECORDS SUMMARY | ~2020-09-05 | XMS | Encounter Summary ---
Demographics + + + | Address | [address] [facility] [address] [facility] | | | [place] [address] | + + + | Home Phone [...] Author + + + | Author | [facility] | | | and [place] | + + + | Organization | [facility] | | [...] | | | | | [place] [address] | | + + + + + | Concha Zeeshanletty | ECON | [address] | | | | | [place] [address] | | + + + + + Care Team Providers + +------+ + | Care Bone Char Operator Name | Role | Phone | + +------+ + | Leonid Jacobs MD | PCP | | + +------+ + Reason for Referral Evaluate & Treat (Routine) +--------+ + + + + + | Status | Reason | Specialty | Diagnoses / | Referred By | Referred To | | | | | Procedures | Contact | Contact | +--------+ + + + + + | Closed | Specialty | Orthopedic | Diagnoses | Merchant, | | | | Services | Surgery | Adolescent | Gonzalo Weir MD | | | | Required | | idiopathic | [address] | | | | | | scoliosis of | [address] | | | | | | | [place], | | | | | | thoracolumb[place] | [place] [address] | | | | | | r region | Phone: | | | | | | | [phone] | | | | | | | Fax: | | | | | | | [phone] | | +--------+ + + + + + Reason for Visit + + + | Reason | Comments | + + + | Follow-up | | + + + Encounter Details +--------+---------+ + + + | Date | Type | Department | Care Team | Description | +--------+---------+ + + + | 11/10/ | Office | [facility] [place] | Gonzalo Merchant, | Adolescent | | 2015 | Visit | PHYSIATRY [address] | MD [address] | idiopathic scoliosis | | | | [address] | [place] | of thoracolumbar | | | | [place] | [address] | region (Primary Dx) | | | | [address] | | | | | | [phone] | | | +--------+---------+ + + + [...] + + + | Blood Pressure | 110/67 | 11/10/2015 11:34 AM | | | | | PST | | + + + + + | Pulse | 83 | 11/10/2015 11:34 AM | | | | | PST | | + + + + + | Temperature | - | - | | + + + + + | Respiratory Rate | 18 | 11/10/2015 11:34 AM | | | | | PST | | + + + + + | Oxygen Saturation | - | - | | + + + + + | Inhaled Oxygen | - | - | | | Concentration | | | | + + + + + | Weight | 49 kg (108 lb) | 11/10/2015 11:34 AM | | | | | PST | | + + + + + | Height | 157.5 cm (5' 2") | 11/10/2015 11:34 AM | | | | | PST | | + + + + + | Body Mass Index | 19.75 | 11/10/2015 11:34 AM | | | | | PST | | + + + + + documented in this encounter Patient Instructions Patient Instructions Gonzalo Merchant MD - 11/10/2015 12:15 PM PSTOrthopedic spine consult has been requested at [facility] regarding the management of your scoliosis. Please take a copy of your x-rays on CD with you to your appointment. This can be obtained from the radiology department. They may opt for bracing of your spine. Continue exercises as outlined by prior therapy on a routine daily basis.Electronically sig marcial by Gonzalo Merchant MD at 11/10/2015 12:17 PM PST documented in this encounter Progress Notes Gonzalo Merchant MD - 11/10/2015 12:31 PM PST [facility] PHYSIATRY [address] [facility] [address] OFFICE NOTE GONZALO MERCHANT JR, MD Patient: RENNY OLIVER Admitting: MR #: [id number] LOC: PT TYPE: Adm Date: 11/10/2015 : 2000 PHYSICAL MEDICINE REHABILITATION PROGRESS NOTE DATE OF : 2000. PRIMARY CARE PROVIDER: Leonid Jacobs MD. DATE OF SERVICE: 11/10/2015. PATIENT IDENTIFICATION: A 15-year-old female with thoracolumbar scoliosis and mild back p ain. HISTORY OF PRESENT ILLNESS: The patient has history of scoliosis. She was seen 1 year ag o with diagnosis of scoliosis. At that time, her scoliosis was 18 degrees. She had repeat x-ray several days ago, per my previous request. She is here to follow up on monitoring o f her scoliosis. She indicates that she has some low back pain. She is currently working at [employer]. She indicates that her back pain is increased by activity such as standing and walking. Her mother, who is with her, reports that the patient has a tendency of slou angelito. She notes that there is increased curvature in the upper back. The patient admits that when she sits sometimes she has a tendency of tilting her back and leaning to one dir ection. She has previously had physical therapy. She has been given an exercise program i n the past. She is not currently doing it on a routine daily basis. She denies any change in height for more than a few years. She indicates that she has stopped growing up. She was measured at 5 feet 2 inches in 2013. She remains 5 feet 2 inches at this time. She denies any numbness, tingling or weakness in lower extremities. She denies any proble ms controlling bowel or bladder. She denies any shortness of breath. She describes her ba ck pain as mild on a verbal analog scale. She reports that her current back pain is a 0/10 on a numerical pain scale. She reports that back pain is intermittent. She localizes pa in into the region of the muscles of the low back when she has pain. Once again, she denie s having any pain at this time. The pain is brought on by physical activity such as standi ng at work. She denies any pain traveling from the back into the legs. She denies numbne ss, tingling or weakness in the legs. ALLERGIES: ROCHE FLAVORED VENLAFAXINE, SIMVASTATIN, OMEPRAZOLE, PENICILLIN, SULFA ANTIBI OTICS, FISH OIL, NITROFURAN DERIVATIVES. Adverse reactions to ASPIRIN. CURRENT MEDICATIONS: Wellbutrin 75 mg daily. Benadryl 25 mg every 6 hours as needed. Flonase nasal spray. Ibuprofen 200 mg as needed. Meclizine 25 mg as needed. Singulair 5 mg nightly. Zoloft 50 mg daily. Xulane patch 150-35 mcg per 24 hour patch. REVIEW OF SYSTEMS: She denies nausea, vomiting, diarrhea, constipation, fever, chills, sh ortness of breath, or chest pain. She denies skin breakdown or rash, denies incontinence o f bowel or bladder. She reports having migraine headaches at times. All other review of s ystems negative. PHYSICAL EXAMINATION: VITAL SIGNS: Heart rate 83, respiratory rate 18, blood pressure 110/67, weight 108 pounds , height 5 feet 2 inches. GENERAL: No acute distress, alert and oriented to person, place, time and situation, plea kendall, cheerful, humorous. HEENT: Extraocular muscles intact. Sclerae are clear. NECK: Normal range of motion. Spurling's test negative. Axial loading test negative. BACK: Asymmetric. There is posterior rotation of the thoracic ribs on the right. There is some rotation to her spine. There is an S-shaped scoliosis curvature, greatest degree o f curvature in the thoracolumbar zone. There is increased tone over the paraspinal muscles . No focal tenderness to palpation. Seated straight leg raise negative. Kanu's test negative. There is some pelvic tilt associated with her scoliosis. EXTREMITIES: Reveals n o clubbing, cyanosis or edema in lower extremities. NEUROLOGICAL: Exam demonstrates normal strength, sensation, reflexes, coordination in bot h lower extremities. Gait normal. DATABASE: Scoliosis x-rays 11/01/2015 imaging, personally reviewed by me, demonstrates an S-shaped scoliosis with approximately 23 degrees of curvature compared to 18 degrees of cu rvature seen on her prior study from 10/2014. ASSESSMENT: Adolescent idiopathic scoliosis of the thoracolumbar spine. ICD-10: M41.125. PLAN: Unfortunately, the patient's scoliosis has progressed beyond 20 degrees. We discus sed that the recommendation for scoliosis beyond 20 degrees often includes TLSO bracing, al so known as thoracolumbar sacral orthosis bracing. However, she is also not growing at thi s time. We usually expect scoliosis not to progress significantly once an individual is d one growing. We did discuss that there may be small amounts of growth that she will still have because of her age. We discussed that some people have small amounts of growth up int o their early 20s. At this time, I am requesting orthopedic consultation at [facility] in their spine-scoliosis cli kusum. I would like their input as to the best way to manage the patient's scoliosis. We di scussed that surgical intervention is felt to be unlikely. We discussed that surgical inte rvention is usually considered for scoliosis of 40 degrees or greater. We discussed that TLSO bracing is usually considered for scoliosis between 20 and 40 degrees. She had previo usly had physical therapy. She has been given a home exercise program. She is encouraged to continue these exercises routinely. She is encouraged to try to maintain an upright pos ture, limiting the slouching of her thoracic spine as much as possible. Currently, her mod erate scoliotic curvature of the spine is not having any effect on her neurologic function. At this time, I will let the doctors at [facility] take over management of her scoliosis. If t hey feel like no further treatment is warranted at this time, I would recommend once yearl y scoliosis monitoring up until she is in her early 20s. She may return to my clinic in e future as needed for scoliosis monitoring if necessary. Thank you for allowing me to be involved in the care of your patient. If you have any ques tions regarding the car regarding the care of the patient, please do not hesitate to call. GONZALO MERCHANT JR, MD Dictated by GONZALO MERCHANT JR, MD 11/10/2015 12:31:37 Transcribed on 11/11/2015 07:25:12 by noé job# [id number] Confirmation #: [id number] cc: LEONID JACOBS MD [facility], Gnozalo Weir MD - 11/10/2015 12:18 PM PSTThis office note has been dictated. Job ID# [id number] signed by Gonzalo Merchant MD at 11/10/2015 12:31 PM PSTdocumented in this encounter Plan of [...] | | | | | [place] [address] | | | | | | [phone] | | | | | | | | +--------+ + + + + | 09/22/ | Office | Physical Medicine | Gonzalo Merchant, | | | 2019 | Visit | and Rehabilitation | MD [address] | | | | | | [place] | | | | | | [address] | | | | | | | | +--------+ + + + + | 09/29/ | Virtual | Pain Medicine | Peggy Arreola | | 2019 | Office | | [address] | | | | Visit | | [address] | | | | | | [place], | | | | | | [place] [address] | | | | | | [phone] | | | | | | | | +--------+ + + + + | 01/24/ | Office | Family Medicine | Kurt Campbell, | | | 2020 | Visit | | [address] | | | | | | [place] | | | | | | [address] | | | | | | | | +--------+ + + + + + + +--------+ + + | Name | Type | Priori | Associated Diagnoses | Order Schedule | | | | ty | | | + + +--------+ + + | Orthopedic Surgery, | Outpatient | Routin | Adolescent | Ordered: 11/10/2015 | | External - AMB | Referral | e | idiopathic scoliosis | | | Referral | | | of thoracolumbar | | | | | | region | | + + +--------+ + + documented as of this encounter Visit Diagnoses + + | Diagnosis | + + | Adolescent idiopathic scoliosis of thoracolumbar region - Primary Scoliosis (and | | kyphoscoliosis), idiopathic | + + documented in this encounter
--- OUTSIDE RECORDS SUMMARY | ~2020-09-05 | XMS | Encounter Summary ---
Demographics + + + | Address | [address] | | | [place] [address] | + + + | Home Phone [...] | | | | | [place] [address] | | + + + + + | Concha Paulino | ECON | [address] | | | | | [place] [address] | | + + + + + Care Team Providers + +------+ + | Care Occupational Safety And Health Manager Name | Role | Phone | + +------+ + | Leonid Osorio MD | PCP | | + +------+ + Encounter Details +--------+ + + + + | Date | Type | Department | Care Team | Description | +--------+ + + + + | 08/03/ | Documentati | [facility] | Lee Ann Sanon | | | 2014 | on | for Congenital Heart | P, | | | | | Disease [address] | Electrocardiology | | | | | [address] | Tech | | | | | [place] | | | | | | [address] | | | | | | [phone] | | | +--------+ + + + [...] Notes Lee Ann Sanon, Electrocardiology Tech - 08/03/2015 1:59 PM PDTThe patient was enrol led in [employer] home monitoring. documented in this encounter Plan of Treatment [...] | | | | | [place] [address] | | | | | | [phone] | | | | | | | | +--------+ + + + + | 09/22/ | Office | Physical Medicine | Gonzalo Merchant, | | | 2019 | Visit | and Rehabilitation | [address] | | | | | | [place] | | | | | | [address] | | | | | | | | +--------+ + + + + | 11/05/ | Virtual | Pain Medicine | El[facility]co [address] | | | 2019 | Office | | [address] | | | | Visit | | [place] | | | | | | [place] | | | | | | [place] [address] | | | | | | [phone] | | | | | | | | +--------+ + + + + | 01/24/ | Office | Family Medicine | Kurt Campbell, | | | 2020 | Visit | | [address] | | | | | | [place] | | | | | | [address] | | | | | | | | +--------+ + + + + documented as of this encounter Visit Diagnoses Not on filedocumented in this encounter"
--- OUTSIDE RECORDS SUMMARY | ~2020-09-05 | XMS | Encounter Summary ---
Demographics + + + | Address | [address] | | | [place] [address] | + + + | Home Phone | | + + + | Preferred Language | Unknown | + + + | Marital Status | Single | + + + | Worship Affiliation | [phone] | + + + | Race | Unknown | + + + | Ethnic Group | Not or | + + + Author + + + | Author | [facility] | | | and [place] | + + + | Organization | [facility] | | | and [...] | | | | | [place] [address] | | + + + + + | Concha Paulino | ECON | [address] | | | | | [place] [address] | | + + + + + Care Team Providers + +------+ + | Care Place Change Roof Bolter Name | Role | Phone | + +------+ + | Leonid Osorio MD | PCP | | + +------+ + Reason for Visit +--------+ + | Reason | Comments | +--------+ + | Cough | | +--------+ + Encounter Details +--------+ + + + + | Date | Type | Department | Care Team | Description | +--------+ + + + + | 02/14/ | Emergency | [facility] | Tyson Romo | Respiratory | | 2018 | | [facility] | MD Don [address] | infection (Primary | | | | CENTER [address] | [address] [place] | Dx); Pneumonia of | | | | [place], [place] | [place] [address] | right lower lobe due | | | | [address] | [phone] | to infectious | | | | [phone] | | organism | +--------+ + + + + Social [...] + + + | Blood Pressure | 121/83 | 02/14/2018 11:27 PM | | | | | PDT | | + + + + + | Pulse | 121 | 02/14/2018 11:28 PM | | | | | PDT | | + + + + + | Temperature | 38.1 C (100.5 F) | 02/14/2018 10:20 PM | | | | | PDT | | + + + + + | Respiratory Rate | 20 | 02/14/2018 11:28 PM | | | | | PDT | | + + + + + | Oxygen Saturation | 98% | 02/14/2018 11:28 PM | | | | | PDT | | + + + + + | Inhaled Oxygen | - | - | | | Concentration | | | | + + + + + | Weight | 45.4 kg (100 lb) | 02/14/2018 7:13 PM | | | | | PDT | | + + + + + | Height | - | - | | + + + + + | Body Mass Index | 18.29 | 12/29/2017 7:15 PM | | | | | PST [...] documented as of this encounter Discharge Instructions AttachmentsThe following attachments cannot be sent through Care Everywhere.Pneumonia, Malena ott (Danish)documented in this encounter Medications at Time of Discharge + + + +---------+ + + | Medication | Sig | Dispensed | Refills | Start | End Date | | | | | | Date | | + + + +---------+ + + | acetaminophen | Take 2 tablets by | 32 | 0 | 02/15/20 | | | (TYLENOL) 325 mg | mouth every 6 hours | tablet | | 18 | 8 | | tablet | as needed for Pain | | | | | | | for up to 4 days. | | | | | + + + +---------+ + + | albuterol (PROAIR | Inhale 2 puffs into | 1 | 0 | 02/15/20 | | | HFA) 90 mcg/puff | the lungs every 4 | Inhaler | | 18 | 8 | | inhaler | hours as needed for | | | | | | | Wheezing for up to | | | | | | | 10 days. | | | | | + + + +---------+ + + | azithromycin | Take 2 tablets by | 6 | 0 | 02/15/20 | | | (ZITHROMAX) 250 mg | mouth on day 1, and | tablet | | 18 | 8 | | tablet | 1 tablet by mouth | | | | | | | every day | | | | | + + + +---------+ + + | cefdinir (OMNICEF) | Take 1 capsule by | 20 | 0 | 02/15/20 | | | 300 mg capsule | mouth 2 times daily | capsule | | 18 | 8 | | | for 10 days. | | | | | + [...] predniSONE | Take 2 tablets by | 6 | 0 | 02/15/20 | | | (DELTASONE) 20 mg | mouth Daily for 3 | tablet | | 18 | 8 [...] documented as of this encounter ED Notes Tiffany Yepez RRT - 02/14/2018 10:07 PM PDTPt only wanted half of her breathing tx as javier raya began to feel heart palpitations.Electronically signed by Tiffany Yepez RRT at 8 10:08 PM Tyson Lisa MD - 02/14/2018 7:58 PM PDT [facility] Renny Saravia Emergency Department Encounter Note [address] [place] [id number] PCP:Leonid Osorio MD [phone] CHIEF COMPLAINT: Chief Complaint Patient presents with Cough ED Room: ED09 [facility] Renny Saravia is a 18 y.o. 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 PAST MEDICAL & SURGICAL HISTORY Patient Active Problem List Diagnosis Date Noted Second hand smoke exposure 09/23/2017 Palpitation 08/10/2015 Note Last Updated: 08/10/2015 Strong Family history of SVT needing ablation Adolescent idiopathic scoliosis of thoracolumbar region 03/09/2013 Migraine CONTUSION OF TOE 03/08/2011 Past Surgical History: Procedure Laterality Date DENTAL SURGERY CURRENT MEDICATIONS Discharge Medication List as of 02/14/2018 23:29 CONTINUE these medications which have NOT CHANGED Details diphenhydrAMINE (BENADRYL) 25 mg tablet Take 25 mg by mouth every 6 hours as needed for Itc sonia.Historical Med fluticasone (FLONASE) 50 mcg/nasal spray 1 spray by Nasal route Daily.Historical Med hydrOXYzine (ATARAX) 50 MG tablet Take 25 mg by mouth as needed.Historical Med ibuprofen (ADVIL,MOTRIN) 600 MG tablet Take 1 tablet by mouth every 6 hours as needed for P ain.Disp-40 tablet, R-0, Print sertraline (ZOLOFT) 25 mg tablet Take 1 tablet by mouth Daily.Disp-30 tablet, R-5, Print ALLERGIES Allergies Allergen Reactions Rey Flavor Hives [...] Male control/ protection: Yes Other Topics Concern Not on file Social History Narrative Lives with bio mom and m-grandmother REVIEW OF SYSTEMS As in history of present illness. A 10 system review was otherwise negative. PHYSICAL EXAM VITAL SIGNS: (first vital signs):Temp: (!) 38.2 C (100.7 F) Pulse: 149 Resp: 22 SpO2: 9 5 % BP: 131/85 Body mass index is 18.29 kg/m. Constitutional: Moderately uncomfortable female patient. HEENT: Atraumatic, PERRL, Oropharynx benign. Neck: Supple with full range of motion. No JVD, no lymphadenopathy, no meningismus and no cervical spine tenderness to palpation or step-off noted. Chest: Good air movement bilaterally. No wheezes, No, rales. Cardiovascular: Normal S1 S2 Abdomen: Soft, nontender., no rebound, guarding, or masses., bowel tones normal. and no pu lsatile masses. Back: Within normal limits, no CVA tenderness and no midline thoracic or lumbar spinal tend erness Extremities: Nontender. No lower extremity edema, no calf asymmetry. Present distal pulse s. Skin: Warm, Dry, No rashes Neurologic: Alert & oriented. No focal deficits, Speech normal, gait not tested Psychiatric: Normal mood, affect and judgement. EKG 12-lead EKG shows no STEMI LABS Results for orders placed or performed during the hospital encounter of 02/14/18 Culture, Blood Result Value Ref Range Culture No growth: Monitored continually by instrument for 5 days Culture, Blood Result Value Ref Range Culture No growth: Monitored continually by instrument for 5 days Influenza A and B RNA, NAAT Result Value Ref Range Influenza A PCR Negative Negative Influenza B PCR Negative Negative RSV RNA, NAAT Result Value Ref Range RSV Negative Negative, Invalid CBC with Differential Result Value Ref Range WBC 17.6 (H) 4.0 - 11.0 K/uL RBC 4.96 3.70 - 5.20 M/uL Hgb 14.2 11.5 - 16.0 g/dL Hct 43.6 34.0 - 47.0 % MCV 87.9 83.0 - 101.0 fL MCH 28.6 28.0 - 35.0 pg MCHC 32.6 32.0 - 36.0 g/dL RDW-CV 13.0 <15.0 % Platelet Count 337 140 - 440 K/uL MPV 7.9 fL % Neutrophils 82.0 45.0 - 82.0 % % Lymphocytes 7.3 (L) 20.0 - 45.0 % % Monocytes 9.7 4.0 - 12.0 % % Eosinophils 0.5 0.0 - 5.0 % % Basophils 0.5 0.0 - 1.0 % Absolute Neutrophils 14.50 (H) 1.80 - 8.50 K/uL Absolute Lymphocytes 1.30 0.60 - 3.20 K/uL Absolute Monocytes 1.70 (H) 0.00 - 1.00 K/uL Absolute Eosinophils 0.10 0.00 - 0.40 K/uL Absolute Basophils 0.10 0.00 - 0.10 K/uL Comprehensive Metabolic Panel Result Value Ref Range NA 135 (L) 136 - 149 mmol/L K 3.5 3.5 - 5.1 mmol/L CL 103 98 - 109 mmol/L CO2 23 (L) 24 - 31 mmol/L ANION GAP 9 3 - 16 mmol/L GLUCOSE 116 (H) 70 - 109 mg/dL BUN 6 (L) 7 - 18 mg/dL Creatinine, Serum/Plasma 0.82 0.60 - 1.30 mg/dL eGFR if not >60 >=60 mL/min/1.73m2 CALCIUM 8.9 8.3 - 10.5 mg/dL ALBUMIN 3.9 3.2 - 5.0 g/dL BILIRUBIN TOTAL 0.7 0.1 - 1.5 mg/dL Total protein 7.8 6.0 - 7.8 g/dL AST 20 10 - 42 U/L ALT 17 6 - 45 U/L ALK PHOS 80 40 - 110 U/L GLOBULIN 3.9 (H) 2.1 - 3.8 g/dL Albumin/Globulin ratio 1.0 0.8 - 2.0 BUN/CREA 7.3 Lactic Acid Result Value Ref Range LACTATE 1.3 0.5 - 2.2 mmol/L Urinalysis with Microscopic with Culture if Indicated Result Value Ref Range COLOR Straw Light Yellow, Yellow, Straw CLARITY Clear Clear PH UA 6.0 5.0 - 8.0 Specific [place] 1.003 1.001 - 1.030 PROTEIN UA Negative Negative BLOOD UA Small (A) Negative GLUCOSE UA Negative Negative KETONES UA Trace (A) Negative BILIRUBIN UA Negative Negative NITRITE UA Negative Negative LEUKOCYTES ESTERASE UA Negative Negative UROBILINOGEN UA Negative 0.2 mg/dL, 1.0 mg/dL, Negative WBC UA 0-2 0 - 2 /HPF RBC UA 0-2 0 - 2 /HPF SQUAMOUS EPITHELIAL UA 0-2 0 - 2 /LPF BACTERIA UA Negative Negative /HPF MUCUS UA Present (A) Negative /LPF URINE COMMENT Urine Culture Not Indicated , Serum, Qual Result Value Ref Range HCG SCREEN,SERUM Negative Negative Extra Green Top Tube Result Value Ref Range Extra Green Top Tube Done Extra Blue Top Tube Result Value Ref Range Extra Blue Top Tube Done ECG 12 lead Result Value Ref Range VENTRICULAR RATE EKG 150 BPM ATRIAL RATE 150 BPM P-R INTERVAL 120 ms QRS DURATION 68 ms Q-T INTERVAL 324 ms Q-T INTERVAL (CORRECTED) 511 ms P WAVE AXIS 51 degrees QRS AXIS 50 degrees T AXIS 70 degrees INTERPRETATION TEXT Sinus tachycardia Possible Biatrial enlargement Low voltage QRS Nonspecific ST and T wave abnormality :cannot exclude ischemia Borderline ECG No previous ECGs available Confirmed by YING VASQUEZ MD ([id number]) on 02/15/2018 7:59:07 AM IMAGING STUDIES (X-Rays interpreted by ED Physician) CXR unremarkable CT concerning for pneumonia ED COURSE & MEDICAL DECISION MAKING Pertinent Labs & Imaging studies were reviewed along with EMS notes and [facility] record s if applicable. (See chart for details) Medications and Allergy list reviewed. Nurses note and old records were reviewed The patient was seen and examined, The patient was placed on the monitor and monitored. An iv was placed. The patient was given a normal saline bolus. Screening labs are ordered and are unremarkable except for leukocytosis. Initially I have choice is Levaquin however she refuses this and prefers alternative therapy therefore she st arted on a course of azithromycin and cefdinir for her pneumonia. She is hemodynamically st able with a good O2 sat without rash or difficulty or distress. She is a good candidate for home therapy she is provided strict return precautions. The patient remained hemodynamically stable within normal limits during their ED course, and sat comfortably in their bed in no apparent distress. The patient was counseled about their results and workup including all incidental findings and the need for out patient follow up to which they verbalized their understanding. The patient was counseled about the importance of medical recommendations today and the dangers including harm or of non adherence to the plan. They verbalize their understanding of today's plan and agree with it. They were counseled that emergency services are available to them 17/06 and to return to the ED immediately if symptoms return. The patient was given follow up. They were given further strict, thorough, actionable return precautions to which they verbalized their understanding. The patient's questions were answered and the patient agreed with the plan. The patient was discharged in good stable condition. Last Set of Vital Signs: Temp: (!) 38.1 C (100.5 F) Pulse: 121 Resp: 20 SpO2: 98 % BP: 121/83 FINAL IMPRESSION ICD-10-CM ICD-9-CM 1. Respiratory infection J98.8 519.8 2. Pneumonia of right lower lobe due to infectious organism (HCC) J18.1 486 Follow-up Information Leonid Osorio MD. Specialty: Pediatrics Why: return if symptoms persist worsen or change. Contact information: [address] [place] [address] Discharge Medication List as of 02/14/2018 23:29 START taking these medications Details acetaminophen (TYLENOL) 325 mg tablet Take 2 tablets by mouth every 6 hours as needed for P ain for up to 4 days.Disp-32 tablet, R-0, Print albuterol (PROAIR HFA) 90 mcg/puff inhaler Inhale 2 puffs into the lungs every 4 hours as n eeded for Wheezing for up to 10 days.Disp-1 Inhaler, R-0, Print azithromycin (ZITHROMAX) 250 mg tablet Take 2 tablets by mouth on day 1, and 1 tablet by [facility] every dayDisp-6 tablet, R-0, Print cefdinir (OMNICEF) 300 mg capsule Take 1 capsule by mouth 2 times daily for 10 days.Disp-20 capsule, R-0, Print EPINEPHrine auto-injector 0.3 mg/0.3 mL injection Inject 0.3 mLs into the muscle as needed for Anaphylaxis.Disp-1 each, R-0, Print predniSONE (DELTASONE) 20 mg tablet Take 2 tablets by mouth Daily for 3 days.Disp-6 tablet, R-0, Print Administrations This Visit acetaminophen (TYLENOL) tablet 650 mg Admin Date 02/14/2018 Action Given Dose 650 mg Route Oral Administered By Kate Blevins, RN albuterol 5 mg/mL concentrated nebulizer solution 5 mg Admin Date 02/14/2018 Action Given Dose 5 mg Route Nebulization Administered By Tiffany Yepez, OSBALDO albuterol-ipratropium (DUONEB) 2.5-0.5 mg/3 mL nebulizer solution 3 mL Admin Date 02/14/2018 Action Given Dose 3 mL Route Nebulization Administered By Tiffany Yepez, INSTRUMENT REPAIR SPECIALIST azithromycin (ZITHROMAX) 500 mg in sodium chloride 0.9% 250 mL IVPB Admin Date 02/14/2018 Action New Bag Dose 500 mg Rate 255 mL/hr Route Intravenous Administered By Kate Blevins RN cefdinir (OMNICEF) capsule 300 mg Admin Date 02/14/2018 Action Dispense to Home Dose 300 mg Route Oral Administered By Kate Blevins RN iohexol (OMNIPAQUE 350) 350 mg/mL injection 70 mL Admin Date 02/14/2018 Action Given Dose 70 mL Route Intravenous Administered By Rani Rose, Technologist methylPREDNISolone sodium succinate (solu-MEDROL) 62.5 mg/mL injection 62.5 mg Admin Date 02/14/2018 Action Given Dose 62.5 mg Route Intravenous Administered By Kate Blevins RN sodium chloride 0.9% (NS) bolus 1,500 mL Admin Date 02/14/2018 Action New Bag Dose 1500 mL Rate 1,500 mL/hr Route Intravenous Administered By Kate Blevins RN sodium chloride 0.9% (NS) bolus 30 mL Admin Date 02/14/2018 Action Push Dose 30 mL Rate 1,800 mL/hr Route Intravenous Administered By Rani Rose, Technologist sodium chloride 0.9% (NS) bolus 500 mL Admin Date 02/14/2018 Action New Bag Dose 500 mL Rate 500 mL/hr Route Intravenous Administered By Kate Blevins RN Portions of this chart were created with [employer] voice recognition software. Inadvertent so und alike substitutions may be present and are unintentional Tyson Romo MD 02/16/18 1715 azan Martines RN - 02/14/2018 7:12 PM PDTWorsening cough and flu like symptoms since being treate d here 2 days ago. documented in this encounter Plan of Treatment [...] [place] | | | | | | [place] [address] | | | | | | [phone] | | | | | | | | +--------+ + + + + | 09/22/ | Office | Physical Medicine | Gonzalo Merchant, | | | 2019 | Visit | and Rehabilitation | [address] | | | | | | [place] | | | | | | [address] | | | | | | | | +--------+ + + + + | 09/29/ | Virtual | Pain Medicine | Peggy Arreola | | 2019 | Office | | [address] | | | | Visit | | [address] | | | | | | [place], | | | | | | [place] [address] | | | | | | [phone] | | | | | | | | +--------+ + + + + | 01/24/ | Office | Family Medicine | Kurt Campbell, | | | 2020 | Visit | | DO [address] | | | | | | [place] | | | | | | [address] | | | | | | | | +--------+ + + + + documented as of this encounter Procedures + +--------+ + + + | Procedure Name | Priori | Date/Time | Associated Diagnosis | Comments | | | ty | | | | + +--------+ + + + | CT ANGIOGRAM | STAT | 02/14/2018 | | Results for this | | PULMONARY | | 10:00 PM | | procedure are in the | | | | PDT | | results section. | + +--------+ + + + | XR CHEST AP PORTABLE | STAT | 02/14/2018 | | Results for this | | | | 9:29 PM | | procedure are in the | | | | PDT | | results section. | + +--------+ + + + | CULTURE, BLOOD | STAT | 02/14/2018 | | Results for this | | | | 8:26 PM | | procedure are in the | | | | PDT | | results section. | + +--------+ + + + | URINALYSIS WITH | Routin | 02/14/2018 | | Results for this | | MICROSCOPIC WITH | e | 8:17 PM | | procedure are in the | | CULTURE IF INDICATED | | PDT | | results section. | + +--------+ + + + | INFLUENZA A AND B | STAT | 02/14/2018 | | Results for this | | RNA, NAAT | | 8:17 PM | | procedure are in the | | | | PDT | | results section. | + +--------+ + + + | RSV RNA, NAAT | Routin | 02/14/2018 | | Results for this | | | e | 8:16 PM | | procedure are in the | | | | PDT | | results section. | + +--------+ + + + | EXTRA GREEN TOP TUBE | Routin | 02/14/2018 | | Results for this | | | e | 8:16 PM | | procedure are in the | | | | PDT | | results section. | + +--------+ + + + | EXTRA BLUE TOP TUBE | Routin | 02/14/2018 | | Results for this | | | e | 8:16 PM | | procedure are in the | | | | PDT | | results section. | + +--------+ + + + | CULTURE, BLOOD | STAT | 02/14/2018 | | Results for this | | | | 8:16 PM | | procedure are in the | | | | PDT | | results section. | + +--------+ + + + | CBC WITH | STAT | 02/14/2018 | | Results for this | | DIFFERENTIAL | | 8:16 PM | | procedure are in the | | | | PDT | | results section. | + +--------+ + + + | , SERUM, | STAT | 02/14/2018 | | Results for this | | QUAL | | 8:16 PM | | procedure are in the | | | | PDT | | results section. | + +--------+ + + + | LACTIC ACID | STAT | 02/14/2018 | | Results for this | | | | 8:16 PM | | procedure are in the | | | | PDT | | results section. | + +--------+ + + + | COMPREHENSIVE | STAT | 02/14/2018 | | Results for this | | METABOLIC PANEL | | 8:16 PM | | procedure are in the | | | | PDT | | results section. | + +--------+ + + + | ECG 12 LEAD | STAT | 02/14/2018 | | Results for this | | | | 7:26 PM | | procedure are in the | | | | PDT | | results section. | + +--------+ + + + documented in this encounter Results CT Angiogram Pulmonary (02/14/2018 10:00 PM PDT) + + | Specimen | + + | | + + + + + | Narrative | Performed At | + + + | CT ANGIOGRAM PULMONARY CLINICAL INFORMATION: Cough. | [facility] | | COMPARISON: XR CHEST PA AND LATERAL dated 12/29/2017; CHEST TWO VIEWS | | | dated 01/28/2015; CHEST TWO VIEWS dated 05/10/2012 PROCEDURE: | | | Thin-section images of the entire chest after the administration of 70 | | | ml Omnipaque 350 intravenous contrast. 3D MIP thin slab images and | | | 2D multiplanar reconstructions performed. FINDINGS: PULMONARY | | | ARTERIES: No pulmonary embolism. RIGHT VENTRICLE TO LEFT VENTRICLE | | | RATIO: Not applicable. (Maximum short axis diameter on axial image. | | | Applicable only when pulmonary embolism present. Abnormal greater | | | than or equal to 0.9.) CHEST Lungs, Pleura and Airways: There is | | | consolidation involving the posterior basal segment of the right | | | lower lobe. No large pleural effusions or pneumothorax. Central | | | airways are patent. Mediastinum: No significant pericardial, great | | | vessel or esophageal abnormality. No mediastinal mass. Lymph Nodes: | | | No adenopathy. Upper Abdomen: No significant abnormality in the | | | visualized upper abdomen. BODY WALL Soft Tissues: The soft | | | tissues of the chest wall are unremarkable. Bones: No acute fracture | | | or vertebral end plate destruction. No lytic or blastic lesion. | | | IMPRESSION- Right posterior basal pneumonia. No evidence of | | | acute pulmonary embolism. A teleradiology preliminary report | | | was provided by MD Brea, [facility], 02/14/2018 10:36:34 PM Dictated | | | and Signed by: Kanu Sanchez MD Electronically signed: 02/15/2018 | | | 11:29 AM | | + + + + + | Procedure Note | + + | Shaun, Rad Results In - 02/15/2018 11:32 AM PDT | | CT ANGIOGRAM PULMONARY | | | | CLINICAL INFORMATION: | | Cough. | | | | COMPARISON: | | XR CHEST PA AND LATERAL dated 12/29/2017; CHEST TWO VIEWS dated 01/28/2015; | | CHEST TWO VIEWS dated 05/10/2012 | | | | PROCEDURE: | | Thin-section images of the entire chest after the administration of 70 | | ml Omnipaque 350 intravenous contrast. 3D MIP thin slab images and 2D | | multiplanar reconstructions performed. | | | | FINDINGS: | | PULMONARY ARTERIES: No pulmonary embolism. | | | | RIGHT VENTRICLE TO LEFT VENTRICLE RATIO: Not applicable. (Maximum short | | axis diameter on axial image. Applicable only when pulmonary embolism | | present. Abnormal greater than or equal to 0.9.) | | | | CHEST | | Lungs, Pleura and Airways: There is consolidation involving the | | posterior basal segment of the right lower lobe. No large pleural | | effusions or pneumothorax. Central airways are patent. | | Mediastinum: No significant pericardial, great vessel or esophageal | | abnormality. No mediastinal mass. | | Lymph Nodes: No adenopathy. | | Upper Abdomen: No significant abnormality in the visualized upper | | abdomen. | | | | BODY WALL | | Soft Tissues: The soft tissues of the chest wall are unremarkable. | | Bones: No acute fracture or vertebral end plate destruction. No lytic | | or blastic lesion. | | | | IMPRESSION- | | | | Right posterior basal pneumonia. | | | | No evidence of acute pulmonary embolism. | | | | | | A teleradiology preliminary report was provided by MD Brea, [facility], 02/14/2018 | | 10:36:34 PM | | | | Dictated and Signed by: Kanu Sanchez MD | | Electronically signed: 02/15/2018 11:29 AM | + + + +---------+ + + | Performing | Address | City/[facility] | Phone Number | | Organization | | | | + +---------+ + + | [facility] | | | | + +---------+ + + XR Chest AP Portable (02/14/2018 9:29 PM PDT) + + | Specimen | + + | | + + + + + | Narrative | Performed At | + + + | CLINICAL INFORMATION: COUGH. COMPARISON: 02/06/2009. | [facility] | | FINDINGS: Portable frontal chest radiograph Lungs: Focal | | | airspace consolidation at the right upper hilar region. No pleural | | | effusion or pneumothorax. Heart/mediastinum: Cardiac silhouette | | | is of normal size. Central pulmonary vasculature has a normal | | | appearance. Bones: No acute osseous abnormality appreciated. | | | Sigmoid curvature of the spine. IMPRESSION - Right infrahilar | | | airspace opacity may represent pneumonia in the appropriate clinical | | | setting. Dictated and Signed by: Kanu Sanchez MD | | | Electronically signed: 02/14/2018 10:43 PM | | + + + + + | Procedure Note | + + | Arnaldo Dunn Results In - 02/14/2018 10:46 PM PDT | | CLINICAL INFORMATION: COUGH. | | | | COMPARISON: 02/06/2009. | | | | FINDINGS: | | Portable frontal chest radiograph | | | | Lungs: Focal airspace consolidation at the right upper hilar region. No pleural | | effusion or pneumothorax. | | | | Heart/mediastinum: Cardiac silhouette is of normal size. Central pulmonary | | vasculature has a normal appearance. | | | | Bones: No acute osseous abnormality appreciated. Sigmoid curvature of the | | spine. | | | | IMPRESSION - Right infrahilar airspace opacity may represent pneumonia in the | | appropriate clinical setting. | | | | Dictated and Signed by: Kanu Sanchez MD | | Electronically signed: 02/14/2018 10:43 PM | + + + +---------+ + + | Performing | Address | City/State/Zipcode | Phone Number | | Organization | | | | + +---------+ + + | [facility] | | | | + +---------+ + + Culture, Blood (02/14/2018 8:26 PM PDT) + + + + + + | Component | Value | Ref Range | Performed | Pathologist | | | | | At | Signature | + + + + + + | Culture | No growth after 5 days | | [facility] | | | [facility]. | | [facility] | | [facility] | [facility] - | | | | | | [facility]ATORY | | + + + + + + + + | Specimen | + + | Blood - Peripheral | | blood specimen | | (specimen) | + + + + + + + | Performing | Address | City/State/Zipcode | Phone Number | | Organization | | | | + + + + + | [facility] | [address] | [place] | [phone] | | [facility] | | [address] | | | - LABORATORY | | | | + + + + + Influenza A and B RNA, NAAT (02/14/2018 8:17 PM PDT) + + + + + + | Component | Value | Ref Range | Performed | Pathologist | | | | | At | Signature | + + + + + + | Influenza A | Negative | Negative | [facility] | | | PCR | | | [facility] | | [facility] | [facility] | | | | | | [facility] - | | | | | | LABORATORY | | + + + + + + | Influenza B | Negative | Negative | [facility] | | | [facility] | | | [facility] | | | | | | [facility] | | | | | | [facility] - | | | | | | LABORATORY | | + + + + + + + + | Specimen | + + | Respiratory - Both | | anterior nares (body | | structure) | + + + + + + + | Performing | Address | City/State/Zipcode | Phone Number | | Organization | | | | + + + + + | [facility] | [address] | [place] | [phone] | | [facility] | | [address] | | | - LABORATORY | | | | + + + + + Urinalysis with Microscopic with Culture if Indicated (02/14/2018 8:17 PM PDT) + + + + + + | Component | Value | Ref Range | Performed | Pathologist | | | | | At | Signature | + + + + + + | Color, | Straw | Light Yellow, | [facility] | | | Urine | | Yellow, Straw | [facility] | | | | | [...] + + + + | Specific | 1.003 | 1.001 - 1.030 | [facility] | | | [place], | | | [facility] | | [...] + + + + | Blood, | Small (A) | Negative | [facility] [...] + + + + | Ketones, | Trace (A) | Negative | [facility] | | [...] + + + + | Squamous | 0-2 | 0 - 2 /LPF | [facility] [...] | Comment | Indicated | | [facility] | | | [...] [address] | [place] | [phone] | | [facility] | | [address] | | | - LABORATORY | | | | + + + + + RSV RNA, NAAT (02/14/2018 8:16 PM PDT) + + + + + + | Component | Value | Ref Range | Performed | Pathologist | | | | | At | Signature | + + + + + + | RSV | Negative | Negative, | [facility] | | | | | Invalid | [facility] | | | | | [facility] | | | | | | CENTER - | | | | | | LABORATORY | | + + + + + + + + | Specimen | + + | Respiratory | + + + + + + + | Performing | Address | City/State/Zipcode | Phone Number | | Organization | | | | + + + + + | [facility] | [address] | [place] | [phone] | | [facility] | | [address] | | | - LABORATORY | | | | + + + + + Extra Blue Top Tube (02/14/2018 8:16 PM PDT) + +-------+ + + + | Component | Value | Ref Range | Performed | Pathologist | | | | | At | Signature | + +-------+ + + + | Extra Blue | Done | | [facility] | | | Top Tube | | | [facility] | | [...] [address] | [place] | [phone] | | [facility] | | [address] | | | - LABORATORY | | | | + + + + + Extra Green Top Tube (02/14/2018 8:16 PM PDT) + +-------+ + + + | Component | Value | Ref Range | Performed | Pathologist | | | | | At | Signature | + +-------+ + + + | Extra Green | Done | | [facility] | | [...] [address] | [place] | [phone] | | [facility] | | [address] | | | - LABORATORY | | | | + + + + + Culture, Blood (02/14/2018 8:16 PM PDT) + + + + + + | Component | Value | Ref Range | Performed | Pathologist | | | | | At | Signature | + + + + + + | Culture | No growth after 5 days | | [facility] | | | | incubation. | | [facility] | | | | | | MEDICAL | | | | | | CENTER - | | | | | | LABORATORY | | + + + + + + + + | Specimen | + + | Blood - Peripheral | | blood specimen | | (specimen) | + + + + + + + | Performing | Address | City/State/Zipcode | Phone Number | | Organization | | | | + + + + + | [facility] | [address] | [place] | [phone] | | [facility] | | [address] | | | - LABORATORY | | | | + + + + + , Serum, Qual (02/14/2018 8:16 PM PDT) + + + + + + | Component | Value | Ref Range | Performed | Pathologist | | | | | At | Signature | + + + + + + | hCG Screen, | Negative | Negative | [facility] | | | Serum | | | [facility] | | [...] [address] | [place] | [phone] | | [facility] | | [address] | | | - LABORATORY | | | | + + + + + Lactic Acid (02/14/2018 8:16 PM PDT) + +-------+ + + + | Component | Value | Ref Range | Performed | Pathologist | | | | | At | Signature | + +-------+ + + + | Lactate | 1.3 | 0.5 - 2.2 | [facility] | | | | | [...] + | [facility] | [address] | [place] | [phone] | | [facility] | | [address] | | | - LABORATORY | | | | + + + + + Comprehensive Metabolic Panel (02/14/2018 8:16 PM PDT) + + + + + + | Component | Value | Ref Range | Performed | Pathologist | | | | | At | Signature | + + + + + + | Na | 135 (L) | 136 - 149 | [facility] | | | | | mmol/L | [facility] | | | | | | [facility] | | | | | | CENTER - | | | | | | LABORATORY | | + + + + + + | K | 3.5 | 3.5 - 5.1 | [facility] | [...] + + + + | CO2 | 23 (L) | 24 - 31 mmol/L | [facility] | | | | | | [facility] | [facility] | [facility] | | | | | | [facility] - | | | | | | LABORATORY | | + + + + + + | Anion Gap | 9 | 3 - 16 mmol/L | [facility] | | | | | | [facility] | | | | | | [facility]ICAL | | | | | | CENTER - | | | | | | LABORATORY | | + + + + + + | Glucose | 116 (H) | 70 - 109 mg/dL | [facility] | | | | | | [facility] | | | | | | [facility] | | | | | | CENTER - | | | | | | LABORATORY | | + + + + + + | BUN | 6 (L) | 7 - 18 mg/dL | [facility] | | | | | | [facility] | | | | | | [facility]ICAL | | | | | | CENTER - | | | | | | LABORATORY | | + + + + + + | Creatinine | 0.82 | 0.60 - 1.30 | [facility] | | | | | mg/dL | [facility] | | | | | | MEDICAL | | | | | | CENTER - | | | | | | LABORATORY | | + + + + + + | eGFR, | >60Comment: GLOMERULAR | >=60 | [facility] | | | non- | FILTRATION | mL/min/1.73m2 | [facility] | | | [place] | RATE,ESTIMATED | | MEDICAL | | | | mL/min/1.61a6Rmgl than | | CENTER - | | [...] + + + + | Calcium | 8.9 | 8.3 - 10.5 | [facility] | | | | | mg/dL | [facility] | | | | | | MEDICAL | | | | | | CENTER - | | | | | | LABORATORY | | + + + + + + | Albumin | 3.9 | 3.2 - 5.0 g/dL | [facility] | | | | | | [facility] | | | | | | [facility]ICAL | | | | | | CENTER - | | | | | | LABORATORY | | + + + + + + | Bilirubin | 0.7 | 0.1 - 1.5 mg/dL | [facility] | | | Total | | | [facility] | | | | | | MEDICAL | | | | | | CENTER - | | | | | | LABORATORY | | + + + + + + | Total | 7.8 | 6.0 - 7.8 g/dL | [facility] | | | Protein | | | [facility] | | | | | | MEDICAL | | | | | | CENTER - | | | | | | LABORATORY | | + + + + + + | AST | 20 | 10 - 42 U/L | [facility] | | | | | | [facility] | | | | | | [facility]ICAL | | | | | | CENTER - | | | | | | LABORATORY | | + + + + + + | ALT | 17 | 6 - 45 U/L | [facility] | | | | | | [facility] | | | | | | [facility] | | | | | | CENTER - | | | | | | LABORATORY | | + + + + + + | Alkaline | 80 | 40 - 110 U/L | [facility] | | | Phosphatase | | | [facility] | | | | | | MEDICAL | | | | | | CENTER - | | | | | | LABORATORY | | + + + + + + | Globulin | 3.9 (H) | 2.1 - 3.8 g/dL | [...] + + + + | BUN/Creatin | 7.3 | | [facility] | | | ine [...] [address] | [place] | [phone] | | [facility] | | [address] | | | - LABORATORY | | | | + + + + + CBC with Differential (02/14/2018 8:16 PM PDT) + + + + + + | Component | Value | Ref Range | Performed | Pathologist | | | | | At | Signature | + + + + + + | White Blood | 17.6 (H) | 4.0 - 11.0 K/uL | [facility] | | | Cells | | | [facility] | | | | | | MEDICAL | | | | | | CENTER - | | | | | | LABORATORY | | + + + + + + | Red Blood | 4.96 | 3.70 - 5.20 | [facility] | | | Cells | | M/uL | [facility] | | | | | | MEDICAL | | | | | | CENTER - | | | | | | LABORATORY | | + + + + + + | Hemoglobin | 14.2 | 11.5 - 16.0 | [facility] | | | | | g/dL | [facility] | | [facility] | | | MEDICAL | | | | | | CENTER - | | | | | | LABORATORY | | + + + + + + | Hematocrit | 43.6 | 34.0 - 47.0 % | [facility] | | | | | | [facility] | | | | | | [facility]ICAL | | | | | | CENTER - | | | | | | LABORATORY | | + + + + + + | MCV | 87.9 | 83.0 - 101.0 fL | [facility] | | | | | | [facility] | | [facility] | [facility] | | | | | | CENTER - | | | | | | LABORATORY | | + + + + + + | MCH | 28.6 | 28.0 - 35.0 pg | [facility] [...] + + + + | RDW-CV | 13.0 | <15.0 % | [facility] | | | | | | [facility] | | | | [facility] | | | | | | CENTER - | | | | | | LABORATORY | | + + + + + + | Platelet | 337 | 140 - 440 K/uL | [facility] | | | Count | | | [facility] | | | | | | MEDICAL | | | | | | CENTER - | | | | | | LABORATORY | | + + + + + + | MPV | 7.9 | fL | [facility] | | | | | | [facility] | | | | | | [facility] | | | | | | CENTER - | | | | | | LABORATORY | | + + + + + + | % | 82.0 | 45.0 - 82.0 % | [facility] | | | Neutrophils | | | [facility] | | | | | | MEDICAL | | | | | | CENTER - | | | | | | LABORATORY | | + + + + + + | % | 7.3 (L) | 20.0 - 45.0 % | [facility] | | | Lymphocytes | | | [facility] | | | | | | [facility] | | | | | | CENTER - | | | | | | LABORATORY | | + + + + + + | % Monocytes | 9.7 | 4.0 - 12.0 % | [facility] | | | | | [facility] | [facility] | [facility] | | | | | | C[facility] - | | | | | | LABORATORY | | + + + + + + | % | 0.5 | 0.0 - 5.0 % | [facility] | | | Eosinophils | | | [facility] | | [...] + + + + | Absolute | 14.50 (H) | 1.80 - 8.50 | [facility] | | | Neutrophils | | K/uL | [facility] | | | | | | MEDICAL | | | | | | CENTER - | | | | | | LABORATORY | | + + + + + + | Absolute | 1.30 | 0.60 - 3.20 | [facility] | | | Lymphocytes | | K/uL | [facility] | | | | | | MEDICAL | | | | | | CENTER - | | | | | | LABORATORY | | + + + + + + | Absolute | 1.70 (H) | 0.00 - 1.00 | [facility] | | | Monocytes | | K/uL | [facility] | | | | | | MEDICAL | | | | | | CENTER - | | | | | | LABORATORY | | + + + + + + | Absolute | 0.10 | 0.00 - 0.40 | [facility] | [...] [address] | [place] | [phone] | | [facility] | | [address] | | | - LABORATORY | | | | + + + + + ECG 12 lead (02/14/2018 7:26 PM PDT) + + + + + + | Component | Value | Ref Range | Performed | Pathologist | | | | | At | Signature | + + + + + + | VENTRICULAR | 150 | BPM | [facility] | | | RATE EKG | | | | | + + + + + + | ATRIAL RATE | 150 | BPM | [facility] | | + + + + + + | P-R | 120 | ms | [facility] | | | INTERVAL | | | | | + + + + + + | QRS | 68 | ms | [facility] | | | DURATION | | | | | + + + + + + | Q-T | 324 | ms | [facility] | | | INTERVAL | | | | | + + + + + + | Q-T | 511 | ms | [facility] | | | INTERVAL | | | | | | (CORRECTED) | | | | | + + + + + + | P WAVE AXIS | 51 | degrees | [facility] | | + + + + + + | QRS AXIS | 50 | degrees | [facility] | | + + + + + + | T AXIS | 70 | degrees | [facility] | | + + + + + + | INTERPRETAT | Sinus | | [facility] | | | ION TEXT | tachycardiaPossible | | | | | | Biatrial enlargementLow | | | | | | voltage QRSNonspecific | | | | | | ST and T wave | | | | | | abnormality :cannot | | | | | | exclude | | | | | | ischemiaBorderline ECGNo | | | | | | previous ECGs | | | | | | availableConfirmed by | | | | | | YING VASQUEZ MD ([id number]) | | | | | | on 02/15/2018 7:59:07 AM | | | | + + + [...] + | Diagnosis | + + | Respiratory infection - Primary Other diseases of respiratory system, not elsewhere | | classified | + + | Pneumonia of right lower lobe due to infectious organism | + + documented in this encounter Administered Medications + +--------+ +--------+------+------+ | Medication Order | MAR | Action | Dose | Rate | Site | | | Action | Date | | | | + +--------+ +--------+------+------+ | acetaminophen (TYLENOL) tablet | Given | 02/15/20 | 650 mg | | | | 650 mg 650 mg, Oral, ONCE, Fri | | 18 10:22 | | | | | 02/14/18 at 2140, For 1 dose | | PM PDT | | | | + +--------+ +--------+------+------+ +---+---+ | | | +---+---+ + +-------+ +------+---+---+ | albuterol 5 mg/mL concentrated | Given | 02/15/20 | 5 mg | | | | nebulizer solution 5 mg 5 mg, | | 18 10:00 | | | | | Nebulization, RT Once, Fri | | PM PDT | | | | | 02/14/18 at 2145, For 1 dose, RT | | | | | | | will administer., | | | | | | + +-------+ +------+---+---+ +---+---+ | | | +---+---+ + +-------+ +-------+---+---+ | albuterol-ipratropium (DUONEB) | Given | 02/15/20 | 3 mLs | | | | 2.5-0.5 mg/3 mL nebulizer | | 18 10:00 | | | | | solution 3 mL 3 mL, | | PM PDT | | | | | Nebulization, RT Once, Fri | | | | | | | 02/14/18 at 2145, For 1 dose | | | | | | + +-------+ +-------+---+---+ +---+---+ | | | +---+---+ + +---------+ +--------+-------+---+ | azithromycin (ZITHROMAX) 500 mg | New Bag | 02/15/20 | 500 mg | 255 | | | in sodium chloride 0.9% 250 mL | | 18 10:24 | | mL/hr | | | IVPB 500 mg, Intravenous, | | PM PDT | | | | | Administer over 1 Hours, ONCE, | | | | | | | 02/14/18 at 2200, For 1 dose, | | | | | | | Keep in refrigerator., | | | | | | | Indications: Respiratory Tract | | | | | | | Infection | | | | | | + +---------+ +--------+-------+---+ +---+---+ | | | +---+---+ + + + +--------+---+---+ | cefdinir (OMNICEF) capsule 300 | Dispense | 02/15/20 | 300 mg | | | | mg 300 mg, Oral, ONCE, Fri | to Home | 18 11:36 | | | | | 02/14/18 at 2215, For 1 dose, | | PM PDT | | | | | Indications: Pneumonia | | | | | | + + + +--------+---+---+ +---+---+ | | | +---+---+ + +-------+ +--------+---+---+ | iohexol (OMNIPAQUE 350) 350 | Given | 02/15/20 | 70 mLs | | | | mg/mL injection 70 mL 70 mL, | | 18 9:56 | | | | | Intravenous, ONCE PRN, Other, for | | PM PDT | | | | | CT Imaging Study, Starting Fri | | | | | | | 02/14/18 at 2156, For 1 dose, | | | | | | | Radiology | | | | | | + +-------+ +--------+---+---+ +---+---+ | | | +---+---+ + +-------+ +---------+---+---+ | methylPREDNISolone sodium | Given | 02/15/20 | 62.5 mg | | | | succinate (solu-MEDROL) 62.5 | | 18 10:22 | | | | | mg/mL injection 62.5 mg 62.5 mg, | | PM PDT | | | | | Intravenous, ONCE, Sat02/14/18 | | | | | | | at 2145, For 1 dose, Mix with 2 | | | | | | | mL provided diluent to make 62.5 | | | | | | | mg/mL., | | | | | | + +-------+ +---------+---+---+ +---+---+ | | | +---+---+ + +---------+ +--------+-------+---+ | sodium chloride 0.9% (NS) bolus | New Bag | 02/15/20 | 1,500 | 1500 | | | 1,500 mL 1,500 mL, Intravenous, | | 18 8:15 | mLs | mL/hr | | | Administer over 1 Hours, ONCE, | | PM PDT | | | | | 02/14/18 at 2005, For 1 dose | | | | | | + +---------+ +--------+-------+---+ +---+---+ | | | +---+---+ + +------+ +--------+-------+---+ | sodium chloride 0.9% (NS) bolus | Push | 02/15/20 | 30 mLs | 1800 | | | 30 mL 30 mL, Intravenous, | | 18 9:56 | | mL/hr | | | Administer over 1 Minutes, ONCE | | PM PDT | | | | | PRN, for CT Imaging Study, | | | | | | | Starting 02/14/18 at 2156, For | | | | | | | 1 dose, Radiology | | | | | | + +------+ +--------+-------+---+ +---+---+ | | | +---+---+ + +---------+ +---------+-------+---+ | sodium chloride 0.9% (NS) bolus | New Bag | 02/15/20 | 500 mLs | 500 | | | 500 mL 500 mL, Intravenous, | | 18 9:44 | | mL/hr | | | Administer over 1 Hours, ONCE, | | PM PDT | | | | | 02/14/18 at 2145, For 1 dose | | | | | | + +---------+ +---------+-------+---+ +---+---+ | | | +---+---+ documented in this encounter"
--- OUTSIDE RECORDS SUMMARY | ~2020-09-05 | XMS | Encounter Summary ---
Demographics + + + | Address | [address] | | | [place] [address] | + + + | Home Phone [...] + | Author | [facility] | | | and [place] | + + + | Organization | [facility] | | | and [...] | | | | | [place] [address] | | + + + + + | Concha Paulino | ECON | [address] | | | | | [place] [address] | | + + + + + Care Team Providers + +------+ + | Care [facility] House Worker Name | Role | Phone | + +------+ + | Ishan Campbell DO | PCP | | + +------+ + Reason for Visit + + + | Reason | Comments | + + + | Cough | | + + + | Fever (9 Weeks To 74 | | | Years) | | + + + Encounter Details +--------+ + + + + | Date | Type | Department | Care Team | Description | +--------+ + + + + | 02/16/ | Emergency | [facility] | Lexa Alston MD | Exacerbation of | | 2019 | | [facility] | [address] | asthma, unspecified | | | | CENTER [address] | [place] | asthma severity, | | | | [place] | [id number] | unspecified whether | | | | [address] | | persistent (Primary | | | | [phone] | | Dx) | +--------+ + + [...] + + + | Blood Pressure | 103/72 | 02/17/2020 3:58 PM | | | | | PDT | | + + + + + | Pulse | 79 | 02/17/2020 3:58 PM | | | | | PDT | | + + + + + | Temperature | 36.9 C (98.4 F) | 02/17/2020 2:24 PM | | | | | PDT | | + + + + + | Respiratory Rate | 20 | 02/17/2020 2:24 PM | | | | | PDT | | + + + + + | Oxygen Saturation | 100% | 02/17/2020 3:58 PM | | | | | PDT | | + + + + + | Inhaled Oxygen | - | - | | | Concentration | | | | + + + + + | Weight | 48.5 kg (107 lb) | 02/17/2020 2:24 PM | | | | | PDT | | + + + + + | Height | - | - | | + + + + + | Body Mass Index | 19.57 | 01/29/2020 7:33 PM | | | | | PST [...] Discharge Instructions Instructions Lexa Alston MD - 02/17/2020Return for any worsening symptoms, fevers, chills , difficulty breathing. Follow-up with your primary care provider. AttachmentsThe following attachments cannot be sent through Care Everywhere.Asthma, Acute ( Adult) ([place])documented in this encounter Medications at Time of [...] into | 18 g | 0 | 01/29/20 | | | HFA) 90 mcg/puff | the lungs every 6 | | | 20 | 0 | | inhalerIndications: | hours as needed [...] predniSONE | Take 2 tablets by | 10 | 0 | 02/17/20 | | | (DELTASONE) 20 mg | mouth Daily for 5 | tablet | | 20 | 0 | | tablet | days. | | [...] encounter ED Notes Lexa Alston MD - 02/17/2020 2:34 PM PDTFormatting of this note might be different from t he original. [facility] Renny Saravia Emergency Department Encounter Note [address] [place] [id number] PCP:Ishan Campbell DO [phone] CHIEF COMPLAINT: Chief Complaint Patient presents with Cough Fever (9 Weeks To 74 Years) ED Room: ED12/ED12 HPI Renny Saravia is a 20 y.o. female who presents to the Emergency Department with cough and shortness of breath. Patient feels like she has been using her inhaler more often. She de nies any current fevers or chills but did have them earlier in the week. Has been having co nstipation. Feels like she is dehydrated. Has been able to tolerate liquids. Nonproductiv e cough. States that she feels similar to previous episodes of asthma exacerbations. She h as been on prednisone multiple times. She feels like she is having an asthma exacerbation. She had a negative respiratory viral panel and influenza 2 weeks ago. 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 Constitutional: female patient, no acute distress HEENT: Atraumatic, PERRL, Oropharynx benign. Neck: Supple with full range of motion. Respiratory: On room air, no retractions Cardiovascular: Normal S1 S2 Abdomen: Soft, nontender, no CVA tenderness Extremities: Nontender. Skin: Warm, Dry, No rashes Neurologic: Alert & oriented. No focal deficits., Speech normal, gait not tested Psychiatric: Normal mood, affect and judgement. EKG 12-lead EKG shows LABS Results for orders placed or performed in visit on 01/29/20 Influenza A and B RNA, NAAT Result Value Ref Range Influenza A PCR Negative Negative, Test not performed Influenza B PCR Negative Negative, Test not performed IMAGING STUDIES (X-Rays interpreted by ED Physician) CLINICAL INFORMATION: COUGH FEVER (9 WEEKS TO 74 YEARS). COMPARISON: 01/29/2020. FINDINGS: Portable frontal chest radiograph Lungs: No focal airspace disease, pleural effusion, or pneumothorax. Heart/mediastinum: Cardiac silhouette is of normal size. Central pulmonary vasculature has a normal appearance. Bones: No acute osseous abnormality appreciated. Sigmoid curvature of the thoracolumbar spine. IMPRESSION: No acute disease. Dictated and Signed by: Kanu Sanchez MD Electronically signed: 02/17/2020 3:26 PM ED COURSE & MEDICAL DECISION MAKING Pertinent Labs & Imaging studies were reviewed along with EMS notes and assisted record s if applicable. (See chart for details) Medications and Allergy list reviewed. Nurses note and old records were reviewed The patient was seen and examined, Patient is a 20-year-old female who presents with cough and shortness of breath. She feels like she has been using her inhaler more often. Here her vital signs are stable. She did not appear in any acute respiratory distress. She does feel like previous bouts of asthma e xacerbations. She will be started on antibiotics. Chest x-ray was unremarkable. Last Set of Vital Signs: Temp: 36.9 C (98.4 F) Pulse: 81 Resp: 20 SpO2: 97 % BP: 117/85 FINAL IMPRESSION ICD-10-CM ICD-9-CM 1. Exacerbation of asthma, unspecified asthma severity, unspecified whether persistent J45. 901 493.92 Follow-up Information Schedule an appointment as soon as possible for a visit with Ishan Campbell DO. Specialty: Family Medicine Contact information: [address] [place] [id number] LOCATED WITHIN [facility]. Specialty: Emergency Medicine Why: If symptoms worsen Contact information: [address] [place] [phone] New Prescriptions PREDNISONE (DELTASONE) 20 MG TABLET Take 2 tablets by mouth Daily for 5 days. Lexa Alston MD 02/17/20 1537 avis, Abhinav Weir RN - 01/24 2:25 PM PDTPt has had a cough for 2-3 weeks. Low grade fever a month ago. Pt was flu swabbed and it came back negative 2 weeks ago. States she started to get a fever again the past week. Has not taken antipyretics today. Hx of asthma and has been using inhaler. States she sometimes gets SOB d ocumented in this encounter Plan of Treatment +--------+ [...] | | | | | | [place] [address] | | | | | | [phone] | | | | | | | | +--------+ + + + + | 09/22/ | Office | Physical Medicine | Gonzalo Merchant, | | | 2019 | Visit | and Rehabilitation | [address] | | | | | | [place] | | | | | | [address] | | | | | | | | +--------+ + + + + | 09/29/ | Virtual | Pain Medicine | Peggy Arreola | | | 2019 | Office | | [address] | | | | Visit | | [place] | | | | | | [place], | | | | | | [place] [address] | | | | | | [phone] | | | | | | | | +--------+ + + + + | 01/24/ | Office | Family Medicine | Ishan Campbell, | | | 2020 | Visit | | DO [address] | | | | | | [place] | | | | | | [address] | | | | | | | | +--------+ + + + + + +------+--------+ + + | Name | Type | Priori | Associated Diagnoses | Date/Time | | | | ty | | | + +------+--------+ + + | ED INFORMATION | FRANDY | Routin | | 02/17/2020 2:17 PM | | EXCHANGE | | e | | PDT | + +------+--------+ + + documented as of this encounter Procedures + +--------+ + + + | Procedure Name | Priori | Date/Time | Associated Diagnosis | Comments | | | ty | | | | + +--------+ + + + | XR CHEST AP PORTABLE | STAT | 02/17/2020 | | Results for this | | | | 3:24 PM | | procedure are in the | | | | PDT | | results section. | + +--------+ + + + | ED INFORMATION | Routin | 02/17/2020 | | | | EXCHANGE | e | 2:17 PM | | | | | | PDT | | | + +--------+ + + + +---+--------+ | | | | | Proced | | | ure | | | Note - | | | Shaun, | | | Lab In | | | | | | Hlseve | | | n - | | | 03/25/ | | | 2020 | | | 2:18 | | | PM PDT | | [...] | | | FICATI | | | ON?[birth year] | | | [birth year] | | | 0 | | | 14:16? | | | HUDDLE | | | SON, | | | RENNY | | | M?MRN: | | | | | | [id number] | | | [id number] | | | riteri | | | [...] | | | lags | | | [place] | | | ED | | | Dispar | | | ity | | | Measur | | | e - | | | [place] | | | has | | | [...] | | | s. | | | [place] | | | | | | Health [...] | | | By: | | | [place] | | | | | | Health [...] | | | int | | | Mar | | | [...] | | | or | | | circular tank cooper | | | Mario Alberto 7, | [...] | | | or | | | Mar | | | 25, | | | 2019 | | | Provid | | | ence | | | [facility] | [place] | | | [place] | | | Emerge | | | ncy | | | lab | | | follow | | | up | | | | | | Follow | | | up | | | Medica | | | l | | | Proble | | | m | | | Endocr | | | ine | | | disord | | | er, | | | unspec | | | ified | | | | | | Recent [...] | | | t | | | Tomeka | | | [...] | | | otify/ | | | [id number] | | | [id number] | | | [id number] | | | [id number] | | | [id number] | | | [id number] | | | | | | PLEASE [...] this encounter Results XR Chest AP Portable (02/17/2020 3:24 PM PDT) + + | Specimen | + + | | + + + + + | Impressions | Performed At | + + + | No acute disease. Dictated and Signed by: Kanu Sanchez MD | [facility] | | Electronically signed: 02/17/2020 3:26 PM | | + + + + + + | Narrative | Performed At | + + + | CLINICAL INFORMATION: COUGH FEVER (9 WEEKS TO 74 YEARS). | [facility] | | COMPARISON: 01/29/2020. FINDINGS: Portable frontal chest | | | radiograph Lungs: No focal airspace disease, pleural effusion, or | | | pneumothorax. Heart/mediastinum: Cardiac silhouette is of normal | | | size. Central pulmonary vasculature has a normal appearance. | | | Bones: No acute osseous abnormality appreciated. Sigmoid curvature of | | | the thoracolumbar spine. | | + + + + + | Procedure Note | + + | Shaun, Arnaldo Results In - 02/17/2020 3:29 PM PDT | | CLINICAL INFORMATION: COUGH | | FEVER (9 WEEKS TO 74 YEARS). | | | | COMPARISON: 01/29/2020. | | | | FINDINGS: | | Portable frontal chest radiograph | | | | Lungs: No focal airspace disease, pleural effusion, or pneumothorax. | | | | Heart/mediastinum: Cardiac silhouette is of normal size. Central pulmonary | | vasculature has a normal appearance. | | | | Bones: No acute osseous abnormality appreciated. Sigmoid curvature of the | | thoracolumbar spine. | | | | IMPRESSION: | | No acute disease. | | | | Dictated and Signed by: Kanu Sanchez MD | | Electronically signed: 02/17/2020 3:26 PM | + + + +---------+ + [...] - | | Primary | + + documented in this encounter"
--- OUTSIDE RECORDS SUMMARY | ~2020-09-05 | XMS | Encounter Summary ---
Demographics + + + | Address | [address] | | | [place] [address] | + + + | Home Phone [...] Author + + + | Author | [facility] | | | and [place] | + + + | Organization | [facility] | | [...] | | | | | [place] [address] | | + + + + + | Concha Paulino | ECON | [address] | | | | | [place] [address] | | + + + + + Care Team Providers + +------+ + | Care Radiophone Operator Name | Role | Phone | + +------+ + PCP | Unavailable | + +------+ + Encounter Details +--------+ + + + + | Date | Type | Department | Care Team | Description | +--------+ + + + + | 08/03/ | Hospital | [facility] | [place], | | | 2008 | Encounter | [facility] | Don Weir MD [address] | | | | | [place] [address] | [address] [facility] | | | | | [place], [place] | [place] [address] | | | | | [address] | [phone] | | | | | [phone] | | | +--------+ + + + [...] | | | | | [place] [address] | | | | | | [phone] | | | | | | | | +--------+ + + + + | 09/22/ | Office | Physical Medicine | Gonzalo Merchant, | | | 2019 | Visit | and Rehabilitation | [address] | | | | | | [place] | | | | | | [address] | | | | | | | | +--------+ + + + + | 09/29/ | Virtual | Pain Medicine | Peggy Arreola | | | 2019 | Office | | [address] | | | | Visit | | [place] | | | | | | [place] | | | | | | [place] [address] | | | | | | [phone] | | | | | | | [...]
--- OUTSIDE RECORDS SUMMARY | ~2020-09-05 | XMS | Encounter Summary ---
Demographics + + + | Address | [address] | | | [place] [address] | + + + | Home Phone | | + + + | Preferred Language | Unknown | + + + | Marital Status | Single | + + + | Lutheran Affiliation | [phone] | + + + [...] | | | | | [place] [address] | | + + + + + | Concha Paulino | ECON | [address] | | | | | [place] [address] | | + + + + + Care Team Providers + +------+ + | Care Streetcar Repairer Helper Name | Role | Phone | + +------+ + | Leonid Osorio MD | PCP | | + +------+ + Reason for Visit + + + | Reason | Comments | + + + | New Patient | tachycardia for last 2 years, happens at rest or activity, | | | happens weekly or 2-3x/mo | + + + Evaluate & Treat (Routine) +--------+--------+ + + + + | Status | Reason | Specialty | Diagnoses / | Referred By | Referred To | | | | | Procedures | Contact | Contact | +--------+--------+ + + + + | Closed | | Cardiology | Diagnoses | [place], [facility] | | | | | Tachycardia | MD Leonid | [facility] | | | | | | [address] | Congenital | | | | | | [facility] | Heart Disease | | | | | | [place] | [address] | | | | | | [address] | [address] | | | | | | Phone: | [phone] | | | | | | [phone] | [place] | | | | | | Fax: | [address] | | | | | | [phone] | Phone: | | | | | | | [phone] | | | | | | | Fax: | | | | | | | [phone] | +--------+--------+ + + + + Encounter Details +--------+ + + + + | Date | Type | Department | Care Team | Description | +--------+ + + + + | 08/10/ | Off-Site | [facility] | Cat Wilson | Tachycardia (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 | Visit | for Congenital Heart | MD [place] [address] | Dx); Palpitation; | | | | Disease [address] | [address], | Family history of | | | | [address] | [place] [address] | hypercholesterolemia | | | | [place] | [phone] | | | | | [address] | | | | | | [phone] | | | +--------+ + + + [...] + + + | Blood Pressure | 100/62 | 08/10/2015 11:58 AM | | | | | PDT | | + + + + + | Pulse | 78 | 08/10/2015 11:58 AM | | | | | PDT | | + + + + + | Temperature | - | - | | + + + + + | Respiratory Rate | - | - | | + + + + + | Oxygen Saturation | 97% | 08/10/2015 11:58 AM | | | | | PDT | | + + + + + | Inhaled Oxygen | - | - | | | Concentration | | | | + + + + + | Weight | 49.2 kg (108 lb 8 | 08/10/2015 11:58 AM | | | | oz) | PDT | | + + + + + | Height | 160 cm (5' 2.99") | 08/10/2015 11:58 AM | | | | | PDT | | + + + + + | Body Mass Index | 19.22 | 08/10/2015 11:58 AM | | | | | PDT | | + + + + + documented in this encounter Progress Notes Cat Wilson MD - 08/10/2015 1:16 PM PDT [facility] Cong[facility]ital [facility] Pt. Name/Age/: Renny Saravia / 15 y.o. / 2000 Date of Visit: 08/10/2015 Primary Care Physician: Leonid Osorio Reason for Visit: For cardiac evaluation inpatient who has been expressing episodes of palpitation for last 2 years or so. Assessment & Plan: Palpitation This young lady is having episodes of frequent palpitation lasting anywhere from 15 seconds to the lowest has last about 45 minutes and this was about 3 weeks ago where she was seen i n emergency room, but no EKG was done, she has had this for last 2 years or so, and she has had an echocardiogram done at [facility] which was normal indicating structurally normal heart, an d attempt at the Holter monitor or event monitor did not show any arrhythmia because of malf unction according to the mother, so at that today's evaluation shows that her electrical ech o is normal but from the history it looks like she might be having episodes of SVT, so I rec ommended to placing her on an event monitor for next month or so and hopefully within next m onth she will have at least few of these episodes, and based on the findings will decide wha t Treatment she will need, she does have very strong family history of arrhythmias several m embers of her family has had ablation or is being treated for with medication, so based on zion durham's findings I would recommend no special restriction as far as activities are concerned, she does not need any bacterial endocarditis prophylaxis, would like to see her back in abo ut a month or so we will review the result of the monitor and decide final plans. Also philip use of strong family history of hyperlipidemia and coronary artery disease I recommended to get a fasting lipid profile done within next few weeks or so. Additional Plans: Return in about 1 month (around 09/09/2015). Orders Placed This Encounter Procedures Lipid Panel ECG 12 lead Medications after this visit: New Prescriptions No medications on file History of Present Illness: Renny is a 15 y.o. female seen today for: For cardiac evaluation, this young lady has been having these episodes of palpitation for last 2 years or so, it happens off and on without any real pattern it can happen several times a day or it might happen every 2 months or so, if last anywhere from 15 seconds to up to 45 minutes or so, last episode happened about 3 we eks ago where she was taken via ambulance to emergency room but no recording of this rhythm was done on her way today emergency room, or several minutes while she was in the emergency room with palpitation, when they did put on a monitor she had gone back to normal sinus rhyt , she has had workup done about 2 years ago at [facility], and an attempt of event monitor was not successful because there was malfun ction of the monitor and she has not had any further follow up, at the present time she is o n Zoloft and Wellbutrin but no other medication, she denies any drugs or alcohol she does sm brittaney occasional marijuana, and she does not use any energy drinks according to her otherwise she has been quite healthy young girl. There is a very strong family history of arrhythmias and cardiac disease including congenital heart disease and acquired heart disease specially hyperlipidemia and coronary artery disease, she has had many members of her family through ablation. She also has had one of her sister at the age of 9 and autopsy was done and no diagnosis was made at autopsy. Past Medical History: Reviewed and updated Past Medical History Diagnosis Date Depression Asthma Migraine Kidney cysts right Depression Surgical History: Reviewed and updated Past Surgical History Procedure Laterality Date Dental surgery Allergies: Allergies Allergen Reactions Rey Flavor Hives Nystatin Swelling Omeprazole Shortness Of Breath Penicillins Hives and Nausea And Vomiting Sulfa Antibiotics Shortness Of Breath Venlafaxine Anaphylaxis Aspirin Other (See Comments) fever Fish Oil Whooping cough injection/ extreme reaction Nitrofuran Derivatives Nausea And Vomiting Penicillins Medications prior to visit: Outpatient Medications buPROPion (WELLBUTRIN) 75 mg tablet (Taking) Take 75 mg by mouth Daily. diphenhydrAMINE (BENADRYL) 25 mg tablet Take 25 mg by mouth every 6 hours as needed for It angelito. fluticasone (FLONASE) 50 mcg/nasal spray 1 spray by Nasal route Daily. ibuprofen (ADVIL, MOTRIN) 200 mg tablet Take 200 mg by mouth every 6 hours as needed. meclizine (ANTIVERT) 25 mg tablet Take 1 tablet by mouth 3 times daily as needed. montelukast (SINGULAIR) 5 mg chewable tablet Take 5 mg by mouth nightly. sertraline (ZOLOFT) 25 mg tablet (Taking) Take 50 mg by mouth Daily. XULANE 150-35 MCG/24HR patch (Taking) Family History: Family History Problem Relation Age of Onset High blood pressure Mother Asthma Mother Other (See Comment) Mother emphysema Mental illness Mother bipolar Mental illness Father depression Colon cancer Father 42 Other (See Comment) Father angina High blood pressure Maternal Grandmother Heart surgery Maternal Grandmother 4x bypass Other (See Comment) Maternal Grandmother pulmonary embolism Heart defect Maternal Grandmother hole in heart Cardiomyopathy Other m-ggm Other (See Comment) Maternal Aunt ablation Other (See Comment) Other ablation Other (See Comment) Other ablation Other (See Comment) Maternal Grandfather 47 alcoholism/rheumatic fever Collagen disease Neg Hx Congential Heart Disease Neg Hx Deafness Neg Hx Heart Transplant Neg Hx High cholesterol Neg Hx Marfan syndrome Neg Hx Premature CHD Neg Hx Seizures Neg Hx Sudden Neg Hx Social History: History Social History Narrative Lives with bio mom and m-grandmother Review of Systems: Constitutional: Denies fever or chills, growth problems. Eyes: Denies visual difficulties. HENT: Denies chronic ear/nose/throat infections, or hearing problems. Respiratory: Denies asthma or lung problems Cardiovascular: see HPI GI: Denies abdominal pain, nausea, vomiting, or diarrhea : Denies urinary or kidney problems. Musculoskeletal: Denies back pain or joint pain Integument: Denies rash, skin problems, or unusual birthmarks. Neurologic: Denies headache, seizures, loss of consciousness, weakness or paralysis Endocrine: Denies thyroid problems. Psychiatric: Denies behavioral problems, or sleep problems. Vital signs: Vital signs: Filed Vitals: 08/10/15 1158 BP: 100/62 Pulse: 78 Height: 1.6 m (5' 2.99") Weight: 49.215 kg (108 lb 8 oz) SpO2: 97% Blood pressure percentiles are 15% systolic and 36% diastolic based on 2000 NHANES data. Bl ood pressure percentile targets: 90: 124/80, 95: 128/84, 99: 140/96. Growth Percentiles: Wt Readings from Last 3 Encounters: 08/10/15 49.215 kg (108 lb 8 oz) (24 %*, Z = -0.69) 04/30/15 50.349 kg (111 lb) (32 %*, Z = -0.48) 04/07/15 50.803 kg (112 lb) (34 %*, Z = -0.41) * Growth percentiles are based on CDC 2-20 Years data. Ht Readings from Last 3 Encounters: 08/10/15 1.6 m (5' 2.99") (33 %*, Z = -0.43) 04/30/15 1.594 m (5' 2.75") (31 %*, Z = -0.51) 04/07/15 1.575 m (5' 2") (21 %*, Z = -0.80) * Growth percentiles are based on CDC 2-20 Years data. Body mass index is 19.22 kg/(m^2). 30%ile (Z=-0.54) based on CDC 2-20 Years BMI-for-age data using vitals from 08/10/2015. 24%ile (Z=-0.69) based on CDC 2-20 Years [id number] data using vitals from 08/10/2015. 33%ile (Z=-0.43) based on CDC 2-20 Years [id number]-[id number] data using vitals from 08/10/2015. General Physical Examination: General: Well-appearing, no acute distress. Not dysmorphic. HEENT: Normocephalic, atraumatic. Normal conjunctivae without erythema or icterus. No nasa l discharge. [place] moist mucous membranes. Neck: Supple, with full range of motion. No masses or thyromegaly. No adenopathy. No JVD Cardiovascular: Symmetric appearing chest with normally active precordium without lift, he ave or thrill . Heart is regular in rate and rhythm. Normal S1, physiologically split S2. No S3 or S4. No significant murmurs heard, no rub or gallop. Lungs: Clear to auscultation bilaterally. No wheezes, rales, or rhonchi. Abdomen: Soft, nontender, nondistended. No hepatosplenomegaly. Extremities: No cyanosis, clubbing, or edema. 2+ femoral and radial pulse without delay Skin: No rashes. Psychiatric: Affect appropriate, mood bright. Review Data and Imaging: ECG: Electrocardiogram done today revealed normal sinus rhythm, with normal SC and QT inter vals, no evidence of any chamber enlargement seen, no evidence of any conduction abnormaliti es seen ECHO: Revealed her echocardiogram which was brought in from [facility] showed essentially normal echocardiogram with no evidence of any significant structural functional cardiac abnormality . Thank you very much for allowing us to participate in Renny Saravia's care. Please do not hesitate to contact us at any time should you have any questions or concerns. 60 minutes were spent in direct consultation with this patient with greater than 50% of th e time spent counseling the patient regarding my impression, the disease process and plan of care as detailed above. I reviewed the previous notes and current studies. Note: This report was partially dictated with the use of voice recognition software. It ma y contain inadvertent spelling or grammatical errors which were not detected in the editing process. Should you have any questions or concerns, please do not hesitate to contact me annemarie szymanski. Electronically signed by: Cat Wilson MD 08/10/2015 13:26 CC: Leonid Osorio [phone] documented in [facility] s encounter Procedure Notes Cat Wilson MD - 08/10/2015 11:31 AM PDTAssociated Order(s): ECG 12 LEAD - PBProc edure(s): ECG 12 LEAD - PBPre-Procedure Diagnose(s): TachycardiaElectrocardiogram done toda y revealed normal sinus rhythm, with normal SC and QT intervals, no evidence of any chamber enlargement seen, no evidence of any conduction abnormalities seen documented in [facility] s encounter Miscellaneous Notes Assessment & Plan Note - Cat Wilson MD - 08/10/2015 12:22 PM PDTAssociated Proble m(s): PalpitationThis young lady is having episodes of frequent palpitation lasting anywhere from 15 seconds to the lowest has last about 45 minutes and this was about 3 weeks ago wher e she was seen in emergency room, but no EKG was done, she has had this for last 2 years or so, and she has had an echocardiogram done at [facility] which was normal indicating structurally normal heart, and attempt at the Holter monitor or event monitor did not show any arrhythmia because of malfunction according to the mother, so at that today's evaluation shows that he r electrical echo is normal but from the history it looks like she might be having episodes of SVT, so I recommended to placing her on an event monitor for next month or so and hopeful ly within next month she will have at least few of these episodes, and based on the findings will decide what Treatment she will need, she does have very strong family history of arrhy thmias several members of her family has had ablation or is being treated for with medicatio n, so based on today's findings I would recommend no special restriction as far as activitie s are concerned, she does not need any bacterial endocarditis prophylaxis, would like to see her back in about a month or so we will review the result of the monitor and decide final p lans. Also because of strong family history of hyperlipidemia and coronary artery disease I recommended to get a fasting lipid profile done within next few weeks or so. documented in this encounter Plan of Treatment [...] | | | | | [place] [address] | | | | | | [phone] | | | | | | | | +--------+ + + + + | 09/22/ | Office | Physical Medicine | Gonzalo Merchant, | | | 2019 | Visit | and Rehabilitation | MD [address]ela [address] | | | | | | [place] | | | | | | [id number] | | | | | | | | +--------+ + + + + | 09/29/ | Virtual | Pain Medicine | ElbaPacheco arte[facility] | | | 2019 | Office | | [address] | | | | Visit | | [address] | | | | | | [place] [address] [address] [place], | | | | | | [place] [address] | | | | | | [phone] | | | | | | | | +--------+ + + + + | 01/24/ | Office | Family Medicine | Kurt Campbell, | | | 2020 | Visit | | DO [address] | | | | | | [place] | | | | | | [address] | | | | | | | | +--------+ + + + + + +------+--------+ + + | Name | Type | Priori | Associated Diagnoses | Order Schedule | | | | ty | | | + +------+--------+ + + | Lipid Panel | Lab | Routin | Family history of | 1 Occurrences | | | | e | hypercholesterolemia | starting 08/10/2015 | | | | | | until 08/10/2016 | + +------+--------+ + + documented as of this encounter Procedures + +--------+ + + + | Procedure Name | Priori | Date/Time | Associated Diagnosis | Comments | | | ty | | | | + +--------+ + + + | ECG 12 LEAD - PB | Routin | 08/10/2015 | Tachycardia | Results for this | | | e | 1:25 PM | | procedure are in the | | | | PDT | | results section. | + +--------+ + + + | ECHO-EXTERNAL SCAN | | 09/17/2014 | | | | | | 12:00 AM | | | | | | PDT | | | + +--------+ + + + | CONSULT - EXTERNAL | | 09/17/2014 | | | | SCAN | | 12:00 AM | | | | | | PDT | | | + +--------+ + + + documented in this encounter Results ECG 12 lead (08/10/2015 1:25 PM PDT) + + + | Narrative | Performed At | + + + | Cat Weir | | | MD Steve 08/10/2015 13:25Electrocardiogram done today | | | revealed normal sinus rhythm, with normal SC and QT intervals, no | | | evidence of any chamber enlargement seen, no evidence of any | | | conduction abnormalities seen | | | | | + + + documented in this encounter Visit Diagnoses + + | Diagnosis | + + | Tachycardia - Primary Tachycardia, unspecified | + + | Palpitation Palpitations | + + | Family history of hypercholesterolemia Family history of other endocrine and | | metabolic diseases | + + documented in this encounter
--- OUTSIDE RECORDS SUMMARY | ~2020-09-05 | XMS | Encounter Summary ---
Demographics + + + | Address | [address] | | | [place] [address] | + + + | Home Phone | | + + + | Preferred Language | Unknown | + + + | Marital Status | Single | + + + | Confucianism Affiliation | [phone] | + + + | Race | Unknown | + + + | Ethnic Group | Not or | + + + Author + + + | Author | [facility] | | | and [place] | + + + | Organization | [facility] | | [...] | | | | | [place] [address] | | + + + + + | Concha Paulino | ECON | [address] | | | | | [place] [address] | | + + + + + Care Team Providers + +------+ + | Care Stem Roller Name | Role | Phone | + +------+ + | Leonid Osorio MD | PCP | | + +------+ + Reason for Visit + + + | Reason | Comments | + + + | Medication Refill | | + + + | Cough | | + + + Encounter Details +--------+ + + + + | Date | Type | Department | Care Team | Description | +--------+ + + + + | 02/22/ | Emergency | [facility] | Casimiro Pimentel S, | Community acquired | | 2017 | | [facility] EM[facility] | MD [address] | pneumonia of right | | | | CENTER [address] | [place], [place] | lower lobe of lung | | | | [place], [place] | [address] | (Primary Dx); | | | | [address] | | Elevated blood | | | | [phone] | | pressure reading | +--------+ + + + + Social [...] + + + | Blood Pressure | 114/76 | 02/22/2018 8:15 PM | | | | | PDT | | + + + + + | Pulse | 100 | 02/22/2018 8:15 PM | | | | | PDT | | + + + + + | Temperature | 36.9 C (98.5 F) | 02/22/2018 6:53 PM | | | | | PDT | | + + + + + | Respiratory Rate | 16 | 02/22/2018 6:53 PM | | | | | PDT | | + + + + + | Oxygen Saturation | 96% | 02/22/2018 8:15 PM | | | | | PDT | | + + + + + | Inhaled Oxygen | - | - | | | Concentration | | | | + + + + + | Weight | 45.4 kg (100 lb) | 02/22/2018 6:53 PM | | | | | PDT | | + + + + + | Height | 157.5 cm (5' 2") | 02/22/2018 6:53 PM | | | | | PDT | | + + + + + | Body Mass Index | 18.29 | 02/22/2018 6:53 PM | | | | | PDT [...] following attachments cannot be sent through Care Everywhere.Chest and Lung Problems, Diagnosing: Surgical Procedures (Libyan)Pneumonia, Preventing (Libyan)Pneumonia, What Is (Libyan)Pneumonia, Treating (Libyan)documented in this encounter Medications at Time of [...] (OMNICEF) | Take 1 capsule by | 10 | 0 | 02/23/20 | | | 300 mg capsule | mouth 2 times daily | capsule | | 18 | 8 | | | for 5 days. | | | | | + [...] + documented as of this encounter ED Annalisa Zurita RN - 02/22/2018 8:19 PM PDTDischarged in stable condition per MD order. Pt received discharge instructions and performed verbal repeatback for RN to indicate full u nderstanding. All questions answered. Pt alert/oriented, ambulatory with steady gait, breath ing unlabored on room air, and skin pink/warm/dry. No additional needs noted. Casimiro Scherer MD - 02/22/2018 7:04 PM PDT [facility] Renny Saravia Emergency Department Encounter Note [address] [place] [address] PCP:Leonid Osorio MD [phone] CHIEF COMPLAINT: Chief Complaint Patient presents with Medication Refill ED Room: ED07/ED07 HPI Renny Saravia is a 18 y.o. female who presents to the Emergency Department presents to the department for refill of her medication. Patient was started on a 10 day course of Omnicef for her pneumonia which was failed to resolve with a macrolide, azithromycin. She r eports doing much better but in the move she lost her medication is very concerned because s he was starting to feel much better. She currently has decreased chest pain, decreased disc omfort when she takes a deep breath on the right side, no longer has fevers, and although he r cough is present and getting less it does not hurt as much as it previously did. She is c ompleted 5 days of Omnicef and her last dose was last night. She presents today to ensure s he completes the antibiotics. No additional medications lost. No recent falls or injuries. PAST MEDICAL & SURGICAL HISTORY Past Medical History: Diagnosis Date Asthma Depression Depression Hypotension Kidney cysts right Migraine Past Surgical History: Procedure Laterality Date DENTAL SURGERY CURRENT MEDICATIONS Discharge Medication List as of 02/22/2018 19:55 CONTINUE these medications which have NOT CHANGED Details albuterol (PROAIR HFA) 90 mcg/puff inhaler Inhale 2 puffs into the lungs every 4 hours as n eeded for Wheezing for up to 10 days.Disp-1 Inhaler, R-0, Print azithromycin (ZITHROMAX) 250 mg tablet Take 2 tablets by mouth on day 1, and 1 tablet by de ut every dayDisp-6 tablet, R-0, Print diphenhydrAMINE (BENADRYL) 25 mg tablet Take 25 mg by mouth every 6 hours as needed for Itc sonia.Historical Med EPINEPHrine auto-injector 0.3 mg/0.3 mL injection Inject 0.3 mLs into the muscle as needed for Anaphylaxis.Disp-1 each, R-0, Print fluticasone (FLONASE) 50 mcg/nasal spray 1 spray [...] bio mom and m-grandmother REVIEW OF SYSTEMS Constitutional: Negative for: fever or chills Cardiovascular: Negative for: chest pain Respiratory: POSITIVE for: cough denies for shortness of breath Neuro and psych: Negative for: fainting or dizziness All other systems were reviewed and are subjectively reported as negative. PHYSICAL EXAM VITAL SIGNS: (first vital signs):Temp: 36.9 C (98.5 F) Pulse: 127 Resp: 16 SpO2: 97 % B P: 126/89 General: Alert, no active distress and not requiring any emergent interventions Eyes: Normal inspection ENT: Ears normal Nose normal Pharynx normal [...] and dry Extremities: [place] with equal pulses Neuro: No gross motor/sensory deficit GCS 15 No cerebellar deficits Alert and oriented. LABS Results for orders placed or performed during the hospital encounter of 02/22/18 Urinalysis with Microscopic with Culture if Indicated Result Value Ref Range COLOR Yellow Light Yellow, Yellow, Straw CLARITY Hazy (A) Clear PH UA 6.0 5.0 - 8.0 Specific [place] 1.021 1.001 - 1.030 PROTEIN UA Negative Negative BLOOD UA Negative Negative GLUCOSE UA Negative Negative KETONES UA Negative Negative BILIRUBIN UA Negative Negative NITRITE UA Negative Negative LEUKOCYTES ESTERASE UA Moderate (A) Negative UROBILINOGEN UA Negative 0.2 mg/dL, 1.0 mg/dL, Negative WBC UA 5-10 (A) 0 - 2 /HPF RBC UA 0-2 0 - 2 /HPF SQUAMOUS EPITHELIAL UA 25-50 (A) 0 - 2 /LPF BACTERIA UA 1+ (A) Negative /HPF MUCUS UA Present (A) Negative /LPF URINE COMMENT Urine Culture Not Indicated POCT Test, Urine, QUAL Result Value Ref Range Test, Urine, POC Negative Negative Internal QC Acceptable Acceptable Specific [place], POC 1.010, 1.015, 1.020, 1.025 Lot Number [id number] Expiration Date 03/12/2019 STUDIES Recent Results (from the past 360 hour(s)) XR Chest AP Portable Narrative CLINICAL INFORMATION: COUGH. COMPARISON: 02/06/2009. FINDINGS: Portable frontal chest radiograph Lungs: Focal airspace consolidation at the right upper hilar region. No pleural effusion or pneumothorax. Heart/mediastinum: Cardiac silhouette is of normal size. Central pulmonary vasculature has a normal appearance. Bones: No acute osseous abnormality appreciated. Sigmoid curvature of the spine. IMPRESSION - Right infrahilar airspace opacity may represent pneumonia in the appropriate clinical setting. Dictated and Signed by: Kanu Sanchez MD Electronically signed: 02/14/2018 10:[address] Angiogram Pulmonary Narrative CT ANGIOGRAM PULMONARY CLINICAL INFORMATION: Cough. COMPARISON: XR CHEST PA AND LATERAL dated 12/29/2017; CHEST TWO VIEWS dated 01/28/2015; CHEST TWO VIEWS dated 05/10/2012 PROCEDURE: Thin-section images of the entire chest after the administration of 70 ml Omnipaque 350 intravenous contrast. 3D MIP thin slab images and 2D multiplanar reconstructions performed. FINDINGS: PULMONARY ARTERIES: No pulmonary embolism. RIGHT VENTRICLE TO LEFT VENTRICLE RATIO: Not applicable. (Maximum short axis diameter on axial image. Applicable only when pulmonary embolism present. Abnormal greater than or equal to 0.9.) CHEST Lungs, Pleura and Airways: There is consolidation involving the posterior basal segment of the right lower lobe. No large pleural effusions or pneumothorax. Central airways are patent. Mediastinum: No significant pericardial, great vessel or esophageal abnormality. No mediastinal mass. Lymph Nodes: No adenopathy. Upper Abdomen: No significant abnormality in the visualized upper abdomen. BODY WALL Soft Tissues: The soft tissues of the chest wall are unremarkable. Bones: No acute fracture or vertebral end plate destruction. No lytic or blastic lesion. IMPRESSION- Right posterior basal pneumonia. No evidence of acute pulmonary embolism. A teleradiology preliminary report was provided by MD Brea, [facility], 02/14/2018 10:36:34 PM Dictated and Signed by: Kanu Sanchez MD Electronically signed: 02/15/2018 11:29 AM XR Chest PA and Lateral Narrative EXAM: XR CHEST PA AND LATERAL dated 02/22/2018 6:54 PM HISTORY: poss pneumonia Comparison: February 14, 2018. TECHNIQUE: Frontal and lateral views of the chest. FINDINGS: Interval clearing of the posterior medial area of consolidation in the right lower lung. No pleural effusions. No pneumothorax. The cardiac and mediastinal contours are not enlarged. There is dextroconvex scoliosis. IMPRESSION - Interval resolution of the right lower lobe consolidation. Dictated and Signed by: Von Talley MD Electronically signed: 02/23/2018 8:32 AM ED COURSE & MEDICAL DECISION MAKING Pertinent Labs & Imaging studies were reviewed along with EMS notes and [facility] record s if applicable. (See chart for details) Medications and Allergy list reviewed. Nurses note and old records were reviewed. 19:04 I considered viral etiology, laryngotracheobronchitis, croup, bacterial etiology, sandi terial tracheobronchitis, lung abscess, pertussis, mycoplasmal etiology, mycoplasmal bronchi tis, chlamydial etiology and chlamydial bronchitis as a possible cause of cough in this kati ent. This is a partial list of diagnoses considered. I have discussed my clinical impression and treatment plan with the pt. We have specificall y discussed the signs and symptoms that would constitute the need for an immediate return to the ED, the importance of continued outpatient f/u and the importance of compliance with th e d/c instructions. Last Set of Vital Signs: Temp: 36.9 C (98.5 F) Pulse: 100 Resp: 16 SpO2: 96 % BP: 114/7 6 Patient Vitals for the past 24 hrs: BP Temp Temp src Pulse Resp SpO2 Height Weight 02/22/182014 114/76 - - 100 - 96 % - - 02/22/181999 110/75 - - 105 - 96 % - - 02/22/18 1853 126/89 36.9 C (98.5 F) Oral 127 16 97 % 1.575 m (5' 2") 45.4 kg (100 lb) Medications - No data to display FINAL IMPRESSION 1. Community acquired pneumonia of right lower lobe of lung (HCC) 2. Elevated blood pressure reading Follow-up Information Leonid Osorio MD. Specialty: Pediatrics Why: Please call Saturday to arrange follow-up in the next 10-14 days for your ED visit, rubio vated blood pressure and chest xray in 4-6 weeks to ensure complete resolution Contact information: [address] [facility] [address] [facility]. Specialty: Emergency Medicine Contact information: [address] [address] Discharge Medication List as of 02/22/2018 19:55 START taking these medications Details cefdinir (OMNICEF) 300 mg capsule Take 1 capsule by mouth 2 times daily for 5 days.Disp-10 capsule, R-0, PrintPatient has tolerated well without any difficulties Electronically signed by: Casimiro Pimentel MD 02/24/2018 15:47 Casimiro Pimentel. This document has been prepared with a voice recognition system. The possibility of "sound alike" health unit coordinator errors, addition and/or deletions may occur. If there is any question p lease contact the author of the document. Casimiro Pimentel MD 02/24/18 1547 cNeil, Ayde Hinds RN - 02/22/2018 6:51 PM PDTPt states she was taking cefdinir for pneumonia and lost the se cond half of her antibx. in a recent move. Was able to complete her prednisone and Z-pack bu t could completed half the cefdinir before it was lost. documented in this encounter Plan of Treatment +--------+ + + + + | Date | Type | Specialty | Care Team | Description | +--------+ + + + + | 09/07/ | Office | Cardiology | Tawana Mcdonald | | | 2019 | Visit | | GLEN Morales [address] | | | | | | [address] [facility] | | | | | | [place] [address] | | | | | | [phone] | | | | | | | | +--------+ + + + + | 09/22/ | Office | Physical Medicine | Gonzalo Merchant, | | | 2019 | Visit | and Rehabilitation | [address] | | | | | | [place] | | | | | | [address] | | | | | | | | +--------+ + + + + | 09/29/ | Virtual | Pain Medicine | Peggy Arreola | | 2019 | Office | | [address] | | | | Visit | | [address] | | | | | | [place] | | | | | | [place] [address] | | | | | | [phone] | | | | | | | | +--------+ + + + + | 01/24/ | Office | Family Medicine | Kurt Campbell, | | | 2020 | Visit | | [address] | | | | | | [place] | | | | | | [address] | | | | | | | | +--------+ + + + + + +------+--------+ + + | Name | Type | Priori | Associated Diagnoses | Date/Time | | | | ty | | | + +------+--------+ + + | ED INFORMATION | FRANDY | Routin | | 02/22/2018 6:34 PM | | EXCHANGE | | e | | PDT | + +------+--------+ + + documented as of this encounter Procedures + +--------+ + + + | Procedure Name | Priori | Date/Time | Associated Diagnosis | Comments | | | ty | | | | + +--------+ + + + | URINALYSIS WITH | STAT | 02/22/2018 | | Results for this | | MICROSCOPIC WITH | | 7:03 PM | | procedure are in the | | CULTURE IF INDICATED | | PDT | | results section. | + +--------+ + + + | POCT TEST, | STAT | 02/22/2018 | | Results for this | | URINE, QUAL | | 7:03 PM | | procedure are in the | | | | PDT | | results section. | + +--------+ + + + | XR CHEST PA AND | STAT | 02/22/2018 | | Results for this | | LATERAL | | 7:00 PM | | procedure are in the | | | | PDT | | results section. | + +--------+ + + + | ED INFORMATION | Routin | 02/22/2018 | | | | EXCHANGE | e | 6:34 PM | | | | | | PDT | | | + +--------+ + + + +---+--------+ | | | | | Proced | | | ure | | | Note - | | | Joel, | | | Lab In | | | | | | Hlseve | | | n - | | | 02/22/ | | | 2017 | | | 6:35 | | | PM PDT | | [...] | | | ON?[birth year] | | | | | | 8 | | | 18:[birth year]? | | | HUDDLE | | | SON, | | | RENNY | | | M?MRN: | | | | | | [id number] | | | [id number] | | | his | | | [...] | | | darien | | | Mar | | | [...] | | | ations | | | [place] | | | 23, | | | 2018 | | | [facility] | | | [place] | | | Urgent | | | Care | | | [place] | | | [place] | | | Urgent | | | Care | | | | | | Outpat | | | ient | | | | | | Other | | | | | | Pain | | | in | | | unspec | | | ified | | | joint | | | E.D. | | | [...] | | | Center | | | 6 0 | | | [place] | | | [facility] | | | l | | | Hospit | | | al 5 0 | | | Total | | | 12 0 | | | Note: | | [...] | +---+--------+ documented in this encounter Results POCT Test, Urine, QUAL (02/22/2018 7:03 PM PDT) + + + + + [...] + + + | Specific | | 1.010, 1.015, | | | | [place], | | 1.020, 1.025 | | | | POC | | | | | + + + + + + | Lot Number | [id number] | | | | + + + + + + | Expiration | 03/12/2019 | | | | | Date | | | | | + + + + + + + + | Specimen | + + | Urine | + + Urinalysis with Microscopic with Culture if Indicated (02/22/2018 7:03 PM PDT) + + + + + [...] + + + + | Specific | 1.021 | 1.001 - 1.030 | [facility] | | | [place], | | | [facility] | | [...] + + + | White Blood | 5-10 (A) | 0 - [...] + | [facility] | [address] | [place], [place] | [phone] | | [facility] | | [address] | | | - LABORATORY | | | | + + + + + XR Chest PA and Lateral (02/22/2018 7:00 PM PDT) + + | Specimen | + + | | + + + + + | Narrative | Performed At | + + + | EXAM: XR CHEST PA AND LATERAL dated 02/22/2018 6:54 PM HISTORY: | [facility] | | poss pneumonia Comparison: February 14, 2018. TECHNIQUE: Frontal | | | and lateral views of the chest. FINDINGS: Interval clearing of | | | the posterior medial area of consolidation in the right lower lung. | | | No pleural effusions. No pneumothorax. The cardiac and | | | mediastinal contours are not enlarged. There is dextroconvex | | | scoliosis. IMPRESSION - Interval resolution of the right | | | lower lobe consolidation. Dictated and Signed by: Von Stone | | | MD Gerri Electronically signed: 02/23/2018 8:32 AM | | + + + + + | Procedure Note | + + | Joel, Rad Results In - 02/23/2018 8:36 AM PDT EXAM: XR CHEST PA AND LATERAL dated | | 02/22/2018 6:54 PMHISTORY: poss pneumoniaComparison: February 14, 2018.TECHNIQUE: Frontal | | and lateral views of the chest.FINDINGS:Interval clearing of the posterior medial area | | of consolidation in the rightlower lung. No pleural effusions. No pneumothorax. The | | cardiac andmediastinal contours are not enlarged. There is dextroconvex scoliosis. | | IMPRESSION -Interval resolution of the right lower lobe consolidation. Dictated and | | Signed by: Von Talley MD Electronically signed: 02/23/2018 8:32 AM | | | |FINDINGS: | |Interval clearing of the posterior medial area of consolidation in the right | |lower lung. No pleural effusions. No pneumothorax. The cardiac and | |mediastinal contours are not enlarged. There is dextroconvex scoliosis. | | | |IMPRESSION - | | | |Interval resolution of the right lower lobe consolidation. | | | |Dictated and Signed by: Von Talley MD | | Electronically signed: 02/23/2018 8:32 AM | + + + +---------+ + + | Performing | Address | City/State/Zipcode | Phone Number | | Organization | | | | + +---------+ + + | [facility] | | | | + +---------+ + + documented in this encounter Visit Diagnoses + + | Diagnosis | + + | Community acquired pneumonia of right lower lobe of lung - Primary | + + | Elevated blood pressure reading Elevated blood pressure reading without diagnosis of | | hypertension | + + documented in this encounter Administered Medications + +--------+ +--------+------+------+ | Medication Order | MAR | Action | Dose | Rate | Site | | | Action | Date | | | | + +--------+ +--------+------+------+ | cefdinir (OMNICEF) capsule 300 | Given | 02/23/20 | 300 mg | | | | mg 300 mg, Oral, 2 TIMES DAILY, | | 18 8:18 | | | | | First dose on 02/22/18 at | | PM PDT | | | | | 2015, Indications: Community | | | | | | | Acquired Pneumonia | | | | | | + +--------+ +--------+------+------+ +---+---+ | | | +---+---+ documented in this encounter
--- OUTSIDE RECORDS SUMMARY | ~2020-09-05 | XMS | Encounter Summary ---
Demographics + + + | Address | [address] | | | [place] [address] | + + + | Home Phone | | + + + | Preferred Language | Unknown | + + + | Marital Status | Single | + + + | Oriental Orthodox Affiliation | 1059 | + + + [...] | | | | | [place] [address] | | + + + + + | Concha Paulino | ECON | [address] | | | | | [place] [address] | | + + + + + Care Team Providers + +------+ + | Care Callisthenics Instructor Name | Role | Phone | + +------+ + | Kurt Campbell DO | PCP | | + +------+ + Reason for Visit + +--------+ + | Reason | Onset | Comments | | | Date | | + +--------+ + | Appointment Question | 06/22/ | | | | 2019 | | + +--------+ + Encounter Details +--------+ + + + + | Date | Type | Department | Care Team | Description | +--------+ + + + + | 06/22/ | Telephone | [facility] | Kurt Campbell, | Appointment Question | | 2018 | | [facility] | DO [address] | | | | | [address] | [place] | | | | | [place] | [id number] | | | | | [address] | | | | | | [phone] | | | +--------+ + + + [...] Comments: vaping right now 3 mg nicotine ocassionally | + + + + +---------+ + [...] this encounter Miscellaneous Notes Telephone Encounter - Sandy Graves RN - 06/22/2019 5:54 PM PDTAppointment notes ind icate persistent/worsening pain. Patient saw Dr. Campbell 06/17 for chronic back pain and scoli osis. Documented in notes that left leg and calf pain are one of her associated symptoms. OK to keep appointment as scheduled. Electronically signed by Sandy Graves RN at 019 5:56 PM PDTTelephone Encounter - Deborah Miller - 06/22/2019 3:16 PM PDTPatient sc heduled an appointment through My Chart for persistent and worsening left calf pain and pain behind knee but not until 07/08/19. Please call patient and advise if should be seen sooner , . Marysol malone in this encounter Plan of Treatment +--------+ + + + + | Date | Type | Specialty | Care Team | Description | +--------+ + + + + | 09/07/ | Office | Cardiology | Tawana Mcdonald | | | 2019 | Visit | | GL[address] | | | | | | [address] | | | | | | [place] [address] | | | | | | [phone] | | | | | | | | +--------+ + + + + | 09/22/ | Office | Physical Medicine | Gonzalo Merchant, | | 2019 | Visit | and Rehabilitation | MD [address] | | | | | | [place] | | | | | | [address] | | | | | | | | +--------+ + + + + | 09/29/ | Virtual | Pain Medicine | Elba, Peggy | | | 2019 | Office | | [address] | | | | Visit | | [address] | | | | | | [place] | | | | | | [place] [address] | | | | | | [phone] | | | | | | | | +--------+ + + + + | 01/24/ | Office | Family Medicine | Kurt Campbell, | | | 2020 | Visit | | [address] | | | | | | [place] | | | | | | [phone] | | | | | | | | +--------+ + + + + documented as of this encounter Visit Diagnoses Not on filedocumented in this encounter"
--- OUTSIDE RECORDS SUMMARY | ~2020-09-05 | XMS | Encounter Summary ---
Demographics + + + | Address | [address] | | | [place] [address] | + + + | Home Phone [...] | | | | | [place] [address] | | + + + + + | Concha Paulino | ECON | [address] | | | | | [place] [address] | | + + + + + Care Team Providers + +------+ + | Care Family Practice Md Name | Role | Phone | + +------+ + | Kurt Campbell DO | PCP | | + +------+ + Reason for Visit + +--------+ + | Reason | Onset | Comments | | | Date | | + +--------+ + | ED Follow-up | 02/21/ | | | | 2019 | | + +--------+ + Encounter Details +--------+ + + + + | Date | Type | Department | Care Team | Description | +--------+ + + + + | 02/21/ | Telephone | [facility] | Kurt Campbell, | ED Follow-up | | 2019 | | [facility] | DO [address] | | | | | [address] | [place], [place] | | | | | [place], [place] | [id number] | | | | | [address] | | | | | | [phone] | | | +--------+ + + + [...] this encounter Miscellaneous Notes Telephone Encounter - Shreya Sanchez, OT - 02/22/2020 4:11 PM PDT [facility] ED follow up call Admission Date: 02/17/20 Discharge Date: 02/17/20 Discharge Disposition: Home or Self Care Principle Discharge Diagnosis: Exacerbation of asthma. If unable to reach letter sent (if appropriate): No How are you feeling since being home: States she is doing better. She has not made a follo w-up with her PCP yet but plans to. Any medications ordered this visit: yes Have you started the ordered medication: yes If not why: n/a Any questions on the medication: No Specialty referral: No Referral in place: No Has this patient been seen in the ED 5 or more times in the last 6 months: no Need case management to prevent more ED visits: no Follow up needed: As needed Future Appts: Future Appointments Date Time Provider Department [place] 02/25/2020 3:50 PM Gonzalo Merchant [facility] 06/16/2020 11:00 AM Tawana Mcdonald PA-C [facility] Discharge instructions: Follow up with PCP MARILYN documented in this en counter Plan of [...] | | | | | [place] [address] | | | | | | [phone] | | | | | | | | +--------+ + + + + | 09/22/ | Office | Physical Medicine | Gonzalo Merchant, | | | 2019 | Visit | and Rehabilitation | MD [address] | | | | | | [place] | | | | | | [id number] | | | | | | | | +--------+ + + + + | 09/29/ | Virtual | Pain Medicine | Peggy Arreola | | | 2019 | Office | | [address] | | | | Visit | | [address] | | | | | | [place] [address] [place] | | | | | | [place] [address] | | | | | | [phone] | | | | | | | | +--------+ + + + + | 01/24/ | Office | Family Medicine | Kurt Campbell, | | | 2020 | Visit | | DO [address] | | | | | | [place] | | | | | | [id number] | | | | | | | | +--------+ + + + + documented as of this encounter Visit Diagnoses Not on filedocumented in this encounter"
--- OUTSIDE RECORDS SUMMARY | ~2020-09-05 | XMS | Clinical Summary ---
Demographics + + + | Address | [address] [facility] | | | [place] [address] | + + + | Home Phone | | + + + | Preferred Language | Unknown | + + + | Marital Status | Single | + + + | Jehovah'S Witness Affiliation | 1059 | + + + | Race | Unknown | + + + | Ethnic Group | Not or | + + + Author + + + | Author | [facility] | | | and [place] | + + + | Organization | [facility] | | | and [...] | | | | | [place] [address] | | + + + + + | Concha Paulino | ECON | [address] | | | | | [place] [address] | | + + + + + Care Team Providers + +------+ + | Care Sales Floor Associate Name | Role | Phone | + +------+ + | Kurt Campbell DO | PCP | | + +------+ + Allergies + + + + + + | Active Allergy | Reactions | Severity | Noted | Comments | | | | | Date | | + + + + + + | Aspirin | Other (See Comments) | | 11/12/20 | fever | | | | | 12 | | + + + + + + | Rey Flavor | Hives | High | 11/12/20 | | | | | | 12 | | + + + + + + | Venlafaxine | Anaphylaxis | High | 04/07/20 | | | | | | 15 | | + + + + + + | Fish Oil | Unknown | | 08/10/20 | Whooping cough | | | | | 15 | injection/ extreme | | | | | | reaction | + + + + + + | Nitrofuran | Nausea And Vomiting | | 04/07/20 | | | Derivatives | | | 15 | | + + + + + + | Nystatin | Swelling | High | 11/12/20 | | | | | | 12 | | + + + + + + | Omeprazole | Shortness Of Breath | High | 11/12/20 | | | | | | 12 | | + + + + + + | Penicillins | Hives, Nausea And | High | 11/12/20 | | | | Vomiting | | 12 | | + + + + + + | Sulfa Antibiotics | Shortness Of Breath | High | 11/12/20 | | | | | | 12 | | + + + + + + Medications + + + +---------+------+------+-------+ | Medication | Sig | Dispensed | Refills | Star | End | Statu | | | | | | t | Date | s | | | | | | Date | | | + + + +---------+------+------+-------+ | acetaminophen | Take 650 mg by mouth | | 0 | | | Activ | | (TYLENOL) 325 mg | every 4 hours as | | | | | e | | tablet | needed for Pain. | | | | | | + + + +---------+------+------+-------+ | FLOVENT HFA 44 | Inhale 2 puffs into | 3 | 3 | 06/2 | | Activ | | MCG/ACT | the lungs Daily. | Inhaler | | 0/20 | | e | | inhalerIndications: | | | | 19 | | | | Mild intermittent | | | | | | | | asthma without | | | | | | | | complication | | | | | | | + + + +---------+------+------+-------+ | albuterol (PROAIR | Inhale 2 puffs into | 18 g | 0 | 04/1 | | Activ | | HFA) 90 mcg/puff | the lungs every 6 | | | 420 | | e | | inhalerIndications: | hours as needed for | | | 20 | | | | Mild persistent | Wheezing or | | | | | | | asthma without | Shortness of Breath. | | | | | | | complication | | | | | | | + + + +---------+------+------+-------+ | albuterol 2.5 mg/3 | Take 3 mLs by | 60 vial | 0 | 04/1 | | Activ | | mL nebulizer | nebulization every 4 | | | 420 | | e | | solutionIndications: | hours as needed for | | | 20 | | | | Mild persistent | Wheezing or | | | | | | | asthma without | Shortness of Breath. | | | | | | | complication | | | | | | | + + + +---------+------+------+-------+ | fluticasone | 2 sprays by Nasal | 16 g | 12 | 06/0 | 06/0 | Activ | | (FLONASE) 50 | route Daily. | | | 5/20 | 5/20 | e | | mcg/nasal | | | | 20 | 21 | | | sprayIndications: | | | | | | | | Seasonal allergies | | | | | | | + + + +---------+------+------+-------+ | melatonin 5 mg | Take 5 mg by mouth | | 0 | | | Activ | | tablet | nightly as needed | | | | | e | | | for Insomnia. | | | | | | + + + +---------+------+------+-------+ | Cholecalciferol | Take by mouth. | | 0 | | | Activ | | (VITAMIN D3 GUMMIES | | | | | | e | | PO) | | | | | | | + + + +---------+------+------+-------+ | buPROPion | Take 150 mg by mouth | | 0 | 08/0 | | Activ | | (WELLBUTRIN XL) 150 | every morning. | | | 8/20 | | e | | mg 24 hr tablet | | | | 20 | | | + + + +---------+------+------+-------+ | | take 1 tablet by | | 0 | 08/1 | | Activ | | HYDROcodone-acetamin | mouth every 6 hours | | | 4/20 | | e | | ophen (NORCO) 5-325 | if needed | | | 20 | | | | mg per tablet | | | | | | | + + + +---------+------+------+-------+ | ibuprofen | take 1 tablet by | | 0 | 08/1 | | Activ | | (ADVIL,MOTRIN) 600 | mouth every 6 hours | | | 4/20 | | e | | MG tablet | if needed | | | 20 | | | + + + +---------+------+------+-------+ | baclofen | Take 1/2 tablet qhs | 60 | 1 | 08/2 | | Activ | | (LIORESAL) 10 mg | x7 days, then take 1 | tablet | | 4/20 | | e | | tabletIndications: | tablet qhs x7 days, | | | 20 | | | | Chronic right-sided | then take 1/2 | | | | | | | thoracic back pain, | tablet qam and 1 | | | | | | | Trigger point of | tablet at qhs daily | | | | | | | thoracic region | x7 days, then take | | | | | | | | 1/2 tablet in the | | | | | | | | qam and 1/2 tablet | | | | | | | | in the afternoon and | | | | | | | | 1 tablet at bedtime | | | | | | | | daily thereafter.. | | | | | | + + + +---------+------+------+-------+ | L-METHYLFOLATE PO | | | 0 | 08/1 | | Activ | | | | | | 20 | | e | | | | | | 20 | | | + + + +---------+------+------+-------+ | escitalopram | Take 1 tablet by | 90 | 1 | 09/0 | | Activ | | (LEXAPRO) 10 mg | mouth Daily. | tablet | | 2/20 | | e | | tabletIndications: | | | | 20 | | | | Depression, | | | | | | | | unspecified | | | | | | | | depression type, | | | | | | | | Anxiety | | | | | | | + + + +---------+------+------+-------+ | EPINEPHrine | Inject 0.3 mLs into | 2 each | 1 | 09/0 | | Activ | | auto-injector 0.3 | the muscle as needed | | | 2/20 | | e | | mg/0.3 mL | for Anaphylaxis. | | | 20 | | | | injectionIndications | | | | | | | | : Allergic reaction | | | | | | | | to drug, subsequent | | | | | | | | encounter | | | | | | | + + + +---------+------+------+-------+ Active Problems + + + | Problem | Noted Date | + + + | Anxiety | 04/29/2020 | + + + | Special screening for malignant neoplasms, colon | 05/20/2019 | + + + + + | Overview: Added automatically from request for surgery | | [id number] | + + + + + | Family hx of colon cancer | 05/20/2019 | + + + + + | Overview: Added automatically from request for surgery | | [id number] | + + + + + | SVT (supraventricular tachycardia) | 05/05/2019 | + + + + + | Overview: Echocardiogram March 2019 shows left ventricle is | | normal in size and function. Ejection fraction is estimated at | | 65-70%. Diastolic parameters are within normal limits. | | Structurally normal tricuspid valve with trace insufficiency and | | peak velocity consistent with normal pulmonary pressures.Ubaldo of | | hearts March 2019: Baseline transmission was notable for sinus | | rhythm with heart rate in the 80s. Patient subsequently | | transmitted one episode corresponding to symptoms of palpitations | | at rest which corresponded to underlying sinus rhythm with a 4-5 | | beat run of PACs. Another transmitted episode corresponded to | | sinus tachycardia with heart rate 137 without associated symptoms | | mentioned. William Coronel MD | + + + + + | and not yet delivered in first trimester | 04/02/2019 | + + + | OCD (obsessive compulsive disorder) | 03/23/2019 | + + + | Abdominal pain | 03/04/2019 | + + + | Tachycardia | 03/04/2019 | + + + + + | Overview: 4 week event monitor August 2015 Normal event | | monitor documenting normal heart rhythm during symptoms. Manny | | MD Piotr | + + + + + | Family history of colon cancer in father | 03/02/2019 | + + + + + | Overview: Father had colon cancer at age 42 | | Cousin had colon cancer at age 26 | | She has had polyps diagnosed on prior colonoscopy | + + + + + | Depression | 03/02/2019 | + + + | Mild intermittent asthma | 03/02/2019 | + + + | Scoliosis of thoracic spine | 03/02/2019 | + + + | Pityriasis rosea | 03/02/2019 | + + + | Second hand smoke exposure | 09/23/2017 | + + + | Palpitation | 08/10/2015 | + + + + + | Overview: 4 week event monitor March 2019 shows baseline | | transmission was notable for sinus rhythm with heart rate in the | | 80s. Patient subsequently transmitted one episode corresponding | | to symptoms of palpitations at rest which corresponded to | | underlying sinus rhythm with a 4-5 beat run of PACs. Another | | transmitted episode corresponded to sinus tachycardia with heart | | rate 137 without associated symptoms mentioned. Strong Family | | history of SVT needing ablation 4 week event monitor July | | 2015 Normal event monitor. Manny Saldaña MD Last Assessment | | & Plan: This young lady continues to have nonspecific symptoms | | and some palpitations which by her report are suggestive of | | nonsustained tachycardia. Past evaluations have been | | unsuccessful in documenting her tachycardia. She did have an | | event monitor last year but according to her she had no typical | | symptoms. I again reassured her that she has nothing based on | | her past evaluation supporting sudden cardiac risk. Her | | electrocardiogram is not suggestive of preexcitation or other | | obvious electrical substrate for arrhythmia. I again reinforced | | the importance of aggressive attention to extra free water, a | | liberalized salt intake, avoidance of excessive caffeine and | | regular aerobic exercise. Since she is having more symptoms that | | appear to be more frequent than in the past, I would like to | | perform outpatient telemetry using the [employer]. | | Hopefully this will allow us to document some of her clinical | | symptoms and either lay this issue to rest or pursue more formal | | electrophysiologic intervention. The family will be hearing from | | our office regarding scheduling and we will notify them after | | her monitoring period has been completed. We reviewed | | indications for emergency department treatment. There are no | | contraindications for continuing her behavioral/anxiety | | medications. | + + + + + | Adolescent idiopathic scoliosis of thoracolumbar region | 03/09/2013 | + + + | CONTUSION OF TOE | 03/08/2011 | + + + | Migraine | | + + + | Adverse food reaction | | + + + | Allergic rhinitis | | + + + | Anaphylaxis | | + + + | Blood in stool | | + + + | History of pneumonia | | + + + | Chest pain | | + + + Encounters +--------+ + + + + | Date | Type | Specialty | Care Team | Description | +--------+ + + + + | 08/18/ | Telephone | Family Medicine | Kurt Campbell, | Fatigue | | 2019 | | | DO | | +--------+ + + + + | 08/14/ | Orders Only | Family Medicine | Kurt Campbell, | Trigger point of | | 2019 | | | DO | thoracic region | | | | | | (Primary Dx); | | | | | | Chronic midline | | | | | | thoracic back pain; | | | | | | Scoliosis of | | | | | | thoracic spine, | | | | | | unspecified | | | | | | scoliosis type | +--------+ + + + + | 07/27/ | Office | Family Medicine | Kurt Campbell, | Immunity status | 2019 | Visit | | DO | testing (Primary | | | | | | Dx); Depression, | | | | | | unspecified | | | | | | depression type; | | | | | | Anxiety; Allergic | | | | | | reaction to drug, | | | | | | subsequent encounter | +--------+ + + + + | 07/18/ | Office | Physical Medicine | Gonzalo Merchant, | Chronic right-sided | | 2019 | Visit | and Rehabilitation | MD | thoracic back pain | | | | | | (Primary Dx); | | | | | | Trigger point of | | | | | | thoracic region | +--------+ + + + + | 07/14/ | Telephone | Family Medicine | Kurt Campbell, | Referral (Follow up) | 2019 | | | DO | | +--------+ + + + + | 06/22/ | Office | Family Medicine | Kurt Campbell, | Depression, | | 2019 | Visit | | DO | unspecified | | | | | | depression type | | | | | | (Primary Dx); | | | | | | Anxiety | +--------+ + + + + | 06/22/ | Office | Family Medicine | Rocio Maldonado, | Depression, | 2019 | Visit | | PharmD | unspecified | | | | | | depression type | | | | | | (Primary Dx); | | | | | | Anxiety | +--------+ + + + + | 06/21/ | Office | Physical Medicine | Gonzalo Merchant, | Trigger point of | | 2019 | Visit | and Rehabilitation | MD | thoracic region | | | | | | (Primary Dx); Focal | | | | | | dystonia; Chronic | | | | | | right-sided thoracic | | | | | | back pain | +--------+ + + + + | 06/16/ | Office | Cardiology | Tawana Mcdonald | Palpitation (Primary | | 2019 | Visit | | [place] | Dx); Chest pain, | | | | | | unspecified type; | | | | | | Tachycardia; SVT | | | | | | (supraventricular | | | | | | tachycardia) ([facility]) | +--------+ + + + + from Last 3 Months Immunizations + + + + | Name | Administration Dates | Next Due | + + + + | DT (PED) | 06/15/2004, 06/28/2000, 1999, | | | | 1999 | | + + + + | DTP (PED) | 1999 | | + + + + | HEP A, 2 DOSE | 08/04/2001, 01/31/2001 | | | (PED/ADOL) | | | + + + + | HIB (PRP-T), 4 DOSE | 06/28/2000, 1999, 1999, | | | (PED) | 1999 | | + + + + | HPV, QUADRIVALENT, 3 | 04/12/2015, 11/08/2014, 08/05/2014 | | | DOSE (ADOL/ADULT) | | | + + + + | Hep B (PED/ADOL) 3 | 1999, 1999, 1999 | | | DOSE | | | + + + + | INFLUENZA TRIV | 12/03/2013, 10/02/2010, 09/14/2009 | | | W/PRES(PED/ADOL/ADUL | | | | T),MULTIDOSE | | | + + + + | INFLUENZA, [id number], | 12/28/2009 | | | UNSPECIFIED | | | + + + + | INFLUENZA, | 12/03/2013, 10/02/2010, 09/14/2009 | | | UNSPECIFIED | | | | FORMULATION | | | + + + + | IPV, 4 DOSE | 01/29/2003, 06/28/2000, 1999, | | | (PED/ADULT) | 1999 | | + + + + | MENINGOCOCCAL | 07/25/2015, 07/25/2010 | | | CONJUGATE,MENACTRA | | | | (PED/ADOL/ADULT) | | | + + + + | MMR, 2 DOSE | 01/29/2003, 06/28/2000 | | | (PED/ADULT) | | | + + + + | PNEUMOCOCCAL PCV7 | 01/25/2001 | | | (PED) | | | + + + + | TD PF (5 LF TETANUS) | 07/25/2010 | | | (ADOL/ADULT) | | | + + + + | VARICELLA, 2 DOSE | 02/23/2008, 06/28/2000 | | | (VARIVAX) | | | + + + + Family History + + +---------+ + | Medical History | Relation | Name | Comments | + + +---------+ + | Asthma | Father | Perfecto | | + + +---------+ + | Colon cancer | Father | Perfecto | | + + +---------+ + | Depression | Father | Perfecto | | + + +---------+ + | Mental illness | Father | Perfecto | | + + +---------+ + | Other (see comment) | Father | Perfecto | angina | + + +---------+ + | Cancer | Maternal | Norberto | | | | Aunt | | | + + +---------+ + | Alcohol abuse | Maternal | Milton | | | | Grandfath | | | | | er | | | + + +---------+ + | Arthritis | Maternal | Milton | | | | Grandfath | | | | | er | | | + + +---------+ + | Cancer | Maternal | Milton | | | | Grandfath | | | | | er | | | + + +---------+ + | Other (see comment) | Maternal | Milton | rheumatic fever | | | Grandfath | | | | | er | | | + + +---------+ + | Arthritis | Maternal | Glo | | | | Grandmoth | | | | | er | | | + + +---------+ + | COPD | Maternal | Glo | | | | Grandmoth | | | | | er | | | + + +---------+ + | Depression | Maternal | Glo | | | | Grandmoth | | | | | er | | | + + +---------+ + | Heart defect | Maternal | Glo | hole in heart | | | Grandmoth | | | | | er | | | + + +---------+ + | Heart disease | Maternal | Glo | | | | Grandmoth | | | | | er | | | + + +---------+ + | Heart surgery | Maternal | Glo | 4x bypass | | | Grandmoth | | | | | er | | | + + +---------+ + | High blood pressure | Maternal | Glo | | | | Grandmoth | | | | | er | | | + + +---------+ + | High cholesterol | Maternal | Glo | | | | Grandmoth | | | | | er | | | + + +---------+ + | Miscarriages / | Maternal | Glo | | | stillbirths | Grandmoth | | | | | er | | | + + +---------+ + | Pulmonary embolism | Maternal | Glo | | | | Grandmoth | | | | | er | | | + + +---------+ + | Stroke | Maternal | Glo | | | | Grandmoth | | | | | er | | | + + +---------+ + | Asthma | Mother | | | + + +---------+ + | Bipolar disorder | Mother | | | + + +---------+ + | COPD | Mother | | | + + +---------+ + | Depression | Mother | | | + + +---------+ + | Emphysema | Mother | | | + + +---------+ + | High blood pressure | Mother | | | + + +---------+ + | High cholesterol | Mother | | | + + +---------+ + | Kidney disease | Mother | | | + + +---------+ + | Mental illness | Mother | | | + + +---------+ + | Cardiomyopathy | Other | | maternal great grandmother | + + +---------+ + | COPD | Paternal | E.B. | | | | Grandfath | | | | | er | | | + + +---------+ + | Cancer | Paternal | E.B. | | | | Grandfath | | | | | er | | | + + +---------+ + | Arthritis | Paternal | Flor | | | | Grandmoth | | | | | er | | | + + +---------+ + | Breast cancer | Paternal | Flor | | | | Grandmoth | | | | | er | | | + + +---------+ + | Diabetes | Paternal | Flor | | | | Grandmoth | | | | | er | | | + + +---------+ + | Early | Sister | Alisha | | + + +---------+ + | Collagen disease | Neg Hx | | | + + +---------+ + | Congenital heart | Neg Hx | | | | disease | | | | + + +---------+ + | Deafness | Neg Hx | | | + + +---------+ + | Heart transplant | Neg Hx | | | + + +---------+ + | Marfan syndrome | Neg Hx | | | + + +---------+ + | Premature CHD | Neg Hx | | | + + +---------+ + | Seizures | Neg Hx | | | + + +---------+ + | Sudden | Neg Hx | | | + + +---------+ + + +---------+ + + | Relation | Name | Status | Comments | + +---------+ + + | Father | Perfecto | | | + +---------+ + + | Maternal Aunt | Norberto | | | + +---------+ + + | Maternal Grandfather | Milton | | | + +---------+ + + | Maternal Grandmother | Glo | | | + +---------+ + + | Mother | | Alive | | + +---------+ + + | Other | | | | + +---------+ + + | Paternal Grandfather | E.B. | Alive | | + +---------+ + + | Paternal Grandmother | Flor | Alive | | + +---------+ + + | Sister | Alisha | | | + +---------+ + + | Son | | Alive | | + +---------+ + + Social History + +-------+ +--------+ [...] | | + +---+---+---+ + + | Tobacco Cessation: Ready to Quit: No; Counseling Given: No | | Comments: vaping right now 3 mg [...] 7:36 PM PDT | + + + Last Filed Vital Signs + + + [...] + + + + | Temperature | 36 C (96.8 F) | 07/18/2020 10:46 AM | | | | | PDT | | + + + + + | Respiratory Rate | 16 | 07/18/2020 10:46 AM | | | [...] Height | 157.5 cm (5' 2") | 07/18/2020 10:46 AM | | | | | PDT | | + + + + + | Body Mass Index | 18.27 | 07/18/2020 10:46 AM | | | | | PDT | | + + + + + Plan of Treatment +--------+ + + + + | Date | Type | Specialty | Care Team | Description | +--------+ + + + + | 09/07/ | Office | Cardiology | Tawana Mcdonald | | 2019 | Visit | | [place] | | | | | | [address] | | | | | | [place] [address] | | | | | | [phone] | | | | | | | | +--------+ + + + + | 09/22/ | Office | Physical Medicine | Gonzalo Merchant, | | | 2019 | Visit | and Rehabilitation | MD [address] | | | | | | [place] | | | | | | [address] | | | | | | | | +--------+ + + + + | 09/29/ | Virtual | Pain Medicine | Peggy Arreola | | | 2019 | Office | | [address] | | | | Visit | | [address] | | | | | | [place] [address] | | | | | | [place] [address] | | | | | | [phone] | | | | | | | | +--------+ + + + + | 01/24/ | Office | Family Medicine | Kurt Campbell, | | | 2020 | Visit | | DO [address] | | | | | | [place] | | | | | | [address] | | | | | | | | +--------+ + + + + + + + + + | Health Maintenance | Due Date | Last | Comments | | | | Done | | + + + + + | Well Child Check | | | | | | 2 | | | + + + + + | Vaccine: | | | | | Pneumococcal 19-64 | 5 | | | | (1 of 1 - PPSV23) | | | | + + + + + | Vaccine: | | 07/25/20 | | | Dtap/Tdap/Td (6 - | 0 | 10, | | | Tdap) | | 06/15/20 | | | | | 04, | | | | | 06/28/20 | | | | | 00, | | | | | Addition | | | | | al | | | | | history | | | | | exists | | + + + + + | Vaccine: Influenza | | 12/03/19 | | | (#1) | 0 | 14, | | | | | 12/03/19 | | | | | 14, | | | | | 10/02/20 | | | | | 10, | | | | | Addition | | | | | al | | | | | history | | | | | exists | | + + + + + | Med Mgmt: BUN | | 04/05/20 | | | | 1 | 20, | | | | | 01/17/20 | | | | | 20, | | | | | 02/14/20 | | | | | 19, | | | | | Addition | | | | | al | | | | | history | | | | | exists | | + + + + + | Med Mgmt: Cr | | 04/05/20 | | | | 1 | 20, | | | | | 01/17/20 | | | | | 20, | | | | | 02/14/20 | | | | | 19, | | | | | Addition | | | | | al | | | | | history | | | | | exists | | + + + + + | Medication | | 04/05/20 | | | Management | 1 | 20 | | + + + + + | Cervical Cancer | | 04/25/20 | | | Screening (Pap) | 1 | 20 | | + + + + + | Hepatitis C | Completed | 03/02/20 | | | Screening | | 19 | | + + + + + Procedures + +--------+ + + + | Procedure Name | Priori | Date/Time | Associated Diagnosis | Comments | | | ty | | | | + +--------+ + + + | HEPATITIS B SURFACE | Routin | 07/27/2020 | Immunity status | Results for this | | AB | e | 3:49 PM | testing | procedure are in the | | [...] section. | + +--------+ + + + from Last 3 Months Results Hepatitis B Surface Ab (07/27/2020 3:49 [...] | + + + | Performed at: - [place] [address], | REFERENCE LAB | | [place], [place] [id number] Dialysis Registered Nurse: Eros Godinez MD, Phone: | [facility] | | [phone] | | + + + + + + + + | Performing | Address | City/State/Zipcode | Phone Number | | Organization | | | | + + + + + | REFERENCE LAB | [address] | [place], [place] | [phone] | | [facility] | Drive [facility] | [address] | | + + + + + ECG 12 lead (06/16/2020 10:42 AM PDT) [...] | | | | | WILLIAM MARCUS ([id number]) on | | | | | | [...] | | | + +---------+ + + LABS - EXTERNAL SCAN (06/06/2020 12:00 AM PDT) + + + | Narrative | Performed At | + + + | Ordered by an | | | unspecified provider. | | + + + from Last 3 Months Insurance + +--------+ +--------+ +---------+--------+ | Payer | Benefi | Subscriber | Effect | Phone | Address | Type | | | t Plan | ID | gerber | | | | | | / | | Dates | | | | | | Group | | | | | | + +--------+ +--------+ +---------+--------+ | [employer] | MODA | [id number] | | [phone] | | Medica | | MEDICAID HMO | HEALTH | | [phone] | 1 | | id | | | MDCD | | esent | | | | | | [place] | | | | | | + +--------+ +--------+ +---------+--------+ + +--------+ +--------+ + + | Guarantor Name | Accoun | Relation to | Date | Phone | Billing Address | | | t Type | Patient | of | | | | | | | | | | + +--------+ +--------+ + + | Concha Paulino | Person | Mother [birth year] | [address], | | [place] | al/Fam | | [address] | [phone] | [address], | | | [place] | | | [address] (Home) | [place] [address] | + +--------+ +--------+ + + | Renny Saravia | Third | Self | [birth year] | [address] | | [place] | Libertarian | | 1999 | [phone] | [place] [address] | | | [place] | | | 9 (Home) | | | | ity | | | | | + +--------+ +--------+ + + | Renny Saravia | Person | Self [birth year] | [address] | | [place] | al/Fam | | 1999 | [phone] | [address], | | | [place] | | | 9 (Home) | [place] [address] | + +--------+ +--------+ + + Advance Directives + + + + + | Type | Date Recorded | Patient | Explanation | | | | Curtain Stretcher Assembler | | + + + + + | Power of | | | | | Human Resource Adviser | | | | + + + + + | Advance | 04/03/2017 11:18 | | | | Directive | AM | | | + + + + + + + + + + | Code Status | Date | Date | Comments | | | Activated | Inactivated | | + + + + + | Full Code | 09/23/2017 | 09/23/2017 | | | | 3:32 AM | 3:32 AM | | + + + + +
--- OUTSIDE RECORDS SUMMARY | ~2020-09-05 | XMS | Encounter Summary ---
Demographics + + + | Address | [address] [facility] | | | [place] [address] | + + + | Home Phone [...] | | | | | [place] [address] | | + + + + + | Concha Paulino | ECON | [address] | | | | | [place] [address] | | + + + + + Care Team Providers + +------+ + | Care Investment Executive Name | Role | Phone | + +------+ + | Leonid Osorio MD | PCP | | + +------+ + Reason for Visit +---------+--------+ + | Reason | Onset | Comments | | | Date | | +---------+--------+ + | Results | 11/04/ | | | | 2014 | | +---------+--------+ + Encounter Details +--------+ + + + + | Date | Type | Department | Care Team | Description | +--------+ + + + + | 11/04/ | Telephone | [facility] | Gonzalo Merchant, | Results | | 2014 | | PHYSIATRY [address] | MD [address] | | | | | [address] | [place] | | | | | [place] | [address] | | | | | [address] | | | | | | [phone] | | | +--------+ + + + [...] Telephone Encounter - Angelia Dee RN - 11/04/2015 11:19 AM PSTPatient called. Results given to guardian. elephone Encounter - Angelia Dee RN - 11/04/2015 11:19 AM PST----- Message from Gonzalo Merchant MD sent at 11/02/2015 11:54 PST ----- Angelia, Please let Renny Saravia, and her parents know that I have reviewed her new scolios is x-rays and it appears that her scoliosis as increase some since compared to last year. I will review the x-rays with her at her appointment 11/10/2015. Thank you, Gonzalo Merchant MD (Jr.) ----- Message ----- From: Rad Results In Shaun Sent: 11/02/2015 8:58 To: Gonzalo Merchant MD documented in this e ncounter Plan of Treatment +--------+ + + + + | Date | Type | Specialty | Care Team | Description | +--------+ + + + + | 09/07/ | Office | Cardiology | Tawana Mcdonald | | | 2019 | Visit | | GLEN Morales [address] | | | | | | [address] [facility] | | | | | | [place] [address] | | | | | | [phone] | | | | | | | | +--------+ + + + + | 09/22/ | Office | Physical Medicine | Gonzalo Merchant, | | | 2019 | Visit | and Rehabilitation | [address] | | | | | | [place] | | | | | | [address] | | | | | | | | +--------+ + + + + | 09/29/ | Virtual | Pain Medicine | Peggy Arreola | | 2019 | Office | | [address] | | | | Visit | | [place] | | | | | | [place], | | | | | | [place] [address] | | | | | | [phone] | | | | | | | | +--------+ + + + + | 01/24/ | Office | Family Medicine | Kutr Campbell, | | | 2020 | Visit | | DO [address] | | | | | | [place] | | | | | | [id number] | | | | | | | | +--------+ + + + + documented as of this encounter Visit Diagnoses Not on filedocumented in this encounter"
--- OUTSIDE RECORDS SUMMARY | ~2020-09-05 | XMS | Encounter Summary ---
Demographics + + + | Address | [address] [facility] | | | [place] [address] | + + + | Home Phone | | + + + | Preferred Language | Unknown | + + + | Marital Status | Single | + + + | Cheondoism Affiliation | [phone] | + + + [...] | | | | | [place] [address] | | + + + + + | Concha Paulino | ECON | [address] | | | | | [place] [address] | | + + + + + Care Team Providers + +------+ + | Care Tapper Hand Name | Role | Phone | + +------+ + | Leonid Osorio MD | PCP | | + +------+ + Reason for Visit + + + | Reason | Comments | + + + | Maycol | vertigo. [email or web address] | + + + Encounter Details +--------+---------+ + + + | Date | Type | Department | Care Team | Description | +--------+---------+ + + + | 04/07/ | Office | [facility] | Von Frank, | Labyrinthitisrosette | | 2015 | Visit | CARE [address] | [address] | (Primary Dx) | | | | [place] | [place] | | | | | [address] | [address] | | | | | [phone] | | | +--------+---------+ + + + [...] + + + | Blood Pressure | 108/80 | 04/07/2015 11:23 AM | | | | | PDT | | + + + + + | Pulse | 81 | 04/07/2015 11:23 AM | | | | | PDT | | + + + + + | Temperature | 36.7 C (98 F) | 04/07/2015 11:23 AM | | | | | PDT | | + + + + + | Respiratory Rate | 18 | 04/07/2015 11:23 AM | | | | | PDT | | + + + + + | Oxygen Saturation | 98% | 04/07/2015 11:23 AM | | | | | PDT | | + + + + + | Inhaled Oxygen | - | - | | | Concentration | | | | + + + + + | Weight | 50.8 kg (112 lb) | 04/07/2015 11:23 AM | | | | | PDT | | + + + + + | Height | 157.5 cm (5' 2") | 04/07/2015 11:23 AM | | | | | PDT | | + + + + + | Body Mass Index | 20.49 | 04/07/2015 11:23 AM | | | | | PDT | | + + + + + documented in this encounter Patient Instructions Patient Instructions Von Frank MD - 04/07/2015 12:16 PM PDTAvoid doing anything jes t would be hazardous if you're dizzy. Take the meclizine as directed. Recheck if worsening but otherwise as needed. documented in this encounter Progress Notes Von Frank MD - 04/07/2015 12:17 PM PDTFormatting of this note might be different fr om the original. Subjective: Patient ID: Renny Saravia is a 15 y.o. female. HPI Patient's medications, allergies, past medical, surgical, social and family histories were reviewed and updated as appropriate. This 15-year-old girl came in because of a day or 2 of dizziness like a spinning feeling. She denies nausea. She has no headache. She has a little ringing in her left ear only but no pain. She has had no cold or sore throat or cough. She has not had this before. She thompson s no other complaint. I reviewed her past history and meds. Review of Systems Constitutional: Negative. HENT: Negative. Respiratory: Negative. Cardiovascular: Negative. Gastrointestinal: Negative. Neurological: Positive for dizziness. Objective: Physical Exam Constitutional: She is oriented to person, place, and time. She appears well-developed and well-nourished. No distress. HENT: Head: Normocephalic. Right Ear: External ear normal. Left Ear: External ear normal. Nose: Nose normal. Mouth/Throat: Oropharynx is clear and moist. Eyes: Conjunctivae and EOM are normal. Pupils are equal, round, and reactive to light. Neck: Normal range of motion. Neck supple. Cardiovascular: Normal rate, regular rhythm and normal heart sounds. Pulmonary/Chest: Effort normal and breath sounds normal. Abdominal: Soft. There is no tenderness. Musculoskeletal: Normal range of motion. Neurological: She is alert and oriented to person, place, and time. Vitals reviewed. Assessment: 1. Labyrinthitis, left meclizine (ANTIVERT) 25 mg tablet DISCONTINUED: meclizine (ANTIVERT) 25 MG CHEW Plan: Please see the AVS for the plan unless outlined elsewhere. I've discussed the situation with her and the family. I think this is a simple viral labyr inthitis. I will give her some meclizine. She is to use this for a few days. She should a void doing anything that would be hazardous if she is dizzy until she is feeling better. Re check if worsening but otherwise as needed. documented in this e ncounter Plan of Treatment +--------+ + + + + | Date | Type | Specialty | Care Team | Description | +--------+ + + + + | 09/07/ | Office | Cardiology | Tawana Mcdonald | | | 2019 | Visit | | GLEN Morales [address] | | | | | | [address] [facility] | | | | | | [place] [address] | | | | | | [phone] | | | | | | | | +--------+ + + + + | 09/22/ | Office | Physical Medicine | Gonzalo Merchant, | | | 2019 | Visit | and Rehabilitation | [address] | | | | | | [place] | | | | | | [address] | | | | | | | | +--------+ + + + + | 09/29/ | Virtual | Pain Medicine | Peggy Arreola | | | 2019 | Office | | [address] | | | | Visit | | [place] | | | | | | [place], | | | | | | [place] [address] | | | | | | [phone] | | | | | | | | +--------+ + + + + | 01/24/ | Office | Family Medicine | Kurt Campbell, | | | 2020 | Visit | | DO [address] | | | | | | [place] | | | | | | [address] | | | | | | | | +--------+ + + + + documented as of this encounter Visit Diagnoses + + | Diagnosis | + + | Labyrinthitis, left - Primary | + + documented in this encounter
--- OUTSIDE RECORDS SUMMARY | ~2020-09-05 | XMS | Encounter Summary ---
Demographics + + + | Address | [address] [facility] | | | [place] [address] | + + + | Home Phone [...] | | | | | [place] [address] | | + + + + + | Concha Paulino | ECON | [address] | | | | | [place] [address] | | + + + + + Care Team Providers + +------+ + | Care Arch Cushion Skiving Machine Operator Name | Role | Phone | + +------+ + | Kurt Campbell DO | PCP | | + +------+ + Reason for Visit + + + | Reason | Comments | + + + | Fever | | + + + | Flank Pain | | + + + Encounter Details +--------+---------+ + + + | Date | Type | Department | Care Team | Description | +--------+---------+ + + + | 01/26/ | Office | [facility] | Kurt Campbell, | Flu-like symptoms | | 2020 | Visit | [facility] [place] | DO [address] | (Primary Dx); | | | | [address] | [place], [place] | Pyelonephritis; | | | | [place] | [address] | Viral respiratory | | | | [address] | | illness; Fever, | | | | [phone] | | unspecified fever | | | | | | cause | +--------+---------+ + + + Social History [...] + + + | Blood Pressure | 118/86 | 01/27/2020 10:25 AM | | | | | PST | | + + + + + | Pulse | 110 | 01/27/2020 10:25 AM | | | | | PST | | + + + + + | Temperature | 38.1 C (100.6 F) | 01/27/2020 10:25 AM | | | | | PST | | + + + + + | Respiratory Rate | 20 | 01/27/2020 10:25 AM | | | | | PST | | + + + + + | Oxygen Saturation | 98% | 01/27/2020 10:25 AM | | | | | PST | | + + + + + | Inhaled Oxygen | - | - | | | Concentration | | | | + + + + + | Weight | 47.6 kg (104 lb 15 | 01/27/2020 10:25 AM | | | | oz) | PST | | + + + + + | Height | 157.5 cm (5' 2") | 01/27/2020 10:25 AM | | | | | PST | | + + + + + | Body Mass Index | 19.19 | 01/27/2020 10:25 AM | | | | | PST [...] of this encounter Patient Instructions Patient Instructions Kurt Campbell DO - 01/27/2020 10:00 AM PSTCOVID- 19 (Novel Coronav irus) information. If you have had potential exposure to the COVID-19 virus and have symptoms including fever over(100.4), cough, shortness of breath, immediately call the local health department. [place]: [phone] [place]: [phone] Seek prompt medical attention if your illness is worsening for example developing worsening shortness of breath or difficulty breathing. Before seeking care, call your healthcare pro vider to make them aware of your symptoms. Put on a facemask that covers your nose and mout h before you into the facility. After putting on the face mask, clean your hands with soap and water or alcohol based hand enterprise application architect. What is novel coronavirus? Novel coronavirus (COVID-19) is a new virus strain spreading from [place]lb[place] in [place] and other countries, including the [place]. In most instances, cases outside of [place] have been associated with travelers from [place]. Health experts are concerned because little is known about this new virus and it has the potential to cause severe illness and pneumoni a in some people. How does novel coronavirus spread? Health experts are still learning the details. Currently, it is thought to spread: ? via respiratory droplets produced when an infected person coughs or sneezes. ? between people who are in close contact with one another (within about 6 feet). How severe is novel coronavirus? Experts are still learning about the range of illness from novel coronavirus. Reported case s have ranged from mild illness (similar to a common cold) to severe pneumonia that requires hospitalization. So far, deaths have been reported mainly in older adults who had other [facility] conditions. What are the symptoms? People who have been diagnosed with novel coronavirus have reported symptoms that may appea r in as few as 2 days or as long as 14 days after exposure to the virus. Symptoms include: fever, cough, and difficulty breathing. Who is at risk for novel coronavirus? Currently the risk to the general public is low. At this time, there are a small number of individual cases in the [place] To minimize the risk of spread, health officials are working wi healthcare providers to promptly identify and evaluate any suspected cases. Travelers to and from certain areas of the world may be at increased risk. Although coronav irus originated geographically in [facility], the disease is not specific to any ethnic gr oup. Citizen Of [place] ancestry or any other ancestry does not make a person more vulnerable t o this illness. How can I prevent from getting novel coronavirus? If you are traveling overseas (to [place] but also to other places) follow the [facility]NOTE 2] cheryl pina ce: wwwnc.cdc.govtravel. Right now, the novel coronavirus has not been spreading widely in the [place], so the re are no additional precautions recommended for the general public. Steps you can take to p revent spread of flu and the common cold will also help prevent coronavirus: ? Wash hands often with soap and water. If not available, use hand enterprise application architect. ? Avoid touching your eyes, nose, or mouth with unwashed hands. ? Avoid contact with people who are sick. ? Stay home while you are sick and avoid close contact with others. ? Cover your mouth/nose with a tissue or sleeve when coughing or sneezing. Currently, there are no vaccines available to prevent novel coronavirus infections. How is novel coronavirus treated? There are no medications specifically approved for coronavirus. Most people with mild coron avirus illness will recover on their own by drinking plenty of fluids, resting, and taking p ain and fever medications. However, some cases develop pneumonia and require medical care or hospitalization. documented in this encounter Progress Notes Kurt Campbell DO - 01/27/2020 10:00 AM PSTFormatting of this note might be different fro m the original. Subjective: Renny Saravia is a 20 y.o. female patient of Kurt Campbell DO. Chief Complaint: Fever and Flank Pain Fever The current episode started in the past 7 days. The problem has been waxing and waning. The maximum temperature noted was 101 to 101.9 F. Associated symptoms include congestion, cough ing and nausea. Pertinent negatives include no abdominal pain, chest pain, diarrhea, ear alejandra n, headaches, muscle aches, rash, sleepiness, sore throat, urinary pain, vomiting or wheezin g. She has tried acetaminophen for the symptoms. The treatment provided mild relief. Kidney infection: Patient presents today for ER follow up, Pyelonephritis was diagnosed. Her pain has subside d and she is feeling better. She completed her round of antibiotics. The patient's flank pa in is fully resolved. She denies dysuria, urinary frequency or urgency. No vaginal pain or discharge. URI: Fever of 100-101 for the past 3 days, dry cough present, no sinus pressure. Denies night sw eats and body aches. 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 She wears PPE in her lab . She has not opened or ran any tests on the samples.. She complains of nausea and shortness of breath. She has not been tested for FLU. She has a fri end of a friend that has come in contact with COVID-19 . PREVENTIVE CARE/PRIOR VISITS Health Maintenance Preventative Services TOPIC LAST DONE NEXT DUE Vaccine: Influenza 12/03/2013 07/26/2019 Cervical Cancer Screening (Pap) 01/24/2020 Well Child Check 2002 Vaccine: Dtap/Tdap/Td 07/25/2010 2010 Vaccine: Pneumococcal 19-64 2005 2.Immunizations Immunization History Administered Date(s) Administered DT (PED) 1999, 1999, 06/28/2000, 06/15/2004 DTP (PED) 1999 HEP A, 2 DOSE (PED/ADOL) 01/31/2001, 08/04/2001 HIB (PRP-T), 4 DOSE (PED) 1999, 1999, 1999, 06/28/2000 HPV, QUADRIVALENT, 3 DOSE (ADOL/ADULT) 08/05/2014, 11/08/2014, 04/12/2015 Hep B (PED/ADOL) 3 DOSE 1999, 1999, 1999 INFLUENZA TRIV W/PRES(PED/ADOL/ADULT),MULTIDOSE 09/14/2009, 10/02/2010, 12/03/2013 INFLUENZA, [id number], UNSPECIFIED 12/28/2009 INFLUENZA, UNSPECIFIED FORMULATION 09/14/2009, 10/02/2010, [...] prescription(s): acetaminoph en, albuterol, albuterol, bupropion, cyclobenzaprine, dicyclomine, diphenhydramine, epinephr ine auto-injector, flovent hfa, loratadine, lorazepam, meclizine, misc natural products, ond ansetron, ondansetron, ranitidine, and trazodone. Past Medical History [...] Last attempt to quit: 2017 Years since quittin.1 Smokeless tobacco: Current User Tobacco comment: vaping [...] Systems Constitutional: Positive for fatigue and fever. Negative for chills and diaphoresis. HENT: Positive for congestion. Negative for ear pain and sore throat. Respiratory: Positive for cough. Negative for chest tightness, shortness of breath and whee zing. Cardiovascular: Negative. Negative for chest pain. Gastrointestinal: Positive for nausea. Negative for abdominal pain, diarrhea and vomiting. Genitourinary: Negative. Negative for dysuria. Musculoskeletal: Negative. Skin: Negative. Negative for rash. Neurological: Negative. Negative for headaches. Psychiatric/Behavioral: Negative. Objective: Vitals: 01/27/20 1025 BP: 118/86 Pulse: 110 Resp: 20 Temp: (!) 38.1 C (100.6 F) SpO2: 98% Weight: 47.6 kg (104 lb 15 oz) Height: 1.575 m (5' 2") Physical Exam Constitutional: She is oriented to [...] Tympanic membrane mobility is normal . Nose: No sinus tenderness. No epistaxis. Mouth/Throat: Uvula [...] no rales. She exhibit s no tenderness. No CVA tenderness Abdominal: Soft. She exhibits no distension and no mass. There is no abdominal tenderness. There is no rebound and no guarding. Lymphadenopathy: She has no cervical adenopathy. Neurological: She is alert and oriented to person, place, and time. Skin: Skin is warm and dry. No rash noted. She is not diaphoretic. Psychiatric: She has a normal mood and affect. Her behavior is normal. Nursing note and vitals reviewed. Ortho Exam Results for orders placed or performed in visit on 01/27/20 Respiratory pathogen panel, NAAT Result Value Ref Range Parainfluenza 1 Not Detected Not Detected Adenovirus Not Detected Not Detected Human Metapneumovirus Not Detected Not Detected Rhinovirus/Enterovirus Not Detected Not Detected Parainfluenza 3 Not Detected Not Detected Assessment and Plans: 1. Flu-like symptoms POCT Influenza A/B NAAT Respiratory pathogen panel, NAAT 2. Pyelonephritis 3. Viral respiratory illness 4. Fever, unspecified fever cause 1. Flu-like symptoms viral respiratory illness - POCT Influenza A/B NAAT Exposure to COVID-19 is low. She does have fever and a mild respiratory illness today. Call made to the health department before sending patient home, care instructions provided to self isolate and not returning to work with the fever. Health department agreed and sending the patient home with precautions. She is given information on COVID-19 and self isolation precautions. We will ask [facility] to call her to monitor. Flu swab is negative Respiratory pathogens panel was negative Take acetaminophen or ibuprofen for fever and discomfort Drink plenty of fluids, warm liquids Take decongestant for congestion . Antihistamines may be helpful for congestion and sneezing Take expectorant or cough Use saline nasal drops as needed for nasal congestion Use cool mist vaporizer to keep air moist, especially at night. If throat is sore, gargle several times a day with warm salt water. Use frozen cough dr ops for additional relief Avoid smoking and exposure to second-hand smoke . Take medications as prescribed F/u with office if no improvement or if symptoms worsen 2. Pyelonephritis Pain has resolved, she should return if symptoms continue. No flank pain on exam. No complaints. Return if symptoms worsen or fail to improve. 25 minute visit > 50% counseling regarding the listed conditions, options for treatment, a nd possible risks. Care instructions and warning signs were discussed. Medications per orders. Side effects discussed. Labs and investigations per orders STEFF Cote, am acting as a scribe on behalf of, and in the presence of Kurt frederick DO. Electronically signed by: Lindsey Gonzalez, Financial Administrator 01/27/2020 10:20 AM I have reviewed and edited this note: Kurt Campbell DO 01/28/20 I, Kurt Campbell DO , personally performed the services described in this documentation, as scribed in my presence by Lindsey ARTIS and it is both accurate and complete. Randy cason signed by Kurt Campbell DO on 01/28/2020 at 12:16 PM . This note is dictated using [employer] voice recognition software. This note was dictated [...] | | | | | [place] [address] | | | | | | [phone] | | | | | | | | +--------+ + + + + | 09/22/ | Office | Physical Medicine | Gonzalo Merchant, | | | 2019 | Visit | and Rehabilitation | MD [address] | | | | | | [place] | | | | | | [id number] | | | | | | | | +--------+ + + + + | 09/29/ | Virtual | Pain Medicine | Peggy Arreola | | | 2019 | Office | | [address] | | | | Visit | | [place] | | | | | | [place], | | | | | | [place] [address] | | | | | | [phone] | | | | | | | | +--------+ + + + + | 01/24/ | Office | Family Medicine | Kurt Campbell, | | | 2020 | Visit | | DO [address] | | | | | | [place] | | | | | | [address] | | | | | | | | +--------+ + + + + documented as of this encounter Procedures + +--------+ + + + | Procedure Name | Priori | Date/Time | Associated Diagnosis | Comments | | | ty | | | | + +--------+ + + + | RESPIRATORY VIRUS | Routin | 01/27/2020 | Flu-like symptoms | Results for this | | ANTIGENS PROFILE | e | 11:02 AM | | procedure are in the | | | | PST | | results section. | + +--------+ + + + | POCT INFLUENZA A/B | Routin | 01/27/2020 | Flu-like symptoms | Results for this | | NAAT | e | 10:40 AM | | procedure are in the | | | | PST | | results section. | + +--------+ + + + documented in this encounter Results Respiratory pathogen panel, NAAT (01/27/2020 11:02 AM PST) + + + + + + | Component | Value | Ref Range | Performed | Pathologist | | | | | At | Signature | + + + + + + | Parainfluen | Not Detected | Not Detected | [facility] | | | za [address] | | | [facility] | | [facility] | | | | | | [facility] | | + + + + + + | Adenovirus | Not Detected | Not Detected | [facility] | | | | | | [facility] | | | | | [facility] | | | [facility] | | | | | | [facility] | | + + + + + + | Human | Not Detected | Not Detected | [facility] | | | Metapneumov | | | [facility] | | | irus | | | [facility] | | | | | | [facility] - | | | | | | LAB[facility]ATORY | | + + + + + + | Rhinovirus/ | Not Detected | Not Detected | [facility] | | | Enterovirus | | | [facility] | | | | | | [facility] | | | | | [facility] - | | | | | | [facility]ATORY | | + + + + + + | Parainfluen | Not Detected | Not Detected | [facility] | | | za 3 | | | [facility] | [facility] | | | | | | [facility] - | | | | | | [facility]ATORY | | + + + + + + + + | Specimen | + + | Body Fluid - Entire | | nasopharynx (body | | structure) | + + + + + + + | Performing | Address | City/State/Zipcode | Phone Number | | Organization | | | | + + + + + | [facility] | [address] | [place] | [phone] | | [facility] | | [address] | | | - LABORATORY | | | | + + + + + POCT Influenza A/B NAAT (01/27/2020 10:40 AM PST) + + + + + + [...] + | Diagnosis | + + | Flu-like symptoms - Primary Influenza with other respiratory manifestations | + + | Pyelonephritis Pyelonephritis, unspecified | + + | Viral respiratory illness Unspecified viral infection, in conditions classified | | elsewhere and of unspecified site | + + | Fever, unspecified fever cause | + + documented in this encounter Additional Health Concerns + + + + + | Infection | Onset Date | Last Indicated | Resolved Time | + + + + + | Rule out Respiratory | 01/27/2020 | 01/27/2020 | 01/27/2020 2:32 PM | | Infection | | | PST | + + + + + documented as of this encounter
--- OUTSIDE RECORDS SUMMARY | ~2020-09-05 | XMS | Encounter Summary ---
Demographics + + + | Address | [address] [facility] | | | [place] [address] | + + + | Home Phone [...] + + + | Author | Formerly [facility] | | | and [place] | + + + | Organization | [facility] | | | [...] | | | | | [place] [address] | | + + + + + | Concha Paulino | ECON | [address] | | | | | [place] [address] | | + + + + + Care Team Providers + +------+ + | Care Book Repairer Name | Role | Phone | + +------+ + | Kurt Campbell DO | PCP | | + +------+ + Reason for Visit + + + | Reason | Comments | + + + | Vaginal Bleeding | | + + + | Post-op Problem | | + + + Encounter Details +--------+ + + + + | Date | Type | Department | Care Team | Description | +--------+ + + + + | 05/01/ | Emergency | [facility] | Galen Antonio, | Postoperative | | 2019 - | | [facility] | MD [address] | vaginal bleeding | | | | CENTER [address] | [place] | following | | 05/02/ | | [place] | [id number] | genitourinary | | 2019 | | [id number] | | procedure (Primary | | | | [phone] | | Dx) | +--------+ + + [...] + + + | Blood Pressure | 117/91 | 05/02/2019 1:33 AM | | | | | PDT | | + + + + + | Pulse | 88 | 05/02/2019 1:40 AM | | | | | PDT | | + + + + + | Temperature | 37.4 C (99.4 F) | 05/01/2019 11:50 PM | | | | | PDT | | + + + + + | Respiratory Rate | 14 | 05/02/2019 1:40 AM | | | | | PDT | | + + + + + | Oxygen Saturation | 98% | 05/02/2019 1:40 AM | | | | | PDT | | + + + + + | Inhaled Oxygen | - | - | | | Concentration | | | | + + + + + | Weight | 46.3 kg (102 lb) | 05/01/2019 11:50 PM | | | | | PDT | | + + + + + | Height | 160 cm (5' 3") | 05/01/2019 11:50 PM | | | | | PDT | | + + + + + | Body Mass Index | 18.07 | 05/01/2019 11:50 PM | | | | | PDT [...] documented as of this encounter Discharge Instructions Galen Mares MD - 05/02/2019Return if fever, worsening pain, or worsening bleeding Follow-up with Dr. Monsalve later this week if symptoms persist documented in this encounter Medications at Time [...] ondansetron | Take 1 tablet by | 2 | 0 | 04/30/20 | | | (ZOFRAN) 4 mg tablet | mouth See Admin | tablet | | 19 | 9 | | | Instructions. If | | | | | | | nausea with prep. | | | | | | | Stop prep, take 1 | | | | | | | tab by mouth,wait 30 | | | | | | | min, restart prep | | | | | | | may repeat | | | | | + + [...] documented as of this encounter ED Notes Galen Antonio MD - 05/02/2019 12:00 AM PDTFormatting of this note might be different fro m the original. eMERGENCY dEPARTMENT eNCOUnter CHIEF COMPLAINT Chief Complaint Patient presents with Vaginal Bleeding Post-op Problem HPI Renny Saravia is a 19 y.o. female who presents complaining of increased vaginal ble eding and cramping in the pelvis and passing of clots tonight. Patient had aspiration D&C at 9 weeks gestation 4 days prior to coming to the emergency department. She denies any fevers , back pain, vomiting, dysuria, or diarrhea. She has not had any lightheadedness or syncope. PAST MEDICAL HISTORY Past Medical History: Diagnosis Date Abdominal pain Adverse food reaction Allergic rhinitis Anaphylaxis Anemia Anxiety Arthralgia Asthma Blood in stool Chest pain Depression Environmental allergies History of pneumonia Hypotension Kidney cysts right Migraine OCD (obsessive compulsive disorder) Oppositional defiant disorder Substance abuse (HCC) SURGICAL HISTORY Past Surgical History: Procedure Laterality Date COLONOSCOPY age 16 annual screening potentially recommended (cousin with early colon cancer. 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 diphenhydrAMINE (BENADRYL) 25 mg tablet Take 25 mg by mouth every 6 hours as needed for Itching. EPINEPHrine auto-injector 0.3 mg/0.3 mL injection Inject 0.3 mLs into the muscle as nee ded for Anaphylaxis. etonogestrel-ethinyl estradiol (NUVARING) 0.12-0.015 MG/24HR vaginal ring Place 1 each vaginally See Admin Instructions. Insert vaginally and leave in place for 3 consecutive week s, then remove for 1 week. FLOVENT HFA 44 MCG/ACT inhaler Inhale 2 puffs into the lungs Daily. ibuprofen (ADVIL, MOTRIN) 200 mg tablet Take 400 mg by mouth every 6 hours as needed fo r Pain. MISC NATURAL PRODUCTS PO Take by mouth. Parris's Mints. Natural CBD 5-10 mg as needed fo r headaches ondansetron (ZOFRAN ODT) 4 mg disintegrating tablet as needed. ondansetron (ZOFRAN) 4 mg tablet Take 1 tablet by mouth See Admin Instructions. If naus ea with prep. Stop prep, take 1 tab by mouth,wait 30 min, restart prep may repeat (Patient n ot taking: Reported on 05/01/2019) Pyridoxine HCl (VITAMIN B-6) 25 MG tablet Take 25 mg by mouth every 8 hours. sertraline (ZOLOFT) 50 mg tablet Take 1 tablet by mouth Daily. traZODone (DESYREL) 50 mg tablet Take 50 mg by mouth as needed. ALLERGIES Allergies Allergen Reactions Rey Flavor Hives Effexor [Venlafaxine] Anaphylaxis Nystatin Swelling Omeprazole Shortness Of Breath Penicillins Hives and Nausea And Vomiting Sulfa Antibiotics Shortness Of Breath Aspirin Other (See Comments) fever Fish Oil Unknown Whooping cough injection/ extreme reaction Macrobid [Nitrofuran Derivatives] Nausea And Vomiting Penicillins FAMILY HISTORY Family [...] Sudden Neg Hx SOCIAL HISTORY Social History Socioeconomic History Marital status: Single [...] bio mom and m-grandmother REVIEW OF SYSTEMS A 12 system review of systems is otherwise negative except as noted in the HPI above. PHYSICAL EXAM VITAL SIGNS: (first vital signs):Temp: 37.4 C (99.4 F) Pulse: 112 Resp: 16 SpO2: 97 % B P: 131/90 Constitutional: Well developed, Well nourished, No acute distress, Non-toxic appearance. HENT: Normocephalic, Atraumatic, Bilateral external ears normal, Oral mucosa moist, vat operator ior pharynx no exudates, Nose normal. Neck-supple, nontender, no meningismus, No stridor. Eyes: PERRL, EOMI, Conjunctiva normal, No discharge. Respiratory: Breath sounds equal bilaterally, no adventitious sounds, No chest wall tender ness. Cardiovascular: Normal rate, normal S1, S2, no murmurs, rubs, or gallops GI: Abdomen soft, left lower quadrant tenderness to palpation without rebound or guarding, non-distended, normal bowel sounds, no CVA tenderness : Musculoskeletal: Intact distal pulses, No edema, No tenderness, No cyanosis. Good range of motion in all major joints. No tenderness to palpation or major deformities noted. Back- No tenderness. Skin: Warm, Dry, No erythema, No rash or lesions. Lymphatic: Neurologic: Alert & oriented x 3, Cranial nerves II-XII intact, Normal sensation, motor, a nd strength in all four extremities, No focal deficits noted. Psychiatric: Affect normal, Judgment normal, Mood normal. Labs Reviewed CBC WITH DIFFERENTIAL - Abnormal; Notable for the following components: Result Value RBC 3.65 (*) Hemoglobin 11.0 (*) Hematocrit 33.5 (*) % Neutrophils 42.7 (*) % Eosinophils 10.1 (*) Absolute Eosinophils 0.84 (*) All other components within normal limits Narrative: IMMATURE GRANULOCYTES - For patients, use the following reference ranges: Trim. Absolute (K/uL) Percentage (%) 1st 0.003-0.091 K/uL 0.0-0.9% 2nd 0.007-0.247 K/uL 0.1-2.0% 3rd 0.018-0.456 K/uL 0.1-2.0% EXTRA GREEN TOP TUBE EXTRA BLUE TOP TUBE EXTRA GOLD TOP TUBE EXTRA GREEN TOP TUBE EXTRA GREEN TOP TUBE TYPE AND SCREEN RADIOLOGY CT Results: No results found. Ultrasound showed one and a half centimeter stripe of endometrium with spots of vascularity ED COURSE & MEDICAL DECISION MAKING Pertinent Labs & Imaging studies reviewed. (See chart for details) Patient presented with the aforementioned symptoms and physical exam findings. Laboratory a nd ultrasound findings as described above. I discussed her case with Dr. Monslave, on-call ObGy n, who recommended outpatient follow-up and conservative management. Patient is reassured an d is discharged home. She should return if new concerning symptoms develop. Last Set of Vital Signs: Temp: 37.4 C (99.4 F) Pulse: 88 Resp: 14 SpO2: 98 % BP: (!) 11 FINAL IMPRESSION 1. Postoperative vaginal bleeding following genitourinary procedure PLAN Follow-up Information Adalberto Monsalve MD. Schedule an appointment as soon as possible for a visit on 05/04/20. Specialty: Obstetrics and Gynecology Contact information: [address] [facility] [address] Discharge Medication List as of 05/02/2019 1:30 Galen Antonio MD 05/02/19 0427 Lubna Burks RN - 05/01/2019 11:46 PM PDTPt arrives by ambulance for vaginal bleeding. She reports she had at 9 weeks gestation on Saturday at [facility] [place]. She states bleeding slowed initially but then increased on Saturday. Today, many large clots with in termittent 06/03 sharp left lower quadrant abdominal pain. documented in this encounter Plan of Treatment +--------+ + + + + | Date | Type | Specialty | Care Team | Description | +--------+ + + + + | 09/07/ | Office | Cardiology | Tawana Mcdonald | | 2019 | Visit | | [address] | | | | | | [place] | | | | | | [place] [address] | | | | | | [phone] | | | | | | | | +--------+ + + + + | 09/22/ | Office | Physical Medicine | Gonzalo Merchant, | | 2019 | Visit | and Rehabilitation | MD [address] | | | | | | [place] | | | | | | [address] | | | | | | | | +--------+ + + + + | 09/29/ | Virtual | Pain Medicine | Peggy Arreola | | | 2019 | Office | | [address] | | | | Visit | | [place] | | | | | | [address] | | | | | | [place] [address] | | | | | | [phone] | | | | | | | | +--------+ + + + + | 01/24/ | Office | Family Medicine | Kurt Campbell, | | | 2020 | Visit | | DO [address] | | | | | | [place] | | | | | | [id number] | | | | | | | | +--------+ + + + + documented as of this encounter Procedures + +--------+ + + + | Procedure Name | Priori | Date/Time | Associated Diagnosis | Comments | | | ty | | | | + +--------+ + + + | US PELVIS W | STAT | 05/02/2019 | | Results for this | | TRANSVAGINAL | | 1:24 AM | | procedure are in the | | | | PDT | | results section. | + +--------+ + + + | EXTRA GREEN TOP TUBE | Routin | 05/02/2019 | | Results for this | | | e | 12:13 AM | | procedure are in the | | | | PDT | | results section. | + +--------+ + + + | EXTRA GREEN TOP TUBE | Routin | 05/02/2019 | | Results for this | | | e | 12:13 AM | | procedure are in the | | | | PDT | | results section. | + +--------+ + + + | EXTRA GREEN TOP TUBE | Routin | 05/02/2019 | | Results for this | | | e | 12:13 AM | | procedure are in the | | | | PDT | | results section. | + +--------+ + + + | EXTRA GOLD TOP TUBE | Routin | 05/02/2019 | | Results for this | | | e | 12:13 AM | | procedure are in the | | | | PDT | | results section. | + +--------+ + + + | EXTRA BLUE TOP TUBE | Routin | 05/02/2019 | | Results for this | | | e | 12:13 AM | | procedure are in the | | | | PDT | | results section. | + +--------+ + + + | CBC WITH | STAT | 05/02/2019 | | Results for this | | DIFFERENTIAL | | 12:13 AM | | procedure are in the | | | | PDT | | results section. | + +--------+ + + + | TYPE AND SCREEN | STAT | 05/02/2019 | | Results for this | | | | 12:13 AM | | procedure are in the | | | | PDT | | results section. | + +--------+ + + + documented in this encounter Results US Pelvis W Transvaginal (05/02/2019 1:24 AM PDT) + + | Specimen | + + | | + + + + + | Narrative | Performed At | + + + | US PELVIS W TRANSVAGINAL 05/02/2019 12:37 AM HISTORY: VAGINAL | [facility] | | BLEEDING Post bleeding. COMPARISON: None. PROTOCOL: | | | Guajardo scale and Doppler images of the pelvis with transabdominal and | | | transvaginal imaging. FINDINGS: Uterus: There are no focal | | | lesions. Size of the uterus is 10.1 x 6.8 x 6.0 cm. The endometrium | | | has an irregular appearance with areas of vascularity concerning for | | | retained products of conception. Endometrial thickness measures | | | between 1.7 through 2.0 cm. Right ovary: There is a hypoechoic | | | area measuring 1.2 x 1.3 x 1.3 cm that could represent an involuting | | | cyst. The size of the ovary is 3.3 x 4.0 x 1.3 cm. There is normal | | | Doppler flow. Left ovary: The parenchyma is normal. The size of | | | the ovary is 3.3 x 3.8 x 1.8 cm. There is normal Doppler flow. | | | Adnexa: Normal. Cul-de-sac: There is trace free fluid. | | | IMPRESSION - Irregular endometrium with multiple areas of vascularity | | | concerning for retained products of conception. A preliminary | | | report was given to Dr. Galen Antonio at 1:20 AM by the homicide squad lieutenant. | | | Dictated and Signed by: Blaise Crawford MD Electronically signed: | | | 05/02/2019 2:11 PM | | + + + + + | Procedure Note | + + | Shaun, Rad Results In - 05/02/2019 2:14 PM PDT US PELVIS W TRANSVAGINAL 05/02/2019 12:37 | | AM HISTORY: VAGINAL BLEEDINGPost bleeding.COMPARISON: None.PROTOCOL: Guajardo | | scale and Doppler images of the pelvis with transabdominal andtransvaginal | | imaging.FINDINGS:Uterus: There are no focal lesions. Size of the uterus is 10.1 x 6.8 x | | 6.0 cm.The endometrium has an irregular appearance with areas of vascularity | | concerningfor retained products of conception. Endometrial thickness measures between | | 1.7through 2.0 cm.Right ovary: There is a hypoechoic area measuring 1.2 x 1.3 x 1.3 cm | | that couldrepresent an involuting cyst. The size of the ovary is 3.3 x 4.0 x 1.3 cm. | | Thereis normal Doppler flow.Left ovary: The parenchyma is normal. The size of the ovary | | is 3.3 x 3.8 x 1.8cm. There is normal Doppler flow.Adnexa: Normal.Cul-de-sac: There is | | trace free fluid.IMPRESSION -Irregular endometrium with multiple areas of vascularity | | concerning for retainedproducts of conception.A preliminary report was given to | | Galen Antonio at 1:20 AM by thesonographer.Dictated and Signed by: Blaise Crawford MD | | Electronically signed: 05/02/2019 2:11 PM | |through 2.0 cm. | | | |Right ovary: There is a hypoechoic area measuring 1.2 x 1.3 x 1.3 cm that could | |represent an involuting cyst. The size of the ovary is 3.3 x 4.0 x 1.3 cm. There | |is normal Doppler flow. | | | |Left ovary: The parenchyma is normal. The size of the ovary is 3.3 x 3.8 x 1.8 | |cm. There is normal Doppler flow. | | | |Adnexa: Normal. | | | |Cul-de-sac: There is trace free fluid. | | | |IMPRESSION - | |Irregular endometrium with multiple areas of vascularity concerning for retained | |products of conception. | | | |A preliminary report was given to Dr. Galen Antonio at 1:20 AM by the | |homicide squad lieutenant. | | | |Dictated and Signed by: Blaise Crawford MD | | Electronically signed: 05/02/2019 2:11 PM | + + + +---------+ + + | Performing | Address | City/State/Zipcode | Phone Number | | Organization | | | | + +---------+ + + | [facility] | | | | + +---------+ + + Extra Green Top Tube (05/02/2019 12:13 AM PDT) + +-------+ + + + [...] [address] | [place] | [phone] | | [facility] | | [address] | | | - LABORATORY | | | | + + + + + Extra Green Top Tube (05/02/2019 12:13 AM PDT) + +-------+ + + + [...] + | [facility] | [address] | [place], [place] | [phone] | | [facility] | | [address] | | | - LABORATORY | | | | + + + + + Extra Gold Top Tube (05/02/2019 12:13 AM PDT) + +-------+ + + + | Component | Value | Ref Range | Performed | Pathologist | | | | | At | Signature | + +-------+ + + + | Extra Gold | Done | | [facility] | | | Top Tube | | | [facility] | | | | | | [...] [address] | [place] | [phone] | | [facility] | | [address] | | | - LABORATORY | | | | + + + + + Extra Blue Top Tube (05/02/2019 12:13 AM PDT) + +-------+ + + + | Component | Value | Ref Range | Performed | Pathologist | | | | | At | Signature | + +-------+ + + + | Extra Blue | Done | | [facility] | | | Top Tube | | | [facility] | | [...] [address] | [place] | [phone] | | [facility] | | [address] | | | - LABORATORY | | | | + + + + + Extra Green Top Tube (05/02/2019 12:13 AM PDT) + +-------+ + + + [...] + | [facility] | [address] | [place] | [phone] | | [facility] | | [address] | | | - LABORATORY | | | | + + + + + Type and Screen (05/02/2019 12:13 AM PDT) + + + + + + | Component | Value | Ref Range | Performed | Pathologist | | | | | At | Signature | + + + + + + | ABO | A | | [facility] | | | | [...] | | | Screen | | | [facility] | | [...] St | [place] | | | [facility] | | [address] | | | - BLOOD BANK | | | | + + + + + CBC with Differential (05/02/2019 12:13 AM PDT) + + + + + + | Component | Value | Ref Range | Performed | Pathologist | | | | | At | Signature | + + + + + + | White Blood | 8.3 | 4.0 - 11.0 K/uL | [facility] | | | Cells | | | [facility] | | | | | | MEDICAL | | | | | | CENTER - | | | | | | LABORATORY | | + + + + + + | Red Blood | 3.65 (L) | 3.70 - 5.20 | [facility] | | | Cells | | M/uL | [facility] | | | | | | MEDICAL | | | | | | CENTER - | | | | | | LABORATORY | | + + + + + + | Hemoglobin | 11.0 (L) | 11.5 - 16.0 | [facility] | | | | | g/dL | [facility] | | | | | | MEDICAL | | | | | | CENTER - | | | | | | LABORATORY | | + + + + + + | Hematocrit | 33.5 (L) | 34.0 - 47.0 % | [facility] | | | | | | [facility] | | | | | | MEDICAL | | | | | | CENTER - | | | | | | LABORATORY | | + + + + + + | MCV | 91.8 | 83.0 - 101.0 fL | [facility] [...] + + + + | MCHC | 32.8 | 32.0 - 36.0 | [facility] | | | | | g/dL | [facility] | | | | | | MEDICAL | | | | | | CENTER - | | | | | | LABORATORY | | + + + + + + | RDW-CV | 12.7 | <15.0 % | [facility] | | | | | | [facility] | | | | | | MEDICAL | | | | | | CENTER - | | | | | | LABORATORY | | + + + + + + | RDW-SD | 41.5 | 35.1 - 46.3 fL | [facility] | | | | | | [facility] | | | | | | MEDICAL | | | | | | CENTER - | | | | | | LABORATORY | | + + + + + + | Platelet | 311 | 140 - 440 K/uL | [facility] | | | Count | | | [facility] | | | | | | MEDICAL | | | | | | CENTER - | | | | | | LABORATORY | | + + + + + + | MPV | 9.1 | 6.5 - 12.4 fL | [facility] | | | | | | [facility] | | | | | | MEDICAL | | | | | | CENTER - | | | | | | LABORATORY | | + + + + + + | % | 42.7 (L) | 45.0 - 82.0 % | [facility] | | | Neutrophils | | | [facility] | | | | | | MEDICAL | | | | | | CENTER - | | | | | | LABORATORY | | + + + + + + | % | 34.8 | 20.0 - 45.0 % | [facility] | | | Lymphocytes | | | [facility] | | | | | | MEDICAL | | | | | | CENTER - | | | | | | LABORATORY | | + + + + + + | % Monocytes | 11.0 | 4.0 - 12.0 % | [facility] | | | | | | [facility] | | | | | | MEDICAL | | | | | | CENTER - | | | | | | LABORATORY | | + + + + + + | % | 10.1 (H) | 0.0 - 5.0 % | [facility] | | | Eosinophils | | | [facility] | | | | | | MEDICAL | | | | | | CENTER - | | | | | | LABORATORY | | + + + + + + | % Basophils | 1.0 | 0.0 - 1.0 % | [facility] | | | | | | [facility] | | | | | | MEDICAL | | | | | | CENTER - | | | | | | LABORATORY | | + + + + + + | % Immature | 0.4Comment: For | 0.0 - 0.4 % | [facility] | | | Granulocyte | patients, use the | | [facility] | | | s | special reference ranges | | MEDICAL | | | | listed below. | | CENTER - | | | | | | LABORATORY | | + + + + + + | Absolute | 3.56 | 1.80 - 8.50 | [facility] | | | Neutrophils | | K/uL | [facility] | | | | | | MEDICAL | | | | | | CENTER - | | | | | | LABORATORY | | + + + + + + | Absolute | 2.89 | 0.60 - 3.20 | [facility] | | | Lymphocytes | | K/uL | [facility] | | | | | | MEDICAL | | | | | | CENTER - | | | | | | LABORATORY | | + + + + + + | Absolute | 0.91 | 0.00 - 1.00 | [facility] | | | Monocytes | | K/uL | [facility] | | | | | | MEDICAL | | | | | | CENTER - | | | | | | LABORATORY | | + + + + + + | Absolute | 0.84 (H) | 0.00 - 0.40 | [facility] | | | Eosinophils | | K/uL | [facility] | | | | | | MEDICAL | | | | | | CENTER - | | | | | | LABORATORY | | + + + + + + | Absolute | 0.08 | 0.00 - 0.10 | [facility] | [...] | | | | | WBCs | [facility] | | | | [...] ranges: Trim. Absolute (K/uL) Percentage (%) | [facility] | | 1st 0.003-0.091 K/uL 0.0-0.9% 2nd 0.007-0.247 K/uL | [facility] | | 0.1-2.0% 3rd 0.018-0.456 K/uL 0.1-2.0% | - LABORATORY | + + + + + + + + | Performing | Address | City/State/Zipcode | Phone Number | | Organization | | | | + + + + + | [facility] | [address] | [place] | [phone] | | [facility] | | [address] | | | - LABORATORY | | | | + + + + + documented in this encounter Visit Diagnoses + + | Diagnosis | + + | Postoperative vaginal bleeding following genitourinary procedure - Primary | + + documented in this encounter Administered Medications + +---------+ +--------+-------+------+ | Medication Order | MAR | Action | Dose | Rate | Site | | | Action | Date | | | | + +---------+ +--------+-------+------+ | sodium chloride 0.9% (NS) bolus | New Bag | 05/02/20 | 1,000 | 2000 | | | 1,000 mL 1,000 mL, Intravenous, | | 19 12:14 | mLs | mL/hr | | | Administer over 30 Minutes, | | AM PDT | | | | | ONCE, 05/02/19 at 0005, For 1 | | | | | | | dose | | | | | | + +---------+ +--------+-------+------+ +---+---+ | | | +---+---+ documented in this encounter
--- OUTSIDE RECORDS SUMMARY | ~2020-09-05 | XMS | Encounter Summary ---
Demographics + + + | Address | [address] | | | [place] [address] | + + + | Home Phone [...] | | | | | [place] [address] | | + + + + + | Concha Paulino | ECON | [address] | | | | | [place] [address] | | + + + + + Care Team Providers + +------+ + | Care Seal Mixer Name | Role | Phone | + +------+ + PCP | Unavailable | + +------+ + Encounter Details +--------+ + + + + | Date | Type | Department | Care Team | Description | +--------+ + + + + | 12/27/ | Hospital | [facility] | | | | 2004 | Encounter [facility] C[facility] [address] | | | | | | [place] | | | | | | [address] | | | | | | [phone] | | | +--------+ + + + [...] | | | | | [place] [address] | | | | | | [phone] | | | | | | | | +--------+ + + + + | 09/22/ | Office | Physical Medicine | Gonzalo Merchant, | | | 2019 | Visit | and Rehabilitation | MD [address] | | | | | | [place] | | | | | | [id number] | | | | | | | | +--------+ + + + + | 09/29/ | Virtual | Pain Medicine | Peggy Arreola | | | 2019 | Office | | [address] | | | | Visit | | [place] | | | | | | [place] | | | | | | [place] [address] | | | | | | [phone] | | | | | | | | +--------+ + + + + | 01/24/ | Office | Family Medicine | Kurt Campbell, | | | 2020 | Visit | | DO Evon [address] | | | | | | [place] | | | | | | [phone] | | | | | | | | +--------+ + + + + documented as of this encounter Visit Diagnoses Not on filedocumented in this encounter"
--- OUTSIDE RECORDS SUMMARY | ~2020-09-05 | XMS | Encounter Summary ---
Demographics + + + | Address | [address] | | | [place] [address] | + + + | Home Phone | | + + + | Preferred Language | Unknown | + + + | Marital Status | Single | + + + | Restoration Affiliation | [id number] | + + + [...] | | | | | [place] [address] | | + + + + + | Concha Zeeshanletty | ECON | [address] | | | | | [place] [address] | | + + + + + Care Team Providers + +------+ + | Care Truck Trailer Final Inspector Name | Role | Phone | + [...] | Physical | Diagnoses | Vawter, | Gonzalo Merchant | | | Services | Medicine and | Chronic | Kurt High DO | Raul Weir MD [address] | | | Required | Rehabilitatio | midline | [address] | | | | n | thoracic | [address] [place] | [place], | | | | | back pain | [place], [place] | [place] [address] | | | | | Scoliosis of | [address] | Phone: | | | | | thoracic | Phone: | [phone] | | | | | spine, | [phone] | Fax: | | | | | unspecified | Fax: | [phone] | | | | | scoliosis | [phone] | | | | | | type | | | +--------+ + + + + + Evaluate & Treat (Routine) [...] [place] | | | Services | Therapy / | Scoliosis | Kurt High DO | [place] | | | Required | Rehabilitatio | of thoracic | [address] | Therapy [address] | | | | n | spine, | [address] [place] [address] | | | | | unspecified | [place], [place] | [place], | | | | | scoliosis | [address] | [place] [address] | | | | | type | Phone: | Phone: | | | | | Chronic | [phone] | [phone] | | | | | midline | Fax: | Fax: | | | | | thoracic | [phone] | [phone] | | | | | back pain | | | | | | | Procedures | | | | | | | PT | | | +--------+ + + + + + Reason for Visit + + + | Reason | Comments | + + + | Back Pain | | + + + Encounter Details +--------+---------+ + + + | Date | Type | Department | Care Team | Description | +--------+---------+ + + + | 06/17/ | Office | [facility] | Kurt Campbell, | Chronic midline | | 2019 | Visit | [facility] [place] | DO [address] | thoracic back pain | | | | [address] | [place] | (Primary Dx); | | | | [place] | [address] | Scoliosis of | | | | [address] | | thoracic spine, | | | | [phone] | | unspecified | | | | | | scoliosis type; Mild | | | | | | persistent asthma | | | | | | without | | | | | | complication; | | | | | | Depression, | | | | | | unspecified | | | | | | depression type; | | | | | | Anxiety; Panic | | | | | | attack | +--------+---------+ + + + Social History [...] + + + | Blood Pressure | 98/62 | 06/17/2019 1:45 PM | | | | | PDT | | + + + + + | Pulse | 102 | 06/17/2019 1:45 PM | | | | | PDT | | + + + + + | Temperature | 37.4 C (99.4 F) | 06/17/2019 1:45 PM | | | | | PDT | | + + + + + | Respiratory Rate | 16 | 06/17/2019 1:45 PM | | | | | PDT | | + + + + + | Oxygen Saturation | 97% | 06/17/2019 1:45 PM | | | | | PDT | | + + + + + | Inhaled Oxygen | - | - | | | Concentration | | | | + + + + + | Weight | 48 kg (105 lb 13.1 | 06/17/2019 1:45 PM | | | | oz) | PDT | | + + + + + | Height | - | - | | + + + + + | Body Mass Index | 18.75 | 05/27/2019 7:49 AM | | | [...] encounter Patient Instructions Patient Instructions Miya Jolly, Field Sampling Technician - 06/17/2019 1:45 PM PDTReferral s: During your office today we have ordered referrals for you - physical therapy and physiatry -. The referral will be reviewed by our Insurance Authorization Coordinators. Once approved the order will be sent to the referred providers office. The referred providers office will contact you to schedule. If you have not heard to schedule your referral/s within 10 ine , please call our Referral Community Theater Actor at [phone] to check on the status of the re ferral authorization. Take Ativan 0.25-0.5 mg as needed for flying documented in this encounter Progress Notes Kurt Campbell DO - 06/17/2019 1:45 PM PDTFormatting of this note might be different fro m the original. Subjective: Renny Saravia is a 19 y.o. female patient of Kurt Campbell DO. Chief Complaint: Back Pain Back Pain Chronicity: ongoing. Episode onset: about 2 months ago. The problem occurs intermittently ( usually when sitting or standing for a longer duration). The problem has been waxing and wan ing since onset. The pain is present in the thoracic spine. The quality of the pain is descr ibed as stabbing. The pain does not radiate. The pain is at a severity of 0/10 (can get up t o 8/10). The pain is moderate. The pain is the same all the time. The symptoms are aggravate d by sitting, position and standing (lifting). Stiffness is present in the morning. Associat ed symptoms include abdominal pain and leg pain (left calf). Pertinent negatives include no bladder incontinence, bowel incontinence, chest pain, dysuria, fever, headaches, numbness, t ingling or weakness. She has tried NSAIDs, walking, ice and heat for the symptoms. The treat ment provided moderate relief. Anxiety/ Depression/ Panic Attacks Patient is here for follow-up of Depression and anxiety. Taking Wellbutrin 150 mg daily. Panic attacks and increased anxiety usually happen while traveling. Patient reports that javier raya is flying to [place] in June to seek potential college. She is requesting Ativan f or the flight. Symptoms are improving Sleep Disturbance: Yes troubles staying asleep Are you currently in counseling: yes. Seeing psychologist Dr. Aiken in [place] a w [place]. PHQ9 SCORE Office Visit from 04/01/2019 in [facility] [place] Office Visit from 019 in [facility] PHQ-9 Total Score (Patient Health Questionnaire) 16 19 ANXIETY/STRESS SCORE Office Visit from 04/01/2019 in [facility] Office Visit from 019 in [facility] MARIE-7 Score (General Anxiety Disorder) 21 20 PREVENTIVE CARE/PRIOR VISITS 1. Any recommendations from Health Maintenance: No Preventative Services TOPIC LAST DONE NEXT DUE Vaccine: Influenza 12/03/2013 07/26/2019 Well Child Check 2002 Vaccine: Dtap/Tdap/Td 07/25/2010 07/26/2010 Vaccine: Pneumococcal 19-64 (Ppsv23 Only) Medium Risk 2018 2. Any immunizations necessary: yes Tdap, pneumococcal Immunization History Administered Date(s) Administered DT (PED) 1999, 1999, 06/28/2000, 06/15/2004 DTP (PED) 1999 HEP A, 2 DOSE (PED/ADOL) 01/31/2001, 08/04/2001 HIB (PRP-T), 4 DOSE (PED) 1999, 1999, 1999, 06/28/2000 HPV, QUADRIVALENT, 3 DOSE (ADOL/ADULT) 08/05/2014, 11/08/2014, 04/12/2015 Hep B (PED/ADOL) 3 DOSE 1999, 1999, 1999 INFLUENZA TRIV W/PRES(PED/ADOL/ADULT),MULTIDOSE 09/14/2009, 10/02/2010, 12/03/2013 INFLUENZA, [id number], UNSPECIFIED 12/28/2009 INFLUENZA, UNSPECIFIED FORMULATION 09/14/2009, 10/02/2010, [...] following prescription(s): acetaminoph en, albuterol, albuterol, bupropion, diphenhydramine, epinephrine auto-injector, etonogestre l-ethinyl estradiol, flovent hfa, ibuprofen, loratadine, lorazepam, misc natural products, o ndansetron, and trazodone. Past Medical History She has [...] Last attempt to quit: 2017 Years since quittin.5 Smokeless tobacco: Current User Tobacco comment: vaping right now 3 mg nicotine ocassionally Substance and Sexual Activity Alcohol use: Not Currently Alcohol/week: 3.0 oz Types: 5 Glasses of wine per week Drug use: Not Currently Types: Marijuana Comment: CBD oil as needed Sexual activity: Yes Partners: Male control/protection: Yes Social History Narrative Lives with bio mom and m-grandmother Review of Systems Constitutional: Negative for fever. Cardiovascular: Negative for chest pain. Gastrointestinal: Positive for abdominal pain. Negative for bowel incontinence. Genitourinary: Negative for bladder incontinence and dysuria. Musculoskeletal: Positive for back pain. Neurological: Negative for tingling, weakness, numbness and headaches. Objective: Vitals: 06/17/19 1345 BP: 98/62 Pulse: 102 Resp: 16 Temp: 37.4 C (99.4 F) TempSrc: Temporal SpO2: 97% Weight: 48 kg (105 lb 13.1 oz) Physical Exam Constitutional: She is oriented to person, place, and time. She appears well-developed and well-nourished. No distress. Appropriately dressed and groomed HENT: Head: Normocephalic and atraumatic. Eyes: Conjunctivae are normal. Musculoskeletal: She exhibits no edema. Spinous process tend at T7 Muscle tenderness bilaterally No lumbar tenderness Scoliosis which is convent to the right in her spine. Neurological: She is alert and oriented to [...] Antibody Screen Negative Assessment and Plans: 1. Chronic midline thoracic back pain [facility]B [facility] AMB REFERRAL TO [facility] 2. Scoliosis of thoracic spine, unspecified scoliosis type AMB Referral to [facility] AMB REFERRAL TO [facility] 3. Mild persistent asthma without complication albuterol (PROAIR HFA) 90 mcg/puff inhaler 4. Depression, unspecified depression type buPROPion (WELLBUTRIN XL) 150 mg 24 hr tablet 5. Anxiety buPROPion (WELLBUTRIN XL) 150 mg 24 hr tablet LORazepam (ATIVAN) 0.5 mg tablet 6. Panic attack buPROPion (WELLBUTRIN XL) 150 mg 24 hr tablet LORazepam (ATIVAN) 0.5 mg tablet 1. Chronic midline thoracic back pain 2. Scoliosis of thoracic spine, unspecified scoliosis type Scoliosis has increased in severity compared to previous xray. Pain can get pretty debilitating and is limiting regular activities. I do not think that she needs bracing or surgery at this time. Referral placed for physical therapy. Referral placed for Physiatry for possible non-surgical interventions. - AMB Referral to [facility] - AMB REFERRAL TO [facility] 3. Mild persistent asthma without complication Refilled. - albuterol (PROAIR HFA) 90 mcg/puff inhaler; Inhale 2 puffs into the lungs every 6 hours a s needed for Wheezing or Shortness of Breath. Dispense: 18 g; Refill: 0 4. Depression, unspecified depression type 5. Anxiety 6. Panic attack Stable. Continue to follow up with Psychology and her psychiatrist at [facility].. Continue with medications, Wellbutrin refilled. Prescription for Ativan 0.25-0.5 mg prn for flying. Medication risks and benefits were reviewed in detail today with the patient who expresses understanding. Pt will call or return with problems or side effects. - buPROPion (WELLBUTRIN XL) 150 mg 24 hr tablet; Take 1 tablet by mouth Daily. Dispense: 3 0 tablet; Refill: 0 - LORazepam (ATIVAN) 0.5 mg tablet; Take 0.5-1 tablets by mouth every 6 hours as needed for Anxiety (flying). Dispense: 8 tablet; Refill: 0 Return if symptoms worsen or fail to improve. Care instructions and warning signs were discussed. Medications per orders. Side effects discussed. Labs and investigations per orders I STEFF Palmer, am acting as a scribe on behalf of, and in the presence of Kurt bee DO. Electronically signed by: Miya Jolly, Field Sampling Technician 06/17/2019 13:46 I have reviewed and edited this note: Kurt Campbell DO 06/18/19 I, Kurt Campbell DO , personally performed the services described in this documentation, as scribed in my presence by Miya Jolly and it is both accurate and complete. Electronical ly signed by Kurt Campbell DO on 06/18/2019 at 10:54 . This note is dictated using [email or web address] voice recognition software. This note was dictated [...] | | | | | | [facility] [facility] | | | | | | [place] [address] | | | | | | [phone] | | | | | | | | +--------+ + + + + | 09/22/ | Office | Physical Medicine | Gonzalo Merchant, | | | 2019 | Visit | and Rehabilitation | MD Dane Johnson | | | | | | [place] | | | | | | [address] | | | | | | | | +--------+ + + + + | 09/29/ | Virtual | Pain Medicine | Peggy Arreola | | 2019 | Office | | [address] | | | | Visit | | [address] | | | | | | [place] | | | | | | [place] [address] | | | | | | [phone] | | | | | | | | +--------+ + + + + | 01/24/ | Office | Family Medicine | Kurt Campbell, | | | 2020 | Visit | | DO [address] | | | | | | [place] | | | | | | [address] | | | | | | | | +--------+ + + + + + + +--------+ + + | Name | Type | Priori | Associated Diagnoses | Order Schedule | | | | ty | | | + + +--------+ + + | AMB Referral to [facility] | Outpatient | Routin | Scoliosis of | Ordered: 06/18/2019 | | [facility] | Referral | e | thoracic spine, | | | PHYSICAL THERAPY | | | unspecified | | | | | | scoliosis type | | | | | | Chronic midline | | | | | | thoracic back pain | | + + +--------+ + + | AMB REFERRAL TO [facility] | Outpatient | Routin | Chronic midline | Ordered: 06/18/2019 | | [facility] | Referral | e | thoracic back pain | | | | | | Scoliosis of | | | | | | thoracic spine, | | | | | | unspecified | | | | | | scoliosis type | | + + +--------+ + + documented as of this encounter Visit Diagnoses + + | Diagnosis | + + | Chronic midline thoracic back pain - Primary | + + | Scoliosis of thoracic spine, unspecified scoliosis type | + + | Mild persistent asthma without complication Unspecified asthma | + + | Depression, unspecified depression type | + + | Anxiety Anxiety state, unspecified | + + | Panic attack Panic disorder without agoraphobia | + + documented in this encounter"
--- OUTSIDE RECORDS SUMMARY | ~2020-09-05 | XMS | Encounter Summary ---
Demographics + + + | Address | [address] | | | [place] [address] | + + + | Home Phone | | + + + | Preferred Language | Unknown | + + + | Marital Status | Single | + + + | Nondenominational Affiliation | [phone] | + + + [...] | | | | | [place] [address] | | + + + + + | Concha Paulino | ECON | [address] | | | | | [place] [address] | | + + + + + Care Team Providers + +------+ + | Care Liability Claims Manager Name | Role | Phone | + +------+ + | Leonid Osorio MD | PCP | | + +------+ + Reason for Visit + + + | Reason | Comments | + + + | Follow-up | | + + + | Palpitations | | + + + Follow Up (Routine) +--------+--------+ + + + + | Status | Reason | Specialty | Diagnoses / | Referred By | Referred To | | | | | Procedures | Contact | Contact | +--------+--------+ + + + + | Closed | | Pediatric | Diagnoses | Jo, | [facility] | | | | Cardiology | | MD Leonid | [facility] | | | | | Palpitations | [address] | Congenital | | | | | | [facility] | Heart Disease | | | | | | [place] | [address] | | | | | | [address] | [address] | | | | | | Phone: | [phone] | | | | | | [phone] | [place] | | | | | | Fax: | [address] | | | | | | [phone] | Phone: | | | | | | | [phone] | | | | | | | Fax: | | | | | | | [phone] | +--------+--------+ + + + + Encounter Details +--------+ + + + + | Date | Type | Department | Care Team | Description | +--------+ + + + + | 06/29/ | Off-Site | [facility] | Milton Quinones | Heart palpitations | | 2015 | Visit | for Congenital Heart | Americo Crow MD [address] | (Primary Dx); | | | | Disease [address] | [address] | Palpitation | | | | [address] | [place] [address] | | | | | [place] | [phone] | | | | | [address] | | | | | | [phone] | | | +--------+ + + + [...] + + + | Blood Pressure | 106/70 | 06/28/2016 12:45 PM | | | | | PDT | | + + + + + | Pulse | 74 | 06/28/2016 12:45 PM | | | | | PDT [...] + + + + | Weight | 48.9 kg (107 lb 12.8 | 06/28/2016 12:45 PM | | | | oz) | PDT | | + + + + + | Height | 161 cm (5' 3.39") | 06/28/2016 12:45 PM | | | | | PDT | | + + + + + | Body Mass Index | 18.86 | 06/28/2016 12:45 PM | | | | | PDT | | + + + + + documented in this encounter Patient Instructions Patient Instructions Milton Quinones Jr., MD - 06/28/2016 1:18 PM PDT No activity or dietary restrictions necessary. May participate in all activities. No cardiac medications required. No SBE prophylaxis. Spectocor monitor to be arranged. Increase fluids to 60-80 oz /day. Pediatric cardiology follow up PRN , sooner if new cardiac concerns. Electronically s igned by Milton Quinones Jr., MD at 06/28/2016 1:19 PM PDT documented in this encounter Progress Notes Milton Quinones Jr., MD - 06/28/2016 12:52 PM PDTFormatting of this note might be dif ferent from the original. [facility] for Congenital Heart Disease Follow Up Note Patient Name//AGE: Renny Saravia / 2000 / 16 y.o. Date of Visit: 06/28/2016 Primary Care Provider: Leonid Osorio Reason for follow up: F/U palpitations and dizziness Interval History: Renny is a 16 y.o. female with history of nonspecific palpitations and lightheadedness. Tanja raya was last evaluated in August 2015. She has had multiple evaluations in the past and [facility] as well as in our clinic. Her prior evaluation has a normal electrocardiogram and ambu latory monitors. She has also had a normal echocardiogram in the past. At her last evaluat micheline was noted to have some orthostatic symptoms. She continues to report frequent episodes of her heart racing. Many of her descriptions sound suggestive of SVT with sudden onset and termination. There appears to be no predictable events that occur before her tachycardia. She admits to poor free water intake but denies excessive caffeine. Her symptoms are gener ally not related to anxiety episodes. She denies any syncope with or without out exertion. There is no history of any recurrent lower respiratory tract symptoms. Past Medical History: Past Medical History Diagnosis Date Depression Asthma Migraine Kidney cysts right Depression Hypotension Surgical History: Past Surgical History Procedure Laterality Date Dental [...] 5 mg by mouth nightly. sertraline (ZOLOFT) 50 mg tablet (Taking) Take 50 mg by mouth Daily. XULANE 150-35 MCG/24HR patch (Taking) Review of Systems: Constitutional: No fever or chills, growth problems. Eyes: No visual difficulties. HENT: No chronic ear/nose/throat infections, or hearing problems. Respiratory: No asthma or lung problems Cardiovascular: see HPI GI: No abdominal pain, nausea, vomiting, or diarrhea : No urinary or kidney problems. Musculoskeletal: No back pain or joint pain Integument: No rash, skin problems, or unusual birthmarks. Neurologic: No headache, seizures, loss of consciousness, weakness or paralysis, and loss of developmental milestones Endocrine: No thyroid problems. Psychiatric: No behavioral problems, + Depression, see above. Vital signs: Filed Vitals: 06/28/16 1245 BP: 106/70 Pulse: 74 Height: 1.61 m (5' 3.39") Weight: 48.898 kg (107 lb 12.8 oz) Growth Percentiles: 18%ile (Z=-0.90) based on CDC 2-20 Years wmdqif-nqd-ysk data using gerson ls from 06/28/2016. 38%ile (Z=-0.31) based on CDC 2-20 Years xecgdmy-pir-lzu data using vitals from 06/28/2016. Body mass index is 18.86 kg/(m^2). Physical Examination: General: Non dysmorphic appearing female, interactive and in no distress. HEENT: Normocephalic. Normal oropharynx. No focus of infection. Neck: Supple with full range of motion. No masses, thyromegaly, or JVD. Lungs: Clear to auscultation. Symmetric breath sounds. No wheezes, rales, or rhonchi. Cardiovascular: No visible chest wall asymmetries. Rate and rhythm are normal for age. Norm al precordial activity. S1 and S2 are normal. Physiologic S2 splitting. No clicks, gallops o r rubs are heard. No pathologic murmurs are noted. Abdomen: Soft and non tender. No hepatosplenomegaly. No abdominal bruits noted. Extremities: Warm and well perfused. Equal upper and lower extremity pulses. No cyanosis, c lubbing or edema. Skin: No rashes. No neurocutaneous findings. Neurologic: Grossly normal tone. No obvious focal deficits. Diagnostic Studies: ECG: Normal sinus rhythm. Normal axis and voltage for age. Normal corrected QT interval . No ectopic beats. ECHO: Previous study at [facility]: normal by report Assessment & Recommendations: Palpitation This young lady continues to have nonspecific symptoms and some palpitations which by her r eport are suggestive of nonsustained tachycardia. Past evaluations have been unsuccessful i n documenting her tachycardia. She did have an event monitor last year but according to her she had no typical symptoms. I again reassured her that she has nothing based on her past evaluation supporting sudden cardiac risk. Her electrocardiogram is not suggestive of preexcitation or other obvious electrical substrate for arrhythmia. I again reinforced the importance of aggressive attention to extra free water, a liberalized salt intake, avoidanc e of excessive caffeine and regular aerobic exercise. Since she is having more symptoms jes t appear to be more frequent than in the past, I would like to perform outpatient telemetry using the [employer]. Hopefully this will allow us to document some of her clinical symptoms and either lay this issue to rest or pursue more formal electrophysiologic interven tion. The family will be hearing from our office regarding scheduling and we will notify th melissa after her monitoring period has been completed. We reviewed indications for emergency de partment treatment. There are no contraindications for continuing her behavioral/anxiety me dications. Thank you for the opportunity of sharing in this patients cardiac care. Please do not hesit ate to contact our office for any additional information from our electronic health record o r to discuss any new concerns. Additional Plans: Return if concerns: phone F/U after Spectocor monitor. Orders Placed This Encounter Procedures ECG 12 lead Event monitor - 4 week Note: This report was partially dictated with the use of voice recognition software. It ma y contain inadvertent spelling or grammatical errors which were not detected in the editing process. Should you have any questions or concerns, please do not hesitate to contact me annemarie [email or web address]. Electronically signed by: Milton Quinones Jr, MD 06/28/2016 13:23 CC: Leonid RaulJosé Osorio [phone] documented in this encounter Procedure Notes Milton Quinones Jr., MD - 06/28/2016 12:27 PM PDTAssociated Order(s): ECG 12 LEAD - PBProcedure(s): ECG 12 LEAD - PBPre-Procedure Diagnose(s): Heart palpitations Normal sinus rhythm. Normal P waves. Normal QRS axis, voltages and morphology. Normal ST segments and T waves. Normal QT interval. Normal ECG Recommendations: None. Milton Quinones Jr, MD [facility] Congenital Heart Disease Pediatric Cardiology documented in this encounter Miscellaneous Notes Assessment & Plan Note - Milton Quinones Jr., MD - 06/28/2016 12:57 PM PDTAssociated Problem(s): PalpitationThis young lady continues to have nonspecific symptoms and some palpi tations which by her report are suggestive of nonsustained tachycardia. Past evaluations thompson ve been unsuccessful in documenting her tachycardia. She did have an event monitor last yea r but according to her she had no typical symptoms. I again reassured her that she has noth ing based on her past evaluation supporting sudden cardiac risk. Her electrocardiogra m is not suggestive of preexcitation or other obvious electrical substrate for arrhythmia. I again reinforced the importance of aggressive attention to extra free water, a liberalized salt intake, avoidance of excessive caffeine and regular aerobic exercise. Since she is thompson ving more symptoms that appear to be more frequent than in the past, I would like to perform outpatient telemetry using the [employer]. Hopefully this will allow us to document some of her clinical symptoms and either lay this issue to rest or pursue more formal elect rophysiologic intervention. The family will be hearing from our office regarding scheduling and we will notify them after her monitoring period has been completed. We reviewed indica tions for emergency department treatment. There are no contraindications for continuing her behavioral/anxiety medications.Electronically signed by Milton Quinones Jr., MD at 02/2016 1:23 PM PDTdocumented in this encounter Plan of [...] | | | | | | [place] [address] | | | | | | [phone] | | | | | | | | +--------+ + + + + | 09/22/ | Office | Physical Medicine | Gonzalo Merchant, | | | 2019 | Visit | and Rehabilitation | MD Dane Johnson | | | | | | [place] | | | | | | [address] | | | | | | | | +--------+ + + + + | 09/29/ | Virtual | Pain Medicine | Peggy Arreola | | 2019 | Office | | [address] | | | | Visit | | [place] | | | | | | [place] | | | | | | [place] [address] | | | | | | [phone] | | | | | | | | +--------+ + + + + | 01/24/ | Office | Family Medicine | Kurt Campbell, | | | 2020 | Visit | | DO [address] | | | | | | [place] | | | | | | [address] | | | | | | | | +--------+ + + + + documented as of this encounter Procedures + +--------+ + + + | Procedure Name | Priori | Date/Time | Associated Diagnosis | Comments | | | ty | | | | + +--------+ + + + | ECG 12 LEAD - PB | Routin | 06/28/2016 | Heart palpitations | Results for this | | | e | 12:52 PM | | procedure are in the [...] 8: Leonid Soto | | | MD Gama Osoriocarter Saravia ( 2000) , underwent ambulatory | [...] Follow-up | | | as needed. Manny Saldaña [facility] | | | [facility] | | |6. Rhythm data: sinus [...] | | |Manny Saldaña MD | | |[facility] Congenital Heart Disease | | |Pediatric Cardiology | | | | | + + + ECG 12 lead (06/28/2016 12:52 PM PDT) + + + | Narrative | Performed At | + + + | Milton Driscoll | | | Joni Crow MD 06/28/2016 12:52 Normal sinus rhythm. Normal P | | | waves. Normal QRS axis, voltages and morphology. Normal ST | | | segments and T waves. Normal QT interval. Normal ECG | | | Recommendations: None. [facility] Quinones Jr, [facility] | | | [facility] | | |Normal ECG | | | | | |Recommendations: | | |None. | | | | | | | | | | | |Milton Quinones Jr, MD | | |[facility] for Congenital Heart Disease | | |Pediatric Cardiology | | | | | | | | + + + documented in this encounter Visit Diagnoses + + | Diagnosis | + + | Heart palpitations - Primary Palpitations | + + | Palpitation Palpitations | + + documented in this encounter
--- OUTSIDE RECORDS SUMMARY | ~2020-09-05 | XMS | Encounter Summary ---
Demographics + + + | Address | [address] | | | [place] [address] | + + + | Home Phone [...] + + + | Author | [facility] | | | and [place] | + + + | Organization | [facility] | | [...] | | | | | [place] [address] | | + + + + + | Concha Paulino | ECON | [address] | | | | | [place] [address] | | + + + + + Care Team Providers + +------+ + | Care Investment Banking Analyst Name | Role | Phone | + +------+ + | Kurt Campbell DO | PCP | | + +------+ + Reason for Visit + +--------+ + | Reason | Onset | Comments | | | Date | | + +--------+ + | Medication Related | 06/18/ | | | | 2018 | | + +--------+ + Encounter Details +--------+ + + + + | Date | Type | Department | Care Team | Description | +--------+ + + + + | 06/18/ | Telephone | [facility] FAMILY | Kurt Campbell, | Medication Related | | 2018 | | MEDICINE [place] | DO [address] | | | | | [address] | [place] | | | | | [place] | [address] | | | | | [address] | | | | | | [phone] | | | +--------+ + + + [...] Telephone Encounter - Alisha Mo RN - 06/18/2019 2:07 PM PDTHard script was broug ht to this nurse. Script has been destroyed and medication called into [place] [facility]. Jacqueline timmons was notified. She is going to let her mom know that it was filled via phone call. Elect ronically signed by Alisha Mo RN at 06/18/2019 2:08 PM PDTTelephone Encounter - Angelina Shaffer - 06/18/2019 1:51 PM PDTPatients mother called and states that patient told her [facility] will not fill her anxiety medications, they need to be printed off and brought in person. Please advise when ready to be picked up. documented in this encounter Plan of Treatment [...] | | | | | [place] [address] | | | | | | [phone] | | | | | | | | +--------+ + + + + | 09/22/ | Office | Physical Medicine | Gonzalo Merchant, | | | 2019 | Visit | and Rehabilitation | MD [address] | | | | | | [place] | | | | | | [id number] | | | | | | | | +--------+ + + + + | 09/29/ | Virtual | Pain Medicine | Peggy Arreola | | | 2019 | Office | | [address] | | | | Visit | | [place] | | | | | | [place], | | | | | | [place] [address] | | | | | | [phone] | | | | | | | | +--------+ + + + + | 01/24/ | Office | Family Medicine | Kurt Campbell, | | | 2020 | Visit | | DO [address] | | | | | | [place] | | | | | | [id number] | | | | | | | | +--------+ + + + + documented as of this encounter Visit Diagnoses Not on filedocumented in this encounter"
--- OUTSIDE RECORDS SUMMARY | ~2020-09-05 | XMS | Encounter Summary ---
Demographics + + + | Address | [address] | | | [place] [address] | + + + | Home Phone [...] | | | | | [place] [address] | | + + + + + | Concha Paulino | ECON | [address] | | | | | [place] [address] | | + + + + + Care Team Providers + +------+ + | Care Environmental Tech Name | Role | Phone | + +------+ + | Leonid Osorio MD | PCP | | + +------+ + Reason for Visit + +--------+ + | Reason | Onset | Comments | | | Date | | + +--------+ + | Establish Care | 02/10/ | | | | 2018 | | + +--------+ + Encounter Details +--------+ + + + + | Date | Type | Department | Care Team | Description | +--------+ + + + + | 02/10/ | Telephone | [facility] | Kurt Campbell, | Establish Care | | 2018 | | MEDICINE [place] | DO [address] | | | | | [address] | [place] | | | | | [place] | [address] | | | | | [address] | | | | | | [phone] | | | +--------+ + + + [...] this encounter Miscellaneous Notes Telephone Encounter - Annalisa Lei - 02/18/2019 11:21 AM PDTPatient is scheduled f or [id number] signed by Annalisa Lei at 02/18/2019 11:21 AM PDTTelephone E Leisa Jordan - 02/18/2019 10:05 AM PDTLeft message for patient to return our c all. elephone Encounter - Kurt Campbell DO - 02/10/2019 11:39 AM PDTYes, ok to schedule new patient. FYI- I change d my template so you can schedule new patients without asking me first unless it is a transf er from within the clinic or they are on narcotics for chronic pain. elephone Encounter - Leisa Cotter - 01/23 11:11 AM PDTDecarlos called looking for a new physician after her peds doctor. She would like to see you. She is currently taking Zoloft. Can we schedule a new patient appointment with you? She can be reached at [phone]. 11 :14 AM PDTdocumented in this encounter Plan of [...] | | | | | [place] [address] | | | | | | [phone] | | | | | | | | +--------+ + + + + | 09/22/ | Office | Physical Medicine | Gonzalo Merchant, | | | 2019 | Visit | and Rehabilitation | MD [address] | | | | | | [place] | | | | | | [address] | | | | | | | | +--------+ + + + + | 09/29/ | Virtual | Pain Medicine | Pacheco Arreolaelle | | | 2019 | Office | | [address] | | | | Visit | | [place] | | | | | | [place] | | | | | | [place] [address] | | | | | | [phone] | | | | | | | | +--------+ + + + + | 01/24/ | Office | Family Medicine | Kurt Campbell, | | | 2020 | Visit | | DO [address] | | | | | | [place] | | | | | | [id number] | | | | | | | | +--------+ + + + + documented as of this encounter Visit Diagnoses Not on filedocumented in this encounter"
--- OUTSIDE RECORDS SUMMARY | ~2020-09-05 | XMS | Encounter Summary ---
Demographics + + + | Address | [address] | | | [place] [address] | + + + | Home Phone [...] | | | | | [place] [address] | | + + + + + | Concha Paulino | ECON | [address] | | | | | [place] [address] | | + + + + + Care Team Providers + +------+ + | Care Wildlife Technician Name | Role | Phone | + +------+ + | Chance Easley MD | PCP | | + +------+ + Reason for Visit +---------+ + | Reason | Comments | +---------+ + | Becky | Audie. 3 | +---------+ + Encounter Details +--------+---------+ + + + | Date | Type | Department | Care Team | Description | +--------+---------+ + + + | 11/12/ | Office | [facility] | Laurie Robledo | Otitis media | | 2011 | Visit | [facility] [address] | MD Genna [address] | (Primary Dx) | | | | [facility] | [facility] | | | | | [place], [place] | [place] [address] | | | | | [address] | [phone] | | | | | [phone] | | | +--------+---------+ + + + [...] | + + +---------+ + | Not Asked | | | | + + +---------+ [...] + + + | Blood Pressure | 110/50 | 11/12/2012 2:02 PM | | | | | PST | | + + + + + | Pulse | 74 | 11/12/2012 2:02 PM | | | | | PST | | + + + + + | Temperature | 37.1 C (98.8 F) | 11/12/2012 2:02 PM | | | | | PST | | + + + + + | Respiratory Rate | 16 | 11/12/2012 2:02 PM | | | | | PST | | + + + + + | Oxygen Saturation | 98% | 11/12/2012 2:02 PM | | | | | PST | | + + + + + | Inhaled Oxygen | - | - | | | Concentration | | | | + + + + + | Weight | 49.4 kg (109 lb) | 11/12/2012 2:02 PM | | | | | PST | | + + + + + | Height | 157.5 cm (5' 2") | 11/12/2012 2:02 PM | | | | | PST | | + + + + + | Body Mass Index | 19.94 | 11/12/2012 2:02 PM | | | | | PST | | + + + + + documented in this encounter Patient Instructions Patient Instructions Laurie Robledo MD - 11/12/2012 2:24 PM PSTMedications as directe d. Followup in 3-4 days if no better, sooner if symptoms worsen. documented in this encounter Progress Notes Laurie Robledo MD - 11/12/2012 2:30 PM PST Subjective: Patient ID: Renny Saravia is a 12 y.o. female. HPI Patient is a 12-year-old otherwise healthy female presents to urgent care today complaining of one day history of left ear pain. She has had some mild nasal congestion and runny nose . Has had no fevers or chills, no cough, and no nausea, vomiting, or diarrhea. Past medical history, medications, and allergies reviewed. Review of Systems As per [facility] Objective: Physical Exam Vital signs as noted, nursing notes reviewed. Gcxrexw-mepq-wxlxknlbn well-nourished female in no apparent distress pleasant and cooperati ve. HEENT-normocephalic and atraumatic. Sinuses nontender. Right TM and canal are clear. Lef t TM with increased erythema, decreased light reflex and bulging. Canals clear. Nose witho ut erythema, edema or drainage. Oropharynx is pink and moist without erythema or exudate. Neck-supple, nontender, no lymphadenopathy or thyromegaly. Cardiovascular-regular rate rhythm without murmur rub gallop. Lungs-clear to auscultation bilaterally Assessment: 1. Otitis media Plan: Patient Instructions Medications as directed. Followup in 3-4 days if no better, sooner if symptoms worsen. documented in this encounter Plan of Treatment +--------+ + + + + | Date | Type | Specialty | Care Team | Description | +--------+ + + + + | 09/07/ | Office | Cardiology | Tawana Mcdonald | | 2019 | Visit | | [address] | | | | | | [place] | | | | | | [place] [address] | | | | | | [phone] | | | | | | | | +--------+ + + + + | 09/22/ | Office | Physical Medicine | Gonzalo Merchant, | | 2019 | Visit | and Rehabilitation | MD [address] | | | | | | [place] | | | | | | [address] | | | | | | | | +--------+ + + + + | 09/29/ | Virtual | Pain Medicine | Peggy Arreola | | 2019 | Office | | [address] | | | | Visit | | [place] | | | | | | [place] | | | | | | [place] [address] | | | | | | [phone] | | | | | | | | +--------+ + + + + | 01/24/ | Office | Family Medicine | Kurt Campbell, | | | 2020 | Visit | | [address] | | | | | | [place] | | | | | | [address] | | | | | | | | +--------+ + + + + documented as of this encounter Visit Diagnoses + + | Diagnosis | + + | Otitis media - Primary Unspecified otitis media | + + documented in this encounter
--- OUTSIDE RECORDS SUMMARY | ~2020-09-05 | XMS | Encounter Summary ---
Demographics + + + | Address | [address] [facility] | | | [place] [address] | + + + | Home Phone | | + + + | Preferred Language | Unknown | + + + | Marital Status | Single | + + + | Christianity Affiliation | [phone] | + + + [...] | | | | | [place] [address] | | + + + + + | Concha Paulino | ECON | [address] | | | | | [place] [address] | | + + + + + Care Team Providers + +------+ + | Care Slab Lifting Engineer Name | Role | Phone | + +------+ + | Leonid Osorio MD | PCP | | + +------+ + Reason for Visit +--------+ + | Reason | Comments | +--------+ + | Burn | Rm5 left leg back of thigh, burnt with curling iron | +--------+ + Encounter Details +--------+---------+ + + + | Date | Type | Department | Care Team | Description | +--------+---------+ + + + | 04/30/ | Office | [facility] | Von Frank, | First degree burn of | | 2015 | Visit | CARE [address] | MD [address] | left leg, initial | | | | [place] | [place] | encounter (Primary | | | | [id number] | [address] | Dx) | | | | [phone] | | | +--------+---------+ + + + [...] + + + | Blood Pressure | 110/56 | 04/30/2015 2:36 PM | | | | | PDT | | + + + + + | Pulse | 108 | 04/30/2015 2:36 PM | | | | | PDT | | + + + + + | Temperature | 37.7 C (99.8 F) | 04/30/2015 2:36 PM | | | | | PDT | | + + + + + | Respiratory Rate | 17 | 04/30/2015 2:36 PM | | | | | PDT | | + + + + + | Oxygen Saturation | 98% | 04/30/2015 2:36 PM | | | | | PDT | | + + + + + | Inhaled Oxygen | - | - | | | Concentration | | | | + + + + + | Weight | 50.3 kg (111 lb) | 04/30/2015 2:36 PM | | | | | PDT | | + + + + + | Height | 159.4 cm (5' 2.75") | 04/30/2015 2:36 PM | | | | | PDT | | + + + + + | Body Mass Index | 19.82 | 04/30/2015 2:36 PM | | | | | PDT | | + + + + + documented in this encounter Patient Instructions Patient Instructions Von Frank MD - 04/30/2015 3:06 PM PDTJust use Neosporin or ba citracin ointment and a simple dressing. If the skin of the burn area doesn't peel within t he next 2 or 3 days then you don't need any dressing on it. documented in this encounter Progress Notes Von Frank MD - 04/30/2015 3:09 PM PDTFormatting of this note might be different fr om the original. Subjective: Patient ID: Renny Saravia is a 15 y.o. female. HPI Patient's medications, allergies, past medical, surgical, social and family histories were reviewed and updated as appropriate. This 15-year-old girl came in because of a burn on her left thigh that she got earlier toda y when she sat against a hot curling iron. She has no other complaint. I reviewed her past history and meds. Review of Systems Constitutional: Negative. HENT: Negative. Respiratory: Negative. Cardiovascular: Negative. Gastrointestinal: Negative. Objective: Physical Exam Constitutional: She is oriented to person, place, and time. She appears well-developed and well-nourished. No distress. HENT: Head: Normocephalic. Eyes: Pupils are equal, round, and reactive to light. Cardiovascular: Normal rate. Pulmonary/Chest: Effort normal. Musculoskeletal: Normal range of motion. Legs: Neurological: She is alert and oriented to person, place, and time. Vitals reviewed. Assessment: 1. First degree burn of left leg, initial encounter Plan: Please see the AVS for the plan unless outlined elsewhere. I discussed situation with the patient and family. She had called her physician and was to ld she would need to be checked in order to get Silvadene cream. But when I checked her all ergy list she is allergic to sulfa and so I told her she should not use the Silvadene. She is instructed to simply use Neosporin or bacitracin and a simple Band-Aid dressing for the n ext 2 or 3 days. I gave her 3 large Band-Aids. If it is not peeling during that time and s he doesn't even need to cover it. I also told her how to use ice and cold packs to help red uce the standing. She had no questions. RC as needed. documented in this e ncounter [...] | | | | | | [place] [address] | | | | | | [phone] | | | | | | | | +--------+ + + + + | 09/22/ | Office | Physical Medicine | Gonzalo Merchant, | | | 2019 | Visit | and Rehabilitation | [address] | | | | | | [place] | | | | | | [address] | | | | | | | | +--------+ + + + + | 09/29/ | Virtual | Pain Medicine | Peggy Arreola | | 2019 | Office | | [address] | | | | Visit | | [place] | | | | | | [place], | | | | | | [place] [address] | | | | | | [phone] | | | | | | | | +--------+ + + + + | 01/24/ | Office | Family Medicine | Kurt Campbell, | | | 2020 | Visit | | [address] | | | | | | [place] | | | | | | [address] | | | | | | | | +--------+ + + + + documented as of this encounter Visit Diagnoses + + | Diagnosis | + + | First degree burn of left leg, initial encounter - Primary | + + documented in this encounter
--- OUTSIDE RECORDS SUMMARY | ~2020-09-05 | XMS | Encounter Summary ---
Demographics + + + | Address | [address] [facility] [facility] | | | [place] [address] | + + + | Home Phone [...] Author + + + | Author | [facility] | | | and [place] | + + + | Organization | [facility] | | [...] | | | | | [place] [address] | | + + + + + | Concha Paulino | ECON | [address] | | | | | [place] [address] | | + + + + + Care Team Providers + +------+ + | Care Residential Remodeling Subcontractor Name | Role | Phone | + +------+ + | Leonid Osorio MD | PCP | | + +------+ + Reason for Visit + + + | Reason | Comments | + + + | Pharyngitis | for the last couple of days she was sneezing and her joint hurt, | | | today has gotten progressively worse, RM 2 | + + + | Cough | | + + + | Chills | | + + + Encounter Details +--------+---------+ + + + | Date | Type | Department | Care Team | Description | +--------+---------+ + + + | 09/01/ | Office | [facility] | Tyson Rivera | Urinary frequency | | 2018 | Visit | CARE [address] | SINDI Long[address] | (Primary Dx); Sore | | | | [place], [place] | [address] [place] | throat | | | | [address] | [place] [address] | | | | | [phone] | [phone] | | | | | | | [...] + + + | Blood Pressure | 117/71 | 09/01/2018 4:58 PM | | | | | PDT | | + + + + + | Pulse | 110 | 09/01/2018 5:45 PM | | | | | PDT | | + + + + + | Temperature | 38 C (100.4 F) | 09/01/2018 4:58 PM | | | | | PDT | | + + + + + | Respiratory Rate | 18 | 09/01/2018 4:58 PM | | | | | PDT | | + + + + + | Oxygen Saturation | 98% | 09/01/2018 4:58 PM | | | | | PDT | | + + + + + | Inhaled Oxygen | - | - | | | Concentration | | | | + + + + + | Weight | 50 kg (110 lb 3.7 | 09/01/2018 4:58 PM | | | | oz) | PDT | | + + + + + | Height | 157.5 cm (5' 2") | 09/01/2018 4:58 PM | | | | | PDT | | + + + + + | Body Mass Index | 20.16 | 09/01/2018 4:58 PM | | | | | PDT [...] of this encounter Patient Instructions Patient Instructions Miguel Tyson Von, SINDI - 09/01/2018 5:00 PM PDT I will call with the results of the urine culture Lots of fluids Tylenol for fevers and pain Return if your symptoms change for the worse. Viral Syndrome (Adult) A viral illness may cause a number of symptoms such as fever. Other symptoms depend on the part of the body that the virus affects. If it settles in your nose, throat, and lungs, it m ay cause cough, sore throat, congestion, runny nose, headache, earache and other ear symptom s, or shortness of breath. If it settles in your stomach and intestinal tract, it may cause nausea, vomiting, cramping, and diarrhea. Sometimes it causes generalized symptoms like "ach ing all over," feeling tired, loss of energy, or loss of appetite. A viral illness usually lasts anywhere from several days to several weeks, but sometimes it lasts longer. In some cases, a more serious infection can look like a viral syndrome in the first few days of the illness. You may need another exam and additional tests to know the d ifference. Watch for the warning signs listed below for when to seek medical advice. Home care Follow these guidelines for taking care of yourself at home: If symptoms are severe, rest at home for the first 2 to 3 days. Stay away from cigarette smoke - both your smoke and the smoke from others. You may use oqds-aif-nhorlgcjogjjzahbfxbj or ibuprofen for fever, muscle aching, and h eadache, unless another medicine was prescribed for this. If you have chronic liver or kidne y disease or ever had a stomach ulcer or gastrointestinal bleeding, talk with your healthcar e provider before using these medicines. No one who is younger than 18 and ill with a fever should take aspirin. It may cause severe disease or . Your appetite may be poor, so a light diet is fine. Avoid dehydration by drinking 8 to 1 2, 8-ounce glasses of fluids each day. This may include water; orange juice; lemonade; apple , grape, and cranberry juice; clear fruit drinks; electrolyte replacement and sports drinks; and decaffeinated teas and coffee. If you have been diagnosed with a kidney disease, ask yo ur healthcare provider how much and what types of fluids you should drink to prevent dehydra tion. If you have kidney disease, drinking too much fluid can cause it build up in the your body and be dangerous to your health. Ihlv-lcp-gmtpngh remedies won't shorten the length of the illness but may be helpful for symptoms such as cough, sore throat, nasal and sinus congestion, or diarrhea. Don't use dec ongestants if you have high blood pressure. Follow-up care Follow up with your healthcare provider if you do not improve over the next week. Call 911 Call 911 if any of the following occur: Convulsion Feeling weak, dizzy, or like you are going to faint Chest pain, or more than mild shortness of breath When to seek medical advice Call your healthcare provider right away if any of these occur: Cough with lots of colored sputum (mucus) or blood in your sputum Chest pain, shortness of breath, wheezing, or trouble breathing Severe headache; face, neck, or ear pain Severe, constant pain in the lower right side of your belly (abdominal) Continued vomiting (can t keep liquids down) Frequent diarrhea (more than 5 times a day); blood (red or black color) or mucus in diar aviva Feeling weak, dizzy, or like you are going to faint Extreme thirst Fever of 100.4F (38C) or higher, or as directed by your healthcare provider Date Last Reviewed: 02/23/[id number] [employer]. [address] [place] [address], [place] [address]. All righ ts reserved. This information is not intended as a substitute for professional medical care. Always follow your healthcare professional's instructions. documented in this encounter Progress Notes Tyson Rivera ARNP - 09/01/2018 5:00 PM PDTFormatting of this note might be di fferent from the original. Subjective: Renny is a 18 y.o. female who comes in complaining of Pharyngitis (for the last couple of d ays she was sneezing and her joint hurt, today has gotten progressively worse, RM 2); Cough; and Chills . Pharyngitis This is a new problem. The current episode started today. The problem has been unchanged. N either side of throat is experiencing more pain than the other. The maximum temperature gila rded prior to her arrival was 100.4 - 100.9 F. The fever has been present for less than 1 da y. The pain is mild. Associated symptoms include congestion and swollen glands. Pertinent ne gatives include no coughing, diarrhea, ear discharge, ear pain, headaches, shortness of mikal th, trouble swallowing or vomiting. She has tried acetaminophen for the symptoms. The treat ent provided no relief. Patient also reporting urinary frequency x 3-4 days. Denies any pain when urinating. When patient is asked about elevated heart rate, she stated she is very nervous/anxious abo ut coming to the doctor's. Patient's medications, allergies, past medical, surgical, social and family histories were reviewed and updated as appropriate. Review of Systems Constitutional: Positive for fever. Negative for chills, diaphoresis and malaise/fatigue. HENT: Positive for congestion and sore throat. Negative for ear discharge, ear pain and tro uble swallowing. Eyes: Negative for discharge and redness. Respiratory: Negative for cough and shortness of breath. Gastrointestinal: Positive for nausea. Negative for diarrhea and vomiting. Genitourinary: Positive for frequency. Musculoskeletal: Negative for joint pain and myalgias. Neurological: Negative for dizziness, speech change, focal weakness and headaches. All other systems reviewed and are negative. Objective: BP 117/71 | Pulse 110 | Temp (!) 38 C (100.4 F) (Temporal) | Resp 18 | Ht 1.575 m ( 5' 2") | Wt 50 kg (110 lb 3.7 oz) | LMP 08/04/2018 (Exact Date) | SpO2 98% | Breastfeedi ng? No | BMI 20.16 kg/m Physical Exam Constitutional: She is oriented to person, place, and time. She appears well-developed and well-nourished. No distress. HENT: Head: Head is without raccoon's eyes and without Choudhury's sign. Right Ear: Tympanic membrane, external ear and ear canal normal. No mastoid tenderness. No middle ear effusion. Left Ear: Tympanic membrane, external ear and ear canal normal. No mastoid tenderness. No middle ear effusion. Mouth/Throat: Uvula is midline, oropharynx is clear and moist and mucous membranes are norm al. No posterior oropharyngeal erythema. Tonsils are 1+ on the right. Tonsils are 1+ on the left. No tonsillar exudate. Eyes: Conjunctivae are normal. Right eye exhibits no discharge. Left eye exhibits no discha rge. Neck: Normal range of motion. Cardiovascular: Tachycardia present. Pulmonary/Chest: Effort normal and breath sounds normal. No respiratory distress. She has n o wheezes. She has no rales. She exhibits no tenderness. Musculoskeletal: Normal range of motion. Lymphadenopathy: She has cervical adenopathy. Neurological: She is alert and oriented to person, place, and time. Skin: Skin is warm and dry. Capillary refill takes less than 2 seconds. She is not diaphore tic. Nursing note and vitals reviewed. Recent Results (from the past 24 hour(s)) Strep A DNA probe, NAAT Result Value Ref Range Group A Strep, DNA Negative Negative POCT Urinalysis Dipstick Automated Result Value Ref Range Color, UA, POC Yellow Yellow, Light Yellow Clarity, UA, POC Clear Glucose, UA, POC Negative Negative Bilirubin, UA, POC Negative Negative Ketones, UA, POC Negative Negative, 100 mg/dL Specific [place], UA, POC 1.010 1.030 Blood, UA, POC Negative Negative pH, UA, POC 6.0 5.0, 6.0, 7.0, 8.0, 5.5, 6.5, 7.5 Protein, UA, POC Negative Negative Urobilinogen, UA, POC 0.2 0.2, Negative, Normal, < 0.2 mg/dL, 1 mg/dL, < 0.2 E.U./dl, 1.0 E.U./dL, 0.2 mg/dL Nitrite, UA, POC Negative Negative Leukocyte Esterase, UA, POC Trace (A) Negative RED SUB UA ICTOTEST Negative REMARK POCT Test, Urine, QUAL Result Value Ref Range Test, Urine, POC Negative Negative Internal QC Acceptable Acceptable Specific [place], POC 1.010, 1.015, 1.020, 1.025 Lot Number [id number] Expiration Date 03/28/2019 Assessment and Plans: 1. Urinary frequency POCT Urinalysis Dipstick Automated POCT Test, Urine, QUAL Culture, Urine 2. Sore throat Strep A DNA probe, NAAT CANCELED: POCT Streptococcus A NAAT Due to many drug allergies, many of which will treat UTI, shared decision making with the p atient to culture the urine and determine the correct abx at that time (if any). For the viral type symptoms, advise increase fluids, tylenol for fevers and pain, time for symptoms to resolve. Discussed with the patient the risk/benefits regarding the medication use. Follow up with PCP as needed. Printed material regarding diagnosis provided to patient. Return if symptoms worsen or fail to improve. Electronically signed by SINDI Ayala at DATE/TIME: 09/01/2018 17:48 This note was dictated using [employer] voice recognition software. Occasional wrong- word or [...] | | | | | | [place] [address] | | | | | | [phone] | | | | | | | | +--------+ + + + + | 09/22/ | Office | Physical Medicine | Gonzalo Merchant, | | | 2019 | Visit | and Rehabilitation | [address] | | | | | | [place], [place] | | | | | | [address] | | | | | | | | +--------+ + + + + | 09/29/ | Virtual | Pain Medicine | Peggy Arreola | | | 2019 | Office | | [address] | | | | Visit | | [place] | | | | | | [place], | | | | | | [place] [address] | | | | | | [phone] | | | | | | | | +--------+ + + + + | 01/24/ | Office | Family Medicine | Kurt Campbell, | | | 2020 | Visit | | DO [address] | | | | | | [place] | | | | | | [address] | | | | | | | | +--------+ + + + + documented as of this encounter Procedures + +--------+ + + + | Procedure Name | Priori | Date/Time | Associated Diagnosis | Comments | | | ty | | | | + +--------+ + + + | CULTURE, URINE | STAT | 09/01/2018 | Urinary frequency | Results for this | | | | 5:46 PM | | procedure are in the | | | | PDT | | results section. | + +--------+ + + + | POCT TEST, | Routin | 09/01/2018 | Urinary frequency | Results for this | | URINE, QUAL | e | 5:37 PM | | procedure are in the | | | | PDT | | results section. | + +--------+ + + + | POCT URINALYSIS, | Routin | 09/01/2018 | Urinary frequency | Results for this | | AUTO WITH CONF | e | 5:17 PM | | procedure are in the | | | | PDT | | results section. | + +--------+ + + + | STREP A DNA PROBE, | Routin | 09/01/2018 | Sore throat | Results for this | | NAAT | e | 5:15 PM | | procedure are in the | | | | PDT | | results section. | + +--------+ + + + documented in this encounter Results Culture, Urine (09/01/2018 5:46 PM PDT) + + + + + [...] [address] | [place] | [phone] | | [facility] | | [address] | | | - LABORATORY | | | | + + + + + POCT Test, Urine, QUAL (09/01/2018 5:37 PM PDT) + + + + + [...] | 1.010, 1.015, | | | | [place], | | 1.020, 1.025 | | | | POC | | | | | + + + + + + | Lot Number | [id number] | | | | + + + + + + | Expiration | 03/28/2019 | | | | | Date | | | | | + + + + + + + + | Specimen | + + | Urine | + + POCT Urinalysis Dipstick Automated (09/01/2018 5:17 PM PDT) + + + + + + | Component | Value | Ref Range | Performed | Pathologist | | | | | At | Signature | + + + + + + | Color, UA, | Yellow | Yellow, Light | | | | POC | | Yellow | | | + + + + + + | Clarity, | Clear | | | | | UA, POC | | | | | + + + + + + | Glucose, | Negative | Negative | | | | UA, POC | | | | | + + + + + + | Bilirubin, | Negative | Negative | | | | UA, POC | | | | | + + + + + + | Ketones, | Negative | Negative, 100 | | | | UA, POC | | mg/dL | | | + + + + + + | Specific | 1.010 | 1.030 | | | | [place], | | | | | | UA, POC | | | | | + + + + + + | Blood, UA, | Negative | Negative | | | | POC | | | | | + + + + + + | pH, UA, POC | 6.0 | 5.0, 6.0, 7.0, | | | | | | 8.0, 5.5, 6.5, | | | | | | 7.5 | | | + + + + + + | Protein, | Negative | Negative | | | | UA, POC | | | | | + + + + + + | Urobilinoge | 0.2 | 0.2, Negative, | | | | n, UA, POC | | Normal, < 0.2 | | | | | | mg/dL, 1 mg/dL, | | | | | | < 0.2 E.U./dl, | | | | | | 1.0 E.U./dL, | | | | | | 0.2 mg/dL | | | + + + + + + | Nitrite, | Negative | Negative | | | | UA, POC | | | | | + + + + + + | Leukocyte | Trace (A) | Negative | | | | Esterase, | | | | | | UA, POC | | | | | + + + + + + | Reducing | | | | | | Substances, | | | | | | Urine | | | | | + + + + + + | Bilirubin | | Negative | | | | Confirmatio | | | | | | n by | | | | | | Ictotest, | | | | | | Urine | | | | | + + + + + + | Remark | | | | | + + + + + + + + | Specimen | + + | Urine | + + Strep A DNA probe, NAAT (09/01/2018 5:15 PM PDT) + + + + + + | Component | Value | Ref Range | Performed | Pathologist | | | | | At | Signature | + + + + + + | Group A | Negative | Negative | [facility] | | | Strep, DNA | | | [facility] | | [facility] | | [facility] | | + + + + + + + + | Specimen | + + | Tissue - Specimen | | from throat | | (specimen) | + + + + + + + | Performing | Address | City/State/Zipcode | Phone Number | | Organization | | | | + + + + + | [facility] | [address] | [place], [place] | [phone] | | [facility] | | [address] | | | [facility] | | | | + + + + + documented in this encounter Visit Diagnoses + + | Diagnosis | + + | Urinary frequency - Primary | + + | Sore throat Acute pharyngitis | + + documented in this encounter
--- OUTSIDE RECORDS SUMMARY | ~2020-09-05 | XMS | Encounter Summary ---
Demographics + + + | Address | [address] | | | [place] [address] | + + + | Home Phone [...] | | | | | [place] [address] | | + + + + + | Concha Paulino | ECON | [address] | | | | | [place] [address] | | + + + + + Care Team Providers + +------+ + | Care Recreation Assistant Name | Role | Phone | + +------+ + | Leondi Osorio MD | PCP | | + +------+ + Reason for Visit +--------+ + | Reason | Comments | +--------+ + | Asthma | Exam 5/ having Asthma attack needs inhaler refill | +--------+ + Encounter Details +--------+---------+ + + + | Date | Type | Department | Care Team | Description | +--------+---------+ + + + | 07/02/ | Office | [facility] | Serjio Clark | Mild persistent | | 2018 | Visit | [address] | MD Leela [address] | asthma without | | | | [place] | [address] [place] | complication | | | | [id number] | [id number] | (Primary Dx); | | | | [phone] | | Seasonal allergic | | | | | | rhinitis, | | | | | | unspecified trigger | +--------+---------+ + + + Social History [...] + + + | Blood Pressure | 100/60 | 07/02/2018 5:30 PM | | | | | PDT | | + + + + + | Pulse | 99 | 07/02/2018 5:30 PM | | | | | PDT | | + + + + + | Temperature | 37.7 C (99.8 F) | 07/02/2018 5:30 PM | | | | | PDT | | + + + + + | Respiratory Rate | 18 | 07/02/2018 5:30 PM | | | | | PDT | | + + + + + | Oxygen Saturation | 99% | 07/02/2018 5:30 PM | | | | | PDT | | + + + + + | Inhaled Oxygen | - | - | | | Concentration | | | | + + + + + | Weight | 48.8 kg (107 lb 9.4 | 07/02/2018 5:30 PM | | | | oz) | PDT | | + + + + + | Height | 157.5 cm (5' 2") | 07/02/2018 5:30 PM | | | | | PDT | | + + + + + | Body Mass Index | 19.68 | 07/02/2018 5:30 PM | | | | | PDT [...] of this encounter Patient Instructions Patient Instructions Serjio Clark MD - 07/02/2018 5:30 PM PDTTake Claritin 10 mg daily to control allergy and asthma symptoms. Use albuterol nebulized solution every 4-6 hours as needed for severe wheezing. Use albuterol inhaler 1-2 puffs every 4-6 hours as needed for wheezing while away from home . Reestablish care with Dr. Osorio at [facility] pediatrics. Return here with any new or progressive associated symptoms in the interim. Understanding Asthma Asthma causes swelling and narrowing of the airways in your lungs. Medical experts are not exactly sure what causes asthma. It is believed to be caused by a mix of inherited and envir onmental factors. Healthy lungs Inside the lungs there are branching airways made of stretchy tissue. Each airway is wrappe d with bands of muscle. The airways become more narrow as they go deeper into the lungs. The smallest airways end in clusters of tiny balloon-like air sacs (alveoli). These clusters ar e surrounded by blood vessels. When you breathe in (inhale), air enters the lungs. It travel s down through the airways until it reaches the air sacs. When you breathe out (exhale), air travels up through the airways and out of the lungs. The airways produce mucus that traps p articles you breathe in. Normally, the mucus is then swept out of the lungs by tiny hairs (c elaine) that line the airways. The mucus is swallowed or coughed up. What the lungs do The air you inhale contains oxygen. Whenoxygen reaches the air sacs, it passes into the b lood vessels surrounding the sacs. Your blood then delivers oxygen to all of your cells. As you exhale, carbon dioxide is removed in a similar way from the blood in the air sacs, and f rom the body. When you have asthma People with asthma have very sensitive airways. This means the airways react to certain thi ngs called triggers (such as pollen, dust, or smoke)and become swollen and narrowed. Infla mmation makes the airways swollen and narrowed. This is a long-lasting (chronic) problem. Th e airways may not always be narrowed enough tonotice breathing problems. Symptoms of chronic inflammation: Coughing Chest tightness Shortness of breath Wheezing (a whistling noise, especially when breathing out) Low energy or feeling tired In some people, over time chronic mild inflammation can lead to lasting (permanent) scarrin g of airways and loss of lung function. Moderate flare-ups When sensitive airways are irritated by a trigger, the muscles around the airways tighten. The lining of the airways swells. Thick, sticky mucus increases and partly clogs the airways . All of this makes you work harder to keep breathing. Symptoms of moderate flare-ups: Coughing, especially at night Getting tired or out of breath easily Wheezing Chest tightness Faster breathing when at rest Severe flare-ups Severe flare-ups are life-threatening. In a severe flare-up, the muscle tightening, swellin g, and mucus production are even worse. It s very hard to breathe. Your body can't get kristopher ugh oxygen and can't remove carbon dioxide. Waste gas is trapped in the alveoli, and gas exc hange can t occur. The body is not getting enough oxygen. Without oxygen, body tissues, es pecially brain tissue, begin to get damaged. If this goes on for long, it can lead to severe brain damage or . Call 911 (or have someone call for you) if you have any of these symptoms and they are not relieved right away by taking your quick-relief medicine as prescribed: Severe trouble breathing Too short of breath to talk or walk Lips or fingers turning blue Feeling lightheaded or dizzy,as though you are about to pass out Peak flow less than 50% of your personal best, if you use peak flow monitoring Asthma is a long-term condition. So it s important to work with your healthcare provider to manage it. If you smoke, get help to quit. Know your triggers and figure out how to avoid them. It s also very important to take your medicines as directed. That means taking them even when you feel good. Date Last Reviewed: 10/25/201619995576-3174 [employer]. [address] [place] [address]. All righ ts reserved. This information is not intended as a substitute for professional medical care. Always follow your healthcare professional's instructions. documented in this encounter Progress Notes Serjio Clark MD - 07/02/2018 5:30 PM PDTFormatting of this note might be differen t from the original. 07/02/2018 Renny Saravia 2000 Assessment: 1. Mild persistent asthma without complication albuterol (PROAIR HFA) 90 mcg/puff inhaler albuterol 2.5 mg/3 mL nebulizer solution 2. Seasonal allergic rhinitis, unspecified trigger loratadine (CLARITIN) 10 mg tablet Mild, persistent asthma with increased symptoms recently associated with poorly controlled allergic rhinitis and running out of her albuterol inhaler. No evidence of asthma exacerbat ion on exam. She was given the following instructions, refills of albuterol and prescriptio n for loratadine. She plans to follow-up with Dr. Osorio. Plan: Take Claritin 10 mg daily to control allergy and asthma symptoms. Use albuterol nebulized solution every 4-6 hours as needed for severe wheezing. Use albuterol inhaler 1-2 puffs every 4-6 hours as needed for wheezing while away from home . Reestablish care with Dr. Osorio at [facility]. Return here with any new or progressive associated symptoms in the interim. The risks and benefits, including potential side effects of medication changes, have been d iscussed with the patient. We agreed on implementing the current plan. The note may have been dictated using [employer] voice recognition software. It may have not b een proofread in entirety. Minor errors in grammar may occur. History: Chief Complaint Patient presents with Asthma Exam 5/ having Asthma attack needs inhaler refill Renny Saravia is a 18 y.o. female here for refills and evaluation of chronic asthma . Previously cared for by Dr. Osorio for asthma and uses albuterol nebulizer on a daily basis with meter dose inhaler when away from home. She denies being on inhaled steroids but has had prednisone bursts in the past. Had acquired pneumonia back in February 2018 which resolved . Chest x-ray on March 22 showed clearing of infiltrate. She's been lost to follow-up due to no insurance. She ran out of her albuterol a week ago and has increased associated wheez ing. Has history of seasonal allergies with sneezing and runny nose for which she takes Ryan adryl as needed which she no longer has. She believes her allergies are controlled. Has a mild cough with occasional white sputum production, currently not wheezing, symptoms usually worse at night. Denies sore throat, earache, sinus pressure and postnasal drainage. She i s a nonsmoker but has frequent exposure to secondhand smoke in her current living situation. No other complaints. Today, she discovered that her insurance is in effect and she plans to follow-up with Dr. Osorio. Current medications, past medical, surgical, family and social histories were reviewed and updated where appropriate. Allergies Allergen Reactions Rey Flavor Hives Nystatin Swelling Omeprazole Shortness Of Breath Penicillins Hives and Nausea And Vomiting Sulfa Antibiotics Shortness Of Breath Venlafaxine Anaphylaxis Aspirin Other (See Comments) fever Fish Oil Whooping cough injection/ extreme reaction Nitrofuran Derivatives Nausea And Vomiting Penicillins Physical Exam: BP 100/60 | Pulse 99 | Temp 37.7 C (99.8 F) (Temporal) | Resp 18 | Ht 1.575 m (5' 2 ") | Wt 48.8 kg (107 lb 9.4 oz) | SpO2 99% | ? No | BMI 19.68 kg/m General: Well appearing, teenage female in no distress and appears stated age. Breathing c omfortably and speaking in full sentences. HEENT: Atraumatic. No facial sinus tenderness. No mastoid tenderness. Ears: Clear EACs with unremarkable TMs. Eyes: Clear conjunctiva without exudates. Nose: Mildly congested with clear exudates. Oral: Moist oral membranes, pharynx unremarkable. Neck: Supple without adenopathy or JVD Chest: Clear to auscultation without rales or wheezes. No coughing noted during exam. Cardiac: Quiet precordium, regular rhythm without murmur. No dependent edema. Abdomen: Flat with normally active bowel sounds, soft and nontender. No organomegaly. Skin: Terrell, warm and dry with normal turgor. Serjio Clark M.D. documented in th is encounter Plan of [...] | | | | | [place] [address] | | | | | | [phone] | | | | | | | | +--------+ + + + + | 09/22/ | Office | Physical Medicine | Gonzalo Merchant, | | | 2019 | Visit | and Rehabilitation | [address] | | | | | | [place] | | | | | | [address] | | | | | | | | +--------+ + + + + | 09/29/ | Virtual | Pain Medicine | Peggy Arreola | | 2019 | Office | | [address] | | | | Visit | | [address] | | | | | | [place], | | | | | | [place] [address] | | | | | | [phone] | | | | | | | | +--------+ + + + + | 01/24/ | Office | Family Medicine | Kurt Campbell, | | | 2020 | Visit | | [address] | | | | | | [place] | | | | | | [address] | | | | | | | | +--------+ + + + + documented as of this encounter Visit Diagnoses + + | Diagnosis | + + | Mild persistent asthma without complication - Primary Unspecified asthma | + + | Seasonal allergic rhinitis, unspecified trigger | + + documented in this encounter
--- OUTSIDE RECORDS SUMMARY | ~2020-09-05 | XMS | Encounter Summary ---
Demographics + + + | Address | [address] | | | [place] [address] | + + + | Home Phone [...] | | | | | [place] [address] | | + + + + + | Concha Paulino | ECON | [address] | | | | | [place] [address] | | + + + + + Care Team Providers + +------+ + | Care Spanish Linguist Name | Role | Phone | + +------+ + | Kurt Campbell DO | PCP | | + +------+ + Reason for Visit + +--------+ + | Reason | Onset | Comments | | | Date | | + +--------+ + | Medication Refill | 05/09/ | | | | 2018 | | + +--------+ + Encounter Details +--------+--------+ + + + | Date | Type | Department | Care Team | Description | +--------+--------+ + + + | 05/09/ | Refill | [facility] | Kurt Campbell, | Medication Refill | | 2018 | | [facility] [place] | DO [address] | | | | | [address] | [place] | | | | | [place] | [address] | | | | | [address] | | | | | | [phone] | | | +--------+--------+ + + + Social History + +-------+ [...] | | | | | | [place] [address] | | | | | | [phone] | | | | | | | | +--------+ + + + + | 09/22/ | Office | Physical Medicine | Gonzalo Merchant, | | | 2019 | Visit | and Rehabilitation | [address] | | | | | | [place], [place] | | | | | | [address] | | | | | | | | +--------+ + + + + | 09/29/ | Virtual | Pain Medicine | Peggy Arreola | | 2019 | Office | | [address] | | | | Visit | | [address] | | | | | | [place], | | | | | | [place] [address] | | | | | | [phone] | | | | | | | | +--------+ + + + + | 01/24/ | Office | Family Medicine | Kurt Campbell, | | | 2020 | Visit | | [address] | | | | | | [place] | | | | | | [address] | | | | | | | | +--------+ + + + + documented as of this encounter Visit Diagnoses + + | Diagnosis | + + | Mild intermittent asthma without complication Unspecified asthma | + + | Mild persistent asthma without complication Unspecified asthma | + + documented in this encounter"
--- OUTSIDE RECORDS SUMMARY | ~2020-09-05 | XMS | Encounter Summary ---
Demographics + + + | Address | [address] | | | [place] [address] | + + + | Home Phone | | + + + | Preferred Language | Unknown | + + + | Marital Status | Single | + + + | Confucianist Affiliation | [id number] | + + + [...] | | | | | [place] [address] | | + + + + + | Concha Zeeshanletty | ECON | [address] | | | | | [place] [address] | | + + + + + Care Team Providers + +------+ + | Care Head Start Coordinator Name | Role | Phone | + [...] + + | Closed | Specialty | Gastroenterol | Diagnoses | [place], | [facility] | | | Services | ogy | Family | Kurt High DO | Gastroenterol | | | Required | | history of | [address] | [address] | | | | | colon cancer | [address] | [address] | | | | | in father | [place] | [address] | | | | | Personal | [address] | [place] | | | | | history of | Phone: | [phone] | | | | | colonic | [phone] | Phone: | | | | | polyps | Fax: | [phone] | | | | | | [phone] | Fax: | | | | | | | [phone] | +--------+ + + + + + Reason for Visit + + + | Reason | Comments | + + + | Establish Care | | + + + Encounter Details +--------+---------+ + + + | Date | Type | Department | Care Team | Description | +--------+---------+ + + + | 03/02/ | Office | [facility] | Kurt Campbell, | Encounter to | | 2019 | Visit | [facility] [place] | DO [address] | establish care | | | | [address] | [place] | (Primary Dx); Family | | | | [place] | [address] | history of colon | | | | [address] | | cancer in father; | | | | [phone] | | Depression, | | | | | | unspecified | | | | | | depression type; | | | | | | Anxiety; Need for | | | | | | hepatitis C | | | | | | screening test; Mild | | | | | | intermittent asthma | | | | | | without | | | | | | complication; | | | | | | Personal history of | | | | | | colonic polyps; Mild | | | | | | persistent asthma | | | | | | without | | | | | | complication; | | | | | | Allergic reaction to | | | | | | drug, subsequent | | | | | | encounter; Cardiac | | | | | | arrhythmia, | | | | | | unspecified cardiac | | | | | | arrhythmia type; | | | | | | Pityriasis rosea; | | | | | | Scoliosis of | | | | | | thoracic spine, | | | | | | unspecified | | | | | | scoliosis type; | | | | | | Screen for STD | | | | | | (sexually | | | | | | transmitted disease) | +--------+---------+ + + + Social History [...] + + + | Blood Pressure | 98/70 | 03/02/2019 1:48 PM | | | | | PDT | | + + + + + | Pulse | 101 | 03/02/2019 1:48 PM | | | | | PDT | | + + + + + | Temperature | - | - | | + + + + + | Respiratory Rate | 16 | 03/02/2019 1:48 PM | | | | | PDT | | + + + + + | Oxygen Saturation | 98% | 03/02/2019 1:48 PM | | | | | PDT | | + + + + + | Inhaled Oxygen | - | - | | | Concentration | | | | + + + + + | Weight | 47 kg (103 lb 9.9 | 03/02/2019 1:48 PM | | | | oz) | PDT | | + + + + + | Height | 160.4 cm (5' 3.15") | 03/02/2019 1:48 PM | | | | | PDT | | + + + + + | Body Mass Index | 18.27 | 03/02/2019 1:48 PM | | | | | PDT [...] of this encounter Patient Instructions Patient Instructions Yessenia Sawyer, [place] - 03/02/2019 2:00 PM PDTFormatting of this note m ight be different from the original. X-Ray: These can be performed at [facility] [place] [facility] OR [facility] Hours: Saturday through Saturday 8 am to 5 pm Lab Hours: Saturday-Saturday 7 am to 5:30 pm [facility] [address] [place] [facility] [address] [facility] Saturday ONLY @ [facility] 8 am to 4 pm Saturday: All labs closed Erythema Multiforme Erythema multiforme is a skin rash. It s cause by a hypersensitivity reaction. Many thing s can cause the reaction. These include a virus, bacteria, fungus, medicine, vaccine, or kevan d. Illnesses such as pneumonia and herpes can alsocause it. At first, the skin may have round red bumps, fluid-filled blisters, or pimples. Most of the se turn into a round ekwok with a small dark center. A white ring may surround the entire a mindy of the skin. The sores may cause pain, burning, or itching. They occur most often on the forearms, legs, and back of hands and feet. They can spread to the abdomen, back, face, gen itals, and mouth in severe cases. They can t be passed from person to person. You may also have a fever and muscle aches. Treatment includes finding and removing the cause. If a medicine may be the cause, you will be told to stop taking it. The sores will likely go away in 2 to 3 weeks without treatment. It may take longer in severe cases. The sores may come back. Your doctor may prescribe medi cine to reduce pain and inflammation, or an antiviral medicine. If any sores become infected , your doctor may prescribe an antibiotic. This condition is not contagious. Home care Follow these tips: Apply mxak-lau-xepiraa hydrocortisone cream to the rash. Soak in a bath with colloidal oatmeal added to the water. This can help relieve itching and pain. If the rash was caused by a medicine, make sure to tell future healthcare providers that you are allergic to it. You can take acetaminophen for fever and to ease pain. Follow-up care Follow up with your healthcare provider, or as advised. When to seek medical advice Call your healthcare provider right away if any of these occur: Inability to eat or swallow because you have mouth pain Your eyes become involved with the rash Trouble breathing Weakness, dizziness, or fainting Swelling or tightness of the throat and trouble swallowing Fever of 100.4F (38.0C) or higher The rash comes back after it goes away Date Last Reviewed: 07/26/201619991760-3646 [employer]. [address] [place] [address], [place] [address]. All righ ts reserved. This information is not intended as a substitute for professional medical care. Always follow your healthcare professional's instructions. Understanding Pityriasis Rosea Pityriasis rosea is a type of skin rash. It starts with one large round or oval scaly patch called the herald patch, and then causes many more small patches. The rash most often appea rs on the chest, back, and belly. It can take 1 to 2 months to go away. But once it s gone , it doesn t come back. How to say it [id number]-OKF-ah-sis RO-zee-ah What causes pityriasis rosea? The cause is not yet known but experts think it may be from a virus. The rash happens most often in people ages 10 to 35, and in women. If you are , make sure to tell your healthcare provider about your rash. Symptoms of pityriasis rosea In some people, the rash shows up 1 to 2 weeks after symptoms such as headache, sore throat , nausea, stuffy nose, and fever. The rash often starts with one large scaly patch in the sh ape of a ekwok or oval. The patch may be pink or red if you have pale skin. It may be purpl e, brown, or carol[place] if you have darker skin. It can be 1 to 2 inches wide or larger. It usuall y appears on the chest or back. This is called a herald or mother patch. Smaller patches then show up in 1 to 2 weeks on the chest, back, belly, arms, and legs. It can also show up on the neck and face. The rash can form the shape of a [place] tree on yo ur back. The patches may itch, especially if your skin gets warmer during exercise or a hot shower. You may also feel tired and achy. Treatment for pityriasis rosea The rash should go away without treatment, but it can take 4 to 8 weeks or longer. Once the rash goes away, it doesn t come back. You can treat your itching with any of these: Corticosteroid cream or ointment. You can apply this medicine to the rash 2 to 3 times a day, for up to 3 weeks. Calamine lotion. This is a pink, watery lotion that can help stop itching. Antihistamine. This medicine can help reduce itching. You can put it on the skin as a cr eam or take it by mouth as a pill. Other anti-itch lotion or cream. Ask your healthcare provider about other anti-itch loti on or cream that can help relieve itching. He or she may prescribe a stronger medicine if dr silvia ahumada isn t helping you. If you have severe symptoms, your healthcare provider may treat you with any of the below: Prednisone. This is an oral steroid medicine. It can help relieve severe itching if need ed. Acyclovir. This is a type of anti-virus medicine. It may help the rash go away sooner in some people. Ultraviolet light treatment. Exposing the skin to ultraviolet light in the first week ca n help lessen symptoms. When to call your healthcare provider Call your healthcare provider right away if you have any of these: New symptoms Rash that lasts for more than 3 months Symptoms that don t get better in 1 to 2 months, or get worse Date Last Reviewed: 03/25/201619997357-2256 [employer]. [address] [place] [address], [place] [address]. All righ ts reserved. This information is not intended as a substitute for professional medical care. Always follow your healthcare professional's instructions. documented in this encounter Progress Notes Kurt Campbell DO - 03/02/2019 2:00 PM PDTFormatting of this note might be different fro m the original. Subjective: Renny Saravia is a 19 y.o. female patient of Kurt Campbell DO. Chief Complaint: Establish Care HPI Patient presents to Establish Care. Her prior PCP was Dr. Easley/Dr. Osorio. Family history of Colon Cancer: Patient had a Colonoscopy at age 16. Cousin with colon cancer age 26 and Father aged 42. Recommended she get annual screening after age 19. Prior screening performed by Dr. Love. Depression/Anxiety: Patient is here for evaluation of Depression and anxiety. Onset: several years She has the following depression symptoms: depressed mood, fatigue, feelings of worthlessne ss/guilt, insomnia and suicidal thoughts without plan She denies the following symptoms: suicidal thoughts with specific plan She complains of the following anxiety symptoms: feeling nervous, anxious, not able to stop worrying, worrying too much, having trouble relaxing, being restless/hard to sit still, eas ingrid annoyed or irritable and feeling afraid something bad might happen Symptoms : Has had some worsening since her Grandmother . Sleep Disturbance: Yes Are you currently in counseling: yes Going to Psychologist at [facility] in [place]. Dr. Aiken. Treatments Tried: Zoloft 25 mg daily Have they been effective: Yes She took Wellbutrin, Trazodone, Effexor, Klonopin. PHQ9 SCORE Office Visit from 03/02/2019 in [facility] PHQ-9 Total Score (Patient Health Questionnaire) 19 ANXIETY/STRESS SCORE Office Visit from 03/02/2019 in [facility] MARIE-7 Score (General Anxiety Disorder) 20 Screening: Had a tattoo at age 15. Person giving her tattoo had Hep C. Patient would like to be screen ed for this. Patient states that the tattoo was done on professionally in the back yard she d and in less than ideal conditions. Patient declines other STD screening. States that she recently had chlamydia and STD scree daswon done at [facility] Rash: She would like this checked. Mostly to trunk. Started with a larger patch and then proceed ed to involve her trunk. Minimal extremity involvement. Mild itching for a few minutes and then itching resolves. Redness and blotching. Would like this checked. Asthma: States breathing has been well controlled. Currently using Albuterol nebulizer and inhaler as needed. Using Flovent daily. Allergic Reaction to Drug Would like a refill of Epi Pen supply Abnormal Heart Rate: This is happening intermittently. Does not appear to be related to her anxiety. She has an upcoming appointment with Dr. Coronel. Patient states she has had tachyarrhythmias with rate s upwards of 220. She does not feel like they coincide with any of her panic attacks. She has been using Valsalva maneuvers or immersing her face with cold water to stop it. They thompson ve discussed supraventricular tachycardia as a cause. She has an upcoming appointment with Dr. Harry Contraception Management: She is not currently trying to get . Has experienced 2-3 miscarriages and has a son who 1.5 years old. She has tried 3 different controls and had suicidal thoughts while on these medicatio ns. She states she is currently not sexually active and does not want to pursue other forms of control. She is considered IUDs as options but is worried about risks. She had a fr iend who had a perforation of the uterus. Scoliosis: Has gotten imaging in the past and has been recommended to get x-rays annually, but her las t x-ray was in 2014. In the past she has been evaluated by Dr. merchant and specialist in [place]. PREVENTIVE CARE/PRIOR VISITS 1. Any recommendations from Health Maintenance: No Preventative Services TOPIC LAST DONE NEXT DUE Vaccine: Influenza 12/28/2009 07/26/2019 Well Child Check 2002 Vaccine: Dtap/Tdap/Td 07/25/2010 07/26/2010 Vaccine: Pneumococcal 19-64 (Ppsv23 Only) Medium Risk 2018 2. Any immunizations necessary: No There is no immunization history for the selected administration types on file for this [facility] ient. 3. Has patient been involved in medical events/hospitalizations since their last visit: No Allergies Allergen Reactions Rey Flavor Hives Effexor [...] flovent hfa, ibuprofen , misc natural products, and sertraline. Past Medical History She has a past medical history of Anemia, Anxiety, Arthralgia, Asthma, Depression, Environm ental allergies, Hypotension, Kidney cysts, Migraine, OCD (obsessive compulsive disorder), O ppositional defiant disorder, and Substance abuse (HCC). Past [...] and patern al grandfather; Cancer in her father and paternal grandmother; Cardiomyopathy in an other [facility] member; Colon cancer (age of onset: 42) in her father; Depression in her father, matern al grandmother, and mother; Diabetes in her paternal grandmother; Early in her sister; Emphysema in her mother; Heart defect in her maternal grandmother; Heart disease in her [place] grandmother; Heart surgery in her maternal grandmother; High blood pressure in her [place] grandmother and mother; High cholesterol in her maternal grandmother and mother; Kidne y disease in her mother; Mental illness in her father and mother; Miscarriages / stillbirths in her maternal grandmother; Other (see comment) in her father and maternal aunt; Other (se e comment) (age of onset: 47) in her maternal grandfather; Pulmonary embolism in her materna l grandmother. Social History: Social History Socioeconomic History Marital status: Single Spouse name: Not on file Number of children: Not on file Years of education: Not on file Highest education level: Not on file Social Needs Financial resource strain: Not on file Food insecurity - worry: Not on file Food insecurity - inability: Not on file Transportation needs - medical: Not on file Transportation needs - non-medical: Not on file Occupational History Not on file Tobacco Use Smoking status: Former Smoker Packs/day: 0.50 Years: 6.00 Pack years: 3.00 Last attempt to quit: 2017 Years since quittin.2 Smokeless tobacco: Current User Tobacco comment: vaping right now 3 mg nicotine daily Substance and Sexual Activity Alcohol use: Yes Alcohol/week: 3.0 oz Types: 5 Glasses of wine per week Drug use: No Sexual activity: Yes Partners: Male control/protection: Yes Other Topics Concern Not on file Social History Narrative Lives with bio mom and m-grandmother Review of Systems Constitutional: Positive for fatigue. Negative for activity change, appetite change, chills , diaphoresis, fever and unexpected weight change. HENT: Positive for hearing loss. Negative for congestion, ear discharge, ear pain, facial s welling, nosebleeds, postnasal drip, rhinorrhea, sinus pressure, sneezing, sore throat, tinn itus and trouble swallowing. Eyes: Negative for photophobia, pain, discharge, redness, itching and visual disturbance. Respiratory: Positive for shortness of breath. Negative for apnea, cough, choking, chest ti ghtness, wheezing and stridor. Cardiovascular: Positive for chest pain and palpitations. Negative for leg swelling. Gastrointestinal: Positive for constipation, diarrhea and nausea. Negative for abdominal di stention, abdominal pain, anal bleeding, blood in stool, rectal pain and vomiting. Endocrine: Positive for cold intolerance. Genitourinary: Negative for difficulty urinating, dysuria, flank pain, frequency, genital s ores, hematuria and urgency. Musculoskeletal: Positive for arthralgias. Negative for back pain, gait problem, joint swel ling, myalgias, neck pain and neck stiffness. Skin: Negative for color change, pallor, rash and wound. Neurological: Negative for dizziness, tremors, seizures, syncope, facial asymmetry, speech difficulty, weakness, light-headedness, numbness and headaches. Hematological: Negative for adenopathy. Does not bruise/bleed easily. Psychiatric/Behavioral: Positive for dysphoric mood and sleep disturbance. Negative for nilda tation, behavioral problems, confusion, decreased concentration, hallucinations, self-injury and suicidal ideas. The patient is nervous/anxious. The patient is not hyperactive. Memory loss Objective: Vitals: 03/02/19 1348 BP: 98/70 Pulse: 101 Resp: 16 SpO2: 98% Weight: 47 kg (103 lb 9.9 oz) Height: 1.604 m (5' 3.15") Physical Exam Constitutional: She is oriented to person, place, and time. She appears well-developed and well-nourished. No distress. HENT: Head: Normocephalic and atraumatic. Right Ear: External ear normal. Left Ear: External ear normal. Nose: Nose normal. Mouth/Throat: Oropharynx is clear and moist. No oropharyngeal exudate. Eyes: Pupils are equal, round, and reactive to light. Conjunctivae are normal. Right eye ex hibits no discharge. Left eye exhibits no discharge. No scleral icterus. Neck: Normal range of motion. Neck supple. No JVD present. No tracheal deviation present. N o thyromegaly present. Cardiovascular: Normal rate, regular rhythm and intact distal pulses. Exam reveals no cohen p and no friction rub. No murmur heard. Pulmonary/Chest: Effort normal and breath sounds normal. No respiratory distress. She has n o wheezes. She has no rales. She exhibits no tenderness. Abdominal: Soft. Bowel sounds are normal. She exhibits no distension and no mass. There is no tenderness. There is no rebound and no guarding. No CVA tenderness Musculoskeletal: Normal range of motion. She exhibits no edema or tenderness. Lymphadenopathy: She has no cervical adenopathy. Neurological: She is alert and oriented to person, place, and time. She exhibits normal mus lino tone. Coordination normal. Skin: Skin is warm and dry. No rash noted. She is not diaphoretic. Erythematous macular papular rash extending across abdomen, trunk, back with minimal involv ement on extremities. Psychiatric: She has a normal mood and affect. Her behavior is normal. Judgment and thought content normal. Patient complains of depression and anxiety but appears calm, smiles, appropriate interacti on today. Does not appear acutely depressed despite her poor scores and history. Nursing note and vitals reviewed. Ortho Exam Results for orders placed or performed during the hospital encounter of 02/16/19 HCG, Serum, Quant Result Value Ref Range hCG Quant, Serum 5 (H) 2 - 4 mIU/mL Assessment and Plans: 1. Encounter to establish care 2. Family history of colon cancer in father * [facility] [place] [facility] - [facility] Referral 3. Depression, unspecified depression type sertraline (ZOLOFT) 50 mg tablet 4. Anxiety sertraline (ZOLOFT) 50 mg tablet 5. Need for hepatitis C screening test Hepatitis C Ab 6. Mild intermittent asthma without complication FLOVENT HFA 44 MCG/ACT inhaler 7. Personal history of colonic polyps * [facility] [place] [facility] - AMB Referral 8. Mild persistent asthma without complication albuterol 2.5 mg/3 mL nebulizer solution albuterol (PROAIR HFA) 90 mcg/puff inhaler 9. Allergic reaction to drug, subsequent encounter EPINEPHrine auto-injector 0.3 mg/0.3 mL injection 10. Cardiac arrhythmia, unspecified cardiac arrhythmia type 11. Pityriasis rosea 12. Scoliosis of thoracic spine, unspecified scoliosis type XR Scoliosis Entire Spine 2-3 Vws 13. Screen for STD (sexually transmitted disease) HIV AG/AB, 4th Gen, Reflex 1. Encounter to establish care Diet reviewed Exercise reviewed Reviewed preventive care protocols Scheduled due services Updated immunizations. Preventive services Plan and appropriate handouts given 2. Family history of colon cancer in father Referral entered to Gastroenterology 3. Depression, unspecified depression type Encourage her to keep her upcoming appointment with [facility] in early March for medication re view. Since her mood is not well controlled and she has tolerated Zoloft 50 mg, will increase tod ay so this can be reviewed at her upcoming appointment. 4. Anxiety See information above 5. Need for hepatitis C screening test Hep C lab ordered 6. Mild intermittent asthma without complication Well controlled. Will have her continue taking Flovent daily and Albuterol as needed. 7. Personal History of Colonic Polyps Referral entered to Gastroenterology 8. Mild persistent asthma without complication Stable. 9. Allergic reaction to drug, subsequent encounter Refilled Epi Pen for her to use as needed 10. Abnormal heart rate Will have her keep her upcoming appointment with Dr. Coronel. 11. Pityriasis rosea This is a self limiting rash and will resolve on its own. This is not dangerous or contagio us and will resolve on its own. Will monitor over the next month and must consider tinea an other option if it does not resolve. Her typical herald patch seen on her left lower abdome n 12. Contraception Management Discussion with patient about her options for control Since prior control medications caused suicidal thoughts she would be a good candidat e for IUD. She will let us know if she would like to pursue this in the future. She states she is not planning on having sex and can use condoms for control. Discus sed if she would like a more reliable method in the future we can discuss other options. 13. Scoliosis X-ray ordered 14. STD Screening HIV screening lab ordered Follow up: 4 weeks Over 40 min spent in face to face time with this patient today. Over 50% of time counselin g and coordinating care Care instructions and warning signs were discussed. Medications per orders. Side effects discussed. Labs and investigations per orders I STEFF Hairston, am acting as a scribe on behalf of, and in the presence of Kurt akbar DO. Electronically signed by: Yessenia Sawyer CMA 03/02/2019 13:48 I have reviewed and edited this note: Kurt Campbell DO 03/02/19 I, Kurt Campbell DO , personally performed the services described in this documentation, as scribed in my presence by Yessenia Sawyer and it is both accurate and complete. This note is dictated using [employer] voice recognition software. This note was dictated [...] | | | | | | [address] [facility] | | | | | | [place] [address] | | | | | | [phone] | | | | | | | | +--------+ + + + + | 09/22/ | Office | Physical Medicine | Gonzalo Merchant, | | | 2019 | Visit | and Rehabilitation | [address] | | | | | | [place] | | | | | | [phone] | | | | | | | | +--------+ + + + + | 09/29/ | Virtual | Pain Medicine | Peggy Arreola | | 2019 | Office | | [address] | | | | Visit | | [address] | | | | | | [place], | | | | | | [place] [address] | | | | | | [phone] | | | | | | | | +--------+ + + + + | 01/24/ | Office | Family Medicine | Kurt Campbell, | | | 2020 | Visit | | DO [address] | | | | | | [place] | | | | | | [address] | | | | | | | | +--------+ + + + + + + +--------+ + + | Name | Type | Priori | Associated Diagnoses | Order Schedule | | | | ty | | | + + +--------+ + + | * [facility] [place] | Outpatient | Routin | Family history of | Ordered: 03/02/2019 | | Gastroenterology - | Referral | e | colon cancer in | | | AMB Referral | | | father Personal | | | | | | history of colonic | | | | | | polyps | | + + +--------+ + + documented as of this encounter Results XR Scoliosis Entire Spine 2-3 Vws (03/02/2019 3:53 PM PDT) + + | Specimen | + + | | + + + + + | Narrative | Performed At | + + + | EXAM:XR SCOLIOSIS ENTIRE SPINE 2-3 VWS CLINICAL HISTORY: | [facility] | | scoliosis COMPARISON: 06/22/2013. FINDINGS: Frontal and | | | lateral views of the spine. There is a levoconvex curvature | | | through the thoracolumbar junction. Using the inferior endplate of | | | L4 and superior borders of the pedicles at T10 the levoconvex | | | curvature measures 18 degrees. This is unchanged. Utilizing the | | | inferior endplate of T9 and superior endplate of T5 there is a 14 | | | degree dextroconvex curvature. This is slightly increased. | | | IMPRESSION - S-shaped scoliosis. Stable levoconvex curvature | | | through the thoracolumbar junction. Mildly progressive | | | dextroconvex curvature in the mid thoracic spine measuring 14 degrees | | | compared to 8 degrees previously. Dictated and Signed by: Von Stone | | | MD Gerri Electronically signed: 03/02/2019 6:55 PM | | + + + + + | Procedure Note | + + | Shaun, Rad Results In - 03/02/2019 6:59 PM PDT EXAM:XR SCOLIOSIS ENTIRE SPINE 2-3 VWS | | | | CLINICAL HISTORY: scoliosis | | | | COMPARISON: 06/22/2013. | | | | FINDINGS: | | | | Frontal and lateral views of the spine. | | | | There is a levoconvex curvature through the thoracolumbar junction. Using the | | inferior endplate of L4 and superior borders of the pedicles at T10 the | | levoconvex curvature measures 18 degrees. This is unchanged. Utilizing the | | inferior endplate of T9 and superior endplate of T5 there is a 14 degree | | dextroconvex curvature. This is slightly increased. | | | | IMPRESSION - | | | | S-shaped scoliosis. | | | | Stable levoconvex curvature through the thoracolumbar junction. | | | | Mildly progressive dextroconvex curvature in the mid thoracic spine measuring 14 | | degrees compared to 8 degrees previously. | | | | Dictated and Signed by: Von Talley MD | | Electronically signed: 03/02/2019 6:55 PM | + + + +---------+ + + | Performing | Address | City/State/Zipcode | Phone Number | | Organization | | | | + +---------+ + + | [facility] | | | | + +---------+ + + HIV AG/AB, 4th Gen, Reflex (03/02/2019 2:45 PM PDT) + + + + + + | Component | Value | Ref Range | Performed | Pathologist | | | | | At | Signature | + + + + + + | HIV 1/2 Ab | Non Reactive | Non Reactive | REFERENCE | | | and P24 Ag | | | LAB [facility] | | | | | | - [facility] | | + + + + + + + + | Specimen | + + | Blood | + + + + + | Narrative | Performed At | + + + | Performed at: [address] [address], | REFERENCE LAB | | [place], [place] [id number] Material Handling Equipment Stevedore: Eros Godinez MD, Phone: | [facility] | | [phone] | | + + + + + + + + | Performing | Address | City/State/Zipcode | Phone Number | | Organization | | | | + + + + + | REFERENCE LAB | [address] | [place], [place] | [phone] | | [facility] | Drive [facility] | [address] | | + + + + + Hepatitis C Ab (03/02/2019 2:45 PM PDT) + + + + + + | Component | Value | Ref Range | Performed | Pathologist | | | | | At | Signature | + + + + + + | Hepatitis C | <0.1Comment: | 0.0 - 0.9 s/co | REFERENCE | | | Ab | | ratio | LAB [facility] | | | | | | - [place] | | | | Negative: < 0.8 | | | | | | | | | | | | | | | | | | Indeterminate: 0.8 - 0.9 | | | | | | | | | | | | | | | | | | Positive: > 0.9 | | | | | | The CDC recommends that | | | | | | a positive HCV antibody | | | | | | result be followed up | | | | | | with a HCV Nucleic Acid | | | | | | Amplification test | | | | | | ([id number]). | | | | + + + + + + + + | Specimen | + + | Blood | + + + + + | Narrative | Performed At | + + + | Performed at: - [address] [address], | REFERENCE LAB | | [place], [place] [id number] Material Handling Equipment Stevedore: Eros Godinez MD, Phone: | [facility] | | [phone] | | + + + + + + + + | Performing | Address | City/State/Zipcode | Phone Number | | Organization | | | | + + + + + | REFERENCE LAB | [address] | [place], [place] | [phone] | | [facility] | [address] | [address] | | + + + + + documented in this encounter Visit Diagnoses + + | Diagnosis | + + | Encounter to establish care - Primary Reserved for inherently not codable concepts | | WITHOUT codable children | + + | Family history of colon cancer in father | + + | Depression, unspecified depression type | + + | Anxiety Anxiety state, unspecified | + + | Need for hepatitis C screening test Special screening examination for other specified | | viral diseases | + + | Mild intermittent asthma without complication Unspecified asthma | + + | Personal history of colonic polyps | + + | Mild persistent asthma without complication Unspecified asthma | + + | Allergic reaction to drug, subsequent encounter | + + | Cardiac arrhythmia, unspecified cardiac arrhythmia type | + + | Pityriasis rosea | + + | Scoliosis of thoracic spine, unspecified scoliosis type | + + | Screen for STD (sexually transmitted disease) Screening examination for venereal | | disease | + + documented in this encounter
--- OUTSIDE RECORDS SUMMARY | ~2020-09-05 | XMS | Encounter Summary ---
Demographics + + + | Address | [address] | | | [place] [address] | + + + | Home Phone [...] | | | | | [place] [address] | | + + + + + | Concha Paulino | ECON | [address] | | | | | [place] [address] | | + + + + + Care Team Providers + +------+ + | Care Trailer Sections Assembler Name | Role | Phone | + +------+ + | No, Physician | PCP | Unavailable | + +------+ + Reason for Visit +---------+--------+ + | Reason | Onset | Comments | | | Date | | +---------+--------+ + | Results | 12/23/ | | | | 2017 | | +---------+--------+ + Encounter Details +--------+ + + + + | Date | Type | Department | Care Team | Description | +--------+ + + + + | 12/23/ | Telephone | [facility] | Deborah Knutson, | Results | | 2018 | | CARE [address] | Need updated | | | | | [place] | address | | | | | [address] | | | | | | [phone] | | | +--------+ + + + [...] Encounter - Jenn Krishnamurthy Cert MA - 12/23/2017 9:04 AM PSTCalled pt and notifie d her of note and pt has gotten better but at first she did get a fever a couple of days ago but is much better now. Pt will follow up if needed she said. elephone Encounte r - Jenn Krishnamurthy Cert MA - 12/23/2017 9:03 AM PST----- Message from MD se shahram Pizano at 12/20/2017 14:26 PST ----- Call pt. Labs were wnl. F/u with PCP for further w/u. F/u here if she develops feverElec tronically signed by Gregg Couch MA at 12/23/2017 9:03 AM PSTdocumented in this enco unter Plan of Treatment +--------+ + + + + | Date | Type | Specialty | Care Team | Description | +--------+ + + + + | 09/07/ | Office | Cardiology | Tawana Mcdonald | | | 2020 | Visit | | [address] | | | | | | [address] | | | | | | [place] [address] | | | | | | [phone] | | | | | | | | +--------+ + + + + | 09/22/ | Office | Physical Medicine | Gonzalo Merchant, | | | 2019 | Visit | and Rehabilitation | [address] | | | | | | [place] | | | | | | [address] | | | | | | | | +--------+ + + + + | 09/29/ | Virtual | Pain Medicine | Peggy Arreola | | 2019 | Office | | [address] | | | | Visit | | [address] | | | | | | [place] | | | | | | [place] [address] | | | | | | [phone] | | | | | | | | +--------+ + + + + | 01/24/ | Office | Family Medicine | Kurt Campbell, | | | 2020 | Visit | | DO [address] | | | | | | [place] | | | | | | [id number] | | | | | | | | +--------+ + + + + documented as of this encounter Visit Diagnoses Not on filedocumented in this encounter"
--- OUTSIDE RECORDS SUMMARY | ~2020-09-05 | XMS | Encounter Summary ---
Demographics + + + | Address | [address] | | | [place] [address] | + + + | Home Phone | | + + + | Preferred Language | Unknown | + + + | Marital Status | Single | + + + | Faith Affiliation | 1059 | + + + | Race | Unknown | + + + | Ethnic Group | Not or | + + + Author + + + | Author | [facility] | | | and [place] | + + + | Organization | [facility] | | | [...] | | | | | [place] [address] | | + + + + + | Concha Paulino | ECON | [address] | | | | | [place] [address] | | + + + + + Care Team Providers + +------+ + | Care Wire Web Worker Name | Role | Phone | + +------+ + | No, Physician | PCP | Unavailable | + +------+ + Reason for Visit + + + | Reason | Comments | + + + | Non-stress Test | | + + + Encounter Details +--------+ + + + + | Date | Type | Department | Care Team | Description | +--------+ + + + + | 09/02/ | Hospital | [facility] | Tomeka Gomez | | | 2017 | Encounter | MED [facility] LAB[facility] AND | Fatimah Peralta DO | | | | | DELIVERY [address] | [address] [facility] [facility] | | | | | [place], | [place] | | | | | [place] [address] | [id number] | | | | | [phone] | | | +--------+ + + + [...] + + | Pulse | 99 | 09/02/2017 4:00 PM | | | | | PDT | | + + + + + | Temperature | 37 C (98.6 F) | 09/02/2017 3:28 PM | | | | | PDT | | + + + + + | Respiratory Rate | 17 | 09/02/2017 3:28 PM | | | | | PDT | | + + + + + | Oxygen Saturation | 97% | 09/02/2017 4:00 PM | | | | | PDT | | + + + + + | Inhaled Oxygen | - | - | | | Concentration | | | | + + + + + | Weight | 55.3 kg (122 lb) | 09/02/2017 3:28 PM | | | | | PDT | | + + + + + | Height | - | - | | + + + + + | Body Mass Index | 22.31 | 08/25/2017 5:25 PM | | | | | PDT | | + + + + + documented in this encounter Discharge Instructions Instructions Annalisa Singh RN - 09/02/2017Discharge Education for the Undelivered Patie nt You can use the following list as [...] + documented as of this encounter Progress Annalisa Berger RN - 09/02/2017 4:16 PM PDTDischarged home with significant other. Rory abebe understanding of when to return. Electronically signed by Annalisa Singh RN at 09/02 4:35 PM PDTLaib, Annalisa Hinds RN - 09/02/2017 3:29 PM PDTHere for scheduled NST and F FN. Placed on EFM. Denies leaking of fluid or bleeding. Reports normal activity.Electr onically signed by Annalisa Singh RN at 09/02/2017 3:31 PM PDTdocumented in this encounte r Miscellaneous Notes Plan of Care - Fany Bello MSW - 09/27/2017 11:51 AM PDTThis CM met with the RN, the patient, and the patient's SO, Jesu, to follow-up on items identified during d/c plan dawson (see note on 09/26 filed at 17:07). The patient and her SO stated that the home environ ment has improved both sanitarily and emotionally. The patient stated that her mother and g randmother cleaned the home and behaved appropriately to her, her SO, and the . The patient and her SO stated that they felt safe in the home and planned to stay there for the near-future. The [employer] is not an option at this time. The patient is not affiliated with a buddhism or community group who could, potentially, offe r financial assistance for her certificate and/or housing. This CM asked if her mother would help with the certificate and the patient stated th at her grandmother is going to help provide the familial requirement but she would still nee d financial assistance. The patient or her SO are going to provide this CM with the name of the organization they're going through and the dollar amount so this CM can apply for [employer] assistance through [place] to help the patient acquire her certificate. This will allow the patient to obtain state issued ID. This CM to follow-up when the patient or SO contact her. Electronically signed by: JENA Stuart 09/27/2017 11:57 B Triage Notes - Nery palacios, Tomeka Peralta DO - 09/02/2017 4:12 PM PDTNST reactive. Baseline 125, moder ate variability, no decel, accels present. [place] quiet. Repeat fFN negative. D/c home in stable condition. Precautions for home.Electronically sign ed by Tomeka Gomez DO at 09/02/2017 4:13 PM PDTdocumented in this encou nter Plan of Treatment +--------+ + + + + | Date | Type | Specialty | Care Team | Description | +--------+ + + + + | 09/07/ | Office | Cardiology | Tawana Mcdonald | | | 2019 | Visit | | [address] | | | | | | [address] | | | | | | [place] [address] | | | | | | [phone] | | | | | | | | +--------+ + + + + | 09/22/ | Office | Physical Medicine | Gonzalo Merchant, | | | 2019 | Visit | and Rehabilitation | [address] | | | | | | [place] | | | | | | [address] | | | | | | | | +--------+ + + + + | 09/29/ | Virtual | Pain Medicine | Peggy Arreola | | | 2019 | Office | | [address] | | | | Visit | | [address] [address] | | | | | | [place], | | | | | | [place] [address] | | | | | | [phone] | | | | | | | | +--------+ + + + + | 01/24/ | Office | Family Medicine | Kurt Campbell, | | | 2020 | Visit | | DO [address] | | | | | | [place] | | | | | | [id number] | | | | | | | | +--------+ + + + + documented as of this encounter Procedures + +--------+ + + + | Procedure Name | Priori | Date/Time | Associated Diagnosis | Comments | | | ty | | | | + +--------+ + + + | FIBRONECTIN | Routin | 09/02/2017 | | Results for this | | | e | 3:37 PM | | procedure are in the | | | | PDT | | results section. | + +--------+ + + + documented in this encounter Results Fibronectin (09/02/2017 3:37 PM PDT) + + + + + + | Component | Value | Ref Range | Performed | Pathologist | | | | | At | Signature | + + + + + + | | Negative | Negative | [facility] | [facility] | | [facility] | [facility] - | | | | | | LABORATORY | | + + + + + + + + | Specimen | + + | Genital | + + + + + + + | Performing | Address | City/State/Zipcode | Phone Number | | Organization | | | | + + + + + | [facility] | [address] | [place] | [phone] | | [facility] | | [address] | | | - LABORATORY | | | | + + + + + documented in this encounter Visit Diagnoses Not on filedocumented in this encounter"
--- OUTSIDE RECORDS SUMMARY | ~2020-09-05 | XMS | Encounter Summary ---
Demographics + + + | Address | [address] | | | [place] [address] | + + + | Home Phone [...] Author + + + | Author | [facility] | | | and [place] | + + + | Organization | [facility] | | | [...] | | | | | [place] [address] | | + + + + + | Concha Paulino | ECON | [address] | | | | | [place] [address] | | + + + + + Care Team Providers + +------+ + | Care Civil Division Commander Deputy Sheriff Name | Role | Phone | + +------+ + | Tomeka Gomez | PCP | | | Fabian DO | | | + +------+ + Encounter Details +--------+ + + + + | Date | Type | Department | Care Team | Description | +--------+ + + + + | 06/03/ | Hospital | [facility] | Tomeka Gomez | Encounter for | | 2016 | Encounter | [address] | Fatimah Peralta DO | supervision of | | | | [place] | [address] | normal , | | | | [address] | [place] | antepartum, | | | | [phone] | [address] | unspecified | | | | | [...] | | | | | [place] [address] | | | | | | [phone] | | | | | | | | +--------+ + + + + | 09/22/ | Office | Physical Medicine | Gonzalo Merchant, | | | 2019 | Visit | and Rehabilitation | MD [address] | | | | | | [place] | | | | | | [address] | | | | | | | | +--------+ + + + + | 09/29/ | Virtual | Pain Medicine | Peggy Arreola | | | 2019 | Office | | [address] | | | | Visit | | [place] | | | | | | [place], | | | | | | [place] [address] | | | | | | [phone] | | | | | | | | +--------+ + + + + | 01/24/ | Office | Family Medicine | Kurt Campbell, | | | 2020 | Visit | | DO [address] | | | | | | [place] | | | | | | [address] | | | | | | | | +--------+ + + + + documented as of this encounter Procedures + +--------+ + + + | Procedure Name | Priori | Date/Time | Associated Diagnosis | Comments | | | ty | | | | + +--------+ + + + | US OB 14 + WEEKS | Routin | 06/03/2017 | Encounter for | Results for this | | SINGLE OR FIRST | e | 9:05 AM | supervision of | procedure are in the | | GESTATION | | PDT | normal , | results section. | | | | | antepartum, | | | | | | unspecified | | | | | | | | + +--------+ + + + documented in this encounter Results US OB 14 + Week Singl or First Gestation (06/03/2017 9:05 AM PDT) + + | Specimen | + + | | + + + + + | Narrative | Performed At | + + + | COMPLETE OBSTETRIC ULTRASOUND 06/03/2017 9:05 AM (PERFORMED AT | [facility] | | [facility]) CLINICAL HISTORY: US OB 14 + Week Singl or | | | First Gestation, approximately 21 weeks 0 days based on LMP | | | COMPARISON: OBSTETRIC ULTRASOUND APRIL 22 FINDINGS: A single | | | intrauterine fetus is present, and is in presentation. The maternal | | | cervix is closed and measures 3.5 cm. The placenta is anterior, | | | without evidence of placenta previa or subchorionic hemorrhage. | | | Amniotic fluid volume is subjectively within normal limits. | | | biometric data: BPD of 4.4 cm equals 19 weeks 2 days. Head | | | circumference of 17.3 cm equals 19 weeks 6 days. Abdominal | | | circumference of 15.5 cm equals 20 weeks 5 days. Femur length of 3.3 | | | cm equals 20 weeks 2 days. Average sonographic age is 20 weeks 0 | | | days, which is 7 days less than the calculated gestational age based | | | on LMP. anatomic survey: Contents of the posterior fossa and | | | the lateral ventricles are unremarkable. A four-chamber heart | | | is present, with a regular rate of 139 BPM. Cardiac ventricular | | | outflow tracts are normal in orientation. A fluid filled stomach | | | and bladder are present. The spine, renal region and | | | three-vessel umbilical cord and its insertion are unremarkable. | | | Two upper and lower extremities are visualized. IMPRESSION | | | - 1. SINGLE, LIVING INTRAUTERINE FETUS IN BREECH PRESENTATION, | | | WITH AVERAGE SONOGRAPHIC AGE 20 WEEKS 0 DAYS, WHICH IS 7 DAYS LESS | | | THAN THE CALCULATED GESTATIONAL AGE BASED ON LMP. 2. NORMAL | | | ANATOMIC SURVEY. Dictated and Signed by: Oz Cedillo MD | | | Electronically signed: 06/03/2017 12:17 PM | | + + + + + | Procedure Note | + + | Shaun, Rad Results In - 06/03/2017 12:20 PM PDT COMPLETE OBSTETRIC ULTRASOUND | | 06/03/2017 9:05 AM (PERFORMED AT [facility])CLINICAL HISTORY: US OB 14 + Week | | Singl or First Gestation, approximately 21weeks 0 days based on LMPCOMPARISON: | | OBSTETRIC ULTRASOUND APRIL 22FINDINGS: A single intrauterine fetus is present, and is in | | presentation. Thematernal cervix is closed and measures 3.5 cm. The placenta is | | anterior,without evidence of placenta previa or subchorionic hemorrhage. Amniotic | | fluidvolume is subjectively within normal limits. biometric data:BPD of 4.4 cm | | equals 19 weeks 2 days.Head circumference of 17.3 cm equals 19 weeks 6 days.Abdominal | | circumference of 15.5 cm equals 20 weeks 5 days.Femur length of 3.3 cm equals 20 weeks 2 | | days.Average sonographic age is 20 weeks 0 days, which is 7 days less than | | thecalculated gestational age based on LMP. anatomic survey: Contents of the | | posterior fossa and the lateralventricles are unremarkable. A four-chamber heart is | | present, with a regularrate of 139 BPM. Cardiac ventricular outflow tracts are normal | | in orientation. A fluid filled stomach and bladder are present. The spine, | | renalregion and three-vessel umbilical cord and its insertion are unremarkable. Two | | upper and lower extremities are visualized. IMPRESSION -1. SINGLE, LIVING | | INTRAUTERINE FETUS IN BREECH PRESENTATION, WITH AVERAGESONOGRAPHIC AGE 20 WEEKS 0 DAYS, | | WHICH IS 7 DAYS LESS THAN THE CALCULATEDGESTATIONAL AGE BASED ON LMP. 2. NORMAL | | ANATOMIC SURVEY.Dictated and Signed by: Oz Cedillo MD Electronically signed: | | 06/03/2017 12:17 PM | |calculated gestational age based on LMP. | | | | anatomic survey: Contents of the posterior fossa and the lateral | |ventricles are unremarkable. A four-chamber heart is present, with a regular | |rate of 139 BPM. Cardiac ventricular outflow tracts are normal in orientation. | | A fluid filled stomach and bladder are present. The spine, renal | |region and three-vessel umbilical cord and its insertion are unremarkable. | |Two upper and lower extremities are visualized. | | | |IMPRESSION - | |1. SINGLE, LIVING INTRAUTERINE FETUS IN BREECH PRESENTATION, WITH AVERAGE | |SONOGRAPHIC AGE 20 WEEKS 0 DAYS, WHICH IS 7 DAYS LESS THAN THE CALCULATED | |GESTATIONAL AGE BASED ON LMP. | | | |2. NORMAL ANATOMIC SURVEY. | | | |Dictated and Signed by: Oz Cedillo MD | | Electronically signed: 06/03/2017 12:17 PM | + + + +---------+ + + | Performing | Address | City[facility]State[facility] | Phone Number | | Organization | | | | + +---------+ + + | [facility] | | | | + +---------+ + + documented in this encounter Visit Diagnoses + + | Diagnosis | + + | Encounter for supervision of normal , antepartum, unspecified | + + documented in this encounter"
--- OUTSIDE RECORDS SUMMARY | ~2020-09-05 | XMS | Encounter Summary ---
Demographics + + + | Address | [address] [facility] [address] | | | [place] [address] | + + + | Home Phone [...] + | Author | [facility] | | | and [place] | + + + | Organization | [facility] | | | and [...] | | | | | [place] [address] | | + + + + + | Concha Paulino | ECON | [address] | | | | | [place] [address] | | + + + + + Care Team Providers + +------+ + | Care Nursing Informatics Specialist Name | Role | Phone | + +------+ + | Chance Easley MD | PCP | | + +------+ + Encounter Details +--------+ + + + + | Date | Type | Department | Care Team | Description | +--------+ + + + + | 06/22/ | Hospital | [facility] | Gonzalo Merchant, | Adolescent | | 2012 | Encounter | MED CTR XRAY [address] | MD [address] | idiopathic scoliosis | | | | [place] | [place] | of thoracolumbar | | | | [place] [address] | [address] | region | | | | [phone] | | | +--------+ + + + [...] | | | | | [place] [address] | | | | | | [phone] | | | | | | | | +--------+ + + + + | 09/22/ | Office | Physical Medicine | Gonzalo Merchant, | | | 2019 | Visit | and Rehabilitation | MD Dane Johnson | | | | | | [place] | | | | | | [address] | | | | | | | | +--------+ + + + + | 09/29/ | Virtual | Pain Medicine | Peggy Arreola | | 2019 | Office | | [address] | | | | Visit | | [place] | | | | | | [place], | | | | | | [place] [address] | | | | | | [phone] | | | | | | | | +--------+ + + + + | 01/24/ | Office | Family Medicine | Kurt Campbell, | | | 2020 | Visit | | [address] | | | | | | [place] | | | | | | [address] | | | | | | | | +--------+ + + + + documented as of this encounter Procedures + +--------+ + + + | Procedure Name | Priori | Date/Time | Associated Diagnosis | Comments | | | ty | | | | + +--------+ + + + | XR THORACOLUMBAR | Routin | 06/22/2013 | Adolescent | Results for this | | STANDING FOR | e | 4:27 PM | idiopathic scoliosis | procedure are in the | | SCOLIOSIS | | PDT | of thoracolumbar | results section. | | | | | region | | + +--------+ + + + documented in this encounter Results XR Scoliosis Standing (06/22/2013 4:27 PM PDT) + + | Specimen | + + | | + + + + + | Narrative | Performed At | + + + | [facility] Diagnostic [facility] | [place] | | Department [address] [facility] | [facility] | | [ rep [address]] [ rep [facility] | | st zip] Signed | - IMAGING | | | | | Patient Name: RENNY OLIVER | | | Physician: CLOTILDE : 2000 Age: 13 Sex: F Unit | | | #: [id number] Exam Date: 06/22/13 Location: | | | [facility] Report #: [id number] Page: | | | %(RAD)RES..mtdd.print.filter("pg") of %(RAD) | | | RES..mtdd.print.filter("tpg") | | | | | | Accession Number: [id number] | | | [place] SCOLIOSIS STUDY, [...] Transcribed Date/Time: 06/22/2013 20:25 | | | Truck Shop Supervisor: <<Signature on File>> | | | | | | Oz Cedillo MD06/22/[id number] <Electronically signed by Oz Delong | | | Mamadou MARCUS> Oz Cedillo MD 06/22/13 162 | | | Truck Shop Supervisor: Federico Khreimlqarkin34/29/132024 | | | Gonzalo Merchant Jr, MD | | + + + + + + + + | Performing | Address | City/State/Zipcode | Phone Number | | Organization | | | | + + + + + | [facility] | [address] 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
--- OUTSIDE RECORDS SUMMARY | ~2020-09-05 | XMS | Encounter Summary ---
Demographics + + + | Address | [address] [facility] | | | [place] [address] | + + + | Home Phone [...] | | | | | [place] [address] | | + + + + + | Concha Paulino | ECON | [address] | | | | | [place] [address] | | + + + + + Care Team Providers + +------+ + | Care Ribbon Tier Name | Role | Phone | + +------+ + | Leonid Osorio MD | PCP | | + +------+ + Reason for Visit + + + | Reason | Comments | + + + | Follow-up | monitor results | + + + Encounter Details +--------+---------+ + + + | Date | Type | Department | Care Team | Description | +--------+---------+ + + + | 09/21/ | Office | [facility] | Brooklyn Hinson | Palpitation (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 | Visit | for Congenital Heart | MD Alfredo [address] | Dx) | | | | Disease [address] | [address] | | | [address] | [place] [address] | | | | | [place], [place] | [phone] | | | | | [address] | | | | | | [phone] | | | +--------+---------+ + + + [...] of this encounter Patient Instructions Patient Instructions Brooklyn Hinson MD - 09/21/2015 11:38 AM PDT Heart Palpitations Palpitations refers to the feeling that your heart is beating hard, fast or irregular. Some people describe it as "pounding" or "skipped beats". Palpitations may occur in persons with heart disease, but can also occur in healthy persons. Heart-Related Causes: Arrhythmia (a change from the heart's normal rhythm) Disease of the heart valves Mdd-Zouiu-Bbnukul Causes: Certain medicines (such as asthma inhalers and decongestants) Some herbal supplements, energy drinks and pills, and weight loss pills Illegal stimulant drugs (such as cocaine, crank, methamphetamine, PCP) Caffeine, alcohol and tobacco Medical conditions such as thyroid disease, anemia, anxiety and panic disorder Sometimes the cause cannot be found. Home Care: 1. Avoid excess caffeine, alcohol, tobacco and any stimulant drugs. 2. Tell your doctor about any prescription or aowu-rhq-gxubynk or herbal medicines you take . Follow Up with your doctor or as advised by our staff. Get Prompt Medical Attention if any of the following occur together with palpitations: Weakness, dizziness, light-headed or fainting Chest pain or shortness of breath Rapid heart rate (over 120 beats per minute, at rest) Palpitations that lasts over 20 minutes Weakness of an arm or leg or one side of the face Difficulty with speech or vision [id number] [place] [address]. All righ ts reserved. This information is not intended as a substitute for professional medical care. Always follow your healthcare professional's instructions. documented in this encounter Progress Notes Brooklyn Hinson MD - 09/21/2015 2:33 PM PDT [facility] Pt. Name/Age/: Renny Saravia / 15 y.o. / 2000 Date of Visit: 09/21/2015 Primary Care Physician: Leonid Osorio Reason for Visit: For follow-up cardiac evaluation for palpitation, review monitor results Assessment & Plan: Palpitation I offered reassurance. Continuous ambulatory telemetry demonstrated completely normal sinu s rhythm throughout the study. Cardiac rhythm during symptoms included sinus rhythm and sin us tachycardia. After further evaluation it appears to have been does frequently get lighth eaded when going from sitting to standing. Many of her palpitations are associated with pos ition changes. We performed an orthostatic evaluation and this was strongly positive demons trating a 30 point increase in heart rate. At this time I strongly counseled avoidance of c affeinated beverages and increasing her overall fluid and salt intake. I reviewed the diagn osis of vasovagal symptoms at length. I also gave the family a handout regarding fluid and dietary changes that could help to diminish symptoms. Because of the family history of waqar holman family members regarding ablation for tachycardia they are very anxious. By the end of the visit they seemed comfortable with the diagnosis. We agreed to reevaluate in 3 months. If symptoms persist and are significantly disruptive to lifestyle we may consider beta blo cker therapy but I cautioned that all medications have side effects and if we can control sy mptoms adequately with fluid and dietary changes she may be better off. Additional Plans: Return in about 3 months (around 12/22/2015). No orders of the defined types were placed in this encounter. Medications after this visit: New Prescriptions No [...] seconds to up to 45 minutes or so. Her most significant episode thompson ppened resulted in an EMS call and transport to emergency room. She was told that her heart rate was over 200 bpm but no recording of this rhythm was done on her way today emergency r oom. When they did put her on a monitor she had gone back to normal sinus rhythm. She has thompson d workup done about 2 years ago at [facility] where she had an echocardiogram done which was theresa l, and an attempt of event monitor was not successful because there was malfunction of the m onitor and she has not had any further follow up,. At the present time she is on Zoloft and Wellbutrin but no other medication, she denies any drugs or alcohol she does smoke occasiona l marijuana, and she does not use any energy drinks. She does drink coffee. There is a maliha y strong family history of arrhythmias and cardiac disease including congenital heart diseas e and acquired heart disease specially hyperlipidemia and coronary artery disease, she has h ad many members of her family undergo ablation. She also has had one of her sisters at the age of 9 and autopsy was done and no diagnosis was made at autopsy. At her last visit a month long ambulatory cloth coverer was ordered and performed. Past Medical History: Reviewed and updated Past [...] Outpatient Medications buPROPion (WELLBUTRIN) 75 mg tablet Take 75 mg by mouth Daily. diphenhydrAMINE [...] mouth nightly. sertraline (ZOLOFT) 25 mg tablet Take 50 mg by mouth Daily. XULANE 150-35 MCG/24HR patch Family History: Family History Problem Relation Age [...] or paralysis Endocrine: Denies thyroid problems. Psychiatric: Depression Vital signs: Vital signs: Blood pressure and heart rate: Supine 100/63 heart rate 65 Sitting blood pressure 100/64 heart rate 82 Standing 107/70 heart rate 93 Growth Percentiles: Wt Readings from Last 3 Encounters: 08/10/15 49.215 kg (108 lb 8 oz) (24 %*, Z = -0.69) 04/30/15 50.349 kg (111 lb) (32 %*, Z = -0.48) 04/07/15 50.803 kg (112 lb) (34 %*, Z = -0.41) * Growth percentiles are based on [facility] 2-20 Years data. Ht Readings from Last 3 Encounters: 08/10/15 1.6 m (5' 2.99") (33 %*, Z = -0.43) 04/30/15 1.594 m (5' 2.75") (31 %*, Z = -0.51) 04/07/15 1.575 m (5' 2") (21 %*, Z = -0.80) * Growth percentiles are based on [facility] 2-20 Years data. There is no height or weight on file to calculate BMI. No unique date with height and weight on file. No weight on file for this encounter. No height on file for this encounter. General Physical Examination: General: Well-appearing, no acute distress. Not dysmorphic. HEENT: Normocephalic, atraumatic. Normal conjunctivae without erythema or icterus. No nasa l discharge. [place] moist mucous membranes. Neck: Supple, with full [...] Review Data and Imaging: ECG: Electrocardiogram done at her last visit revealed normal sinus rhythm, with normal SC and QT intervals, no evidence of any chamber enlargement seen, no evidence of any conduction abnormalities seen ECHO: echocardiogram which was brought in from [facility] showed essentially normal echocardiogra m with no evidence of any significant structural functional cardiac abnormality. Ambulatory telemetry: Normal sinus rhythm and some sinus tachycardia documented during symp toms. Normal findings Thank you very much for allowing us to participate in Renny Saravia's care. Please do not hesitate to contact us at any time should you have any questions or concerns. Brooklyn Hinson M.D. [facility] 40 minutes were spent in direct consultation with [...] please do not hesitate to contact me di rectly. Electronically signed by: Brooklyn Hinson MD 09/21/2015 14:37 CC: Leonid Osorio [phone] documented in this enc ounter Miscellaneous Notes Assessment & Plan Note - Brooklyn Hinson MD - 09/21/2015 2:33 PM PDTAssociated Problem(s): PalpitationI offered reassurance. Continuous ambulatory telemetry demonstrated completely normal sinus rhythm throughout the study. Cardiac rhythm during symptoms included sinus rhy thm and sinus tachycardia. After further evaluation it appears to have been does frequently get lightheaded when going from sitting to standing. Many of her palpitations are associat ed with position changes. We performed an orthostatic evaluation and this was strongly posi tive demonstrating a 30 point increase in heart rate. At this time I strongly counseled alex idance of caffeinated beverages and increasing her overall fluid and salt intake. I reviewe d the diagnosis of vasovagal symptoms at length. I also gave the family a handout regarding fluid and dietary changes that could help to diminish symptoms. Because of the family hist ory of multiple family members regarding ablation for tachycardia they are very anxious. By the end of the visit they seemed comfortable with the diagnosis. We agreed to reevaluate i n 3 months. If symptoms persist and are significantly disruptive to lifestyle we may consid er beta radha therapy but I cautioned that all medications have side effects and if we can control symptoms adequately with fluid and dietary changes she may be better off.Electronic ally signed by Brooklyn Hinson MD at 09/21/2015 2:33 PM PDTdocumented in this encounter Plan of [...] [place] | | | | | | [place] [address] | | | | | | [phone] | | | | | | | | +--------+ + + + + | 09/22/ | Office | Physical Medicine | Gonzalo Merchant | | | 2019 | Visit | and Rehabilitation | [address] | | | | | | [place], [place] | | | | | | [address] | | | | | | | | +--------+ + + + + | 09/29/ | Virtual | Pain Medicine | Peggy Arreola | | | 2019 | Office | | [address] | | | | Visit | | [place] | | | | | | [place], | | | | | | [place] [address] | | | | | | [phone] | | | | | | | | +--------+ + + + + | 01/24/ | Office | Family Medicine | Kurt Campbell, | | | 2020 | Visit | | [address] | | | | | | [place] | | | | | | [address] | | | | | | | | +--------+ + + + + documented as of this encounter Visit Diagnoses + + | Diagnosis | + + | Palpitation - Primary Palpitations | + + documented in this encounter
--- OUTSIDE RECORDS SUMMARY | ~2020-09-05 | XMS | Encounter Summary ---
Demographics + + + | Address | [address] [facility] | | | [place] [address] | + + + | Home Phone [...] Author + + + | Author | [facility] | | | and [place] | + + + | Organization | [facility] | | | [...] | | | | | [place] [address] | | + + + + + | Concha Zeeshanletty | ECON | [address] | | | | | [place] [address] | | + + + + + Care Team Providers + +------+ + | Care Ruling Technician Name | Role | Phone | + +------+ + | Leonid Osorio MD | PCP | | + +------+ + Reason for Visit + + + | Reason | Comments | + + + | Shortness of Breath | | + + + Encounter Details +--------+ + + + + | Date | Type | Department | Care Team | Description | +--------+ + + + + | 02/11/ | Emergency | [facility] | Tam Denney, | Moderate persistent | | 2018 | | MED CTR EMERGENCY | [place] [address] | asthma with acute | | | | [place] [address] | [place] | exacerbation | | | | [place] | [phone] | (Primary Dx) | | | | [address] | | | | | | [phone] | | | +--------+ + + + [...] + + + | Blood Pressure | 131/88 | 02/11/2018 10:30 PM | | | | | PDT | | + + + + + | Pulse | 115 | 02/11/2018 10:30 PM | | | | | PDT | | + + + + + | Temperature | 37.1 C (98.7 F) | 02/11/2018 8:41 PM | | | | | PDT | | + + + + + | Respiratory Rate | 15 | 02/11/2018 10:30 PM | | | | | PDT | | + + + + + | Oxygen Saturation | 95% | 02/11/2018 10:30 PM | | | | | PDT [...] attachments cannot be sent through Care Everywhere.Asthma, Underst anding (Bangladeshi)documented in this encounter Medications at Time of [...] +---------+ + + | predniSONE | Take 4 tablets by | 20 | 0 | 02/12/20 | | | (DELTASONE) 10 mg | mouth Daily for 5 | tablet | | 18 | 8 [...] documented as of this encounter ED Notes Tam Denney MD - 02/11/2018 9:20 PM PDTFormatting of this note might be different fr om the original. [facility] Renny Saravia Emergency Department Encounter Note [address] [place] [address] PCP:Leonid Osorio MD hall CHIEF COMPLAINT: Chief Complaint Patient presents with Shortness of Breath HPI Renny Saravia is a 18 y.o. female who presents to the Emergency Department with per sistent asthma. This is a 18-year-old female has been coughing, having wheezing, and having shortness of breath. She has known asthma has been using inhalers at home without relief. PAST MEDICAL & SURGICAL HISTORY Past Medical History: Diagnosis Date Asthma Depression Depression Hypotension Kidney cysts right Migraine Past Surgical History: Procedure Laterality Date DENTAL SURGERY CURRENT MEDICATIONS Previous Medications DIPHENHYDRAMINE (BENADRYL) 25 MG TABLET Take 25 mg by mouth every 6 hours as needed for Itching. FLUTICASONE (FLONASE) 50 MCG/NASAL SPRAY 1 spray by Nasal route Daily. HYDROXYZINE (ATARAX) 50 MG TABLET Take 25 mg by mouth as needed. IBUPROFEN (ADVIL,MOTRIN) 600 MG TABLET Take 1 tablet by mouth every 6 hours as needed f or Pain. SERTRALINE (ZOLOFT) 25 MG TABLET Take 1 [...] Systems Constitutional: Negative for chills and fever. Respiratory: Positive for cough, shortness of breath and wheezing. As in history of present illness. A 10 system review was otherwise negative. PHYSICAL EXAM VITAL SIGNS: (first vital signs):Temp: 37.1 C (98.7 F) Pulse: 116 (Pt states "I'm a ner vous wreck") Resp: 18 SpO2: 95 % BP: 140/86 There is no height or weight on file to calcula te BMI. Constitutional: female patient, pleasant, alert and appropriate, conversant with nurse and staff. HEENT: Atraumatic, patient follows me around the room with their eyes, PERRL, Oropharynx s hows no redness, moist mucus membranes. Neck: Supple with full range of motion. No JVD, lymphadenopathy, or meningismus. Respiratory: Good air movement bilaterally. Moderate expiratory wheezes, No rales. Patien t's work of breathing is normal. Cardiovascular: Normal S1 S2. No rubs or murmurs Neurologic: Alert & oriented. Cranial nerves II-XII intact. No focal deficits. Gait is n ormal. Speech is normal. Psychiatric: Normal mood, affect and judgement. No evidence of suicidal or homicidal idea tion at this time. ED COURSE & MEDICAL DECISION MAKING Pertinent Labs & Imaging studies were reviewed along with EMS notes and long-term record s if applicable. Medication and Allergy lists reviewed in [facility]. Nurses note and old record s were reviewed if available within [facility] ER course 21:20 - Patient care initiated. After introducing myself to the patient, I performed a car eful history and physical examination. Patient with acute asthma exacerbation. No indication of a serious illness on exam. We wi ll treat symptomatically with steroids and also bronchodilators Last Set of Vital Signs: Temp: 37.1 C (98.7 F) Pulse: 116 (Pt states "I'm a nervous wre ck") Resp: 18 SpO2: 95 % BP: 140/86 FINAL IMPRESSION 1. Moderate persistent asthma with acute exacerbation Disposition: Discharge home Condition: Stable Follow-up Information Schedule an appointment as soon as possible for a visit with Leonid Osorio MD. Specialty: Pediatrics Contact information: [address] [facility] [address] New Prescriptions PREDNISONE (DELTASONE) 10 MG TABLET Take 4 tablets by mouth Daily for 5 days. Discontinued Medications No medications on file Discharge References/Attachments Asthma, Understanding (Bangladeshi) Administrations This Visit albuterol 2.5 mg/3 mL nebulizer solution 2.5 mg Admin Date 02/11/2018 Action Given Dose 2.5 mg Route Nebulization Administered By Chacha Mcdonald RN predniSONE (DELTASONE) tablet 60 mg Admin Date 02/11/2018 Action Given Dose 60 mg Route Oral Administered By Chacha Mcdonald RN Portions of this chart may have been created with [employer] voice recognition software. Occasi onal wrong-word or sound-alike substitutions may have occurred due to the inherent gonsalez itations of voice recognition software. Please read the chart carefully and recognize, using context, where these substitutions have occurred. Tam [place] MD 02/11/182223 Lubna Burks RN - 02/11/2018 8:40 PM PDTPt reports she has been having difficulty breathing x 1 week that she has been treating with her nebulizer. Pt states after she uses the nebulizer, she often coughs up "gross amounts" of yellowish green sputum. Pt states today it began hurting to breathe and she gets "winded" with little activity. documented in this encounter Plan of Treatment [...] | | | | | [place] [address] | | | | | | [phone] | | | | | | | | +--------+ + + + + | 09/22/ | Office | Physical Medicine | Gonzalo Merchant, | | | 2019 | Visit | and Rehabilitation | MD [address] | | | | | | [place] | | | | | | [address] | | | | | | | | +--------+ + + + + | 09/29/ | Virtual | Pain Medicine | Peggy Arreola | | | 2019 | Office | | [address] | | | | Visit | | [place] | | | | | | [place], | | | | | | [place] [address] | | | | | | [phone] | | | | | | | | +--------+ + + + + | 01/24/ | Office | Family Medicine | Kurt Campbell, | | | 2020 | Visit | | [address] | | | | | | [place] | | | | | | [address] | | | | | | | | +--------+ + + + + documented as of this encounter Visit Diagnoses + + | Diagnosis | + + | Moderate persistent asthma with acute exacerbation - Primary | + + documented in this encounter Administered Medications + +--------+ +--------+------+------+ | Medication Order | MAR | Action | Dose | Rate | Site | | | Action | Date | | | | + +--------+ +--------+------+------+ | albuterol 2.5 mg/3 mL nebulizer | Given | 02/12/20 | 2.5 mg | | | | solution 2.5 mg 2.5 mg, | | 18 9:46 | | | | | Nebulization, ONCE, 02/11/18 | | PM PDT | | | | | at 2145, For 1 dose, RT will | | | | | | | administer., | | | | | | + +--------+ +--------+------+------+ +---+---+ | | | +---+---+ + +-------+ +-------+---+---+ | predniSONE (DELTASONE) tablet | Given | 02/12/20 | 60 mg | | | | 60 mg 60 mg, Oral, ONCE, Sat | | 18 9:45 | | | | | 02/11/18 at 2130, For 1 dose | | PM PDT | | | | + +-------+ +-------+---+---+ +---+---+ | | | +---+---+ documented in this encounter
--- OUTSIDE RECORDS SUMMARY | ~2020-09-05 | XMS | Encounter Summary ---
Demographics + + + | Address | [address] [facility] [address] | | | [place] [address] | + + + | Home Phone [...] Author + + + | Author | [facility] [place] | | | and [place] | + + + | Organization | [facility] | | | and [...] | | | | | [place] [address] | | + + + + + | Concha Paulino | ECON | [address] | | | | | [place] [address] | | + + + + + Care Team Providers + +------+ + | Care Polymer Chemist Name | Role | Phone | + +------+ + PCP | Unavailable | + +------+ + Encounter Details +--------+ + + + + | Date | Type | Department | Care Team | Description | +--------+ + + + + | 03/08/ | Hospital | [facility] | Laurie Robledo | | | 2010 | Encounter | MED CTR XRAY [address] | MD Genna [address] | | | | | [place] | [address] [place] | | | | | [place] [address] | [place] [address] | | | | | [phone] | [phone] | | | | | | | [...] | | | | | [place] [address] | | | | | | [phone] | | | | | | | | +--------+ + + + + | 09/22/ | Office | Physical Medicine | Gonzalo Merchant, | | | 2019 | Visit | and Rehabilitation | [address] | | | | | | [place] | | | | | | [address] | | | | | | | | +--------+ + + + + | 09/29/ | Virtual | Pain Medicine | Peggy Arreola | | | 2019 | Office | | [address] | | | | Visit | | [place] | | | | | | [address], | | | | | | [place] [address] | | | | | | [phone] | | | | | | | | +--------+ + + + + | 01/24/ | Office | Family Medicine | Kurt Campbell, | | | 2020 | Visit | | DO [address] | | | | | | [place] | | | | | | [address] | | | | | | | | +--------+ + + + + documented as of this encounter Procedures + +--------+ + + + | Procedure Name | Priori | Date/Time | Associated Diagnosis | Comments | | | ty | | | | + +--------+ + + + | XR TOE LEFT 2 + VW | Routin | 03/09/2011 | | Results for this | | | e | 7:49 AM | | procedure are in the | | | | PDT | | results section. | + +--------+ + + + documented in this encounter Results XR Toe Left 2 + Vw (03/09/2011 7:49 AM PDT) + + | Specimen | + + | | + + + + + | Narrative | Performed At | + + + | [facility] Diagnostic Imaging | GRAVITY | | Department [address] [place] | [facility] | | [ rep [address]] [ rep [facility] | | st zip] Signed | - IMAGING | | | | | Patient Name: RENNY OLIVER | | | Physician: EDE : 2000 Age: 13 Sex: F Unit | | | #: [id number] Exam Date: 03/08/11 Location: | | | [facility] [place] [place]: [id number] Page: | | | %(RAD)RES..mtdd.print.filter("pg") of %(RAD) | | | RES..mtdd.print.filter("tpg") | | | | | | Accession Number: [id number] | | | THREE VIEWS LEFT TOES, 03/08/2011 CLINICAL HISTORY: | | | PAIN FOLLOWING INJURY. COMPARISON: None. | | | FINDINGS: The bones are well mineralized and well aligned. Subtle | | | lucency through the plantar cortex of the distal tuft of the | | | distal phalanx of the great toe on the lateral view raises the | | | possibility of a nondisplaced hairline fracture. There is no | | | other potential evidence of fracture or dislocation. Joint | | | spaces and physis appear maintained. Soft tissue swelling is | | | suggested within the great toe. IMPRESSION: 1. | | | POSSIBLE NONDISPLACED HAIRLINE FRACTURE INVOLVING THE DISTAL TUFT OF | | | THE FIRST DIGIT. Dictated Date/Time: 03/09/2011 | | | 07:48 Transcribed Date/Time: 03/09/2011 07:54 | | | Director Of Pharmacy: <<Signature on File>> | | | Oz | | | Baljeet Cedillo MD03/09/1105 <Electronically signed by Oz Cedillo | | | MD> Oz Cedillo MD 03/09/11 0749 Director Of Pharmacy: | | | [employer] Urnttofylpzwp46/15/11 0749 | | + + + + + + + + | Performing | Address | City/State/Zipcode | Phone Number | | Organization | | | | + + + + + | [facility] | [address] | [place] | [phone] | | [facility] | | [address] | | | - IMAGING | | | | + + + + + documented in this encounter Visit Diagnoses Not on filedocumented in this encounter
--- OUTSIDE RECORDS SUMMARY | ~2020-09-05 | XMS | Encounter Summary ---
Demographics + + + | Address | [address] [facility] [facility] | | | [place] [address] | + + + | Home Phone [...] + + + | Author | [facility] | | | and [place] | + + + | Organization | [facility] | | [...] | | | | | [place] [address] | | + + + + + | Concha Paulino | ECON | [address] | | | | | [place] [address] | | + + + + + Care Team Providers + +------+ + | Care Senior Living Advisor Name | Role | Phone | + +------+ + | Leonid Osorio MD | PCP | | + +------+ + Reason for Visit +--------+--------+ + | Reason | Onset | Comments | | | Date | | +--------+--------+ + | Other | 08/03/ | | | | 2014 | | +--------+--------+ + Encounter Details +--------+ + + + + | Date | Type | Department | Care Team | Description | +--------+ + + + + | 08/03/ | Telephone | [facility] | Milton Quinones | Other | | 2014 | | for Congenital Heart | Americo Crow MD [address] | | | | | Disease [address] | | | | [address] | [place] [address] | | | | | [place], [place] | [phone] | | | | | [address] | | | | | | [phone] | | | +--------+ + + + [...] Telephone Encounter - Meena Martinez LPN - 08/03/2015 12:[address] Quin[address], see if family can have echo disk sent to us to review, mom can request another echo at visit but may have to be done at another sujatha. If the doctor seeing her can decide if another echo needed, can do monitor at that visit, per mom does not have daily episodes, but does have f amily members that had ablation, for fast heart rate episodes per mom, per Dr. Quinones, order event monitor and has sujatha with Dr. Langford [place], mom informed, would order event monitor , mom verbalizes understands instructions elephone Encounter - Miya Lomax - 08/03/2015 10:24 AM PDT Mother would like to know why no echo was ordered and if she can request to have echo done o n DOS please return call, thank you 1 0:26 AM PDTdocumented in this encounter Plan of [...] | | | | | [place] [address] | | | | | | [phone] | | | | | | | | +--------+ + + + + | 09/22/ | Office | Physical Medicine | Gonzalo Merchant, | | | 2019 | Visit | and Rehabilitation | [address] | | | | | | [place] | | | | | | [address] | | | | | | | | +--------+ + + + + | 09/29/ | Virtual | Pain Medicine | Peggy Arreola | | 2019 | Office | | [address] | | | | Visit | | [place] | | | | | | [place], | | | | | | [place] [address] | | | | | | [phone] | | | | | | | | +--------+ + + + + | 01/24/ | Office | Family Medicine | VaKurt davis, | | | 2020 | Visit | | DO [address] | | | | | | [place] | | | | | | [address] | | | | | | | | +--------+ + + + + documented as of this encounter Results EVENT MONITOR 4 WEEK (09/13/2015 10:47 AM PDT) + + + | Narrative | Performed At | + + + | Manny | | | Reg Saldaña MD 09/13/2015 10:4709/13/2015 Leonid Soto | | | MD Renny Osorio ( 2000) , underwent ambulatory | | [...] Dr. Hinson | | | [facility] | | |5. Heart rate range: [...] | | |Manny Saldaña MD | | |[facility] Congenital Heart Disease | | |Pediatric Cardiology | | | | | | | | + + + documented in this encounter Visit Diagnoses + + | Diagnosis | + + | Tachycardia - Primary Tachycardia, unspecified | + + documented in this encounter"
--- OUTSIDE RECORDS SUMMARY | ~2020-09-05 | XMS | Encounter Summary ---
Demographics + + + | Address | [address] [facility] | | | [place] [address] | + + + | Home Phone | | + + + | Preferred Language | Unknown | + + + | Marital Status | Single | + + + | Adventist Affiliation | 1059 | + + + | Race | Unknown | + + + | Ethnic Group | Not or | + + + Author + + + | Author | [facility] | | | and [place] | + + + | Organization | [facility] | | | [...] | | | | | [place] [address] | | + + + + + | Concha Paulino | ECON | [address] | | | | | [place] [address] | | + + + + + Care Team Providers + +------+ + | Care Loom Fixer Supervisor Name | Role | Phone | + +------+ + | Chance Easley MD | PCP | | + +------+ + Encounter Details +--------+ + + + + | Date | Type | Department | Care Team | Description | +--------+ + + + + | 11/08/ | Hospital | [facility] | Gonzalo Merchant, | Adolescent | | 2013 | Encounter | MED CTR XRAY [address] | MD [address] | idiopathic scoliosis | | | | [place] | [place] | of thoracolumbar | | | | [place] [address] | [address] | region | | | | [phone] | | | +--------+ + + + [...] + + +---------+--------+ + | fluticasone | 2 sprays by [...] | + + + +---------+--------+ + | MELATONIN | 3 mg by Does not | | 0 | | | | | apply route. | | | | 5 | + + + +---------+--------+ + | montelukast | Take 5 mg by mouth | | 0 | | | | (SINGULAIR) 5 mg | nightly. | | | | 7 | | chewable tablet | | | | | | + + + +---------+--------+ + | Norgestim-Eth | Take 1 tablet by | | 0 | | | | Estrad Triphasic | mouth Daily. | | | | 5 | | (ORTHO TRI-CYCLEN LO | | | | | | | PO) | | | | | | + + + +---------+--------+ + | sertraline | Take 50 mg [...] [address] | | | | | | [address] [place] | | | | | | [place] [address] | | | | | | [phone] | | | | | | | | +--------+ + + + + | 09/22/ | Office | Physical Medicine | Gonzalo Merchant, | | | 2019 | Visit | and Rehabilitation | MD [address] | | | | | | [place] | | | | | | [address] | | | | | | | | +--------+ + + + + | 09/29/ | Virtual | Pain Medicine | Peggy Arreola | | 2019 | Office | | [address] | | | | Visit | | [place] | | | | | | [place] | | | | | | [place] [address] | | | | | | [phone] | | | | | | | | +--------+ + + + + | 01/24/ | Office | Family Medicine | Kurt Campbell, | | | 2020 | Visit | | DO [address] | | | | | | [place] | | | | | | [address] | | | | | | | | +--------+ + + + + documented as of this encounter Procedures + +--------+ + + + | Procedure Name | Priori | Date/Time | Associated Diagnosis | Comments | | | ty | | | | + +--------+ + + + | XR THORACOLUMBAR | Routin | 11/08/2014 | Adolescent | Results for this | | STANDING FOR | e | 3:32 PM | idiopathic scoliosis | procedure are in the | | SCOLIOSIS | | PST | of thoracolumbar | results section. 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
--- OUTSIDE RECORDS SUMMARY | ~2020-09-05 | XMS | Encounter Summary ---
Demographics + + + | Address | [address] | | | [place] [address] | + + + | Home Phone | | + + + | Preferred Language | Unknown | + + + | Marital Status | Single | + + + | Samaritan Affiliation | 1059 | + + + | Race | Unknown | + + + | Ethnic Group | Not or | + + + Author + + + | Author | [facility] | | | and [place] | + + + | Organization | [facility] | | [...] | | | | | [place] [address] | | + + + + + | Concha Paulino | ECON | [address] | | | | | [place] [address] | | + + + + + Care Team Providers + +------+ + | Care Medical Collections Name | Role | Phone | + +------+ + | Leonid Osorio MD | PCP | | + +------+ + Reason for Visit +--------+ + | Reason | Comments | +--------+ + | Cough | RM 1- cough, swollen tonsils, sore throat X 3 days | +--------+ + Encounter Details +--------+---------+ + + + | Date | Type | Department | Care Team | Description | +--------+---------+ + + + | 11/28/ | Office | [facility] | Herbie Peterson | Cough (Primary Dx); | | 2016 | Visit | CARE [address] | Juan R Crow MD | Pharyngitis, | | | | [place] | [address] | unspecified etiology | | | | [address] | [place] | | | | | [phone] | [address] | | | | | [...] + + + | Blood Pressure | 112/71 | 11/28/2016 4:05 PM | | | | | PST | | + + + + + | Pulse | 97 | 11/28/2016 4:05 PM | | | | | PST | | + + + + + | Temperature | 37.6 C (99.6 F) | 11/28/2016 4:05 PM | | | | | PST | | + + + + + | Respiratory Rate | 18 | 11/28/2016 4:05 PM | | | | | PST | | + + + + + | Oxygen Saturation | 98% | 11/28/2016 4:05 PM | | | | | PST | | + + + + + | Inhaled Oxygen | - | - | | | Concentration | | | | + + + + + | Weight | 48.9 kg (107 lb 11.2 | 11/28/2016 4:05 PM | | | | oz) | PST | | + + + + + | Height | 160 cm (5' 3") | 11/28/2016 4:05 PM | | | | | PST | | + + + + + | Body Mass Index | 19.08 | 11/28/2016 4:05 PM | | | | | PST | | + + + + + documented in this encounter Patient Instructions Patient Instructions Herbie Peterson Jr., MD - 11/28/2016 5:00 PM PST Follow-up with your doctor or the clinic if not improving in 5 days. Take medication as directed Increase fluid intake Recheck sooner, in the clinic, with your doctor or in the ER, if your symptoms worsen or ne w problems develop 5: 00 PM PST documented in this encounter Progress Notes Herbie Peterson Jr., MD - 11/28/2016 4:15 PM Beti Yola [place] manuel Chief Complaint: 3 day history of sore throat cough and fever HPI: Patient developed a cough 3 days ago. This was followed by sore throat, headache, piyush dy aches and fever. She's had clear rhinorrhea. The cough is been nonproductive. She's thompson d no GI symptoms. She has no known strep exposure. She did not get a flu vaccine this year Past medical history, past surgical history, medication reviewed. Physical Exam: No acute distress, alert and oriented, non-toxic in appearance BP 112/71 mmHg | Pulse 97 | Temp(Src) 37.6 C (99.6 F) (Temporal) | Resp 18 | Ht 1.6 m ( 5' 3") | Wt 48.852 kg (107 lb 11.2 oz) | BMI 19.08 kg/m2 | SpO2 98% Nose: clear Ears: TM's not inflamed Throat: erythema, Exudate on the right tonsil no trismus, uvula midline Neck: Supple, no stridor, no adenopathy Chest: No rales, no rhonchi, no wheezes, good breath sounds bilaterally, no respiratory di stress Heart: Regular rhythm, no murmur, no gallop, no rub Strep screen: negative Flu test: Invalid test Diagnosis: Tonsillitis, cough Plan: Zithromax Follow-up with your doctor or the clinic if not improving in 5 days. Take medication as directed Increase fluid intake Recheck sooner, in the clinic, with your doctor or in the ER, if your symptoms worsen or ne w problems develop This note dictated with Charissa and was not proofread. Sandra malone in this encounter Miscellaneous Notes Addendum Note - Christine Patel Cert MA - 11/29/2016 8:18 AM PST Addended by: CHRISTINE PATEL on: 11/29/2016 08:18 Modules accepted: Orders documented in th is encounter Plan of [...] | | | | | | [place] [address] | | | | | | [phone] | | | | | | | | +--------+ + + + + | 09/22/ | Office | Physical Medicine | Gonzalo Merchant, | | | 2019 | Visit | and Rehabilitation | [address] | | | | | | [place] | | | | | | [address] | | | | | | | | +--------+ + + + + | 09/29/ | Virtual | Pain Medicine | Peggy Arreola | | 2019 | Office | | [address] | | | | Visit | | [place] | | | | | | [place] | | | | | | [place] [address] | | | | | | [phone] | | | | | | | | +--------+ + + + + | 01/24/ | Office | Family Medicine | Kurt Campbell, | | | 2020 | Visit | | DO [address] | | | | | | [place] | | | | | | [address] | | | | | | | | +--------+ + + + + documented as of this encounter Procedures + +--------+ + + + | Procedure Name | Priori | Date/Time | Associated Diagnosis | Comments | | | ty | | | | + +--------+ + + + | POCT STREPTOCOCCUS A | Routin | 11/29/2016 | Pharyngitis, | Results for this | | NAAT | e | 8:17 AM | unspecified etiology | procedure are in the | | | | PST | | results section. | + +--------+ + + + documented in this encounter Results POCT Streptococcus A NAAT (11/29/2016 8:17 AM PST) + + + + + + | Component | Value | Ref Range | Performed | Pathologist | | | | | At | Signature | + + + + + + | Group A | Negative | Negative | | | | Strep, DNA | | | | | | POC | | | | | + + + + + + | Internal QC | Acceptable | | | | + + + + + + | CULTURE | | | | | | SENT TO LAB | | | | | + + + + + + + + | Specimen | + + | | + + documented in this encounter Visit Diagnoses + + | Diagnosis | + + | Cough - Primary | + + | Pharyngitis, unspecified etiology | + + documented in this encounter
--- OUTSIDE RECORDS SUMMARY | ~2020-09-05 | XMS | Encounter Summary ---
Demographics + + + | Address | [address] [facility] | | | [place] [address] | + + + | Home Phone [...] Author + + + | Author | [facility] | | | and [place] | + + + | Organization | [facility] | | | [...] | | | | | [place] [address] | | + + + + + | Concha Paulino | ECON | [address] | | | | | [place] [address] | | + + + + + Care Team Providers + +------+ + | Care Yarn Worker Name | Role | Phone | + +------+ + | Tomeka Gomez | PCP | | | Fabian DO | | | + +------+ + Reason for Visit + + + | Reason | Comments | + + + | Contractions | | + + + Encounter Details +--------+ + + + + | Date | Type | Department | Care Team | Description | +--------+ + + + + | 08/25/ | Hospital | [facility] | Tomeka Gomez | | | 2017 | Encounter | MED CTR LABOR AND | Fatimah Peralta DO | | | | | DELIVERY [address] | [address] [facility] | | | | | [place], | [place] | | | | | [place] [address] | [address] | | | | | [phone] | | | +--------+ + + + [...] + + + + | Weight | 54.9 kg (121 lb) | 08/25/2017 5:25 PM | | | | | PDT | | + + + + + | Height | 157.5 cm (5' 2") | 08/25/2017 5:25 PM | | | | | PDT | | + + + + + | Body Mass Index | 22.13 | 08/25/2017 5:25 PM | | | | | PDT | | + + + + + documented in this encounter Discharge Instructions Instructions Annalisa Singh RN - 08/25/2017Discharge Education for the Undelivered Patie nt You [...] a pad Temperature over 100.4 (38 C) AttachmentsThe following attachments cannot be sent through Care Everywhere. Fibronect in (French)Labor, Understanding (French)documented in this encounter Medications at Time of [...] documented as of this encounter Progress Notes Annalisa Singh RN - 08/25/2017 6:56 PM PDTDischarge instructions given. Pre-term labor precautions provided. Denies further questions or concerns. Discharged home with significant other. Annalisa Rubio RN - 08/25/2017 6:50 PM PDTKhoa 's recording. Pt states she may have felt 2 contracti ons since arriving. notified of positive FFN and SVE and EFM. Discharge orders rec' d. Yasmine Rubiofer L, RN - 08/25/2017 4:55 PM PDTPt presents to unit with complaints of regular contractions on a nd off for 2 weeks, became more regular and painful the last two days. Denies leaking of flu id or bleeding. Reports normal activity. Reports passing hard stool yesterday. Denies urinary symptoms. UA sample obtained and sent to lab. documented in this encounter Plan of Treatment [...] | | | | | [place] [address] | | | | | | [phone] | | | | | | | | +--------+ + + + + | 09/22/ | Office | Physical Medicine | Gonzalo Merchant, | | | 2019 | Visit | and Rehabilitation | MD [address] | | | | | | [place] | | | | | | [address] | | | | | | | | +--------+ + + + + | 09/29/ | Virtual | Pain Medicine | Peggy Arreola | | | 2019 | Office | | [address] | | | | Visit | | [place] | | | | | | [place] | | | | | | [place] [address] | | | | | | [phone] | | | | | | | | +--------+ + + + + | 01/24/ | Office | Family Medicine | Kurt Campbell, | | | 2020 | Visit | | DO [address] | | | | | | [place] | | | | | | [address] | | | | | | | | +--------+ + + + + documented as of this encounter Procedures + +--------+ + + + | Procedure Name | Priori | Date/Time | Associated Diagnosis | Comments | | | ty | | | | + +--------+ + + + | FIBRONECTIN | Routin | 08/25/2017 | | Results for this | | | e | 6:00 PM | | procedure are in the | | | | PDT | | results section. | + +--------+ + + + | URINALYSIS WITH | Routin | 08/25/2017 | | Results for this | | MICROSCOPIC WITH | e | 5:07 PM | | procedure are in the | | CULTURE IF INDICATED | | PDT | | results section. | + +--------+ + + + | CULTURE, URINE | Routin | 08/25/2017 | | Results for this | | | e | 5:07 PM | | procedure are in the | | | | PDT | | results section. | + +--------+ + + + documented in this encounter Results Fibronectin (08/25/2017 6:00 PM PDT) + + + + + + | Component | Value | Ref Range | Performed | Pathologist | | | | | At | Signature | + + + + + + | | Positive (A) | Negative | [facility] | | | [facility] | [facility] | [facility] | | [...] ST. | [address] | [place] | [phone] | | [facility] | | [address] | | | - LABORATORY | | | | + + + + + Culture, Urine (08/25/2017 5:07 PM PDT) + + + + + + | Component | Value | Ref Range | Performed | Pathologist | | | | | At | Signature | + + + + + + | Culture | No Growth | | [facility] | | | | | | [facility] [...] ST. | [address] | [place], [place] | [phone] | | [facility] | | [address] | | | - LABORATORY | | | | + + + + + Urinalysis with Microscopic with Culture if Indicated (08/25/2017 5:07 PM PDT) + + + + + [...] + + + + | Specific | 1.018 | 1.001 - 1.030 | [facility] | | | [place], | | | [facility] | | [...] | | Comment | | | [facility] | | [...] ST. | [address] | [place] | [phone] | | [facility] | | [address] | | | - LABORATORY | | | | + + + + + documented in this encounter Visit Diagnoses Not on filedocumented in this encounter
--- OUTSIDE RECORDS SUMMARY | ~2020-09-05 | XMS | Encounter Summary ---
Demographics + + + | Address | [address] | | | [place] [address] | + + + | Home Phone | | + + + | Preferred Language | Unknown | + + + | Marital Status | Single | + + + | Pentecostal Affiliation | 1059 | + + + | Race | Unknown | + + + | Ethnic Group | Not or | + + + Author + + + | Author | [facility] | | | and [place] | + + + | Organization | [facility] | | [...] | | | | | [place] [address] | | + + + + + | Concha Paulino | ECON | [address] | | | | | [place] [address] | | + + + + + Care Team Providers + +------+ + | Care Aluminum Hydroxide Process Operator Name | Role | Phone | + +------+ + | Kurt Campbell DO | PCP | | + +------+ + Reason for Visit + +--------+ + | Reason | Onset | Comments | | | Date | | + +--------+ + | Results, Imaging | 03/04/ | | | | 2018 | | + +--------+ + Encounter Details +--------+ + + + + | Date | Type | Department | Care Team | Description | +--------+ + + + + | 03/04/ | Telephone | [facility] | Kurt Campbell, | Results, Imaging | | 2018 | | MEDICINE [place] | DO [address] | | | | | [address] | [place] | | | | | [place] | [address] | | | | | [address] | | | | | | [phone] | | | +--------+ + + + [...] this encounter Miscellaneous Notes Telephone Encounter - Summer Roche CMA - 03/05/2019 1:22 PM PDTCalled and relayed in formation to patient. She understood results and had no questions. Verified upcoming appointment on 04/01/2019 at 1430 elephone Encounter - Annalisa Lei - 03/05/2019 12:4 3 PM PDTPatient called back to speak to nurse. elephone Encounter - Deborah Miller - 03/05/2019 7:18 AM PD TPatient returned call to speak with the nurse. Please call patient to advise, . elephone Encounter - Summer Roche CMA - 03/04/2019 6:02 PM PDTCalled and left a message for patient to re turn my call. ewiliam vera Encounter - Summer Rohce CMA - 03/04/2019 6:01 PM PDT----- Message from Kurt Campbell DO sent at 03/04/2019 17:48 PDT ----- S-shaped scoliosis with mild progression in the thoracic spine measuring 14 which was inc reased from 8 compared to 2013 We can discuss management and monitoring at her next appointment documented in this encounter Plan of Treatment [...] | | | | | [place] [address] | | | | | | [phone] | | | | | | | | +--------+ + + + + | 09/22/ | Office | Physical Medicine | Gonzalo Merchant, | | | 2019 | Visit | and Rehabilitation | MD Dane Johnson | | | | | | [place] | | | | | | [address] | | | | | | | | +--------+ + + + + | 09/29/ | Virtual | Pain Medicine | Peggy Arreola | | | 2019 | Office | | [address] | | | | Visit | | [place] | | | | | | [place] | | | | | | [place] [address] | | | | | | [phone] | | | | | | | | +--------+ + + + + | 01/24/ | Office | Family Medicine | Kurt Campbell, | | | 2020 | Visit | | DO [address] | | | | | | [place] | | | | | | [address] | | | | | | | | +--------+ + + + + documented as of this encounter Visit Diagnoses Not on filedocumented in this encounter"
--- OUTSIDE RECORDS SUMMARY | ~2020-09-05 | XMS | Encounter Summary ---
Demographics + + + | Address | [address] | | | [place] [address] | + + + | Home Phone [...] | | | | | [place] [address] | | + + + + + | Concha Paulino | ECON | [address] | | | | | [place] [address] | | + + + + + Care Team Providers + +------+ + | Care Coffee Sampler Name | Role | Phone | + +------+ + | Kurt Campbell DO | PCP | | + +------+ + Reason for Visit + +--------+ + | Reason | Onset | Comments | | | Date | | + +--------+ + | Follow-up | 01/29/ | COVID | | | 2020 | | + +--------+ + Encounter Details +--------+ + + + + | Date | Type | Department | Care Team | Description | +--------+ + + + + | 01/29/ | Telephone | [facility] | Serjio Clark | Follow-up (COVID) | | 2019 | | CARE [address] MD [address] | | | | | [place] | [place] | | | | | [address] | [address] | | | | | [phone] | | | +--------+ + + + [...] this encounter Miscellaneous Notes Telephone Encounter - Jackie Fletcher RN - 02/01/2020 12:05 PM PDTDid you contact our community hospital department? no [facility] [phone] [place] If an [place] resident, [facility] [phone] What did they advise? n/a Describe your symptoms? Denied any continued symptoms. Are they getting worse? NO Are they getting better? YES "all pretty much gone now." Have you traveled to or been in contact with with someone who has traveled to [place], [place], [place], [place], or [place] within the last month? No Are you being monitored by the Health Department? NO Do you have any other concerns? NO Would you like me to make you an appointment with your PCP? (Transfer to call center for an appointment) NO Recommendations: Plan: Take doxycycline as prescribed until gone. Continue albuterol and Flovent inhalers as before. Drink plenty of fluids and get plenty of rest. Use ahha-ufy-pzfofrw Tylenol or Advil as needed for fever, aches and pains. Lavage nose with saline solution 3-4 times a day to improve nasal congestion. Mix 1/2 teasp oon of table salt with 2 cups of lukewarm water for nasal irrigation. Use cool mist vaporizer in bedroom and living space to reduce cough and airway irritation. Gargle and spit out warm salt water to soothe sore throat. Use throat lozenges of choice an d/or Cepastat throat spray as needed. Take yzhw-myi-akwtuup Mucinex or equivalent product as needed for thick mucous. Use Robitussin-DM as needed for cough. Continue to isolate using a mask when out and about and using handwashing to protect others from your illness. Contact Dr. Campbell or [facility] if new or progressive associated symptoms develop. Return or follow-up with your primary doctor if not better in 1 week, sooner if experiencin g difficulty swallowing liquids, progressive productive cough, associated chest pain, shortn ess of breath, progressive wheezing, fever, vomiting or progessive sinus pressure/headache. Diligent hand washing. Soap and water is best for minium of 30 seconds. If using hand sanit izer, must scrub 4 full minutes to kill Coronavirus. Rest Fluids, sports drinks, Pedialyte Monitor temperature. If fever of 100.4 alternate use of Tylenol and Ibuprofen every 4 hours . If fever does not come down try a cool shower, light clothing, cool cloth to armpits and b ack of neck, and use of fan. If fever is not resolved within 24 hours or spikes to 103.0 ple ase call your doctors office or Urgent care on weekends. Stay at home so as not to spread germs to the public. If get diarrhea it is best to sanitize toilet with bleach after use. elephone EncDelfina Serra, Adobe Ball Mixer - 01/30/2020 11:53 AM PSTPlease follow up on p atient. Patient was seen and I was concerned about for the COVID-19 but patient was not test ed. [facility] ummariano in this encounter Plan of Treatment +--------+ + + + + | Date | Type | Specialty | Care Team | Description | +--------+ + + + + | 09/07/ | Office | Cardiology | Tawana Mcdonald | | | 2019 | Visit | | GLEN Morales | | | | | | [place] | | | | | | [place] [address] | | | | | | [phone] | | | | | | | | +--------+ + + + + | 09/22/ | Office | Physical Medicine | Gonzalo Merchant, | | 2019 | Visit | and Rehabilitation | MD Dane Johnson | | | | | | [place] | | | | | | [id number] | | | | | | | | +--------+ + + + + | 09/29/ | Virtual | Pain Medicine | ElbaPacheco arteagaelle | | | 2019 | Office | | [address] | | | | Visit | | [place] | | | | | | [place] | | | | | | [place] [address] | | | | | | [phone] | | | | | | | [...]
--- OUTSIDE RECORDS SUMMARY | ~2020-09-05 | XMS | Encounter Summary ---
Demographics + + + | Address | [address] | | | [place] [address] | + + + | Home Phone [...] | | | | | [place] [address] | | + + + + + | Concha Paulino | ECON | [address] | | | | | [place] [address] | | + + + + + Care Team Providers + +------+ + | Care Dedicated Regional Driver Name | Role | Phone | + +------+ + | Kurt Campbell DO | PCP | | + +------+ + Encounter Details +--------+ + + + + | Date | Type | Department | Care Team | Description | +--------+ + + + + | 03/02/ | Hospital | [facility] | Kurt Campbell, | | | 2019 | Encounter | MED CTR XRAY [address] | DO [address] | | | | | [place] | [place] | | | | | [place] [address] | [address] | | | | | [phone] | | | +--------+ + + + [...] tablet by | 30 | 2 | 03/02/20 | | | (ZOLOFT) 50 mg | [...] | | | | | | [place] [address] | | | | | | [phone] | | | | | | | | +--------+ + + + + | 09/22/ | Office | Physical Medicine | Gonzalo Merchant | | | 2019 | Visit | and Rehabilitation | [address] | | | | | | [place], [place] | | | | | | [address] | | | | | | | | +--------+ + + + + | 09/29/ | Virtual | Pain Medicine | Peggy Arreola | | 2019 | Office | | [address] | | | | Visit | | [place] | | | | | | [place] | | | | | | [place] [address] | | | | | | [phone] | | | | | | | | +--------+ + + + + | 01/24/ | Office | Family Medicine | Kurt Campbell, | | | 2020 | Visit | | DO [address] | | | | | | [place] | | | | | | [address] | | | | | | | | +--------+ + + + + documented as of this encounter Procedures + +--------+ + + + | Procedure Name | Priori | Date/Time | Associated Diagnosis | Comments | | | ty | | | | + +--------+ + + + | XR SCOLIOSIS ENTIRE | Routin | 03/02/2019 | Scoliosis of | Results for this | | SPINE 2-3 VWS | e | 3:53 PM | thoracic spine, | procedure are in the | | | | PDT | unspecified | results section. | | | | | scoliosis type | | + +--------+ + + + documented in this encounter Results XR Scoliosis Entire Spine [...]
--- OUTSIDE RECORDS SUMMARY | ~2020-09-05 | XMS | Encounter Summary ---
Demographics + + + | Address | [address] | | | [place] [address] | + + + | Home Phone [...] Author + + + | Author | [facility] | | | and [place] | + + + | Organization | [facility] | | [...] | | | | | [place] [address] | | + + + + + | Concha Paulino | ECON | [address] | | | | | [place] [address] | | + + + + + Care Team Providers + +------+ + | Care Game Author Name | Role | Phone | + +------+ + | Kurt Campbell DO | PCP | | + +------+ + Reason for Visit + +--------+ + | Reason | Onset | Comments | | | Date | | + +--------+ + | Procedure | 04/30/ | colon/ivcs | | | 2018 | | + +--------+ + Encounter Details +--------+ + + + + | Date | Type | Department | Care Team | Description | +--------+ + + + + | 04/30/ | Telephone | [facility] | Kanu Kidd | Procedure | | 2019 | | GASTROENTEROLOGY | MD Charles [address] | (colon/ivcs) | | | | [address] [facility] | [facility] | | | | | [address], [place] | [place] [address] | | | | | [address] | [phone] | | | | | [phone] | | | +--------+ + + + [...] this encounter Miscellaneous Notes Telephone Encounter - Liz Reza RN - 04/30/2019 3:30 PM PDTSent to booking and cheri tate. elephone Encoun Hayder Flores - 04/30/2019 1:15 PM PDTPatient returning SAMUEL Delcid call . Routing to clinical staff. Patient phone number: [phone] signed by Hayder Stevenson at 04/30/2019 1:28 PM PDTTelephone Encounter - Farhana Armando Shot Coat Tender - 04/30/20 19 11:11 AM PDTScheduled patient for colon/IVCS with Dr. Kidd on 05/27/2019 with a check in time of 8 am. Reviewed medication, and allergies; reviewed bowel prep, depending on insuran ce. Suprep bottle kit starting the day before with the first bottle at 4 pm and second bottl e at 9 pm. Golytely bottle prep, patient will start at 4 pm the day before procedure. Nothin g to drink 4 hours prior to appointment; rx to [facility]; info mailed to pt; patient verbaliz ed understanding.(Patient confirmed that she is not , reason she decided to proceed with procedure.) Screening; Fm hx of colon cancer; hx of polyps. documented in this encounter Plan of Treatment [...] | | | | | [place] [address] | | | | | | [phone] | | | | | | | | +--------+ + + + + | 09/22/ | Office | Physical Medicine | Gonzalo Merchant, | | 2019 | Visit | and Rehabilitation | MD Vela [address] | | | | | | [place] | | | | | | [address] | | | | | | | | +--------+ + + + + | 09/29/ | Virtual | Pain Medicine | Peggy Arreola | | | 2019 | Office | | [address] | | | | Visit | | [place] | | | | | | [place] | | | | | | [place] [address] | | | | | | [phone] | | | | | | | | +--------+ + + + + | 01/24/ | Office | Family Medicine | Kurt Campbell, | | | 2020 | Visit | | DO [address] | | | | | | [place] | | | | | | [address] | | | | | | | | +--------+ + + + + documented as of this encounter Visit Diagnoses + + | Diagnosis | + + | Special screening for malignant neoplasms, colon - Primary | + + | Family hx of colon cancer Family history of malignant neoplasm of gastrointestinal | | tract | + + documented in this encounter"
--- OUTSIDE RECORDS SUMMARY | ~2020-09-05 | XMS | Encounter Summary ---
Demographics + + + | Address | [address] | | | [place] [address] | + + + | Home Phone | | + + + | Preferred Language | Unknown | + + + | Marital Status | Single | + + + | Judaism Affiliation | [id number] | + + + [...] | | | | | [place] [address] | | + + + + + | Concha Zeeshanletty | ECON | [address] | | | | | [place] [address] | | + + + + + Care Team Providers + +------+ + | Care Bank Boss Name | Role | Phone | + [...] + + | Denied | Specialty | Pain Medicine | Diagnoses | Merchant, | [facility] | | | Services | | Chronic | Gonzalo Weir MD | Dolorology | | | Required | | right-sided | [address] | | | | | thoracic | [address] | [address] GLEASON | | | | | back pain | [place], | [place], [place] | | | | | Trigger | [place] [address] | [address] | | | | | point of | Phone: | Phone: | | | | | thoracic | [phone] | [phone] | | | | | region | Fax: | Fax: | | | | | | [phone] | [phone] | +--------+ + + + + + Reason for Visit + + + | Reason | Comments | + + + | Follow-up | Discuss options | + + + | Back Pain | | + + + Evaluate [...] [place], | | | | | | [address] | [place] [address] | | | | | | Phone: | Phone: | | | | | | [phone] | [phone] | | | | | | Fax: | Fax: | | | | | | [phone] | [phone] | + + + + + + + Encounter Details +--------+---------+ + + + | Date | Type | Department | Care Team | Description | +--------+---------+ + + + | 07/18/ | Office | [facility] | Gonzalo Merchant, | Chronic right-sided | | 2020 | Visit | PHYSIATRY [address] | MD [address] | thoracic back pain | | | | [address] | [place] | (Primary Dx); | | | | [place] | [address] | Trigger point of | | | | [address] | | thoracic region | | | | [phone] | | | +--------+---------+ + + + [...] + + + | Blood Pressure | 101/66 | 07/18/2020 10:46 AM | | | | | PDT | | + + + + + | Pulse | 89 | 07/18/2020 10:46 AM | | | [...] Weight | 46.3 kg (102 lb) | 07/18/2020 10:46 AM | | | | | PDT | | + + + + + | Height | 157.5 cm (5' 2") | 07/18/2020 10:46 AM | | | | | PDT | | + + + + + | Body Mass Index | 18.66 | 07/18/2020 10:46 AM | | | [...] of this encounter Patient Instructions Patient Instructions Chetna Alvarado RN - 07/18/2020 10:40 AM PDT- Please continue to do your physical therapy exercises - Please follow the taper instructions for the Baclofen - You may consider possible chiropractor or accupuncture documented in this encounter Progress Notes Gonzalo Merchant MD - 07/18/2020 10:40 AM PDTFormatting of this note might be different fro m the original. Gonzalo Merchant MD [address] [place] [address], [address] [place], [place] [id number] FAX: PHYSICAL MEDICINE AND REHABILITATION H&P CHIEF COMPLAINT: Chief Complaint Patient presents with Follow-up Discuss options Back Pain HISTORY OF PRESENT ILLNESS: Renny Saravia is a 20 y.o. female being seen today in follow-up for complaints of t horacic back pain. Renny Saravia was last seen on 06/21/2020. Previously it was re commended that she work on posture stabilization. She reports that the treatment was effect gerber improving posture but not pain. She feels that the thoracic back pain is "ruining her life," it is affecting her every day living. The referrals for trigger points and Botox were denied by insurance. She has previously done physical therapy and trigger points. Renny Saravia's medications, allergies, past medical, surgical, [...] by mouth Daily .) 90 tablet 1 Cholecalciferol (VITAMIN D3 GUMMIES PO) Take by mouth. cyclobenzaprine (FLEXERIL) 10 mg tablet Take 1 tablet by mouth 3 times daily as needed for Muscle spasms. 21 tablet 0 diphenhydrAMINE (BENADRYL) 25 mg tablet Take 25 mg by mouth every 6 hours as needed for Itching. EPINEPHrine auto-injector 0.3 mg/0.3 mL injection Inject 0.3 mLs into the muscle as nee ded for Anaphylaxis. 2 each 1 escitalopram (LEXAPRO) 10 mg tablet Take 1 tablet by mouth Daily. 30 tablet 1 FLOVENT HFA 44 MCG/ACT inhaler Inhale 2 puffs into the lungs Daily. 3 Inhaler 3 FLUoxetine (PROZAC) 20 mg capsule Take 1 capsule by mouth Daily. 30 capsule 1 fluticasone (FLONASE) 50 mcg/nasal spray 2 sprays by Nasal route Daily. 16 g 12 melatonin 5 mg tablet Take 5 mg by mouth nightly as needed for Insomnia. norgestimate-ethinyl estradiol (ORTHO TRI-CYCLEN LO) 0.18/0.215/0.25 mg-25 mcg TABS No current facility-administered medications for this visit. ALLERGIES: Allergies Allergen Reactions Rey Flavor Hives Effexor [Venlafaxine] Anaphylaxis Nystatin Swelling Omeprazole Shortness Of Breath Penicillins Hives and Nausea And Vomiting Sulfa Antibiotics Shortness Of Breath Aspirin Other (See Comments) fever Fish Oil Unknown Whooping cough injection/ extreme reaction Macrobid [Nitrofuran Derivatives] Nausea And Vomiting Penicillins Unknown REVIEW OF SYSTEMS: ROS PHYSICAL EXAMINATION: Body mass index is 18.66 kg/m. Vitals: 07/18/20 1046 BP: 101/66 Pulse: 89 Resp: 16 Temp: 36 C (96.8 F) PainSc: 3 PainLoc: Back GENERAL: The patient is well developed and well nourished. She does not appear uncomfortab le when seated. HEENT: Normocephalic and atraumatic. Normal sclerae without icterus. NECK (ANTERIOR): There is no apparent cervical lymphadenopathy or thyromegaly. PULMONARY: The patient is in no acute respiratory distress with unlabored respirations. CARDIOVASCULAR: Regular rate and rhythm. There is not lower extremity edema. ABDOMEN: Non-distended. SKIN: Limited skin exam shows no significant rashes or lesions. NEUROLOGIC: The patient is awake, alert, and oriented. She follows simple and complex commands. Her speech is fluent. She comprehends speech well. She has no apparent deficits with short or rn long term care memory. The cranial nerves appear grossly intact. MUSCULOSKELETAL : Trigger point/dystonic band to right spinal erector muscle DATABASE: No new imaging to discuss at today's appointment. ASSESSMENT: 1. Chronic right-sided thoracic back pain 2. Trigger point of thoracic region PLAN: 1. Renny Saravia returns to the clinic today to discuss treatment options for her t horacic back pain. 2. Today we discussed that further treatment options include medication management. I advis ed her that medication will not ever "cure" the problem or make her feel normal, the goal of medication management is to make the pain manageable. Renny Saravia has previously taken Flexeril, she states that it helped her with her pain although it is contraindicated with her Wellbutrin medication. We discussed other pote ntial muscle relaxer medications. We discussed that the certain muscle relaxers may cause li maliha issues. We discussed the medication Baclofen. We discussed that initially the medication can cause sedation, we also discussed that the medication is slowly tapered up. Baclofen was prescribed today. 3. Today we advised that Renny Saravia should continue to do the physical therapy e xercises indefinitely. We discussed that the benefits of physical therapy are not achieved after days or weeks, ra ther they are achieved over months to years. We discussed that an individual should plan to continue physical therapy exercises independently at home indefinitely. We discussed that e tim when an individual is feeling better they should still continue exercises. 4. Today we discussed other possible treatment options. Including, but not limited to; Chir opractic care or acupuncture. I advised her that her insurance may not cover the cost of the se treatments but that it is possible for her to seek the treatments with out of pocket pay and no referral. 5. Today we discussed the risks of Botox injection including, but are not limited to: bruis ing, bleeding, infection, damage to adjacent structures, disability and . There is risk of developing upper respiratory symptoms (e.g. Rhinorrhea). There is risk of focal weaknes s and/or generalized weakness. There is risk of developing immunity to botulinum toxin with repeat injections. There is risk of respiratory failure, need for hospitalization and bein g placed on a ventilator. There is risk of dysphagia, aspiration and the possible need for alternative mechanism of feeding (e.g. Feeding tube). There is risk of developing an asymme tric facial features. There is risk of disconjugate gaze and double vision. There is risk of dysphonia. We discussed that the effects of botulinum toxin take several days to take effect (approxim ately one week). The effects of botulinum toxin usually reach peak effect at one month after injection. Renny Saravia was advised effects of botulinum toxin are semi-permanen t, meaning that once botulinum toxin is injected there is no way to reverse the effects of t he botulinum toxin. The effects of botulinum toxin may last from three to six months, (four months on average). 6. Today we offered Renny Saravia a referral to a different clinic so that she coul d obtain a second opinion. A referral to [facility] pain management was placed today. 5. Renny Saravia will be scheduled to return to the clinic in 2 months to review. 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 She has had some benefit from trigger point injections, but symptoms return. Her insura nce denied treatment for focal dystonia. She has had physical therapy and continues routine home exercise program. She reports that current symptoms effect her function and quality o f life. She has had some benefit for flexeril, but cannot use on routine basis. She will d iscontinue flexeril. She will start Baclofen at low dose and taper up. We reviewed risks a nd potential benefits of longer term muscle relaxant use. She will have referral to pain cl in for second opinion. We reviewed treatment options of chiropractics and acupuncture. We we may consider repeat trigger point injections in the future. I spent 30 minutes in visit with Renny Saravia today with the majority of time spen t counselling the patient on her diagnosis, options for her care, and coordinating her care. I, Gonzalo Merchant MD personally performed the services described in this documentation, as scribed by in my presence, Chetna Swift RN and are both accurate and complete. Gonzalo Merchant MD - 07/18/2020 documented in this en counter Plan of Treatment +--------+ + + + + | Date | Type | Specialty | Care Team | Description | +--------+ + + + + | 09/07/ | Office | Cardiology | McdonaldRosalia schwartzcy | | | 2019 | Visit | | GLEN Morales [address] | | | | | | [address] [place] | | | | | | [place] [address] | | | | | | [phone] | | | | | | | | +--------+ + + + + | 09/22/ | Office | Physical Medicine | Gonzalo Merchant, | | | 2019 | Visit | and Rehabilitation | [address] | | | | | | [place] | | | | | | [address] | | | | | | | | +--------+ + + + + | 09/29/ | Virtual | Pain Medicine | Peggy Arreola | | | 2019 | Office | | [address] | | | | Visit | | [address] | | | | | | [place], | | | | | | [place] [address] | | | | | | [phone] | | | | | | | | +--------+ + + + + | 01/24/ | Office | Family Medicine | JessicasusnaKurt, | | | 2020 | Visit | | DO [address] | | | | | | [place] | | | | | | [address] | | | | | | | | +--------+ + + + + + + +--------+ + + | Name | Type | Priori | Associated Diagnoses | Order Schedule | | | | ty | | | + + +--------+ + + | [facility] | Outpatient | Routin | Chronic | Ordered: 07/18/2020 | | Management - AMB | Referral | e | right-sided thoracic | | | Referral | | | back pain Trigger | | | | | | point of thoracic | | | | | | region | | + + +--------+ + + documented as of this encounter Visit Diagnoses + + | Diagnosis | + + | Chronic right-sided thoracic back pain - Primary | + + | Trigger point of thoracic region Backache, unspecified | + + documented in this encounter
--- OUTSIDE RECORDS SUMMARY | ~2020-09-05 | XMS | Encounter Summary ---
Demographics + + + | Address | [address] | | | [place] [address] | + + + | Home Phone [...] Author + + + | Author | [facility] | | | and [place] | + + + | Organization | [facility] | | [...] | | | | | [place] [address] | | + + + + + | Concha Paulino | ECON | [address] | | | | | [place] [address] | | + + + + + Care Team Providers + +------+ + | Care Bus Driver/Monitor Name | Role | Phone | + +------+ + | Leonid Osorio MD | PCP | | + +------+ + Reason for Visit + +--------+ + | Reason | Onset | Comments | | | Date | | + +--------+ + | Medication Refill | 11/28/ | | | | 2018 | | + +--------+ + Encounter Details +--------+--------+ + + + | Date | Type | Department | Care Team | Description | +--------+--------+ + + + | 11/28/ | Refill | [facility] | Dede, | Medication Refill | | 2018 | | CARE [address] | Michael Soto MD | | | | | [place] | [address] | | | | | [address] | [place] | | | | | [phone] | [address] | | | | | [...] this encounter Miscellaneous Notes Telephone Encounter - Serjio Clark MD - 11/28/2018 4:24 PM PSTNotify Renny, Refill of albuterol was provided. She needs to come in if she's having acute flare of her asthma. Otherwise, she needs to establish care with a new primary care provider for future refills and routine follow-up if not seeing Dr. Osorio. ERS elephone Jenn Reyes Cert MA - 11/28/2018 10:36 AM PSTFormatting of this note might be di fferent from the original. SENT REFILL REQUEST FOR: Medication albuterol 2.5 mg/3 mL nebulizer solution [250] albuterol 2.5 mg/3 mL nebulizer solution [[id number]] Order Details Dose: 2.5 mg Route: Nebulization Frequency: EVERY 4 HOURS PRN for Wheezing, Shortness of Br eath Dispense Quantity: 60 vial Refills: 0 Fills remaining: -- Sig: Take 3 mLs by nebulization every 4 hours as needed for Wheezing or Shortness of Breath . Written Date: 07/02/18 Expiration Date: 07/02/19 Start Date: 07/02/[address] Schwartzkopf 10:3 7 AM PSTdocumented in this encounter Plan of Treatment [...] | | | | | [place] [address] | | | | | | [phone] | | | | | | | | +--------+ + + + + | 09/22/ | Office | Physical Medicine | Gonzalo Merchant, | | | 2019 | Visit | and Rehabilitation | MD [address]ane [address] | | | | | | [place] | | | | | | [address] | | | | | | | | +--------+ + + + + | 09/29/ | Virtual | Pain Medicine | Peggy Arreola | | | 2019 | Office | | [address] | | | | Visit | | [address] | | | | | | [place], | | | | | | [place] [address] | | | | | | [phone] | | | | | | | | +--------+ + + + + | 01/24/ | Office | Family Medicine | Kurt Campbell, | | | 2020 | Visit | | [address] | | | | | | [place] | | | | | | [address] | | | | | | | | +--------+ + + + + documented as of this encounter Visit Diagnoses + + | Diagnosis | + + | Mild persistent asthma without complication Unspecified asthma | + + documented in this encounter"
--- OUTSIDE RECORDS SUMMARY | ~2020-09-05 | XMS | Encounter Summary ---
Demographics + + + | Address | [address] | | | [place] [address] | + + + | Home Phone [...] Author + + + | Author | [facility] | | | and [place] | + + + | Organization | [facility] | | | [...] | | | | | [place] [address] | | + + + + + | Concha Paulino | ECON | [address] | | | | | [place] [address] | | + + + + + Care Team Providers + +------+ + | [facility] [employer] Dean Name | Role | Phone | + +------+ + | Kurt Campbell DO | PCP | | + +------+ + Reason for Visit + + + | Reason | Comments | + + + | Fever | RM 6 fever won't break on its own | + + + | Cough | | + + + | Shortness of Breath | feels like she's struggling to breath | + + + Encounter Details +--------+---------+ + + + | Date | Type | Department | Care Team | Description | +--------+---------+ + + + | 01/28/ | Office | [facility] | Serjio Clark | Acute bronchitis, | | 2020 | Visit | [address] | MD Leela [address] | unspecified organism | | | | [place] | [place] | (Primary Dx); Mild | | | | [phone] | [id number] | persistent asthma | | | | [phone] | | without complication | +--------+---------+ + + + Social History + +-------+ +--------+ + | Tobacco Use | Types | Packs/Day | Years | Date | | | | | Used | | + +-------+ +--------+ + | Former Smoker | | 0.5 | 6 | Quit: 2016 | + +-------+ +--------+ + + +---+---+---+ [...] + + + | Blood Pressure | 120/85 | 01/29/2020 7:33 PM | | | | | PST | | + + + + + | Pulse | 108 | 01/29/2020 7:33 PM | | | | | PST | | + + + + + | Temperature | 37.6 C (99.6 F) | 01/29/2020 7:33 PM | | | | | PST | | + + + + + | Respiratory Rate | 14 | 01/29/2020 7:33 PM | | | | | PST | | + + + + + | Oxygen Saturation | 99% | 01/29/2020 7:33 PM | | | | | PST | | + + + + + | Inhaled Oxygen | - | - | | | Concentration | | | | + + + + + | Weight | 49 kg (108 lb 0.4 | 01/29/2020 7:33 PM | | | | oz) | PST | | + + + + + | Height | 157.5 cm (5' 2") | 01/29/2020 7:33 PM | | | | | PST | | + + + + + | Body Mass Index | 19.76 | 01/29/2020 7:33 PM | | | [...] Instructions Patient Instructions Serjio Clark MD - 01/29/2020 7:30 PM PSTTake doxycycline as prescribed until gone. Continue albuterol and Flovent inhalers as before. Drink plenty of fluids and get plenty of rest. Use rqpd-abi-rxwqwnu Tylenol or Advil as needed for fever, [...] d/or Cepastat throat spray as needed. Take hfpi-nec-mwvwvac Mucinex or equivalent product as needed for thick mucous. Use Robitussin-DM as needed for cough. Continue to isolate using a mask when out and about and using handwashing to protect others from your illness. Contact Dr. Campbell or [facility] if new or progressive associated symptoms develop. Return or follow-up with your primary doctor if not better in 1 week, sooner if experiencin g difficulty swallowing liquids, progressive productive cough, associated chest pain, shortn ess of breath, progressive wheezing, fever, vomiting or progessive sinus pressure/headache. Viral or Bacterial Bronchitis with Wheezing(Adult) Bronchitis is an infection of the air passages. It often occurs during a cold and is usuall y caused by a virus. Symptoms include cough with mucus (phlegm) and low-grade fever. This il lness is contagious during the first few days and is spread through the air by coughing and sneezing, or by direct contact (touching the sick person and then touching your own eyes, no se, or mouth). If there is a lot of inflammation, air flow is restricted. The air passages may also go int o spasm, especially if you have asthma. This causes wheezing and difficulty breathing even i n people who do not have asthma. Bronchitis usually lasts 7 to 14 days. The wheezing should improve with treatment during e first week. An inhaler is often prescribed to relax the air passages and stop wheezing. An tibiotics will be prescribed if your doctor thinks there is also a secondary bacterial infec tion. Home care If symptoms are severe, rest at home for the first 2 to 3 days. When you go back to your usual activities, don't let yourself get too tired. Dont s'moke. Also avoid being exposed to secondhand smoke. You may use cmoe-buh-fpaciba medicine to control fever or pain, unless another medicine was prescribed. Note: If you have chronic liver or kidney disease or have ever had a stomach ulcer or gastrointestinal bleeding, talk with your healthcare provider before using these m edicines. Also talk to your provider if you are taking medicine to prevent blood clots.) Asp irin should never be given to anyone younger than 18 years of age who is ill with a viral in fection or fever. It may cause severe liver or brain damage. Your appetite may be poor, so a light diet is fine. Stay well hydrated by drinking 6 to 8 glasses of fluids per day (such as water, soft drinks, sports drinks, juices, tea, or soup ). Extra fluids will help loosen secretions in the nose and lungs. Zkfg-rdq-vowabhu cough, cold, and sore-throat medicines will not shorten the length of t he illness, but they may be helpful to reduce symptoms. (Note: Don't use decongestants if yo u have high blood pressure.) If you were given an inhaler, use it exactly as directed. If you need to use it more oft en than prescribed, your condition may be worsening. If this happens, contact your healthcar e provider. If prescribed, finish all antibiotic medicine, even if you are feeling better after only a few days. Follow-up care Follow up with your healthcare provider, or as advised. If you had an X-ray or ECG (electro cardiogram), a specialist will review it. You will be notified of any new findings that may affect your care. If you are age 65 or older, or if you have a chronic lung disease or condition that affects your immune system, or you smoke, ask your healthcare provider about getting a pneumococcal vaccine and a yearly flu shot (influenza vaccine). When to seek medical advice Call your healthcare provider right away if any of these occur: Fever of 100.4F (38C) or higher, or as directed by your healthcare provider Coughing up increasing amounts of colored sputum Weakness, drowsiness, headache, facial pain, ear pain, or a stiff neck Call 911 Call 911 if any of these occur. Coughing up blood Worsening weakness, drowsiness, headache, or stiff neck Increased wheezing not helped with medication, shortness of breath, or pain with breathi ng Date Last Reviewed: 04/25/201819992859-5688 [employer]. [address] [place] [address]. All righ ts reserved. This information is not intended as a substitute for professional medical care. Always follow your healthcare professional's instructions. documented in this encounter Progress Notes Serjio Clark MD - 01/29/2020 7:30 PM PSTFormatting of this note might be differen t from the original. Chief Complaint: Fever (RM 6 fever won't break on its own); Cough; and Shortness of Breath (feels like she's struggling to breath) HPI: Renny is a 20 y.o. female who comes in with SO describing cough for 1 week. Started with fe maliha. She was seen by her PCP, Dr. Campbell, 2 days ago and had negative respiratory viral mendoza el screen. Flu screen was not recorded. She was told to isolate. No indication for Covid- 19 testing was identified. Despite this, she was seen in physiatry yesterday. She had tele phone follow-up with the public health social worker, Fany Bello, yesterday. No change was described. Now, resents with complaint of shortness of breath when exercising. She is experiencing cl ear nasal congestion, little post-nasal drainage, frontal headache, no sinus pain/pressure, no ear ache, burning eye irritation, mild sore throat and dry cough. Has persistent measured fever, today 100.5 max, no sweats or chills. Mild body aches. Mild nausea without vomiting. No abdominal pain or diarrhea. Feels shortness of breath with exercise, mild wheezing using albuterol with improvement, no pleuritic chest burning/pain. Non smoker and has hx of asthm a using Flovent and albuterol routinely. Never hospitalized for the same. Has been taking a lbuterol inhaler and Dayquil with improvement in symptoms. No exposure to travelers returnin g from countries of interest containing Covid-19 outbreaks. No personal travel in last su[place]. No flu exposure. Patient's medications, allergies, past medical, surgical, social and family histories were reviewed and updated as appropriate. ROS: As found in the HPI. Objective: BP 120/85 | Pulse 108 | Temp 37.6 C (99.6 F) (Temporal) | Resp 14 | Ht 1.575 m (5' 2") | Wt 49 kg (108 lb 0.4 oz) | LMP 01/03/2020 | SpO2 99% | BMI 19.76 kg/m General Appearance: Alert, cooperative, well-appearing, thin, young female in no distress, appears stated age. Non toxic appearance. Breathing comfortably and speaking in full senten storm. No cough noted during the visit. Head: Normocephalic, no facial sinus tenderness. No mastoid tenderness. Eyes: PERRL, conjunctiva clear without exudates. Ears: Unremarkable TM's with clear external ear canals and gross normal hearing. Nose: Mildly congested with clear exudates. Throat: Erythematous, non-edematous without exudates. Moist MM. Neck: Supple, symmetric, mild anterior cervical adenopathy. Lungs: Completely clear to auscultation bilaterally, good air movement without rhonchi or w heezes, respirations unlabored. Cardiac: Quiet precordium, regular rhythm, no murmur or chloe. No ankle edema. Abdomen: Flat with normally active bowel sounds, soft, non tender. No organomegaly. Skin: Skin color, texture, turgor normal, no rash. Extremities are pink, warm and dry. 2 view chest x-ray, today: IMPRESSION: No acute intrathoracic abnormality identified. Acute respiratory viral panel sent 2 days ago was negative. Results for orders placed or performed in visit on 01/29/20 Influenza A and B RNA, NAAT Result Value Ref Range Influenza A PCR Negative Negative, Test not performed Influenza B PCR Negative Negative, Test not performed Assessment: 1. Acute bronchitis, unspecified organism Influenza A and B RNA, NAAT XR Chest PA and Lateral doxycycline (VIBRAMYCIN) 100 mg capsule 2. Mild persistent asthma without complication albuterol (PROAIR HFA) 90 mcg/puff inhaler 1 week history of likely viral URI with cough, rule out atypical infection with mild pharyn gitis and bronchitis. Mild associated asthma symptoms controlled with albuterol and Flovent. No indication for Covid-19 testing based on current criteria from [facility]. Will cover atypica ls with doxycycline. She is given the following instructions, prescriptions and a note for work. Continued follow-up through [facility] is anticipated. She was encouraged to continue isolating until symptoms and fever resolve. Plan: Take doxycycline as prescribed until gone. Continue albuterol and Flovent inhalers as before. Drink plenty of fluids and get plenty of rest. Use ackg-fai-spmkgau Tylenol or Advil as needed for fever, [...] d/or Cepastat throat spray as needed. Take mnwm-feg-yftcmhj Mucinex or equivalent product as needed for thick mucous. Use Robitussin-DM as needed for cough. Continue to isolate using a mask when out and about and using handwashing to protect others from your illness. Contact Dr. Campbell or [facility] if new or progressive associated symptoms develop. Return or follow-up with your primary doctor if not better in 1 week, sooner if experiencin g difficulty swallowing liquids, progressive productive cough, associated chest pain, shortn ess of breath, progressive wheezing, fever, vomiting or progessive sinus pressure/headache. Serjio Clark MD documented in th is encounter Plan of [...] | | | | | [place] [address] | | | | | | [phone] | | | | | | | | +--------+ + + + + | 09/22/ | Office | Physical Medicine | Gonzalo Merchant, | | 2019 | Visit | and Rehabilitation | [address] | | | | | | [place] | | | | | | [id number] | | | | | | | | +--------+ + + + + | 09/29/ | Virtual | Pain Medicine | Peggy Arreola | | | 2019 | Office | | [address] | | | | Visit | | [place] [address] | | | | | | [place], | | | | | | [place] [address] | | | | | | [phone] | | | | | | | | +--------+ + + + + | 01/24/ | Office | Family Medicine | Kurt Campbell, | | | 2020 | Visit | | DO [address] | | | | | | [place] | | | | | | [id number] | | | | | | | | +--------+ + + + + documented as of this encounter Procedures + +--------+ + + + | Procedure Name | Priori | Date/Time | Associated Diagnosis | Comments | | | ty | | | | + +--------+ + + + | XR CHEST PA AND | STAT | 01/29/2020 | Acute bronchitis, | Results for this | | LATERAL | | 8:09 PM | unspecified organism | procedure are in the | | | | PST | | results section. | + +--------+ + + + | INFLUENZA A AND B | STAT | 01/29/2020 | Acute bronchitis, | Results for this | | RNA, NAAT | | 8:01 PM | unspecified organism | procedure are in the | | | | PST | | results section. | + +--------+ + + + documented in this encounter Results XR Chest PA and Lateral (01/29/2020 8:09 PM PST) + + | Specimen | + + | | + + + + + | Impressions | Performed At | + + + | No acute intrathoracic abnormality identified. Dictated and | [facility] | | Signed by: Chirag Xavier MD Electronically signed: 01/29/2020 8:30 | | | PM | | + + + + + + | Narrative | Performed At | + + + | XR CHEST PA AND LATERAL 01/29/2020 8:09 PM HISTORY: cough for 1 | [facility] | | week with SOB. COMPARISON: 03/22/2080 Findings: The bilateral | | | lungs are clear with no evidence for pleural effusion or | | | pneumothorax. Heart size is within normal limits. Pulmonary | | | vasculature is within normal limits. Aorta is normal. Mediastinum is | | | unremarkable. No acute osseous or soft tissue abnormality identified. | | | Dextroconvex thoracic spondylosis and levoconvex scoliosis of the | | | lumbar spine. | | + + + + + | Procedure Note | + + | Shaun, Rad Results In - 01/29/2020 8:33 PM PST XR CHEST PA AND LATERAL 01/29/2020 8:09 | | PMHISTORY: cough for 1 week with SOB.COMPARISON: 03/22/2080Findings:The bilateral lungs | | are clear with no evidence for pleural effusion orpneumothorax. Heart size is within | | normal limits. Pulmonary vasculature iswithin normal limits. Aorta is normal. | | Mediastinum is unremarkable. No acuteosseous or soft tissue abnormality identified. | | Dextroconvex thoracic spondylosisand levoconvex scoliosis of the lumbar | | spine.IMPRESSION: No acute intrathoracic abnormality identified.Dictated and Signed by: | | Chirag Xavier MD Electronically signed: 01/29/2020 8:30 PM | |pneumothorax. Heart size is within normal limits. Pulmonary vasculature is | |within normal limits. Aorta is normal. Mediastinum is unremarkable. No acute | |osseous or soft tissue abnormality identified. Dextroconvex thoracic spondylosis | |and levoconvex scoliosis of the lumbar spine. | | | |IMPRESSION: | |No acute intrathoracic abnormality identified. | | | |Dictated and Signed by: Chirag Xavier MD | | Electronically signed: 01/29/2020 8:30 PM | + + + +---------+ + + | Performing | Address | City/State/Zipcode | Phone Number | | Organization | | | | + +---------+ + + | [facility] | | | | + +---------+ + + Influenza A and B RNA, NAAT (01/29/2020 8:01 PM PST) + + + + + + | Component | Value | Ref Range | Performed | Pathologist | | | | | At | Signature | + + + + + + | Influenza A | Negative | Negative, Test | [facility] | | | PCR | | not performed | [facility] | [facility] | | + + + + + + | Influenza B | Negative | Negative, Test | [facility] | | | PCR | | not performed | [facility] | [facility] | | + + + + + + + + | Specimen | + + | Tissue - Specimen | | from nasal sinus | | (specimen) | + + + + + + + | Performing | Address | City/State/Zipcode | Phone Number | | Organization | | | | + + + + + | [facility] | [address] | [place] | [phone] | | [facility] | | [address] | | | [facility] | | | | + + + + + documented in this encounter Visit Diagnoses + + | Diagnosis | + + | Acute bronchitis, unspecified organism - Primary | + + | Mild persistent asthma without complication Unspecified asthma | + + documented in this encounter
--- OUTSIDE RECORDS SUMMARY | ~2020-09-05 | XMS | Encounter Summary ---
Demographics + + + | Address | [address] | | | [place] [address] | + + + | Home Phone [...] Author + + + | Author | [facility] | | | and [place] | + + + | Organization | [facility] | | [...] | | | | | [place] [address] | | + + + + + | Concha Zeeshanletty | ECON | [address] | | | | | [place] [address] | | + + + + + Care Team Providers + +------+ + | Care Profile Saw Operator Name | Role | Phone | [...] | Physical | Diagnoses | Merchant, | [facility] | | | Services | Medicine and | Trigger | Gonzalo Weir MD | Physiatry | | | Required | Rehabilitatio | point of | [address] | | | | n | thoracic | [address] | [address] | | | | | region | [place], | [place], | | | | | Procedures | [place] [address] | [place] [address] | | | | | 3+ Trigger | Phone: | Phone: | | | | | point | [phone] | [phone] | | | | | injections | Fax: | Fax: | | | | | completed in | [phone] | [phone] | | | | | office | | | | | | | today | | | | | | | 06/21/20 - | | | | | | | self pay | | | +--------+ + + + [...] | | Services | Medicine and | Focal | Gonzalo Weir MD | Raul Weir MD [address] | | | Required | Rehabilitatio | dystonia | [address] | | | | n | Chronic | [address] | [place], | | | | | right-sided | [place], | [place] [address] | | | | | thoracic | [place] [address] | Phone: | | | | | back pain | Phone: | [phone] | | | | | Procedures | [phone] | Fax: | | | | | [place] | Fax: | [phone] | | | | | INJECTION,ON | [phone] | | | | | | ABOTULINUMTO | | | | | | | XINA, 1 | | | | | | | UNITS [place] | | | | | | | NEEDLE EMG | | | | | | | GUIDANCE FOR | | | | | | | | | | | | | | CHEMODENERVA | | | | | | | TION CA | | | | | | | CHEMODENERVA | | | | | | | TION OF | | | | | | | TRUNK MUSCLE | | | | | | | 1-5 MUSCLES | | | | | | | DOS | | | | | | | 07/18/20 | | | | | | | Botox | | | | | | | Request 100 | | | | | | | units Botox | | | | | | | CPT - 75252 | | | | | | | CPT - | | | | | | | [address] | | | +--------+ + + + + + Reason for Visit + + + | Reason | Comments | + + + | Thoracic Problem | thoracic back pain | + + + Evaluate & Treat [...] midline | [address] | | | | n | thoracic | [address] | [place], | | | | | back pain | [place] | [place] [address] | | | | | Scoliosis of | [address] | Phone: | | | | | thoracic | Phone: | [phone] | | | | | spine, | [phone] | Fax: | | | | | unspecified | Fax: | [phone] | | | | | scoliosis | [phone] | | | | | | type | | | +--------+ + + + + + Encounter Details +--------+---------+ + + + | Date | Type | Department | Care Team | Description | +--------+---------+ + + + | 06/21/ | Office | [facility] | Gonzalo Merchant, | Trigger point of | | 2020 | Visit | PHYSIATRY [address] | MD [address] | thoracic region | | | | [address] | [place] | (Primary Dx); Focal | | | | [place] | [address] | dystonia; Chronic | | | | [address] | | right-sided thoracic | | | | [phone] | | back pain | +--------+---------+ + + + Social History [...] + + + | Blood Pressure | 105/71 | 06/21/2020 12:03 PM | | | | | PDT | | + + + + + | Pulse | 91 | 06/21/2020 12:03 PM | | | | | PDT [...] Weight | 48.1 kg (106 lb) | 06/21/2020 12:03 PM | | | | | PDT | | + + + + + | Height | 157.5 cm (5' 2") | 06/21/2020 12:03 PM | | | | | PDT | | + + + + + | Body Mass Index | 19.39 | 06/21/2020 12:03 PM | | | | | PDT [...] encounter Patient Instructions Patient Instructions Janee Rivera, Solid Waste Analyst - 06/21/2020 11:30 AM PDTIf you develop any signs of infection (e.g. Fever, chills, redness, warmth, drainage) seek emergen t medical attention and inform the clinic. Feel free to use ice, massage, and stretch after your injections today. Please avoid direct heat, over the injections site, for 3 days foll owing injection. Return to clinic as scheduled for botox injections. documented in this encounter Progress Notes Gonzalo Merchant MD - 06/21/2020 11:30 AM PDTFormatting of this note might be different fro m the original. Diagnosis: 1. Trigger point of thoracic region 2. Focal dystonia Procedure: Right thoracic paraspinal muscle trigger point injections Procedure Detail: [...] was reviewed. Once informed consent was obtained one 5 ml syringe was prepared. The syringe contained 1 ml of DepoMedrol 20 mg/ml, 2 ml of lidocaine 1% and 2 ml of 0.5% ropivacaine. The syringe h ad a total medication volume of 5 ml. The trigger points were identified anatomically, with palpation, and reproduction of pain. The skin over each of the trigger points was cleaned with an alcohol swab prior to injectio n. A 25 gauge 1-1/2 inch needle was used for all trigger point injections. The medication was injected evenly between 4 separate trigger points. At each trigger point, once medicat ion was injected, the needle was redirected in a ray-like fashion radiating out from the guy tral insertion point of the needle. The muscles injected today include: right thoracic ere ctor spinae muscles. Renny Saravia was discharged from the clinic with the instructions; avoid the use o f heat for the next 3 days. The use of ice and massage is ok. The patient was instructed t hat should they have any alarming signs or symptoms that they should seek emergent medical c are as well as inform me in the clinic. Renny Saravia truly has focal dystonia in this muscle. She would benefit from Boto x Chemo-denervation of the right erector spinae muscle under EMG guidance. Anticipate using 100 units of Botox or less. We will request insurance approval for this procedure. Please see separate progress note from today. Thank you for allowing me to be involved in the care of your patient. If you have any ques tions regarding the care of your patient please don't hesitate to call. Gonzalo Merchant MD (Jr.) arsh, Gonzalo Weir MD - 06/21/2020 11:30 AM PDT Gonzalo Merchant MD [address] [facility] [place], [place] [id number] FAX: PHYSICAL MEDICINE AND REHABILITATION H&P CHIEF COMPLAINT: Chief Complaint Patient presents with Thoracic Problem thoracic back pain HISTORY OF PRESENT ILLNESS: Renny Saravia is a 20 y.o. female being seen today in follow-up for complaints of t horacic back pain. Renny Saravia was last seen on 02/25/2020 for trigger point injec tions. She reports that the treatment was effective. Renny Saravia reports signific ant improvement in pain following trigger point injections. Renny Saravia reports re turn in pain a couple of weeks ago overall but had a return in pain in one specific spot. S he reports that her pain gets bad enough at the end of her work day, that it is effecting he r ability to work. The pain is effecting her quality of life. Overall Renny Saravia reports that her symptoms are worsening. Renny Howard n rates the pain as mild-severe. Her symptoms worsen with sitting,standing and laying down . Renny Saravia's medications, allergies, past medical, surgical, [...] Take 1 tablet by mouth Daily. (Patient rahul simpson differently: Take 150 mg by mouth Daily [...] joint arthritis, no rheumatoid arthritis. PHYSICAL EXAMINATION: Blood pressure 105/71, pulse 91, height 1.575 m (5' 2"), weight 48.1 kg (106 lb), not curre ntly . Body mass index is 19.39 kg/m. GENERAL: The patient is well developed and [...] has no apparent deficits with short or skilled nursing memory. The cranial nerves appear grossly intact. MUSCULOSKELETAL : Dystonia in the right Thoracic erector spinae muscle DATABASE: No new imaging is available for review. ASSESSMENT: 1. Trigger point of thoracic region 2. Focal dystonia 3. Chronic right-sided thoracic back pain PLAN: 1. Renny Saravia presents to clinic today to review thoracic trigger point injectio ns. Overall Renny Saravia had excellentresponse to trigger point injections comple kira on 02/25/2020. She denies side effects to injections. The benefits from this treatment ar e time limited. Reviewed that the ultimate treatment option is posture stabilization. Renny Saravia was encouraged to continue with at home exercises. In hopes of reducing severity of pain order for botox injections for the treatment of focal dystonia was placed today. Renny Saravia has persisting pain. She has participated in physical therapy and trigger point injections in the past. 40 minute appointment for Botox chemo denervation of thoracic muscles under emg guidance fo r the treatment of focal dystonia. Request 100 units Botox. 2. Please see separate procedure note for trigger points completed in office today. Stephsarai ashley Saravia insurance does not cover injections. Self pay waiver was comple kira. Trigger point injections have been helpful and will be repeated today. On exam she has foc al dystonia. Gold standard treatment for focal dystonia is Botox chemo-denervation. Her sy mptoms are effecting her function and quality of life. She has failed to have symptom resol ution despite multiple conservative treatments including NSAIDs, PT, time, prior trigger poi nt injections, etc. She will return to the clinic for Botox chemo-denervation of right erec tor spinae muscle under EMG guidance. Anticipate using 100 units or less of Botox for the p rocedure. I spent 20 minutes in visit with Renny Saravia today with the majority of time spen t counseling the patient on her diagnosis, options for her care, and coordinating her care. I, Gonzalo Merchant MD personally performed the services described in this documentation, as scribed by in my presence, STEFF Wisdom and are both accurate and complete. Gonzalo Merchant MD - 06/21/2020 documented in this en counter Plan of [...] | | | | | | [place] [address] | | | | | | [phone] | | | | | | | | +--------+ + + + + | 09/22/ | Office | Physical Medicine | Gonzalo Merchant, | | | 2019 | Visit | and Rehabilitation | [address] | | | | | | [place] | | | | | | [address] | | | | | | | | +--------+ + + + + | 09/29/ | Virtual | Pain Medicine | Peggy Arreola | | | 2019 | Office | | [address] | | | | Visit | | [address] | | | | | | [place], | | | | | | [place] [address] | | | | | | [phone] | | | | | | | | +--------+ + + + + | 01/24/ | Office | Family Medicine | Kurt Campblel, | | | 2020 | Visit | | [address] | | | | | | [place] | | | | | | [address] | | | | | | | | +--------+ + + + + + + +--------+ + + | Name | Type | Priori | Associated Diagnoses | Order Schedule | | | | ty | | | + + +--------+ + + | * [facility] | Outpatient | Routin | Focal dystonia | Ordered: 06/21/2020 | | Physiatry - AMB | Referral | e | Chronic right-sided | | | Referral | | | thoracic back pain | | + + +--------+ + + | * [facility] [place] | Outpatient | Routin | Trigger point of | Ordered: 06/21/2020 | | Physiatry - AMB | Referral | e | thoracic region | | | Referral | | | | | + + +--------+ + + documented as of this encounter Visit Diagnoses + + | Diagnosis | + + | Trigger point of thoracic region - Primary Backache, unspecified | + + | 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 | + + | Chronic right-sided thoracic back pain | + + documented in this encounter Administered Medications + + + +-------+------+ + | Medication Order | MAR | Action | Dose | Rate | Site | | | Action | Date | | | | + + + +-------+------+ + | lidocaine 1% injection 2 mL 2 | Given by | 06/21/20 | 2 mLs | | Other | | mL, Intramuscular, ONCE, Tue | Other | 20 1:52 | | | (Comment | | 06/21/20 at 1415, For 1 dose | | PM PDT | | | ) | + + + +-------+------+ + +---+---+ | | | +---+---+ + + + +-------+---+ + | methylPREDNISolone acetate | Given by | 06/21/20 | 20 mg | | Other | | (DEPO-MEDROL) 20 mg/mL injection | Other | 20 1:54 | | | (Comment | | 20 mg 20 mg, Intramuscular, | | PM PDT | | | ) | | ONCE, 06/21/20 at 1415, For 1 | | | | | | | dose, Not for IV use., | | | | | | + + + +-------+---+ + +---+---+ | | | +---+---+ + + + +-------+---+ + | ropivacaine (NAROPIN) 5 mg/mL | Given by | 06/21/20 | 2 mLs | | Other | | (0.5%) injection 2 mL 2 mL, | Other | 20 1:53 | | | (Comment | | Infiltration, ONCE, Cel[place] 06/21/20 | | PM PDT | | | ) | | at 1415, For 1 dose | | | | | | + + + +-------+---+ + +---+---+ | | | +---+---+ documented in this encounter
--- OUTSIDE RECORDS SUMMARY | ~2020-09-05 | XMS | Encounter Summary ---
Demographics + + + | Address | [address] | | | [place] [address] | + + + | Home Phone | | + + + | Preferred Language | Unknown | + + + | Marital Status | Single | + + + | [employer] Affiliation | [id number] | + + + [...] | | | | | [place] [address] | | + + + + + | Concha Paulino | ECON | [address] | | | | | [place] [address] | | + + + + + Care Team Providers + +------+ + | Care Finish Carpenter Name | Role | Phone | + +------+ + | No, Physician | PCP | Unavailable | + +------+ + Reason for Referral Evaluate & Treat (Routine) +--------+ + + + + + | Status | Reason | Specialty | Diagnoses / | Referred By | Referred To | | | | | Procedures | Contact | Contact | +--------+ + + + + + | Closed | Specialty | | Diagnoses | | | | | Services | Services | | Montagnino, | | | | Required | | care and | Tomeka | | | | | | examination | Fatimah | | | | | | immediately | Fabian, DO | | | | | | after | [address] | | | | | | delivery | [address] [place] | | | | | | | [place] | | | | | | | [address] | | | | | | | Phone: | | | | | | | [phone] | | | | | | | Fax: | | | | | | | [phone] | | +--------+ + + + + + Evaluate & Treat (Routine) +--------+ + + + + + | Status | Reason | Specialty | Diagnoses / | Referred By | Referred To | | | | | Procedures | Contact | Contact | +--------+ + + + + + | Closed | Specialty | | Diagnoses | | | | | Services | and | | Patricia, | | | | Required | | care and | Tomeka | | | | | | examination | Fatimah | | | | | | immediately | Fabian, DO | | | | | | after | [address] | | | | | | delivery | [address] | | | | | | | [place], [place] | | | | | | | [address] | | | | | | | Phone: | | | | | | | [phone] | | | | | | | Fax: | | | | | | | [phone] | | +--------+ + + + + + Reason for Visit + + + | Reason | Comments | + + + | Rupture of Membranes | | + + + Auth/Cert +--------+--------+ + + + + | [...] + + + + | 09/23/ | Hospital | [facility] | Tomeka Gomez | care and | | 2017 - | Encounter | [facility] | Fatimah Peralta DO | examination | | | | [address] | [address] | immediately after | | 09/26/ | | [place] | [place] | delivery (Primary | | 2017 | | [id number] | [id number] | Dx) | | | | [phone] | | | +--------+ + + + [...] + + + | Blood Pressure | 102/65 | 09/26/2017 12:24 PM | | | | | PDT | | + + + + + | Pulse | 103 | 09/26/2017 12:24 PM | | | | | PDT | | + + + + + | Temperature | 37.1 C (98.8 F) | 09/26/2017 12:24 PM | | | | | PDT | | + + + + + | Respiratory Rate | 16 | 09/26/2017 12:24 PM | | | | | PDT | | + + + + + | Oxygen Saturation | 95% | 09/26/2017 12:24 PM | | | | | PDT [...] + documented as of this encounter Discharge Summaries Tomeka Gomez DO - 09/25/2017 9:40 AM PDT DISCHARGE SUMMARY-OBSTETRICS Date of Admission: 09/23/2017 Date of Discharge: 09/25/2017 ATTENDING CLINICIAN: Tomeka Peralta Mon* PRIMARY LINING CASER: No Physician on file HISTORY OF PRESENT ILLNESS 17 y.o. 37w0d presented with spontaneous labor. HOSPITAL COURSE: Renny Saravia is a 17 y.o.-year-old, now female (Estimated Date of Deliver y: 10/14/17) who had a delivered by Vaginal, Spontaneous Delivery . At 09/23/2017 1357 [address] bore a living male 2.96 kg (6 lb 8.4 oz) infant, . scores were 9 /9 at one a nd five minutes respectively. Estimated Blood loss was WNL. Her labor course was uncomplicated. Her course was unremarkable. Pain was well controlled and she was ambulating we ll without any difficulty. She had normal bowel an urinary function. Her vital signs were stable and afebrile. Working on nursing at time of discharge. Planning on PP follow-up. Tanja raya was discharged home in stable condition. She was given written post operative instructio ns in regards to her activity level and limitations. DISPOSITION: home CONDITION UPON DISCHARGE: stable DISCHARGE MEDICATIONS: Discharge Medications New Medications Details docusate sodium 100 MG capsule Take 200 mg by mouth nightly. aka: COLACE ibuprofen 600 MG tablet Take 1 tablet by mouth every 6 hours as needed for Pain. aka: ADVIL,MOTRIN Unchanged Medications Details diphenhydrAMINE 25 mg tablet Take 25 mg by mouth every 6 hours as needed for Itching. aka: BENADRYL ferrous sulfate 325 mg tablet Take 325 mg by mouth daily (with breakfast). fluticasone 50 mcg/nasal spray 1 spray by Nasal route Daily. aka: FLONASE hydrOXYzine 50 MG tablet Take 25 mg by mouth as needed. aka: ATARAX 27-0.8 mg multivitamin tablet Take 2 tablets by mouth Daily. Gummies. sertraline 50 mg tablet Take 25 mg by mouth Daily. aka: ZOLOFT There is no immunization history for the selected administration types on file for this [facility] ient. FOLLOWUP: 6 weeks PRECAUTIONS: Pelvic rest for 6 weeks DIET: Regular Electronically Signed by: Tomeka Gomez DO 09/25/2017 9:40 Adocu mented in this encounter Discharge Instructions Instructions Faith Kim RN - 09/26/2017POSTPARTUM DISCHARGE INSTRUCTIONS Warning Signs Check List Notify your clinician immediately if you are experiencing any of the following: Heavy bleeding from the vagina (blood is bright-red and soaks a pad in an hour or less) Normal bleeding decreases in amount over time and is: Bright-red (lasts two to three days). Pinkish or brown (lasts from about the third day to the tenth day). Creamy or yellow (usually lasts one to two weeks). Discharge from the vagina that has a bad odor. Temperature over 100.4 (38 C) or you feel cold and have the chills (you are shiv ering). Urination that is painful, difficult, or too frequent. Difficulty having a bowel movement. Painful, very red, and swollen incision or leaking of any fluids. Breasts that are full and or/painful (swollen, hot, tight, itchy, lumpy, shiny, flat nip ples, or sore spots with flu-like symptoms). Pain that becomes worse and unrelieved by medication. Trouble breathing, dizziness, or faintness. Crying spells or mood swings that feel out of control. Pain, redness, warmth or firmness in the lower calf. Unusual or excessive swelling in your face or hands. Severe or constant headaches. Blurred vision or spots in front of your eyes. Sudden weight gain of more than one pound a day for several days. Persistent pain in the upper right part of your abdomen. Activity/Exercise Do not drive while you are taking narcotics. If you had a section, try driving maneuvers while parked to ensure no increase in incisional pain. Gradually increase your daily activities until you are back to your normal routine. Rest frequently. Remember to continue to drink plenty of fluids and eat frequently if yo u are . Heavy lifting or other strenuous exertion is unlikely to disrupt your incision or lacera tion but it may cause an increase in pain. Your provider will tell you if additional restric tions apply to you. Bowels and Regularity constipation is common; you make take Docusate sodium or Milk of Magnesia to alleviate discomfort Painful bowel movements or rectal pain may result from hemorrhoids; use Tucks and/or top ical treatment like Anusol-HC. Sitz baths can also help. Normal Bleeding Vaginal spotting may last up to six weeks. It is important that you change your pad on a regular basis. Your menstrual period may occur as early as six weeks to two months after your delivery. Care of Stitches You should feel less discomfort every day from your stitches. Perineal stitches will dissolve within 2-4 weeks. You may shower or bathe with stitches; drip plain or soapy water over the incision and d ry gently with a clean towel. If you have robin you may shower (no tub bathing), and dry g ently with a clean towel. If you had any robin that were not removed during your hospitalization they will need to be removed in your provider's office. Steri-strips may fall off on their own or can be removed at post-op visit. Sex/Douching/Tampons Do not place anything in the vagina for the first six weeks after delivery. Your healthcare provider may advise you to wait up to six weeks for intercourse. Once th e bleeding has stopped, it is alright to have intercourse if you feel ready. Keep in mind yo u are at risk of getting . You may find your vagina feels dry, making sex uncomfortable. This can last several sukhjinder hs due to changing hormone levels. To help lubricate your vagina, you may purchase a waterso luble lubricant (e.g., Astroglide) from your local drug store. This will help make intercour se more comfortable. documented in this encounter Medications at Time [...] documented as of this encounter Progress Notes Faith Kim RN - 09/26/2017 5:19 PM [id number] [facility] and ALMITA Soares in visiting with pt and offering resources for support.. Pt requesting to be discharged back t o home with her grandmother. Pt discharged to home with followup in am with clin ic and followup with social media developer Fany Electronically signed by: Faith Kim RN 09/26/2017 17:22 . aith Santos RN - 09/26/2017 2:11 PM PDTSpoke to and up dated her on assessme nt and vs. DR. Verena Jackman to discharge pt. Electronically signed by: Faith Kim RN 09/26/2017 14:13 Beata Pickett DO - 09/26/2017 1:41 PM PDTHas remained afebrile this morning. Asympto matic. Strict precautions for discharge home. SW to finish up discharge planning and then Renny can be discharged with baby. Electronical ly signed by Tomeka Gomez DO at 09/26/2017 1:42 PM Keron Pickett DO - 09/26/2017 9:13 AM PDTObstetrics Progress Note Subjective: Patient doing well this morning without any concerns. Denies any pain or foul smelling loch ia. No urinary symptoms. Pain: Well controlled : improved feeding yesterday. Pumping. Feels that milk may be coming in. Lochia: Minimal to moderate Ambulating: Without any difficulty or dizziness Maternal VS's: BP: 91/56 Pulse: 95 Temp: 37.7 C (99.9 F) Tmax 100.3F x 1 episode ove rnight. Exam: General: No acute distress, baby at bedside CV: RRR Abdomen: Soft, non-tender, non-distended Fundus: Firm, below the umbilicus Extremities: No calf tenderness, no edema Assessment/Plan: Day #3 s/p normal spontaneous vaginal delivery -low-grade temp overnight @ 100.3F x 1 episode, afebrile this AM. Asymptomatic. Feeling a l ittle breast fullness. -monitor today for fever or symptoms, likely will d/c home later today if remains afebrile. -SW visited patient yesterday and will f/u again today with her. Electronically Signed by: Tomeka Gomez DO 09/26/2017 9:13 Tomeka Pickett DO - 09/25/2017 1:01 PM PDTOngoing feeding issues. Renny quite sleepy. Difficulty with l atch still. Also, do not have a pad for the bassinet. It was lost during transport. Social work has not been by to see patient yet. After further review, will remain in-house to work on feeding and social issues. Plan for d/c home tomorrow. Tomeka Pickett DO - 09/25/2017 8:11 AM PDTObstetr ics Progress Note Subjective: Patient doing well without any concerns Pain: Well controlled with ibuprofen : continuing to work of feeding. Pumping after nursing baby. Lochia: Moderate Ambulating: Without any difficulty or dizziness Socially, Renny has a complicated situation. She reports a lot of smoking in the house. She is stressed at home. Patient requests discharge home. Maternal VS's: BP: 114/69 Pulse: 96 Temp: 36.3 C (97.3 F) Exam: General: No acute distress, baby at bedside Abdomen: Soft, non-tender, non-distended Fundus: Firm, below the umbilicus Extremities: No calf tenderness, no edema Assesssment/Plan: Day #2 s/p normal spontaneous vaginal delivery -recovering well and stable for d ischarge -SW to see patient prior to discharge. -needs to f/u with [employer] consultant after discharge home. -d/c home with instructions. PP depression precautions reviewed. Electronically Signed by: Tomeka Gomez DO 09/25/2017 8:11 Anya Leiva RN - 09/23/2017 12:16 PM PDTPt found her contraction pain becoming more and more intense around 1015 am. By 1025 pt was crying/screaming in pain. Pt initially reluctant to take any medication becaus e of her fears of reactions to medications. Information provided on breathing techniques an d Fentanyl IV and epidural. Medicated at her request at 1027 with Fentanyl 50 mcg IV. Only partial relief/requested epidural at 1054. Epidural placed with minimal effort/jignesh procedu re well and was able to cooperate 100%. Now pt still rates her pain as 9/10 but she is rela xed and almost dosing with her eyes closed. Her HR is in the 90's and B/P 116/71. I spoke with Jesu (her S.O.) in the hallway to get his evaluation of her comfort level-he is unsure b ut feels she is much more comfortable than she was when she was crying/screaming but still t hinks it may be 8-9. Repositioned pt and bolus dose given. I asked Jesu to let me know if damien raya becomes concerned about her comfort level and the relief or lack thereof of of pain by the epidural. Nieto DO - 09/23/2017 10:01 AM PDTLabor Progress Note Subjective: Uncomfortable with contractions. Maternal VS's: BP: 90/53 Pulse: 94 Temp: 37.2 C (98.9 F) FHR Assessment (Last assessment): Baseline 130, moderate variability, no decels. Uterine Activity (Last assessment) Method: TOCO (external toco transducer); 2-4 minutes Vaginal Exam (Last assessment) 4/80/0, vtx. Midposition and soft. Assessment/Plan: 17 y.o. 37w0d with PROM. -GBS neg -now pitocin for augmentation, currently @ 6. 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 She reports good movements and denies vaginal bleeding. Review of Systems: Obstetrical: Patient denies headaches, visual changes, or epigastric pain Constitutional: Negative for fever, chills and activity change. Head/Ears: Negative for dizziness, lightheadedness. Respiratory: Negative for chest tightness and shortness of breath. Cardiovascular: Negative for chest pain and leg swelling. Gastrointestinal: Negative for diarrhea, constipation and abdominal distention. Genitourinary: Negative for dysuria and frequency. Musculoskeletal: Negative for back pain and joint swelling. Neurological: Negative for tremors and weakness. Hematological: Does not bruise/bleed easily. Psychiatric/Behavioral: Negative for sleep disturbance and dysphoric mood. Past Medical History: Past Medical History: Diagnosis Date Asthma Depression Depression Hypotension Kidney cysts right Migraine Surgical History: Past Surgical History: Procedure Laterality Date DENTAL SURGERY Family History: Family History Problem Relation Age [...] Hx Seizures Neg Hx Sudden Neg Hx Prior To Admission Medications: Prescriptions Prior to Admission Medication Sig Dispense Refill diphenhydrAMINE (BENADRYL) 25 mg tablet Take 25 mg by mouth every 6 hours as needed for Itching. ferrous sulfate 325 mg tablet Take 325 mg by mouth daily (with breakfast). fluticasone (FLONASE) 50 mcg/nasal spray 1 spray by Nasal route Daily. hydrOXYzine (ATARAX) 50 MG tablet Take 25 mg by mouth as needed. 27-0.8 mg multivitamin tablet Take 2 tablets by mouth Daily. Gummies. sertraline (ZOLOFT) 50 mg tablet Take 25 mg by mouth Daily. Allergies: Allergies Allergen Reactions Rey Flavor Hives Nystatin Swelling Omeprazole Shortness Of Breath Penicillins Hives and Nausea And Vomiting Sulfa Antibiotics Shortness Of Breath Venlafaxine Anaphylaxis Aspirin Other (See Comments) fever Fish Oil Whooping cough injection/ extreme reaction Nitrofuran Derivatives Nausea And Vomiting Penicillins Social History: The pt reports that she has quit smoking. She has never used smokeless tobacco. She report s that she does not drink alcohol or use drugs. LABS: WNL, normal GTT, GBS negative PHYSICAL EXAM: Vital Signs on Arrival: Temp: 37.1 C (98.8 F) Pulse: 94 Resp: 24 SpO2: 96 % BP: 114/73 Vitals Signs (most recent): Temp: 37.3 C (99.1 F) Pulse: 94 Resp: 18 SpO2: 96 % BP: 114 /73 Admission Weight: General: Alert and oriented HEENT: No abnormality noted Lungs: Clear, no respiratory distress Heart: Regular rate and rhythm, Abdomen: Gravid, nontender, heart tones obtained Extremities: Trace edema, normal pulses Estimated Weight: 3100 gm Monitoring: Baseline: 140 Variability: moderate Accels: present Decels: absent CAT: 1 Faith: 1-2 in 10 minutes Vaginal Exam Dilation: 4 Effacement: 70 Station: - 2 Membranes: ruptured BSUS: Vertex, anterior placenta, IMPRESSION: 17 y.o. 37w0d presents for labor PROM at 0145 Early Labor GBS negative History of smoking, quit in 2015 however significant second had smoke exposure PLAN: Admit to L&D Admission labs Will augmentation labor prn. Pain control per patient request Plan for vaginal delivery Adalberto Monsalve MD documen kira in this encounter Miscellaneous Notes Plan of Care - Fany Bello MSW - 09/26/2017 12:42 PM PDTProblem: Discharge Planning Goal: Patient will be discharged in a safe manner Update: PM: This CM contacted multiple agencies in [place], [place], and [place] about assistance with obtaining t he patient's certificate and ID. This CM contacted multiple agencies about affordable housing in [place] and [place]. The outcome was that [place] has a year-long waiting list which the patien zion's SO is already on. Additionally, without an official ID cared, the patient cannot obtain her certificate without assistance from a central office inspector and/or her mother. This CM contacted [facility] to see if the patient would qualify. The end result was a safe disc harge plan to the [facility] where she could have free, safe housing for 3 months as well as acces s to legal assistance to get her certificate and free mental health counseling. The p rajeev and her SO were presented with this plan as a short term option and a way to obtain t heir longer term goals. The patient declined. This CM asked about other options for dischar ge such as other family members. Jesu has a "second mom" that they could stay with however, zion matthews've decided to return to the patient's mother's house for the short term. This CM confer red with her supervisor mold yard, the patient's RN, and [facility]. This CM then asked the patient if she would be willing to participate in Healthy Families, Healthy Start though the [facility] [place] and she accepted. This CM obtained a signed release of information and will send the referral to the [facility] program. Additionally, this CM will look into our [employer] fund to see if we can provide the money to help her get her certificate if she can get her mother's assistance in completing the application. The patient was presented with the fund o ption and agreed. Follow-up planned for tomorrow at her session to see how it went at home last nig ht, to see if she has any community or adventist support networks who can help her with funds, to ask again if she would like to go to the [facility], and to see if her mother will help her wit h her certificate. AM: This CM researched housing options in [place] and discussed them with the patient and he r SO, Jesu. The patient stated that they have decided to stay with Jesu's family for the shor t term as the closest available low income housing options are in [facility]. This CM has bee n in touch with [facility] regarding legal options and is waiting for a return call. This CM has left a message with Macie at [facility] and will follow-up this afternoon. This CM will co ntact [employer] regarding ppd. Electronically signed by: JENA Stuart 09/26/2017 12:42 lan of Care - Cindi Martinez RN - 09/26/2017 7:29 AM PDTProblem: Patient Care Overview (Adult) Goal: Care Team Goals & Evaluation PROBLEM-RELATED GOALS: 1. Patient will maintain hemodynamically stable as evidenced by stable VS, H/H WDL, Postpa rtum bleeding WDL,, I/O s wdl by 09/25/07 2. Patient will remain free of s/s of infection as evidenced by afebrile, WBC WDL, no incr eased pain, no foul smelling lochia by 09/25/17 3. Patient will report acceptable pain/discomfort and/or pain <=3/10 until 09/25/17 STRATEGY TO ACHIEVE GOALS: 1. Monitor VS routinely, Encourage early , Watch for changes in blood pressur e, heart rate and urine output, Continue uterine fundal massage, if fundus remains boggy, An ticipate administration of uterotonic medications, Accurately assess amount of blood loss (e .g., weigh perineal pads), Check for pooling on underpad 2. Promote hand and personal hygiene, assist to void/Encourage frequent voiding, Monitor f or fundal displacement/palpable bladder, Promote adequate fluid and nutritional intake. 3. Use a consistent pain scale for regular/frequent assessment, Mutually determine/review pain management plan regularly, Consider the presence of pre-existing persistent pain, Recog nize need to maintain chronic regimen with additional dosing to manage acute pain, Encourage /facilitate nonpharmacologic pain techniques (e.g., hydrotherapy, relaxation) Goal Evaluation: Fundus firm, lochia moderate. Has denied pain throughout shift. baby, pumpin g also. Has c/o being cold much of shift, has low grade fever this am, no tenderness with fu ndal palpation or pain on assessment. Milk is coming in. lan of [facility] - Fany Bello, LITHOGRAPHERS PRINTER - 09/25/2017 7:16 PM PDTProblem: Discharge Planning Goal: Patient will be discharged in a safe manner This CM met with the patient and her SO/FOB, Jesu, to discuss plans post discharge. The andres timmons lives with her mother, grandmother, and Jesu. The living environment is not ideal and t byron requested assistance with housing options. They have a car seat, clothes, toys, and a bl anket. CM worked with [employer] and the shipping specialist to get a bassinet for the p atient. The patient does not have a valid [place] ID such as a state issued ID card or telephone directory distributor driver's license. This CM is going to contact [facility] in the morning to see if they can help resolve the ID iss ue and if they have housing options available in , [place], [place], or [place]. The patient does not work and plans initially to stay home and, in November, enroll in [employer] to finish her 2 remaining credits The patient stated the HS has a daycare and she has her transcripts and knows the process of completing her degree. The patient's S O just started working full-time at [employer] in [place] and is going to have insurance and a steady income soon. The patient has a history of depression starting with the of her father when she was 5 years old. This CM discussed counseling options with her and she expressed interest. The patient stated that she would be willing to have assistance with scheduling a counseling ap pointment with [facility]. This CM confirmed the following plan for tomorrow: contact Macie at [facility] to confirm assistance with enrolling in [place], [facility] about housing and ID, and [facility]. The patient accepted brochures on WIC, "where to go for help", and post . Electronically signed by: JENA Stuart 09/25/2017 19:14 lan of Care - Faith Craig RN - 09/25/2017 4:23 PM PDTProblem: Patient Care Overview (Adult) Goal: Care Team Goals & Evaluation PROBLEM-RELATED GOALS: 1. Patient will maintain hemodynamically stable as evidenced by stable VS, H/H WDL, Postpa rtum bleeding WDL,, I/O s wdl by 09/25/07 2. Patient will remain free of s/s of infection as evidenced by afebrile, WBC WDL, no incr eased pain, no foul smelling lochia by 09/25/17 3. Patient will report acceptable pain/discomfort and/or pain <=3/10 until 09/25/17 STRATEGY TO ACHIEVE GOALS: 1. Monitor VS routinely, Encourage early , Watch for changes in blood pressur e, heart rate and urine output, Continue uterine fundal massage, if fundus remains boggy, An ticipate administration of uterotonic medications, Accurately assess amount of blood loss (e .g., weigh perineal pads), Check for pooling on underpad 2. Promote hand and personal hygiene, assist to void/Encourage frequent voiding, Monitor f or fundal displacement/palpable bladder, Promote adequate fluid and nutritional intake. 3. Use a consistent pain scale for regular/frequent assessment, Mutually determine/review pain management plan regularly, Consider the presence of pre-existing persistent pain, Recog nize need to maintain chronic regimen with additional dosing to manage acute pain, Encourage /facilitate nonpharmacologic pain techniques (e.g., hydrotherapy, relaxation) Outcome: Improving Goal Evaluation: Up ad savannah, ff at U -1 with light flow, ibuprofen taken for cramping, co feeling tired, star kira back on zoloft. actation Not e - Christine Viveros RN - 09/25/2017 8:48 AM PDTMother bonding with infant states she is ab le to latch to the breast did attached to the breast well and sucked both s ides for 15 mins Education given on the breast pumping and encouraged to pump to increase h er milk supply Mother was very happy to continue with this plan soothies were also given t o the patient for comfort to her left breast SO was also assisting in caring for the infan t actation Note - Christine Bui RN - 09/25/2017 8:44 AM PDTThis note was copied from a baby's chart. to the breast latched well and sucking Mother instructed to breast feed 15 mins on both sides and then to pump and offer the breast milk supply to infant Education on posit ioning and pumping to increase milk supply was given to the mother lan of Care - Alexei Head RN - 017 4:04 AM PDTProblem: Patient Care Overview (Adult) Goal: Care Team Goals & Evaluation PROBLEM-RELATED GOALS: 1. Patient will maintain hemodynamically stable as evidenced by stable VS, H/H WDL, Postpa rtum bleeding WDL,, I/O s wdl by 09/25/07 2. Patient will remain free of s/s of infection as evidenced by afebrile, WBC WDL, no incr eased pain, no foul smelling lochia by 09/25/17 3. Patient will report acceptable pain/discomfort and/or pain <=3/10 until 09/25/17 STRATEGY TO ACHIEVE GOALS: 1. Monitor VS routinely, Encourage early , Watch for changes in blood pressur e, heart rate and urine output, Continue uterine fundal massage, if fundus remains boggy, An ticipate administration of uterotonic medications, Accurately assess amount of blood loss (e .g., weigh perineal pads), Check for pooling on underpad 2. Promote hand and personal hygiene, assist to void/Encourage frequent voiding, Monitor f or fundal displacement/palpable bladder, Promote adequate fluid and nutritional intake. 3. Use a consistent pain scale for regular/frequent assessment, Mutually determine/review pain management plan regularly, Consider the presence of pre-existing persistent pain, Recog nize need to maintain chronic regimen with additional dosing to manage acute pain, Encourage /facilitate nonpharmacologic pain techniques (e.g., hydrotherapy, relaxation) Outcome: Improving Goal Evaluation: VSS, voiding without problems. , pain well controlled with Ibuprofen,, lan of [facility] georginaFaith Weinstein RN - 09/24/2017 3:12 PM PDTProblem: Patient Care Overview (Adult) Goal: Care Team Goals & Evaluation PROBLEM-RELATED GOALS: 1. Patient will maintain hemodynamically stable as evidenced by stable VS, H/H WDL, Postpa rtum bleeding WDL,, I/O s wdl by 09/25/07 2. Patient will remain free of s/s of infection as evidenced by afebrile, WBC WDL, no incr eased pain, no foul smelling lochia by 09/25/17 3. Patient will report acceptable pain/discomfort and/or pain <=3/10 until 09/25/17 STRATEGY TO ACHIEVE GOALS: 1. Monitor VS routinely, Encourage early , Watch for changes in blood pressur e, heart rate and urine output, Continue uterine fundal massage, if fundus remains boggy, An ticipate administration of uterotonic medications, Accurately assess amount of blood loss (e .g., weigh perineal pads), Check for pooling on underpad 2. Promote hand and personal hygiene, assist to void/Encourage frequent voiding, Monitor f or fundal displacement/palpable bladder, Promote adequate fluid and nutritional intake. 3. Use a consistent pain scale for regular/frequent assessment, Mutually determine/review pain management plan regularly, Consider the presence of pre-existing persistent pain, Recog nize need to maintain chronic regimen with additional dosing to manage acute pain, Encourage /facilitate nonpharmacologic pain techniques (e.g., hydrotherapy, relaxation) Outcome: Improving Goal Evaluation: Up amb independantly, Ff at u , voiding without problems, light fl ow. Tolerating general diet, reports feeling tired today and napping between feeds and care for baby, denies need for pain meds. actation Not e - Christine Viveros RN - 09/24/2017 10:08 AM PDTThis note was copied from a baby's chart. Infant assisted to the breast Latch well with assistance audible swallow heard Mother in structed to pump after feeding to increase her milk supply Mother Educated to breast feed every 2- 3 hours lan of Care - Loreta Davidson RN - 09/24/2017 7:33 AM PDTProblem: Patient Care Overview ( Adult) Goal: Care Team Goals & Evaluation PROBLEM-RELATED GOALS: 1. Patient will maintain hemodynamically stable as evidenced by stable VS, H/H WDL, Postpa rtum bleeding WDL,, I/O s wdl by 09/25/07 2. Patient will remain free of s/s of infection as evidenced by afebrile, WBC WDL, no incr eased pain, no foul smelling lochia by 09/25/17 3. Patient will report acceptable pain/discomfort and/or pain <=3/10 until 09/25/17 STRATEGY TO ACHIEVE GOALS: 1. Monitor VS routinely, Encourage early , Watch for changes in blood pressur e, heart rate and urine output, Continue uterine fundal massage, if fundus remains boggy, An ticipate administration of uterotonic medications, Accurately assess amount of blood loss (e .g., weigh perineal pads), Check for pooling on underpad 2. Promote hand and personal hygiene, assist to void/Encourage frequent voiding, Monitor f or fundal displacement/palpable bladder, Promote adequate fluid and nutritional intake. 3. Use a consistent pain scale for regular/frequent assessment, Mutually determine/review pain management plan regularly, Consider the presence of pre-existing persistent pain, Recog nize need to maintain chronic regimen with additional dosing to manage acute pain, Encourage /facilitate nonpharmacologic pain techniques (e.g., hydrotherapy, relaxation) Outcome: Improving Goal Evaluation: VSS, afebrile. FFU-1 lochia light. Pain to lower back and abdomin well controlled with Ib uprofen. &D Delivery Note - Tomeka Gomez DO - 09/23/2017 2:17 PM PDTFormatting of this note seferino ht be different from the original. OBSTETRICAL VAGINAL DELIVERY NOTE Pre-op Diagnosis: 1. Intrauterine at 37w0d 2. PROM Post-op Diagnosis: same including 3. Delivered Procedure: Normal Spontaneous Vaginal Delivery Delivering Physician: Tomeka Gomez DO Findings: Information for the patient's : Ki Saravia [[id number]] Delivery Date: 09/23/2017 Delivery Time: 1357 Baby: Ki Saravia Sex: male Weight: Height: Head circumference: APGARS One minute Five minutes Ten minutes Totals: , weight pending, with APGARs 9 at one minute and 9 at five minutes. Placenta delivered spontaneously intact with 3 vessel cord with uterine massage. Lacerations: EBL: 150ml Anesthesia: epidural Pre-delivery course: Renny Saravia is a 17 y.o., who presented at 37w0d wi th PROM. She did require pitocin for augmentation of contractions. Her labor course was une ventful. Description of delivery: I was called for delivery as the patient was complete. She labored down for about 45 minut es. She pushed for about 30 minutes and delivered a viable in cephalic presentation . The head delivered in a leftt occiput anterior presentation and the right shoulder was th e anterior shoulder which delivered spontaneously without any difficulty. The remainder of the delivery was uncomplicated and atraumatic. The baby was placed directly on the mother's abdomen. The cord was clamped times two and subsequently cut by the baby's father at 2 radha piero of life. Cord blood was obtained. An oxytocin infusion was then started and the placenta was removed spontaneously and found to be intact with a three vessel cord. Massage of the uterine fundus noted good tone. Insp ections for lacerations noted no lacerations. Very small abrasion at perineum that was blee ding. One figure of eight stitch of 3-0 vicryl placed for hemostasis. The patient tolerated the delivery well without any complications. Sponge, instrument, and needle counts were correct times two. The mother and baby were recovering together in the delivery room. Electronically Signed by: Tomeka Gomez DO 09/23/2017 14:19 lan of Care - Christine Viveros RN - 09/23/2017 9:47 AM Kellie Goemz at bedside SVE done Plan of care reviewed El ectronically signed by Christine Viveros RN at 09/23/2017 9:48 AM PDTPlan of Care - Yaneli Viveros RN - 09/23/2017 7:48 AM PDTProblem: Patient Care Overview (Adult) Goal: Care Team Goals & Evaluation PROBLEM-RELATED GOALS: 1. Renny will not demonstrate s/s of infection while in labor 09/23/17 2. Renny will maintain a CAT 1-2 efm strip while in labor 09/23/17 3. Renny will deliver vaginally a viable 09/23/17 4. Renny will report and acceptable pain/discomfort =<4/10 09/23/17 STRATEGY TO ACHIEVE GOALS: 1.Verify Group B streptococcus status and presence of known infection(s) Promote perineal hygiene Limit vaginal exams during labor Assist with obtaining cultures, as indicated Provide fever/comfort measures 2.Adjust maternal position as indicated to relieve cord compression, promote comfort and fa cilitate the delivery process.Assess uterine activity pattern Consider insertion of intrauterine pressure catheter, if not already in place Evaluate heart rate tracing/well-being; assess for variability and presence of accele rations. Promote/facilitate voiding at least every two hours Adjust maternal position every 30 minutes (e.g., lateral, upright, on knees, use of birthin g ball). Anticipate need for pharmacotherapy to facilitate the labor process 3. Correlate maternal clinical status to stage of labor, labor progress, uterine activity, heart rate tracing, and position. Perform vaginal exam(s) to assess descen t Assist with positioning/pressure application/maneuvers to facilitate the birthing process Anticipate the need for emergent delivery 4. Use a consistent pain scale for regular/frequent assessment Mutually determine/review pain management plan regularly Consider the presence of pre-existing persistent pain Recognize need to maintain chronic regimen with additional dosing to manage acute pain Encourage/facilitate nonpharmacologic pain techniques (e.g., hydrotherapy, relaxation) Assist with positioning for comfort.Respect wishes for alternative pain relief methods Outcome: Improving Goal Evaluation: Pt given reassurance as pt anxious about the starting of Pitocin Education given to kati ent and reassurance Pt afebrile lan of Christine Zhu RN - 09/23/2017 7:44 AM PDTReport taken from Anya BARRETT Plan of care reviewed with pt Family in room with pt FHT Category 1 Pitocin infusing lan of Loreta Chun RN - 09/23/20 17 7:12 AM PDTBedside report given to Anya BARRETT. All patients questions answered. Electronic ally signed by Loreta Davidson RN at 09/23/2017 7:13 AM PDTPlan of Kenyatta Chun RN - 09/23/2017 6:13 AM PDTProblem: Patient Care Overview (Adult) Goal: Care Team Goals & Evaluation PROBLEM-RELATED GOALS: 1. Renny will not demonstrate s/s of infection while in labor 09/23/17 2. Renny will maintain a CAT 1-2 efm strip while in labor 09/23/17 3. Renny will deliver vaginally a viable 09/23/17 4. Renny will report and acceptable pain/discomfort =<4/10 09/23/17 STRATEGY TO ACHIEVE GOALS: 1.Verify Group B streptococcus status and presence of known infection(s) Promote perineal hygiene Limit vaginal exams during labor Assist with obtaining cultures, as indicated Provide fever/comfort measures 2.Adjust maternal position as indicated to relieve cord compression, promote comfort and fa cilitate the delivery process.Assess uterine activity pattern Consider insertion of intrauterine pressure catheter, if not already in place Evaluate heart rate tracing/well-being; assess for variability and presence of accele rations. Promote/facilitate voiding at least every two hours Adjust maternal position every 30 minutes (e.g., lateral, upright, on knees, use of birthin g ball). Anticipate need for pharmacotherapy to facilitate the labor process 3. Correlate maternal clinical status to stage of labor, labor progress, uterine activity, heart rate tracing, and position. Perform vaginal exam(s) to assess descen t Assist with positioning/pressure application/maneuvers to facilitate the birthing process Anticipate the need for emergent delivery 4. Use a consistent pain scale for regular/frequent assessment Mutually determine/review pain management plan regularly Consider the presence of pre-existing persistent pain Recognize need to maintain chronic regimen with additional dosing to manage acute pain Encourage/facilitate nonpharmacologic pain techniques (e.g., hydrotherapy, relaxation) Assist with positioning for comfort.Respect wishes for alternative pain relief methods Outcome: Unchanged Goal Evaluation: VSS, afebrile. Category I strip this shift. Renny has been up walking in the rbiceno and re sting in bed this shift. States that pain level is 4/10 with contractions, denies need for pain meds. Smiling, talking with friend and playing on phone. Voiding well. lan of Care - Loreta Zhang RN - 09/23/2017 4:00 AM PDTUp to walk in hallways, smiling and talking t o friend. Appears comfortable at this time. States her contractions are a little stronger than when she came in. B Triage Notes - Yolande Conner RN - 09/23/2017 2:25 AM PDTPatient here c/o ruptured membranes at around 0140, denies any bleeding, denies contractions, baby is moving normally. documented in this enco unter Plan of Treatment [...] | | | | | [place] [id number] | | | | | | [phone] | | | | | | | | +--------+ + + + + | 09/22/ | Office | Physical Medicine | Gonzalo Merchant, | | | 2019 | Visit | and Rehabilitation | MD Vela [address] | | | | | | [place] | | | | | | [id number] | | | | | | | | +--------+ + + + + | 09/29/ | Virtual | Pain Medicine | [facility] | | | 2019 | Office | | [address] | | | | Visit | | [address] | | | | | | [place], | | | | | | [place] [address] | | | | | | [phone] | | | | | | | [...] | + + +--------+ + + | Amb referral to | Outpatient | Routin | care | 1 Occurrences | | | Referral | e | and examination | starting 09/25/2017 | | | | | immediately after | until 09/23/2018 | | | | | delivery | | + + +--------+ + + | Ambulatory referral | Outpatient | Routin | care | 1 Occurrences | | to | Referral | e | and examination | starting 09/25/2017 | | | | | immediately after | until 09/23/2018 | | | | | delivery | | + + +--------+ + + documented as of this encounter Procedures + +--------+ + + + | Procedure Name | Priori | Date/Time | Associated Diagnosis | Comments | | | ty | | | | + +--------+ + + + | CBC NO DIFFERENTIAL | Routin | 09/24/2017 | | Results for this | | | e | 6:02 AM | | procedure are in the | | | | PDT | | results section. | + +--------+ + + + | CBC NO DIFFERENTIAL | STAT | 09/23/2017 | | Results for this | | | | 3:47 AM | | procedure are in the | | | | PDT | | results section. | + +--------+ + + + | TYPE AND SCREEN | Routin | 09/23/2017 | | Results for this | | | e | 3:47 AM | | procedure are in the | | | | PDT | | results section. | + +--------+ + + + | RUPTURE OF MEMBRANES | Routin | 09/23/2017 | | Results for this | | | e | 2:33 AM | | procedure are in the | | | | PDT | | results section. | + +--------+ + + + documented in this encounter Results CBC no Differential (09/24/2017 6:02 AM PDT) + + + + + + | Component | Value | Ref Range | Performed | Pathologist | | | | | At | Signature | + + + + + + | White Blood | 16.6 (H) | 4.0 - 11.0 K/uL | [...] + + + + | Hematocrit | 33.0 (L) | 34.0 - 47.0 % | [facility] - | | | | | | LABORATORY | | + + + + + + | MCV | 84.8 | 83.0 - 101.0 fL | [facility] [...] + + + + | MCHC | 34.2 | 32.0 - 36.0 | [facility] | [...] + + + + | Platelet | 303 | 140 - 440 K/uL | [facility] [...] [facility] | [address] | [place] | [phone] | | [facility] | | [address] | | | - LABORATORY | | | | + + + + + CBC no Differential (09/23/2017 3:47 AM PDT) + + + + + + | Component | Value | Ref Range | Performed | Pathologist | | | | | At | Signature | + + + + + + | White Blood | 17.2 (H) | 4.0 - 11.0 K/uL | [facility] | | | Cells | | | [facility] | | [facility] | | [facility] | | | | | [facility] - | | | | | | LABORATORY | | + + + + + + | Red Blood | 3.86 | 3.70 - 5.20 | [facility] | | | Cells | | M/uL | [facility] | | | | | | [facility] | | | | | | [facility] - | | | | | | LABORATORY | | + + + + + + | Hemoglobin | 11.1 (L) | 11.5 - 16.0 | [facility] | | | | | g/dL | [facility] | | | | | | [facility] | | | | | | [facility] - | | | | | | LABORATORY | | + + + + + + | Hematocrit | 32.8 (L) | 34.0 - 47.0 % | [facility] | | | | | [facility] | | | | | | [facility] | | | | | | [facility] - | | | | | | LABORATORY | | + + + + + + | MCV | 84.9 | 83.0 - 101.0 fL | [facility] | | | | | [facility] | | | | | [facility] | | | | | | [facility] - | | | | | | LABORATORY | | + + + + + + | MCH | 28.7 | 28.0 - 35.0 pg | [facility] [...] + + + + | RDW-CV | 15.6 (H) | <15.0 % | [facility] | [facility] | | | | | [facility] - | | | | | | LABORATORY | | + + + + + + | Platelet | 287 | 140 - 440 K/uL | [facility] [...] + | [facility] | [address] | [place] | [phone] | | [facility] | | [address] | | | - LABORATORY | | | | + + + + + Type and Screen (09/23/2017 3:47 AM PDT) + + + + + + | Component | Value | Ref Range | Performed | Pathologist | | | | | At | Signature | + + + + + + | ABO | A | | [facility] | | | [...] St | [place] | | | [facility] | | [address] | | | - BLOOD BANK | | | | + + + + + Rupture of Membranes (09/23/2017 2:33 AM PDT) + + + + + + | Component | Value | Ref Range | Performed | Pathologist | | | | | At | Signature | + + + + + + | Rupture of | Positive (A) | Negative | [facility] | | | | | | [facility] | | | Membranes | | | [...] + + + + + | [facility] | [address] | [place], [place] | [phone] | | [facility] | | [address] | | | - LABORATORY | | | | + + + + + documented in this encounter Visit Diagnoses + + | Diagnosis | + + | care and examination immediately after delivery - Primary | + + documented in this encounter Administered Medications + +--------+---------+------+------+------+ | Medication Order | MAR | Action | Dose | Rate | Site | | | Action | Date | | | | + +--------+---------+------+------+------+ + +---+ | acetaminophen (TYLENOL) tablet | | | 325-650 mg 325-650 mg, Oral, | | | EVERY 4 HOURS PRN, Mild Pain, | | | Starting 09/23/17 at 1609, | | | | | + +---+ | | | + +---+ | aluminum & magnesium | | | hydroxide-simethicone (MAALOX | | | PLUS REGULAR STRENGTH) 200-200-20 | | | mg/5 mL suspension 15 mL 15 mL, | | | Oral, EVERY 4 HOURS PRN, | | | Indigestion, Starting Mon | | | 09/23/17 at 1609, Shake well., | | | | | + +---+ | | | + +---+ | benzocaine (AMERICAINE | | | HEMORRHOIDAL) 20% rectal ointment | | | Rectal, EVERY 6 HOURS PRN, | | | Hemorrhoidal Pain, Starting Mon | | | 09/23/17 at 1609, | | + +---+ | | | + +---+ + +-------+ +---+---+---+ | benzocaine 20%-menthol | Given | 09/24/20 | | | | | (DERMOPLAST) topical spray | | 17 4:38 | | | | | Topical, EVERY 6 HOURS PRN, Pain, | | AM PDT | | | | | Starting 09/23/17 at 1609, | | | | | | | | | | | | | + +-------+ +---+---+---+ + +---+ | | | + +---+ | bisacodyl (DULCOLAX) | | | suppository 10 mg 10 mg, Rectal, | | | DAILY PRN, Constipation, | | | Starting 09/23/17 at 1609, | | | | | + +---+ | | | + +---+ | calcium carbonate (TUMS) | | | chewable tablet 1,000 mg 1,000 | | | mg, Oral, EVERY 8 HOURS PRN, | | | Indigestion, Starting Mon | | | 09/23/17 at 1609, | | + +---+ | | | + +---+ | carboprost (HEMABATE) injection | | | 250 mcg 250 mcg, Intramuscular, | | | EVERY 15 MIN PRN, Post- | | | hemorrhage, Starting 09/23/17 | | | at 0332, May give only after | | | delivery. May repeat every 15-90 | | | minutes. Not to exceed 8 | | | doses/24 hours. Do not give if | | | history of asthma., | | + +---+ | | | + +---+ | diphenhydrAMINE (BENADRYL) | | | injection 12.5 mg 12.5 mg, | | | Intravenous, EVERY 4 HOURS PRN, | | | Itching, Starting 09/23/17 at | | | 1049, For itching, use the | | | following sequence if meds are | | | ordered: Give nalbuphine first. | | | If maximum dose given or | | | ineffective, give | | | diphenhydramine, Post-op/Phase II | | + +---+ | | | + +---+ + +-------+ +--------+---+---+ | docusate sodium (COLACE) | Given | 09/25/20 | 200 mg | | | | capsule 200 mg 200 mg, Oral, | | 17 8:07 | | | | | NIGHTLY, First dose on Mon | | PM PDT | | | | | 09/23/17 at 2100, Hold for loose | | | | | | | stools, | | | | | | + +-------+ +--------+---+---+ +-------+ +--------+---+---+ | Given | 09/24/20 | 200 mg | | | | | 17 8:36 | | | | | | PM PDT | | | | +-------+ +--------+---+---+ | Given | 09/23/20 | 200 mg | | | | | 17 8:18 | | | | | | PM PDT | | | | +-------+ +--------+---+---+ + +---+ | | | + +---+ | ePHEDrine 50 mg/mL injection 15 | | | mg 15 mg, Intravenous, ONCE | | | PRN, BP decrease with | | | non-reassuring heart rate | | | pattern, Starting Sat09/23/17 at | | | 1049, For 1 dose, Post-op/Phase | | | II | | + +---+ | | | + +---+ | ePHEDrine 50 mg/mL injection | | | 5-10 mg 5-10 mg, Intravenous, | | | EVERY 5 MIN PRN, BP decreased | | | more than 20% of baseline, | | | Starting Sat09/23/17 at 1049, | | | Post-op/Phase II | | + +---+ | | | + +---+ + +-------+ +--------+---+---+ | fentaNYL (PF) injection 50-100 | Given | 09/23/20 | 50 mcg | | | | mcg 50-100 mcg, Intravenous, | | 17 10:27 | | | | | EVERY 1 HOUR PRN, Pain, Starting | | AM PDT | | | | | 09/23/17 at 0332, Maximum | | | | | | | total dose is 200 mcg., Labor and | | | | | | | Delivery | | | | | | + +-------+ +--------+---+---+ + +---+ | | | + +---+ | HYDROcodone-acetaminophen | | | (NORCO) 5-325 mg per tablet 1-2 | | | tablet 1-2 tablet, Oral, EVERY 4 | | | HOURS PRN, Pain, Starting Mon | | | 09/23/17 at 1609, If ineffective | | | or not tolerated, use oxycodone | | | if ordered., | | + +---+ | | | + +---+ + +-------+ +--------+---+---+ | ibuprofen (ADVIL,MOTRIN) tablet | Given | 09/25/20 | 600 mg | | | | 600 mg 600 mg, Oral, EVERY 6 | | 17 8:17 | | | | | HOURS PRN, Pain, Starting Mon | | AM PDT | | | | | 09/23/17 at 1609, If urine output | | | | | | | is less than 240 mL/8 hours (30 | | | | | | | mL/hr) or if signs of bleeding, | | | | | | | contact MD and hold ibuprofen., | | | | | | | | | | | | | + +-------+ +--------+---+---+ +-------+ +--------+---+---+ | Given | 09/24/20 | 600 mg | | | | | 17 4:22 | | | | | | AM PDT | | | | +-------+ +--------+---+---+ + +---+ | | | + +---+ | lactated ringers (LR) bolus | | | 1,000 mL 1,000 mL, Intravenous, | | | Administer over 2 Hours, ONCE | | | PRN, For SBP < 90mmHg, Starting | | | 09/23/17 at 1049, For 1 dose, | | | Post-op/Phase II | | + +---+ | | | + +---+ + +---------+ +---+-------+---+ | lactated ringers (LR) infusion | New Bag | 09/23/20 | | 125 | | | at 125 mL/hr, Intravenous, | | 17 12:16 | | mL/hr | | | CONTINUOUS, Starting 09/23/17 | | PM PDT | | | | | at 0400, Labor and Delivery | | | | | | + +---------+ +---+-------+---+ +---------+ +---+-------+---+ | New Bag | 09/23/20 | | 125 | | | | 17 7:28 | | mL/hr | | | | AM PDT | | | | +---------+ +---+-------+---+ + +---+ | | | + +---+ | lactated ringers (LR) infusion | | | at 100 mL/hr, Intravenous, | | | CONTINUOUS, Starting 09/23/17 | | | at 1630, Discontinue IV fluid | | | when tolerating PO well, | | | | | + +---+ | | | + +---+ | lanolin ointment Topical, PRN, | | | Dry Skin, for moist wound | | | healing, Starting Sat09/23/17 at | | | 1609, Apply to nipples. May keep | | | at bed side., | | + +---+ | | | + +---+ | loperamide (IMODIUM) capsule | | | 2-4 mg 2-4 mg, Oral, PRN, | | | Diarrhea, Starting Sat09/23/17 | | | at 0332, May give only after | | | delivery. Give 4mg with 1st dose | | | of hemabate, then 2 mg PRN after | | | each loose stool up to a maximum | | | of 16 mg/day (do not give stool | | | softners or laxatives until | | | diarrhea is resolved)., | | | | | + +---+ | | | + +---+ | magnesium hydroxide (MILK OF | | | MAGNESIA) 400 mg/5 mL suspension | | | 30 mL 30 mL, Oral, NIGHTLY PRN, | | | Constipation, Starting Mon | | | 09/23/17 at 1609, Shake well., | | | | | + +---+ | | | + +---+ | methylergonovine (METHERGINE) | | | injection 0.2 mg 0.2 mg, | | | Intramuscular, PRN, Bleeding, if | | | BP < 140/90, Starting Mon | | | 09/23/17 at 0332, May repeat x 1. | | | May give only after delivery. | | | Consult provider if patient is | | | hypertensive., | | + +---+ | | | + +---+ | metoclopramide (REGLAN) tablet | | | 10 mg 10 mg, Oral, EVERY 4 HOURS | | | PRN, Nausea, Vomiting, Starting | | | 09/23/17 at 1609, Use if | | | ondansetron and prochlorperazine | | | ineffective after 30 minutes or | | | not ordered, | | + +---+ | | | + +---+ | miSOPROStol (CYTOTEC) tablet | | | 600 mcg 600 mcg, Oral, PRN, | | | Post- hemorrhage, Starting | | | 09/23/17 at 0332, For 1 dose, | | | If general anesthesia give per | | | rectum. May give only after | | | delivery., | | + +---+ | | | + +---+ | miSOPROStol (CYTOTEC) tablet | | | 800 mcg 800 mcg, Rectal, PRN, | | | Post- hemorrhage, Starting | | | 09/23/17 at 0332, For 1 dose, | | | If unable to administer orally. | | | May give only after delivery., | | | | | + +---+ | | | + +---+ | nalbuphine (NUBAIN) injection | | | 2.5-5 mg 2.5-5 mg, Intravenous, | | | EVERY 4 HOURS PRN, Itching, | | | Starting Sat09/23/17 at 1049, | | | For itching, use the following | | | sequence if meds are ordered: | | | Give nalbuphine first. If maximum | | | dose given or ineffective, give | | | diphenhydramine, Post-op/Phase II | | + +---+ | | | + +---+ | naloxone (NARCAN) 0.4 mg/mL | | | injection 0.04 mg 0.04 mg, | | | Intravenous, PRN, Itching, or | | | repiratory rate < 8, Starting Mon | | | 09/23/17 at 1049, Mix 0.4mg (1 | | | vial) with 9 ml normal saline in | | | syringe and give 1 ml (0.04mg) | | | For Itching - Give Q 10 Min prn | | | Use if Nalbuphine and | | | diphenhydramine are ineffective | | | and call anesthesia provider. | | | For RR < 8 - Give Q 2 Min prn | | | until RR > 12. Notify | | | anesthesia provider service liaison representative or | | | Pain Management Physician if | | | administered., Post-op/Phase II | | + +---+ | | | + +---+ | naloxone (NARCAN) 0.4 mg/mL | | | injection 0.4 mg 0.4 mg, | | | Intravenous, ONCE PRN, Apnea, | | | Starting 09/23/17 at 1049, | | | For 1 dose, For respiratory | | | arrest, give dose STAT, call Code | | | Blue and notify anesthesiologist | | | service liaison representative., Post-op/Phase II | | + +---+ | | | + +---+ | ondansetron (ZOFRAN ODT) | | | disintegrating tablet 4 mg 4 mg, | | | Oral, EVERY 6 HOURS PRN, Nausea, | | | Vomiting, Starting 09/23/17 | | | at 1609, First line agent, | | | | | + +---+ | | | + +---+ + + + + +---------+---+ | oxytocin in saline (PITOCIN) 30 | Rate/Dos | 09/23/20 | 8 | 8 mL/hr | | | units/500 mL (60 yuridia-units/mL) | e Change | 17 10:00 | yuridia-un | | | | infusion 0-999 yuridia-units/min | | AM PDT | its/min | | | | (0-999 mL/hr), at 0-999 mL/hr, | | | | | | | Intravenous, TITRATED, Starting | | | | | | | 09/23/17 at 0400, Low Dose | | | | | | | (Cervical Ripening) Management: | | | | | | | Dose 1-4 mU/min. Begin infusion | | | | | | | at 1 mU/min for 60 minutes, | | | | | | | Increase to 2 mU/min for 60 | | | | | | | minutes, Increase to 4 mU/min and | | | | | | | continue at this level until | | | | | | | Olivo score of 7 or more. | | | | | | | Maximum dose for cervical | | | | | | | ripening = 4mU/min. Standard | | | | | | | (Augmentation/Induction) | | | | | | | Management: Dose 0-40 mU/min. | | | | | | | Begin infusion at 1-2 mU/minute. | | | | | | | Increase at no greater than 2 | | | | | | | mU/min every 30 minutes, until | | | | | | | adequate labor. Maximum standard | | | | | | | dose for augmentation/induction | | | | | | | = 20 mU/min. Call provider to | | | | | | | increase above 20 mU/min. Do not | | | | | | | increase above 40 mU/min. Do not | | | | | | | increase rate if there is | | | | | | | tachysystole ( > 5 contractions | | | | | | | in 10 minutes averaged over 30 | | | | | | | minutes) or concern regarding | | | | | | | tracing. For tachysystole, | | | | | | | indications or increased | | | | | | | baseline uterine tone, notify | | | | | | | provider and stop or decrease | | | | | | | oxytocin infusion per unit policy | | | | | | | until the indication has ceased. | | | | | | | Restart the infusion per policy | | | | | | | or at 50% or less of the previous | | | | | | | rate. Third Stage | | | | | | | Management/Immediate : | | | | | | | Dose 0-999 mU/min. Vaginal | | | | | | | delivery: After delivery of | | | | | | | anterior shoulder or placenta, | | | | | | | 350 mL/hr x hour, then 100 | | | | | | | mL/hr x 3.5 hours. May stop after | | | | | | | 4 hours post-delivery. Titrate | | | | | | | to control bleeding. May | | | | | | | discontinue if fundus firm, | | | | | | | bladder not distended and patient | | | | | | | tolerating oral fluids and pain | | | | | | | meds. delivery: | | | | | | | Anesthesia will manage oxytocin | | | | | | | intraoperatively. Post anesthesia | | | | | | | care, 350 mL/hr x hour, then | | | | | | | 100 mL/hr x 3.5 hours. May stop | | | | | | | after 4 hours post-delivery. | | | | | | | Titrate to control bleeding. May | | | | | | | discontinue if fundus firm, | | | | | | | bladder not distended and patient | | | | | | | tolerating oral fluids and pain | | | | | | | meds., Use oxytocin for | | | | | | | management of: Third stage, Labor | | | | | | | and Delivery | | | | | | + + + + +---------+---+ + + + +---------+---+ | Rate/Dose Change | 10/30/20 | 6 | 6 mL/hr | | | | 17 9:24 | yuridia-un | | | | | AM PDT | its/min | | | + + + +---------+---+ | Rate/Dose Change | 10/30/20 | 4 | 4 mL/hr | | | | 17 8:44 | yuridia-un | | | | | AM PDT | its/min | | | + + + +---------+---+ + +---+ | | | + +---+ | pramoxine (PROCTOFOAM) 1% foam | | | Topical, 3 TIMES DAILY PRN, | | | Itching, Hemorrhoids, Starting | | | Sat09/23/17 at 1609, | | + +---+ | | | + +---+ + +-------+ + +---+---+ | 27-0.8 mg multivitamin | Given | 09/26/20 | 1 tablet | | | | 1 tablet 1 tablet, Oral, DAILY, | | 17 8:43 | | | | | First dose on Sat09/23/17 at | | AM PDT | | | | | 1630, | | | | | | + +-------+ + +---+---+ +-------+ + +---+---+ | Given | 09/25/20 | 1 tablet | | | | | 17 8:18 | | | | | | AM PDT | | | | +-------+ + +---+---+ | Given | 09/24/20 | 1 tablet | | | | | 17 10:36 | | | | | | AM PDT | | | | +-------+ + +---+---+ +---+---+ | | | +---+---+ + +-------+ +-------+---+---+ | sertraline (ZOLOFT) tablet 25 | Given | 09/26/20 | 25 mg | | | | mg 25 mg, Oral, DAILY, First | | 17 8:43 | | | | | dose on Sat09/25/17 at 1330 | | AM PDT | | | | + +-------+ +-------+---+---+ +-------+ +-------+---+---+ | Given | 09/25/20 | 25 mg | | | | | 17 2:24 | | | | | | PM PDT | | | | +-------+ +-------+---+---+ + +---+ | | | + +---+ | sodium phosphate (FLEET) enema | | | 133 mL 133 mL, Rectal, DAILY | | | PRN, Constipation, Starting Mon | | | 09/23/17 at 1609, | | + +---+ | | | + +---+ + +-------+ +--------+---+---+ | hunter COOL) pads 1 each | Given | 09/24/20 | 1 each | | | | 1 each, Topical, EVERY 1 HOUR | | 17 4:38 | | | | | PRN, Discomfort, Starting Mon | | AM PDT | | | | | 09/23/17 at 1609, | | | | | | + +-------+ +--------+---+---+ +---+---+ | | | +---+---+ documented in this encounter
--- OUTSIDE RECORDS SUMMARY | ~2020-09-05 | XMS | Encounter Summary ---
Demographics + + + | Address | [address] [facility] [address] [facility] | | | [place] [address] | + + + | Home Phone [...] Author + + + | Author | [facility] | | | and [place] | + + + | Organization | [facility] | | | [...] | | | | | [place] [address] | | + + + + + | Concha Paulino | ECON | [address] | | | | | [place] [address] | | + + + + + Care Team Providers + +------+ + | Care Opener Verifier Packer Customs Name | Role | Phone | + +------+ + | Kurt Campbell DO | PCP | | + +------+ + Reason for Visit + + + | Reason | Comments | + + + | Flank Pain | | + + + Encounter Details +--------+ + + + + | Date | Type | Department | Care Team | Description | +--------+ + + + + | 01/17/ | Emergency | [facility] | Don Woods | Mindy | | 2019 | | [facility] | Ho Magallanes MD | (Primary Dx) | | | | CENTER [address] | [address] | | | | | [place] | [place] | | | | | [address] | [address] | | | | | [phone] | | | +--------+ + + + [...] + + + | Blood Pressure | 128/80 | 01/17/2020 11:50 AM | | | | | PST | | + + + + + | Pulse | 90 | 01/17/2020 11:50 AM | | | | | PST | | + + + + + | Temperature | 36.8 C (98.3 F) | 01/17/2020 8:19 AM | | | | | PST | | + + + + + | Respiratory Rate | 16 | 01/17/2020 8:19 AM | | | | | PST | | + + + + + | Oxygen Saturation | 100% | 01/17/2020 11:50 AM | | | | | PST | | + + + + + | Inhaled Oxygen | - | - | | | Concentration | | | | + + + + + | Weight | 47.6 kg (105 lb) | 01/17/2020 8:19 AM | | | | | PST | | + + + + + | Height | 157.5 cm (5' 2") | 01/17/2020 8:19 AM | | | | | PST | | + + + + + | Body Mass Index | 19.2 | 01/17/2020 8:19 AM | | | | | PST [...] as of this encounter Discharge Instructions Instructions Don Woods MD - 01/17/2020For severe worsening symptoms, fev er flank pain or nausea vomiting. Please follow-up with your primary care physician. Plebreann raya follow-up with your primary care physician if symptoms worsen. documented in this encounter Medications at Time [...] into | 18 g | 0 | 06/18/20 | | | HFA) 90 mcg/puff | the lungs every 6 | | | 19 | 0 | | inhalerIndications: | hours [...] (OMNICEF) | Take 1 capsule by | 14 | 0 | 01/17/20 | | | 300 mg capsule | mouth 2 times daily. | capsule | | 20 | 0 | + + + +---------+ + + [...] + + +---------+ + + | | Take 1 tablet by | | 0 | | | | norethindrone-ethiny | mouth Daily. | | | | 0 | | l estradiol | | | | | | | (JINTELI) 1 mg-5 mcg | | | | | | | TABS | | | | | | + [...] documented as of this encounter ED Notes Don Woods MD - 01/17/2020 11:23 AM PSTFormatting of this note might be d ifferent from the original. [facility] Renny Aceves [facility] EMERGENCY DEPARTMENT ENCOUNTER NOTE [address] [place] [address] PCP:Kurt Campbell DO [phone] EMERGENCY DEPARTMENT ENCOUNTER CHIEF COMPLAINT Chief Complaint Patient presents with Flank Pain TRIAGE ED Triage Notes, ED Triage Notes Gabrielladanay Jesus RN 01/17/2020 08:24 Pt presents to the ED from home with complaints of 7/10 right sided flank pain that began y esterday. She has some occasional nausea. Denies dysuria, vomiting or diarrhea. No fever or chills LMP: 2 weeks ago Original note by Gabriella Jesus RN at 01/17/2020 08:22 Gabriella Jesus RN 01/17/2020 08:22 Pt presents to the ED from home with complaints of 7/10 right sided flank pain that began y esterday. She has some occasional nausea. Denies dysuria, vomiting or diarrhea. LMP: 2 weeks ago Addendum to note by Gabriella Jesus RN at 01/17/2020 08:24 HPI Renny Saravia is a 19 y.o. female who presents With significant right-sided flank pain pain has increased since yesterday she woke up with severe right-sided flank pain with a 9-10. She denies any matting but does have some nause a. She denies any fever or chills at this time. She is here for further evaluation. PAST MEDICAL AND SURGICAL HISTORY I did review the patient's past medical and surgical history. The patient has a past medica l history of Abdominal pain, Adverse food reaction, Allergic rhinitis, Anaphylaxis, Anemia, Anxiety, Arthralgia, Asthma, Blood in stool, Chest pain, Depression, Environmental allergies , History of pneumonia, Hypotension, Kidney cysts, Migraine, OCD (obsessive compulsive disor jesus), Oppositional defiant disorder, and Substance abuse (HCC). The patient has a past surgi jose history that includes Dental surgery; Colonoscopy; Upper gastrointestinal endoscopy; and Colonoscopy (N/A, 05/27/2019). Family and Social History I did review the patient's family and social history. The patient's family history includes Alcohol abuse in her maternal grandfather; Arthritis in her maternal grandfather, maternal grandmother, and paternal grandmother; Asthma in her father and mother; Bipolar disorder in her mother; Breast cancer in her paternal grandmother; COPD in her maternal grandmother, mot her, and paternal grandfather; Cancer in her maternal aunt, maternal grandfather, and patern al grandfather; Cardiomyopathy in an other family member; Colon cancer (age of onset: 42) in her father; Depression in her father, maternal grandmother, and mother; Diabetes in her pat alfonso grandmother; Early in her sister; Emphysema in [...] grandmother; Other (see commen t) in her father; Other (see comment) (age of onset: 47) in her maternal grandfather; Pulmon rhoda embolism in her maternal grandmother; Stroke in her maternal grandmother. The patient re ports that she quit smoking about 3 years ago. She has a 3.00 pack-year smoking history. She uses smokeless tobacco. She reports previous alcohol use of about 5.0 standard drinks of al cohol per week. She reports previous drug use. Drug: Marijuana. 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 albuterol (PROAIR HFA) 90 mcg/puff inhaler Inhale 2 puffs into the lungs every 6 hours as needed for Wheezing or Shortness of Breath. (Patient not taking: Reported on 12/17/2019) albuterol 2.5 mg/3 mL nebulizer solution Take 3 mLs by nebulization every 4 hours as ne eded for Wheezing or Shortness of Breath. (Patient not taking: Reported on 12/17/2019) buPROPion (WELLBUTRIN XL) 150 mg 24 hr tablet Take 1 tablet by mouth Daily. (Patient no t taking: Reported on 12/17/2019) dicyclomine (BENTYL) 10 mg capsule Take 1 capsule by mouth every 6 hours as needed. (Itz michelle not taking: Reported on 12/17/2019) diphenhydrAMINE (BENADRYL) 25 mg tablet Take 25 mg by mouth every 6 hours as needed for Itching. EPINEPHrine auto-injector 0.3 mg/0.3 mL injection Inject 0.3 mLs into the muscle as nee ded for Anaphylaxis. (Patient not taking: Reported on 12/17/2019) FLOVENT HFA 44 MCG/ACT inhaler Inhale 2 puffs into the lungs Daily. (Patient not taking : Reported on 12/17/2019) Loratadine (CLARITIN) 10 MG CAPS Take 1 capsule by mouth as needed. LORazepam (ATIVAN) 0.5 mg tablet Take 0.5-1 tablets by mouth every 6 hours as needed fo r Anxiety (flying). (Patient not taking: Reported on 12/17/2019) meclizine (ANTIVERT) 25 mg tablet take 1 to 2 tablets by mouth if needed for VERTIGO MISC NATURAL PRODUCTS PO Take by mouth. Parris's Mints. Natural CBD 5-10 mg as needed fo r headaches norethindrone-ethinyl estradiol (JINTELI) 1 mg-5 mcg TABS Take 1 tablet by mouth Daily. ondansetron (ZOFRAN ODT) 4 mg disintegrating tablet as needed. raNITIdine (ZANTAC) 150 MG capsule Take 1 capsule by mouth 2 times daily. (Patient not taking: Reported on 12/17/2019) traZODone (DESYREL) 50 mg tablet Take 50 mg by mouth as needed. Allergies Allergies Allergen Reactions Rey Flavor Hives Effexor [Venlafaxine] Anaphylaxis Nystatin Swelling Omeprazole Shortness Of Breath Penicillins Hives and Nausea And Vomiting Sulfa Antibiotics Shortness Of Breath Aspirin Other (See Comments) fever Fish Oil Unknown Whooping cough injection/ extreme reaction Macrobid [Nitrofuran Derivatives] Nausea And Vomiting Penicillins Unknown REVIEW OF SYSTEMS Please see HPI, All systems negative except as marked. Twelve point review of system comp leted my me. PHYSICAL EXAM VITAL SIGNS: Temp: 36.8 C (98.3 F) Pulse: 100 Resp: 16 SpO2: 100 % BP: 131/85 Constitutional: Well developed, Well nourished, Non-toxic appearance. HENT: Normocephalic, Atraumatic, Bilateral external ears normal, Oropharynx moist, No oral exudates, Nose normal. Neck- Normal range of motion, No tenderness, Supple, No stridor. Eyes: PERRL, EOMI, Conjunctiva normal, No discharge. Respiratory: Normal breath sounds, No respiratory distress, No wheezing, No chest tenderne ss. Cardiovascular: Normal heart rate, Normal rhythm, No murmurs, No rubs, No gallops. GI: Bowel sounds normal, Soft, No tenderness, No masses, No pulsatile masses. : defered Musculoskeletal: Intact distal pulses, No edema, No tenderness, No cyanosis, No clubbing. Good range of motion in all major joints. No tenderness to palpation or major deformities no kira. Back:-Significant right-sided CVA tenderness to palpation. Neurologic: Alert & oriented x 3, Normal motor function, Normal sensory function, No focal deficits noted, no facial assymetry noted. Equal cloud administrator in all extremities Psychiatric: Affect normal, Judgment normal, Mood normal. RADIOLOGY Ct Renal Stone Wo Contrast Result Date: 01/17/2020 CT ABDOMEN AND PELVIS WITHOUT CONTRAST CLINICAL INFORMATION: Flank pain, kidney stone suspe cted COMPARISON: US PELVIS W TRANSVAGINAL (05/02/2019); XR JOINT SURVEY AP 2 + JOINTS 1 VW (); ULTRASOUND APPENDIX (09/02/2013); CT ABDOMEN WITH CONTRAST (07/22/2011); CT ABDOMEN PELVIS WITH CONTRAST (08/25/2013); PROCEDURE: Axial images through the abdomen and pelvis. Mu ltiplanar reconstructions. At least one of the following CT dose optimization techniques wer e used: Automated exposure control; Adjustment of mA and/or kV according to patient size; Us e of iterative reconstruction technique. FINDINGS: LUNG BASES: Mild bronchiectasis within th e medial left lower lobe, which appears new from the prior study. No significant bronchial wall thickening. Lungs are otherwise clear. No pleural or pericardial effusion. ABDOMEN So lid organ evaluation suboptimal without contrast. Liver and Biliary: No visible abnormality in the liver or gallbladder. Pancreas, Spleen and Adrenals: Normal pancreas morphology. No s plenomegaly. No significant adrenal abnormality. Kidneys: No hydronephrosis, calculi or cont our deforming renal lesion. ABDOMEN AND PELVIS Bowel: No small bowel or colonic dilation or adjacent inflammation. Normal air-filled appendix. No appendiceal dilation or inflammation. Vessels: Abdominal aorta normal in caliber. No aneurysm. Veins not assessed without contr ast. Lymph Nodes: No adenopathy. Peritoneum and Retroperitoneum: No ascites or free air. No significant retroperitoneal abnormality. PELVIS Genitourinary: Distal ureters and bladder ap pear normal. No pelvic masses. BODY WALL Soft Tissues: No bowel or inflamed fat containing hernia, mass or hemorrhage. Bones: No acute fracture or vertebral end plate destruction. No lytic or blastic lesion. Report sent:01/17/2020 8:59:15 AM 1. No evidence of calculus within the kidneys, ureters, or bladder. No hydronephrosis. 2. No acute intra-abdominal abnormality. 3. Mild cylindrical bronchiectasis within the medial l eft lower lobe, which appears new from the prior study. No significant bronchial wall thick ening. This is nonspecific, commonly idiopathic but also may be related to remote recurrent infections or aspiration. Signed by: Frederick Sanz Robert Sign Date/Time: 01/17/2020 8:59 AM LAB Labs Reviewed URINALYSIS WITH MICROSCOPIC - Abnormal; Notable for the following components: Result Value Clarity Hazy (*) Protein, Urine 100 mg/dL (*) Blood, Urine Large (*) Nitrite, Urine Positive (*) Leukocyte Esterase, Urine Large (*) WBC UA >100 (*) WBC CLUMPS UA Few (*) RBC UA 50-100 (*) SQUAMOUS EPITHELIAL UA >100 (*) BACTERIA UA 1+ (*) MUCUS UA Present (*) All other components within normal limits CBC WITH DIFFERENTIAL - Abnormal; Notable for the following components: WBC 12.2 (*) % Lymphocytes 15.4 (*) Absolute Neutrophils 9.08 (*) Absolute Monocytes 1.02 (*) Absolute Immature Granulocytes 0.05 (*) All other components within normal limits Narrative: IMMATURE GRANULOCYTES - For patients, use the following reference ranges: Trim. Absolute (K/uL) Percentage (%) 1st 0.003-0.091 K/uL 0.0-0.9% 2nd 0.007-0.247 K/uL 0.1-2.0% 3rd 0.018-0.456 K/uL 0.1-2.0% COMPREHENSIVE METABOLIC PANEL - Abnormal; Notable for the following components: BUN 8 (*) All other components within normal limits LIPASE - Normal POCT TEST, URINE, QUAL ED COURSE & MEDICAL DECISION MAKING Pertinent Labs & Imaging studies reviewed. (See chart for details) Nursing notes reviewed. CT does not show sign of a kidney stone. She does show with her urine significant signs of urinary tract infection. I am starting her on Omnicef for infection in her urine this most likely is causing some pain to her kidney. She is otherwise hemodynamically stable. She i s encouraged to return for servicing symptoms. At this point patient is otherwise stable. New Prescriptions CEFDINIR (OMNICEF) 300 MG CAPSULE Take 1 capsule by mouth 2 times daily. CYCLOBENZAPRINE (FLEXERIL) 10 MG TABLET Take 1 tablet by mouth 3 times daily as needed for Muscle spasms. ONDANSETRON (ZOFRAN ODT) 4 MG DISINTEGRATING TABLET Take 1 tablet by mouth every 6 hour s as needed for Nausea. Discharge Instructions For severe worsening symptoms, fever flank pain or nausea vomiting. Please follow-up with your primary care physician. Please follow-up with your primary care physician if symptoms worsen. FINAL IMPRESSION 1. Pyelonephritis Acute Portions of this chart may have been created with [employer] voice recognition software. Occasi onal wrong-word or sound-alike substitutions may have occurred due to the inherent gonsalez itations of voice recognition software. Please read the chart carefully and recognize, using context, where these substitutions have occurred Don Woods MD 01/17/20 1126 Blanquita Haywood RN - 01/17/2020 8:21 AM Malorie presents to the ED from home with complaints of 7/10 right sided flank pain that began yesterday. She has some occasional nausea. Denies dysuria, vomiting or diarrhea. No fever or chills LMP: 2 weeks ago Nicole mented in this encounter Plan of [...] | | | | | | [place] [address] | | | | | | [phone] | | | | | | | | +--------+ + + + + | 09/22/ | Office | Physical Medicine | Gonzalo Merchant, | | | 2019 | Visit | and Rehabilitation | [address] | | | | | | [place], [place] | | | | | | [address] | | | | | | | | +--------+ + + + + | 09/29/ | Virtual | Pain Medicine | Peggy Arreola | | 2019 | Office | | [address] | | | | Visit | | [address] | | | | | | [place], | | | | | | [place] [address] | | | | | | [phone] | | | | | | | | +--------+ + + + + | 01/24/ | Office | Family Medicine | Kurt Campbell, | | | 2020 | Visit | | DO [address] | | | | | | [place] | | | | | | [address] | | | | | | | | +--------+ + + + + documented as of this encounter Procedures + +--------+ + + + | Procedure Name | Priori | Date/Time | Associated Diagnosis | Comments | | | ty | | | | + +--------+ + + + | CBC WITH | STAT | 01/17/2020 | | Results for this | | DIFFERENTIAL | | 8:50 AM | | procedure are in the | | | | PST | | results section. | + +--------+ + + + | LIPASE | STAT | 01/17/2020 | | Results for this | | | | 8:50 AM | | procedure are in the | | | | PST | | results section. | + +--------+ + + + | COMPREHENSIVE | STAT | 01/17/2020 | | Results for this | | METABOLIC PANEL | | 8:50 AM | | procedure are in the | | | | PST | | results section. | + +--------+ + + + | CT RENAL STONE WO | STAT | 01/17/2020 | | Results for this | | CONTRAST | | 8:46 AM | | procedure are in the | | | | PST | | results section. | + +--------+ + + + | URINALYSIS WITH | Routin | 01/17/2020 | | Results for this | | MICROSCOPIC | e | 8:24 AM | | procedure are in the | | | | PST | | results section. | + +--------+ + + + | POCT TEST, | STAT | 01/17/2020 | | Results for this | | URINE, QUAL | | 8:24 AM | | procedure are in the | | | | PST | | results section. | + +--------+ + + + | C. TRACHOMATIS AND | STAT | 01/17/2020 | | Results for this | | N. GONORRHOEAE, NAAT | | 8:24 AM | | procedure are in the | | (APTIMA) | | PST | | results section. | + +--------+ + + + documented in this encounter Results Lipase (01/17/2020 8:50 AM PST) + + + + + + | Component | Value | Ref Range | Performed | Pathologist | | | | | At | Signature | + + + + + + | Lipase | 40Comment: New method in | 12 - 53 U/L | [facility] | | | | use as of January 21, | | [facility] | | | | 2019. Check reference [...] + | [facility] | [address] | [place] | [phone] | | [facility] | | [address] | | | - LABORATORY | | | | + + + + + Comprehensive Metabolic Panel (01/17/2020 8:50 AM PST) + + + + + + | Component | Value | Ref Range | Performed | Pathologist | | | | | At | Signature | + + + + + + | Na | 142 | 136 - 145 | [facility] | | | | | mmol/L | [facility] | | | | | | MEDICAL | | | | | | CENTER - | | | | | | LABORATORY | | + + + + + + | K | 3.8 | 3.4 - 5.1 | [facility] | | | | | mmol/L | [facility] | | | | [...] + + + + | Glucose | 89 | 60 - 106 mg/dL | [facility] [...] + + + + | Creatinine | 0.98 | 0.55 - 1.02 | [facility] | [...] mL/min/1.73m2 | [facility] | | | [place] | RATE,ESTIMATED | | MEDICAL | | | | mL/min/1.46b5Nior than | | CENTER - | | [...] + + + + | Calcium | 9.9 | 8.7 - 10.4 | [facility] | | | | | mg/dL | [facility] | | | | | | MEDICAL | | | | | | CENTER - | | | | | | LABORATORY | | + + + + + + | Albumin | 4.6 | 3.2 - 4.8 g/dL | [facility] | | | | | | [facility] | | | | | | MEDICAL | | | | | | CENTER - | | | | | | LABORATORY | | + + + + + + | Bilirubin | 0.5 | 0.3 - 1.2 mg/dL | [facility] | | | Total | | | [facility] | | | | | | MEDICAL | | | | | | CENTER - | | | | | | LABORATORY | | + + + + + + | Total | 7.3 | 5.7 - 8.2 g/dL | [facility] | | | Protein | | | [facility] | | | | | | MEDICAL | | | | | | CENTER - | | | | | | LABORATORY | | + + + + + + | AST | 23 | 0 - 34 U/L | [facility] | | | | | | [facility] | | | | | | MEDICAL | | | | | | CENTER - | | | | | | LABORATORY | | + + + + + + | ALT | 28 | 10 - 49 U/L | [facility] | | | | | | [facility] | | | | | | MEDICAL | | | | | | CENTER - | | | | | | LABORATORY | | + + + + + + | Alkaline | 68 | 46 - 116 U/L | [facility] | | | Phosphatase | | | [facility] | | | | | | MEDICAL | | | | | | CENTER - | | | | | | LABORATORY | | + + + + + + | Globulin | 2.7 | 2.1 - 3.8 g/dL | [facility] | | | | | | [facility] | | | | | | MEDICAL | | | | | | CENTER - | | | | | | LABORATORY | | + + + + + + | Albumin/Angelica | 1.7 | 0.8 - 1.9 | [facility] | | | bulin Ratio | | | [facility] | | | | | | MEDICAL | | | | | | CENTER - | | | | | | LABORATORY | | + + + + + + | BUN/Creatin | 8.2 | | [facility] | | | ine [...] ST. | [address] | [place] | [phone] | | [facility] | | [address] | | | - LABORATORY | | | | + + + + + CBC with Differential (01/17/2020 8:50 AM PST) + + + + + + | Component | Value | Ref Range | Performed | Pathologist | | | | | At | Signature | + + + + + + | White Blood | 12.2 (H) | 4.0 - 11.0 K/uL | [facility] | | | Cells | | | [facility] | | | | | | MEDICAL | | | | | | CENTER - | | | | | | LABORATORY | | + + + + + + | Red Blood | 4.78 | 3.70 - 5.20 | [facility] | [...] + + + + | MCV | 91.2 | 83.0 - 101.0 fL | [facility] | | | | | | [facility] | | | | | | MEDICAL | | | | | | CENTER - | | | | | | LABORATORY | | + + + + + + | MCH | 31.0 | 28.0 - 35.0 pg | [facility] | | | | | | [facility] | | | | | | MEDICAL | | | | | | CENTER - | | | | | | LABORATORY | | + + + + + + | MCHC | 33.9 | 32.0 - 36.0 | [facility] | [...] + + + + | RDW-SD | 41.8 | 35.1 - 46.3 fL | [facility] | | | | | | [facility] | | | [facility] | | MEDICAL | | | | | | CENTER - | | | | | | LABORATORY | | + + + + + + | Platelet | 420 | 140 - 440 K/uL | [facility] | | | Count | | | [facility] | | | | | | MEDICAL | | | | | | CENTER - | | | | | | LABORATORY | | + + + + + + | MPV | 9.4 | 6.5 - 12.4 fL | [facility] | | | | | | [facility] | | | | | | MEDICAL | | | | | | CENTER - | | | | | | LABORATORY | | + + + + + + | % | 74.2 | 45.0 - 82.0 % | [facility] | | | Neutrophils | | | [facility] | | | | | | MEDICAL | | | | | | CENTER - | | | | | | LABORATORY | | + + + + + + | % | 15.4 (L) | 20.0 - 45.0 % | [facility] | | | Lymphocytes | | | [facility] | | | | | | MEDICAL | | | | | | CENTER - | | | | | | LABORATORY | | + + + + + + | % Monocytes | 8.3 | 4.0 - 12.0 % | [facility] | | | | | | [facility] | | | | | | MEDICAL | | | | | | CENTER - | | | | | | LABORATORY | | + + + + + + | % | 1.3 | 0.0 - 5.0 % | [facility] [...] + + + + | Absolute | 9.08 (H) | 1.80 - 8.50 | [facility] | | | Neutrophils | | K/uL | [facility] | | | | | | MEDICAL | | | | | | CENTER - | | | | | | LABORATORY | | + + + + + + | Absolute | 1.88 | 0.60 - 3.20 | [facility] | | | Lymphocytes | | K/uL | [facility] | | | | | | MEDICAL | | | | | | CENTER - | | | | | | LABORATORY | | + + + + + + | Absolute | 1.02 (H) | 0.00 - 1.00 | [facility] | | | Monocytes | | K/uL | [facility] | | | | | | MEDICAL | | | | | | CENTER - | | | | | | LABORATORY | | + + + + + + | Absolute | 0.16 | 0.00 - 0.40 | [facility] | | | Eosinophils | | K/uL | [facility] | | | | | | MEDICAL | | | | | | CENTER - | | | | | | LABORATORY | | + + + + + + | Absolute | 0.05 | 0.00 - 0.10 | [facility] | | | Basophils | | K/uL | [facility] | | | | | | MEDICAL | | | | | | CENTER - | | | | | | LABORATORY | | + + + + + + | Absolute | 0.05 (H)Comment: For | 0.00 - 0.03 | [facility] [...] ranges: Trim. Absolute (K/uL) Percentage (%) | [facility] | | 1st 0.003-0.091 K/uL 0.0-0.9% 2nd 0.007-0.247 K/uL | [facility] | | 0.1-2.0% 3rd 0.018-0.456 K/uL 0.1-2.0% | - LABORATORY | + + + + + + + + | Performing | Address | City/State/Zipcode | Phone Number | | Organization | | | | + + + + + | [facility] | [address] | [place] | [phone] | | [facility] | | [address] | | | - LABORATORY | | | | + + + + + CT Renal Stone Wo Contrast (01/17/2020 8:46 AM PST) + + | Specimen | + + | | + + + + + | Narrative | Performed At | + + + | CT RENAL STONE WO CONTRAST 01/17/2020 8:45 AM HISTORY: Flank | [facility] | | pain, kidney stone suspected. COMPARISON: Multiple priors, | | | including CTA of the chest dated 02/14/2018. PROTOCOL: Axial images | | | of the abdomen and pelvis were obtained. Coronal and sagittal | | | reformations were acquired. FINDINGS: LUNG BASES: Mild | | | bronchiectasis within the medial left lower lobe, which appears new | | | from the prior study. No significant bronchial wall thickening. | | | Lungs are otherwise clear. No pleural or pericardial effusion. | | | ABDOMEN Solid organ evaluation suboptimal without contrast. Liver | | | and Biliary: No visible abnormality in the liver or gallbladder. | | | Pancreas, Spleen and Adrenals: Normal pancreas morphology. No | | | splenomegaly. No significant adrenal abnormality. Kidneys: No | | | hydronephrosis, calculi or contour deforming renal lesion. ABDOMEN | | | AND PELVIS Bowel: No small bowel or colonic dilation or adjacent | | | inflammation. Normal air-filled appendix. No appendiceal dilation | | | or inflammation. Vessels: Abdominal aorta normal in caliber. No | | | aneurysm. Veins not assessed without contrast. Lymph Nodes: No | | | adenopathy. Peritoneum and Retroperitoneum: No ascites or free air. | | | No significant retroperitoneal abnormality. PELVIS | | | Genitourinary: Distal ureters and bladder appear normal. No pelvic | | | masses. BODY WALL Soft Tissues: No bowel or inflamed fat | | | containing hernia, mass or hemorrhage. Bones: No acute fracture or | | | vertebral end plate destruction. No lytic or blastic lesion. | | | IMPRESSION- 1. No evidence of calculus within the kidneys, ureters, | | | or bladder. No hydronephrosis. 2. No acute intra-abdominal | | | abnormality. 3. Mild cylindrical bronchiectasis within the medial | | | left lower lobe, which appears new from the prior study. No | | | significant bronchial wall thickening. This is nonspecific, | | | commonly idiopathic but also may be related to remote recurrent | | | infections or aspiration. A preliminary report was sent by [facility] | | | [facility] with no significant discrepancy on 01/17/2020 8:59 AM. | | | Dictated and Signed by: Blaise Crawford MD Electronically signed: | | | 01/17/2020 3:01 PM | | + + + + + | Procedure Note | + + | Shaun, Rad Results In - 01/17/2020 3:[address] RENAL STONE WO CONTRAST 01/17/2020 | | 8:45 AMHISTORY: Flank pain, kidney stone suspected.COMPARISON: Multiple priors, | | including CTA of the chest dated 02/14/2018.PROTOCOL: Axial images of the abdomen and | | pelvis were obtained. Coronal andsagittal reformations were acquired.FINDINGS:LUNG | | BASES: Mild bronchiectasis within the medial left lower lobe,which appears new from the | | prior study. No significant bronchial wallthickening. Lungs are otherwise clear. No | | pleural or pericardialeffusion.ABDOMENSolid organ evaluation suboptimal without | | contrast.Liver and Biliary: No visible abnormality in the liver or gallbladder.Pancreas, | | Spleen and Adrenals: Normal pancreas morphology. Nosplenomegaly. No significant adrenal | | abnormality.Kidneys: No hydronephrosis, calculi or contour deforming renal | | lesion.ABDOMEN AND PELVISBowel: No small bowel or colonic dilation or adjacent | | inflammation.Normal air-filled appendix. No appendiceal dilation or | | inflammation.Vessels: Abdominal aorta normal in caliber. No aneurysm. Veins | | notassessed without contrast.Lymph Nodes: No adenopathy.Peritoneum and Retroperitoneum: | | No ascites or free air. No significantretroperitoneal abnormality.PELVISGenitourinary: | | Distal ureters and bladder appear normal. No pelvicmasses.BODY WALLSoft Tissues: No | | bowel or inflamed fat containing hernia, mass orhemorrhage.Bones: No acute fracture or | | vertebral end plate destruction. No lyticor blastic lesion.IMPRESSION- 1. No evidence of | | calculus within the kidneys, ureters, or bladder. Nohydronephrosis.2. No acute | | intra-abdominal abnormality.3. Mild cylindrical bronchiectasis within the medial left | | lower lobe,which appears new from the prior study. No significant bronchial | | wallthickening. This is nonspecific, commonly idiopathic but also may berelated to | | remote recurrent infections or aspiration.A preliminary report was sent by [facility] | | [facility] with no significant discrepancyon 01/17/2020 8:59 AM.Dictated and Signed by: | | Blaise Crawford MD Electronically signed: 01/17/2020 3:01 PM | |Vessels: Abdominal aorta normal in caliber. No aneurysm. Veins not | |assessed without contrast. | |Lymph Nodes: No adenopathy. | |Peritoneum and Retroperitoneum: No ascites or free air. No significant | |retroperitoneal abnormality. | | | |PELVIS | |Genitourinary: Distal ureters and bladder appear normal. No pelvic | |masses. | | | |BODY WALL | |Soft Tissues: No bowel or inflamed fat containing hernia, mass or | |hemorrhage. | |Bones: No acute fracture or vertebral end plate destruction. No lytic | |or blastic lesion. | | | |IMPRESSION- | |1. No evidence of calculus within the kidneys, ureters, or bladder. No | |hydronephrosis. | |2. No acute intra-abdominal abnormality. | |3. Mild cylindrical bronchiectasis within the medial left lower lobe, | |which appears new from the prior study. No significant bronchial wall | |thickening. This is nonspecific, commonly idiopathic but also may be | |related to remote recurrent infections or aspiration. | | | |A preliminary report was sent by [employer] with no significant discrepancy | |on 01/17/2020 8:59 AM. | | | |Dictated and Signed by: Blaise Crawford MD | | Electronically signed: 01/17/2020 3:01 PM | + + + +---------+ + + | Performing | Address | City/State/Zipcode | Phone Number | | Organization | | | | + +---------+ + + | [facility] | | | | + +---------+ + + C. trachomatis and N. gonorrhoeae, NAAT (APTIMA) (01/17/2020 8:24 AM PST) + + + + + + | Component | Value | Ref Range | Performed | Pathologist | | | | | At | Signature | + + + + + + | Chlamydia | Negative | Negative | REFERENCE | | | trachomatis | | | LAB [facility] | | | PCR | | | - [facility] | | + + + + + + | Neisseria | Negative | Negative | REFERENCE | | | Gonorrhoeae | | | LAB [facility] | | | DNA PCR | | | - [facility]KR | | + + + + + + + + | Specimen | + + | Tissue - Urine | | specimen (specimen) | + + + + + | Narrative | Performed At | + + + | Performed at: [address] [address], | REFERENCE LAB | | [place], [place] [id number] Building Guard Deputy Sheriff: Eros Godinez MD, Phone: | [facility] | | [phone] | | + + + + + + + + | Performing | Address | City/State/Zipcode | Phone Number | | Organization | | | | + + + + + | REFERENCE LAB | [address] | [place], [place] | [phone] | | [facility] | [address] | [address] | | + + + + + Urinalysis With Microscopic (01/17/2020 8:24 AM PST) + + + + + [...] + + + + | Specific | 1.013 | 1.001 - 1.030 | [facility] | | | [place], | | | [facility] | | [...] + + + + | Nitrite, | Positive (A) | Negative | [facility] [...] + + + | Red Blood | 50-100 (A) | 0 - 2 /HPF | [...] + | [facility] | [address] | [place] | [phone] | | [facility] | | [address] | | | - LABORATORY | | | | + + + + + POCT Test, Urine, QUAL (01/17/2020 8:24 AM PST) + + + + + + | Component | Value | Ref Range | Performed | Pathologist | | | | | At | Signature | + + + + + + | | Negative | Negative | [facility] | | | Test, | | | [facility] | | | Urine, POC | | | MEDICAL | | | | | | CENTER - | | | | | | LABORATORY | | + + + + + + | Internal QC | Acceptable | Acceptable | [facility] | | | | | | [facility] | | | | | | MEDICAL | | | | | | CENTER - | | | | | | LABORATORY | | + + + + + + | Specific | | | [facility] | | | [place], | | | [facility] | | | POC | | | MEDICAL | | | | | | CENTER - | | | | | | LABORATORY | | + + + + + + | Lot Number | [id number] | | [facility] | | | | | | [facility] | | | | | | MEDICAL | | | | | | CENTER - | | | | | | LABORATORY | | + + + + + + | Expiration | 2020-11-27 | | [facility] | | | Date | | | [facility] | | | | | | MEDICAL | | | | | | CENTER - | | | | | | LABORATORY | | + + + + + + + + | Specimen | + + | Urine | + + + + + + + | Performing | Address | City/State/Zipcode | Phone Number | | Organization | | | | + + + + + | [facility] | [address] | [place], [place] | [phone] | | [facility] | | [address] | | | - LABORATORY | | | | + + + + + documented in this encounter Visit Diagnoses + + | Diagnosis | + + | Pyelonephritis - Primary Pyelonephritis, unspecified | + + documented in this encounter Administered Medications + +--------+ +-------+------+------+ | Medication Order | MAR | Action | Dose | Rate | Site | | | Action | Date | | | | + +--------+ +-------+------+------+ | albuterol-ipratropium 2.5-0.5 | Given | 01/17/20 | 3 mLs | | | | mg/3 mL nebulizer solution 3 mL | | 20 10:53 | | | | | 3 mL, Nebulization, RT Once, Sun | | AM PST | | | | | 01/17/20 at 1045, For 1 dose | | | | | | + +--------+ +-------+------+------+ +---+---+ | | | +---+---+ + +-------+ +-------+---+---+ | ketorolac (TORADOL) injection | Given | 01/17/20 | 30 mg | | | | 30 mg 30 mg, Intravenous, ONCE, | | 20 8:50 | | | | | 01/17/20 at 0835, For 1 dose | | AM PST | | | | + +-------+ +-------+---+---+ +---+---+ | | | +---+---+ + +-------+ +------+---+---+ | ondansetron (ZOFRAN) injection | Given | 01/17/20 | 4 mg | | | | 4 mg 4 mg, Intravenous, ONCE, | | 20 8:50 | | | | | 01/17/20 at 0835, For 1 dose | | AM PST | | | | + +-------+ +------+---+---+ +---+---+ | | | +---+---+ documented in this encounter
--- OUTSIDE RECORDS SUMMARY | ~2020-09-05 | XMS | Encounter Summary ---
Demographics + + + | Address | [address] | | | [place] [address] | + + + | Home Phone [...] | | | | | [place] [address] | | + + + + + | Concha Paulino | ECON | [address] | | | | | [place] [address] | | + + + + + Care Team Providers + +------+ + | Care Mason Foreman/Superintendant Name | Role | Phone | + +------+ + | Leonid Osorio MD | PCP | | + +------+ + Reason for Visit + +--------+ + | Reason | Onset | Comments | | | Date | | + +--------+ + | Lab Results | 09/02/ | | | | 2017 | | + +--------+ + Encounter Details +--------+ + + + + | Date | Type | Department | Care Team | Description | +--------+ + + + + | 09/02/ | Telephone | [facility] | Tyson Rivera | Lab Results | | 2017 | | CARE [address] | [address] | | | | | [place] | [address] [facility] | | | | | [address] | [facility] [place] [address] | | | | | [phone] | [phone] | | | | | | | [...] this encounter Miscellaneous Notes Telephone Encounter - Tyson Rivera ARNP - 09/02/2018 1:48 PM PDTContacted pat ient with results of the culture. Advised the results are negative. Advised if she has any further issues, she could come back to be seen or follow up with her doctor.Electronically s igned by SINDI Cantu at 09/02/2018 1:50 PM PDTdocumented in this encounte r Plan [...] | | | | | [place] [address] | | | | | | [phone] | | | | | | | | +--------+ + + + + | 09/22/ | Office | Physical Medicine | Gonzalo Merchant, | | | 2019 | Visit | and Rehabilitation | [address] | | | | | | [place] | | | | | | [address] | | | | | | | | +--------+ + + + + | 09/29/ | Virtual | Pain Medicine | Peggy Arreola | | | 2019 | Office | | [address] | | | | Visit | | [place] | | | | | | [place], | | | | | | [place] [address] | | | | | | [phone] | | | | | | | | +--------+ + + + + | 01/24/ | Office | Family Medicine | Kurt Campbell, | | | 2020 | Visit | | [address] | | | | | | [place] | | | | | | [address] | | | | | | | | +--------+ + + + + documented as of this encounter Visit Diagnoses + + | Diagnosis | + + | Urinary frequency - Primary | + + documented in this encounter"
--- OUTSIDE RECORDS SUMMARY | ~2020-09-05 | XMS | Encounter Summary ---
Demographics + + + | Address | [address] | | | [place] [address] | + + + | Home Phone [...] | | | | | [place] [address] | | + + + + + | Concha Paulino | ECON | [address] | | | | | [place] [address] | | + + + + + Care Team Providers + +------+ + | Care Phone Technician Name | Role | Phone | + +------+ + | Leonid Osorio MD | PCP | | + +------+ + Encounter Details +--------+ + + + + | Date | Type | Department | Care Team | Description | +--------+ + + + + | 11/01/ | Hospital | [facility] | Gonzalo Merchant, | Adolescent | | 2015 | Encounter | MED CTR XRAY [address] | MD [address] | idiopathic scoliosis | | | | [place] | [place] | of thoracolumbar | | | | [place] [address] | [address] | region | | | | [phone] | | | +--------+ + + + [...] + + + +---------+ + + | XULANE [id number] | | | 1 | 07/14/20 | | | MCG/24HR patch | | | | 15 | 7 | + + + +---------+ + + documented as of this encounter Plan of Treatment +--------+ + + + + | Date | Type | Specialty | Care Team | Description | +--------+ + + + + | 10/14/ | Office | Cardiology | Tawana Mcdonald | | | 2019 | Visit | | GLEN Morales [address] | | | | | | [address] [place] | | | | | | [place] [address] | | | | | | [phone] | | | | | | | | +--------+ + + + + | 09/22/ | Office | Physical Medicine | Gonzalo Merchant, | | | 2019 | Visit | and Rehabilitation | [address] | | | | | | [place] | | | | | | [address] | | | | | | | | +--------+ + + + + | 09/29/ | Virtual | Pain Medicine | Peggy Arreola | | 2019 | Office | | [address] | | | | Visit | | [place] | | | | | | [place], | | | | | | [place] [address] | | | | | | [phone] | | | | | | | | +--------+ + + + + | 03/02/ | Office | Family Medicine | Kurt Campbell, | | | 2020 | Visit | | DO [address] | | | | | | [place] | | | | | | [address] | | | | | | | | +--------+ + + + + documented as of this encounter Procedures + +--------+ + + + | Procedure Name | Priori | Date/Time | Associated Diagnosis | Comments | | | ty | | | | + +--------+ + + + | XR THORACOLUMBAR | Routin | 11/01/2015 | Adolescent | Results for this | | JUNCTION 2+ VIEWS | e | 5:24 PM | idiopathic scoliosis | procedure are in the | | | | PST | of thoracolumbar | results section. | | | | | region | | + +--------+ + + + documented in this encounter Results XR Thoracolumbar Spine AP Lateral (11/01/2015 5:24 PM PST) + + | Specimen | + + | | + + + + + | Narrative | Performed At | + + + | EXAM: XR THORACOLUMBAR SPINE AP LATERAL dated 11/01/2015 4:39 PM | [facility] | | HISTORY:thoracolumbar scoliosis COMPARISON: November 08, 2014. | | | FINDINGS:4 views of the spine. There is an S-shaped scoliosis. | | | Utilizing the superior endplate of T11 and inferior endplate of L4 | | | there is approximately a 23 degree levoconvex scoliotic curvature. | | | When measuring using similar location to the prior study the | | | comparative curvature is approximately 28 degrees. There is no | | | accentuation of the thoracic kyphosis. There are no anomalous | | | vertebral bodies. There appears to be pectus excavatum, seen on the | | | lateral view of the spine. IMPRESSION - S-shaped scoliosis. | | | The primary lumbar curvature today measures approximately 23 | | | degrees which compares to 28 degrees when measured in a similar matter | | | on the prior study. Probable pectus excavatum. Dictated and | | | Signed by: Von Talley MD Electronically signed: 11/02/2015 | | | 8:55 AM | | + + + + + | Procedure Note | + + | Arnaldo Dunn Results In - 11/02/2015 8:58 AM PST EXAM: XR THORACOLUMBAR SPINE AP LATERAL | | dated 11/01/2015 4:39 PMHISTORY:thoracolumbar scoliosisCOMPARISON: November 08 | | 2013.FINDINGS:4 views of the spine. There is an S-shaped scoliosis. Utilizing | | thesuperior endplate of T11 and inferior endplate of L4 there is approximately a | | 23degree levoconvex scoliotic curvature. When measuring using similar location tothe | | prior study the comparative curvature is approximately 28 degrees. There isno | | accentuation of the thoracic kyphosis. There are no anomalous vertebralbodies. There | | appears to be pectus excavatum, seen on the lateral view of thespine.IMPRESSION | | -S-shaped scoliosis. The primary lumbar curvature today measures | | degrees which compares to 28 degrees when measured in a similar matter on theprior | | study.Probable pectus excavatum.Dictated and Signed by: Von Talley MD | | Electronically signed: 11/02/2015 8:55 AM | |spine. | | | |IMPRESSION - | | | |S-shaped scoliosis. The primary lumbar curvature today measures approximately | |23 degrees which compares to 28 degrees when measured in a similar matter on the | |prior study. | | | |Probable pectus excavatum. | | | |Dictated and Signed by: Von Talley MD | | Electronically signed: 11/02/2015 8:55 AM | + + + +---------+ + [...]
--- OUTSIDE RECORDS SUMMARY | ~2020-09-05 | XMS | Encounter Summary ---
Demographics + + + | Address | [address] | | | [place] [address] | + + + | Home Phone [...] | | | | | [place] [address] | | + + + + + | Concha Paulino | ECON | [address] | | | | | [place] [address] | | + + + + + Care Team Providers + +------+ + | Care Top Distribution Executive Name | Role | Phone | + +------+ + | Kurt Campbell DO | PCP | | + +------+ + Encounter Details +--------+ + + + + | Date | Type | Department | Care Team | Description | +--------+ + + + + | 01/28/ | Imaging | [facility] | Serjio Clark | | | 2020 | Exam | [facility] [address] | | [address] [place] | [place] | | | | | [place] [address] | [address] | | | | | [phone] | | | +--------+ + + + [...] | | | | | [place] [address] | | | | | | [phone] | | | | | | | | +--------+ + + + + | 09/22/ | Office | Physical Medicine | Gonzalo Merchant, | | | 2019 | Visit | and Rehabilitation | MD [address] | | | | | | [place] | | | | | | [address] | | | | | | | | +--------+ + + + + | 09/29/ | Virtual | Pain Medicine | Peggy Arreola | | 2019 | Office | | [address] | | | | Visit | | [place] | | | | | | [place], | | | | | | [place] [address] | | | | | | [phone] | | | | | | | | +--------+ + + + + | 01/24/ | Office | Family Medicine | Kurt Campbell, | | | 2020 | Visit | | DO [address] | | | | | | [place] | | | | | | [address] | | | | | | | [...]
--- OUTSIDE RECORDS SUMMARY | ~2020-09-05 | XMS | Encounter Summary ---
Demographics + + + | Address | [address] [facility] | | | [place] [address] | + + + | Home Phone [...] | | | | | [place] [address] | | + + + + + | Concha Zeeshanletty | ECON | [address] | | | | | [place] [address] | | + + + + + Care Team Providers + +------+ + | Care Assistant Family Teacher Name | Role | Phone | + [...] + + | Closed | Specialty | Obstetrics | Diagnoses | Demetrius, | Bello, | | | Services | and | Elevated | Tyson | Adalberto | | | Required | Gynecology | serum hCG | MD Don | Gunner | | | | | | [address] | MD Buddy | | | | | | [place] | [address] | | | | | | [place] | [place] | | | | | | [address] | [place] | | | | | | Phone: | [phone] | | | | | | [phone] | Phone: | | | | | | Fax: | [phone] | | | | | | [phone] | | +--------+ + + + + + Reason for Visit + + + | Reason | Comments | + + + | Followup Medical | | | Problem | | + + + Encounter Details +--------+ + + + + | Date | Type | Department | Care Team | Description | +--------+ + + + + | 02/16/ | Emergency | [facility] | Tyson Romo | Elevated serum hCG | | 2019 | | [facility] | MD Don [address] | (Primary Dx) | | | | CENTER [address] | [facility] | | | | | [place], [place] | [place] [address] | | | | | [address] | [phone] | | | | | [phone] | | | +--------+ + + + [...] + + + | Blood Pressure | 107/67 | 02/16/2019 7:12 PM | | | | | PDT | | + + + + + | Pulse | 79 | 02/16/2019 7:12 PM | | | | | PDT | | + + + + + | Temperature | 37.1 C (98.8 F) | 02/16/2019 7:12 PM | | | | | PDT | | + + + + + | Respiratory Rate | 18 | 02/16/2019 7:12 PM | | | | | PDT | | + + + + + | Oxygen Saturation | 97% | 02/16/2019 7:12 PM | | | | | PDT | | + + + + + | Inhaled Oxygen | - | - | | | Concentration | | | | + + + + + | Weight | 47.6 kg (105 lb) | 02/16/2019 7:12 PM | | | | | PDT | | + + + + + | Height | 157.5 cm (5' 2") | 02/16/2019 7:12 PM | | | | | PDT | | + + + + + | Body Mass Index | 19.2 | 02/16/2019 7:12 PM | | | | | PDT [...] following attachments cannot be sent through Care Everywhere.Possible Miscar cali (Threatened ) (Colombian)documented in this encounter Medications at Time of [...] documented as of this encounter ED Notes Tyson Romo MD - 02/16/2019 8:46 PM PDTFormatting of this note might be diff erent from the original. [facility] Renny Saravia Emergency Department Encounter Note [address] [place] [address] PCP:Leonid Osorio MD [phone] CHIEF COMPLAINT: Chief Complaint Patient presents with Followup Medical Problem ED Room: [address] Renny Saravia is a 19 y.o. female who presents to the Emergency Department Presents for reevaluation per return precautions from visit 3 days ago where hCG was noted to be 15 presents for repeat level and ultrasound if above threshold. No associated pain sy ncope lightheadedness vaginal bleeding or other symptoms to report. Language line hedge fund manager made available and used to collect historical details as needed. PAST MEDICAL & SURGICAL HISTORY Patient Active Problem List Diagnosis Date Noted Second hand smoke exposure 09/23/2017 Palpitation 08/10/2015 Note Last Updated: 08/10/2015 Strong Family history of SVT needing ablation Adolescent idiopathic scoliosis of thoracolumbar region 03/09/2013 Migraine CONTUSION OF TOE 03/08/2011 Past Surgical History: Procedure Laterality Date DENTAL SURGERY CURRENT MEDICATIONS Discharge Medication List as of 02/16/2019 20:48 CONTINUE these medications which have NOT CHANGED [...] VITAL SIGNS: (first vital signs):Temp: 37.1 C (98.8 F) Pulse: 79 Resp: 18 SpO2: 97 % BP : 107/67 Body mass index is 19.2 kg/m. Constitutional: Well-appearing female patient. HEENT: Atraumatic, PERRL, Oropharynx benign. [...] Serum 5 (H) 2 - 4 mIU/mL IMAGING STUDIES (X-Rays interpreted by ED Physician) ED COURSE & MEDICAL DECISION MAKING Pertinent Labs & Imaging studies were reviewed along with EMS notes and care home record s if applicable. (See chart for details) Medications and Allergy list reviewed. Nurses note and old records were reviewed The patient was seen and examined, Repeat quant shows declining hCG which is now 5. There is no clinical evidence of ectopic at this time. She is referred to SEW OUT OPERATOR for further outpatient monitoring and man agement of what appears to be a spontaneous . The patient remained hemodynamically stable without evidence of shock or malperfusion bruna g their ED course, at time of discharge patient is sitting/resting comfortably in no apparen t distress. The patient was counseled about their results and workup including all incidenta l findings and the need for out patient follow up to which they verbalized their understandi ng and were provided. The patient was counseled about the importance of medical recommendati ons today and the dangers including harm, , permanent injury, injury, morbidity, and mo rtality of non adherence to the treatment plan. They verbalize their understanding of today' s plan and agree with it. They were counseled that emergency services are available to them 24/ and to return to the ED immediately if symptoms return, persist, change, worsen or new symptoms develop. The patient was given follow up. They were given further strict, thorough, actionable return precautions to which they verbalized their understanding. The patient's q uestions were answered and the patient agreed with the plan. The patient was discharged in g ood stable condition. Last Set of Vital Signs: Temp: 37.1 C (98.8 F) Pulse: 79 Resp: 18 SpO2: 97 % BP: 107/67 FINAL IMPRESSION ICD-10-CM ICD-9-CM 1. Elevated serum hCG E34.9 259.9 Follow-up Information Tomeka Gomez DO. Call today. Specialty: Obstetrics and Gynecology Contact information: Emili Daly [facility] [address] Discharge Medication List as of 02/16/2019 20:48 Portions of this chart were created with [employer] voice recognition software. Inadvertent so und alike substitutions may be present and are unintentional Tyson Romo MD 02/17/19 0053 APhiHebert reza RN - 02/16/2019 7:10 PM PDTPatient was seen on Saturday for vaginal bleeding. Had an elevated HCG level of 15 and was told to followup today for a followup HCG level. Patilaurel t states she is still passing some blood. Filling up 5-6 pantiliners in a day.Electronicall y signed by Kylah Rea RN at 02/16/2019 7:12 PM PDTdocumented in this encounter Plan of [...] | | | | | | [place] [address] | | | | | | [phone] | | | | | | | | +--------+ + + + + | 09/22/ | Office | Physical Medicine | Gonzalo Merchant, | | | 2019 | Visit | and Rehabilitation | [address] | | | | | | [place] | | | | | | [address] | | | | | | | | +--------+ + + + + | 09/29/ | Virtual | Pain Medicine | Peggy Arreola | | 2019 | Office | | [address] | | | | Visit | | [place] | | | | | | [place], | | | | | | [place] [address] | | | | | | [phone] | | | | | | | | +--------+ + + + + | 01/24/ | Office | Family Medicine | Kurt Campbell, | | | 2020 | Visit | | DO [address] | | | | | | [place] | | | | | | [address] | | | | | | | | +--------+ + + + + + + +--------+ + + | Name | Type | Priori | Associated Diagnoses | Order Schedule | | | | ty | | | + + +--------+ + + | SEW OUT OPERATOR Women's | Outpatient | Routin | Elevated serum hCG | Ordered: 02/16/2019 | | Clinic | Referral | e | | | + + +--------+ + + documented as of this encounter Procedures + +--------+ + + + | Procedure Name | Priori | Date/Time | Associated Diagnosis | Comments | | | ty | | | | + +--------+ + + + | HCG, SERUM, QUANT | STAT | 02/16/2019 | | Results for this | | | | 7:24 PM | | procedure are in the | | | | PDT | | results section. | + +--------+ + + + documented in this encounter Results HCG, Serum, Quant (02/16/2019 7:24 PM PDT) + +-------+ + + + | Component | Value | Ref Range | Performed | Pathologist | | | | | At | Signature | + +-------+ + + + | hCG Quant, | 5 (H) | 2 - 4 mIU/mL | [facility] | | | Serum | | | [facility] | | [...] [address] | [place] | [phone] | | [facility] | | [address] | | | - LABORATORY | | | | + + + + + documented in this encounter Visit Diagnoses + + | Diagnosis | + + | Elevated serum hCG - Primary Unspecified endocrine disorder | + + documented in this encounter
--- OUTSIDE RECORDS SUMMARY | ~2020-09-05 | XMS | Encounter Summary ---
Demographics + + + | Address | [address] [facility] | | | [place] [address] | + + + | Home Phone [...] | | | | | [place] [address] | | + + + + + | Concha Paulino | ECON | [address] | | | | | [place] [address] | | + + + + + Care Team Providers + +------+ + | Care Skidder Driver Name | Role | Phone | + +------+ + | Chance Easley MD | PCP | | + +------+ + Encounter Details +--------+---------+ + + + | Date | Type | Department | Care Team | Description | +--------+---------+ + + + | 06/25/ | Office | [facility] PHYSICAL | Gonzalo Merchant, | Adolescent | | 2012 | Visit | MEDICINE | MD [address] | idiopathic scoliosis | | | | REHABIL[address] | [place] | of thoracolumbar | | | | [address] | [phone] | region (Primary Dx) | | | | [place], [place] | | | | | | [address] | | | | | | [phone] | | | +--------+---------+ + + + [...] + + + | Blood Pressure | 90/58 | 06/25/2013 9:48 AM | | | | | PDT | | + + + + + | Pulse | 70 | 06/25/2013 9:48 AM | | | | | PDT | | + + + + + | Temperature | - | - | | + + + + + | Respiratory Rate | 14 | 06/25/2013 9:48 AM | | | | | PDT | | + + + + + | Oxygen Saturation | - | - | | + + + + + | Inhaled Oxygen | - | - | | | Concentration | | | | + + + + + | Weight | 49.4 kg (109 lb) | 06/25/2013 9:48 AM | | | | | PDT | | + + + + + | Height | 154.9 cm (5' 1") | 06/25/2013 9:48 AM | | | | | PDT | | + + + + + | Body Mass Index | 20.6 | 06/25/2013 9:48 AM | | | | | PDT | | + + + + + documented in this encounter Patient Instructions Patient Instructions Gonzalo Mecrhant MD - 06/25/2013 10:26 AM PDTX-rays have been requeste d. Please go to the x-ray department several days prior to your next appointment complete t hese x-rays. The results of your x-rays will be reviewed at your next appointment. If your x-rays demonstrate any emergent results, the clinic will contact you. Please return to the clinic in November. documented in this encounter Progress Notes Gonzalo Merchant MD - 06/25/2013 10:28 AM PDTThis office note has been dictated. Job ID# [id number] signed by Gonzalo Merchant MD at 06/25/2013 2:52 PM Angelia Finch RN - 06/25/2013 9:52 AM PDTPatient has no complaints at this time. Decreased amount of h eadaches. Gonzalo Snyder MD - 06/25/2013 12:00 AM PDT PHYSICAL MEDICINE AND REHAB [address] [place] [id number] FAX: [phone] OFFICE VISIT PHYSICAL MEDICINE REHABILITATION PROGRESS NOTE CONSULT REQUESTED BY: Chance Easley MD DATE OF SERVICE: 06/25/2013 PATIENT IDENTIFICATION: A 13-year-old female with scoliosis and mid and low back pain. HISTORY OF PRESENT ILLNESS: TMs. Saravia was last seen by me 03/09/2013. At that time we reviewed that she had thoracolumbar scoliosis. She had therapy for her back. She was given home exercise program. She had a routine followup scoliosis x-ray several days ago. She ret urns to clinic today to review the results of that x-ray and continued monitoring of her sc oliosis. She indicates that back pain is relatively tolerable. The back pain is minimal. She reports that current pain level is a 0/10 on a numerical pain scale. She states that therapy was v marleni helpful in reducing her back pain. She has a home exercise program but does not do it frequently. She does her home exercise program approximately 1 day per week. She denies num bness, paresthesia or weakness. She denies difficulty breathing. She denies back pain. She sleeps comfortably at night. She has no other complaints. ALLERGIES 1. ROCHE FLAVORING. 2. NYSTATIN. 3. OMEPRAZOLE. 4. PENICILLIN. 5. SULFA. 6. ANTIBIOTICS. 7. ASPIRIN. CURRENT MEDICATIONS 1. Veramyst nasal spray. 2. Ibuprofen p.r.n. 3. Melatonin at bedtime. 4. Singulair 1 tablet daily. 5. Zoloft 25 mg 1 tablet per day. REVIEW OF SYSTEMS Ms. Saravia denies nausea, vomiting, diarrhea, constipation, fever, chills, shortness of breath, chest pain, skin breakdown, rash, incontinence of bowel or bladder, saddle anesthes ia, lymph gland swelling, or unexplained weight loss. All other review of systems negative. PHYSICAL EXAMINATION VITAL SIGNS: Heart rate 70, respiratory rate 14, blood pressure 90/58, weight 109 pounds, height 5 feet 1 inch. GENERAL: In no acute distress. Alert and oriented to person, place, time and situation. HE ENT: Extraocular muscles intact. Pupils equally reactive to light and accommodation. Sclerae clear. BACK: Slight asymmetry. On visual examination scoliosis does not appear to be significantly different than previous exam. LUNGS: Clear to auscultation bilaterally. No wheezing, no crackles. ABDOMEN: Nontender, no ndistended. Positive for bowel sounds. EXTREMITIES: Exam reveals no clubbing, cyanosis or e ivy in all 4 extremities. NEUROLOGICAL: Exam demonstrates normal strength, reflexes, and s ensation in all 4 extremities. DATABASE: Scoliosis spine x-ray study from 06/22/2013, imaging personally reviewed by me. Imaging demonstrates 18 degrees of levoscoliosis centered at L2. This is a very slight incr ease from 15 degrees of levoscoliosis centered at L2 from x-ray performed approximately 7 m onths ago. ASSESSMENT ADOLESCENT IDIOPATHIC SCOLIOSIS OF THE THORACOLUMBAR SPINE - 18 DEGREES AT L2, ICD-9 737.30 . PLAN: Ms. Saravia is doing well at this time. Her pain is resolved. She is not doing her home exercise program as often as she should. She was admonished to do home exercise progr am on a daily basis. We discussed that there is slight progression in her scoliosis. She wa s encouraged to maintain optimal posture at all times, including while seated. She is encou raged to be cognizant of her posturing and position when in a seated position or using a ch air. For individuals that have scoliosis ranging from 20 to 40 degrees, TLSO bracing may be used . For those individuals with scoliosis less than 20 degrees, simple monitoring and exercise s are generally used. For those individuals with scoliosis greater than 40 degrees, surgica l intervention is usually requested. While she has had some progression of her scoliosis, s he is still less than 20 degrees. Unfortunately, she is only age 13. She indicates that she started menstruation approximately 1 year ago. We anticipate that she may have significant amount of growth ahead of her. We discussed that scoliosis generally will continue to prog ress during growing years. We discussed that it will likely stabilize once she is finished growing. We discussed that we will anticipate continued monitoring of her scoliosis. She wi ll have repeat x- ray of the spine in 6 months' time. She will return to the clinic a few d ays after her x-rays are completed once again to monitor her scoliosis. If it has progresse d at that point beyond 20 degrees, we will discuss need for a TLSO bracing. Approximately 30 minutes was spent [id number] today with Ms. Saravia, over half of whic h was spent formulating and discussing her medical treatment plan. Thank you for allowing me to be involved in the care of your patient. If you have any quest ions regarding the care of Ms. Saravia, please do not hesitate to call. Gonzalo Merchant Jr, MD GEM / PAP JOB #: [id number] cc: MD Ming Gordon MD documented in this encounter Plan of [...] | | | | | | [place] [address] | | | | | | [phone] | | | | | | | | +--------+ + + + + | 09/22/ | Office | Physical Medicine | Gonzalo Merchant, | | | 2019 | Visit | and Rehabilitation | [address] | | | | | | [place] | | | | | | [address] | | | | | | | | +--------+ + + + + | 09/29/ | Virtual | Pain Medicine | Peggy Arreola | | 2019 | Office | | [address] | | | | Visit | | [place] | | | | | | [place], | | | | | | [place] [address] | | | | | | [phone] | | | | | | | | +--------+ + + + + | 01/24/ | Office | Family Medicine | Adrian Kurt High, | | | 2020 | Visit | | DO [address] | | | | | | [place] | | | | | | [address] | | | | | | | | +--------+ + + + + + +---------+--------+ + + | Name | Type | Priori | Associated Diagnoses | Order Schedule | | | | ty | | | + +---------+--------+ + + | XR Scoliosis | Imaging | Routin | Adolescent | Expected: | | Standing | | e | idiopathic scoliosis | 10/26/2013, Expires: | | | | | of thoracolumbar | 06/25/2014 | | | | | region | | + +---------+--------+ + + documented as of this encounter Visit Diagnoses + + | Diagnosis | + + | Adolescent idiopathic scoliosis of thoracolumbar region - Primary Scoliosis (and | | kyphoscoliosis), idiopathic | + + documented in this encounter
--- OUTSIDE RECORDS SUMMARY | ~2020-09-05 | XMS | Encounter Summary ---
Demographics + + + | Address | [address] [facility] | | | [place] [address] | + + + | Home Phone [...] | | | | | [place] [address] | | + + + + + | Concha Paulino | ECON | [address] | | | | | [place] [address] | | + + + + + Care Team Providers + +------+ + | Care On Call Name | Role | Phone | + [...] | | | neoplasms, | | [place] [address] | | | | | colon | | Phone: | | | | | Family hx of | | [phone] | | | | | colon | | Fax: | | | | | cancer | | [phone] | | | | | Procedures | | | | | | | [place] | | | | | | | COLONOSCOPY | | | | | | | FLX DX | | | | | | | W/COLLJ SPEC | | | | | | | WHEN PFRMD | | | | | | | [place] | | | | | | | COLONOSCOPY | | | | | | | W/BIOPSY | | | | | | | SINGLE/MULTI | | | | | | | PLE [place] | | | | | | | [...] Description | +--------+---------+ + + + | 05/27/ | Surgery | [facility] | Kanu Quiñones | COLONOSCOPY | | 2019 | | MED CTR MP INTRA OP | MD Charles [address] | | | | | [address] | [address] [facility] | | | | | [place], [place] | [place] [address] | | | | | [address] | [phone] | | | | | [phone] | | | +--------+---------+ + + + [...] You can't be awakened Date Last Reviewed: 09/11/201619998548-6835 [employer]. [address] [place] [address], [place] [address]. All righ ts reserved. This information is [...] for a few hours. Date Last Reviewed: 09/25/201619996602-6043 [employer]. [address] [place] [address]. All righ ts reserved. This information is [...] by | 60 vial | 0 | 04/08/20 | | | mL nebulizer | nebulization [...] Class 2 (upper half of tonsil fossa) [place] [employer] Anest[employer] Grade:ASA 2 - A [...] Electronically Signed by: Kanu Quiñones MD 05/27/2019 [facility] VERIFICATION OF CONSENT (PARQ) The patient was counseled regarding the procedure, its indications, risks, potential compli cations and alternatives. Any questions were answered. Consent was obtained. Kanu Quiñones MD, 05/27/2019 9:24 [facility] Portions of this chart may have been created with [employer] voice recognition software. Occasi onal wrong-word or [...] Exams Patient: Renny Saravia : 2000 Acct: [id number] Exam Date: Monday, May 27, 2019 Doctor: [...] If unable to reach your physician, call [facility] Emergency Department at Ext. 2500 Your doctor [...] | | | | | [place] [address] | | | | | | [phone] | | | | | | | | +--------+ + + + + | 09/22/ | Office | Physical Medicine | Gonzalo Merchant, | | | 2019 | Visit | and Rehabilitation | MD Dane Johnson | | | | | | [place] | | | | | | [id number] | | | | | | | | +--------+ + + + + | 09/29/ | Virtual | Pain Medicine | Peggy Arreola | | | 2019 | Office | | [address] | | | | Visit | | [place] | | | | | | [place] | | | | | | [place] [address] | | | | | | [phone] | | | | | | | | +--------+ + + + + | 01/24/ | Office | Family Medicine | Kurt Campbell, | | | 2020 | Visit | | DO [address] | | | | | | [place] | | | | | | [address] | | | | | | | [...] | [facility] | | GastroenterologyPatient Name: Renny SaraviaProcedure Date: 05/27/2019 | PROVATION | | 9:17 AMMRN: [id number] #: [id number] of : | | | 2000Admit Type: [...] Laurie Hamm RN, | | | Norma Fortune, TechnicianReferring MD: Kurt Campbell, DO | | [...] evaluated | | | using the BBPS (Colony Bowel Preparation Scale) with scores of: | [...] | | 9:40:15 AMScope Out: 9:52:27 AM [facility] | | | [place], [address] [place] [address] | | |Recommendation: | | | - [...] |Scope Out: 9:52:27 AM | | | [facility], [address] [facility], [place], [place] | | | [address] | | + + -+ + +---------+ [...] | mL/hr | | | CONTINUOUS, Starting 05/27/19 | | AM PDT | | | | | at 0845, Pre-op | | | | | | + +---------+ +--------+-------+---+ +---+---+ | | | +---+---+ + +-------+ +------+---+---+ | midazolam (VERSED) 1 mg/mL | Given | 05/27/20 | 1 mg | | | | injection PRN, Starting Wed | | 19 9:44 | | | [...]
--- OUTSIDE RECORDS SUMMARY | ~2020-09-05 | XMS | Encounter Summary ---
Demographics + + + | Address | [address] | | | [place] [address] | + + + | Home Phone [...] | | | | | [place] [address] | | + + + + + | Concha Paulino | ECON | [address] | | | | | [place] [address] | | + + + + + Care Team Providers + +------+ + | Care Italian Tutor Name | Role | Phone | + +------+ + | Kurt Campbell DO | PCP | | + +------+ + Encounter Details +--------+ + + + + | Date | Type | Department | Care Team | Description | +--------+ + + + + | 03/13/ | Hospital | [facility] | Haresh Coronel | SVT | | 2019 | Encounter | MED CTR NUCLEAR | MD William [address] | (supraventricular | | | | MEDICINE [address] [place] | tachycardia) (HCC) | | | | [place] [address] [place], | [place] [address] | | | | | [place] [address] | [phone] | | | | | [phone] | | | +--------+ + + + [...] documented as of this encounter Procedure Notes Haresh Coronel MD - 04/02/2019 4:20 PM PDTAssociated Order(s): EVENT MONITOR 4 JACKI K PATIENT NAME: Renny Saravia : 2000: AGE: 19 y.o. PRIMARY CARE: DO ALTON Rahman RADIATION ENGINEER: Keri Coronel MD 2-WEEK [facility] [employer] [facility] EVENT MONITOR REPORT DATE: 03/13/2019 FINDINGS: Baseline transmission was notable for sinus rhythm with heart rate in the 80s. Patient sub sequently transmitted one episode corresponding to symptoms of palpitations at rest which co rresponded to underlying sinus rhythm with a 4-5 beat run of PACs. Another transmitted epis ode corresponded to sinus tachycardia with heart rate 137 without associated symptoms julisa ceja. Signed by: Keri Coronel MD PhD FACC 04/02/2019, 16:21 documented in t his encounter Plan of [...] | | | | | [place] [address] | | | | | | [phone] | | | | | | | | +--------+ + + + + | 09/22/ | Office | Physical Medicine | Gonzalo Merchant, | | | 2019 | Visit | and Rehabilitation | MD Dane Johnson | | | | | | [place] | | | | | | [address] | | | | | | | | +--------+ + + + + | 09/29/ | Virtual | Pain Medicine | Peggy Arreola | | 2019 | Office | | [address] | | | | Visit | | [address] [address] | | | | | | [place] | | | | | | [place] [address] | | | | | | [phone] | | | | | | | | +--------+ + + + + | 01/24/ | Office | Family Medicine | Kurt Campbell, | | | 2020 | Visit | | DO [address] | | | | | | [place] | | | | | | [address] | | | | | | | | +--------+ + + + + documented as of this encounter Procedures + +--------+ + + + | Procedure Name | Priori | Date/Time | Associated Diagnosis | Comments | | | ty | | | | + +--------+ + + + | EVENT MONITOR 4 WEEK | Routin | 04/02/2019 | SVT | Results for this | | | e | 4:20 PM | (supraventricular | procedure are in the | | | | PDT | tachycardia) ([facility]) | results section. | + +--------+ + + + documented in this encounter Results Event monitor - 4 week (04/02/2019 4:20 PM PDT) + + + | Narrative | Performed At | + + + | Haresh William Coronel MD 04/02/2019 16:23 PATIENT | [facility] | | NAME: Renny Saravia : 2000: AGE: 19 | | | y.o. PRIMARY CARE: Kurt Sullivan | | | DO ALTON Campbell RADIATION ENGINEER: Keri Coronel MD 2-WEEK | | | [employer] [facility] EVENT MONITOR REPORT DATE: 03/13/2019 | [...] | mentioned. Signed by: Keri Coronel MD [facility] | | | 04/02/2019, 16:21 | | [...] dysrhythmias | + + documented in this encounter"
--- OUTSIDE RECORDS SUMMARY | ~2020-09-05 | XMS | Encounter Summary ---
Demographics + + + | Address | [address] | | | [place] [address] | + + + | Home Phone | | + + + | Preferred Language | Unknown | + + + | Marital Status | Single | + + + | Evangelical Affiliation | [phone] | + + + [...] | | | | | [place] [address] | | + + + + + | Concha Paulino | ECON | [address] | | | | | [place] [address] | | + + + + + Care Team Providers + +------+ + | Care Director Transition Name | Role | Phone | + [...] Description | +--------+---------+ + + + | 04/22/ | Office | [facility] | Kurt Campbell, | Acute right-sided | | 2019 | Visit | [place] | DO [address] | thoracic back pain | | | | [address] | [place] | (Primary Dx); Less | | | | [place] | [address] | than 8 weeks | | | | [address] | | gestation of | | | | [phone] | | ; Scoliosis | | | | | | of thoracic spine, | | | | | | unspecified | | | | | | scoliosis type | +--------+---------+ + + + Social [...] + + + | Blood Pressure | 90/68 | 04/22/2019 3:16 PM | | | | | PDT | | + + + + + | Pulse | 108 | 04/22/2019 3:16 PM | | | | | PDT | | + + + + + | Temperature | - | - | | + + + + + | Respiratory Rate | 16 | 04/22/2019 3:16 PM | | | | | PDT | | + + + + + | Oxygen Saturation | 98% | 04/22/2019 3:16 PM | | | | | PDT | | + + + + + | Inhaled Oxygen | - | - | | | Concentration | | | | + + + + + | Weight | 46.1 kg (101 lb 10.1 | 04/22/2019 3:16 PM | | | | oz) | PDT | | + + + + + | Height | 160 cm (5' 3") | 04/22/2019 3:16 PM | | | | | PDT | | + + + + + | Body Mass Index | 18 | 04/22/2019 3:16 PM | | | | | PDT [...] encounter Patient Instructions Patient Instructions Miya Jolly, Clay Mixer - 04/22/2019 3:00 PM Shan simpson Tylenol arthritis extra strength 1-2 tablets 3 times per day. General Neck and Back Pain Both neck and back pain are usually caused by injury to the muscles or ligaments of the spi ne. Sometimes the disks that separate each bone of the spine may cause pain by pressing on a nearby nerve. Back and neck pain may appear after a sudden twisting or bending force (such as in a car accident), or sometimes after a simple awkward movement. In either case, muscle spasm is often present and adds to the pain. Acute neck and back pain usually gets better in 1 to 2 weeks. Pain related to disk disease, arthritis in the spinal joints or spinal stenosis (narrowing of the spinal canal) can becom e chronic and last for months or years. Back and neck pain are common problems. Most people feel better in 1 or 2 weeks, and most o f the rest in 1 to 2 months. Most people can remain active. People have anddescribe pain differently. Pain can be sharp, stabbing, shooting, aching, cramping, or burning Movement, standing, bending, lifting, sitting, or walking may worsen the pain Pain can be localized to one spot or area, or it can be more generalized Pain can spread or radiate upwards, downwards, to the front, or go down your arms Muscle spasm may occur. Most of the time mechanical problems with the muscles or spine cause the pain. it is usuall y caused by an injury, whether known or not, to the muscles or ligaments. While illnesses ca n cause back pain, it is usually not caused by a serious illness. Pain is usually related to physical activity, whether sports, exercise, work, or normal activity. Sometimes it can occ ur without an identifiable cause. This can happen simply by stretching or moving wrong, with out noting pain at the time. Other causes include: Overexertion, lifting, pushing, pulling incorrectly or too aggressively. Sudden twisting, bending or stretching from an accident (car or fall), or accidental mov ement. Poor posture Poor conditioning, lack of regular exercise Spinal disc disease or arthritis Stress , or illness like appendicitis, bladder or kidney infection, pelvic infections Home care Forneck pain:Use a comfortable pillow that supports the head and keeps the spine in a neutral position. The position of the head should not be tilted forward or backward. When in bed, try to find a position of comfort. A firm mattress is best. Try lying flat on your back with pillows under your knees. You can also try lying on your side with your kn ees bent up towards your chest and a pillow between your knees. At first, do not try to stretch out the sore spots. If there is a strain, it is not like the good soreness you get after exercising without an injury. In this case, stretching may make it worse. Don't sit for long periods, as inlong car rides orother travel. This puts more stres s on the lower back than standing or walking. During the first 24 to 72 hours after an injury, apply an ice pack to the painful area f or 20 minutes and then remove it for 20 minutes over a period of 60 to 90 minutes or several times a day. You can alternate ice and heat therapies. Talk with your healthcare provider about the b est treatment for your back or neck pain. As a safety precaution, do not use a heating pad a t bedtime. Sleeping with a heating pad can lead to skin zepeda or tissue damage. Therapeutic massage can help relax the back and neck muscles without stretching them. Be aware of safe lifting methods and do not lift anything over 15 pounds until all the p ain is gone. Medicines Talk to your healthcare provider before using medicine, especially if you have other medica l problems or are taking other medicines. You may use [id number] medicine to control pain, unless another pain medicine was prescribed. If you have chronic conditions like diabetes, liver or kidney disease, stomach u lcers, gastrointestinal bleeding, or are taking blood thinner medicines. Be careful if you are given pain medicines, narcotics, or medicine for muscle spasm. The y can cause drowsiness, and can affect your coordination, reflexes, and judgment. Do not dri ve or operate heavy machinery. Follow-up care Follow up with your healthcare provider, or as advised. Physical therapy or further tests m ay be needed. If X-rays were taken, you will be notified of any new findings that may affect your care. Call 911 Call 911 if any of the following occur: Trouble breathing Confusion Very drowsy or trouble awakening Fainting or loss of consciousness Rapid or very slow heart rate Loss of bowel or bladder control When to seek medical advice Call your healthcare provider right away if any of these occur: Pain becomes worse or spreads into your arms or legs Weakness, numbness or pain in one or both arms or legs Numbness in the groin area Difficulty walking Fever of 100.4F (38C) or higher, or as directed by your healthcare provider Date Last Reviewed: 05/25/201619991890-3509 [employer]. [address] [place] [address], [place] [address]. All righ ts reserved. This information is not intended as a substitute for professional medical care. Always follow your healthcare professional's instructions. documented in this encounter Progress Notes Kurt Campbell DO - 04/22/2019 3:00 PM PDTFormatting of this note might be different fro m the original. Subjective: Renny Saravia is a 19 y.o. female patient of Kurt Campbell DO. Chief Complaint: Back Pain Back Pain This is a new problem. The current episode started in the past 7 days. The problem occurs c onstantly. The problem has been gradually worsening since onset. The pain is present in the thoracic spine. The quality of the pain is described as aching, stabbing and burning. The pa in does not radiate. The pain is at a severity of 4/10. The pain is moderate. The pain is th e same all the time. The symptoms are aggravated by bending, twisting and position (laughing , lifting, sneezing). Associated symptoms include headaches and numbness. Pertinent negative s include no abdominal pain, bladder incontinence, bowel incontinence, pelvic pain or perian al numbness. She has tried analgesics and bed rest for the symptoms. Denies abdominal pain, vomiting, diarrhea, mucus in stool. Complains of constipation and nausea. Patient last period was about 1.5 months ago. She does not feel like her mental and physica l health is safe for her to move forward with initial OB appointment. She states that her we ight is suffering and it is difficult for her to eat. She is considering termination of her . She has a young son already. Poor family support. She is struggling with the de cision PREVENTIVE CARE/PRIOR VISITS 1. Any recommendations from Health Maintenance: No Preventative Services TOPIC LAST DONE NEXT DUE Vaccine: Influenza 12/03/2013 07/26/2019 Well Child Check 2002 Vaccine: Dtap/Tdap/Td 07/25/2010 07/26/2010 Vaccine: Pneumococcal 19-64 (Ppsv23 Only) Medium Risk 2018 2. Any immunizations necessary: yes Immunization History Administered Date(s) Administered DT (PED) 2000, 1999, 06/28/2000, 06/15/2004 DTP (PED) 1999 HEP A, 2 DOSE (PED/ADOL) 01/31/2001, 08/04/2001 HIB (PRP-T), 4 DOSE (PED) 1999, 1999, 1999, 06/28/2000 HPV, QUADRIVALENT, 3 DOSE (ADOL/ADULT) 08/05/2014, 11/08/2014, 04/12/2015 Hep B (PED/ADOL) 3 DOSE 2000, 1999, 1999 INFLUENZA, [id number], UNSPECIFIED 12/28/2009 INFLUENZA, UNSPECIFIED FORMULATION 09/14/2009, 10/02/2010, [...] flovent hfa, ibuprofen , misc natural products, ondansetron, vitamin b-6, sertraline, and trazodone. Past Medical History She [...] bio mom and m-grandmother Review of Systems Gastrointestinal: Positive for constipation and nausea. Negative for abdominal pain, bowel incontinence and vomiting. Genitourinary: Negative for bladder incontinence, difficulty urinating, dyspareunia, hematu oswaldo, pelvic pain and urgency. Musculoskeletal: Positive for back pain. Neurological: Positive for numbness and headaches. Psychiatric/Behavioral: Positive for sleep disturbance. Objective: Vitals: 04/22/19 1516 BP: 90/68 Pulse: 108 Resp: 16 SpO2: 98% Weight: 46.1 kg (101 lb 10.1 oz) Height: 1.6 m (5' 3") Physical Exam Constitutional: She is oriented to person, place, and time. She appears well-developed and well-nourished. No distress. HENT: Head: Normocephalic and atraumatic. Mouth/Throat: Oropharynx is clear and moist. Cardiovascular: Normal rate and regular rhythm. Exam reveals no gallop and no friction rub. No murmur heard. Pulmonary/Chest: Effort normal and breath sounds normal. No respiratory distress. She has n o wheezes. She has no rales. Musculoskeletal: Right shoulder: She exhibits no tenderness. Lumbar back: She exhibits no tenderness, no swelling and no deformity. Swelling: None Deformity: None Range of Motion: Flexion: Normal Extension: Normal, pain with thoracic extension Scoliosis Increased pain in thoracic back with pushing motions of right upper extremity. Neurological: She is alert and oriented to person, place, and time. Gait normal. Reflex Scores: Brachioradialis reflexes are 2+ on the right side and 2+ on the left side. Patellar reflexes are 2+ on the right side and 2+ on the left side. Upper extremity Strength is normal Skin: Skin is warm and dry. Psychiatric: She has a normal mood and affect. Her behavior is normal. Nursing note and vitals reviewed. Results for orders placed or performed during the hospital encounter of 04/14/19 ECHO Complete Result Value Ref Range Patient Weight (lbs) 103 Patient Height 5'3" LVIDd 4.71 cm FS 41 % LA volume 20.06 mL Ascending aorta 2.55 cm Aortic arch 2.48 cm AV mean gradient 2.72 mmHg MV Area by P 1/2 method 2.98 cm2 IVRT 103.6 msec LVOT peak navin 86.53 cm/s LVOT peak VTI 16.31 cm AV peak navin 114 cm/s AV VTI 17.97 cm AV peak gradient 5.2 mmHg MV Pressure 1/2 time 73.91 msec LA Volume Index 14 mL/m2 AV LVOT Peak Gradient 3 mmHg AV LVOT Mean Gradient 1.82 mmHg TR Peak Gradient 12 mmHg TR Velocity 173.07 cm LV Diastolic Length 4C 7.05 cm LV Systolic Area PSAX 15.34 cm2 LV Miranda's Biplane EF 70 % AV Acceleration Time 78.73 msec LV ED Volume (Miranda's) 61.85 ml LV ED Volume Index 42 ml/m2 LV ES Volume 28.97 ml LVOT Mean Velocity 64.51 cm/s MV A' Lateral Velocity 6.94 cm/s MV E' Lateral Velocity 14.86 cm/s MV A' Septal Velocity 10.07 cm/s MV E' Septal Velocity 11.54 cm/s MV Deceleration [place] 187.22 cm/s2 MV Deceleration Time 254.87 msec MV E/A Ratio 0.84 MV Peak A-Wave 57.49 cm/s MV Peak E-Wave 48.11 cm/s AV Mean Velocity 78.83 cm/s LA/Aorta Ratio 0.88 LA Area 9.72 cm2 LA Systolic Pressure 6.05 mmHg MV E/E SEPTAL 4.17 MV E/E LATERAL 3.24 LA Major 0.1797 cm LV ES Volume Index 20 ml/m2 LV Area Diastolic 22.77 cm2 Aortic Root Diameter 2.66 cm IVS Diastolic Thickness MM 0.58 cm LVPW Diastolic Thickness MM 0.58 cm IVS Systolic Thickness MM 0.95 cm LV Systolic Diameter MM 2.77 cm LVPW Systolic Thickness MM 1.39 cm AV Cusp Seperation MM 2.02 cm LA Systolic Diameter MM 2.34 cm TAPSE 2.0 cm LVEF-TTE TRANSTHORACIC ECHO 70 Assessment and Plans: 1. Acute right-sided thoracic back pain 2. Less than 8 weeks gestation of 3. Scoliosis of thoracic spine, unspecified scoliosis type 1. Acute right-sided thoracic back pain Symptoms are consistent with disc pain. I suspect disk inflammation or injury. Possibly m yesenia worse by her underlying scoliosis. No neurological issues on exam. Advised Tylenol Arth ritis 1-2 tablets 3 times daily. Avoid heavy lifting. No imaging necessary. If pain does not improve, advised a follow up in 2-4 weeks and will consider PT. steroids not advised given her first trimester status. No nerve compression seen today. -. Rest with modified activities - ice/heat as directed -. Antiinflamitory pain medications as directed -. Discussed stretching and exercises to continue at home - f/u if no improvement - Discussed with the patient that they should seek immediate medical care if they experienc e progressive decline in their neurologic status such as loss of bowel and bladder control, increased weakness or numbness of an extremity. These could be consistent with damage to you r spinal cord or nerves and is a medical emergency. 2. Less than 8 weeks gestation of Highly encouraged patient to see OB-NUTRITION DIRECTOR for current . Reassurance provided that th ere is a significant amount of support and help if she does decide to pursue . Dis cussed support services including [employer]right which provide support, clothing, for w omen in need. The patient has made it through in the past and I think she is stronger than she realizes. Encouraged her to see Dr. Monsalve. He is an expert on guiding women through the di fficult times of and can offer support and help with her symptoms. She is embarrassed and knows that her strong feelings regarding by many people. I let her know that I will care for her medical needs regardless of what she decides. 3. Scoliosis of thoracic spine, unspecified scoliosis type See above. 30+ minute visit > 50% counseling regarding the listed conditions, options for treatment, and possible risks. Return if symptoms worsen or fail to improve. Care instructions and warning signs were discussed. Medications per orders. Side effects discussed. Labs and investigations per orders I STEFF Palmer, am acting as a scribe on behalf of, and in the presence of Kurt bee DO. Electronically signed by: Miya Jolly Clay Mixer 04/22/2019 15:06 I have reviewed and edited this note: Kurt Campbell DO 04/24/19 I, Kurt Campbell DO , personally performed the services described in this documentation, as scribed in my presence by Miya Jolly and it is both accurate and complete. Electronical ly signed by Kurt Campbell DO on 04/24/2019 at 9:01 . This note is dictated using [employer] voice recognition software. This note was dictated [...] | | | | | [place] [address] | | | | | | [phone] | | | | | | | | +--------+ + + + + | 09/22/ | Office | Physical Medicine | Gonzalo Merchant, | | | 2019 | Visit | and Rehabilitation | MD Dane Johnson | | | | | | [place] | | | | | | [address] | | | | | | | | +--------+ + + + + | 09/29/ | Virtual | Pain Medicine | Peggy Arreola | | | 2019 | Office | | [address] | | | | Visit | | [place] | | | | | | [place] | | | | | | [place] [address] | | | | | | [phone] | | | | | | | | +--------+ + + + + | 01/24/ | Office | Family Medicine | Kurt Campbell, | | | 2020 | Visit | | DO [address] | | | | | | [place] | | | | | | [address] | | | | | | | | +--------+ + + + + documented as of this encounter Visit Diagnoses + + | Diagnosis | + + | Acute right-sided thoracic back pain - Primary | + + | Less than 8 weeks gestation of state, incidental | + + | Scoliosis of thoracic spine, unspecified scoliosis type | + + documented in this encounter
--- OUTSIDE RECORDS SUMMARY | ~2020-09-05 | XMS | Encounter Summary ---
Demographics + + + | Address | [address] | | | [place] [address] | + + + | Home Phone [...] | Author | [facility] | | | and [place] | + + + | Organization | [facility] | | | and [...] | | | | | [place] [address] | | + + + + + | Concha Zeeshanletty | ECON | [address] | | | | | [place] [address] | | + + + + + Care Team Providers + +------+ + | Care Cyber Special Agent Name | Role | Phone | + +------+ + | No, Physician | PCP | Unavailable | + +------+ + Reason for Visit + + + | Reason | Comments | + + + | Irregular Heart Beat | | + + + Encounter Details +--------+ + + + + | Date | Type | Department | Care Team | Description | +--------+ + + + + | 12/29/ | Emergency | [facility] | Rani Cassidy MD | Palpitations | | 2018 | | [facility] | [address] | (Primary Dx) | | | | EMERGENCY CENTER | [place] [address] | | | | | [address] | [phone] | | | | | [place], [place] | | | | | | [address] | | | | | | [phone] | | | +--------+ + + + [...] + + + | Blood Pressure | 115/78 | 12/29/2017 10:28 PM | | | | | PST | | + + + + + | Pulse | 79 | 12/29/2017 10:28 PM | | | | | PST | | + + + + + | Temperature | 36.4 C (97.6 F) | 12/29/2017 8:17 PM | | | | | PST | | + + + + + | Respiratory Rate | 19 | 12/29/2017 10:28 PM | | | | | PST | | + + + + + | Oxygen Saturation | 98% | 12/29/2017 10:28 PM | | | | | PST | | + + + + + | Inhaled Oxygen | - | - | | | Concentration | | | | + + + + + | Weight | 49.4 kg (109 lb) | 12/29/2017 7:15 PM | | | | | PST | | + + + + + | Height | 157.5 cm (5' 2") | 12/29/2017 7:15 PM | | | | | PST | | + + + + + | Body Mass Index | 19.94 | 12/29/2017 7:15 PM | | | [...] as of this encounter Discharge Instructions Instructions Rani Cassidy MD - 12/29/2017Return for continued or worsening symptoms or any f urther concerns. Follow-up with your doctor. AttachmentsThe following attachments cannot be sent through Care Everywhere.Palpitations (E nglish)documented in this encounter Medications at Time of [...] documented as of this encounter ED Notes Rani Cassidy MD - 12/29/2017 9:34 PM PST eMERGENCY dEPARTMENT eNCOUnter CHIEF COMPLAINT Chief Complaint Patient presents with Irregular Heart Beat HPI 21:34: Renny Saravia is a 17 y.o. female who presents to the ED complaining of irre gular heart beat onset today at 2039 while at rest. She admits to feeling shaky, fatigued, d ecreased food intake, weak, anxiety, and lack of sleep. Her son has recently been hospitaliz ed and is upstairs, which she attributes to her lack of sleep since. Since the onset of symp toms she has had several episodes. Patient states that "she has not been taking care of hers elf and is running off of straight anxiety". Denies chest pain, caffeine, shortness of breat h, nausea, vomiting, diaphoresis, light headedness, or known cardiac history. However, she s tates that she has had similar symptoms in the past and worn a heart monitor but there is no underlying diagnoses at this time. Her mother reports that her primary care provider is con cerned about lupus. PAST MEDICAL HISTORY Past Medical History: Diagnosis Date Asthma Depression Depression Hypotension Kidney cysts right Migraine SURGICAL HISTORY Past Surgical History: Procedure Laterality Date DENTAL SURGERY CURRENT MEDICATIONS Current Facility-Administered Medications Medication Dose Route Frequency Provider Last Rate Last Dose sodium chloride 0.9% (NS) bolus 1,000 mL 1,000 mL Intravenous Once Rani Cassidy MD Sto pped at 12/29/17 6259 Current Outpatient Prescriptions Medication Sig Dispense Refill diphenhydrAMINE (BENADRYL) 25 mg tablet Take 25 mg by mouth every 6 hours as needed for Itching. fluticasone (FLONASE) 50 mcg/nasal spray 1 spray by Nasal route Daily. hydrOXYzine (ATARAX) 50 MG tablet Take 25 mg by mouth as needed. ibuprofen (ADVIL,MOTRIN) 600 MG tablet Take 1 tablet by mouth every 6 hours as needed f or Pain. 40 tablet 0 sertraline (ZOLOFT) 25 mg tablet Take 1 tablet by mouth Daily. 30 tablet 5 ALLERGIES Allergies Allergen Reactions Rey Flavor Hives [...] mom and m-grandmother REVIEW OF SYSTEMS A complete review of systems was performed. Please refer to the history of present illness for pertinent positives and negatives, all other systems as review were negative. PHYSICAL EXAM VITAL SIGNS: BP 118/77 | Pulse 82 | Temp 36.4 C (97.6 F) (Temporal) | Resp 22 | Ht 1.575 m (5' 2") | Wt 49.4 kg (109 lb) | SpO2 98% | BMI 19.94 kg/m SpO2 has been reviewed by me and is consistent with good oxygenation on room air. Constitutional: Well developed, Well nourished, No acute distress, Non-toxic appearance. HENT: Normocephalic, Atraumatic, Oropharynx moist, No oral exudates. Neck- Normal range o f motion, No tenderness, Supple, No stridor. Eyes: PERRL, EOMI, Conjunctiva normal, No discharge. Respiratory: Normal breath sounds, No respiratory distress, No wheezing, No chest tenderne ss. Cardiovascular: Normal heart rate, Normal rhythm GI: Soft, No tenderness, No masses, non-distended Musculoskeletal: Intact distal pulses, No edema, No tenderness, No cyanosis, No clubbing. Good range of motion in all major joints. No tenderness to palpation or major deformities no kira. Back- No tenderness. Integument: Warm, Dry, No erythema, No rash. Lymphatic: No lymphadenopathy noted. Neurologic: Alert & oriented x 3, Normal motor function, Normal sensory function, No focal deficits noted. Psychiatric: Affect normal, Judgment normal, Mood normal. EKG EKG Date EKG performed:12/29/2017 Time EKG performed:18:55 Sinus rhythm rate of 93, PVCs, no ST elevation or depression Interpreted by Rani Cassidy MD, the Emergency Department physician. RELISH BLENDER: Sinus rhythm LABS Results for orders placed or performed during the hospital encounter of 12/29/17 CBC with Differential Result Value Ref Range WBC 8.0 3.8 - 11.0 K/uL RBC 4.66 3.70 - 5.10 M/uL Hgb 13.8 11.3 - 15.5 g/dL Hct 39.6 34.0 - 46.0 % MCV 85.0 80.0 - 100.0 fL MCH 29.7 27.0 - 34.0 pg MCHC 34.9 32.0 - 35.5 g/dL RDW-CV 14.1 11.0 - 15.5 % Platelet Count 334 150 - 400 K/uL Differential Type Automated % Neutrophils 57.4 40.0 - 74.0 % % Lymphocytes 27.8 20.0 - 50.0 % % Monocytes 9.2 (H) 1.0 - 9.0 % % Eosinophils 4.7 0.0 - 7.0 % % Basophils 0.9 0.0 - 2.0 % Absolute Neutrophils 4.60 1.80 - 8.00 K/uL Absolute Lymphocytes 2.20 1.20 - 5.20 K/uL Absolute Monocytes 0.70 (H) 0.20 - 0.60 K/uL Absolute Eosinophils 0.40 0.00 - 0.50 K/uL Absolute Basophils 0.10 0.00 - 0.10 K/uL Comprehensive Metabolic Panel Result Value Ref Range NA 140 135 - 145 mmol/L K 3.8 3.5 - 5.0 mmol/L CL 106 99 - 109 mmol/L CO2 24 21 - 28 mmol/L GLUCOSE 103 (H) 65 - 99 mg/dL BUN 9 8 - 25 mg/dL Creatinine, Serum/Plasma 0.70 0.51 - 0.97 mg/dL CALCIUM 10.0 8.5 - 10.2 mg/dL Total protein 7.8 6.1 - 8.4 g/dL ALBUMIN 4.4 3.5 - 5.0 g/dL BILIRUBIN TOTAL 0.6 0.1 - 1.5 mg/dL ALK PHOS 75 35 - 115 U/L AST 18 10 - 45 U/L ALT 26 10 - 65 U/L ANION GAP 10 5 - 16 mmol/L Estimated GFR Cannot calculate. >60 ml/min/1.73m2 Troponin I Result Value Ref Range Troponin I <0.01 0.00 - 0.06 ng/mL Extra Hold Tube(s) Result Value Ref Range Extra Tube BLUE SST Extra Hold Tube(s) Result Value Ref Range Extra Tube URINE POCT Test, Urine, QUAL Result Value Ref Range Test, Urine, POC Negative Negative Internal QC Acceptable Acceptable Specific [place], POC 1.010, 1.015, 1.020, 1.025 Lot Number Expiration Date RADIOLOGY Xr Chest Pa And Lateral Result Date: 12/29/2017 CHEST TWO VIEWS CLINICAL INFORMATION: Irregular heart rate. COMPARISON: No comparisons FIND INGS: Heart, lungs and vessels normal. No pneumothorax, pleural effusion or adenopathy. No s ignificant bone abnormality. IMPRESSION: Negative chest. Signed by: MD Landaverde Gordon ED COURSE & MEDICAL DECISION MAKING Pertinent Labs & Imaging studies reviewed. (See chart for details) Patient presents today with palpitations. She has had a bar tacker sewing machine in the past which did not show any acute arrhythmias. PVCs are noted on EKG. Labs are without significant ab normality. Chest x-ray shows no acute process. Patient was offered some IV fluids but she declined. She is anxious to get back to her child who is in the PICU. She is instructed re turn for continued or worsening symptoms or any further concerns and follow closely with [facility]. FINAL IMPRESSION 1. Palpitations Discharge to home in stable condition. Portions of this chart may have been created with [employer] voice recognition software. Occasi onal wrong-word or sound-alike substitutions may have occurred due to the inherent gonsalez itations of voice recognition software. Please read the chart carefully and recognize, using context, where these substitutions have occurred SCRIBE: Devon Salcido Scribe, scribing for and in the presence of Rani Cassidy MD. Signed by: Manuel Wheat 12/29/2017 22:23 PROVIDER: Rani Salcido MD personally performed the services described in this documentati on, as scribed by Devon Pope in my presence, and it is both accurate and complete. Chart Reviewed and Completed: 12/29/2017 22:23 Rani Cassidy MD 12/29/17 2227 Terry Mullins RN - 02/2018 8:14 PM PSTPatient reports having heart palpitations for the past hour; reports jes t she has had episodes in the past and worn a heart monitor; no underlying diagnosis at this time. Reports feeling shaky, fatigued, and weak. Patient has dealing with lack of sleep due to son being hospitalized; son is upstairs. Denies nausea/vomiting. Reports intermittent li ghtheadedness. Brittany Shin ARNP - 12/29/2017 6:44 PM PSTFormatting of this note might be different fro m the original. S: PT presents with complaints of palpitations, irregular heart rhythm. Onset of symptoms is prior to arrival. She has had several episodes of the same. Denies any known cardiac pr oblems. Denies chest pain or shortness of breath, no nausea, diaphoresis or lightheadedness . States onset was at rest. O: BP 123/72 | Pulse 77 | Resp 12 | Ht 1.575 m (5' 2") | Wt 49.4 kg (109 lb) | SpO2 9 8% | BMI 19.94 kg/m Alert and oriented. CV: Irregular. Respiratory: CTA, even regular respirations. Skin: Warm and dry. A: Palpitations, irregular heart P: Orders Placed During This Encounter: Orders Placed This Encounter Procedures XR Chest PA and Lateral CBC with Differential Comprehensive Metabolic Panel Troponin I Pulse Oximetry (Nursing Performed) Oxygen Therapy POCT Test, Urine, QUAL ECG 12 lead Insert 1 peripheral IV Will continue with further evaluation by the ER by provider after initial triage interventi on and evaluation. Brittany DELONG [place] [facility]YPhys[facility] Advanced Registered Nurse Practitioner [facility] ED Portions of this chart may have been created with [employer] voice recognition software. Occasi onal wrong-word or sound-alike substitutions may have occurred due to the inherent gonsalez itations of voice recognition software. Please read the chart carefully and recognize, using context, where these substitutions have occurred SINDI Reardon 12/29/17 193 Lucia Blandon RN - 12/29/2017 6:42 PM PSTFirst Nurse: Pt c/o irregular hr and shakey 6: 43 PM PSTdocumented in this encounter Plan of [...] | | | | | [place] [address] | | | | | | [phone] | | | | | | | | +--------+ + + + + | 09/22/ | Office | Physical Medicine | Gonzalo Merchant, | | | 2019 | Visit | and Rehabilitation | MD [address] | | | | | | [place] | | | | | | [id number] | | | | | | | | +--------+ + + + + | 09/29/ | Virtual | Pain Medicine | Peggy Arreola | | 2019 | Office | | [address] | | | | Visit | | [address] | | | | | | [place], | | | | | | [place] [address] | | | | | | [phone] | | | | | | | | +--------+ + + + + | 01/24/ | Office | Family Medicine | Kurt Campbell, | | | 2020 | Visit | | DO [address] | | | | | | [place] | | | | | | [address] | | | | | | | | +--------+ + + + + + +------+--------+ + + | Name | Type | Priori | Associated Diagnoses | Date/Time | | | | ty | | | + +------+--------+ + + | ECG 12 lead | ECG | STAT | | 12/29/2017 6:55 PM | | | | | | PST | + +------+--------+ + + documented as of this encounter Procedures + +--------+ + + + | Procedure Name | Priori | Date/Time | Associated Diagnosis | Comments | | | ty | | | | + +--------+ + + + | XR CHEST PA AND | STAT | 12/29/2017 | | Results for this | | LATERAL | | 9:34 PM | | procedure are in the | | | | PST | | results section. | + +--------+ + + + | POCT TEST, | STAT | 12/29/2017 | | Results for this | | URINE, QUAL | | 8:40 PM | | procedure are in the | | | | PST | | results section. | + +--------+ + + + | EXTRA HOLD TUBE(S) | Routin | 12/29/2017 | | Results for this | | | e | 8:32 PM | | procedure are in the | | | | PST | | results section. | + +--------+ + + + | EXTRA HOLD TUBE(S) | Routin | 12/29/2017 | | Results for this | | | e | 8:25 PM | | procedure are in the | | | | PST | | results section. | + +--------+ + + + | TROPONIN I | STAT | 12/29/2017 | | Results for this | | | | 8:25 PM | | procedure are in the | | | | PST | | results section. | + +--------+ + + + | CBC WITH | STAT | 12/29/2017 | | Results for this | | DIFFERENTIAL | | 8:25 PM | | procedure are in the | | | | PST | | results section. | + +--------+ + + + | COMPREHENSIVE | STAT | 12/29/2017 | | Results for this | | METABOLIC PANEL | | 8:25 PM | | procedure are in the | | | | PST | | results section. | + +--------+ + + + | ECG 12 LEAD | STAT | 12/29/2017 | | | | | | 6:55 PM | | | | | | PST | | | + +--------+ + + + documented in this encounter Results XR Chest PA and Lateral (12/29/2017 9:34 PM PST) + + | Specimen | + + | | + + + + + | Narrative | Performed At | + + + | CHEST TWO VIEWS CLINICAL INFORMATION: Irregular heart rate. | [facility] | | COMPARISON: No comparisons FINDINGS: Heart, lungs and | | | vessels normal. No pneumothorax, pleural effusion or adenopathy. No | | | significant bone abnormality. IMPRESSION: Negative chest. | | | Signed by: MD Landaverde Gordon | | + + + + + | Procedure Note | + + | Shaun, Rad Results In - 12/29/2017 9:39 PM PST | | CHEST TWO VIEWS | | | | CLINICAL INFORMATION: | | Irregular heart rate. | | | | COMPARISON: | | No comparisons | | | | FINDINGS: | | Heart, lungs and vessels normal. No pneumothorax, pleural effusion or | | adenopathy. No significant bone abnormality. | | | | IMPRESSION: | | Negative chest. | | | | | | | | Signed by: MD Landaverde Gordon | + + + +---------+ + + | Performing | Address | City/State/Zipcode | Phone Number | | Organization | | | | + +---------+ + + | [facility] | | | | + +---------+ + + POCT Test, Urine, QUAL (12/29/2017 8:40 PM PST) + + + + + [...] | 1.010, 1.015, | | | | [place], | | 1.020, 1.025 | | | | POC | | | | | + + + + + + | Lot Number | | | | | + + + + + + | Expiration | | | | | | Date | | | | | + + + + + + + + | Specimen | + + | Urine | + + Extra Hold Tube(s) (12/29/2017 8:32 PM PST) + +-------+ + + + | Component | Value | Ref Range | Performed | Pathologist | | | | | At | Signature | + +-------+ + + + | Extra Tube | URINE | | [facility] | | | | | [facility] | | | | | | [facility] | | | | | | LABORATORY | | + +-------+ + + + + + | Specimen | + + | | + + + + + + + | Performing | Address | City/State/Zipcode | Phone Number | | Organization | | | | + + + + + | [facility] | [address] | [place] [address] | | | [facility] | | | | | LABORATORY | | | | + + + + + Extra Hold Tube(s) (12/29/2017 8:25 PM PST) + + + + + + | Component | Value | Ref Range | Performed | Pathologist | | | | | At | Signature | + + + + + + | Extra Tube | BLUE SST | | [facility] | | | | | | [facility] | | | | | | [facility]ENTER | | | | | | LABORATORY | | + + + + + + + + | Specimen | + + | | + + + + + + + | Performing | Address | City/State/Zipcode | Phone Number | | Organization | | | | + + + + + | [facility] | [address] | [place] [address] | | | [facility] | | | | | LABORATORY | | | | + + + + + Troponin I (12/29/2017 8:25 PM PST) + +-------+ + + + | Component | Value | Ref Range | Performed | Pathologist | | | | | At | Signature | + +-------+ + + + | Troponin I | <0.01 | 0.00 - 0.06 | [facility] | | | | | ng/mL | [facility] | | | | | | [facility] | | | | | | MEDICAL | | | | | | CENTER | | | | | | LABORATORY | | + +-------+ + + + + + | Specimen | + + | Blood | + + + + + + + | Performing | Address | City/State/Zipcode | Phone Number | | Organization | | | | + + + + + | [facility] | [address] | [place] [address] | | | [facility] | | | | | LABORATORY | | | | + + + + + Comprehensive Metabolic Panel (12/29/2017 8:25 PM PST) + + + + + + | Component | Value | Ref Range | Performed | Pathologist | | | | | At | Signature | + + + + + + | Na | 140 | 135 - 145 | [facility] | | | | | mmol/L | [facility] | | | | | | [facility] | | | | | | MEDICAL | | | | | | CENTER | | | | | | LABORATORY | | + + + + + + | K | 3.8 | 3.5 - 5.0 | [facility] | | | | | mmol/L | [facility] | | | | | | [facility] | | | | | | MEDICAL | | | | | | CENTER | | | | | | LABORATORY | | + + + + + + | Cl | 106 | 99 - 109 mmol/L | [facility] | | | | | [facility] | | | | | | [facility] | | | | | | MED[facility] | | | | | | CENTER | | | | | | LABORATORY | | + + + + + + | CO2 | 24 | 21 - 28 mmol/L | [facility] | | | [facility] | | | | | | [facility] | | | | | | MED[facility] | | | | | | CENTER | | | | | | LABORATORY | | + + + + + + | Glucose | 103 (H)Comment: If | 65 - 99 mg/dL | [facility] | | | | , Normal = 65 to | | [facility] | | | | 94 mg/dL. [place] | | HEART | | | | Diabetes Association | | MEDICAL | | | | diagnostic categories | | CENTER | | | | for non adults: | | LABORATORY | | | | Impaired fasting | | | | | | glucose 100 to 125 | | | | | | mg/dL. A fasting | | | | | | glucose of 126 mg/dL or | | | | | | greater indicates | | | | | | diabetes if the | | | | | | abnormality is confirmed | | | | | | on a subsequent day. | | | | | | A random glucose | | | | | | result of greater than | | | | | | 200 mg/dL indicates | | | | | | diabetes if the | | | | | | abnormality is confirmed | | | | | | on a subsequent day. | | | | + + + + + + | BUN | 9 | 8 - 25 mg/dL | [facility] | | | | [facility] | | | | | [facility] | | | | | | MEDICAL | | | | | | CENTER | | | | | | LABORATORY | | + + + + + + | Creatinine | 0.70Comment: IDMS | 0.51 - 0.97 | [facility] | | | | traceable creatinine | mg/dL | [facility] | | | | | | [facility] | | | | | | MEDICAL | | | | | | CENTER | | | | | | LABORATORY | | + + + + + + | Calcium | 10.0 | 8.5 - 10.2 | [facility] | | | | | mg/dL | [facility] | | | | | | [facility] | | | | | | MEDICAL | | | | | | CENTER | | | | | | LABORATORY | | + + + + + + | Total | 7.8 | 6.1 - 8.4 g/dL | [facility] | | | Protein | | | [facility] | | | | | | HE[facility] | | | | | | MEDICAL | | | | | | CENTER | | | | | | LABORATORY | | + + + + + + | Albumin | 4.4 | 3.5 - 5.0 g/dL | [facility] | | | | | | [facility] | | | | | | [facility] | | | | | | MEDICAL | | | | | | CENTER | | | | | | LABORATORY | | + + + + + + | Bilirubin | 0.6 | 0.1 - 1.5 mg/dL | [facility] | | | Total | | | [facility] | | | | | | [facility] | | | | | | MEDICAL | | | | | | CENTER | | | | | | LABORATORY | | + + + + + + | Alkaline | 75 | 35 - 115 U/L | [facility] | | | Phosphatase | | | [facility] | | | | | | HE[facility] | | | | | | MEDICAL | | | | | | CENTER | | | | | | LABORATORY | | + + + + + + | AST | 18 | 10 - 45 U/L | [facility] | | | | | | [facility] | | | | | | [facility] | | | | | | MED[facility] | | | | | | CENTER | | | | | | LABORATORY | | + + + + + + | ALT | 26 | 10 - 65 U/L | [facility] | | | | | | [facility] | | | | | | [facility] | | | | | | [facility] | | | | | | CENTER | | | | | | LABORATORY | | + + + + + + | Anion Gap | 10 | 5 - 16 mmol/L | [facility] | | | | | | [facility] | | | | | | [facility] | | | | | | MED[facility] | | | | | | CENTER | | | | | | LABORATORY | | + + + + + + | Estimated | Cannot calculate. | >60 | [facility] | | | GFR | | ml/min/1.73m2 | [facility] | | | | | | HE[facility] | | | | | | MEDICAL | | | | | | CENTER | | | | | | LABORATORY | | + + + + + + + + | Specimen | + + | Blood | + + + + + + + | Performing | Address | City/State/Zipcode | Phone Number | | Organization | | | | + + + + + | [facility] | [address] | [place] [address] | | | [facility] | | | | | LABORATORY | | | | + + + + + CBC with Differential (12/29/2017 8:25 PM PST) + + + + + + | Component | Value | Ref Range | Performed | Pathologist | | | | | At | Signature | + + + + + + | White Blood | 8.0 | 3.8 - 11.0 K/uL | [facility] | | | Cells | | | [facility] | | | | | | [facility] | | | | | | MEDICAL | | | | | | CENTER | | | | | | LABORATORY | | + + + + + + | Red Blood | 4.66 | 3.70 - 5.10 | [facility] | | | Cells | | M/uL | [facility] | | | | | | HE[facility] | | | | | | MEDICAL | | | | | | CENTER | | | | | | LABORATORY | | + + + + + + | Hemoglobin | 13.8 | 11.3 - 15.5 | [facility] | | | | | g/dL | [facility] | | | | | | [facility] | | | | | | MEDICAL | | | | | | CENTER | | | | | | LABORATORY | | + + + + + + | Hematocrit | 39.6 | 34.0 - 46.0 % | [facility] | | | | | | [facility] | | | | | | [facility] | | | | | | [facility] | | | | | | CENTER | | | | | | LABORATORY | | + + + + + + | MCV | 85.0 | 80.0 - 100.0 fL | [facility] | | | | | | [facility] | | | | | | [facility] | | | | | | MED[facility] | | | | | | CENTER | | | | | | LABORATORY | | + + + + + + | MCH | 29.7 | 27.0 - 34.0 pg | [facility] | | | | | | [facility] | | | | | | [facility] | | | | | | [facility] | | | | | | CENTER | | | | | | LABORATORY | | + + + + + + | MCHC | 34.9 | 32.0 - 35.5 | [facility] | | | | | g/dL | [facility] | | | | | | [facility] | | | | | | MEDICAL | | | | | | CENTER | | | | | | LABORATORY | | + + + + + + | RDW-CV | 14.1 | 11.0 - 15.5 % | [facility] | | | | | | [facility] | | | | | | [facility] | | | | | | MEDICAL | | | | | | CENTER | | | | | | LABORATORY | | + + + + + + | Platelet | 334 | 150 - 400 K/uL | [facility] | | | Count | | | [facility] | | | | | | [facility] | | | | | | MEDICAL | | | | | | CENTER | | | | | | LABORATORY | | + + + + + + | Differentia | Automated | | [facility] | | | l Type | | | [facility] | | | | | | [facility] | | | | | | MEDICAL | | | | | | CENTER | | | | | | LABORATORY | | + + + + + + | % | 57.4 | 40.0 - 74.0 % | [facility] | | | Neutrophils | | | [facility] | | | | | | [facility] | | | | | | MEDICAL | | | | | | CENTER | | | | | | LABORATORY | | + + + + + + | % | 27.8 | 20.0 - 50.0 % | [facility] | | | Lymphocytes | | | [facility] | | | | | | [facility] | | | | | | MEDICAL | | | | | | CENTER | | | | | | LABORATORY | | + + + + + + | % Monocytes | 9.2 (H) | 1.0 - 9.0 % | [facility] | | | | | | [facility] | | | | | | [facility] | | | | | | MEDICAL | | | | | | CENTER | | | | | | LABORATORY | | + + + + + + | % | 4.7 | 0.0 - 7.0 % | [facility] | | | Eosinophils | | | [facility] | | | | | | HE[facility] | | | | | | MEDICAL | | | | | | CENTER | | | | | | LABORATORY | | + + + + + + | % Basophils | 0.9 | 0.0 - 2.0 % | [facility] | | | | | | [facility] | | | | | | [facility] | | | | | | MEDICAL | | | | | | CENTER | | | | | | LABORATORY | | + + + + + + | Absolute | 4.60 | 1.80 - 8.00 | [facility] | | | Neutrophils | | K/uL | [facility] | | | | | | [facility] | | | | | | MEDICAL | | | | | | CENTER | | | | | | LABORATORY | | + + + + + + | Absolute | 2.20 | 1.20 - 5.20 | [facility] | | | Lymphocytes | | K/uL | [facility] | | | | | | [facility] | | | | | | MEDICAL | | | | | | CENTER | | | | | | LABORATORY | | + + + + + + | Absolute | 0.70 (H) | 0.20 - 0.60 | [facility] | | | Monocytes | | K/uL | [facility] | | | | | | HE[facility] | | | | | | MEDICAL | | | | | | CENTER | | | | | | LABORATORY | | + + + + + + | Absolute | 0.40 | 0.00 - 0.50 | [facility] | | | Eosinophils | | K/uL | [facility] | | | | | | [facility] | | | | | | MEDICAL | | | | | | CENTER | | | | | | LABORATORY | | + + + + + + | Absolute | 0.10 | 0.00 - 0.10 | [facility] | | | Basophils | | K/uL | [facility] | | | | | | [facility] | | | | | | MEDICAL | | | | | | CENTER | | | | | | LABORATORY | | + + + + + + + + | Specimen | + + | Blood | + + + + + + + | Performing | Address | City/State/Zipcode | Phone Number | | Organization | | | | + + + + + | [facility] | [address] | [place] [id number] | | | [facility] | | | | | LABORATORY | | | | + + + + + documented in this encounter Visit Diagnoses + + | Diagnosis | + + | Palpitations - Primary | + + documented in this encounter
--- OUTSIDE RECORDS SUMMARY | ~2020-09-05 | XMS | Encounter Summary ---
Demographics + + + | Address | [address] | | | [place] [address] | + + + | Home Phone [...] + | Author | [facility] | | | and [place] | + + + | Organization | [facility] | | | and [...] | | | | | [place] [address] | | + + + + + | Concha Paulino | ECON | [address] | | | | | [place] [address] | | + + + + + Care Team Providers + +------+ + | Care Field Observer Name | Role | Phone | + +------+ + | Kurt Campbell DO | PCP | | + +------+ + Reason for Visit +---------+--------+ + | Reason | Onset | Comments | | | Date | | +---------+--------+ + | Results | 04/10/ | | | | 2018 | | +---------+--------+ + Encounter Details +--------+ + + + + | Date | Type | Department | Care Team | Description | +--------+ + + + + | 03/04/ | Telephone | [facility] | Diane Bryant, | Results | | 2018 | | MEDIC[facility] [place] | EXTRACTION OPERATOR [address] | | | | | [address] | [place] | | | | | [place] | [address] | | | | | [address] | | | | | | [phone] | | | +--------+ + + + [...] this encounter Miscellaneous Notes Telephone Encounter - Salma Church CMA - 03/04/2019 2:13 PM PDTCalled pt and relayed message. Pt verbalized understandingElectronically signed by Salma Church CMA at 03/04 2:13 PM PDTTelephone Encounter - Diane Bryant ARNP - 03/04/2019 2:06 PM PDTScreen ings for HIV and hepatitis C are negative. Electronically signed by SINDI Olmedo at 0 03/04/2019 2:06 PM PDTdocumented in this encounter Plan of [...] | | | | | | [place] [address] | | | | | | [phone] | | | | | | | | +--------+ + + + + | 09/22/ | Office | Physical Medicine | Gonzalo Merchant, | | | 2019 | Visit | and Rehabilitation | [address] | | | | | | [place] | | | | | | [address] | | | | | | | | +--------+ + + + + | 09/29/ | Virtual | Pain Medicine | Peggy Arroela | | | 2019 | Office | | [address] | | | | Visit | | [place] | | | | | | [place], | | | | | | [place] [address] | | | | | | [phone] | | | | | | | | +--------+ + + + + | 01/24/ | Office | Family Medicine | Kurt Campbell, | | | 2020 | Visit | | DO [address] | | | | | | [place] | | | | | | [id number] | | | | | | | | +--------+ + + + + documented as of this encounter Visit Diagnoses Not on filedocumented in this encounter"
--- OUTSIDE RECORDS SUMMARY | ~2020-09-05 | XMS | Encounter Summary ---
Demographics + + + | Address | [address] [facility] | | | [place] [address] | + + + | Home Phone [...] | | | | | [place] [address] | | + + + + + | Concha Paulino | ECON | [address] | | | | | [place] [address] | | + + + + + Care Team Providers + +------+ + | Care Cutting Machine Operator Helper Name | Role | Phone | + +------+ + | Kurt Campbell DO | PCP | | + +------+ + Reason for Visit + +--------+ + | Reason | Onset | Comments | | | Date | | + +--------+ + | Follow-up | 01/27/ | possible COVID exposure | | | 2020 | | + +--------+ + Encounter Details +--------+ + + + + | Date | Type | Department | Care Team | Description | +--------+ + + + + | 01/27/ | Telephone | [facility] | Kurt Campbell, | Follow-up (possible | | 2019 | | [facility] | DO [address] | COVID exposure) | | | | [address] | [place] | | | | | [place] | [address] | | | | | [address] | | | | | | [phone] | | | +--------+ + + + [...] this encounter Miscellaneous Notes Telephone Encounter - Parisa Diane RN - 01/28/2020 4:45 PM PSTCalled patient today to do a follow up. She was supposed to be on home isolation and today went to see the physi atrist for trigger finger injection even though she still had a fever. Explained that home isolation means she needs to stay at home until (per her off work note) at least 24 hours post fever without need of medication intervention. Pt states " I didn't know that isolation meant I couldn't go to the doctors office". Gave education that she need s to stay out of community areas unless she needs to come to the hospital for a life threate dawson emergency until her symptoms are resolved. Educated on hand washing and importance of h ow to control the spread of the virus in the home as well. This was reported to the life enrichment manager of neuro so that follow up can be made and staff re-educcarmelita malone on screening importance. 4 :51 PM PSTTelephone Encounter - Parisa Diane RN - 01/28/2020 3:52 PM PST----- Messa ge from Kurt High DO Adrian sent at 01/28/2020 2:00 PM PST ----- Fever and indirect COVID exposure (low risk). Please monitor. Discussed the case with the health department who agreed with home and self-isolation documented in this encounter Plan of Treatment [...] | | | | | [place] [address] | | | | | | [phone] | | | | | | | | +--------+ + + + + | 09/22/ | Office | Physical Medicine | Gonzalo Merchant, | | | 2019 | Visit | and Rehabilitation | [address] | | | | | | [place] | | | | | | [address] | | | | | | | | +--------+ + + + + | 09/29/ | Virtual | Pain Medicine | Peggy Arreola | | 2019 | Office | | [address] | | | | Visit | | [place] | | | | | | [place], | | | | | | [place] [address] | | | | | | [phone] | | | | | | | | +--------+ + + + + | 01/24/ | Office | Family Medicine | Kurt Campbell, | | | 2020 | Visit | | DO [address] | | | | | | [place] | | | | | | [address] | | | | | | | | +--------+ + + + + documented as of this encounter Visit Diagnoses Not on filedocumented in this encounter
--- OUTSIDE RECORDS SUMMARY | ~2020-09-05 | XMS | Encounter Summary ---
Demographics + + + | Address | [address] [facility] [facility] | | | [place] [address] | + + + | Home Phone [...] | | | | | [place] [address] | | + + + + + | Concha Paulino | ECON | [address] | | | | | [place] [address] | | + + + + + Care Team Providers + +------+ + | Care Advisor Consultant Name | Role | Phone | + +------+ + | No, Physician | PCP | Unavailable | + +------+ + Reason for Visit + + + | Reason | Comments | + + + | Consult | | + + + Encounter Details +--------+ + + + + | Date | Type | Department | Care Team | Description | +--------+ + + + + | 09/27/ | Hospital | [facility] | Tomeka Gomez | Encounter for | | 2016 | Encounter | MED CTR OB | Fatimah Peralta DO | antepartum | | | | PROCEDURES [address] | consultation | | | | [place], | [place] | regarding | | | | [place] [address] | [id number] | | | | | [phone] | | | +--------+ + + + [...] as of this encounter Progress Notes Christine Viveros RN - 09/27/2017 12:22 PM PDTMother here for feeding consult and TCBC on in jose luis Mother breast feeding infant well she is supplementing with pumped breast milk Mother states she feels safe at her grandmothers home and that her grandmother is making improvements on her housing situation Case management Fany present to see patient and to go over patients plan of care Jesu her S/O is present at appointment and he also states they are doing well at the grandmo thers home documented in this en counter Plan of [...] | | | | | | [place] [address] | | | | | | [phone] | | | | | | | | +--------+ + + + + | 09/22/ | Office | Physical Medicine | Gonzalo Merchant, | | | 2019 | Visit | and Rehabilitation | [address] | | | | | | [place] | | | | | | [address] | | | | | | | | +--------+ + + + + | 09/29/ | Virtual | Pain Medicine | Peggy Arreola | | 2019 | Office | | [address] | | | | Visit | | [place] | | | | | | [place] | | | | | | [place] [address] | | | | | | [phone] | | | | | | | | +--------+ + + + + | 01/24/ | Office | Family Medicine | Kurt Campbell, | | | 2020 | Visit | | DO [address] | | | | | | [place] | | | | | | [address] | | | | | | | | +--------+ + + + + documented as of this encounter Visit Diagnoses + + | Diagnosis | + + | Encounter for antepartum consultation regarding | + + documented in this encounter"
--- OUTSIDE RECORDS SUMMARY | ~2020-09-05 | XMS | Encounter Summary ---
Demographics + + + | Address | [address] [facility] [facility] [facility] | | | [place] [address] | + + + | Home Phone | | + + + | Preferred Language | Unknown | + + + | Marital Status | Single | + + + | Advent Affiliation | 1059 | + + + | Race | Unknown | + + + | Ethnic Group | Not or | + + + Author + + + | Author | [facility] | | | and [place] | + + + | Organization | [facility] | | [...] | | | | | [place] [address] | | + + + + + | Concha Zeeshanletty | ECON | [address] | | | | | [place] [address] | | + + + + + Care Team Providers + +------+ + | Care Tier Over Name | Role | Phone | + [...] | +--------+ + + + + | 04/03/ | Emergency | [facility] | Casimiro Pimentel, | 12 weeks gestation | | 2017 | | MED CTR EMERGENCY | MD [address] | of | | | | CENTER [address] | [place], [place] | (Primary Dx); | | | | [place], [place] | [address] | with low | | | | [address] | | back pain in first | | | | [phone] | | trimester, | | | | | | antepartum; | | | | | | with | | | | | | abdominal pain of | | | | | | right lower | | | | | | quadrant, antepartum | +--------+ + + + + Social [...] + + + | Blood Pressure | 116/73 | 04/03/2017 10:43 AM | | | | | PDT | | + + + + + | Pulse | 90 | 04/03/2017 10:43 AM | | | | | PDT | | + + + + + | Temperature | 37.1 C (98.8 F) | 04/03/2017 10:43 AM | | | | | PDT | | + + + + + | Respiratory Rate | 18 | 04/03/2017 10:43 AM | | | | | PDT | | + + + + + | Oxygen Saturation | 99% | 04/03/2017 10:43 AM | | | | | PDT | | + + + + + | Inhaled Oxygen | - | - | | | Concentration | | | | + + + + + | Weight | 49 kg (108 lb) | 04/03/2017 10:43 AM | | | | | PDT | | + + + + + | Height | 157.5 cm (5' 2") | 04/03/2017 10:43 AM | | | | | PDT | | + + + + + | Body Mass Index | 19.75 | 04/03/2017 10:43 AM | | | | | PDT | | + + + + + documented in this encounter Discharge Instructions AttachmentsThe following attachments cannot be sent through Care Everywhere.ABDOMINAL PAIN, EARLY (STATELESS)documented in this encounter Medications at Time of [...] documented as of this encounter ED Notes John Cotter RN - 04/03/2017 12:34 PM PDTSandwich and orange juice given to pt.Randy cason signed by John Cotter RN at 04/03/2017 12:34 PM Casimiro Scherer MD - 2016 10:58 AM PDT [facility] Emergency Department Encounter Note [address] [place] [address] PCP:Leonid Osorio MD [phone] CHIEF COMPLAINT: Chief Complaint Patient presents with Back Pain ED Room: ED10/ED10 HPI Renny Saravia is a 17 y.o. female who presents to the Emergency Department Is with previous SAB 2 who reports being 12 weeks EGA with a justin without any discharge or drainage nor vaginal bleeding. No recent falls or injuries. She has some rig ht-sided discomfort without any suprapubic pain. PAST MEDICAL & SURGICAL HISTORY Past Medical History Diagnosis Date Depression Asthma Migraine Kidney cysts right Depression Hypotension Past Surgical History Procedure Laterality Date Dental surgery CURRENT MEDICATIONS Discharge Medication List as of 04/03/2017 12:31 CONTINUE these medications which have NOT CHANGED Details azithromycin (ZITHROMAX) 250 mg tablet 2 tablets orally on the first day, then one tablet o rally daily for 4 more daysDisp-6 tablet, R-0, Normal diphenhydrAMINE (BENADRYL) 25 mg tablet [...] Father 42 Other (see comment) Father angina High blood pressure Maternal Grandmother Heart surgery Maternal Grandmother 4x bypass Other (see comment) Maternal Grandmother pulmonary embolism Heart defect Maternal Grandmother hole in heart Cardiomyopathy Other m-ggm Other (see comment) Maternal Aunt ablation Other (see comment) Other ablation Other (see comment) Other ablation Other (see comment) Maternal Grandfather 47 alcoholism/rheumatic fever Collagen disease Neg Hx Congenital Heart Disease Neg Hx Deafness Neg Hx Heart Transplant Neg Hx High cholesterol Neg Hx Marfan syndrome Neg Hx Premature CHD Neg Hx Seizures Neg Hx Sudden Neg Hx Social History Social History Marital Status: Single Spouse Name: N/A Number of Children: N/A Years of Education: N/A Social History Main Topics Smoking status: Passive Smoke Exposure - Never Smoker Smokeless tobacco: Never Used Alcohol Use: No Drug Use: No Sexual Activity: Partners: Male Control/ Protection: Yes Other Topics Concern Not on file Social History Narrative Lives with bio mom and m-grandmother REVIEW OF SYSTEMS Constitutional: Negative for: fever or chills Gastrointestinal: Negative for: vomiting or POSITIVE nausea and abdominal pain Genitourinary: Negative for: dysuria, flank pain, or hematuria Musculoskeletal: Negative for: myalgias or arthralgias Skin: Negative for: rash or lesion Neuro and psych: Negative for: fainting or dizziness All other systems were reviewed and are subjectively reported as negative. PHYSICAL EXAM VITAL SIGNS: (first vital signs):Temp: 37.1 C (98.8 F) Pulse: 90 Resp: 18 SpO2: 99 % BP : 116/73 mmHg General: Alert, no active distress and not requiring any emergent interventions Eyes: Normal inspection, pupils equal and round, non-icteric sclera ENT: Ears normal Nose normal without discharge or drainage Pharynx normal with no exudates or discharge Neck: Normal inspection with no lymphadenopathy Supple Full ROM No carotid bruit with midline trachea Cardiovascular: Normal rate and rhythm, no extra sounds No murmurs rubs or gallops Focal PMI Respiratory: No respiratory distress or wheezing Normal excursion No retractions Abdomen: Soft, non-tender, non-distended Normal active bowel sounds No Rovsing's no McBurney's no obturator Back: Normal inspection Without tenderness or deformity Skin: Color normal Warm and dry Extremities: [place] with equal pulses in the upper and lower extremities bilaterally Neuro: No gross motor/sensory deficit GCS 15 No cerebellar deficits Alert and oriented to person, place, time and situation. LABS Results for orders placed or performed during the hospital encounter of 04/03/17 Urinalysis with Microscopic with Culture if Indicated Result Value Ref Range COLOR Yellow Light Yellow, Yellow, Straw CLARITY Hazy (A) Clear PH UA 6.0 5.0-8.0 Specific [place] 1.016 1.001-1.030 PROTEIN UA Negative Negative BLOOD UA Negative Negative GLUCOSE UA Negative Negative KETONES UA 20 mg/dL (A) Negative BILIRUBIN UA Negative Negative NITRITE UA Negative Negative LEUKOCYTES ESTERASE UA Moderate (A) Negative UROBILINOGEN UA Negative 0.2 mg/dL, 1.0 mg/dL, Negative WBC UA 5-10 (A) 0-2 /HPF RBC UA 2-5 (A) 0-2 /HPF SQUAMOUS EPITHELIAL UA 25-50 (A) 0-2 /LPF BACTERIA UA 1+ (A) Negative /HPF MUCUS UA Present (A) Negative /LPF AMORPHOUS CRYSTALS Few (A) None Seen /HPF URINE COMMENT Urine Culture Not Indicated POCT Urinalysis Dipstick Automated Result Value Ref Range Color, UA, POC Dark Yellow (A) Yellow, Light Yellow Clarity, UA, POC Opaque Glucose, UA, POC Negative Negative Bilirubin, UA, POC Negative Negative Ketones, UA, POC 2+ (A) Negative, 100 mg/dL Specific [place], UA, POC 1.025 1.001 - 1.030 Blood, UA, POC Negative Negative pH, UA, POC 7.0 5.0, 6.0, 7.0, 8.0, 5.5, 6.5, 7.5 Protein, UA, POC Negative Negative Urobilinogen, UA, POC 0.2 mg/dL 0.2, Negative, Normal, < 0.2 mg/dL, 1 mg/dL, < 0.2 E.U./dl , 1.0 E.U./dL, 0.2 mg/dL Nitrite, UA, POC Negative Negative Leukocyte Esterase, UA, POC 2+ (A) Negative RED SUB UA ICTOTEST Negative REMARK STUDIES No results found for this or any previous visit (from the past 360 hour(s)). ED COURSE & MEDICAL DECISION MAKING Pertinent Labs & Imaging studies were reviewed along with EMS notes and [facility] record s if applicable. (See chart for details) Medications and Allergy list reviewed. Nurses note and old records were reviewed. 10:58 Presents with an otherwise unremarkable exam with discomfort more consistent with rig ht ligament pain and low back pain consistent with early in the first trimester wi thout any evidence of nausea vomiting or ongoing vaginal bleeding or spotting. She has had an prior ultrasound which documents an intrauterine . History of ovarian cysts bef ore in the past. 12:09 Discuss your ObGyn the need for oral antibiotics given your urine sample this morning . She is feeling better after the staff was able to obtain some heart tones. As we di amauried recently just completed a course of ciprofloxacin and I would recommend follow-up an d discussion with your ObGyn prior to the initiation of any additional treatment at this poi nt in time. It is not clear you have a urinary tract infection but we should await for the urine culture to determine the next most reasonable course of care. Based on your exam whic h is without acute peritoneal signs and no focal tenderness I do not your require additional intervention or diagnostic imaging at this point time. Please return should you have any n ew concerns or you feel worse. Last Set of Vital Signs: Temp: 37.1 C (98.8 F) Pulse: 90 Resp: 18 SpO2: 99 % BP: 116/73 mmHg Patient Vitals for the past 24 hrs: BP Temp Temp src Pulse Resp SpO2 Height Weight 04/03/17 1043 116/73 mmHg 37.1 C (98.8 F) Oral 90 18 99 % 1.575 m (5' 2") 48.988 kg (10 8 lb) Medications - No data to display FINAL IMPRESSION 1. 12 weeks gestation of 2. with low back pain in first trimester, antepartum 3. with abdominal pain of right lower quadrant, antepartum Follow-up Information Follow up with [facility]. Specialty: Emergency Medicine Why: As needed Contact information: [address] [place] [address] Follow up with Your MEDICAL CHIEF TECHNICIAN as scheduled this Saturday. Discharge Medication List as of 04/03/2017 12:31 Electronically signed by: Casimiro Pimentel MD 04/03/2017 17:07 Casimiro Pimentel. This document has been prepared with a voice recognition system. The possibility of "sound alike" director revenue errors, addition and/or deletions may occur. If there is any question p rehana contact the author of the document. Casimiro Pimentel MD 04/03/17 1707 docume nted in this encounter Miscellaneous Notes ED Triage Notes - Brittany Lozoya RN - 04/03/2017 10:40 AM PDTPt reports lower back alejandra n for last few weeks. Pt also reports right lower abd pain. Per pt report, pt is . Pt has hx of spontaneous . Electronically signed by Brittany Lozoya RN at 2016 10:43 AM PDTdocumented in this encounter Plan of [...] | | | | | | [place] [address] | | | | | | [phone] | | | | | | | | +--------+ + + + + | 09/22/ | Office | Physical Medicine | Gonzalo Merchant, | | | 2019 | Visit | and Rehabilitation | [address] | | | | | | [place] | | | | | | [address] | | | | | | | | +--------+ + + + + | 09/29/ | Virtual | Pain Medicine | Peggy Arreola | | | 2019 | Office | | [address] | | | | Visit | | [place] | | | | | | [place], | | | | | | [place] [address] | | | | | | [phone] | | | | | | | | +--------+ + + + + | 01/24/ | Office | Family Medicine | Kurt Campbell, | | | 2020 | Visit | | [address] | | | | | | [place] | | | | | | [address] | | | | | | | | +--------+ + + + + + +------+--------+ + + | Name | Type | Priori | Associated Diagnoses | Date/Time | | | | ty | | | + +------+--------+ + + | ED INFORMATION | FRANDY | Routin | | 04/03/2017 10:56 AM | | EXCHANGE | | e | | PDT | + +------+--------+ + + documented as of this encounter Procedures + +--------+ + + + | Procedure Name | Priori | Date/Time | Associated Diagnosis | Comments | | | ty | | | | + +--------+ + + + | POCT URINALYSIS, | STAT | 04/03/2017 | | Results for this | | AUTO WITH CONF | | 11:02 AM | | procedure are in the | | | | PDT | | results section. | + +--------+ + + + | URINALYSIS WITH | STAT | 04/03/2017 | | Results for this | | MICROSCOPIC WITH | | 11:00 AM | | procedure are in the | | CULTURE IF INDICATED | | PDT | | results section. | + +--------+ + + + | ED INFORMATION | Routin | 04/03/2017 | | | | EXCHANGE | e | 10:56 AM | | | | | | PDT | | | + +--------+ + + + documented in this encounter Results POCT Urinalysis Dipstick Automated (04/03/2017 11:02 AM PDT) + + + + + + | Component | Value | Ref Range | Performed | Pathologist | | | | | At | Signature | + + + + + + | Color, UA, | Dark Yellow (A) | Yellow, Light | | | | POC | | Yellow | | | + + + + + + | Clarity, | Opaque | | | | | UA, POC [...] + + + + | Ketones, | 2+ (A) | Negative, 100 | | | | UA, POC | | mg/dL | | | + + + + + + | Specific | 1.025 | 1.001 - 1.030 | | | | [place], | | | | | | UA, POC | | | | | + + + + + + | Blood, UA, | Negative | Negative | | | | POC | | | | | + + + + + + | pH, UA, POC | 7.0 | 5.0, 6.0, 7.0, | | | | | | 8.0, 5.5, 6.5, | | | | | | 7.5 | | | + + + + + + | Protein, | Negative | Negative | | | | UA, POC | | | | | + + + + + + | Urobilinoge | 0.2 mg/dL | 0.2, Negative, | | | | [...] + + + + | Leukocyte | 2+ (A) | Negative | | | | [...] | Specimen | + + | Urine specimen | | (specimen) | + + Urinalysis with Microscopic with Culture if Indicated (04/03/2017 11:00 AM PDT) + + + + + [...] + + + + | Specific | 1.016 | 1.001 - 1.030 | [facility] | | | [place], | | | [facility] | | [...] + + + + | Ketones, | 20 mg/dL (A) | Negative | [facility] | [...] Urine | Urine Culture Not | | [facility] | | | Comment | Indicated | [...] [address] | [place] | [phone] | | [facility] | | [address] | | | - LABORATORY | | | | + + + + + documented in this encounter Visit Diagnoses + + | Diagnosis | + + | 12 weeks gestation of - Primary state, incidental | + + | with low back pain in first trimester, antepartum | + + | with abdominal pain of right lower quadrant, antepartum | + + documented in this encounter
--- OUTSIDE RECORDS SUMMARY | ~2020-09-05 | XMS | Encounter Summary ---
Demographics + + + | Address | [address] | | | [place] [address] | + + + | Home Phone [...] Author + + + | Author | [facility] | | | and [place] | + + + | Organization | [facility] | [...] | | | | | [place] [address] | | + + + + + | Concha Paulino | ECON | [address] | | | | | [place] [address] | | + + + + + Care Team Providers + +------+ + | Care Publication Designer Name | Role | Phone | [...] Description | +--------+---------+ + + + | 06/01/ | Office | [facility] | Kurt Campbell, | Anxiety (Primary | | 2020 | Visit | [facility] [place] | DO [address] | Dx); Depression, | | | | [address] | [place] | unspecified | | | | [place], [place] | [address] | depression type; | | | | [phone] | | Panic attacks; RLQ | | | | [phone] | | abdominal pain | +--------+---------+ + + + Social [...] + + + | Blood Pressure | 114/72 | 06/01/2020 10:55 AM | | | | | PDT | | + + + + + | Pulse | 88 | 06/01/2020 10:55 AM | | | | | PDT | | + + + + + | Temperature | - | - | | + + + + + | Respiratory Rate | - | - | | + + + + + | Oxygen Saturation | 99% | 06/01/2020 10:55 AM | | | | | PDT | | + + + + + | Inhaled Oxygen | - | - | | | Concentration | | | | + + + + + | Weight | 49 kg (108 lb 0.4 | 06/01/2020 10:55 AM | | | | oz) | PDT | | + + + + + | Height | - | - | | + + + + + | Body Mass Index | 19.76 | 02/25/2020 4:15 PM | | | [...] encounter Patient Instructions Patient Instructions Miya Jolly, Resaw Tailer - 06/01/2020 10:45 AM Levi boucher of this note might be different from the original. Depression and the Brain s Chemical Balance Everyone feels sad from time to time. But depression is much more serious than just feeling down. Depression is a real illness, just like diabetes or heart disease. And just like thos e illnesses, depression is not something a person can "snap out of." It's believed that a co mbination of genetic, biological, environmental, and psychological factors cause depression. Chemical changes in the brain may contribute to the symptoms of the disease. In a normal message pattern, messages travel smoothly between nerve cells in the brain. A change in chemicals in the brain can interfere with how messages are sent. This is one ca use of depression. Brain chemicals and depression The brain is a complex organ. It controls all the workings of your body, including your emo tions. It does this by using messages that travel from one nerve cell to another, and from o ne brain region to another. Brain messages travel with help from chemicals. These are called neurotransmitters. No one knows exactly what happens in the brain to cause depression. But we do know that neurotransmitters are involved. Changes in the brain Two neurotransmitters are mainly involved in depression. These are norepinephrine and serot onin. Antidepressants and talk therapy are the main treatments for depression. Both change t he levels of these neurotransmitters. In many cases, this relieves depression symptoms. [employer] reviewed this educational content on 07/26/201919995281-4784 [employer]. [address] [place] [address]. All righ ts reserved. This information is not intended as a substitute for professional medical care. Always follow your healthcare professional's instructions. documented in this encounter Progress Notes Kurt Campbell DO - 06/01/2020 10:45 AM PDTFormatting of this note might be different fro m the original. Subjective: Renny Saravia is a 20 y.o. female patient of Kurt Campbell DO. Chief Complaint: Anxiety and Depression HPI Depression/Anxiety: Patient is here for follow-up of Depression and anxiety. Wellbutrin was increased to 300 mg daily at last visit. Patient did not tolerate increased dose well, she felt more anxious with visual changes. She has now decreased Wellbutrin to 15 0 mg daily. Panic attacks are occurring about 1-2 times per week. Anxiety is uncontrolled. Sleep Disturbance: Yes sleeping too much Are you currently in counseling: no PHQ9 SCORE Office Visit from 06/01/2020 in [facility] Office Visit from 2018 in [facility] Office Visit from 04/01/2019 in [facility] Office Visit from 03/02/2019 in [facility] PHQ-9 Total Score (Patient Health Questionnaire) 17 6 16 19 ANXIETY/STRESS SCORE Office Visit from 06/01/2020 in [facility] Office Visit from 2018 in [facility] Office Visit from 04/01/2019 in [facility] Office Visit from 03/02/2019 in [facility] MARIE-7 Score (General Anxiety Disorder) 19 11 21 20 PREVENTIVE CARE/PRIOR VISITS 1. [...] INFLUENZA TRIV W/PRES(PED/ADOL/ADULT),MULTIDOSE 09/14/2009, 10/02/2010, 12/03/2013 INFLUENZA, [id number], UNSPECIFIED 12/28/2009 INFLUENZA, UNSPECIFIED FORMULATION 09/14/2009, 10/02/2010, [...] cyclobenzaprine, diphenhydramine, epinephrine auto-inje ctor, flovent hfa, fluoxetine, fluticasone, loratadine, meclizine, misc natural products, no rgestimate-ethinyl estradiol, ondansetron, ranitidine, and trazodone. Past Medical [...] Systems Constitutional: Negative. Respiratory: Negative. Cardiovascular: Negative. Gastrointestinal: Positive for abdominal pain. Psychiatric/Behavioral: Positive for dysphoric mood, sleep disturbance and suicidal ideas. The patient is nervous/anxious. Objective: Vitals: 06/01/20 1055 BP: 114/72 Pulse: 88 SpO2: 99% Weight: 49 kg (108 lb 0.4 oz) Physical Exam Constitutional: She is oriented [...] orders placed or performed in visit on 04/29/20 Vitamin D, Deficiency Screen (25-Hydroxy) Result Value Ref Range Vitamin D, 25 Hydroxy 22 (L) 30 - 100 ng/mL TSH Result Value Ref Range TSH 1.29 0.36 - 3.74 uIU/mL CBC with Differential Result Value Ref Range White Blood Cells 8.3 4.0 - 11.0 K/uL Red Blood Cells 4.25 3.70 - 5.20 M/uL Hemoglobin 13.5 11.5 - 16.0 g/dL Hematocrit 38.8 34.0 - 47.0 % MCV 91.3 83.0 - 101.0 fL MCH 31.8 28.0 - 35.0 pg MCHC 34.8 32.0 - 36.0 g/dL RDW-CV 12.0 <15.0 % RDW-SD 40.4 35.1 - 46.3 fL Platelet Count 369 140 - 440 K/uL MPV 9.7 6.5 - 12.4 fL % Neutrophils 55.9 45.0 - 82.0 % % Lymphocytes 28.4 20.0 - 45.0 % % Monocytes 9.5 4.0 - 12.0 % % Eosinophils 5.6 (H) 0.0 - 5.0 % % Basophils 0.5 0.0 - 1.0 % % Immature Granulocytes 0.1 0.0 - 0.4 % Absolute Neutrophils 4.62 1.80 - 8.50 K/uL Absolute Lymphocytes 2.34 0.60 - 3.20 K/uL Absolute Monocytes 0.78 0.00 - 1.00 K/uL Absolute Eosinophils 0.46 (H) 0.00 - 0.40 K/uL Absolute Basophils 0.04 0.00 - 0.10 K/uL Absolute Immature Granulocytes 0.01 0.00 - 0.03 K/uL Vitamin B-12 Result Value Ref Range VITAMIN B-12 541 156 - 672 pg/mL Cytomegalovirus Ab, IgG and IgM Result Value Ref Range CMV IgG <0.60 0.00 - 0.59 U/mL CMV IgM <30.0 0.0 - 29.9 AU/mL Danyell-Farooq Virus Panel Result Value Ref Range EBV Ab IgM to Capsid <36.0 0.0 - 35.9 U/mL EBV Ab IgG to Capsid 161.0 (H) 0.0 - 17.9 U/mL EBV Ab IgG to Nuclear Antigen <18.0 0.0 - 17.9 U/mL Interpretation: Comment Iron, Total Result Value Ref Range Iron 62 50 - 170 ug/dL Assessment and Plans: 1. Anxiety FLUoxetine (PROZAC) 20 mg capsule 2. Depression, unspecified depression type FLUoxetine (PROZAC) 20 mg capsule 3. Panic attacks FLUoxetine (PROZAC) 20 mg capsule 4. RLQ abdominal pain 1. Anxiety 2. Depression, unspecified depression type 3. Panic attacks Uncontrolled. Wellbutrin was not tolerated at a higher dose and moods are not controlled on current dose. Discussed alternative medication options for better control. She has tried an d failed Zoloft and Effexor previously. I would suggest trial of Fluoxetine 20 mg daily. Jimmy hernandez continue Wellbutrin 150 mg daily, may discontinue in the future. She is on the wait list for [facility]'s, this will be helpful for further management. Genetic testing ordered to help determine how the body uses dopamine, noradrenergic and ser otonin neurotransmitters. Also verify how the liver may process potential psychiatric medica tions. Medication risks and benefits were reviewed in detail today with the patient who expresses understanding. Pt will call or return with problems or side effects. - Anxiety and depression scores reviewed with [...] improve your emotional w ell being. - FLUoxetine (PROZAC) 20 mg capsule; Take 1 capsule by mouth Daily. Dispense: 30 capsule; Refill: 1 4. RLQ abdominal pain Given lack of fevers and intense pain, I suspect ovarian cyst vs appendicitis. Continue to monitor for worsening symptoms. She does have a h/o ovarian cysts, commonly resolve on their own. Return in about 2 weeks (around 06/15/2020) for genesight/ moods - medication. Care instructions and warning signs were discussed. Medications per orders. Side effects discussed. Labs and investigations per orders I STEFF Palmer, am acting as a scribe on behalf of, and in the presence of Kurt bee DO. Electronically signed by: Miya Jolly, Resaw Tailer 06/01/2020 10:51 AM PDT I have reviewed and edited this note: Kurt Campbell DO 06/01/20 I, Kurt Campbell DO , personally performed the services described in this documentation, as scribed in my presence by Miya Jolly and it is both accurate and complete. Electronical ly signed by Kurt Campbell DO on 06/01/2020 at 1:55 PM PDT . This note is dictated using [employer] voice recognition software. This note was dictated [...] | | | | | [address] [facility] | | | | | | [place] [address] | | | | | | [phone] | | | | | | | | +--------+ + + + + | 09/22/ | Office | Physical Medicine | Gonzalo Merchant, | | | 2019 | Visit | and Rehabilitation | [address] | | | | | | [place] | | | | | | [address] | | | | | | | | +--------+ + + + + | 09/29/ | Virtual | Pain Medicine | Peggy Arreola | | | 2019 | Office | | [address] | | | | Visit | | [address] | | | | | | [place], | | | | | | [place] [address] | | | | | | [phone] | | | | | | | | +--------+ + + + + | 01/24/ | Office | Family Medicine | Kurt Campbell, | | | 2020 | Visit | | DO [address] | | | | | | [place] | | | | | | [address] | | | | | | | | +--------+ + + + + documented as of this encounter Visit Diagnoses + + | Diagnosis | + + | Anxiety - Primary Anxiety state, unspecified | + + | Depression, unspecified depression type | + + | Panic attacks Panic disorder without agoraphobia | + + | RLQ abdominal pain Abdominal pain, right lower quadrant | + + documented in this encounter
--- OUTSIDE RECORDS SUMMARY | ~2020-09-05 | XMS | Encounter Summary ---
Demographics + + + | Address | [address] | | | [place] [address] | + + + | Home Phone [...] | | | | | [place] [address] | | + + + + + | Concha Zeeshanletty | ECON | [address] | | | | | [place] [address] | | + + + + + Care Team Providers + +------+ + | Care Saturation Diver Name | Role | Phone | + [...] | Physical | Diagnoses | Mayur, | | | | Services | Therapy | Trigger | Gonzalo Weir MD | PHYSICAL | | | Required | | point of | [address] | THERAPY - | | | | | thoracic | [address] | [place] | | | | | region | [place], | [facility] | | | | | Adolescent | [place] [address] | [address] | | | | | idiopathic | Phone: | ST | | | | | scoliosis of | [phone] | [facility] | | | | | | Fax: | [place], [place] | | | | | thoracolumba | [phone] | [address] | | | | | r region | | Phone: | | | | | Focal | | [phone] | | | | | dystonia | | Fax: | | | | | | | [phone] | +--------+ + + + + + Evaluate & Treat (Routine) +--------+ + + + + + | Status | Reason | Specialty | Diagnoses / | Referred By | Referred To | | | | | Procedures | Contact | Contact | +--------+ + + + + + | Closed | Specialty | Physical | Diagnoses | Merchant, | Gonzalo Merchant | | | Services | Medicine and | Trigger | Gonzalo Weir MD | Raul Weir MD [address] | | | Required | Rehabilitatio | point of | [address] | | | | n | thoracic | [address] | [place], | | | | | region | [place], | [place] [address] | | | | | Adolescent | [place] [address] | Phone: | | | | | idiopathic | Phone: | [phone] | | | | | scoliosis of | [phone] | Fax: | | | | | | Fax: | [phone] | | | | | thoracolumba | [phone] | | | | | | r region | | | | | | | Focal | | | | | | | dystonia | | | | | | | Procedures | | | | | | | [place] INJECT | | | | | | | TRIGGER | | | | | | | POINT, 3+ | | | | | | | MUSCLES [place] | | | | | | | [...] | + + + | Follow-up | scoliosis | + + + Evaluate & Treat [...] midline | [address] | | | | n | thoracic | [address] [place] | [place], | | | | | back pain | [place], [place] | [place] [address] | | | | | Scoliosis of | [address] | Phone: | | | | | thoracic | Phone: | [phone] | | | | | spine, | [phone] | Fax: | | | | | unspecified | Fax: | [phone] | | | | | scoliosis | [phone] | | | | | | type | | | +--------+ + + + + + Encounter Details +--------+---------+ + + + | Date | Type | Department | Care Team | Description | +--------+---------+ + + + | 10/13/ | Office | [facility] | Gonzalo Merchant, | Trigger point of | | 2019 | Visit | PHYSIATRY [address] | MD [address] | thoracic region | | | | [address] | [place] | (Primary Dx); | | | | [place] | [address] | Adolescent | | | | [address] | | idiopathic scoliosis | | | | [phone] | | of thoracolumbar | | | [...] + | Blood Pressure | 100/60 | 10/13/2019 1:05 PM | | | | | PST | | + + + + + | Pulse | 60 | 10/13/2019 1:05 PM | | | | | PST [...] + + + + | Weight | 49.9 kg (110 lb) | 10/13/2019 1:05 PM | | | | | PST | | + + + + + | Height | 160 cm (5' 3") | 10/13/2019 1:05 PM | | | | | PST | | + + + + + | Body Mass Index | 19.49 | 10/13/2019 1:05 PM | | | | | PST [...] of this encounter Patient Instructions Patient Instructions Angelia Dee RN - 10/13/2019 1:00 PM PSTReturn for trigger point s. The benefits of physical therapy are not achieved after days or weeks, rather they are achi eved over months to years. An individual should plan to continue physical therapy exercises independently at home indefinitely, even when an individual is feeling better they should s till continue exercises. You are encouraged to maintain physical activity.Inactivity may increase rate of degenera tion when arthritis is involved. Activity helps to maintains function, strength, and mobil ity. Please work towards weight loss, research demonstrates that weight loss is the most effecti ve treatment for back pain. If you have weakness in the legs that is getting slowly worse over time, return to the clin ic for reevaluation. If you have increasing pain, return to the clinic for reevaluation. If you develop profound leg weakness, seek emergent medical attention. If you have bowel and/or bladder incontinence, seek emergent medical attention. documented in this encounter Progress Notes Gonzalo Merchant MD - 10/13/2019 1:00 PM PSTFormatting of this note might be different fro m the original. Gonzalo Merchant MD [address] [place] [address], [address] [place], [place] [id number] FAX: PHYSICAL MEDICINE AND REHABILITATION H&P CHIEF COMPLAINT: Chief Complaint Patient presents with Follow-up scoliosis HISTORY OF PRESENT ILLNESS: Renny Saravia is a 19 y.o. female being seen today in follow-up for complaints of t horacic back. Renny Saravia was last seen on 08/05/19. Previously it was recomme nded that she participate in Physical therapy Today she indicates she would like to be pre scribed an at home TENS unit as this has been helpful in PT. She also indicates that she wou ld like to move forward with previously discussed trigger point injections. Overall Renny Saravia reports that her symptoms are becoming more wide spread. She indicates she now has bilateral thoracic region. Renny Saravia rates the pain as 2 on scale of 1-10. Renny Saravia describes the pain as aching, stabbing, burning or tingling. 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 Her symptoms improve with rest and mildly with NSAIDS. Renny Saravia d oes describe numbness of the right heel . She does report weakness of the arms intermitten tly. She does have bowel and bladder dysfunction. She does not have saddle anesthesia. Treatments for these complaints have included physical therapy and medication. She is curre ntly participating in formal physical therapy. Renny Saravia is currently not curre ntly taking a routine medication for pain. She does take PRN NSAIDS or tylenol. for treatme nt of pain. Renny Saravia's medications, allergies, past medical, surgical, [...] fo r Anxiety (flying). 8 tablet 0 MISC [employer]ODU[employer] PO Take by [...] And Vomiting Penicillins Unknown REVIEW OF SYSTEMS: Review of Systems HENT: Positive for congestion. Respiratory: Positive for cough. Gastrointestinal: Positive for abdominal pain. Musculoskeletal: Positive for back pain and myalgias. Neurological: Positive for tingling and weakness. PHYSICAL EXAMINATION: Body mass index is 19.49 kg/m. Vitals: 10/13/19 1305 BP: 100/60 Pulse: 60 PainSc: 2 PainLoc: Back GENERAL: The patient is well developed and well nourished. She does appear uncomfortable w hen seated. HEENT: Normocephalic and atraumatic. Normal sclerae [...] has no apparent deficits with short or termite helper memory. The cranial nerves appear grossly intact. Sensory exam: sensation intact to light touch in the upper and lower extremities. Motor exam demonstrates grossly intact strength to upper and lower extremities MUSCULOSKELETAL : Preferred seated position leaning towards the left. Scoliotic curvature unchanged since last visit Palpable trigger point To right thoracic erector spina muscle DATABASE: XR SCOLIOSIS ENTIRE SPINE 2-3 VWS competed 03/02/19 was reviewed personally by me in detai l during today's visit. I concur with the results as reported by the Radiologist. The imagi ng demonstrates: "S-shaped scoliosis. Stable levoconvex curvature through the thoracolumbar junction. Mildly progressive dextroconvex curvature in the mid thoracic spine measuring 14 degrees compared to 8 degrees previously. ". ASSESSMENT: 1. Trigger point of thoracic region 2. Adolescent idiopathic scoliosis of thoracolumbar region 3. Focal dystonia PLAN: 1. Renny Saravia returns to the clinic today to discuss her back pain related to sc oliosis. 2. Upon psychical assessment Renny Saravia is noted with a scoliotic curvature as c onfirsmed in her x-rays. She has palpable trigger point to the thoarcic erector spinea muscl e. We discussed treatment With trigger point injections. Renny Saravia was advise d of the termite helper treatment is posture changes, working towards a shoulder back with rhombo id strengthening. She will be scheduled to return for trigger point injections. 3. Renny Saravia indicates that she has completed approximately 4 PT visits. She in dicates that she has approximally 12 remaining visits to be scheduled. An updated order aki l be placed to for her to be evaluted for an at home TENS unit as she indicates this has bee n helpful. We reviewed that the benefits of physical therapy are not achieved after days or weeks, rat her they are achieved over months to years. We dicussed that an individual should plan to c ontinue physical therapy exercises independently at home indefinitely. We dicussed that even when an individual is feeling better they should still continue exercises. 4. We reviewed briefly her recent history of stomach pain. She does report a recent increas ed frequency of NSIAD use. She was causion to discontinue NSAIDS and seek medical advise id stomach pain returns. I spent 15 minutes in visit with Renny Saravia today with the majority of time spen t counselling the patient on her diagnosis, options for her care, and coordinating her care. I, Gonzalo Merchant MD personally performed the services described in this documentation, as scribed by in my presence, Angelia Dee RN and are both accurate and complete. Gonzalo Merchant MD - 10/13/2019 documented in this en counter Plan of [...] ERIN | | | | | | [place] [address] | | | | | | [phone] | | | | | | | | +--------+ + + + + | 09/22/ | Office | Physical Medicine | Gonzalo Merchant, | | | 2019 | Visit | and Rehabilitation | MD [address] | | | | | | [place] | | | | | | [address] | | | | | | | | +--------+ + + + + | 09/29/ | Virtual | Pain Medicine | Peggy Arreola | | 2019 | Office | | [address] | | | | Visit | | [address] | | | | | | [place] [address] [place] | | | | | | [place] [address] | | | | | | [phone] | | | | | | | | +--------+ + + + + | 01/24/ | Office | Family Medicine | Kurt Campbell, | | | 2020 | Visit | | DO [address] | | | | | | [place] | | | | | | [address] | | | | | | | | +--------+ + + + + + + +--------+ + + | Name | Type | Priori | Associated Diagnoses | Order Schedule | | | | ty | | | + + +--------+ + + | * [facility] | Outpatient | Routin | Trigger point of | Ordered: 10/13/2019 | | Physiatry - AMB | Referral | e | thoracic region | | | Referral | | | Adolescent | | | | | | idiopathic scoliosis | | | | | | of thoracolumbar | | | | | | region Focal | | | | | | dystonia | | + + +--------+ + + | Physical Therapy - | Outpatient | Routin | Trigger point of | Ordered: 10/13/2019 | | Ambulatory Referral | Referral | e | thoracic region | | | | | | Adolescent | | | [...]
--- OUTSIDE RECORDS SUMMARY | ~2020-09-05 | XMS | Encounter Summary ---
Demographics + + + | Address | [address] | | | [place] [address] | + + + | Home Phone [...] + + + | Author | [facility] | | | and [place] | + + + | Organization | [facility] | | | [...] | | | | | [place] [address] | | + + + + + | Concha Paulino | ECON | [address] | | | | | [place] [address] | | + + + + + Care Team Providers + +------+ + | Care Agronomy Manager Name | Role | Phone | + +------+ + | Kurt Campbell DO | PCP | | + +------+ + Reason for Visit + +--------+ + | Reason | Onset | Comments | | | Date | | + +--------+ + | ED Follow-up | 05/04/ | | | | 2019 | | + +--------+ + Encounter Details +--------+ + + + + | Date | Type | Department | Care Team | Description | +--------+ + + + + | 05/04/ | Telephone | [facility] | Kurt Campbell, | ED Follow-up | | 2019 | | MEDICINE [place] | DO [address] | | | | | [address] | [place], [place] | | | | | [place], [place] | [address] | | | | | [address] | | | | | | [phone] | | | +--------+ + + + [...] this encounter Miscellaneous Notes Telephone Encounter - Felisa Samuels RN - 05/04/2019 11:35 AM PDTFormatting of shireen s note might be different from the original. [facility] ED follow up call Date of visit: 05/01/19 Patient complaints: vaginal bleeding, post op problem Diagnosis: post op vaginal bleeding following genitourinary procedure (aspiration D&C) How are you feeling since being home: Patient denies fever, back pain, vomiting, heavy vagi nal bleeding or clots since she got home. She states, "I feel fine." Any medications ordered this visit: no Specialty referral: yes, Dr Adalberto Monsalve Referral in place: no, post op complication. Has this patient been seen in the ED 5 or more times in the last 6 months: no Need case management to prevent more ED visits: no Follow up needed: no, scheduled with Dr Adalberto Monsalve. Future Appts: Future Appointments Date Time Provider Department Priddy 05/25/2019 10:00 Haresh Coronel MD [facility] documented in this encounter Plan of Treatment [...] | | | | | [place] [address] | | | | | | [phone] | | | | | | | | +--------+ + + + + | 09/22/ | Office | Physical Medicine | Gonzalo Merchant, | | | 2019 | Visit | and Rehabilitation | MD Dane Johnson | | | | | | [place] | | | | | | [address] | | | | | | | | +--------+ + + + + | 09/29/ | Virtual | Pain Medicine | ElbaPacheco arteagaelle | | | 2019 | Office | | [address] | | | | Visit | | [place] | | | | | | [place] | | | | | | [place] [address] | | | | | | [phone] | | | | | | | | +--------+ + + + + | 01/24/ | Office | Family Medicine | Kurt Campbell, | | | 2020 | Visit | | DO [address] | | | | | | [place] | | | | | | [id number] | | | | | | | | +--------+ + + + + documented as of this encounter Visit Diagnoses Not on filedocumented in this encounter
--- OUTSIDE RECORDS SUMMARY | ~2020-09-05 | XMS | Encounter Summary ---
Demographics + + + | Address | [address] | | | [place] [address] | + + + | Home Phone [...] | | | | | [place] [address] | | + + + + + | Concha Paulino | ECON | [address] | | | | | [place] [address] | | + + + + + Care Team Providers + +------+ + | Care Sexual Assault Counselor Name | Role | Phone | + +------+ + | Kurt Campbell DO | PCP | | + +------+ + Encounter Details +--------+ + + + + | Date | Type | Department | Care Team | Description | +--------+ + + + + | 06/02/ | Abstract | [facility] | Kurt Campbell, | | | 2019 | | MEDICINE [place] | DO [address] | | | | | [address] | [place] | | | | | [place] | [address] | | | | | [address] | | | | | | [phone] | | | +--------+ + + + [...] | | | | | [place] [address] | | | | | | [phone] | | | | | | | | +--------+ + + + + | 09/22/ | Office | Physical Medicine | Gonzalo Merchant, | | | 2019 | Visit | and Rehabilitation | MD Dane Johnson | | | | | | [place] | | | | | | [address] | | | | | | | | +--------+ + + + + | 09/29/ | Virtual | Pain Medicine | Peggy Arreola | | | 2019 | Office | | [address] | | | | Visit | | [place] | | | | | | [place] | | | | | | [place] [address] | | | | | | [phone] | | | | | | | | +--------+ + + + + | 01/24/ | Office | Family Medicine | Kurt Campbell, | | | 2020 | Visit | | DO [address] | | | | | | [place] | | | | | | [address] | | | | | | | | +--------+ + + + + documented as of this encounter Procedures + +--------+ + + + | Procedure Name | Priori | Date/Time | Associated Diagnosis | Comments | | | ty | | | | + +--------+ + + + | EXTERNAL LAB: PAP | Routin | 04/25/2020 | | Results for this | | SMEAR | e | | | procedure are in the | | | | | | results section. | + +--------+ + + + | EXTERNAL LAB: HIGH | Routin | 04/25/2020 | | Results for this | | RISK HPV | e | | | procedure are in the | | | | | | results section. | + +--------+ + + + documented in this encounter Results External Lab: PAP Smear (04/25/2020) + + + + + + | Component | Value | Ref Range | Performed | Pathologist | | | | | At | Signature | + + + + + + | Pap Smear, | Low grade squamous | | | | | External | intraepithelial lesion; | | | | | | cellular changes | | | | | | encompassing those | | | | | | associ | | | | + + + + + + External Lab: High Risk HPV (04/25/2020) + + + + + + | Component | Value | Ref Range | Performed | Pathologist | | | | | At | Signature | + + + + + + | EXTERNAL: | Positive | | | | | HIGH RISK | | | | | | HPV | | | | | + + + + + + documented in this encounter Visit Diagnoses Not on filedocumented in this encounter"
--- OUTSIDE RECORDS SUMMARY | ~2020-09-05 | XMS | Encounter Summary ---
Demographics + + + | Address | [address] | | | [place] [address] | + + + | Home Phone [...] | | | | | [place] [address] | | + + + + + | Concha Paulino | ECON | [address] | | | | | [place] [address] | | + + + + + Care Team Providers + +------+ + | Care Car Wash Attendant Automatic Name | Role | Phone | + +------+ + | Tomeka Gomez | PCP | | | Fabian DO | | | + +------+ + Encounter Details +--------+ + + + + | Date | Type | Department | Care Team | Description | +--------+ + + + + | 08/17/ | Hospital | [facility] | Tomeka Gomez | Uterine size-date | | 2017 | Encounter | [address] | Fatimah Peralta DO | discrepancy in | | | | [place], [place] | [address] | trimester | | | | [address] | [place], [place] | | | | | [phone] | [address] | | | | | [...] | | | | | [place] [address] | | | | | | [phone] | | | | | | | | +--------+ + + + + | 09/22/ | Office | Physical Medicine | Gonzalo Merchant, | | | 2019 | Visit | and Rehabilitation | MD Vela [address] Huey Johnson | | | | | | [place] | | | | | | [address] | | | | | | | | +--------+ + + + + | 09/29/ | Virtual | Pain Medicine | ElbaPacheco arteagaelle | | | 2019 | Office | | [address] | | | | Visit | | [place] | | | | | | [place], | | | | | | [place] [address] | | | | | | [phone] | | | | | | | | +--------+ + + + + | 01/24/ | Office | Family Medicine | Kurt Campbell, | | | 2020 | Visit | | DO [address] | | | | | | [place] | | | | | | [address] | | | | | | | | +--------+ + + + + documented as of this encounter Visit Diagnoses + + | Diagnosis | + + | Uterine size-date discrepancy in third trimester Uterine size date discrepancy, | | antepartum condition or complication | + + documented in this encounter"
--- OUTSIDE RECORDS SUMMARY | ~2020-09-05 | XMS | Encounter Summary ---
Demographics + + + | Address | [address] | | | [place] [address] | + + + | Home Phone [...] | | | | | [place] [address] | | + + + + + | Concha Zeeshanletty | ECON | [address] | | | | | [place] [address] | | + + + + + Care Team Providers + +------+ + | Care Supervisor [employer] Name | Role | Phone | + +------+ + | Kutr Campbell DO | PCP | | + [...] | Adolescent | Gonzalo Weir MD | PHYSICAL | | | Required | | idiopathic | [address] | THERAPY - | | | | | scoliosis of | [address] | [place] | | | | | | [place], | [facility] | | | | | thoracolumba | [place] [address] | [address] | | | | | r region | Phone: | ST | | | | | Trigger | [phone] | [facility] | | | | | point of | Fax: | [place], [place] | | | | | thoracic | [phone] | [address] | | | | | region | | Phone: | | | | | | | [phone] | | | | | | | Fax: | | | | | | | [phone] | +--------+ + + + + + [...] midline | [address] | [address] | | | | n | thoracic | [address] [place] | [place], | | | | | back pain | [place], [place] | [place] [address] | | | | | Scoliosis of | [address] | Phone: | | | | | thoracic | Phone: | [phone] | | | | | spine, | [phone] | Fax: | | | | | unspecified | Fax: | [phone] | | | | | scoliosis | [phone] | | | | | | type | | | +--------+ + + + + + Encounter Details +--------+---------+ + + + | Date | Type | Department | Care Team | Description | +--------+---------+ + + + | 08/05/ | Office | [facility] | Gonzalo Merchant, | Adolescent | | 2019 | Visit | PHYSIATRY [address] | MD [address] | idiopathic scoliosis | | | | [address] | [place] | of thoracolumbar | | | | [place] | [address] | region (Primary Dx); | | | | [address] | | Trigger point of | | | | [phone] | | thoracic region; | | | | | | Focal dystonia | +--------+---------+ + + + Social [...] + + + | Blood Pressure | 98/71 | 08/05/2019 8:56 AM | | | | | PDT | | + + + + + | Pulse | 109 | 08/05/2019 8:56 AM | | | | | PDT [...] Weight | 47.6 kg (105 lb) | 08/05/2019 8:56 AM | | | | | PDT | | + + + + + | Height | 160 cm (5' 3") | 08/05/2019 8:56 AM | | | | | PDT | | + + + + + | Body Mass Index | 18.6 | 08/05/2019 8:56 AM | | | | | PDT [...] encounter Patient Instructions Patient Instructions Janee Rivera, Web Press Jogger - 08/05/2019 8:40 AM PDTPhysic al therapy has been prescribed. Please participate in physical therapy. If you have not be contacted for an appointment with physical therapy within one week, please contact the [facility]. Once you have completed physical therapy please continue the home exercise program as o utline by physical therapy, indefinitely. documented in this encounter Progress Notes Gonzalo Merchant MD - 08/05/2019 8:40 AM PDTFormatting of this note might be different fro m the original. Gonzalo Merchant MD [address] [place] [address], [address] [place] [address] FAX: PHYSICAL MEDICINE AND REHABILITATION H&P CHIEF COMPLAINT: Chief Complaint Patient presents with Back Pain HISTORY OF PRESENT ILLNESS: Renny Saravia s a 19 y.o. female being seen today at t he request of Kurt Campbell DO for the complaint of thoracic back pain. The symptoms have been gradually worsening. Renny Saravia was last seen in office in 2014. It was re commended that she participate in physical therapy. Renny Saravia reports that she c ompleted physical therapy. Renny Saravia rates the pain as moderate. The symptoms are continuous. Renny Hernandez describes the pain as burning. Renny Saravia does not report any change in bowel or bladder function or saddle ane sthesia recently. Her symptoms improve with rest. Her symptoms worsen with standing, sitting and kneeling. Renny Saravia has tried NSAIDS. PAST MEDICAL HISTORY: Past Medical History: Diagnosis Date Abdominal pain Adverse food reaction Allergic rhinitis Anaphylaxis Anemia Anxiety Arthralgia Asthma Blood in stool Chest pain Depression Environmental allergies History of pneumonia Hypotension Kidney cysts right Migraine OCD (obsessive compulsive disorder) Oppositional defiant disorder Substance abuse (HCC) PAST SURGICAL HISTORY: Past Surgical History: Procedure Laterality Date COLONOSCOPY age 16 annual screening potentially recommended (cousin with early colon cancer. cousin ag ed 26, father aged 42) COLONOSCOPY N/A 05/27/2019 Procedure: COLONOSCOPY; Surgeon: Kanu Kidd MD; Location: [facility] DENTAL SURGERY UPPER GASTROINTESTINAL ENDOSCOPY CURRENT MEDICATIONS: Current Outpatient Medications Medication Sig [...] tablet by mouth Daily. 30 tablet 0 diphenhydrAMINE (BENADRYL) 25 mg tablet [...] [Nitrofuran Derivatives] Nausea And Vomiting Penicillins Unknown SOCIAL HISTORY: The patient reports that she quit smoking about 2 years ago. She has a 3.00 pack-year smok ing history. She uses smokeless tobacco. She reports that she drank about 3.0 oz of alcohol per week. She reports that she has current or past drug history. Drug: Marijuana. FAMILY HISTORY: Family History Problem Relation Age of Onset [...] Hx Seizures Neg Hx Sudden Neg Hx REVIEW OF SYSTEMS: ROS GENERALLY: No fever, no night sweats,+anemia,+ fatigue, + recent profound weight changes. EYES: No eye problems, no use of corrective lenses, no eye injury, no double vision, no bl indness. EARS, NOSE, AND THROAT: No changes in taste or smell, + hearing difficulty,+ ringing in th e ears, no ear drainage, no dizziness, no voice changes, no difficulty swallowing, no signif icant snoring, no sleep apnea, no sinus problems, [...] no loss of consciousness, no tremor/shaking, no seizures,+ heada ches, + migraine, + memory loss, no speech difficulty,+ confusion and no numbness of face. PSYCHIATRIC: +depression, +sleeping difficulty,+ anxiety, no bipolar disorder, no psychotic episodes. CARDIOVASCULAR: No heart attacks, no heart murmur,+heart fluttering,+ chest pain, no ankle swelling. LUNG DISEASE: No shortness of breath, no cough, no tuberculosis, no bloody cough, no asth ma, no emphysema/COPD. GASTROINTESTINAL: No bowel disease, no nausea or vomiting, no rectal bleeding, no constipa tion, no stool incontinence, no liver disease, no gallbladder disease, no abdominal pain, no ulcers. KIDNEY DISEASE: + urinary frequency, no painful or difficult urination, no incontinence. ENDOCRINE: No diabetes, no thyroid disease, no osteopenia or osteoporosis, no breast drain age. SKIN: No breast lumps, no skin changes, no rashes, no itches. HEMATOLOGIC/LYMPHATIC: No enlarged lymph nodes, no easy or unusual bleeding, no personal h istory of cancer. RHEUMATOLOGIC: +joint arthritis, no rheumatoid arthritis. PHYSICAL EXAMINATION: Blood pressure 98/71, pulse 109, height 1.6 m (5' 3"), weight 47.6 kg (105 lb), not current ly . Body mass index is 18.6 kg/m. GENERAL: She does appear uncomfortable when seated. HEENT: HEAD/FACE: EYES: Normocephalic and atraumatic. There are no areas of recent trauma. Normal sclerae without icterus. SKIN There are not scars in the lumbar region. CHEST: The patient is in no acute respiratory distress with unlabored respirations. HEART: There is not lower extremity edema. ABDOMEN: The patient is not overweight. NEUROLOGIC: The patient is awake, alert, and oriented to time, place, person. She follows simple and complex commands. Her speech is fluent. She comprehends speech well. She has no apparent deficits with short or plane runner memory. She has appropriate fund of knowledge Cranial nerves appear grossly intact. MUSCULOSKELETAL Right thoracic erector spinae muscle is dystonic With palpable trigger point in the right lower trapezius , right rhomboids, and right erect or spinae. RADIOGRAPHIC REVIEW: Scoliosis series completed on 03/02/19 was reviewed personally by me , I concur with the res ults as reported by the Radiologist. The imaging demonstrates: S-shaped scoliosis. Stable le voconvex curvature through the thoracolumbar junction. Mildly progressive dextroconvex curva ture in the mid thoracic spine measuring 14 degrees compared to 8 degrees previously. IMPRESSION: 1. Adolescent idiopathic scoliosis of thoracolumbar region 2. Trigger point of thoracic region 3. Focal dystonia PLAN: 1. Renny Saravia presents to clinic today with chief complaint of thoracic back alejandra n. 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 Treatment options includes phys ical therapy, medication, posture changes, trigger point injections and last resort botox in jections. 2. Order for physical therapy was placed today for the treatment of thoracic back pain. W e discussed that the benefits of physical therapy are not achieved after days or weeks, rath er they are achieved over months to years. We discussed that an individual should plan to c ontinue physical therapy exercises independently at home indefinitely. We discussed that shelby n when an individual is feeling better they should still continue exercises. 3. Today we discussed medication treatment options. No medication changes were made today d ue to possible interaction with current medications. May consider medications in the future that should be managed by Kurt Campbell DO. 4. Today we discussed trigger point injections for the treatment of thoracic trigger points . Reviewed that injections will not fix the problem but may help reduce severity of pain. In jections may be completed up to 3 times per year. May consider trigger point injections in t he future. Renny Saravia may call our office if she would like to consider trigger p oint injections. Order should be placed and scheduled for 20 min appointment. If symptoms persists following conservative care may consider botox injections in the futur e. We discussed that the effects of botulinum toxin take several days to take effect (approx imately one week). The effects of botulinum toxin usually reach peak effect at one month aft er injection. Renny Saravia was advised effects of botulinum toxin are semi-perman ent, meaning that once botulinum toxin is injected there is no way to reverse the effects of the botulinum toxin. Reviewed the potential of weakening dystonic muscle in turn causing po tential increase of pain. The effects of botulinum toxin may last from three to six months, (four months on average). 5. Renny Saravia should return to clinic as scheduled to review physical therapy. Eve clark consider trigger point injections in the future. In summary: We reviewed how formation of dystonia and trigger points are most likely secondary to her u nderlying scoliosis. She is encouraged to participate in physical therapy with a goal of li fe long home exercise program. She was offered trigger point injections, but would like to try therapy first. If she decides to move forward with trigger point injections she can jose l the office and schedule them. If physical therapy and trigger point injections fail, we m ay consider medication changes, but this could be problematic as most medications would inte ract with her current medication regimen. As a last resort we could try Botox for focal dys nakia of right thoracic erector spinae muscle. Thank you for allowing me to be involved in the care of your patient. If you have any ques tions regarding the care of your patient please don't hesitate to call. Approximately 45 minutes was spent face to face with Renny Saravia, over half of wh ich was spent formulating and discussing their medical treatment plan. I, Gonzalo Merchant MD personally performed the services described in this documentation, as scribed by in my presence, STEFF Wisdom and are both accurate and complete. Gonzalo Merchant MD - 08/05/2019 documented in this en counter Plan of [...] | | | | | [place] [address] | | | | | | [phone] | | | | | | | | +--------+ + + + + | 09/22/ | Office | Physical Medicine | Gonzalo Merchant, | | 2019 | Visit | and Rehabilitation | MD Vela [address] H[address]y Johnson | | | | | | [place] | | | | | | [address] | | | | | | | | +--------+ + + + + | 09/29/ | Virtual | Pain Medicine | Peggy Arreola | | | 2019 | Office | | [address] | | | | Visit | | [place] | | | | | | [place] | | | | | | [place] [address] | | | | | | [phone] | | | | | | | | +--------+ + + + + | 01/24/ | Office | Family Medicine | Kurt Campbell, | | | 2020 | Visit | | DO Evon [address] | | | | | | [place] | | | | | | [address] | | | | | | | | +--------+ + + + + + + +--------+ + + | Name | Type | Priori | Associated Diagnoses | Order Schedule | | | | ty | | | + + +--------+ + + | Physical Therapy - | Outpatient | Routin | Adolescent | Ordered: 08/05/2019 | | Ambulatory Referral | Referral | e | idiopathic scoliosis | | | | | | of thoracolumbar | | | | | | region Trigger | | | | | | point of thoracic | | | | | | region | | + + +--------+ + + documented as of this encounter Visit Diagnoses + + | Diagnosis | + + | Adolescent idiopathic scoliosis of thoracolumbar region - Primary Scoliosis (and | | kyphoscoliosis), idiopathic | + + | Trigger point of thoracic region Backache, unspecified | + + | 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 | + + documented in this encounter
--- OUTSIDE RECORDS SUMMARY | ~2020-09-05 | XMS | Encounter Summary ---
Demographics + + + | Address | [address] | | | [place] [address] | + + + | Home Phone [...] Author + + + | Author | [facility] | | | and [place] | + + + | Organization | [facility] | | | [...] | | | | | [place] [address] | | + + + + + | Concha Paulino | ECON | [address] | | | | | [place] [address] | | + + + + + Care Team Providers + +------+ + | Care Wholesale And Retail Merchant Name | Role | Phone | + +------+ + | Leonid Osorio MD | PCP | | + +------+ + Reason for Visit +---------+--------+ + | Reason | Onset | Comments | | | Date | | +---------+--------+ + | Results | 02/07/ | | | | 2019 | | +---------+--------+ + Encounter Details +--------+ + + + + | Date | Type | Department | Care Team | Description | +--------+ + + + + | 02/07/ | Telephone | [facility] | Serjio Clark | Results | | 2019 | | CARE [address] | MD Leela [address] | | | | | [place] | [place] | | | | | [address] | [address] | | | | | [phone] | | | +--------+ + + + [...] Encounter - Jenn Krishnamurthy Cert MA - 02/09/2019 5:01 PM PDTCalled pt and notifie d her of note and she understood and had no questions. elephone [place] - 02/09/2019 4:57 PM PDTPatient returned call, she states she can be better reached at this # [phone]. Please advise. elephone Encounter - Jenn Krishnamurthy Cert MA - 02/09/2019 4:49 PM PDTLeft message for pt to call sandi pierre. elephone Serjio Serna MD - 02/07/2019 12:41 AM PDTNotify Renny, Recent test for rheumatoid arthritis sent from urgent care was normal. No change in plan. ERS documented in this encounter Plan of Treatment [...] | | | | | [place] [address] | | | | | | [phone] | | | | | | | | +--------+ + + + + | 09/22/ | Office | Physical Medicine | Gonzalo Merchant, | | | 2019 | Visit | and Rehabilitation | [address] | | | | | | [place] | | | | | | [address] | | | | | | | | +--------+ + + + + | 09/29/ | Virtual | Pain Medicine | Peggy Arreola | | | 2019 | Office | | [address] | | | | Visit | | [place] | | | | | | [place], | | | | | | [place] [address] | | | | | | [phone] | | | | | | | | +--------+ + + + + | 01/24/ | Office | Family Medicine | Kurt Campbell, | | | 2020 | Visit | | DO [address] | | | | | | [place] | | | | | | [id number] | | | | | | | | +--------+ + + + + documented as of this encounter Visit Diagnoses Not on filedocumented in this encounter"
--- OUTSIDE RECORDS SUMMARY | ~2020-09-05 | XMS | Encounter Summary ---
Demographics + + + | Address | [address] [facility] | | | [place] [address] | + + + | Home Phone [...] | | | | | [place] [address] | | + + + + + | Concha Paulino | ECON | [address] | | | | | [place] [address] | | + + + + + Care Team Providers + +------+ + | Care Applications Support Lead Name | Role | Phone | + +------+ + | Leonid Osorio MD | PCP | | + +------+ + Reason for Visit + + + | Reason | Comments | + + + | Rash | Room 5: multiple rashes all over body x 1 month; follow up | | | bilateral knee pain and swelling - mostly left knee | + + + | Knee Pain | | + + + Encounter Details +--------+---------+ + + + | Date | Type | Department | Care Team | Description | +--------+---------+ + + + | 02/04/ | Office | [facility] | Serjio Clark | Tinea corporis | | 2019 | Visit | [address] | MD Leela [address] | (Primary Dx); Joint | | | | [place], [place] | [address] [place], [place] | stiffness of both | | | | [phone] | [id number] | knees; Stiffness of | | | | [phone] | | joints of both hands | +--------+---------+ + + + Social History [...] + | Blood Pressure | 111/76 | 02/04/2019 2:36 PM | | | | | PDT | | + + + + + | Pulse | 101 | 02/04/2019 2:36 PM | | | | | PDT | | + + + + + | Temperature | 36.9 C (98.5 F) | 02/04/2019 2:36 PM | | | | | PDT | | + + + + + | Respiratory Rate | 16 | 02/04/2019 2:36 PM | | | | | PDT | | + + + + + | Oxygen Saturation | 99% | 02/04/2019 2:36 PM | | | | | PDT | | + + + + + | Inhaled Oxygen | - | - | | | Concentration | | | | + + + + + | Weight | 47.9 kg (105 lb 9.6 | 02/04/2019 2:36 PM | | | | oz) | PDT | | + + + + + | Height | 157.5 cm (5' 2") | 02/04/2019 2:36 PM | | | | | PDT | | + + + + + | Body Mass Index | 19.31 | 02/04/2019 2:36 PM | | | | | [...] Instructions Patient Instructions Serjio Clark MD - 02/04/2019 3:08 PM PDTWash areas of rash w ith soap and water regularly. Avoid scratching involved areas. Use terbinafine 250 mg by mouth daily for 2 weeks for fungal infection of the skin. Take Advil or Aleve with food as needed for joint pain and swelling. Avoid increased physical activity and rest when joints are tender. You will be contacted with rheumatoid arthritis test once available. Establish care and follow-up with [facility] family medicine clinic as planned. Return in the interim with any new or progressive associated symptoms. Ringworm of the Skin Ringworm is a fungal infection of the skin. Despite the name, a worm doesn't cause it. The cause of ringworm is a fungus that infects the outer layers of the skin. It is also not caus ed by bed bugs, scabies, or lice. These are totally different. The medical term for ringworm is tinea. It can affect most parts of your body, although it seems to do better in moist areas of the body and around hair. It can be on almost any part of your body, including: Arms, hands, legs, chest, feet, and back Scalp Herrera Groin Between the toes Depending on where it is located, sometimes the name changes: Tinea capitis (scalp) Tinea cruris (groin) Tinea corporis (body) Tinea pedis (feet) Causes Ringworm is very common all over the world, including the [place] It can take less than 1 week up to 2 weeks before you develop the infection after being exposed. So, you may not figure out the exact cause. It is spread through direct contact with: An infected person or animal Infected soil, or objects such as towels, clothing, and madera Symptoms At first you might not notice ringworm. Or you may just see a small, red, often raised itch y spot or pimple. Sometimes there may only be one spot. At other times there may be several. Ringworm can look slightly different on different parts of the body, but there are some thi ngs are always present: Irregular, round, oval or ring-shaped, which is why it's called ringworm Clearer or vacuum drier tender color at the center, since it spreads from the center of the spot out ring Red or inflamed look Raised Itchy Scaly, dry, or flaky Home care Follow these tips to help care for yourself at home: Leave it alone. Don't scratch at the rash or pick it. This can increase the chance of in fection and scarring. Take medicine as prescribed. If you were prescribed a cream, apply it exactly as directe d. Make sure to put the cream not just on the rash, but also on the skin 1 or 2 inches aroun d it. Medicine by mouth issometimes needed, particularly for ringworm on the scalp.Take it as directed and until your healthcare provider says to stop. Keep it from spreading to others. Untreated ringworm of the skin iscontagiousby skin -to-skin contact. Your child may return to school 2 days after treatment has started. Prevention To some degree, prevention depends on what part of your body was affected. In general, the following good hygiene can help. Clean upafter you get dirty or sweaty, or after using a locker room. When possible, don tshare madera and brushes. Avoid having your skin and feet wet or damp for long periods. Wear clean, loose-fitting underwear. Follow-up care Follow up with your healthcare provider as advised by our staff if the rash does not improv e after 10 days of treatment or if the rash spreads to other areas of the body. When to seek medical advice Call your healthcare provider right awayif any of these occur: Redness around the rash gets worse Fluid drains from the rash Fever of100.4F (38C) or higher, or as directed by your healthcare provider Date Last Reviewed: 06/25/201619997178-0917 [employer]. [address] [place] [address], [place] [address]. All righ ts reserved. This information is not intended as a substitute for professional medical care. Always follow your healthcare professional's instructions. documented in this encounter Progress Notes Serjio Clark MD - 02/04/2019 2:30 PM PDTFormatting of this note might be differen t from the original. 02/04/2019 Renny Saravia 2000 Assessment: 1. Tinea corporis terbinafine (LAMISIL) 250 MG tablet POCT Test, Urine, QUAL 2. Joint stiffness of both knees CCP Antibodies, IgG IgA 3. Stiffness of joints of both hands CCP Antibodies, IgG IgA One-month history of spreading rash suggestive of diffuse tinea corporis, less likely pityr iasis rosea. Given the distribution and number of lesions, we opted against topical treatme nt in favor of Lamisil. History of intermittent joint pain and stiffness suspicious for inf lammatory arthropathy, currently asymptomatic. She was given the following instructions, pr escription and will follow-up with a new primary care provider at [facility]. Plan: Wash areas of rash with soap and water regularly. Avoid scratching involved areas. Use terbinafine 250 mg by mouth daily for 2 weeks for fungal infection of the skin. Take Advil or Aleve with food as needed for joint pain and swelling. Avoid increased physical activity and rest when joints are tender. You will be contacted with rheumatoid arthritis test once available. Establish care and follow-up with [facility] family medicine clinic as planned. Return in the interim with any new or progressive associated symptoms. The risks and benefits, including potential side effects of medication changes, have been d iscussed with the patient. We agreed on implementing the current plan. The note may have been dictated using [employer] voice recognition software. It may have not b een proofread in entirety. Minor errors in grammar may occur. History: Renny Saravia is a 19 y.o. female here for Rash (Room 5: multiple rashes all over b manda x 1 month; follow up bilateral knee pain and swelling - mostly left knee) and Knee Pain Five-week history of minimally pruritic patches of rash first noted on the lower abdomen an d since spreading to across the abdomen, upper back, chest, groin and arms without tendernes s, itching, scabbing, open sores or drainage. She has counted a total of 32 small skin lesi ons in total on her torso and extremities. No history of athlete's foot, groin rash or othe r skin fungal infections. No rash on the face or scalp. No recent fever, chills, nausea or vomiting. No associated change in soaps, detergents or fabric softeners. She has not used topical medication for improvement. Denies fever, chills, nausea, vomiting, sore throat, n nia congestion, cough or other URI symptoms. Sexually active without contraception, last menstrual period was 30 days ago, requests preg mario alberto test. Also reports episode of bilateral knee pain back in October which resolved. She developed recurrent symptoms about 3 weeks ago with some pain and stiffness in her knees and hands, w orse in the morning, now much better and relatively asymptomatic. She wonders about lupus o r rheumatoid arthritis. When symptoms flare, hands are usually painful and stiff in the mor dawson until they loosen up. Not bad lately. He has taken ibuprofen for symptoms. She was seen here late October by Dr. Aguayo for evaluation of knee pain and had negat gerber CBC, CMP, ESR, CRP and rheumatoid factor. She was encouraged to follow-up with her PCP. Current medications, past medical, surgical, family and social histories were reviewed and updated where appropriate. Allergies Allergen Reactions Rey Flavor Hives Nystatin Swelling Omeprazole Shortness Of Breath Penicillins Hives and Nausea And Vomiting Sulfa Antibiotics Shortness Of Breath Venlafaxine Anaphylaxis Aspirin Other (See Comments) fever Fish Oil Whooping cough injection/ extreme reaction Nitrofuran Derivatives Nausea And Vomiting Penicillins BP 111/76 | Pulse 101 | Temp 36.9 C (98.5 F) (Temporal) | Resp 16 | Ht 1.575 m (5' 2") | Wt 47.9 kg (105 lb 9.6 oz) | LMP 01/09/2019 | SpO2 99% | BMI 19.31 kg/m Physical exam: Well-appearing, relatively thin, young female in no distress. Somewhat disheveled appearan ce with oily hair. Skin: 2 cm diameter oval patch of rash on the left lower abdomen with slightly raised, well demarcated outer margin and relative central clearing with mild scaling. Other similar rou nded lesions are noted on the torso, upper and lower back without Johnathan tree pattern and sparing the central back. Small, less than or equal to 5 mm lesions are noted on the upper and lower extremities including the back of the hands but sparingly palms and soles. No le sions on the scalp, around the ears or between the toes. HEENT: Clear conjunctiva without exudates. Moist oral membranes. Pharynx unremarkable. Neck: Supple without adenopathy. Chest: Clear to auscultation. Abdomen: Flat with normally active bowel sounds soft and nontender. No organomegaly or mas ses. Musculoskeletal: Examination of the hands and wrists without synovial tenderness or boggine ss. Opens and closes the hands normally without stiffness. No pain with range of motion of the wrist. Both knees are without erythema, warmth, edema or effusion. No joint line tend erness. Normal active and passive range of motion of both knees without pain. No ligamenti s laxity or pain with Tim's. Negative anterior and posterior drawer signs bilaterally. Neurovascular: Intact radial and pedal pulses. Normal light touch sensation and capillary refill in both hands and feet. Recent Results (from the past 24 hour(s)) POCT Test, Urine, QUAL Result Value Ref Range Test, Urine, POC Negative Negative Internal QC Acceptable Acceptable Specific [place], POC 1.010, 1.015, 1.020, 1.025 Lot Number [id number] Expiration Date 2020-02-03 Results for orders placed or performed in visit on 11/19/18 Comprehensive Metabolic Panel Result Value Ref Range [...] K/uL RBC 4.92 3.70 - 5.20 M/uL Hemoglobin 14.8 11.5 - 16.0 g/dL Hematocrit 43.9 34.0 - 47.0 % MCV 89.2 [...] Immature Granulocytes 0.01 0.00 - 0.03 K/uL Sedimentation Rate Result Value Ref Range ESR 8 <20 mm/hr Rheumatoid Factor, Quant Result Value Ref Range RHEUMATOID FACTOR <10.0 0.0 - 13.9 IU/mL Serjio Clark M.D. documented i n this encounter Plan of Treatment +--------+ + [...] | | | | | [place] [address] | | | | | | [phone] | | | | | | | | +--------+ + + + + | 09/22/ | Office | Physical Medicine | Gonzalo Merchant, | | | 2019 | Visit | and Rehabilitation | [address] | | | | | | [place] | | | | | | [address] | | | | | | | | +--------+ + + + + | 09/29/ | Virtual | Pain Medicine | Peggy Arreola | | | 2019 | Office | | [address] | | | | Visit | | [place] | | | | | | [place], | | | | | | [place] [address] | | | | | | [phone] | | | | | | | | +--------+ + + + + | 01/24/ | Office | Family Medicine | Олег Campbelldilcia High, | | | 2020 | Visit | | DO [address] | | | | | | [place] | | | | | | [address] | | | | | | | | +--------+ + + + + documented as of this encounter Procedures + +--------+ + + + | Procedure Name | Priori | Date/Time | Associated Diagnosis | Comments | | | ty | | | | + +--------+ + + + | POCT TEST, | Routin | 02/04/2019 | Tinea corporis | Results for this | | URINE, QUAL | e | 3:23 PM | | procedure are in the | | | | PDT | | results section. | + +--------+ + + + | CCP ANTIBODIES, IGG | Routin | 02/04/2019 | Joint stiffness of | Results for this | | IGA | e | 3:05 PM | both knees | procedure are in the | | | | PDT | Stiffness of joints | results section. | | | | | of both hands | | + +--------+ + + + documented in this encounter Results POCT Test, Urine, QUAL (02/04/2019 3:23 PM PDT) + + + + + [...] | 1.010, 1.015, | | | | [place], | | 1.020, 1.025 | | | | POC | | | | | + + + + + + | Lot Number | [id number] | | | | + + + + + + | Expiration | 2020-02-03 | | | | | Date | | | | | + + + + + + + + | Specimen | + + | Urine | + + CCP Antibodies, IgG IgA (02/04/2019 3:05 PM PDT) + + + + + + | Component | Value | Ref Range | Performed | Pathologist | | | | | At | Signature | + + + + + + | Cyclic | 2Comment: | 0 - 19 units | REFERENCE | | | Citrullin | | | LAB [facility] | | | Peptide Ab | Negative | | - BKR | | | | <20 | | | | | | | | | | | | Weak positive | | | | | | 20 - 39 | | | | | | | | | | | | Moderate positive 40 | | | | | | - 59 | | | | | | | | | | | | Strong positive | | | | | | >59 | | | | + + + + + + + + | Specimen | + + | Blood | + + + + + | Narrative | Performed At | + + + | Performed at: 01 - [facility] [address] [facility], | REFERENCE LAB | | [place], [place] [id number] Cylinder Valve Repairer: Kelsey Armendariz MD, Phone: | YIMI - BESS | | [phone] | | + + + + + + + + | Performing | Address | City/State/Zipcode | Phone Number | | Organization | | | | + + + + + | REFERENCE LAB | [address] | [place] | [phone] | | [facility] | [place] [facility] | [address] | | + + + + + documented in this encounter Visit Diagnoses + + | Diagnosis | + + | Tinea corporis - Primary Dermatophytosis of the body | + + | Joint stiffness of both knees | + + | Stiffness of joints of both hands | + + documented in this encounter
--- OUTSIDE RECORDS SUMMARY | ~2020-09-05 | XMS | Encounter Summary ---
Demographics + + + | Address | [address] [facility] | | | [place] [address] | + + + | Home Phone [...] | | | | | [place] [address] | | + + + + + | Concha Paulino | ECON | [address] | | | | | [place] [address] | | + + + + + Care Team Providers + +------+ + | Care Directional Survey Drafter Name | Role | Phone | + +------+ + PCP | Unavailable | + +------+ + Encounter Details +--------+ + + + + | Date | Type | Department | Care Team | Description | +--------+ + + + + | 08/01/ | Hospital | [facility] | Josh Christianson, | | | 2009 | Encounter | MED CTR EMERGENCY | MD [address] | | | | | CENTER [address] | [place], [place] | | | | | [place], [place] | [address] | | | | | [address] | | | | | | [phone] | | | +--------+ + + + [...] | | | | | [place] [address] | | | | | | [phone] | | | | | | | | +--------+ + + + + | 09/22/ | Office | Physical Medicine | Gonzalo Merchant, | | | 2019 | Visit | and Rehabilitation | MD [address] | | | | | | [place] | | | | | | [id number] | | | | | | | | +--------+ + + + + | 09/29/ | Virtual | Pain Medicine | Peggy Arreola | | | 2019 | Office | | [address] | | | | Visit | | [place] | | | | | | [place], | | | | | | [place] [address] | | | | | | [phone] | | | | | | | | +--------+ + + + + | 01/24/ | Office | Family Medicine | Kurt Campbell, | | | 2020 | Visit | | DO [address] | | | | | | [place] | | | | | | [id number] | | | | | | | | +--------+ + + + + documented as of this encounter Visit Diagnoses Not on filedocumented in this encounter"
--- OUTSIDE RECORDS SUMMARY | ~2020-09-05 | XMS | Encounter Summary ---
Demographics + + + | Address | [address] [facility] | | | [place] [address] | + + + | Home Phone [...] | | | | | [place] [address] | | + + + + + | Concha Paulino | ECON | [address] | | | | | [place] [address] | | + + + + + Care Team Providers + +------+ + | Care White Work Cleaner Name | Role | Phone | + +------+ + PCP | Unavailable | + +------+ + Encounter Details +--------+ + + + + | Date | Type | Department | Care Team | Description | +--------+ + + + + | 04/29/ | Hospital | [facility] | Anisa Hobson | | | 2008 | Encounter | MED CTR EMERGENCY | MD [address] | | | | | CENTER [address] | [facility], | | | | | [place], [place] | [place] [address] | | | | | [address] | [phone] | | | | | [phone] | | | +--------+ + + + [...] | | | | | [place] [address] | | | | | | [phone] | | | | | | | | +--------+ + + + + | 09/22/ | Office | Physical Medicine | Gonzalo Merchant, | | | 2019 | Visit | and Rehabilitation | [address] | | | | | | [place] | | | | | | [address] | | | | | | | | +--------+ + + + + | 09/29/ | Virtual | Pain Medicine | Peggy Arreola | | | 2019 | Office | | [address] | | | | Visit | | [place] | | | | | | [place] | | | | | | [place] [address] | | | | | | [phone] | | | | | | | | +--------+ + + + + | 01/24/ | Office | Family Medicine | Kurt Campbell, | | | 2020 | Visit | | DO [address] | | | | | | [place] | | | | | | [phone] | | | | | | | | +--------+ + + + + documented as of this encounter Visit Diagnoses Not on filedocumented in this encounter"
[~2020-09-05 12:19] MED LIST changes: +BACLOFEN10 MG PO; +EPINEPHRIN0.3 MG/0.3 IM; +ESCITALOPRAM OX10 MG PO
[2020-09-05] MEDS ORDERED: NORCO 5-325 TA1 EACH PO (14:25)
[2020-09-05] MEDS ORDERED: ONDANSETRON ODT8 MG PO (14:25)
== END 2020-09-05 14:34 | disposition home or self-care (01) ==
LOC: ED 12:19
DX: N83.202 Unspecified ovarian cyst, left side (principal); F32.9 Major depressive disorder, single episode, unspecified; F41.9 Anxiety disorder, unspecified; J45.909 Unspecified asthma, uncomplicated; G43.909 Migraine, unspecified, not intractable, without status migrainosus; Z88.8 Allergy status to other drugs, medicaments and biological substances; Z88.0 Allergy status to penicillin; Z88.2 Allergy status to sulfonamides; Z88.1 Allergy status to other antibiotic agents; Z88.7 Allergy status to serum and vaccine; Z79.899 Other long term (current) drug therapy
CPT/HCPCS: 36415; 76830; 76856; 81001; 84703; 85025; 99284-25

== ENCOUNTER 2020-11-07 13:31 | Emergency (ER) | payer OTHER ==
[~2020-11-07] VITALS: Ht 157.5 cm; Wt 45.4 kg
[~2020-11-07 13:31] MED LIST changes: +NORCO 5-325 TA1 EACH PO; +ONDANSETRON ODT8 MG PO
--- OUTSIDE RECORDS SUMMARY | 2020-11-07 13:34 | XMS ---
PreManage Notification: TERESA OLIVER [employer] Operations Analyst Events No recent Security Events currently on file CRITERIA MET - [facility] Guidelines CARE PROVIDERS ASTON BRADLEYRoper [facility] Current PHONE: Unknown Guidelines Source: [facility] [place] Guidelines Date: 01/18/2020 Care Coordination: Currently engaged in individual therapy with [facility].\T\nbsp; Please contact [facility] with mental health concerns.\T\nbsp; To/[place]: .\T\nbsp; [facility] Crisis: [phone]. E.D. VISIT COUNT (12 MO.) [facility] [address] [place], [place] [address]José TOTAL 7 NOTE: Visits indicate total known visits. ED/UCC VISIT TRACKING (12 MO.) 11/07/2020 13:32 [facility] [place] TYPE: Emergency COMPLAINT: - ALLERGIC REACTION 09/05/2020 12:20 [facility] [place] TYPE: Emergency COMPLAINT: - ABDOMINAL PAIN DIAGNOSES: - Allergy status to serum and vaccine - Allergy status to penicillin - Anxiety disorder, unspecified - Allergy status to other antibiotic agents - Unspecified ovarian cyst, left side - Left lower quadrant pain - Unspecified asthma, uncomplicated - Migraine, unspecified, not intractable, without status migrainosus - Allergy status to other drugs, medicaments and biological substances - Other half-way (current) drug therapy - Allergy status to sulfonamides - Major depressive disorder, single episode, unspecified 08/25/2020 23:16 [facility] TYPE: Emergency COMPLAINT: - CHEST PAIN DIAGNOSES: - Palpitations - Allergy status to sulfonamides - Allergy to other foods - Major depressive disorder, single episode, unspecified - Allergy status to penicillin - Other half-way (current) drug therapy - Allergy status to other antibiotic agents - Unspecified asthma, uncomplicated - Allergy status to other drugs, medicaments and biological substances 05/20/2020 21:37 [facility] TYPE: Emergency COMPLAINT: - ALLERGIC REACTION DIAGNOSES: - Anxiety disorder, unspecified - Other parts counterman (current) drug therapy - Allergy status to sulfonamides - Major depressive disorder, single episode, unspecified - Food additives allergy status - Other adverse food reactions, not elsewhere classified, initial encounter - Allergy status to analgesic agent - Allergy status to penicillin - Other allergy status, other than to drugs and biological substances - Allergy status to other drugs, medicaments and biological substances 04/05/2020 13:51 [facility] Lilly [place] TYPE: Emergency DIAGNOSES: - Unspecified ovarian cyst, unspecified side - Abdominal Pain - ovarian pain [facility]2020 [facility] [place] [facility] DIAGNOSES: - SOB, Cough - Fever (9 Weeks To 74 Years) - Unspecified asthma with (acute) exacerbation - Cough 01/17/2020 08:15 [facility] DIAGNOSES: - Kidney pain - Tubulo-interstitial nephritis, not specified as acute or chronic - Flank Pain INPATIENT VISIT TRACKING (12 MO.) No inpatient visits to display in this time frame [email or web address]
== END 2020-11-07 15:04 | disposition home or self-care (01) ==
LOC: ED 13:31
DX: T78.1XXA Other adverse food reactions, not elsewhere classified, initial encounter (principal); L29.9 Pruritus, unspecified; J45.909 Unspecified asthma, uncomplicated; F17.200 Nicotine dependence, unspecified, uncomplicated; Z88.8 Allergy status to other drugs, medicaments and biological substances; Z88.0 Allergy status to penicillin; Z91.018 Allergy to other foods; Z88.7 Allergy status to serum and vaccine; Z79.899 Other long term (current) drug therapy
CPT/HCPCS: 99283

== ENCOUNTER 2021-04-24 18:26 | Emergency (ER) | payer OTHER ==
[~2021-04-24] VITALS: Ht 157.5 cm; Wt 44.0 kg
--- OUTSIDE RECORDS SUMMARY | 2021-04-24 18:30 | XMS ---
PreManage Notification: TERESA OLIVER Security Study Coordinator Events No recent Security Events currently on file CRITERIA MET - [facility] Care Guidelines CARE PROVIDERS PAU [facility]DELMER [facility] Current PHONE: [phone] Guidelines [facility]: 01/18/2020 Care Coordination: Currently engaged in individual therapy with [facility].\T\nbsp; Please contact [facility] with mental health concerns.\T\nbsp; To/Tullos: .\T\nbsp; [facility] Crisis: [phone]. E.D. VISIT COUNT (12 MO.) [address] [place] [address] TOTAL 5 NOTE: Visits indicate total known visits. ED/UCC VISIT TRACKING (12 MO.) 04/24/2021 18:27 [facility] [place] TYPE: Emergency COMPLAINT: - DIFFICULTY BREATHING 11/07/2020 13:32 [facility] [place] TYPE: Emergency COMPLAINT: - ALLERGIC REACTION DIAGNOSES: - Other adverse food reactions, not elsewhere classified, initial encounter - Allergy status to other drugs, medicaments and biological substances - Allergy status to penicillin - Nicotine dependence, unspecified, uncomplicated - Unspecified asthma, uncomplicated - Other adverse food reactions, not elsewhere classified, initial encounter - Allergy status to serum and vaccine - Pruritus, unspecified - Allergy to other foods - Other assisted (current) drug therapy 09/05/2020 12:20 [facility] [place] TYPE: Emergency [...] drugs, medicaments and biological substances - Other buttermaker helper (current) drug therapy - Allergy status to sulfonamides - Major depressive disorder, single episode, unspecified 08/25/2020 23:16 [facility] [place] TYPE: Emergency COMPLAINT: - CHEST PAIN DIAGNOSES: - Palpitations - Allergy status to sulfonamides - Allergy to other foods - Major depressive disorder, single episode, unspecified - Allergy status to penicillin - Other assisted (current) drug therapy - Allergy status to other antibiotic agents - Unspecified asthma, uncomplicated - Allergy status to other drugs, medicaments and biological substances 05/20/2020 21:37 [facility] [place] TYPE: Emergency COMPLAINT: - ALLERGIC REACTION DIAGNOSES: - Anxiety disorder, unspecified - Other buttermaker helper (current) drug therapy - Allergy status to sulfonamides - Major depressive disorder, single episode, unspecified - Food additives allergy status - Other adverse food reactions, not elsewhere classified, initial encounter - Allergy status to analgesic agent - Allergy status to penicillin - Other allergy status, other than to drugs and biological substances - Allergy status to other drugs, medicaments and biological substances INPATIENT VISIT TRACKING (12 MO.) No inpatient visits to display in this time frame [id number]
[2021-04-24] MEDS ORDERED: FLOVENT HFA10.6 GM (18:55)
[2021-04-24] MEDS ORDERED: ALBUTEROL2.5 MG/3 M (18:55)
[2021-04-24] MEDS ORDERED: PREDNISONE20 MG PO (20:04)
== END 2021-04-24 20:24 | disposition home or self-care (01) ==
LOC: ED 18:26
DX: J45.901 Unspecified asthma with (acute) exacerbation (principal); Z87.891 Personal history of nicotine dependence; Z88.8 Allergy status to other drugs, medicaments and biological substances; Z88.0 Allergy status to penicillin; Z88.6 Allergy status to analgesic agent; Z88.2 Allergy status to sulfonamides; Z91.018 Allergy to other foods; Z79.899 Other long term (current) drug therapy
CPT/HCPCS: 71045; 99284-25; J7512

== ENCOUNTER 2021-09-01 04:36 | Emergency (ER) | payer OTHER ==
[~2021-09-01 04:36] MED LIST changes: +ALBUTEROL2.5 MG/3 M; +FLOVENT HFA10.6 GM; +PREDNISONE20 MG PO
== END 2021-09-01 05:03 | disposition home or self-care (01) ==
LOC: ED 04:36
DX: R53.1 Weakness (principal); J45.909 Unspecified asthma, uncomplicated; G43.909 Migraine, unspecified, not intractable, without status migrainosus; R29.700 NIHSS score 0; Z87.891 Personal history of nicotine dependence; Z88.6 Allergy status to analgesic agent; Z91.018 Allergy to other foods; Z88.0 Allergy status to penicillin; Z88.2 Allergy status to sulfonamides; Z88.7 Allergy status to serum and vaccine; Z88.8 Allergy status to other drugs, medicaments and biological substances; Z79.52 Long term (current) use of systemic steroids; Z79.899 Other long term (current) drug therapy
CPT/HCPCS: 99284

== ENCOUNTER 2021-11-23 15:35 | Emergency (ER) | payer OTHER ==
[~2021-11-23] VITALS: Ht 157.5 cm; Wt 44.0 kg
== END 2021-11-23 17:45 | disposition home or self-care (01) ==
LOC: ED 15:35
DX: S61.211A Laceration without foreign body of left index finger without damage to nail, initial encounter (principal); W45.8XXA Other foreign body or object entering through skin, initial encounter; J45.909 Unspecified asthma, uncomplicated; G43.909 Migraine, unspecified, not intractable, without status migrainosus; Z87.891 Personal history of nicotine dependence; Z88.8 Allergy status to other drugs, medicaments and biological substances; Z88.0 Allergy status to penicillin; Z88.2 Allergy status to sulfonamides; Z88.6 Allergy status to analgesic agent; Z79.899 Other long term (current) drug therapy; Z79.52 Long term (current) use of systemic steroids
CPT/HCPCS: 90471; 90714; 99282-25

== ENCOUNTER 2022-03-22 15:29 | Emergency (ER) | payer OTHER ==
[~2022-03-22] VITALS: Ht 157.5 cm; Wt 45.4 kg
[2022-03-22] MEDS ORDERED: CEFDINIR300 MG PO (18:25)
[2022-03-22] MEDS ORDERED: PREDNISONE20 MG PO (18:25)
== END 2022-03-22 18:35 | disposition home or self-care (01) ==
LOC: ED 15:29
DX: J45.901 Unspecified asthma with (acute) exacerbation (principal); Z87.891 Personal history of nicotine dependence; Z88.8 Allergy status to other drugs, medicaments and biological substances; Z88.0 Allergy status to penicillin; Z88.6 Allergy status to analgesic agent; Z88.2 Allergy status to sulfonamides; Z79.52 Long term (current) use of systemic steroids
CPT/HCPCS: 36415; 71045; 80048; 84703; 85025; 85379; 94640; 94667; 99285-25; J7512

== ENCOUNTER 2022-09-09 17:27 | Emergency (ER) | payer OTHER ==
[~2022-09-09] VITALS: Ht 157.5 cm; Wt 48.7 kg
[~2022-09-09 17:27] MED LIST changes: +CEFDINIR300 MG PO
[2022-09-09] MEDS ORDERED: ALBUTEROL2.5 MG/3 M INH (18:41)
[2022-09-09] MEDS ORDERED: PREDNISONE20 MG PO (18:41)
== END 2022-09-09 19:14 | disposition home or self-care (01) ==
LOC: ED 17:27
DX: J45.901 Unspecified asthma with (acute) exacerbation (principal); G43.909 Migraine, unspecified, not intractable, without status migrainosus; Z87.891 Personal history of nicotine dependence; Z88.8 Allergy status to other drugs, medicaments and biological substances; Z88.1 Allergy status to other antibiotic agents; Z88.0 Allergy status to penicillin; Z88.2 Allergy status to sulfonamides; Z88.6 Allergy status to analgesic agent; Z88.7 Allergy status to serum and vaccine; Z91.018 Allergy to other foods; Z79.899 Other long term (current) drug therapy
CPT/HCPCS: 94640; 99284-25; J7512

== ENCOUNTER 2025-01-13 17:17 | Emergency (ER) | payer OTHER ==
[~2025-01-13] VITALS: Ht 157.5 cm; Wt 49.4 kg
[~2025-01-13 17:17] MED LIST changes: +ALBUTEROL2.5 MG/3 M INH; +PRENA1 PEARL S1 EACH PO
--- OUTSIDE RECORDS SUMMARY | 2025-01-13 17:24 | XMS ---
PreManage Notification: TERESA OLIVER Security Radial Router Operator Events No recent Security Events currently on file CRITERIA MET - Group Notification CARE PROVIDERS KIRK [facility] 04/25/2021-Current PHONE: [phone] [facility] GROUP INTERNAL MEDICINE-ERIN PHONE: Unknown Care Guidelines exist for the following facilities: Neelam Landaverde ( 01/18/2020 ) Mray VISIT COUNT (12 MO.) 1 A[facility] TOTAL 1 NOTE: Visits indicate total known visits. ED/UCC VISIT TRACKING (12 MO.) 01/13/2025 17:17 [facility] [place] TYPE: Emergency COMPLAINT: - ABD PAIN INPATIENT VISIT TRACKING (12 MO.) No inpatient visits to display in this time frame [id number]
[2025-01-13] MEDS ORDERED: ondansetron HCL 4 MG/2 ML VIAL IV ONE (18:00)
[2025-01-13 18:19] LABS: BASOPHILS 0.9 % (0-2); EOSINOPHILS 4.6 % (0-6); HEMATOCRIT 40.7 % (35.0-50.0); HEMOGLOBIN 14.1 g/dL (12.0-18.0); LYMPHOCYTES 28.1 % (24-44); MCH 30.9 (27-36); MCHC 34.7 g/dl (30-36); MCV 89.2 fl (81-99); MONOCYTES 6.6 % (0-12); NEUTROPHILS 59.8 % (39-80); PLATELET COUNT 471 K/uL (140-440); RBC 4.57 M/ul (4.3-5.7); RDW 12.3 (10.5-15.0)
[2025-01-13 18:30] LABS: ALBUMIN 3.9 g/dL (3.4-5.0); ALBUMIN/GLOBULIN RATIO 1.05 (1.1-2.4); ANION GAP 13.6 (7-21); BILIRUBIN, TOTAL 0.4 mg/dL (0.2-1.0); BUN/CREATININE RATIO 10.84 (6.0-28.6); CALCIUM 9.2 mg/dL (8.5-10.1); CREATININE, SERUM 0.83 mg/dL (0.55-1.02); POTASSIUM 3.6 mmol/L (3.5-5.1); PROTEIN, TOTAL 7.6 g/dL (6.4-8.2)
[2025-01-13 19:00] LABS: BILIRUBIN, URINE NEGATIVE (negative); BLOOD/HGB, URINE TRACE-I (Negative); KETONE, URINE NEGATIVE (Negative); LEUK ESTERASE, URINE NEGATIVE (negative); NITRITE, URINE NEGATIVE (negative)
[2025-01-13 19:07] LABS: RED BLOOD CELLS, URINE 0-1 /hpf (0-5)
[2025-01-13 19:08] LABS: BACTERIA, URINE NONE SEEN /hpf (negative); CASTS, URINE NONE SEEN \\lpf; COLLECTION TYPE, URINE CLEAN CATCH; CRYSTALS, URINE NONE SEEN (0-1+); EPITHELIAL CELLS, URINE SQUAMOUS 2+ /lpf (0-1+); REFLEX CULTURE, URINE No (No)
[2025-01-13] MEDS ORDERED: KETOROLAC TROMETHAMINE 15 MG/ML VIAL IV ONE (19:45)
[2025-01-13] MEDS ORDERED: CARAFATE1 GM PO (20:38)
[2025-01-13] MEDS ORDERED: FAMOTIDINE20 MG PO (20:38)
[2025-01-13 20:40] VITALS: BP 113/79
== END 2025-01-13 20:44 | disposition home or self-care (01) ==
LOC: ED 17:17
PROVIDERS: Emergency Medicine
DX: K29.70 Gastritis, unspecified, without bleeding (principal); J45.909 Unspecified asthma, uncomplicated; Z87.891 Personal history of nicotine dependence; Z88.8 Allergy status to other drugs, medicaments and biological substances; Z88.0 Allergy status to penicillin; Z88.2 Allergy status to sulfonamides; Z88.7 Allergy status to serum and vaccine; Z91.02 Food additives allergy status; Z91.018 Allergy to other foods
CPT/HCPCS: 36415; 76705; 80053; 81001; 83690; 84703; 85025; 96374; 99284-25; J1885

== ENCOUNTER 2025-02-20 00:15 | Emergency (ER) | payer OTHER ==
[~2025-02-20] VITALS: Ht 157.5 cm; Wt 48.1 kg
[~2025-02-20 00:15] MED LIST changes: +CARAFATE1 GM PO; +FAMOTIDINE20 MG PO
--- OUTSIDE RECORDS SUMMARY | 2025-02-20 00:22 | XMS ---
PreManage Notification: TERESA OLIVER Security Anesthesiologist Assistant Certified Events No recent Security Events currently on file CRITERIA MET - Group Notification CARE PROVIDERS KIRK [facility] 04/25/2021-Current PHONE: [phone] [facility] INTERNAL MEDICINE-ERIN PHONE: Unknown Care Guidelines exist for the following facilities: Neelam Landaverde ( 01/18/2020 ) [place] VISIT COUNT (12 MO.) [address] [facility] [address] [facility] TOTAL 2 NOTE: Visits indicate total known visits. ED/UCC VISIT TRACKING (12 MO.) 02/20/2025 00:16 [facility] [place] TYPE: Emergency COMPLAINT: - ARM SWOLLEN/ACHES 01/13/2025 17:17 [facility] [place] TYPE: Emergency COMPLAINT: - ABD PAIN DIAGNOSES: - Allergy status to other drugs, medicaments and biological substances - Allergy status to penicillin - Allergy status to serum and vaccine - Allergy status to sulfonamides - Allergy to other foods - Food additives allergy status - Gastritis, unspecified, without bleeding - Personal history of nicotine dependence - Unspecified abdominal pain - Unspecified asthma, uncomplicated INPATIENT VISIT TRACKING (12 MO.) No inpatient visits to display in this time frame [id number]
[2025-02-20] MEDS ORDERED: ESCITALOPRAM OX20 MG PO (00:29)
[2025-02-20 02:00] VITALS: BP 118/78
== END 2025-02-20 02:00 | disposition home or self-care (01) ==
LOC: ED 00:15
DX: R22.32 Localized swelling, mass and lump, left upper limb (principal); F41.9 Anxiety disorder, unspecified; J45.909 Unspecified asthma, uncomplicated; Z91.018 Allergy to other foods; Z88.8 Allergy status to other drugs, medicaments and biological substances; Z88.1 Allergy status to other antibiotic agents; Z88.6 Allergy status to analgesic agent; Z88.2 Allergy status to sulfonamides; Z88.0 Allergy status to penicillin; Z88.3 Allergy status to other anti-infective agents; Z88.7 Allergy status to serum and vaccine; Z87.891 Personal history of nicotine dependence
CPT/HCPCS: 36415; 85379; 99283

== ENCOUNTER 2025-03-19 06:24 | Emergency (ER) | payer OTHER ==
[~2025-03-19] VITALS: Ht 157.5 cm; Wt 48.5 kg
[~2025-03-19 06:24] MED LIST changes: +ESCITALOPRAM OX20 MG PO
--- OUTSIDE RECORDS SUMMARY | 2025-03-19 06:30 | XMS ---
PreManage Notification: TERESA OLIVER Security Real Estate Salesperson Events No recent Security Events currently on file CRITERIA MET - Group Notification - [facility] - 2 Visits in 30 Days CARE PROVIDERS KIRK [facility] 04/25/2021-Current PHONE: [phone] [facility] MEDICAL GROUP INTERNAL MEDICINE-TAMARA PHONE: Unknown Care Guidelines exist for the following facilities: Neelam Landaverde ( 01/18/2020 ) Mary VISIT COUNT (12 MO.) 3 [facility] TOTAL 3 NOTE: Visits indicate total known visits. ED/UCC VISIT TRACKING (12 MO.) 03/19/2025 06:24 [facility] [place] TYPE: Emergency COMPLAINT: - CHEST TIGHTNESS 02/20/2025 00:16 [facility] [place] TYPE: Emergency COMPLAINT: - ARM SWOLLEN/ACHES DIAGNOSES: - Allergy status to analgesic agent - Allergy status to other anti-infective agents - Allergy status to other antibiotic agents - Allergy status to other drugs, medicaments and biological substances - Allergy status to penicillin - Allergy status to serum and vaccine - Allergy status to sulfonamides - Allergy to other foods - Anxiety disorder, unspecified - Localized swelling, mass and lump, left upper limb - Localized swelling, mass and lump, unspecified - Personal history of nicotine dependence - Unspecified asthma, uncomplicated 01/13/2025 17:17 [facility] [place] TYPE: Emergency [...] visits to display in this time frame [id number]
[2025-03-19] MEDS ORDERED: ONDANSETRON 4 MG TAB ODT SL ONE (06:45)
[2025-03-19 06:59] LABS: BASOPHILS 0.7 % (0-2); EOSINOPHILS 2.1 % (0-6); HEMATOCRIT 40.5 % (35.0-50.0); HEMOGLOBIN 14.1 g/dL (12.0-18.0); LYMPHOCYTES 17.4 % (24-44); MCHC 34.9 g/dl (30-36); MCV 88.8 fl (81-99); MONOCYTES 7.4 % (0-12); NEUTROPHILS 72.4 % (39-80); PLATELET COUNT 314 K/uL (140-440); RBC 4.57 M/ul (4.3-5.7); RDW 13.1 (10.5-15.0)
[2025-03-19] MEDS ORDERED: hydrOXYzine pamoate 25 MG CAP PO ONE (07:00)
[2025-03-19 07:17] LABS: ALBUMIN 4.2 g/dL (3.4-5.0); ALBUMIN/GLOBULIN RATIO 1.35 (1.1-2.4); ALKALINE PHOSPHATASE 60 U/L (46-116); ALT (SGPT) 23 U/L (14-59); ANION GAP 14.3 (7-21); AST (SGOT) 13 U/L (15-37); BILIRUBIN, TOTAL 0.9 mg/dL (0.2-1.0); BUN/CREATININE RATIO 10.71 (6.0-28.6); CALCIUM 8.9 mg/dL (8.5-10.1); CARBON DIOXIDE 25 mmol/L (21-32); CHLORIDE 104 mmol/L (98-107); CREATININE, SERUM 0.84 mg/dL (0.55-1.02); GLOMERULAR FILTRATION RATE,EST 98 mL/min (>60); MAGNESIUM 1.9 mg/dL (1.8-2.4); POTASSIUM 3.3 mmol/L (3.5-5.1); PROTEIN, TOTAL 7.3 g/dL (6.4-8.2); UREA NITROGEN 9 mg/dL (7-18)
[2025-03-19] MEDS ORDERED: CYCLOBENZAPRINE10 MG PO (07:43)
[2025-03-19] MEDS ORDERED: ONDANSETRON ODT8 MG PO (07:45)
[2025-03-19] MEDS ORDERED: LOMOTIL TABLET1 EACH PO (07:45)
[2025-03-19 08:05] VITALS: BP 2/77
--- NOTE | 2025-03-19 21:33 | EKG ---
[facility] [address] [place] [address] Signed Normal sinus rhythm with sinus arrhythmia Normal ECG When compared with ECG of 25-AUG-2020 23:24, Criteria for Septal infarct are no longer present Confirmed by Marleny Tejeda MD () on 03/19/2025 9:32:56 PM Electronically Signed By: MARLENY TEJEDA MD 03/19/252132 PATIENT NAME: MELODYDEEDEETERESA ASHLY Electrocardiogram DATE OF : 89 PHYSICIAN: MARLENY TEJEDA MD REPORT #: [id number] REPORT IS CONFIDENTIAL AND NOT TO BE RELEASED WITHOUT AUTHORIZATION
== END 2025-03-19 08:05 | disposition home or self-care (01) ==
LOC: ED 06:24
PROVIDERS: Family Medicine
DX: R07.89 Other chest pain (principal); B34.9 Viral infection, unspecified; J45.909 Unspecified asthma, uncomplicated; G43.909 Migraine, unspecified, not intractable, without status migrainosus; Z79.899 Other long term (current) drug therapy; Z88.0 Allergy status to penicillin; Z88.2 Allergy status to sulfonamides; Z91.018 Allergy to other foods; Z88.8 Allergy status to other drugs, medicaments and biological substances; Z88.1 Allergy status to other antibiotic agents; Z88.6 Allergy status to analgesic agent; Z87.891 Personal history of nicotine dependence
CPT/HCPCS: 36415; 71045; 80053; 83735; 84484; 85025; 93005; 93010; 99285-25; A9270; Q0177; U0002

== ENCOUNTER 2025-04-02 20:18 | Emergency (ER) | payer OTHER ==
[~2025-04-02] VITALS: Ht 157.5 cm; Wt 46.8 kg
[~2025-04-02 20:18] MED LIST changes: +CYCLOBENZAPRINE10 MG PO; +LOMOTIL TABLET1 EACH PO
--- OUTSIDE RECORDS SUMMARY | 2025-04-02 20:25 | XMS ---
PreManage Notification: TERESA OLIVER Security Strainer Mill Operator Events No recent Security Events currently on file CRITERIA MET - Group Notification - [facility] - 2 Visits in 30 Days CARE PROVIDERS KIRK High [facility] 04/25/2021-Current PHONE: [phone] [facility] MED[facility] GROUP INTERNAL MEDICINE-TAMARA PHONE: Unknown Care Guidelines exist for the following facilities: Neelam Landaverde ( 01/18/2020 ) Mary VISIT COUNT (12 MO.) 4 [facility]NA [facility] TOTAL 4 NOTE: Visits indicate total known visits. 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
[2025-04-03 02:06] VITALS: BP 111/79
== END 2025-04-03 02:07 | disposition home or self-care (01) ==
LOC: ED 20:18
DX: F41.9 Anxiety disorder, unspecified (principal); J45.909 Unspecified asthma, uncomplicated; Z87.891 Personal history of nicotine dependence; Z91.018 Allergy to other foods; Z88.8 Allergy status to other drugs, medicaments and biological substances; Z79.899 Other long term (current) drug therapy
CPT/HCPCS: 99283

== ENCOUNTER 2025-04-20 10:47 | Emergency (ER) | payer OTHER ==
[~2025-04-20] VITALS: Ht 157.5 cm; Wt 47.2 kg
--- OUTSIDE RECORDS SUMMARY | 2025-04-20 10:54 | XMS ---
PreManage Notification: TERESA OLIVER Security Dining Chair Seat Cushion Trimmer Events No recent Security Events currently on file CRITERIA MET - Group Notification - [facility] - 2 Visits in 30 Days CARE PROVIDERS KIRK High [facility] 04/25/2021-Current PHONE: [phone] [facility] MEDICAL GROUP INTERNAL MEDICINE-TAMARA PHONE: Unknown Care Guidelines exist for the following facilities: Neelam Landaverde ( 01/18/2020 ) Mary VISIT COUNT (12 MO.) 5 ANA [facility] TOTAL 5 NOTE: Visits indicate total known visits. ED/UCC VISIT TRACKING (12 MO.) 04/20/2025 10:47 [facility] [place] TYPE: Emergency COMPLAINT: - CHEST PAIN/PRESSURE 04/02/2025 20:19 [facility] [place] TYPE: Emergency COMPLAINT: - BURNING SENSATION LEFT SIDE DIAGNOSES: - Allergy status to other drugs, medicaments and biological substances - Allergy to other foods - Anxiety disorder, unspecified - Other long term acute care registered nurse (current) drug therapy - Personal history of nicotine dependence - Unspecified asthma, uncomplicated 03/19/2025 06:24 [facility] [place] TYPE: Emergency [...] migrainosus - Other chest pain - Other long term acute care registered nurse (current) drug therapy - Personal history of [...] dependence - Unspecified asthma, uncomplicated 01/13/2025 17:[address] [facility] [place] TYPE: Emergency COMPLAINT: - ABD PAIN [...] visits to display in this time frame [id number]
[2025-04-20 11:18] LABS: BASOPHILS 1.1 % (0.1-1.2); EOSINOPHILS 7.6 % (0.7-5.8); HEMATOCRIT 43.3 % (34.1-44.9); HEMOGLOBIN 14.4 g/dL (11.2-15.7); LYMPHOCYTES 28.2 % (19.3-51.7); MCH 30.2 PG (25.6-32.2); MCHC 33.3 g/dL (32.2-35.5); MCV 90.8 fL (79.4-94.8); MONOCYTES 6.6 % (4.7-12.5); NEUTROPHILS 56.2 % (34.0-71.1); PLATELET COUNT 461 K/uL (182-369); RBC 4.77 M/uL (3.93-5.22)
[2025-04-20 11:32] LABS: ALBUMIN 3.9 g/dL (3.4-5.0); ALBUMIN/GLOBULIN RATIO 1.22 (1.1-2.4); ALKALINE PHOSPHATASE 58 U/L (46-116); ALT (SGPT) 31 U/L (14-59); ANION GAP 9.8 (7-21); AST (SGOT) 18 U/L (15-37); BILIRUBIN, TOTAL 0.4 mg/dL (0.2-1.0); BUN/CREATININE RATIO 12.34 (6.0-28.6); CALCIUM 9.1 mg/dL (8.5-10.1); CARBON DIOXIDE 27 mmol/L (21-32); CHLORIDE 104 mmol/L (98-107); CREATININE, SERUM 0.81 mg/dL (0.55-1.02); GLOMERULAR FILTRATION RATE,EST 103 mL/min (>60); MAGNESIUM 1.9 mg/dL (1.8-2.4); POTASSIUM 3.8 mmol/L (3.5-5.1); PROTEIN, TOTAL 7.1 g/dL (6.4-8.2); UREA NITROGEN 10 mg/dL (7-18)
[2025-04-20 14:45] VITALS: BP 115/76
--- NOTE | 2025-04-20 16:11 | EKG ---
[facility] [address] [place] [address] Signed Normal sinus rhythm with sinus arrhythmia Cannot rule out Anterior infarct , age undetermined Abnormal ECG When compared with ECG of 19-MAR-2025 06:25, No significant change was found Confirmed by Marleny Tejeda MD () on 04/20/2025 4:11:39 PM Electronically Signed By: MARLENY TEJEDA MD 04/20/25 1611 PATIENT NAME: TERESA OLIVER Electrocardiogram DATE OF : 89 PHYSICIAN: MARLENY TEJEDA MD REPORT #: [id number] REPORT IS CONFIDENTIAL AND NOT TO BE RELEASED WITHOUT AUTHORIZATION
== END 2025-04-20 14:31 | disposition home or self-care (01) ==
LOC: ED 10:47
PROVIDERS: Emergency Medicine
DX: I24.9 Acute ischemic heart disease, unspecified (principal); I71.00 Dissection of unspecified site of aorta; J45.909 Unspecified asthma, uncomplicated; Z79.899 Other long term (current) drug therapy; Z91.018 Allergy to other foods; Z88.0 Allergy status to penicillin; Z88.2 Allergy status to sulfonamides; Z88.1 Allergy status to other antibiotic agents; Z88.8 Allergy status to other drugs, medicaments and biological substances; Z87.891 Personal history of nicotine dependence
CPT/HCPCS: 36415; 71045; 71275; 74174; 80053; 83735; 84484; 84703; 85025; 93005; 93010; 99285-25

== ENCOUNTER 2025-04-30 15:48 | Emergency (ER) | payer OTHER ==
[~2025-04-30] VITALS: Ht 157.5 cm; Wt 48.5 kg
--- OUTSIDE RECORDS SUMMARY | 2025-04-30 15:55 | XMS ---
PreManage Notification: TERESA OLIVER Security Mirror Painter Events No recent Security Events currently on file CRITERIA MET - 6 ED Visits in 6 Months - Group Notification - [facility] - 2 Visits in 30 Days CARE PROVIDERS CHRIS MCDONALD [facility] MEDICAL GROUP INTERNAL MEDICINE-TAMARA PHONE: Unknown Care Guidelines exist for the following facilities: [facility] Saima ( 01/18/2020 ) Mary VISIT COUNT (12 MO.) 6 [facility] TOTAL 6 NOTE: Visits indicate total known visits. ED/UCC VISIT TRACKING (12 MO.) 04/30/2025 15:49 [facility] [place] TYPE: Emergency COMPLAINT: - ABDOM AND BACK PAIN 04/20/2025 10:47 [facility] [place] TYPE: Emergency COMPLAINT: - CHEST PAIN/PRESSURE DIAGNOSES: - Acute ischemic heart disease, unspecified - Allergy status to other antibiotic agents - Allergy status to other drugs, medicaments and biological substances - Allergy status to penicillin - Allergy status to sulfonamides - Allergy to other foods - Dissection of unspecified site of aorta - Other chest pain - Other termination clerk (current) drug therapy - Personal history of nicotine dependence - Unspecified asthma, uncomplicated 04/02/2025 20:19 [facility] [place] TYPE: Emergency COMPLAINT: - BURNING SENSATION LEFT SIDE DIAGNOSES: - Allergy status to other drugs, medicaments and biological substances - Allergy to other foods - Anxiety disorder, unspecified - Other fpc (current) drug therapy - Personal history of [...] migrainosus - Other chest pain - Other fpc (current) drug therapy - Personal history of [...] visits to display in this time frame [id number]
[2025-04-30 16:19] LABS: BASOPHILS 0.8 % (0.1-1.2); EOSINOPHILS 4.9 % (0.7-5.8); HEMATOCRIT 39.9 % (34.1-44.9); HEMOGLOBIN 13.3 g/dL (11.2-15.7); LYMPHOCYTES 10.4 % (19.3-51.7); MCH 30.4 PG (25.6-32.2); MCHC 33.3 g/dL (32.2-35.5); MCV 91.3 fL (79.4-94.8); MONOCYTES 8.6 % (4.7-12.5); NEUTROPHILS 75.1 % (34.0-71.1); PLATELET COUNT 320 K/uL (182-369); RBC 4.37 M/uL (3.93-5.22)
[2025-04-30 16:30] LABS: INR 1.19 (0.80-1.30); PROTIME 14.6 Sec (11.2-14.2)
[2025-04-30 16:31] LABS: BILIRUBIN, URINE NEGATIVE (negative); BLOOD/HGB, URINE NEGATIVE (Negative); KETONE, URINE NEGATIVE (Negative); LEUK ESTERASE, URINE NEGATIVE (negative); NITRITE, URINE NEGATIVE (negative)
[2025-04-30 16:36] LABS: ALBUMIN 3.6 g/dL (3.4-5.0); ALBUMIN/GLOBULIN RATIO 1.16 (1.1-2.4); BILIRUBIN, TOTAL 0.4 mg/dL (0.2-1.0); CALCIUM 8.1 mg/dL (8.5-10.1); CREATININE, SERUM 0.8 mg/dL (0.55-1.02); MAGNESIUM 1.9 mg/dL (1.8-2.4); PROTEIN, TOTAL 6.7 g/dL (6.4-8.2)
[2025-04-30] MEDS ORDERED: REGLAN10 MG PO (17:07)
[2025-04-30 17:17] VITALS: BP 118/88
== END 2025-04-30 17:17 | disposition home or self-care (01) ==
LOC: ED 15:48
PROVIDERS: Emergency Medicine
DX: R10.13 Epigastric pain (principal); J45.909 Unspecified asthma, uncomplicated; Z88.8 Allergy status to other drugs, medicaments and biological substances; Z88.0 Allergy status to penicillin; Z88.2 Allergy status to sulfonamides; Z87.891 Personal history of nicotine dependence
CPT/HCPCS: 36415; 80053; 81003; 83690; 83735; 84703; 85025; 85610; 99284

== ENCOUNTER 2025-07-28 17:32 | Emergency (ER) | payer OTHER ==
[~2025-07-28] VITALS: Ht 157.5 cm; Wt 48.3 kg
[~2025-07-28 17:32] MED LIST changes: +REGLAN10 MG PO
--- OUTSIDE RECORDS SUMMARY | 2025-07-28 17:39 | XMS ---
PreManage Notification: TERESA OLIVER Security Child Development Assistant Events No recent Security Events currently on file CRITERIA MET - 6 ED Visits in 6 Months - Group Notification CARE PROVIDERS KIRK High [facility] 04/25/2021-Current PHONE: [phone] [facility] INTERNAL MEDICINE-TAMARA PHONE: Unknown Care Guidelines exist for the following facilities: Neelam Saima ( 01/18/2020 ) [place] VISIT COUNT (12 MO.) [address] [facility] [address] [facility] TOTAL 7 NOTE: Visits indicate total known visits. ED/UCC VISIT TRACKING (12 MO.) 07/28/2025 17:32 [facility] [place] TYPE: Emergency COMPLAINT: - STOOL PROBLEM 04/30/2025 15:49 [facility] [place] TYPE: Emergency COMPLAINT: - ABDOM AND BACK PAIN DIAGNOSES: - Allergy status to other drugs, medicaments and biological substances - Allergy status to penicillin - Allergy status to sulfonamides - Epigastric pain - Personal history of nicotine dependence - Unspecified asthma, uncomplicated 04/20/2025 10:47 [facility] [place] TYPE: Emergency COMPLAINT: - CHEST PAIN/PRESSURE DIAGNOSES: - Acute ischemic heart disease, unspecified - Allergy status to other antibiotic agents - Allergy status to other drugs, medicaments and biological substances - Allergy status to penicillin - Allergy status to sulfonamides - Allergy to other foods - Dissection of unspecified site of aorta - Other chest pain - Other terminologist (current) drug therapy - Personal history of nicotine dependence - Unspecified asthma, uncomplicated 04/02/2025 20:19 [facility] [place] TYPE: Emergency COMPLAINT: - BURNING SENSATION LEFT SIDE DIAGNOSES: - Allergy status to other drugs, medicaments and biological substances - Allergy to other foods - Anxiety disorder, unspecified - Other terminologist (current) drug therapy - Personal history of [...] migrainosus - Other chest pain - Other usp (current) drug therapy - Personal history of [...] visits to display in this time frame [id number]
[2025-07-28 18:10] LABS: BASOPHILS 0.7 % (0.1-1.2); EOSINOPHILS 5.6 % (0.7-5.8); LYMPHOCYTES 25.1 % (19.3-51.7); MCH 30.0 PG (25.6-32.2); MCHC 33.3 g/dL (32.2-35.5); MCV 89.9 fL (79.4-94.8); MONOCYTES 8.9 % (4.7-12.5); NEUTROPHILS 59.4 % (34.0-71.1); RBC 4.67 M/uL (3.93-5.22)
[2025-07-28] MEDS ORDERED: SODIUM CHLORIDE 0.9% 500 ML IV PRN (18:15)
[2025-07-28 18:19] LABS: INR 1.1 (0.80-1.30); PROTIME 13.5 Sec (11.2-14.2)
[2025-07-28 18:23] LABS: ALT (SGPT) 23.0 U/L (14-59); AST (SGOT) 13.0 U/L (15-37); GLOMERULAR FILTRATION RATE,EST 111.0 mL/min (>60); PROTEIN, TOTAL 7.4 g/dL (6.4-8.2); UREA NITROGEN 11.0 mg/dL (7-18)
[2025-07-28 19:01] LABS: ABO A; ANTIBODY SCREEN NEGATIVE; RH POSITIVE
[2025-07-28 19:17] VITALS: BP 119/86
== END 2025-07-28 19:18 | disposition home or self-care (01) ==
LOC: ED 17:32
PROVIDERS: Emergency Medicine
DX: R10.13 Epigastric pain (principal); J45.909 Unspecified asthma, uncomplicated; Z87.891 Personal history of nicotine dependence; Z88.0 Allergy status to penicillin; Z88.2 Allergy status to sulfonamides; Z88.8 Allergy status to other drugs, medicaments and biological substances; Z88.7 Allergy status to serum and vaccine; Z91.018 Allergy to other foods; Z79.899 Other long term (current) drug therapy
CPT/HCPCS: 36415; 80053; 85025; 85610; 85730; 86850; 86900; 86901; 99284

== ENCOUNTER 2025-10-10 16:56 | Emergency (ER) | payer OTHER | END 2025-10-10 21:34 | disposition home or self-care (01) | LOC: ED 16:56 | DX: K29.70 Gastritis, unspecified, without bleeding (principal); J45.901 Unspecified asthma with (acute) exacerbation; Z87.891 Personal history of nicotine dependence; Z91.018 Allergy to other foods; Z88.0 Allergy status to penicillin; Z88.2 Allergy status to sulfonamides; Z88.8 Allergy status to other drugs, medicaments and biological substances ==